=== PATIENT | female | born 1985 | race Caucasian/White ===

== ENCOUNTER 2017-09-12 15:43 | Emergency (ER) | payer MEDICAID, SELFPAY ==
[2017-09-12 15:43] VITALS: BP 133/90; PULSE 101; RESP 18; TEMP 36.1; O2SAT 100; BMI 48.0
--- NOTE | 2017-09-12 16:00 | ED.VISSUMM ---
- ER Visit Summary Date of Service: 09/12/17 Chief Complaint: Neck pain History of Present Illness: The patient is a 32 F states she woke 3 days ago with right-sided neck pain. She thinks she slept on it wrong. She continues to have pain with palpation with turning her head to the side. She has been taking ibuprofen 800 mg into the single dose of Flexeril. Patient states she now has a headache because of the neck pain. She denies pain radiating into her arms. She denies paresthesias or weakness. Physical Examination: Vital signs are unremarkable. Patient's lying in bed no acute distress. Head neck examination was no obvious external sign of trauma. She is reproducible tenderness along the sternocleidomastoid on the right side of her neck. No edema is noted. TMs are clear with some scarring noted on the right. No acute infection is appreciated. Heart is regular rate and rhythm. Lung sounds are clear. Neuro exam is normal. Test Results: [] Emergency Department Course and Treatment: I discussed with patient that anti-inflammatories and muscle relaxants are appropriate. She will be given new prescriptions for ibuprofen and Flexeril. These will be sent to [facility] for her. Treatment Plan: [] Disposition: Discharge Impression: Muscle spasm, right sternomastoid. This note was generated with [employer] dictation software. It may contain incorrect words, spelling, and punctuation that were not noted in review of the chart prior to signing ED Disposition - Plan for ED Patient: Chief Complaint: Other, Pain/Inj Referrals: Guy Patiño MD [Primary Care Provider] -
--- NOTE | 2017-09-12 16:02 | ED.DEP ---
ED Disposition - Plan for ED Patient: Disposition: Home or Assisted Living Chief Complaint: Other, Pain/Inj Prescriptions: Ibuprofen [Motrin] 800 mg PO TID PRN PRN #20 tab PRN Reason: Pain Cyclobenzaprine [Flexeril] 10 mg PO TID PRN #20 tab PRN Reason: Muscle Spasm Referrals: Guy Patiño MD [Primary Care Provider] - 1 Week if not improving
[2017-09-12] MEDS: Ibuprofen 400 MG Tablet 800 MG PO (16:13)
== END 2017-09-12 16:18 | disposition home or self-care (01) ==
LOC: ED 16:07
PROVIDERS: Emergency Provider Emergency Medicine; Family Provider Internal Medicine; PCP Internal Medicine
DX: M62.838 Other muscle spasm (principal); E66.9 Obesity, unspecified; F41.9 Anxiety disorder, unspecified; F31.9 Bipolar disorder, unspecified; Z87.442 Personal history of urinary calculi; Z72.0 Tobacco use; Z79.899 Other long term (current) drug therapy
CPT/HCPCS: 99283

== ENCOUNTER 2017-09-19 16:50 | Emergency (ER) | payer MEDICAID, SELFPAY ==
[2017-09-19 16:52] VITALS: BP 128/81; PULSE 104; RESP 16; TEMP 36.9; O2SAT 98; BMI 48.0
--- NOTE | 2017-09-19 17:29 | CT_ITS ---
STUDY: CT ABDOMEN AND PELVIS WITHOUT CONTRAST REASON FOR EXAM: Female, 32 years old. Right flank pain, heavy period x 2 days RADIATION DOSAGE (If Supplied By Facility): CTDIvol = ( 17.58 ) mGy, DLP = ( 976.86 ) mGycm TECHNIQUE: Transaxial images were obtained from the dome of the diaphragm to the symphysis pubis without oral contrast, and without intravenous contrast. Sagittal and coronal images were reconstructed. Individualized dose optimization techniques were used for this CT. COMPARISON: July 26, 2017. FINDINGS: The visualized lung bases are unremarkable. The visualized portions of the heart are within normal limits. Normal liver. Nonvisualization of the gallbladder. No significant dilatation of the extrahepatic biliary system. Normal spleen. Normal pancreas. Normal bilateral adrenal glands. Normal right kidney. Normal left kidney. Normal visualized stomach. Normal small intestine. Normal colon. The appendix is visualized. Normal abdominal aorta. Normal inferior vena cava. Normal retroperitoneum. Normal urinary bladder. Normal uterus. Tubal ligation clips in the pelvis. Normal abdominal wall. Normal osseous structures. CT/Abdomen/Pelvis without Cont IMPRESSION: No acute pathology is noted of the abdomen and pelvis. Electronically Signed: Jose Alberto Kenney DO at 18:57 EST Tel [phone], Service support ,
[2017-09-19] MEDS: Ketorolac 30 MG/ML Syringe IV (17:42)
[2017-09-19] MEDS: proCHLORPERazine 10 MG/2 ML Vial IV (17:42)
[2017-09-19] MEDS: 0.9% Normal Saline 1,000 ML 999 ML IV (17:42)
[2017-09-19] MEDS: DiphenhydrAMINE 50 MG/ML Syringe IV (17:42)
[2017-09-19 18:14] LABS: Absolute Lymphocyte Count 2.57 X10^3/ul (0.83-4.51); Absolute Neutrophil Count 4.8 X10^3/uL (2.0-7.7); Basophil# 0.04 X10^3/uL; Basophil% 0.5 % (0-1); Eosinophil# 0.35 X10^3/uL; Eosinophils% 4.2 % (0-5); Hematocrit 33.3 % (37-47); Hemoglobin 10.1 g/dl (12.0-15.0); Lymphocyte # 2.57 X10^3/ul (4.0); Lymphocyte % 30.6 % (19-41); Mean Corp Hgb Conc 30.3 g/gl (32-36); Mean Corpuscular Hgb 22.7 pg (27.0-32.0); Mean Corpuscular Volume 74.8 fL (81-99); Mean Platelet Vol. 10.7 fl (6.2-12.0); Monocyte# 0.66 X10^3/uL; Monocyte% 7.8 % (0-10); Neutrophil # 4.78 X10^3/uL (2.7-7.7); Neutrophil % 56.8 % (47-70); Platelet Count 305 K/mm3 (150-450); RBC Distribution Width CV 20.3 % (11.6-14.6); RBC Distribution Width SD 52.8 fl (35.1-43.9); Red Blood Count 4.45 M/mm3 (4.2-5.4); White Blood Count 8.4 K/mm3 (4.4-11.0)
[2017-09-19 18:18] LABS: Differential Indicated SCAN CRITERIA MET; POSITIVE COUNT NO; POSITIVE DIFFERENTIAL NO; POSITIVE MORPHOLOGY YES
[2017-09-19 18:39] LABS: Anion Gap 7 (5-15); BUN 11 mg/dL (7-18); BUN/Creat Ratio 22.5 RATIO (10-20); Calcium,Total 8.8 mg/dL (8.5-10.1); Chloride 109 mmol/L (98-107); Creatinine, Serum 0.49 mg/dL (0.55-1.02); EST Glomerular Filtration Rate 158 mL/min (>60); Est Glom Filt Rate - Afr Amer 191 mL/min (>60); Estimated Creatinine Clearance 181.54 ml/min; Glucose 93 mg/dL (74-106); Potassium 3.5 mmol/L (3.5-5.1); Sodium Level 141 mmol/L (136-145)
[2017-09-19 18:45] LABS: Anisocytosis 1+; Differential Comment SCANNED; Hypochromasia 1+; Microcytosis 1+; Ovalocyte RARE
[2017-09-19 18:52] VITALS: RESP 14
[2017-09-19 19:01] LABS: Pregnancy, Serum, hCG Quali. NEGATIVE Negative (0-9 Nonpreg)
[2017-09-19 19:34] LABS: Bacteria 0 SEEN /hpf (None Seen); White Blood Cells 0 SEEN /hpf (0-5)
[2017-09-19 19:35] LABS: Color, Urine Yellow (Yellow); Glucose, Dipstick Normal (Normal); Leukocyte Esterase-Dipstick 25 /ul (Negative); Nitrite-Dipstick Negative (Negative); Occult Blood-Urine Negative /ul (Negative); Protein-Dipstick 15 mg/dl (Negative); Specific Gravity, Urine 1.025 (1.002-1.030); Urine Clarity Sl. Cloudy (Clear); Urine Urobilinogen 4 mg/dl (Normal)
[2017-09-19 19:38] LABS: Ketone-Dipstick Negative (Negative)
--- NOTE | 2017-09-19 19:39 | ED.DCSUM_ITS ---
- ER Visit Summary Date of Service: 09/19/17 Chief Complaint: Vaginal bleeding History of Present Illness: The patient is a [address] Campbell and Dr[address] Patiño. She reports that she has vaginal bleeding began approximately 3 days ago. States that initially it was similar to her normal.. However, this morning she been passing clots approximately size of a quarter. She reports the bleeding has become heavier and she is now having to change a tampon once an hour. Patient reports a sharp stabbing right lower quadrant and right flank pain that began today. Senna 10 severity. Is worsened by movement. She is not taking anything for pain. States is similar to when she had kidney stones in the past. Finally on review of systems patient complains of a migraine headache to 6 out of 10 severity. She reports she has a history of similar headaches. She denies any numbness or weakness. Physical Examination: Vitals: Stable. Afebrile. General: Well-nourished and well-developed. Head: Normocephalic atraumatic. Neck: Supple, no lymphadenopathy. No JVD. Nontender. Cardiovascular: Regular rate and rhythm. No murmurs. Respiratory: No respiratory distress. Clear to auscultation bilaterally. Abdominal: Soft, mild right lower quadrant tenderness to palpation, nondistended , normal bowel sounds. No guarding, rebound, or peritoneal signs. Pelvic: Refused. Back: Moderate right CVA tenderness. Extremities: Nontender, no edema. Skin: Normal color, no rash. Neurologic: Alert and oriented ?3. Cranial nerves II through XII are intact. Normal strength and sensation. Psych: Normal affect. Test Results: CBC is marked for an H&H of 10.1 and 33.3. Her hemoglobin has ranged between 9.8 and 11.3 since 2017. Chem-7 is more for chloride of 109 and creatinine is 0.49. test is negative. CT flank shows no ureteral stones. Also shows a normal appendix. Urinalysis is negative. Emergency Department Course and Treatment: Patient had an IV placed. She was given Toradol, Benadryl, Compazine IV. She is resting comfortably. Treatment Plan: Patient was discussed with Dr. Hayes. She is instructed to take ibuprofen for pain and follow-up with Dr. Campbell in 2 weeks if not improving. Disposition: To home in improved and stable condition. Impression: 1. Dysfunctional uterine bleeding. 2. Flank pain, uncertain cause. This note was generated with [employer] dictation software. It may contain incorrect words, spelling, and punctuation that were not noted in review of the chart prior to signing ED Disposition - Plan for ED Patient: Disposition: Home or Assisted Living Chief Complaint: Vag Bleeding Instructions: ED Bleed Irregular Vaginal, ED Flank Pain Uncertain Cause Prescriptions: Ibuprofen [Motrin] 800 mg PO TID PRN PRN #20 tablet PRN Reason: Pain Referrals: Quincy Campbell MD [STAFF PHYSICIAN] - 1-2 Weeks Guy Patiño MD [Primary Care Provider] - 3-5 Days if not improving
[2017-09-19 19:40] LABS: Urine Bilirubin Dipstick 1 mg/dL (Negative)
[2017-09-19 19:51] LABS: Mucous, Urine 2+ /hpf (<or=2+); Squamous Epithelial Cells - UA 0-5 SEEN /hpf (5-10)
[2017-09-19 19:53] LABS: Red Blood Cells-Urine 0 SEEN /hpf (0-5)
[2017-09-19 20:22] VITALS: BP 120/66; PULSE 85; RESP 16; O2SAT 95
== END 2017-09-19 20:27 | disposition home or self-care (01) ==
LOC: ED 17:35
PROVIDERS: Emergency Provider Emergency Medicine; Family Provider Internal Medicine; PCP Internal Medicine
DX: N93.8 Other specified abnormal uterine and vaginal bleeding (principal); R10.9 Unspecified abdominal pain; Z87.442 Personal history of urinary calculi; Z72.0 Tobacco use
CPT/HCPCS: 74176; 80048; 81001; 84703; 85025; 96361; 96374; 96375; 99283; J7030; A4216

== ENCOUNTER 2017-09-26 12:19 | Emergency (ER) | payer MEDICAID, SELFPAY ==
[2017-09-26 12:20] VITALS: BP 124/47; PULSE 114; RESP 22; TEMP 36.6; O2SAT 97; BMI 48.3
--- NOTE | 2017-09-26 12:52 | ED.DCSUM_ITS ---
- ER Visit Summary Date of Service: 09/26/17 Chief Complaint: [Cough] History of Present Illness: The patient is a 32 F [presents the emergency department with 3 days of cough sore throat runny nose weakness shortness of breath. She states the cough is nonproductive. She has associated headache. Her son had a similar illness but he is doing better. She does smoke. She states her chest hurts when she coughs. 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 ] Phy blood pressure sical Examination: WN WD NAD PERRL EOMI MMM Serous otitis bilaterally NECK supple and nontender, no masses RRR no murmur rub or gallop, no peripheral edema, symmetric radial pulses Good air movement but end expiratory wheezing in all lung watkins no respiratory distress ABDOMEN is soft and nontender, normal bowel sounds, no distension, no rebound or guarding SKIN is warm and dry no rashes Alert and Oriented x3, CN II-XII in tact, no motor or sensory deficits, gait normal No lymphadenopathy [] Test Results: [] Emergency Department Course and Treatment: [Chest x-ray shows a right lower lobe infiltrate. Patient was given breathing treatments and did improve slightly. Influenza was negative. Patient's pulse ox was 97% on room air. Patient states that she did not want to go home with this because she was concerned about her children. I did describe infectious precautions with her. Currently she has no signs of sepsis. She is not in respiratory distress. I think she can safely be treated at home. I did precaution her carefully about reasons for which to return including fever and worsening shortness of breath. We will start her on Levaquin Medrol albuterol MDI and Hycodan cough syrup.] Treatment Plan: [] Disposition: [Discharge] Impression: [Community acquired pneumonia] This note was generated with [employer] dictation software. It may contain incorrect words, spelling, and punctuation that were not noted in review of the chart prior to signing ED Disposition - Plan for ED Patient: Chief Complaint: Shortness of Breath Referrals: Guy Patiño MD [Primary Care Provider] -
[2017-09-26] MEDS: Ipratropium/Albuterol Sulfate 3 ML AMPUL.NEB INHALATION (13:02)
[2017-09-26] MEDS: Albuterol 2.5 MG/3 ML VIAL.NEB. INHALATION (13:02)
[2017-09-26] MEDS: Triamcinolone Acetonide 40 MG/ML Vial IM (13:02)
[2017-09-26 13:05] VITALS: PULSE 112; RESP 18
--- NOTE | 2017-09-26 13:20 | RAD_ITS ---
STUDY: X-RAY CHEST REASON FOR EXAM: Female, 32 years old. Cough. TECHNIQUE: PA and lateral views of the chest. COMPARISON: Comparison is made with prior study dated May 08, 2017. FINDINGS: There now is evidence of focal infiltrate in the posterior medial segment of the right lower lobe. There is no demonstrated pleural abnormality. Normal size heart. Normal mediastinum and jag. Normal visualized pulmonary arteries. Normal visualized aortic arch and descending thoracic aorta. Normal visualized thoracic spine. Normal visualized ribs, clavicles, and shoulders. There is no demonstrated abnormality of the visualized soft tissue structures of the upper abdomen. RAD/Chest PA and Lateral IMPRESSION: Focal infiltrate in the posterior medial segment of the right lower lobe. Electronically Signed: Ej Sam MD at 14:02 EST Tel [phone], Service support ,
--- NOTE | 2017-09-26 14:33 | ED.DEP ---
ED Disposition - Plan for ED Patient: Chief Complaint: Shortness of Breath Instructions: ED Pneumonia Adult Prescriptions: Albuterol Inhaler [Ventolin Hfa] 1 - 2 puff INHALATION Q6H PRN PRN #1 inhaler PRN Reason: Wheezing Hydrocodone Bit/Homatropine [Hycodan Syrup] 5 ml GT Q6H PRN PRN 4 Days #100 l PRN Reason: Cough Levofloxacin [Levaquin] 750 mg PO DAILY #5 tablet MethylPREDNISolone DosePak [Medrol DosePak] 4 mg PO UD #1 box Referrals: Guy Patiño MD [Primary Care Provider] - 3-5 Days
[2017-09-26] MEDS: levoFLOXacin 750 MG Tablet PO (14:43)
[2017-09-26 14:46] VITALS: PULSE 104; TEMP 34.4
== END 2017-09-26 14:47 | disposition home or self-care (01) ==
PROVIDERS: Emergency Provider Emergency Medicine; Family Provider Internal Medicine; PCP Internal Medicine
DX: J18.9 Pneumonia, unspecified organism (principal); F17.200 Nicotine dependence, unspecified, uncomplicated; E66.9 Obesity, unspecified
CPT/HCPCS: 71046; 87804; 90471; 94640; 96372; 99283

== ENCOUNTER 2017-09-28 12:45 | Emergency (ER) | payer MEDICAID, SELFPAY ==
[2017-09-28 12:47] VITALS: BP 125/75; PULSE 119; RESP 22; TEMP 36.5; O2SAT 94; BMI 47.0
[2017-09-28] MEDS: Ipratropium/Albuterol Sulfate 3 ML AMPUL.NEB INHALATION (13:10)
[2017-09-28] MEDS: Albuterol 2.5 MG/3 ML VIAL.NEB. INHALATION ×3 (13:10→13:12)
[2017-09-28 13:11] VITALS: PULSE 84; RESP 20
[2017-09-28 13:37] VITALS: PULSE 119; RESP 22; O2SAT 92
[2017-09-28 13:45] VITALS: O2SAT 93
--- NOTE | 2017-09-28 14:32 | ED.DCSUM_ITS ---
- ER Visit Summary Date of Service: 09/28/17 Chief Complaint: I am no better History of Present Illness: The patient is a 32 F seen on September 26 and diagnosed with pneumonia. Dictation, lab results, x-ray were reviewed. Was treated with levofloxacin 750 mg and albuterol metered-dose inhaler. She continues to smoke. She denies fever or chills. She states I am afraid to fall asleep because I may not wake up. She denies history of asthma. She denies headache, photophobia sips of her neck. She does complain of nasal congestion. She denies any GI or symptoms. She denies any leg pain, swelling discoloration. Physical Examination: Vital signs are remarkable for a heart rate of 119 and respiratory rate of 24. Pulse ox on room air is 94%. Temperature is 97.7. Patient has a depressed affect. Head is atraumatic normocephalic. Pupils are equal round reactive. Extraocular muscles are intact. TMs are pearly white with landmarks noted. Nares patent with minimal clear drainage. Posterior pharynx without erythema or exudate. Uvula is midline. There is no dysphonia or dysphasia. Trachea is midline. There is no stridor with auscultation of the neck. Heart is regular without murmur, gallop or rub. Lungs reveal wheezing throughout with increased x-ray phase. There is no use of accessory muscles or retractions. Abdomen is soft and nontender. There is no asymmetry, swelling, discoloration, leg vein distention, palpable cords or tenderness along the distribution of the deep venous system. Test Results: Peak flow was initially 0. With poor effort according to respiratory position she had a peak flow of 120. After treatment peak flow was 200. Emergency Department Course and Treatment: Good with DuoNeb and albuterol. She was reevaluated at 1410. She is no longer tachypnic and she is wheeze free. Treatment Plan: Has been instructed to stop smoking. Use the inhaler every 2 hours while awake for the next 2 days. Patient told me after I informed her that she does not meet criteria for admission that she should have gone to [facility]. She stated I had a friend who was seen here and you guys did not think. She went to [place] and she was admitted. Disposition: Discharge to home in stable and improved condition Impression: 1. Community acquired pneumonia, right middle lobe 2. Bronchospasm secondary #1 This note was generated with [employer] dictation software. It may contain incorrect words, spelling, and punctuation that were not noted in review of the chart prior to signing ED Disposition - Plan for ED Patient: Disposition: Home or Assisted Living Chief Complaint: Shortness of Breath Instructions: ED Pneumonia Adult, ED Wheezing Referrals: Guy Patiño MD [Primary Care Provider] - 3-5 Days if not improving Additional Instructions: 2 puffs of inhaler every 2 hours while awake for the next 2-3 days then every 4 hours as needed for wheezing
[2017-09-28 15:07] VITALS: RESP 17
[2017-09-28 15:10] VITALS: PULSE 112; RESP 17; O2SAT 93
== END 2017-09-28 15:11 | disposition home or self-care (01) ==
PROVIDERS: Emergency Provider Emergency Medicine; Family Provider Internal Medicine; PCP Internal Medicine
DX: J18.9 Pneumonia, unspecified organism (principal); J98.01 Acute bronchospasm; F17.200 Nicotine dependence, unspecified, uncomplicated; E66.9 Obesity, unspecified; Z79.51 Long term (current) use of inhaled steroids; Z79.899 Other long term (current) drug therapy
CPT/HCPCS: 94640; 99283

== ENCOUNTER → 2017-10-06 15:37 | Outpatient (CLI) | payer MEDICAID, SELFPAY ==
--- NOTE | 2017-10-06 15:40 | RAD_ITS ---
STUDY: X-RAY CHEST REASON FOR EXAM: Female, 32 years old. Cough and dyspnea. TECHNIQUE: PA and lateral views of the chest. COMPARISON: None. FINDINGS: Focal infiltrate in the posterior medial segment of the right lower lobe. There is no demonstrated pleural abnormality. Normal size heart. Normal mediastinum and jag. Normal visualized pulmonary arteries. Normal visualized aortic arch and descending thoracic aorta. Normal visualized thoracic spine. Normal visualized ribs, clavicles, and shoulders. There is no demonstrated abnormality of the visualized soft tissue structures of the upper abdomen. RAD/Chest PA and Lateral IMPRESSION: Focal infiltrate in the posterior medial segment of the right lower lobe. Electronically Signed: Ej Sam MD at 16:00 EST Tel [phone], Service support ,
== END ==
PROVIDERS: Family Provider Internal Medicine; PCP Internal Medicine; Visit Provider Nurse Practitioner Family
DX: R06.00 Dyspnea, unspecified (principal)
CPT/HCPCS: 71046

== ENCOUNTER 2017-10-13 14:53 | Emergency (ER) | payer MEDICAID, SELFPAY ==
[2017-10-13 14:54] VITALS: BP 131/80; PULSE 105; RESP 18; TEMP 36.6; O2SAT 98; BMI 46.9
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
[2017-10-13] MEDS: Naproxen 250 MG Tablet 500 MG PO (15:17)
== END 2017-10-13 15:25 | disposition home or self-care (01) ==
PROVIDERS: Emergency Provider Emergency Medicine; Family Provider Internal Medicine; PCP Internal Medicine
DX: M54.2 Cervicalgia (principal); M54.5 Low back pain; M54.6 Pain in thoracic spine; G89.29 Other chronic pain; Z72.0 Tobacco use; Z79.51 Long term (current) use of inhaled steroids; Z79.899 Other long term (current) drug therapy; V09.9XXA Pedestrian injured in unspecified transport accident, initial encounter; Y93.89 Activity, other specified; Y92.007 Garden or yard of unspecified non-institutional (private) residence as the place of occurrence of the external cause; Y99.8 Other external cause status
CPT/HCPCS: 99283

== ENCOUNTER 2017-12-25 21:45 | Emergency (ER) | payer MEDICAID, SELFPAY ==
[2017-12-25 21:46] VITALS: BP 137/75; PULSE 109; RESP 16; TEMP 36.9; O2SAT 96; BMI 49.8
--- NOTE | 2017-12-25 22:41 | CT_ITS ---
CT Head or Brain W/O Contrast INDICATION: HEADACHE-LT SIDED HEAD PAIN THAT COMES AND GOES AND LEAVES A METAL TASTE IN HER MOUTH,PT WAS SHIELDEDHX:ASTHMA,COPD,BIPOLAR,MIGRAINES,HYDROCEPHALUS A CHILD COMPARISON: February 07, 2017 TECHNIQUE: Noncontrast axial CT examination of the brain. Radiation dose optimization applied. FINDINGS: The ventricular system is normal in size and symmetric. The cortical sulci, sylvian fissures, and basal cisterns are well seen. The kent-white matter junction is distinct. There is no evidence of acute intracranial hemorrhage, mass effect, midline shift, or abnormal extra-axial collection. The calvarium is intact and the visualized paranasal sinuses and mastoid air cells are clear. CT/Brain/Head without Contrast IMPRESSION: Stable examination without evidence of acute intracranial abnormality by noncontrast CT. at 0012 Reported and signed by: Subha Valentin MD Electronically Signed: Subha Valentin MD at 0:10 EDT Tel , Service support ,
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
[2017-12-25] MEDS: Ketorolac 30 MG/ML Syringe 15 MG IV (23:06)
[2017-12-25] MEDS: 0.9% Normal Saline 1,000 ML 999 ML IV (23:06)
[2017-12-25] MEDS: DiphenhydrAMINE 50 MG/ML Syringe 25 MG IV (23:07)
[2017-12-25] MEDS: Metoclopramide 10 MG/2 ML Vial IV (23:07)
[2017-12-26 00:30] VITALS: BP 98/60; PULSE 94; RESP 17; O2SAT 98
--- NOTE | 2017-12-26 00:37 | ED.DEP ---
ED Disposition - Plan for ED Patient: Disposition: Home or Assisted Living Chief Complaint: Headache Instructions: ED Cephalgia Unspecified Prescriptions: Naproxen [Naprosyn] 500 mg PO BID PRN #20 tab Referrals: Guy Patiño MD [Primary Care Provider] - 1-2 Days if not improving
== END 2017-12-26 00:55 | disposition home or self-care (01) ==
PROVIDERS: Emergency Provider Emergency Medicine; Family Provider Internal Medicine; PCP Internal Medicine
DX: R51 Headache (principal); F41.9 Anxiety disorder, unspecified; F32.9 Major depressive disorder, single episode, unspecified; E66.9 Obesity, unspecified; Z72.0 Tobacco use; Z79.51 Long term (current) use of inhaled steroids; Z79.899 Other long term (current) drug therapy
CPT/HCPCS: 70450; 96361; 96374; 96375; 99283; J7030

== ENCOUNTER 2018-01-30 21:06 | Emergency (ER) | payer MEDICAID, SELFPAY ==
[2018-01-30 21:07] VITALS: BP 128/73; PULSE 103; RESP 16; TEMP 36.7; O2SAT 98; BMI 49.9
[2018-01-30] MEDS: Ondansetron 4 MG/2 ML Vial IV (21:45)
[2018-01-30] MEDS: 0.9% Normal Saline 1,000 ML 1000 ML IV (21:46)
[2018-01-30] MEDS: Dicyclomine 10 MG Capsule 20 MG PO (21:46)
[2018-01-30 21:58] LABS: Bacteria 0 SEEN /hpf (None Seen); Mucous, Urine 0 SEEN /hpf (<or=2+); Red Blood Cells-Urine 0 SEEN /hpf (0-5); White Blood Cells 0 SEEN /hpf (0-5)
[2018-01-30 22:01] LABS: BUN 6 mg/dL (7-18); Creatinine, Serum 0.54 mg/dL (0.55-1.02); EST Glomerular Filtration Rate 139 mL/min (>60); Estimated Creatinine Clearance 164.73 ml/min; Glucose 96 mg/dL (74-106)
[2018-01-30 22:02] LABS: Anion Gap 4 (5-15); Calcium,Total 8.8 mg/dL (8.5-10.1); Chloride 106 mmol/L (98-107); Est Glom Filt Rate - Afr Amer 168 mL/min (>60); Sodium Level 139 mmol/L (136-145)
[2018-01-30 22:06] LABS: Color, Urine YELLOW (Yellow); Glucose, Dipstick Normal (Normal); Ketone-Dipstick Negative (Negative); Leukocyte Esterase-Dipstick Negative /ul (Negative); Nitrite-Dipstick Negative (Negative); Occult Blood-Urine Negative /ul (Negative); Protein-Dipstick Negative (Negative); Urine Bilirubin Dipstick Negative (Negative); Urine Clarity Sl. Cloudy (Clear); Urine Urobilinogen Normal (Normal)
[2018-01-30 22:09] LABS: Squamous Epithelial Cells - UA 0-5 SEEN /hpf (5-10)
--- NOTE | 2018-01-30 23:17 | ED.VISSUMM ---
- ER Visit Summary Date of Service: 01/30/18 Chief Complaint: Severe abdominal pain that started 2 days ago History of Present Illness: The patient is a 32 F who presents with severe bilateral lower abdominal pain started 2 days ago. She states it is aching. This is associated with nausea and vomiting. Upon further questioning was determined that she has chronic nausea vomiting and her nausea vomiting is been intermittent. She reports one loose stool today. She denies any contacts with ill friends. She has not been on antibiotics last month. She denies ingestion anything that may have tasted unusual to her. She is status post bilateral tubal ligation and cholecystectomy. Review of prior records reveals history of chronic abdominal pain of unknown cause, diarrhea of unknown cause and intermittent nausea vomiting of unknown cause. Past surgical history bilateral tubal ligation cholecystectomy. There is a history of depression. She states she has abnormal menses and was told by her access representative Dr. Hayes that she will continue to have abnormal menses. She has no symptoms of i.e. breast fullness, tenderness, frequency or urgency. She has not had any weight gain. Physical Examination: Vital signs are remarkable for a heart rate 103. BMI is 50. Head is atraumatic normocephalic. Pupils are equal round reactive. Extraocular muscles are intact. TMs are pearly white with landmarks noted. Nares patent with no drainage. Posterior pharynx without erythema or exudate. Uvula is midline. There is no dysphonia or dysphasia. Trachea is midline. There is no stridor with auscultation of the neck. Heart is regular without murmur, gallop or rub. S1 and S2 are normal. Lungs are clear to auscultation with good movement of air bilaterally. Abdomen is remarkable for tenderness when I place my stethoscope on her abdomen for auscultation. She complains of severe pain prior to any pressure. There is no CVA tenderness noted. There is no dermatologic lesions noted. She has a depressed affect. Neuro exam is nonfocal. Test Results: BMP is unremarkable. UA is unremarkable. Emergency Department Course and Treatment: It is my professional medical opinion the patient's abdominal pain has a non-organic cause. She has been instructed to follow-up with her doctor and discuss possible causes. Treatment Plan: Discharged home with appropriate home-going instructions Disposition: Discharge to home and follow-up with her physician Impression: 1. Bilateral lower quadrant abdominal pain of unknown etiology 2. Chronic intermittent nausea and vomiting 3. Abnormal bowel movement This note was generated with [employer] dictation software. It may contain incorrect words, spelling, and punctuation that were not noted in review of the chart prior to signing ED Disposition - Plan for ED Patient: Disposition: Home or Assisted Living Chief Complaint: Abd Pain Instructions: ED Abdominal Pain Unkn Cause Referrals: Guy Patiño MD [Primary Care Provider] - 3-5 Days if not improving ()
--- NOTE | 2018-01-30 23:17 | ED.RN ---
FAMILY APPROACHES DESK STATING THAT PATIENT CONTINUES TO HAVE PAIN, DR. MACIAS MADE AWARE.
--- NOTE | 2018-01-30 23:31 | ED.RN ---
DR. MACIAS MADE AWARE OF CONTINUED PAIN AND BENTYL NOT EFFECTIVENESS. PAIN LEVEL IS STILL A LEVEL 9. HE STATES HE IS NOT GIVING HER ANYTHING ELSE.
[2018-01-30 23:35] VITALS: BP 101/63; PULSE 90; O2SAT 98
== END 2018-01-30 23:41 | disposition home or self-care (01) ==
PROVIDERS: Emergency Provider Emergency Medicine; Family Provider Internal Medicine; PCP Internal Medicine
DX: R10.30 Lower abdominal pain, unspecified (principal); R11.2 Nausea with vomiting, unspecified; E66.9 Obesity, unspecified; Z68.43 Body mass index [BMI] 50.0-59.9, adult; F32.9 Major depressive disorder, single episode, unspecified; Z79.899 Other long term (current) drug therapy
CPT/HCPCS: 80048; 81001; 96361; 96374; 99283; A4216; J2405

== ENCOUNTER 2018-02-01 21:58 | Emergency (ER) | payer MEDICAID, SELFPAY ==
[2018-02-01 21:59] VITALS: BP 132/92; PULSE 103; RESP 16; TEMP 36.6; O2SAT 99; BMI 49.6
--- NOTE | 2018-02-01 22:38 | ED.VISSUMM ---
- ER Visit Summary Date of Service: 02/01/18 Chief Complaint: Abdominal pain History of Present Illness: The patient is a 32 F presenting with bilateral lower quadrant abdominal pain. She states this started 4 days ago. She was seen in the ED 2 days ago. She states she had blood work done and was discharged. She continues to have severe pain in the bilateral lower abdomen. She has nausea with no vomiting. She had diarrhea 2 days ago but no diarrhea today. She has history of previous cholecystectomy and tubal ligation. She is a smoker. She denies fever. Physical Examination: Vitals are stable. Patient is afebrile. Alert no acute distress. HEENT exam is unremarkable. Neck is supple. Lungs are clear and equal bilaterally. Heart is regular rate and rhythm. Abdomen is soft obese, bilateral lower quadrant tenderness with no rebound or guarding. Erythema surrounding the umbilicus with no fluctuance. Skin is warm and dry. No focal neurologic deficit. Remainder of exam is unremarkable. Emergency Department Course and Treatment: Patient given morphine, Zofran. CBC shows white count 12.6, hemoglobin 10.6. Chemistries unremarkable except potassium 3.4. Urinalysis unremarkable. HCG negative. CT abdomen pelvis with IV and oral contrast shows no acute process. She is given clindamycin for abdominal wall cellulitis. She is given a prescription for Bentyl and Zofran. Advised return to ED for worsening complaints. Advised to follow-up with primary care physician. Disposition: Discharge home Impression: Abdominal pain, abdominal wall cellulitis This note was generated with [employer] dictation software. It may contain incorrect words, spelling, and punctuation that were not noted in review of the chart prior to signing ED Disposition - Plan for ED Patient: Chief Complaint: Abd Pain Referrals: Guy Patiño MD [Primary Care Provider] -
[2018-02-01 22:42] LABS: Bacteria 0 SEEN /hpf (None Seen); Mucous, Urine 0 SEEN /hpf (<or=2+); Red Blood Cells-Urine 0 SEEN /hpf (0-5); White Blood Cells 0 SEEN /hpf (0-5)
[2018-02-01 22:44] LABS: Color, Urine Yellow (Yellow); Glucose, Dipstick Normal (Normal); Ketone-Dipstick Negative (Negative); Leukocyte Esterase-Dipstick Negative /ul (Negative); Nitrite-Dipstick Negative (Negative); Occult Blood-Urine Negative /ul (Negative); Protein-Dipstick Negative (Negative); Urine Bilirubin Dipstick Negative (Negative); Urine Clarity Clear (Clear); Urine Urobilinogen Normal (Normal)
[2018-02-01 22:49] LABS: Squamous Epithelial Cells - UA 0-5 SEEN /hpf (5-10)
[2018-02-01] MEDS: 0.9% Normal Saline 1,000 ML 1000 ML IV (22:53)
[2018-02-01] MEDS: Ondansetron 4 MG/2 ML Vial IV (22:53)
[2018-02-01] MEDS: Morphine 4 MG/ML Syringe IV (22:54)
[2018-02-01 22:56] LABS: Absolute Lymphocyte Count 2.73 X10^3/ul (0.83-4.51); Absolute Neutrophil Count 8.5 X10^3/uL (2.0-7.7); Basophil# 0.03 X10^3/uL; Basophil% 0.2 % (0-1); Eosinophil# 0.47 X10^3/uL; Eosinophils% 3.7 % (0-5); Hematocrit 33.4 % (37-47); Hemoglobin 10.6 g/dl (12.0-15.0); Lymphocyte # 2.73 X10^3/ul (4.0); Lymphocyte % 21.6 % (19-41); Mean Corp Hgb Conc 31.7 g/gl (32-36); Mean Corpuscular Hgb 22.7 pg (27.0-32.0); Mean Corpuscular Volume 71.5 fL (81-99); Mean Platelet Vol. 10.4 fl (6.2-12.0); Monocyte# 0.89 X10^3/uL; Neutrophil # 8.48 X10^3/uL (2.7-7.7); Neutrophil % 67.3 % (47-70); Platelet Count 347 K/mm3 (150-450); RBC Distribution Width CV 20.6 % (11.6-14.6); RBC Distribution Width SD 52.2 fl (35.1-43.9); Red Blood Count 4.67 M/mm3 (4.2-5.4); White Blood Count 12.6 K/mm3 (4.4-11.0)
[2018-02-01 22:57] LABS: Differential Indicated SCAN CRITERIA MET; POSITIVE COUNT NO; POSITIVE DIFFERENTIAL NO; POSITIVE MORPHOLOGY YES
[2018-02-01 23:06] LABS: Anion Gap 4 (5-15); BUN 4 mg/dL (7-18); BUN/Creat Ratio 7.7 RATIO (10-20); Chloride 105 mmol/L (98-107); Creatinine, Serum 0.52 mg/dL (0.55-1.02); EST Glomerular Filtration Rate 147 mL/min (>60); Est Glom Filt Rate - Afr Amer 178 mL/min (>60); Estimated Creatinine Clearance 171.07 ml/min; Glucose 89 mg/dL (74-106); Potassium 3.4 mmol/L (3.5-5.1); Sodium Level 137 mmol/L (136-145)
[2018-02-01 23:16] LABS: Anisocytosis 1+; Differential Comment SCAN
[2018-02-01 23:17] LABS: Hypochromasia 1+; Microcytosis 1+; Polychromasia 1+
[2018-02-01 23:19] LABS: Pregnancy, Serum, hCG Quali. NEGATIVE Negative (0-9 Nonpreg)
[2018-02-02 00:06] VITALS: RESP 16
[2018-02-02 02:07] VITALS: RESP 18; O2SAT 96
--- NOTE | 2018-02-02 02:19 | ED.DEP ---
ED Disposition - Plan for ED Patient: Chief Complaint: Abd Pain Instructions: ED Abdominal Pain Unkn Cause Prescriptions: Ondansetron [Zofran Odt] 4 mg PO Q8H PRN PRN #10 tablet PRN Reason: Nausea Dicyclomine HCl [Bentyl] 20 mg PO TIDAC #20 capsule Clindamycin [Cleocin] 300 mg PO 4X/DAY #80 capsule Referrals: Guy Patiño MD [Primary Care Provider] -
[2018-02-02] MEDS: Morphine 4 MG/ML Syringe IV (02:28)
[2018-02-02] MEDS: Clindamycin HCl 150 MG Capsule 300 MG PO (02:28)
[2018-02-02 02:44] VITALS: BP 128/69; PULSE 76; RESP 18; O2SAT 95
--- NOTE | 2018-02-02 22:36 | CT_ITS ---
STUDY: CT ABDOMEN AND PELVIS WITH CONTRAST REASON FOR EXAM: Female, 32 years old. PERSISTENT ABD PAIN X 4 DAYS WITH N/D, REDNESS AROUND UMBILICAL REGION, HX TUBAL LIGATION, COPD, [place], [place] RADIATION DOSAGE (If Supplied By Facility): CTDIvol = ( 21.96 ) mGy, DLP = ( 1846.80 ) mGycm TECHNIQUE: Transaxial images were obtained from the dome of the diaphragm to the symphysis pubis without oral contrast. 100ML ml of Isovue 300 contrast was administered. Sagittal and coronal images were reconstructed. Individualized dose optimization techniques were used for this CT. COMPARISON: None. FINDINGS: The visualized lung bases are unremarkable. The visualized portions of the heart are within normal limits. Normal liver. Normal gallbladder and extrahepatic biliary system. Normal spleen. Normal pancreas. Normal bilateral adrenal glands. Normal right kidney. Normal left kidney. Normal visualized stomach. Normal small intestine. Normal colon. The appendix is visualized and appears normal. Normal abdominal aorta. Normal inferior vena cava. Normal retroperitoneum. Normal urinary bladder. Normal abdominal wall. Normal osseous structures. CT/Abdomen/Pelvis WITH Contrast IMPRESSION: Normal enhanced CT of the abdomen and pelvis. Electronically Signed: Kami Stapleton MD at 2:08 EDT Tel , Service support ,
== END 2018-02-02 02:45 | disposition home or self-care (01) ==
PROVIDERS: Emergency Provider Emergency Medicine; Family Provider Internal Medicine; PCP Internal Medicine
DX: L03.311 Cellulitis of abdominal wall (principal); R10.30 Lower abdominal pain, unspecified; F17.200 Nicotine dependence, unspecified, uncomplicated; G89.29 Other chronic pain; F32.9 Major depressive disorder, single episode, unspecified; Z79.51 Long term (current) use of inhaled steroids; Z79.899 Other long term (current) drug therapy
CPT/HCPCS: 74177; 80048; 81001; 84703; 85025; 96361; 96374; 96375; 96376; 99285; J7030; Q9967; A4216; J2405

== ENCOUNTER 2018-03-06 16:57 | Outpatient (RCR) | payer MEDICAID, SELFPAY ==
--- NOTE | 2018-03-14 10:44 | HP.FCE ---
HP OT Functional Capacity Eval - Task Lift Comments: unemployed - Reference Duration Sedentary Sedentary Light Light Light Medium Medium Medium Heavy Very Heavy Heavy Occasional (0-33% of day) Frequent (34-66% of day) Constant (67-100% of day) 10 # Negligible Negligible 15 # 8 # Negligible 20 # 10# Negli. 35 # 18 # 7 # 50 # 25 # 10 # 75 # 100 # >100 # 38 # 50 # >50 # 15 # 20 # >20 # - Patient Information Height: 5 ft 10 in Weight:: 155.582 kg Hand Dominance: Right Handed - Medical History Medical History Including Restrictions: Pt states medical hx: anxiety, depression, PTSD, Sciatica nerve damage R side, sx L ankle, L knee pain, gall bladder removal, kidney stones, R leg pain, chronic pain syndrome, DDD Lumbar spine. Tens unit for lower back pain. - Diagnoses Diagnoses: Pt states medical hx: anxiety, depression, PTSD, siatica nerve damage R side, sx L ankle, L knee pain, gall bladder removal, kidney stones, R leg pain, chronic pain syndrome, DDD Lumbar spine. - Symptoms Symptoms: Pt reports sharp, stabbing pain in lower back, pain down R leg and when it starts to tingle then will go to sleep on pt. Occassional bilateral arm numbness. Pt states L leg will go numb if sits in different positions. Pt states has Tens unit for lower back pain. - Pain Pain: Pt states at rest lower back 6/10, movement 10/10 lower back pain, R leg pain, sharp pain 8/10. 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 - ADLS ADLS: Pt lives in 2 story house 1.5 steps to enter house no handrail. AMB independently, no device needed. Pt has flight of 15 steps to 2nd floor where bedroom and bathroom are 10 of the steps have 1 handrail. Pt states handrail is not very sturdy. Lives w/ spouse, her 2 boys and grandmother. Pt reports that she requires assist with socks/shoes, pants and bending down. She is independent with UB dressing. States her spouse washes feet for bathing tasks because she can't bend down. Spouse completes laundry. Pt states she is able to complete cooking if she stands for a little amount of time and then sits down in chair and switches back and forth between the two. Bathroom setup is tub/shower no AE, std toilet seat. Sleeps in regular bed with use of 6 pillows to help prop self up. Drives. - Physical Examination Physical Examination: Pt completed functional activities questionnaire stating the following: No I don't exercise regularly. No I can't do yard work, No I can't sit through a movie, play or concert. No I can't walk in yard. No I can't walk around the block. Yes/No she is able to shop for groceries if she rides in a scooter. No she is not able to carry groceries into the house and put them away. No can't do laundry. Yes/No she can walk up/down steps, she reports it takes 10 minutes to climb 15 steps. No she is not able to cook and do housework such as sweeping, vacuuming and cleaning. Yes she is able to bath, feed, dress and otherwise care for herself. Pt reports can drive or ride in a car for 1/2 hr before needs to get out and stretch. Can't walk at a mall, fair or event. Usually sits for 8-12 hrs a day. Usually stands/walks for 1/2hr a day unless made. Usually lie/recline for 3-4 hrs a day. States most comfortable position is laying on left side. ROM: BUE ROM WFL. BLE ROM WFL Strength: Generalized MMT. L UE 4-/5, R UE 3+/5. L LE 3+/5, R LE 3/5 Right Termite Treater Helper Strength Average: 58.33 Left Termite Treater Helper Strength Average: 55.66 Right Lateral Pinch Average: 12.00 Left Lateral Pinch Average: 11.33 Right Tripod Pinch Average: 9.00 Left Tripod Pinch Average: 9.00 Sensation: Pt has numbness/tingling R leg and when it starts to tingle then will go to sleep on pt. Occassional bilateral arm numbness. Pt states L leg will go numb if sits in different positions Fine Motor: No concerns, pt states independent with medication containers, buttons/zippers and all fine motor tasks. Balance: Pt reports fell beginning of December carrying stuff down steps inside. Mainly has been on steps when falls. Occassional leaning to L or R while walking. No falls during evaluation. - Non Material Handling Activities Bending: Pt states unable to complete or trial secondary to back pain Squatting: Pt states unable to complete or trial secondary to back pain Kneeling: Pt states unable to complete or trial secondary to back pain Reaching out/up: Pt able to complete without loss of balance reaching out to sides and up outside base of support. Walking: Pt able to walk 237ft from lobby to OT area with one standing rest break needed for back pain. Pt able to complete 3 minutes of the 15 minute walk test before needing to sit down secondary to pain in lower back, pt stated unable to walk anymore. Standing: limited standing secondary to back pain, frequent seated rest breaks needed between activities Sitting: Pt able to sit for 40 minutes Climbing Stairs: Pt declined to trial steps stating she wouldn't be able to complete other sections of testing if she trialed the steps and she would rather try the other physical tasks. - Dynamic Occasional Lifting Capacity Floor Lift: Pt states unable to complete or attempt due to back pain Knee Lift: 1x 5lb max Waist Lift: 1x 5lb max Shoulder Lift: 1x 5lb max Overhead Lift: 1x 5lb max Carryin/10 pain lower back to carry 5lbs max Comments: Pt very painful with all lifting tasks.
== END 2018-03-06 19:00 | disposition home or self-care (01) ==
LOC: OT 16:57
PROVIDERS: Family Provider Internal Medicine; PCP Internal Medicine
DX: M79.604 Pain in right leg (principal); M51.36 Other intervertebral disc degeneration, lumbar region; G89.4 Chronic pain syndrome
CPT/HCPCS: 97165; 97166

== ENCOUNTER 2018-03-09 15:31 | Emergency (ER) | payer MEDICAID, SELFPAY ==
[2018-03-09 15:32] VITALS: BP 139/94; PULSE 103; RESP 22; TEMP 37.2; O2SAT 99; BMI 49.0
[2018-03-09] MEDS: Ketorolac 30 MG/ML Syringe IV (17:01)
[2018-03-09] MEDS: 0.9% Normal Saline 1,000 ML 999 ML IV (17:01)
[2018-03-09] MEDS: proCHLORPERazine 10 MG/2 ML Vial IV (17:02)
[2018-03-09] MEDS: DiphenhydrAMINE 50 MG/ML Syringe IV (17:02)
--- NOTE | 2018-03-09 17:32 | ED.VISSUMM ---
- ER Visit Summary Date of Service: 03/09/18 Chief Complaint: Headache History of Present Illness: The patient is a 33 F who states that for the past 4 days she has had an occipital headache that is now generalized. She states that she is out of her gabapentin and and her Ativan. She states the headache is now flaring her anxiety. She states that she has tried everything for her headache and by that she means she has tried Tylenol. The patient states that in the past she has had a history of headaches but has not had any significant migraine like this recently. She denies any preceding aura. She notes nausea and vomiting. She denies any fevers. She denies any stiff neck. Physical Examination: Afebrile vital signs stable Gen: Well-nourished well-developed morbidly obese laying in the bed in a darkened room Head: Normocephalic atraumatic Eyes: Perrl EOMI reports mild photophobia ENT: TMs clear no rhinorrhea moist mucous membranes Neck: Supple no lymphadenopathy no JVD nontender CVS: Regular rate rhythm no murmurs normal S1-S2 Respiratory: No distress clear to auscultation bilaterally chest nontender Abdomen: Soft nontender nondistended normal bowel sounds no masses Back: Nontender Extremity: Nontender no edema Skin: Normal color no rash Neuro: alert orientated ?3 CN II-XII intact normal strength sensation reflexes gait cerebellar Psych: Normal affect normal mood Emergency Department Course and Treatment: Patient received Toradol Compazine Benadryl and IV fluids. She states her headache is better. To be discharged home with some Zofran some ibuprofen and some prednisone. Return if worsening or concerns. Impression: 1. Headache This note was generated with [employer]desk dictation software. It may contain incorrect words, spelling, and punctuation that were not noted in review of the chart prior to signing ED Disposition - Plan for ED Patient: Disposition: Home or Assisted Living Chief Complaint: Headache Instructions: ED Cephalgia Unspecified Prescriptions: Ondansetron [Zofran Odt] 4 mg PO Q8H PRN PRN #10 tab PRN Reason: Nausea Ibuprofen [Motrin] 800 mg PO TID PRN PRN #20 tab PRN Reason: Pain Prednisone [Deltasone] 40 mg PO DAILY #6 tab Referrals: Guy Patiño MD [Primary Care Provider] - 3-5 Days if not improving
[2018-03-09 17:56] VITALS: PULSE 86; RESP 16; O2SAT 94
[2018-03-09 19:43] VITALS: BP 126/84; PULSE 84; RESP 16; RESP 18; O2SAT 96; O2SAT 98
== END 2018-03-09 19:48 | disposition home or self-care (01) ==
PROVIDERS: Emergency Provider Emergency Medicine; Family Provider Internal Medicine; PCP Internal Medicine
DX: R51 Headache (principal); E66.01 Morbid (severe) obesity due to excess calories; J44.9 Chronic obstructive pulmonary disease, unspecified; F41.9 Anxiety disorder, unspecified; F31.9 Bipolar disorder, unspecified; Z72.0 Tobacco use; Z79.51 Long term (current) use of inhaled steroids; Z79.899 Other long term (current) drug therapy
CPT/HCPCS: 96361; 96374; 96375; 99283; J7030

== ENCOUNTER 2018-03-10 14:52 | Emergency (ER) | payer MEDICAID, SELFPAY ==
[2018-03-10 14:52] VITALS: BP 126/78; PULSE 101; RESP 16; TEMP 36.3; O2SAT 98; BMI 49.2
--- NOTE | 2018-03-10 15:45 | RAD_ITS ---
STUDY: X-RAY - LEFT WRIST REASON FOR EXAM: Female, 33 years old. Fall. Generalized pain. TECHNIQUE: 3 view(s) of the wrist were obtained. COMPARISON: None. FINDINGS: Normal visualized distal radius and ulna. Normal radiocarpal articulation. Normal distal radioulnar articulation. Normal carpal bones. Normal carpal articulations. Normal carpometacarpal articulation of the thumb. Normal second through fifth carpometacarpal articulations. Normal visualized metacarpal bones. The soft tissue structures are unremarkable. RAD/Wrist min 3 Views IMPRESSION: Normal x-ray examination of the wrist. Electronically Signed: Jefferson Schwab MD at 16:49 EDT , Service support ,
--- NOTE | 2018-03-10 15:45 | CT_ITS ---
STUDY: CT BRAIN WITHOUT CONTRAST REASON FOR EXAM: Female, 33 years old. Trauma RADIATION DOSAGE (If Supplied By Facility): CTDIvol = ( 44.99 ) mGy, DLP = ( 812.98 ) mGycm TECHNIQUE: Transaxial CT imaging of the brain was performed without administration of intravenous contrast material. Individualized dose optimization techniques were used for this CT. COMPARISON: December 25, 2017 FINDINGS: Normal soft tissue structures. Normal calvarium. Normal size ventricles and extra-axial spaces for the patient's age. Normal white matter tracts of the cerebral hemispheres. Normal basal ganglia and thalami. Normal brainstem. Normal cerebellum. There is no intracranial hemorrhage. There are no findings of an acute ischemic infarction. Small mucous retention cyst in the right ethmoid sinus CT/Brain/Head without Contrast IMPRESSION: Normal unenhanced CT scan of the brain. Electronically Signed: Kory Wiggins MD at 16:59 EDT , Service support ,
--- NOTE | 2018-03-10 15:56 | ED.VIS.GEN ---
History of Present Illness Chief Complaint: Fall Informant: Patient Onset: Hours - 1.5 Context: Sudden Onset - rolled ankle while stepping on piece of wood Timing: Continuous Quality: ache Location: left ankle. left wrist. head. Current Severity: headache moderate. left ankle pain mild. - wrist Maximum Severity: Severe Worsened by: moving Relieved by: remaining still Associated Symptoms: blurry vision left visual field w/ both eyes, which is better now Narrative: No loss of consciousness. Nauseated, no vomiting. No neck or back pain other than her chronic low back sciatica. Able to walk without any difficulty, she states I am not very worried about my ankle. Right-hand dominant. Hx migraines. - Past Medical History (1) Migraines Status: Chronic (2) Anxiety Status: Chronic (3) Chronic low back pain Status: Chronic (4) Depression Status: Chronic (5) Kidney stones Status: Chronic Past Medical History - Allergies and Home Meds Allergies/Adverse Reactions: Allergies ceftriaxone sodium [From Rocephin] Allergy (Verified 03/09/18 15:34) Hives tramadol Allergy (Verified 03/09/18 15:34) Hives bupropion HCl [From Wellbutrin] Adverse Reaction (Verified 03/09/18 15:34) MAKES ANXIETY WORSE Primary Care Physician: Guy Patiño MD [Primary Care Provider] - Surgical History: appendectomy, tonsillectomy Lives: Spouse/ Significant Other Smoking Status: Current every day smoker Review of Systems All systems negative except as indicated Eyes: Reports: Visual changes - bilaterally. Denies: Diplopia Gastrointestinal: Reports: Nausea. Denies: Vomiting Musculoskeletal: Reports: Back pain, Extremity Pain. Denies: Neck pain Neurological: Reports: Headache, Numbness - all left fingers only. Denies: Weakness Physical Exam Vital Signs/Narrative: Vital Signs Temp Pulse Resp BP Pulse Ox 03/10/18 14:52 97.4 F L 101 H 16 126/78 H 98 Inital Vital Signs reviewed: Yes General: Well nourished, Well developed, Obese, Unkempt Head: Normocephalic, Trauma, Tenderness - left parietal scalp. contusion w/o hematoma or palpable skull fx. no depression/crepitance. Eyes: Perrl, EOMI, - - visual watkins intact ENT: Moist mucous membranes, No rhinorrhea, TM's clear, - - no Jay sign or raccoon eyes.. Negative for: Sinus tenderness Neck: Supple - from, Nontender Extremities: No edema, Tenderness - diffuse left wrist incl carpus. left lateral malleolus w/ swelling. refuses to move left wrist or left fingers due to pain. FROM left ankle and all other joints., - - no deformities Skin: Normal color, No rash. Negative for: Trauma Neurological: Alert, Oriented x3, Cranial nerves II-XII grossly intact, Normal Strength, Parasthesia - all left fingers; brisk CR. Diagnostic/Tx/Re-eval Clinical Impression(s) from Imaging Studies Brain CT 03/10/18 15:45 IMPRESSION: Normal unenhanced CT scan of the brain. Electronically Signed: Kory Wiggins MD at 16:59 EDT , Service support , Wrist X-Ray 03/10/18 15:45 IMPRESSION: Normal x-ray examination of the wrist. Electronically Signed: Jefferson Schwab MD at 16:49 EDT , Service support , Ankle X-Ray 03/10/18 15:59 IMPRESSION: Soft tissue swelling. No acute osseous abnormality. Electronically Signed: Jefferson Schwab MD at 16:50 EDT , Service support , - Medical Decision Making X-rays and CT head are normal with no apparent fractures. Her visual field symptoms resolved on reevaluation. She is quite tender around the area of the scaphoid, so a Velcro thumb spica splint was applied to her left wrist and she was advised to follow-up if still having significant discomfort in 1 week for repeat x-rays and evaluation. An Rodney wrap was placed on her left ankle, she was given pain medication here which helped. Encouraged to take anti-inflammatories [id number] at home as needed for pain. She is comfortable with that plan. ED Disposition - Plan for ED Patient: Disposition: Home or Assisted Living Chief Complaint: Fall Diagnosis: Left ankle sprain, Left wrist sprain, Closed head injury without loss of consciousness Instructions: ED Sprain Wrist, Treating Ankle Sprains Referrals: Guy Patiño MD [Primary Care Provider] - 1-2 Weeks Additional Instructions: ice/ibuprofen as needed for pain
--- NOTE | 2018-03-10 15:59 | RAD_ITS ---
STUDY: X-RAY - LEFT ANKLE REASON FOR EXAM: Female, 33 years old. Twisting injury after fall. Lateral pain and swelling. TECHNIQUE: 3 view(s) of the ankle. COMPARISON: None. FINDINGS: Normal visualized distal tibia and fibula. Normal medial and lateral malleoli. Normal tibiotalar articulation and ankle mortise. Normal visualized talus and calcaneus. The visualized subtalar, talonavicular, calcaneocuboid and tarsal articulations are normal. There is generalized soft tissue swelling. RAD/Ankle min 3 Views IMPRESSION: Soft tissue swelling. No acute osseous abnormality. Electronically Signed: Jefferson Schwab MD at 16:50 EDT , Service support ,
--- NOTE | 2018-03-10 16:00 | ED.DCSUM_ITS ---
History of Present Illness Chief Complaint: Fall Informant: Patient Onset: Hours - 1.5 Context: Sudden Onset - rolled ankle while stepping on piece of wood Timing: Continuous Quality: ache Location: left ankle. left wrist. head. Current Severity: headache moderate. left ankle pain mild. - wrist Maximum Severity: Severe Worsened by: moving Relieved by: remaining still Associated Symptoms: blurry vision left visual field w/ both eyes, which is better now Narrative: No loss of consciousness. Nauseated, no vomiting. No neck or back pain other than her chronic low back sciatica. Able to walk without any difficulty, she states I am not very worried about my ankle. Right-hand dominant. Hx migraines. - Past Medical History (1) Migraines Status: Chronic (2) Anxiety Status: Chronic (3) Chronic low back pain Status: Chronic (4) Depression Status: Chronic (5) Kidney stones Status: Chronic Past Medical History - Allergies and Home Meds Allergies/Adverse Reactions: Allergies ceftriaxone sodium [From Rocephin] Allergy (Verified 03/09/18 15:34) Hives tramadol Allergy (Verified 03/09/18 15:34) Hives bupropion HCl [From Wellbutrin] Adverse Reaction (Verified 03/09/18 15:34) MAKES ANXIETY WORSE Primary Care Physician: Guy Patiño MD [Primary Care Provider] - Surgical History: appendectomy, tonsillectomy Lives: Spouse/ Significant Other Smoking Status: Current every day smoker Review of Systems All systems negative except as indicated Eyes: Reports: Visual changes - bilaterally. Denies: Diplopia Gastrointestinal: Reports: Nausea. Denies: Vomiting Musculoskeletal: Reports: Back pain, Extremity Pain. Denies: Neck pain Neurological: Reports: Headache, Numbness - all left fingers only. Denies: Weakness Physical Exam Vital Signs/Narrative: Vital Signs Temp Pulse Resp BP Pulse Ox 03/10/18 14:52 97.4 F L 101 H 16 126/78 H 98 Inital Vital Signs reviewed: Yes General: Well nourished, Well developed, Obese, Unkempt Head: Normocephalic, Trauma, Tenderness - left parietal scalp. contusion w/o hematoma or palpable skull fx. no depression/crepitance. Eyes: Perrl, EOMI, - - visual watkins intact ENT: Moist mucous membranes, No rhinorrhea, TM's clear, - - no Jay sign or raccoon eyes.. Negative for: Sinus tenderness Neck: Supple - from, Nontender Extremities: No edema, Tenderness - diffuse left wrist incl carpus. left lateral malleolus w/ swelling. refuses to move left wrist or left fingers due to pain. FROM left ankle and all other joints., - - no deformities Skin: Normal color, No rash. Negative for: Trauma Neurological: Alert, Oriented x3, Cranial nerves II-XII grossly intact, Normal Strength, Parasthesia - all left fingers; brisk CR. Diagnostic/Tx/Re-eval Clinical Impression(s) from Imaging Studies Brain CT 03/10/18 15:45 IMPRESSION: Normal unenhanced CT scan of the brain. Electronically Signed: Kory Wiggins MD at 16:59 EDT , Service support , Wrist X-Ray 03/10/18 15:45 IMPRESSION: Normal x-ray examination of the wrist. Electronically Signed: Jefferson Schwab MD at 16:49 EDT , Service support , Ankle X-Ray 03/10/18 15:59 IMPRESSION: Soft tissue swelling. No acute osseous abnormality. Electronically Signed: Jefferson Schwab MD at 16:50 EDT , Service support , - Medical Decision Making X-rays and CT head are normal with no apparent fractures. Her visual field symptoms resolved on reevaluation. She is quite tender around the area of the scaphoid, so a Velcro thumb spica splint was applied to her left wrist and she was advised to follow-up if still having significant discomfort in 1 week for repeat x-rays and evaluation. An Rodney wrap was placed on her left ankle, she was given pain medication here which helped. Encouraged to take anti- inflammatories [id number] at home as needed for pain. She is comfortable with that plan. ED Disposition - Plan for ED Patient: Disposition: Home or Assisted Living Chief Complaint: Fall Diagnosis: Left ankle sprain, Left wrist sprain, Closed head injury without loss of consciousness Instructions: ED Sprain Wrist, Treating Ankle Sprains Referrals: Guy Patiño MD [Primary Care Provider] - 1-2 Weeks Additional Instructions: ice/ibuprofen as needed for pain
[2018-03-10] MEDS: Naproxen 500 MG Tablet PO (16:13)
[2018-03-10] MEDS: HYDROcodone Bitartrate/Apap 5/325 Tablet PO (16:13)
[2018-03-10] MEDS: Ondansetron ODT 4 MG Tablet 8 MG PO (16:13)
[2018-03-10 17:39] VITALS: RESP 16
--- NOTE | 2018-03-10 17:40 | ED.RN ---
REVIEWED D/C INSTRUCTIONS, FOLLOW UP CARE, AND S/S THAT WOULD WARRANT A RETURN TO THE ED WITH PT. PT VERBALIZED AN UNDERSTANDING AND DENIES FURTHER QUESTIONS FOR THIS RN. PT SKIN P/W/D, RESP EVEN AND UNLABORED, PT A&O X 3, NO DISTRESS NOTED. PT AMBULATED OUT OF ED, GAIT STEADY.
== END 2018-03-10 17:42 | disposition home or self-care (01) ==
PROVIDERS: Emergency Provider Emergency Medicine; Family Provider Internal Medicine; PCP Internal Medicine
DX: S93.402A Sprain of unspecified ligament of left ankle, initial encounter (principal); S63.502A Unspecified sprain of left wrist, initial encounter; S00.03XA Contusion of scalp, initial encounter; Z87.442 Personal history of urinary calculi; E66.9 Obesity, unspecified; X50.1XXA Overexertion from prolonged static or awkward postures, initial encounter; Y93.01 Activity, walking, marching and hiking; Y92.89 Other specified places as the place of occurrence of the external cause; Y99.8 Other external cause status
CPT/HCPCS: 70450; 73110; 73610; 99284

== ENCOUNTER 2018-03-12 20:33 | Emergency (ER) | payer MEDICAID, SELFPAY ==
[2018-03-12 20:34] VITALS: BP 164/98; PULSE 104; RESP 18; TEMP 36.8; O2SAT 100; BMI 49.2
--- NOTE | 2018-03-12 20:35 | RAD_ITS ---
STUDY: X-RAY - LEFT WRIST REASON FOR EXAM: Female, 33 years old. Trauma TECHNIQUE: 3 view(s) of the wrist were obtained. COMPARISON: Previous recent study of 03/10/2018 FINDINGS: Normal visualized distal radius and ulna. Normal radiocarpal articulation. Normal distal radioulnar articulation. Normal carpal bones. Normal carpal articulations. Normal carpometacarpal articulation of the thumb. Normal second through fifth carpometacarpal articulations. Normal visualized metacarpal bones. The soft tissue structures are unremarkable. RAD/Wrist min 3 Views IMPRESSION: Normal x-ray examination of the wrist. Electronically Signed: Tod Zamarripa MD at 20:55 EDT , Service support ,
[2018-03-12] MEDS: oxyCODONE 5 MG Tablet PO (22:13)
--- NOTE | 2018-03-12 22:14 | ED.DEP ---
ED Disposition - Plan for ED Patient: Chief Complaint: Upper Extremity Injury Instructions: ED Sprain Wrist Prescriptions: Hydrocodone Bitart/Apap 5-325 [[place] 5MG-325MG] 1 tablet PO Q6H PRN PRN 3 Days #10 tablet PRN Reason: Pain Referrals: Guy Patiño MD [Primary Care Provider] -
--- NOTE | 2018-03-12 22:15 | DCINST.ED_ITS ---
ED Disposition - Plan for ED Patient: Chief Complaint: Upper Extremity Injury Instructions: ED Sprain Wrist Prescriptions: Hydrocodone Bitart/Apap 5-325 [[place] 5MG-325MG] 1 tablet PO Q6H PRN PRN 3 Days # 10 tablet PRN Reason: Pain Referrals: Guy Patiño MD [Primary Care Provider] -
--- NOTE | 2018-03-12 22:19 | ED.VISSUMM ---
- ER Visit Summary Date of Service: 03/12/18 Chief Complaint: Left wrist pain History of Present Illness: The patient is a 33 F presenting with left wrist pain. She states she fell on Monday after tripping. She was seen in the ED at that time. She was given a Velcro wrist splint. She states today she was not wearing her splint and she got up and tripped over a toy. She again landed on her left wrist. She did not hit her head or lose consciousness. She denies other injury. Physical Examination: Vitals are stable. Patient is afebrile. Alert no acute distress. HEENT exam is unremarkable. Neck is nontender Lungs are clear and equal bilaterally. Heart is regular rate and rhythm. Abdomen is soft nontender nondistended. Extremities left wrist diffuse tenderness, painful range of motion, NVID Skin is warm and dry. Remainder of exam is unremarkable. Emergency Department Course and Treatment: X-ray of the left wrist shows no acute process. Advised to continue wearing her Velcro wrist splint. She is given a short course of [place]. She is advised to ice and elevate. Advised return ED if worsening complaints. Advised to follow-up with primary care physician. Disposition: Discharge home Impression: Left wrist sprain This note was generated with [employer] dictation software. It may contain incorrect words, spelling, and punctuation that were not noted in review of the chart prior to signing ED Disposition - Plan for ED Patient: Chief Complaint: Upper Extremity Injury Instructions: ED Sprain Wrist Prescriptions: Hydrocodone Bitart/Apap 5-325 [[place] 5MG-325MG] 1 tablet PO Q6H PRN PRN 3 Days #10 tablet PRN Reason: Pain Referrals: Guy Patiño MD [Primary Care Provider] -
[2018-03-12 22:36] VITALS: RESP 18; O2SAT 97
== END 2018-03-12 22:37 | disposition home or self-care (01) ==
LOC: ED 21:37
PROVIDERS: Emergency Provider Emergency Medicine; Family Provider Internal Medicine; PCP Internal Medicine
DX: S63.502D Unspecified sprain of left wrist, subsequent encounter (principal); W01.0XXD Fall on same level from slipping, tripping and stumbling without subsequent striking against object, subsequent encounter; F41.9 Anxiety disorder, unspecified; F32.9 Major depressive disorder, single episode, unspecified; Z72.0 Tobacco use; Z79.51 Long term (current) use of inhaled steroids; Z79.891 Long term (current) use of opiate analgesic; Z79.899 Other long term (current) drug therapy
CPT/HCPCS: 73110; 99283

== ENCOUNTER → 2018-03-27 16:37 | Outpatient (CLI) | payer MEDICAID, SELFPAY ==
[2018-03-27 17:37] LABS: Anion Gap 11 (5-15); BUN 5 mg/dL (7-18); BUN/Creat Ratio 7.7 RATIO (10-20); Calcium,Total 8.6 mg/dL (8.5-10.1); Chloride 105 mmol/L (98-107); Creatinine, Serum 0.65 mg/dL (0.55-1.02); EST Glomerular Filtration Rate 113 mL/min (>60); Est Glom Filt Rate - Afr Amer 137 mL/min (>60); Glucose 111 mg/dL (74-106); Potassium 3.5 mmol/L (3.5-5.1); Sodium Level 141 mmol/L (136-145)
== END ==
PROVIDERS: Family Provider Internal Medicine; PCP Internal Medicine; Visit Provider Nurse Practitioner Family
DX: M25.562 Pain in left knee (principal); F19.90 Other psychoactive substance use, unspecified, uncomplicated
CPT/HCPCS: 36415; 73562; 80048

== ENCOUNTER → 2018-04-10 09:58 | Outpatient (CLI) | payer MEDICAID, SELFPAY | PROVIDERS: Family Provider Internal Medicine; PCP Internal Medicine; Visit Provider Nurse Practitioner Family | DX: R05 Cough (principal) | CPT/HCPCS: 71046 ==

== ENCOUNTER 2018-04-10 12:46 | Inpatient (IN) | payer MEDICAID, SELFPAY ==
[2018-04-10] VITALS (9 sets, daily range): BP systolic 108–126; BP diastolic 70–83; PULSE 84–112; RESP 16–20; TEMP 36–37.1; O2SAT 87–96; BMI 48.0; BMI 47.9
--- NOTE | 2018-04-10 13:26 | ED.VISSUMM ---
- ER Visit Summary Date of Service: 04/10/18 Chief Complaint: Cough and wheezing History of Present Illness: The patient is a 33 F kidney stones. Patient states for the last 10 days she has had cough, congestion wheezing. She is also had nausea and vomiting. Saw her nurse practitioner and was started on Zithromax Z-JODY which she is finished and cough syrup. Today saw her nurse practitioner again and was started on prednisone which she has not taken as of yet. Basically she states she is sick of being sick. Patient does smoke 1-1/2 packs of cigarettes per day. She denies any hemoptysis. She has had respiratory infections like this before. Physical Examination: HEENT exam unremarkable mild erythema left TM. Posterior pharynx unremarkable neck nontender no lymphadenopathy. Lungs expiratory wheezing throughout. Dry cough. No rales. No rhonchi. Heart regular rhythm rate about 100 no murmur. Abdomen morbidly obese soft nontender nondistended normal bowel sounds no peritoneal signs. Moving all 4 extremities. Neurovascularly intact. Calves nontender without edema or cords. Neurologically she is awake alert with no focal motor deficits. Back exam nontender. Test Results: Chest x-ray two-view in the ER showed no acute abnormality. There was also a chest x-ray done as an outpatient which it was a questionable hilar infiltrate which I reviewed and I would not call a pneumonia from that x-ray. Emergency Department Course and Treatment: IV fluids. IV Zofran. IV Solu-Medrol. Breathing treatments including both albuterol and DuoNeb Multiple repeat exams the patient has intermittent hypoxia. I think this is secondary to bronchospasm, viral respiratory infection and her body habitus. Treatment Plan: I will speak to the hospitalist about admission Disposition: Discharge Impression: Viral bronchitis with bronchospasm w/ hypoxia Tobacco abuse. Nausea and vomiting This note was generated with [employer] dictation software. It may contain incorrect words, spelling, and punctuation that were not noted in review of the chart prior to signing ED Disposition - Plan for ED Patient: Chief Complaint: Cough Referrals: Guy Patiño MD [Primary Care Provider] -
--- NOTE | 2018-04-10 13:30 | ED.DCSUM_ITS ---
- ER Visit Summary Date of Service: 04/10/18 Chief Complaint: Cough and wheezing History of Present Illness: The patient is a 33 F kidney stones. Patient states for the last 10 days she has had cough, congestion wheezing. She is also had nausea and vomiting. Saw her nurse practitioner and was started on Zithromax Z-JODY which she is finished and cough syrup. Today saw her nurse practitioner again and was started on prednisone which she has not taken as of yet. Basically she states she is sick of being sick. Patient does smoke 1-1/2 packs of cigarettes per day. She denies any hemoptysis. She has had respiratory infections like this before. Physical Examination: HEENT exam unremarkable mild erythema left TM. Posterior pharynx unremarkable neck nontender no lymphadenopathy. Lungs expiratory wheezing throughout. Dry cough. No rales. No rhonchi. Heart regular rhythm rate about 100 no murmur. Abdomen morbidly obese soft nontender nondistended normal bowel sounds no peritoneal signs. Moving all 4 extremities. Neurovascularly intact. Calves nontender without edema or cords. Neurologically she is awake alert with no focal motor deficits. Back exam nontender. Test Results: Chest x-ray two-view in the ER showed no acute abnormality. There was also a chest x-ray done as an outpatient which it was a questionable hilar infiltrate which I reviewed and I would not call a pneumonia from that x- ray. Emergency Department Course and Treatment: IV fluids. IV Zofran. IV Solu- Medrol. Breathing treatments including both albuterol and DuoNeb Multiple repeat exams the patient has intermittent hypoxia. I think this is secondary to bronchospasm, viral respiratory infection and her body habitus. Treatment Plan: I will speak to the hospitalist about admission Disposition: Discharge Impression: Viral bronchitis with bronchospasm w/ hypoxia Tobacco abuse. Nausea and vomiting This note was generated with [employer] dictation software. It may contain incorrect words, spelling, and punctuation that were not noted in review of the chart prior to signing ED Disposition - Plan for ED Patient: Chief Complaint: Cough Referrals: Guy Patiño MD [Primary Care Provider] -
[2018-04-10] MEDS: Ipratropium/Albuterol Sulfate 3 ML AMPUL.NEB INHALATION ×3 (13:37→22:52)
[2018-04-10] MEDS: Albuterol 2.5 MG/3 ML VIAL.NEB. INHALATION (13:37)
[2018-04-10] MEDS: 0.9% Normal Saline 1,000 ML 1000 ML IV (13:44)
[2018-04-10] MEDS: Ondansetron 4 MG/2 ML Vial IV (13:46)
[2018-04-10] MEDS: MethylPREDNISolone 125 MG/2 ML Vial IV (13:47)
--- NOTE | 2018-04-10 16:44 | NURSING ---
[facility]
--- NOTE | 2018-04-10 16:48 | NURSING ---
HOSPITALIST IN ROOM
--- NOTE | 2018-04-10 17:23 | PCM.HP.STD ---
Problem List (1) Shortness of breath Status: Acute History of Present Illness Date of Admission: 04/10/18 Chief Complaint: Shortness of breath. The patient is a 33 year old F with past medical history of asthma and nicotine dependence. She was admitted via the ED on 04/10/2018 with a complaint of 4 day history of shortness of breath with associated wheezing and fever and chills. According to patient his symptoms started 10 days ago with a cough which was initially nonproductive and became productive of clear sputum. She went to her PCP and was given a prescription for Z-Benito. However this does not help with her symptoms and shortness of breath and cough persisted and worsened. She also had associated fever and chills which is not resolving. She had decreased appetite, nausea, vomiting and generalized malaise. Symptoms were not improving so she decided to come into the ED today. In the ED, was 96.8 Fahrenheit with blood pressure being 125/70 and pulse rate of 102 as well as respiratory rate of 18. Saturation was 87% on room air. She was also noted to desaturate down to about 87 after she was giving some medication to help calm her down and sleep. Patient says she has been told she should be tested for sleep apnea and snores heavily at home. Chest x-ray done showed possible minimal increased density in the right middle lobe which could be some minimal atelectasis or scarring but no effusion. She only has started taking prednisone pack that was prescribed to her by her nurse practitioner. She has continued smoking throughout this experience. She has been admitted to be managed for viral bronchitis. [] Past Medical History Past Medical History (Chronic Problems): Chronic Problems (Last Reviewed 04/10/18 @ 09:05 by Ayla Bates) Migraines (Chronic) Depression (Chronic) Obesity (Chronic) Chronic low back pain (Chronic) Kidney stones (Chronic) Anxiety (Chronic) Medical History: Medical History (Last Reviewed 04/10/18 @ 09:05 by Ayla Bates) Obesity (Chronic) E66.9 Chronic low back pain (Chronic) M54.5, G89.29 Kidney stones (Chronic) N20.0 Anxiety (Chronic) F41.9 Anemia D64.9 Panic attacks F41.0 Bipolar depression manic phase F31.9 COPD (chronic obstructive pulmonary disease) J44.9 Hydocephalus Allergies ceftriaxone sodium [From Rocephin] Allergy (Verified 04/04/18 11:08) Hives tramadol Allergy (Verified 04/04/18 11:08) Hives bupropion HCl [From Wellbutrin] Adverse Reaction (Verified 04/04/18 11:08) MAKES ANXIETY WORSE Home Medications: Ambulatory Orders Medication Instructions Recorded albuterol sulfate HFA 90 1 - 2 puff INHALATION Q6H PRN PRN 03/27/18 mcg/actuation aerosol inhaler #1 inhaler Gabapentin [Neurontin] 100 mg PO QHS 04/10/18 codeine 10 mg-guaifenesin 100 mg/5 See Label Instructions PO Q6H PRN 04/10/18 mL oral liquid #120 ml ondansetron 4 mg disintegrating 4 mg PO TID PRN 5 Days #30 tab 04/10/18 tablet prednisone 10 mg tablet See Label Instructions PO QDAY #30 04/10/18 tab Surgical History: Surgical History (Last Reviewed 04/10/18 @ 09:05 by Ayla Bates) D&C History of 3 sections Z87.59 History of bilateral tubal ligation Z98.51 History of cholecystectomy Z98.890, Z90.49 History of tonsillectomy Z90.89 left ankle ligament repair Surgical History: appendectomy, tonsillectomy Psychiatric History: Anxiety, Depression 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: 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, - Lives: With Family Smoking Status: Current every day smoker Alcohol: None Drugs: None - *Family History Maternal Family History: Family History (Last Reviewed 04/10/18 @ 09:05 by Ayla Bates) Grandmother Asthma Thyroid disorder Mother Asthma Thyroid disorder COPD (chronic obstructive pulmonary disease) Aunt Asthma Heart disease Hypertension Thyroid disorder Emphysema, unspecified Grandfather Asthma Diabetes Hypertension Hyperlipidemia COPD (chronic obstructive pulmonary disease) History Items: COPD, Heart Disease Paternal Family History: Family History (Last Reviewed 04/10/18 @ 09:05 by Ayla Bates) Grandmother Asthma Thyroid disorder Mother Asthma Thyroid disorder COPD (chronic obstructive pulmonary disease) Aunt Asthma Heart disease Hypertension Thyroid disorder Emphysema, unspecified Grandfather Asthma Diabetes Hypertension Hyperlipidemia COPD (chronic obstructive pulmonary disease) History Items: Diabetes Review of Systems Constitutional: Reports: Anorexia, Chills, Fever, Malaise, Weakness, Fatigue Eyes: Denies: Blurred vision HEENT: Denies: Head Aches, Sinus Congestion, Sinus Drainage Cardiovascular: Denies: Chest Pain, Palpitations, Syncope Respiratory: Reports: Cough, Shortness of Breath, Shortness of breath at rest, Shortness of breath upon exertion, Sputum production, Wheezing Gastrointestinal: Reports: Diarrhea, Nausea, Vomiting. Denies: Abdominal Pain Genitourinary: Denies: Dysuria Musculoskeletal: Denies: Joint Pain, Joint Tenderness Skin: Denies: Rash, Wounds Neurological: Denies: Numbness, Tingling, Focal weakness Psychiatric: Denies: Anxiety, Depression, Homicidal Ideations, Suicidal Ideations Hematologic/ Lymphatic: Denies: Easy Bruising, Easy Bleeding VTE Information - Inpt Only VTE Present on Admission: No VTE Mechan Device Prophylaxis: None VTE Pharm Prophylaxis ordered?: Yes Patient Problems: Active and Suspected Problems (Last Reviewed 04/10/18 @ 09:05 by Ayla Bates) Shortness of breath (Acute) - Physical Exam General: Alert, Oriented x3, Cooperative, - - moderate distress HEENT: Atraumatic, PERRLA, EOMI, Normocephalic Oral: Dry Mucosa Neck: Supple, No JVD, Negative Carotid Bruits Lungs: Short of Breath - decreased breath sounds bibasally with wheezing., - - dc Cardiovascular: Regular Rhythm, Normal S1, Normal S2, No murmurs, Tachycardic Abdomen: Bowel Sounds Present, Soft, Non Tender, Non-Distended, No Hepato-splenomegaly Extremities: No clubbing, No cyanosis, No edema, Capillary Refill Less than 3 Seconds Skin: No rashes, No breakdown Musculoskeletal: No Tenderness to Palpation of Joints or Extremities Lymphatic: No Cervical, Supraclavicular, or Inguinal Adenopathy Neurological: Cranial nerves II-XII grossly intact, Motor Exam 5/5 strength throughout Psych/Mental Status: Normal Affect, Appropriate, Alert and oriented to time, place, person, mood and affect Vital Signs Temp Pulse Resp BP Pulse Ox 96.8 F L 102 H 18 125/70 H 87 04/10/18 12:47 04/10/18 15:09 04/10/18 15:09 04/10/18 15:09 04/10/18 15:09 Weight: 334 lb 6.4 oz Body Mass Index (BMI) 47.9 Diagnostic Data Chest X-Ray 04/10/18 16:01 IMPRESSION: Possible minimal increased density in the right middle lobe which could be some minimal atelectasis or scarring. Electronically Signed: Alejandro Parra MD at 16:27 EDT , Service support , Assessment/Plan All Active Problems (Last Reviewed 04/10/18 @ 09:05 by Ayla Bates) Shortness of breath (Acute) Abdominal pain (Acute) Nausea & vomiting (Acute) Acute cholecystitis (Acute) 33-year-old female with a history of asthma and nicotine dependence presenting with a 10 day history of shortness of breath and a cough productive of clear sputum. 1. Viral URTI symptoms havent resolved for past 10 days. Has associated fever, chills, anorexia, nausea and vomiting. labs not checked in ED. admit to MEd SUrg check CBC, BMP, respiratory panel with influenza screen CXR showed questionable pneumonia vs atelectasis; will defer on antibiotics for now as patient's symptoms point more towards viral etiology; per my review of xray, it is not very convincing for pneumonia resuscitate with IVF NS @ 150cc/hr oxygen to maintain saturation >92% breathing treatments with albuterol IV solumedrol 40mg q8 guafenesin cough syrup prn 2. Asthma: currently has wheezing, likely due to viral URTI. Will give breathing treatments and solumedrol 3. Acute hypoxic respiratory failure due to Probable sleep apnea and obesity hypoventilation syndrome Was noted to desaturate to around 87% on room air when she dozed off. Patient's Well score is 1.5, making PE very unlikely. Her symptoms point more towards sleep apnea, exacerbated by the viral URTI. Patient smokes heavily, Is morbidly obese with BMI of around 48. Since she has been told by a nurse to come to visit her grandmother that she needs to buy pulse oximeter to check and saturation. will refer for sleep study on outpatient basis. Oxygen to maintain saturation above 92%. 4. Nicotine dependence: nicotine patch 21mg daily 5. DVT prophylaxis: heparin Code status: Counseled about different types of CODE STATUS. Counseled about differences between full code, DNR CCA and DNR CCA. Patient elects to be full code. Total [id number] time 20 minutes. This note was generated with [employer] software. It may contain incorrect words, spelling, and punctuation that were not noted in checking the note before signing. Code Visit OBSV E&M: 20438 Initial observation care L3
[2018-04-10] MEDS: 0.9% Normal Saline 1,000 ML 150 ML IV (18:19)
[2018-04-10 19:10] LABS: Absolute Lymphocyte Count 0.65 X10^3/ul (0.83-4.51); Absolute Neutrophil Count 9.6 X10^3/uL (2.0-7.7); Basophil# 0.01 X10^3/uL; Basophil% 0.1 % (0-1); Eosinophil# 0.01 X10^3/uL; Eosinophils% 0.1 % (0-5); Hematocrit 35.4 % (37-47); Hemoglobin 10.4 g/dl (12.0-15.0); Lymphocyte # 0.65 X10^3/ul (4.0); Lymphocyte % 6.3 % (19-41); Mean Corp Hgb Conc 29.4 g/gl (32-36); Mean Corpuscular Hgb 21.7 pg (27.0-32.0); Mean Corpuscular Volume 73.8 fL (81-99); Mean Platelet Vol. 10.2 fl (6.2-12.0); Monocyte# 0.05 X10^3/uL; Monocyte% 0.5 % (0-10); Neutrophil # 9.57 X10^3/uL (2.7-7.7); Neutrophil % 92.9 % (47-70); Platelet Count 313 K/mm3 (150-450); RBC Distribution Width CV 20.3 % (11.6-14.6); RBC Distribution Width SD 54.9 fl (35.1-43.9); White Blood Count 10.3 K/mm3 (4.4-11.0)
[2018-04-10 19:11] LABS: Differential Indicated SCAN CRITERIA MET; POSITIVE COUNT NO; POSITIVE DIFFERENTIAL NO; POSITIVE MORPHOLOGY YES
[2018-04-10 19:21] LABS: Anion Gap 9 (5-15); BUN 7 mg/dL (7-18); Calcium,Total 8.8 mg/dL (8.5-10.1); Chloride 108 mmol/L (98-107); Creatinine, Serum 0.54 mg/dL (0.55-1.02); EST Glomerular Filtration Rate 141 mL/min (>60); Est Glom Filt Rate - Afr Amer 170 mL/min (>60); Estimated Creatinine Clearance 163.23 ml/min; Glucose 112 mg/dL (74-106); Potassium 4.1 mmol/L (3.5-5.1); Sodium Level 140 mmol/L (136-145)
[2018-04-10] MEDS: guaiFENesin 10 ML UDC (200MG/10ML) PO (20:11)
[2018-04-10 20:44] LABS: Anisocytosis 1+; Differential Comment SCANNED; Microcytosis RARE; Ovalocyte RARE
[2018-04-10] MEDS: Heparin Injection (Vial) 5,000 UNIT/ML VIAL 5000 UNIT SC (21:45)
[2018-04-10] MEDS: 0.9% NaCl Peripheral Flush Adult/Peds IV ×2 (21:45→23:54)
[2018-04-11] VITALS (16 sets, daily range): BP systolic 104–121; BP diastolic 68–75; PULSE 78–118; RESP 15–20; TEMP 36.6–36.9; O2SAT 91–95
[2018-04-11] MEDS: guaiFENesin 10 ML UDC (200MG/10ML) PO ×3 (00:51→20:09)
[2018-04-11] MEDS: 0.9% Normal Saline 1,000 ML 150 ML IV ×4 (02:28→23:08)
[2018-04-11] MEDS: Ipratropium/Albuterol Sulfate 3 ML AMPUL.NEB INHALATION ×6 (03:27→23:00)
[2018-04-11] MEDS: Heparin Injection (Vial) 5,000 UNIT/ML VIAL 5000 UNIT SC ×3 (05:43→21:21)
[2018-04-11 06:39] LABS: Anion Gap 9 (5-15); BUN 8 mg/dL (7-18); BUN/Creat Ratio 16.2 RATIO (10-20); Calcium,Total 8.8 mg/dL (8.5-10.1); Chloride 109 mmol/L (98-107); Creatinine, Serum 0.49 mg/dL (0.55-1.02); EST Glomerular Filtration Rate 155 mL/min (>60); Est Glom Filt Rate - Afr Amer 188 mL/min (>60); Estimated Creatinine Clearance 179.89 ml/min; Glucose 154 mg/dL (74-106); Potassium 4.1 mmol/L (3.5-5.1); Sodium Level 140 mmol/L (136-145)
[2018-04-11 07:04] LABS: Absolute Lymphocyte Count 0.89 X10^3/ul (0.83-4.51); Absolute Neutrophil Count 11.9 X10^3/uL (2.0-7.7); Hematocrit 33.2 % (37-47); Hemoglobin 9.8 g/dl (12.0-15.0); Lymphocyte # 0.89 X10^3/ul (4.0); Lymphocyte % 6.8 % (19-41); Mean Corp Hgb Conc 29.5 g/gl (32-36); Mean Corpuscular Hgb 21.9 pg (27.0-32.0); Mean Corpuscular Volume 74.1 fL (81-99); Mean Platelet Vol. 10.5 fl (6.2-12.0); Monocyte# 0.24 X10^3/uL; Monocyte% 1.8 % (0-10); Neutrophil # 11.87 X10^3/uL (2.7-7.7); Neutrophil % 91.3 % (47-70); POSITIVE COUNT NO; POSITIVE DIFFERENTIAL NO; Platelet Count 303 K/mm3 (150-450); RBC Distribution Width CV 20.6 % (11.6-14.6); RBC Distribution Width SD 55.9 fl (35.1-43.9); Red Blood Count 4.48 M/mm3 (4.2-5.4)
[2018-04-11 07:05] LABS: Differential Indicated SCAN CRITERIA MET; POSITIVE MORPHOLOGY YES
[2018-04-11 07:11] LABS: Differential Comment SCANNED
--- NOTE | 2018-04-11 09:19 | PCM.PN.HOSP ---
Patient Problems: Active and Suspected Problems (Last Reviewed 04/10/18 @ 09:05 by Ayla Bates) Shortness of breath (Acute) Subjective: Patient seen and examined. She still complains of shortness of breath and cough. She did she also had fever and chills overnight. He also complains of chest pain which is worse when she lies down and is relieved by sitting up or or lying on her side. She denies any nausea, vomiting or abdominal pain. 12 point Review of systems was otherwise negative. Vitals/I&O's: Vital Signs Temp Pulse Resp BP Pulse Ox 97.9 F 83 20 H 121/68 H 91 04/11/18 03:40 04/11/18 07:15 04/11/18 07:15 04/11/18 03:40 04/11/18 07:43 Oxygen Flow Rate (L/min) 3 Oxygen Delivery Method Nasal Cannula Weight: 334 lb 6.4 oz Body Mass Index (BMI) 47.9 Intake and Output for Last 24 Hours 04/09/18 04/10/18 04/11/18 23:59 23:59 23:59 Intake Total 875 / 875 1093 / 1093 Balance 875 / 875 1093 / 1093 General: Alert, Oriented x3, Cooperative, No apparent distress HEENT: Atraumatic, PERRLA, EOMI, Normocephalic Oral: Moist Mucosa Neck: Supple, No JVD, Negative Carotid Bruits Lungs: - - decreased breath sounds bibasally with mild wheezing. Cardiovascular: Regular rate, Regular Rhythm, Normal S1, Normal S2, No murmurs Abdomen: Bowel Sounds Present, Soft, Non Tender, Non-Distended, No Hepato-splenomegaly Extremities: No clubbing, No cyanosis, No edema, Capillary Refill Less than 3 Seconds Skin: No rashes, No breakdown Musculoskeletal: No Tenderness to Palpation of Joints or Extremities Lymphatic: No Cervical, Supraclavicular, or Inguinal Adenopathy Neurological: Cranial nerves II-XII grossly intact, Motor Exam 5/5 strength throughout Psych/Mental Status: Normal Affect, Appropriate, Alert and oriented to time, place, person, mood and affect Microbiology Past 72 Hours 04/10/18 17:37 Mucosa - Nasopharyngeal Respiratory Panel (PCR) - Final Rhinovirus Laboratory Results 04/10/18 18:09: WBC 10.3, RBC 4.80, Hgb 10.4 L, Hct 35.4 L, MCV 73.8 L, MCH 21.7 L, MCHC 29.4 L, RDW 20.3 H, RDW Differential 54.9 H, Plt Count 313, MPV 10.2, Immature Gran % (Auto) 0.100, Neut % (Auto) 92.9 H, Lymph % (Auto) 6.3 L, [place] % (Auto) 0.5, Eos % (Auto) 0.1, Baso % (Auto) 0.1, Absolute Neuts (auto) 9.6 H, Absolute Lymphs (auto) 0.65 L, Total Counted Not Reportable, Differential Comment SCANNED, Anisocytosis 1+, Microcytosis RARE, Ovalocytes RARE 04/10/18 18:09: Sodium 140, Potassium 4.1, Chloride 108 H, Carbon Dioxide 23.0, Anion Gap 9, BUN 7, Creatinine 0.54 L, Estim Creat Clear Calc 163.23, Est GFR (MDRD) Af Amer 170, Est GFR (MDRD) Non-Af 141, BUN/Creatinine Ratio 13.0, Glucose 112 H, Calcium 8.8 04/11/18 05:50: WBC 13.0 H, RBC 4.48, Hgb 9.8 L, Hct 33.2 L, MCV 74.1 L, MCH 21.9 L, MCHC 29.5 L, RDW 20.6 H, RDW Differential 55.9 H, Plt Count 303, MPV 10.5, Immature Gran % (Auto) 0.100, Neut % (Auto) 91.3 H, Lymph % (Auto) 6.8 L, [place] % (Auto) 1.8, Eos % (Auto) 0.0, Baso % (Auto) 0.0, Absolute Neuts (auto) 11.9 H, Absolute Lymphs (auto) 0.89, Total Counted Not Reportable, Differential Comment SCANNED 04/11/18 05:50: Sodium 140, Potassium 4.1, Chloride 109 H, Carbon Dioxide 22.0, Anion Gap 9, BUN 8, Creatinine 0.49 L, Estim Creat Clear Calc 179.89, Est GFR (MDRD) Af Amer 188, Est GFR (MDRD) Non-Af 155, BUN/Creatinine Ratio 16.2, Glucose 154 H, Calcium 8.8 Current Medications Albuterol/Ipratropium (Duoneb) 3 ml INHALATION Q4H.RT [facility] Last Admin: 04/11/18 07:14 Dose: 3 ml Guaifenesin (Robitussin) 10 ml PO Q4H PRN PRN PRN Reason: COUGH Last Admin: 04/11/18 00:51 Dose: 10 ml Heparin Sodium (Porcine) (Heparin Na) 5,000 unit SC Q8 [facility] Last Admin: 04/11/18 05:43 Dose: 5,000 unit Sodium Chloride () 1,000 mls @ 150 mls/hr IV .Q6H40M [facility] Last Admin: 04/11/18 02:28 Dose: 150 mls/hr Magnesium Hydroxide (Milk Of Magnesia) 30 ml PO DAILY PRN PRN PRN Reason: Constipation Methylprednisolone (Solu-Medrol) 40 mg IV Q8 [facility] Last Admin: 04/11/18 05:43 Dose: 40 mg Nicotine (Nicoderm Cq (Pbkc)) 21 mg TRANSDERM. DAILY [facility] Last Admin: 04/10/18 18:18 Dose: 21 mg Sodium Chloride () 5 - 30 ml IV UD PRN PRN Reason: SALINE FLUSH Last Admin: 04/10/18 23:54 Dose: 10 ml Medical Necessity - Tobacco Use Smoking Status: Current every day smoker Tobacco Use: Cigarettes Assessment/Plan All Active Problems (Last Reviewed 04/10/18 @ 09:05 by Ayla Bates) Shortness of breath (Acute) Abdominal pain (Acute) Nausea & vomiting (Acute) Acute cholecystitis (Acute) 33-year-old female with a history of asthma and nicotine dependence admitted with a 10 day history of shortness of breath and a cough productive of clear sputum. 1. Viral URTI Still complains of shortness of breath and cough. Has decreased breath sounds with mild wheezing bibasally. Respiratory panel was positive for rhinovirus. Negative for influenza. Continue IV fluids. Continue oxygen to maintain saturation more than 92% Continue breathing treatments with albuterol and continue IV Solu-Medrol 40 mg every 8. Continue guaifenesin. 2. Chest pain Complaints of chest pain that is worse with recumbency and relieved by sitting up. EKG done this morning did not show any diffuse ST elevation which is pathognomonic for acute viral pericarditis. EKG showed sinus arrhythmia will continue monitoring. If chest pain persists or worsens, will repeat EKG and cycle troponins 3. Asthma: wheezing has improved. still complains of cough and shortness of breath continue breathing treatments and solumedrol currently has wheezing, likely due to viral URTI. Will give breathing treatments and solumedrol 4. Acute hypoxic respiratory failure due to viral URTI, Probable sleep apnea and obesity hypoventilation syndrome remains on 3L of oxygen. Will try to wean her off oxygen refer for sleep study on outpatient basis titrate oxygen to maintain saturation >92% 5. Nicotine dependence: nicotine patch 21mg daily 6. DVT prophylaxis: heparin Code status: full code This note was generated with [employer]ation software. It may contain incorrect words, spelling, and punctuation that were not noted in checking the note before signing. Code Visit OBSV E&M: 10114 Subsequent observation care L3
[2018-04-11] MEDS: 0.9% NaCl Peripheral Flush Adult/Peds IV (14:00)
[2018-04-11] MEDS: Acetaminophen 325 MG Tablet 650 MG PO (16:36)
[2018-04-12] VITALS (8 sets, daily range): BP systolic 135–136; BP diastolic 77–97; PULSE 91–106; RESP 16–20; TEMP 36.8; O2SAT 95–97
[2018-04-12] MEDS: guaiFENesin 10 ML UDC (200MG/10ML) PO (02:19)
[2018-04-12] MEDS: Ipratropium/Albuterol Sulfate 3 ML AMPUL.NEB INHALATION ×2 (03:35→07:26)
[2018-04-12] MEDS: Acetaminophen 325 MG Tablet 650 MG PO (03:59)
[2018-04-12] MEDS: 0.9% Normal Saline 1,000 ML 150 ML IV (05:55)
[2018-04-12 06:15] LABS: Anion Gap 8 (5-15); BUN 9 mg/dL (7-18); BUN/Creat Ratio 18.1 RATIO (10-20); Calcium,Total 8.6 mg/dL (8.5-10.1); Chloride 111 mmol/L (98-107); EST Glomerular Filtration Rate 154 mL/min (>60); Est Glom Filt Rate - Afr Amer 186 mL/min (>60); Estimated Creatinine Clearance 176.29 ml/min; Glucose 134 mg/dL (74-106); Potassium 4.3 mmol/L (3.5-5.1); Sodium Level 143 mmol/L (136-145)
[2018-04-12 06:25] LABS: Absolute Lymphocyte Count 1.28 X10^3/ul (0.83-4.51); Absolute Neutrophil Count 17.8 X10^3/uL (2.0-7.7); Basophil# 0.01 X10^3/uL; Basophil% 0.1 % (0-1); Hematocrit 32.2 % (37-47); Hemoglobin 9.8 g/dl (12.0-15.0); Lymphocyte # 1.28 X10^3/ul (4.0); Lymphocyte % 6.4 % (19-41); Mean Corp Hgb Conc 30.4 g/gl (32-36); Mean Corpuscular Hgb 22.4 pg (27.0-32.0); Mean Corpuscular Volume 73.5 fL (81-99); Mean Platelet Vol. 10.4 fl (6.2-12.0); Monocyte# 0.72 X10^3/uL; Monocyte% 3.6 % (0-10); Neutrophil # 17.81 X10^3/uL (2.7-7.7); Neutrophil % 89.5 % (47-70); Platelet Count 302 K/mm3 (150-450); RBC Distribution Width CV 21.3 % (11.6-14.6); RBC Distribution Width SD 55.9 fl (35.1-43.9); Red Blood Count 4.38 M/mm3 (4.2-5.4); White Blood Count 19.9 K/mm3 (4.4-11.0)
[2018-04-12 06:26] LABS: Differential Indicated SCAN CRITERIA MET; POSITIVE COUNT NO; POSITIVE DIFFERENTIAL NO; POSITIVE MORPHOLOGY YES
[2018-04-12] MEDS: Heparin Injection (Vial) 5,000 UNIT/ML VIAL 5000 UNIT SC (06:34)
[2018-04-12 07:07] LABS: Anisocytosis 1+; Differential Comment SCAN; Hypochromasia 1+; Microcytosis 1+; Polychromasia 1+
--- NOTE | 2018-04-12 09:09 | PCA ---
devan/rn ambulating pt in [facility]
--- NOTE | 2018-04-12 09:10 | NURSING ---
PT AMBULATED IN [facility]. PULSE OX WAS 96% ON RETURN TO ROOM.
--- NOTE | 2018-04-12 09:44 | PCM.DC ---
- Discharge Diagnoses Current Active Problems: Current Active and Chronic Problems (Last Reviewed 04/10/18 @ 09:05 by Ayla Bates) Shortness of breath (Acute) You will use the following diet at home:: Cardiac Your food should be the consistency of: Regular Your liquids should be the consistency of: Regular/Thin Discharge Activity: Return to Normal Activity Weight Bearing Status: Weight bearing as tolerated Call your doctor if you observe: Fever of 101 or Higher, Shortness of breath Additional Instructions: please follow up with pulmonology to be scheduled for sleep study. Counselled strongly to stop smoking and exercise and adhere to DASH diet to lose weight. Allergies/Adverse Reactions: Allergies ceftriaxone sodium [From Rocephin] Allergy (Verified 04/04/18 11:08) Hives tramadol Allergy (Verified 04/04/18 11:08) Hives bupropion HCl [From Wellbutrin] Adverse Reaction (Verified 04/04/18 11:08) MAKES ANXIETY WORSE Medications to take at Discharge albuterol sulfate HFA 90 mcg/actuation aerosol inhaler 1 - 2 puff INHALATION Q6H PRN PRN #1 inhaler 03/27/18 Gabapentin [Neurontin] 100 mg PO QHS 04/10/18 codeine 10 mg-guaifenesin 100 mg/5 mL oral liquid See Label Instructions PO Q6H PRN #120 ml 04/10/18 ondansetron 4 mg disintegrating tablet 4 mg PO TID PRN 5 Days #30 tab 04/10/18 Prednisone 40 mg PO DAILY #10 tab 04/12/18 The following prescriptions were given: Prednisone 40 mg PO DAILY #10 tab Primary Care Physician: Guy Patiño MD [Primary Care Provider] - Please follow up with your Primary Care Physician in: 1-2 weeks Test Results: Test results from this visit will be discussed in further detail at your follow-up appointment, if applicable. Please Follow Up With: To Hernandez MD When: 1-2 weeks to be worked up for ZANA/OSH with sleep study Proposed Discharge Date: 04/12/18
--- NOTE | 2018-04-12 09:46 | PCM.DC.SUM ---
Discharge Date and Diagnosis - Problem List Patient Problems: Active and Suspected Problems (Last Reviewed 04/10/18 @ 09:05 by Ayla Bates) Shortness of breath (Acute) Date of Admission: 04/10/18 Date of Discharge: 04/12/18 - Primary Discharge Diagnosis Active and Suspected Problems (Last Reviewed 04/10/18 @ 09:05 by Ayla Bates) Shortness of breath (Acute) viral URTI - Secondary Discharge Diagnosis Chronic Problems (Last Reviewed 04/10/18 @ 09:05 by Ayla Bates) Migraines (Chronic) Depression (Chronic) Obesity (Chronic) Chronic low back pain (Chronic) Kidney stones (Chronic) Anxiety (Chronic) Hospital Course and Treatment Imaging Results: Diagnostic Data Chest X-Ray 04/10/18 16:01 IMPRESSION: Possible minimal increased density in the right middle lobe which could be some minimal atelectasis or scarring. Electronically Signed: Alejandro Parra MD at 16:27 EDT , Service support , Laboratory Tests 04/10/18 04/10/18 04/11/18 18:09 18:09 05:50 WBC 10.3 13.0 H RBC 4.80 4.48 Hgb 10.4 L 9.8 L Hct 35.4 L 33.2 L MCV 73.8 L 74.1 L MCH 21.7 L 21.9 L MCHC 29.4 L 29.5 L RDW 20.3 H 20.6 H RDW Differential 54.9 H 55.9 H Plt Count 313 303 MPV 10.2 10.5 Immature Gran % (Auto) 0.100 0.100 Neut % (Auto) 92.9 H 91.3 H Lymph % (Auto) 6.3 L 6.8 L [place] % (Auto) 0.5 1.8 Eos % (Auto) 0.1 0.0 Baso % (Auto) 0.1 0.0 Absolute Neuts (auto) 9.6 H 11.9 H Absolute Lymphs (auto) 0.65 L 0.89 Total Counted Not Reportable Not Reportable Differential Comment SCANNED SCANNED Polychromasia Hypochromasia Anisocytosis 1+ Microcytosis RARE Ovalocytes RARE Sodium 140 Potassium 4.1 Chloride 108 H Carbon Dioxide 23.0 Anion Gap 9 BUN 7 Creatinine 0.54 L Estim Creat Clear Calc 163.23 Est GFR (MDRD) Af Amer 170 Est GFR (MDRD) Non-Af 141 BUN/Creatinine Ratio 13.0 Glucose 112 H Calcium 8.8 04/11/18 04/12/18 04/12/18 05:50 05:35 05:35 WBC 19.9 H RBC 4.38 Hgb 9.8 L Hct 32.2 L MCV 73.5 L MCH 22.4 L MCHC 30.4 L RDW 21.3 H RDW Differential 55.9 H Plt Count 302 MPV 10.4 Immature Gran % (Auto) 0.400 Neut % (Auto) 89.5 H Lymph % (Auto) 6.4 L [place] % (Auto) 3.6 Eos % (Auto) 0.0 Baso % (Auto) 0.1 Absolute Neuts (auto) 17.8 H Absolute Lymphs (auto) 1.28 Total Counted Not Reportable Differential Comment SCAN Polychromasia 1+ Hypochromasia 1+ Anisocytosis 1+ Microcytosis 1+ Ovalocytes Sodium 140 143 Potassium 4.1 4.3 Chloride 109 H 111 H Carbon Dioxide 22.0 24.0 Anion Gap 9 8 BUN 8 9 Creatinine 0.49 L 0.50 L Estim Creat Clear Calc 179.89 176.29 Est GFR (MDRD) Af Amer 188 186 Est GFR (MDRD) Non-Af 155 154 BUN/Creatinine Ratio 16.2 18.1 Glucose 154 H 134 H Calcium 8.8 8.6 Microbiology 04/10/18 17:37 Mucosa - Nasopharyngeal Respiratory Panel (PCR) - Final Rhinovirus Operations: cholecystecomy Procedures: None Summary of Care Provided: The patient is a 33 year old F with past medical history of asthma and nicotine dependence. She was admitted via the ED on 04/10/2018 with a four-day history of shortness of breath with associated wheezing and fever and chills. He has started 10 days prior to admission with echo which was initially nonproductive and subsequently became productive of clear sputum. She went to her PCP and was given a prescription for Z-Benito. This did not help with her symptoms and shortness of breath and cough persisted and worsened with assisted fever and chills which are not improving. She also had decreased appetite, nausea vomiting and generalized malaise. She came into the ED which was noted to be tachycardic with pulse of 102 and respiratory rate of 18 and she was saturating at 87% on room air. She desaturated down to 87 after she dozed off after being given medication to help calm her down and sleep. She had been told that she needed to be tested for sleep apnea she snores heavily at home. Chest x-ray done showed possible minimal increased density in the right lobe which could be due to minimal atelectasis or scarring. She was admitted and managed for viral bronchitis. She was started on breathing treatments and IV Solu-Medrol. She had no elevated white cell count and respiratory panel done was positive for rhinovirus. Influenza screen was negative. Patient remained on oxygen but this was eventually titrated down to 1 L as she remained stable and was saturating above 92%. Patient improved significantly and wheezing resolved. Cough persisted but was nonproductive and improved relative to time she came in. Patient was discharged home on 04/12/2018 with a prescription for prednisone 40 mg daily for 5 days. She was also referred to pulmonology for a sleep study to be assessed for ZANA/OSH. She was counseled to stop smoking and to be compliant with her inhalers. She is to follow-up with her primary care doctor in 1 week with pulmonology in 1-2 weeks. Patient seen and examined prior to discharge. She had no complaints and felt well. Shortness of breath had improved significantly. She denied any fever chills, any chest pain, shortness of breath, any abdominal pain, any diarrhea vomiting. She was on 1 L at time of review. Patient was taken off oxygen and ambulated and saturated at 96% with ambulation on room air. o/e: Vitals: Vital Signs Height 5 ft 10 in Weight: 334 lb 7.06 oz Weight in Pounds 334.4 lbs Pulse Ox 97 Temperature 98.3 F Pulse Rate 98 Respiratory Rate 18 Blood Pressure 135/97 Blood Pressure Position Sitting [] General: Alert, Oriented x3, Cooperative, No apparent distress HEENT: Atraumatic, PERRLA, EOMI, Normocephalic Oral: Moist Mucosa Neck: Supple, No JVD, Negative Carotid Bruits Lungs: - - clear to auscultation bilaterally, no wheezing or rhonchi. Cardiovascular: Regular rate, Regular Rhythm, Normal S1, Normal S2, No murmurs Abdomen: Bowel Sounds Present, Soft, Non Tender, Non-Distended, No Hepato-splenomegaly Extremities: No clubbing, No cyanosis, No edema, Capillary Refill Less than 3 Seconds Skin: No rashes, No breakdown Musculoskeletal: No Tenderness to Palpation of Joints or Extremities Lymphatic: No Cervical, Supraclavicular, or Inguinal Adenopathy Neurological: Cranial nerves II-XII grossly intact, Motor Exam 5/5 strength throughout Psych/Mental Status: Normal Affect, Appropriate, Alert and oriented to time, place, person, mood and affect Plan as stated above. Discharge Diet: 2000 mg Sodium Diet Discharge Activity: Return to Normal Activity Weight Bearing Status: Weight bearing as tolerated Call your doctor if you observe: Fever of 101 or Higher, Shortness of breath Home Medications: Medications to take at Discharge albuterol sulfate HFA 90 mcg/actuation aerosol inhaler 1 - 2 puff INHALATION Q6H PRN PRN #1 inhaler 03/27/18 Gabapentin [Neurontin] 100 mg PO QHS 04/10/18 codeine 10 mg-guaifenesin 100 mg/5 mL oral liquid See Label Instructions PO Q6H PRN #120 ml 04/10/18 ondansetron 4 mg disintegrating tablet 4 mg PO TID PRN 5 Days #30 tab 04/10/18 Prednisone 40 mg PO DAILY #10 tab 04/12/18 Following Prescrptions Were Given to Patient: Prednisone 40 mg PO DAILY #10 tab Primary Care Physician: Guy Patiño MD [Primary Care Provider] - Please follow up with your Primary Care Physician in: 1-2 weeks Please Follow Up With: To Hernandez MD When: 1-2 weeks to be worked up for ZANA/OSH with sleep study Disposition: Home Minutes spent on discharge:: 35 Patient Condition:: Stable Medical Necessity - Tobacco Use Smoking Status: Current every day smoker Tobacco Use: Cigarettes Meaningful Use Info Meaningful Use Diagnoses (Choose all that apply): None applicable Code Visit Inpatient E&M: 83284 Disch Hosp
--- NOTE | 2018-04-13 14:20 | CASEMGMT ---
WISAM HOROWITZ Discharge F/U Phone Call LACE: 14 Strata: 4 Discharge date: 04/12/18 Call date: 04/13/18 Call time: [id number] Attempted to reach pt at this time without success, message left for pt to call Zaida JOEL CM when available. [facility] WISAM CM Admission dx: Viral Bronchitis
== END 2018-04-12 10:44 | disposition home or self-care (01) | DRG 96 ==
LOC: ED 14:26 → MS3 16:47
PROVIDERS: Admitting Provider Student in an Organized Health Care Education/Training Program; Emergency Provider Emergency Medicine; Family Provider Internal Medicine; PCP Internal Medicine; Visit Provider Student in an Organized Health Care Education/Training Program
DX: J20.6 Acute bronchitis due to rhinovirus (principal); J96.01 Acute respiratory failure with hypoxia; J45.909 Unspecified asthma, uncomplicated; F17.210 Nicotine dependence, cigarettes, uncomplicated; E66.01 Morbid (severe) obesity due to excess calories; Z68.42 Body mass index [BMI] 45.0-49.9, adult; G89.29 Other chronic pain; M54.5 Low back pain; F41.9 Anxiety disorder, unspecified
CPT/HCPCS: 36415; 71046; 80048; 85025; 87633; 93005; 94640; 97802; 99282; 99406; J7030; A4216; J2405

== ENCOUNTER → 2018-04-19 16:03 | Outpatient (CLI) | payer MEDICAID, SELFPAY ==
[2018-04-19 17:43] LABS: ALB/GLOB Ratio 0.7 RATIO (0.9-2.4); AST(SGOT) 15 U/L (15-37); Alanine Aminotransfer ALT/SGPT 29 U/L (13-56); Albumin, Serum 2.9 g/dL (3.2-5.0); Alkaline Phosphatase 100 U/L (45-117); Anion Gap 10 (5-15); BUN 4 mg/dL (7-18); BUN/Creat Ratio 7.7 RATIO (10-20); CPK Total, Creatine Kinase 74 U/L (26-192); Calcium,Total 8.4 mg/dL (8.5-10.1); Chloride 105 mmol/L (98-107); Creatinine, Serum 0.52 mg/dL (0.55-1.02); EST Glomerular Filtration Rate 147 mL/min (>60); Est Glom Filt Rate - Afr Amer 178 mL/min (>60); Globulin 3.9 g/dL (2.2-4.2); Glucose 84 mg/dL (74-106); Potassium 4.3 mmol/L (3.5-5.1); Protein, Total 6.8 g/dL (6.4-8.2); Sodium Level 140 mmol/L (136-145); Thyroid Stim Hormone (TSH) 9.96 uIU/mL (0.358-3.74)
[2018-04-19 18:02] LABS: BNP,B-Type NATRIURETIC PEPTIDE 4.1 pg/mL (0-100)
[2018-04-19 18:12] LABS: D-Dimer Quantitative (DVT/PE) < 0.27 FEU/ug/m (0.27-0.49)
[2018-04-19 18:42] LABS: Absolute Lymphocyte Count 3.63 X10^3/ul (0.83-4.51); Absolute Neutrophil Count 11.2 X10^3/uL (2.0-7.7); Basophil# 0.02 X10^3/uL; Basophil% 0.1 % (0-1); Eosinophil# 0.41 X10^3/uL; Eosinophils% 2.5 % (0-5); Hematocrit 31.6 % (37-47); Hemoglobin 9.7 g/dl (12.0-15.0); Lymphocyte # 3.63 X10^3/ul (4.0); Lymphocyte % 22.1 % (19-41); Mean Corp Hgb Conc 30.7 g/gl (32-36); Mean Corpuscular Hgb 22.5 pg (27.0-32.0); Mean Corpuscular Volume 73.3 fL (81-99); Mean Platelet Vol. 10.8 fl (6.2-12.0); Monocyte# 1.05 X10^3/uL; Monocyte% 6.4 % (0-10); Neutrophil # 11.21 X10^3/uL (2.7-7.7); Neutrophil % 68.2 % (47-70); Platelet Count 386 K/mm3 (150-450); RBC Distribution Width CV 21.3 % (11.6-14.6); RBC Distribution Width SD 54.6 fl (35.1-43.9); Red Blood Count 4.31 M/mm3 (4.2-5.4); White Blood Count 16.4 K/mm3 (4.4-11.0)
[2018-04-19 18:43] LABS: Differential Indicated SCAN CRITERIA MET; POSITIVE COUNT NO; POSITIVE DIFFERENTIAL NO; POSITIVE MORPHOLOGY YES
[2018-04-19 20:57] LABS: Anisocytosis 1+; Microcytosis 1+; Platelet Estimate ADEQUATE (ADEQ)
[2018-04-19 20:58] LABS: Hypochromasia 1+; Ovalocyte RARE; Target Cells RARE
[2018-04-21 09:09] LABS: Myoglobin, Serum 51 ng/mL (25-58)
== END ==
PROVIDERS: Family Provider Family Medicine Geriatric Medicine; PCP Family Medicine Geriatric Medicine; Visit Provider Family Medicine Geriatric Medicine
DX: R06.02 Shortness of breath (principal); R05 Cough
CPT/HCPCS: 36415; 80053; 82550; 83874; 83880; 84443; 84484; 85025; 85379; 87798

== ENCOUNTER → 2018-04-25 15:59 | Outpatient (CLI) | payer MEDICAID, SELFPAY ==
[2018-04-25 17:13] LABS: Hematocrit 32.9 % (37-47)
== END ==
PROVIDERS: Family Provider Family Medicine Geriatric Medicine; PCP Family Medicine Geriatric Medicine; Visit Provider Family Medicine Geriatric Medicine
DX: D64.9 Anemia, unspecified (principal)
CPT/HCPCS: 36415; 85014; 85018

== ENCOUNTER → 2018-04-25 20:20 | Outpatient (CLI) | payer MEDICAID, SELFPAY | PROVIDERS: Family Provider Family Medicine Geriatric Medicine; PCP Family Medicine Geriatric Medicine; Visit Provider Internal Medicine Critical Care Medicine | DX: G47.10 Hypersomnia, unspecified (principal) | CPT/HCPCS: 95810 ==

== ENCOUNTER 2018-05-13 19:59 | Emergency (ER) | payer MEDICAID, SELFPAY ==
[2018-05-13 20:00] VITALS: BP 115/67; PULSE 91; RESP 18; TEMP 36.6; O2SAT 99; BMI 49.2
--- NOTE | 2018-05-13 20:34 | CT_ITS ---
STUDY: CT SOFT TISSUE NECK WITH CONTRAST REASON FOR EXAM: Female, 33 years old. Right-sided jaw and neck swelling x5 days RADIATION DOSAGE (If Supplied By Facility): CTDIvol = ( 24.09 ) mGy, DLP = ( 733.81 ) mGycm TECHNIQUE: The patient was scanned in a multi-detector CT scanner. High resolution transaxial imaging was performed following intravenous administration of 75ML ml of Isovue 370 contrast material. Sagittal and coronal images were reconstructed. Individualized dose optimization techniques were used for this CT. COMPARISON: None. FINDINGS: Normal bilateral parotid glands. Normal bilateral story analyst spaces. Normal bilateral parapharyngeal spaces. Normal bilateral carotid spaces. Normal bilateral sublingual and submandibular glands and spaces. Normal visualized nasopharynx. Normal retropharyngeal space. Normal perivertebral space. Normal visualized bilateral faucial tonsils. The visualized tongue, tongue base and oropharynx are normal. There are multiple subcentimeter jugular chain lymph nodes measuring between 5 and 9 mm. There is no demonstrated solid or cystic mass lesion. There is no abnormal contrast enhancement. No airway narrowing or deviation Normal epiglottis, bilateral vallecula and hypopharynx. The pre-epiglottic and paraglottic adipose spaces are normal. Normal visualized bilateral piriform sinuses, aryepiglottic folds, vocal cords, and arytenoid-cricoid articulations. Normal subglottic trachea. Thyroid gland is enlarged with multiple low-density nodules suggesting goiter. Normal visualized pulmonary apices. Normal visualized paranasal sinuses. Normal visualized cervical spine. CT/Soft Tissue Neck WITH Contrast IMPRESSION: Enlargement of the thyroid gland with low-density nodule suggesting goiter. No suspicious enhancing lesion, airway narrowing or deviation. Scattered subcentimeter jugular chain lymph nodes Normal salivary glands. Electronically Signed: Corby Aparicio MD at 21:21 EDT , Service support ,
[2018-05-13] MEDS: Ipratropium/Albuterol Sulfate 3 ML AMPUL.NEB INHALATION (20:48)
[2018-05-13 20:51] VITALS: PULSE 94; RESP 18
[2018-05-13] MEDS: DiphenhydrAMINE 50 MG/ML Syringe 25 MG IV (20:51)
[2018-05-13] MEDS: 0.9% Normal Saline 1,000 ML 1000 ML IV (20:51)
[2018-05-13] MEDS: Metoclopramide 10 MG/2 ML Vial IV (20:51)
[2018-05-13] MEDS: Ketorolac 30 MG/ML Syringe IV (20:55)
[2018-05-13 22:01] VITALS: BP 101/78; PULSE 95; RESP 18; O2SAT 100
--- NOTE | 2018-05-13 22:46 | ED.DCSUM_ITS ---
- ER Visit Summary Date of Service: 05/13/18 Chief Complaint: Neck pain History of Present Illness: The patient is a 33 F with a 5-day history of right upper neck pain, right jaw pain, right ear pain. She has had congestion and cough. She is now complaining of migraine. Physical Examination: Vital signs are unremarkable. Head neck examination reveals no external sign of trauma. No facial edema or erythema. TMs are clear bilaterally. Patient is edentulous. No significant gum edema is noted. No significant submental fullness. I do not appreciate any significant lymphadenopathy in her neck. Heart is regular rate and rhythm. On lung sounds with expiratory wheezes. Abdomen is soft nontender. Neuro exam is normal. Test Results: CT neck with contrast reveals enlargement of the thyroid gland with low-density nodule suggesting a goiter. No suspicious enhancing lesion is noted. Jugular lymph node chain is slightly enlarged. Emergency Department Course and Treatment: Patient treated Toradol, Reglan, Benadryl, and IV fluids. She did get a DuoNeb treatment. On repeat evaluation patient is sleeping comfortably. She easily awakens and states her headache is significantly improved. I believe she likely has lymphadenopathy secondary to viral URI. She will continue Tylenol or ibuprofen at home. I did discuss the CT findings of her thyroid and she will follow with her primary care physician for an ultrasound. Treatment Plan: [] Disposition: Discharge Impression: 1. Migraine, improved 2. Viral URI This note was generated with [employer] dictation software. It may contain incorrect words, spelling, and punctuation that were not noted in review of the chart prior to signing ED Disposition - Plan for ED Patient: Chief Complaint: Other, Pain/Inj Referrals: Jose Nieves Chi, MD [Primary Care Provider] -
--- NOTE | 2018-05-13 22:46 | ED.DEP ---
ED Disposition - Plan for ED Patient: Disposition: Home or Assisted Living Chief Complaint: Other, Pain/Inj Instructions: ED Headache Migraine, ED URI Viral Referrals: Jose Nieves Chi, MD [Primary Care Provider] - 1 Week
[2018-05-13 22:58] VITALS: BP 96/56; PULSE 98; RESP 18; O2SAT 96
--- NOTE | 2018-05-13 23:01 | ED.RN ---
DR. PANCHAL MADE AWARE OF DISCHARGE BP OF 95/56 AND IS OK WITH DISCHARGE. PATIENT ISNT HAVING ANY SYMPTOMS.
== END 2018-05-13 23:02 | disposition home or self-care (01) ==
PROVIDERS: Emergency Provider Emergency Medicine; Family Provider Family Medicine Geriatric Medicine; PCP Family Medicine Geriatric Medicine
DX: G43.909 Migraine, unspecified, not intractable, without status migrainosus (principal); J06.9 Acute upper respiratory infection, unspecified; J44.9 Chronic obstructive pulmonary disease, unspecified; E66.9 Obesity, unspecified; Z68.42 Body mass index [BMI] 45.0-49.9, adult; Z72.0 Tobacco use
CPT/HCPCS: 70491; 94640; 96361; 96374; 96375; 99283; J7030; A4216

== ENCOUNTER → 2018-06-04 20:19 | Outpatient (CLI) | payer MEDICAID, SELFPAY | PROVIDERS: Family Provider Family Medicine Geriatric Medicine; PCP Family Medicine Geriatric Medicine; Referring Provider Nurse Practitioner Acute Care; Visit Provider Nurse Practitioner Acute Care | DX: G47.33 Obstructive sleep apnea (adult) (pediatric) (principal); R68.83 Chills (without fever) | CPT/HCPCS: 87633; 95811 ==

== ENCOUNTER 2018-06-19 18:19 | Emergency (ER) | payer MEDICAID, SELFPAY ==
[2018-06-19 18:21] VITALS: BP 122/78; PULSE 102; RESP 19; TEMP 36.1; O2SAT 99; BMI 47.6
[2018-06-19] MEDS: HYDROcodone Bitartrate/Apap 5/325 Tablet PO (20:00)
--- NOTE | 2018-06-19 20:00 | RAD_ITS ---
STUDY: X-RAY - LUMBAR SPINE REASON FOR EXAM: Female, 33 years old. Trauma, low back pain TECHNIQUE: 3 view(s) of the lumbar spine were obtained. COMPARISON: None FINDINGS: Normal lumbar lordosis. There is no substantial scoliosis. There is a normal alignment of the vertebrae. Normal vertebral bodies and endplates. Normal disc space heights. The soft tissue structures are unremarkable. RAD/Lumbar Spine 2 or 3 Views IMPRESSION: Normal x-ray examination of the lumbar spine. Electronically Signed: Tod Zamarripa MD at 20:42 EST , Service support ,
--- NOTE | 2018-06-19 21:15 | ED.VISSUMM ---
- ER Visit Summary Date of Service: 06/19/18 Chief Complaint: Right knee pain, low back pain and left lower extremity numbness status post fall History of Present Illness: The patient is a 33 F who presents after fall. She states she landed on her knee. She struck her head against the vehicle. She denies headache, nausea, vomiting or loss of conscious. She denies neck pain. She complains of numbness the entire left lower extremity. She complains of severe back pain. She denies bowel bladder dysfunction. She does complain of knee pain. She states she landed on her knee then struck her head against the vehicle. She denies any cardiac or respiratory symptoms. Please read written note for complete detail Physical Examination: Vital signs noted and blood pressure is slightly elevated 122/78. Head is atraumatic normocephalic. Pupils are equal round reactive. Extraocular muscles are intact. TMs are pearly white with landmarks noted. Nares patent with no drainage. Posterior pharynx without erythema or exudate. Uvula is midline. There is no dysphonia or dysphasia. Trachea is midline. There is no stridor with auscultation of the neck. There is no clinical findings of basal skull fracture. C-spine was cleared per Nexus criteria. Heart is regular without murmur, gallop or rub. S1 and S2 are normal. Lungs are clear to auscultation with good movement of air bilaterally. Pelvis is nontender. Patient has pain palpation on the left side of the back and midline. Patella and ankle reflex are 1-2+ symmetric. Patient complains of numbness in a stocking glove distribution from the groin to her toes. She also complains of weakness. Negative Babinski sign bilaterally and no clonus. DP and PT pulses are palpable. Straight leg test is negative. Examination of the right knee reveals full range of motion with extension to 180 degrees and flexion to 90 degrees. Patella is not ballotable. There is no effusion. There is no laxity with varus or valgus stress testing. There is no pain palpation the popliteal fossa. There is no pain palpation along the joint line. Test Results: Three-view x-ray of the lumbar spine was obtained because of central pain and no other values noted. Emergency Department Course and Treatment: She was treated with one [place] pill/tablet. Treatment Plan: Anti-inflammatories rest ice and follow-up with PCP Disposition: Discharged home in stable condition Impression: 1. Injury secondary to mechanical fall initial encounter 2. Contusion head initial encounter 3. Contusion right knee initial encounter 4. Low back strain secondary to fall initial encounter 5. Paresthesia left lower extremity unknown etiology This note was generated with [employer] dictation software. It may contain incorrect words, spelling, and punctuation that were not noted in review of the chart prior to signing ED Disposition - Plan for ED Patient: Disposition: Home or Assisted Living Chief Complaint: Back Instructions: ED Neck Back Pain General, ED Contusion Scalp, ED Contusion Lower Ext Prescriptions: Naproxen [Naprosyn] 500 mg PO BID #10 tablet Referrals: Jose Nieves Chi, MD [Primary Care Provider] - 1 Week if not improving Additional Instructions: Apply ice to areas of discomfort the next 2-3 days 20-30 minutes at a time 6-8 times a day. You may feel worse over the next 24 hours. Your prescriptions were electronically transmitted to [facility].
== END 2018-06-19 21:31 | disposition home or self-care (01) ==
PROVIDERS: Emergency Provider Emergency Medicine; Family Provider Family Medicine Geriatric Medicine; PCP Family Medicine Geriatric Medicine
DX: S00.93XA Contusion of unspecified part of head, initial encounter (principal); S80.01XA Contusion of right knee, initial encounter; S39.012A Strain of muscle, fascia and tendon of lower back, initial encounter; R20.2 Paresthesia of skin; E66.9 Obesity, unspecified; Z79.51 Long term (current) use of inhaled steroids; Z79.899 Other long term (current) drug therapy; W18.30XA Fall on same level, unspecified, initial encounter; Y93.89 Activity, other specified; Y92.89 Other specified places as the place of occurrence of the external cause; Y99.8 Other external cause status
CPT/HCPCS: 72100; 99283

== ENCOUNTER → 2018-07-09 16:11 | Outpatient (CLI) | payer MEDICAID, SELFPAY ==
[2018-07-09 16:11] VITALS: BMI 48.0
--- OUTSIDE RECORDS SUMMARY | 2018-08-21 14:46 | XMS RPT_ITS ---
:1985 Author Organization OHIP Support Name Relationship Address Phone DOUGIE BUSTAMANTE Unavailable [address] + [place] [address] LIGHT, CAMILLE Unavailable [address] + [place] [address] UE Unavailable Unavailable Unavailable ROBBYDOUGIE Unavailable [address] + [place] [address] LIGHT, CAMILLE Unavailable [address] + [place] [address] UE Unavailable Unavailable Unavailable DOUGIE BUSTAMANTE Unavailable [address] + [place] [address] LIGHT, CAMILLE Unavailable [address] + [place] [address] UE Unavailable Unavailable Unavailable ROBBY DOUGIE Unavailable [address] + [place] [address] LIGHT, CAMILLE Unavailable [address] + [place] [address] UE Unavailable Unavailable Unavailable ROBBY DOUGIE Unavailable [address] + [place] [address] LIGHT, CAMILLE Unavailable [address] + [place] [address] UE Unavailable Unavailable Unavailable DOUGIE BUSTAMANTE Unavailable [address] + [place] [address] LIGHT, CAMILLE Unavailable [address] + [place] [address] UE Unavailable Unavailable Unavailable DOUGIE BUSTAMANTE Unavailable [address] + [place] [address] LIGHT, CAMILLE Unavailable [address] + [place] [address] UE Unavailable Unavailable Unavailable ROBBY DOUGIE Unavailable [address] + [place] [address] LIGHT, CAMILLE Unavailable [address] + [place] [address] UE Unavailable Unavailable Unavailable ROBBYDOUGIE Unavailable [address] + [place] [address] LIGHT, CAMILLE Unavailable [address] + [place] [address] UE Unavailable Unavailable Unavailable ROBBY DOUGIE Unavailable [address] + [place] [address] LIGHT, CAMILLE Unavailable [address] + [place] [address] UE Unavailable Unavailable Unavailable DOUGIE BUSTAMANTE Unavailable [address] + [place] [address] LIGHT, CAMILLE Unavailable [address] + [place] [address] UE Unavailable Unavailable Unavailable ROBBY DOUGIE Unavailable [address] + [place] [address] LIGHT, CAMILLE Unavailable [address] + [place] [address] UE Unavailable Unavailable Unavailable ROBBY DOUGIE Unavailable [address] + [place] [address] LIGHT, CAMILLE Unavailable [address] + [place] [address] UE Unavailable Unavailable Unavailable DOUGIE BUSTAMANTE Unavailable [address] + [place] [address] LIGHT, CAMILLE Unavailable [address] + [place] [address] UE Unavailable Unavailable Unavailable ROBBY DOUGIE Unavailable [address] + [place] [address] LIGHT, CAMILLE Unavailable [address] + [place] [address] UE Unavailable Unavailable Unavailable DOUGIE BUSTAMANTE Unavailable [address] + [place] [address] LIGHT, CAMILLE Unavailable [address] + [place] [address] UE Unavailable Unavailable Unavailable DOUGIE BUSTAMANTE Unavailable [address] + [place] [address] LIGHT, CAMILLE Unavailable [address] + [place] [address] UE Unavailable Unavailable Unavailable DOUGIE BUSTAMANTE Unavailable [address] + [place] [address] LIGHT, CAMILLE Unavailable [address] + [place] [address] UE Unavailable Unavailable Unavailable DOUGIE BUSTAMANTE Unavailable [address] + [place] [address] UE Unavailable Unavailable Unavailable DOUGIE BUSTAMANTE Unavailable [address] + [place] [address] UE Unavailable Unavailable Unavailable DOUGIE BUSTAMANTE Unavailable [address] + [place] [address] UE Unavailable Unavailable Unavailable DOUGIE BUSTAMANTE Unavailable [address] + [place] [address] UE Unavailable Unavailable Unavailable DOUGIE BUSTAMANTE Unavailable [address] + [place] [address] UE Unavailable Unavailable Unavailable DOUGIE BUSTAMANTE Unavailable [address] + [place] [address] UE Unavailable Unavailable Unavailable DOUGIE BUSTAMANTE Unavailable [address] + [place] [address] UE Unavailable Unavailable Unavailable DOUGIE BUSTAMANTE Unavailable [address] + [place] [address] UE Unavailable Unavailable Unavailable DOUGIE BUSTAMANTE Unavailable [address] + [place] [address] UE Unavailable Unavailable Unavailable DOUGIE BUSTAMANTE Unavailable [address] + [place] [address] DOUGIE BUSTAMANTE Unavailable [address] + [place] [address] DOUGIE BUSTAMANTE Unavailable [address] + [place] [address] UE Unavailable Unavailable Unavailable DOUGIE BUSTAMANTE Unavailable [address] + [place] [address] UE Unavailable Unavailable Unavailable DOUGIE BUSTAMANTE Unavailable [address] + [place] [address] UE Unavailable Unavailable Unavailable DOUGIE BUSTAMANTE Unavailable [address] + [place] [address] UE Unavailable Unavailable Unavailable DOUGIE BUSTAMANTE Unavailable [address] + [place] [address] UE Unavailable Unavailable Unavailable DOUGIE BUSTAMANTE Unavailable [address] + [place] [address] UE Unavailable Unavailable Unavailable DOUGIE BUSTAMANTE Unavailable [address] + [place] [address] DOUGIE BUSTAMANTE Unavailable [address] + [place] [address] DOUGIE BUSTAMANTE Unavailable [address] + [place] [address] UE Unavailable Unavailable Unavailable DOUGIE BUSTAMANTE Unavailable [address] + [place] [address] DOUGIE BUSTAMANTE Unavailable [address] + [place] [address] DOUGIE BUSTAMANTE Unavailable [address] + [place] [address] UE Unavailable Unavailable Unavailable DOUGIE BUSTAMANTE Unavailable [address] + [place] [address] DOUGIE BUSTAMANTE Unavailable [address] + [place] [address] DOUGIE BUSTAMANTE Unavailable [address] + [place] [address] UE Unavailable Unavailable Unavailable DOUGIE BUSTAMANTE Unavailable [address] + [place] [address] UE Unavailable Unavailable Unavailable DOUGIE BUSTAMANTE Unavailable [address] + [place] [address] UE Unavailable Unavailable Unavailable DOUGIE BUSTAMANTE Unavailable [address] + [place] [address] UE Unavailable Unavailable Unavailable DOUGIE BUSTAMANTE Unavailable [address] + [place] [address] UE Unavailable Unavailable Unavailable DOUGIE BUSTAMANTE Unavailable [address] + [place] [address] UE Unavailable Unavailable Unavailable DOUGIE BUSTAMANTE Unavailable [address] + [place] [address] UE Unavailable Unavailable Unavailable DOUGIE BUSTAMANTE Unavailable [address] + [place] [address] UE Unavailable Unavailable Unavailable DOUGIE BUSTAMANTE Unavailable [address] + [place] [address] BUSTAMANTE, DOUGIE Unavailable [address] + [place] [address] DOUGIE BUSTAMANTE Unavailable [address] + [place] [address] UE Unavailable Unavailable Unavailable DOUGIE BUSTAMANTE Unavailable [address] + [place] [address] UE Unavailable Unavailable Unavailable Care Team Providers Name Role Phone Malou CHOUDHARY, Kirstin Kowalski Attending Unavailable PHYSICIAN, NONE Primary Care Unavailable DR. RAFAL ROBLES DO Attending Unavailable PHYSICIAN, NONE Primary Care Unavailable KRANTHI BURNETT MD Attending Unavailable CHERRI PATIÑO MD Primary Care Unavailable SUSAN LOPEZ MD Attending Unavailable CHERRI PATIÑO MD Primary Care Unavailable Kirstin Westfall MD Attending Unavailable CHERRI PATIÑO MD Primary Care Unavailable Dawson Jolley Attending Unavailable Dawson Jolley Attending Unavailable Dawson Jolley Attending Unavailable No Family Physician given Primary Care Unavailable Vanessa Tolbert PA-C Attending Unavailable Oleghe, Efewongbe Referring Unavailable Oleghe, Efewongbe Primary Care Unavailable Brenda Pascual Attending Unavailable Oleghe, Efewongbe Primary Care Unavailable Brenda Pascual Referring Unavailable Oleghe, Efewongbe Primary Care Unavailable Jaclyn Rizo Attending Unavailable Oleghe, Efewongbe Primary Care Unavailable Yina Owen Attending Unavailable Oleghe, Efewongbe Primary Care Unavailable Romeo Morton Attending Unavailable Oleghe, Efewongbe Primary Care Unavailable Kalie Montgomery Attending Unavailable Oleghe, Efewongbe Primary Care Unavailable Nirmal Chandra Attending Unavailable Blaine Gage [employer] Attending Unavailable Oleghe, Efewongbe Referring Unavailable Oleghe, Efewongbe Primary Care Unavailable Blaine Gage NP-C Attending Unavailable Oleghe, Efewongbe Primary Care Unavailable Blaine Gage [employer] Attending Unavailable GageBlaine [employer] Referring Unavailable Oleghe, Efewongbe Primary Care Unavailable Oleghe, Efewongbe Primary Care Unavailable Romeo Morton Attending Unavailable Oleghe, Efewongbe Attending Unavailable Oleghe, Efewongbe Referring Unavailable Oleghe, Efewongbe Primary Care Unavailable Veronika Lea Attending Unavailable Blaine Gage [employer] Attending Unavailable Oleghe, Efewongbe Referring Unavailable Oleghe, Efewongbe Primary Care Unavailable GageBlaine [employer] Attending Unavailable Oleghe, Efewongbe Referring Unavailable Oleghe, Efewongbe Primary Care Unavailable Oleghe, Efewongbe Primary Care Unavailable Nirmal Chandra Attending Unavailable Oleghe, Efewongbe Primary Care Unavailable Jaclyn Rizo Attending Unavailable Oleghe, Efewongbe Primary Care Unavailable TANISHA MC Consulting Unavailable TANISHA MC Referring Unavailable TANISHA MC Attending Unavailable Oleghe, Efewongbe Primary Care Unavailable Giovanni Feldman Attending Unavailable Oleghe, Efewongbe Primary Care Unavailable RONEN VINSON Attending Unavailable Oleghe, Efewongbe Primary Care Unavailable Jaclyn Rizo Attending Unavailable Ayla Bates Attending Unavailable GageBlaine [employer] Attending Unavailable Oleghe, Efewongbe Referring Unavailable Oleghe, Efewongbe Primary Care Unavailable Blaine Gage [employer] Attending Unavailable Blaine Gage [employer] Referring Unavailable Oleghe, Efewongbe Primary Care Unavailable Blaine Gage [employer] Attending Unavailable Oleghe, Efewongbe Referring Unavailable Oleghe, Efewongbe Primary Care Unavailable Blaine Gage [employer] Attending Unavailable Oleghe, Efewongbe Referring Unavailable Oleghe, Efewongbe Primary Care Unavailable Blaine Gage [employer] Attending Unavailable Blaine Gage [employer] Referring Unavailable Oleghe, Efewongbe Primary Care Unavailable Oleghe, Efewongbe Primary Care Unavailable Koram, Svitlana Mer Admitting Unavailable Koram, Svitlana Mer Attending Unavailable Koram, Svitlana Mer Admitting Unavailable Koram, Svitlana Mer Attending Unavailable Oleghe, Efewongbe Primary Care Unavailable Koram, Vsitlana Mer Consulting Unavailable Koram, Svitlana Mer Admitting Unavailable Koram, Svitlana Mer Attending Unavailable Oleghe, Efewongbe Primary Care Unavailable Koram, Svitlana Mer Consulting Unavailable Koram, Svitlana Mer Admitting Unavailable Koram, Svitlana Mer Attending Unavailable Oleghe, Efewongbe Primary Care Unavailable Koram, Svitlana Mer Consulting Unavailable Michael Adler D.O. Attending Unavailable Oleghe, Efewongbe Referring Unavailable Oleghe, Efewongbe Primary Care Unavailable Ezequiel, Jose Chi Attending Unavailable Ezequiel, Jose Chi Referring Unavailable Ezequiel, Jose Chi Primary Care Unavailable Ezequiel, Jose Chi Attending Unavailable Ezequiel, Jose Chi Primary Care Unavailable Michael Adler D.O. Attending Unavailable Ezequiel, Jose Chi Primary Care Unavailable Ezequiel, Jose Chi Attending Unavailable Ezequiel, Jose Chi Primary Care Unavailable Michael Adler D.O. Attending Unavailable Michael Adler D.O. Referring Unavailable Ezequiel, Jose Chi Primary Care Unavailable Michael Adler D.O. Attending Unavailable Michael Adler D.O. Referring Unavailable Ezequiel, Jose Chi Primary Care Unavailable Talat Canales Attending Unavailable Koram, Svitlana Mer Referring Unavailable Ezequiel, Jose Chi Primary Care Unavailable Yina Owen Attending Unavailable Mary Kate, Yolie Attending Unavailable Ezequiel, Jose Chi Primary Care Unavailable Hartmann Yolie Referring Unavailable Ezequiel, Jose Chi Consulting Unavailable Ezequiel, Jose Chi Primary Care Unavailable Nirmal Chandra Attending Unavailable Ezequiel, Jose Chi Attending Unavailable Ezequiel, Jose Chi Referring Unavailable Ezequiel, Jose Chi Primary Care Unavailable Ezequiel, Jose Chi Attending Unavailable Ezequiel, Jose Chi Primary Care Unavailable Oleghe, Efewongbe Primary Care Unavailable Romeo Morton Attending Unavailable PROBLEMS PROBLEMS DATE TYPE CONDITION / CODE ATTENDING STATUS SOURCE 07/09/2018 Unknown R68.83 - Chills Ezequiel, Jose Chi Active [facility] (without fever) / Community R68.83(ICD-10) Hospital Repository 06/04/2018 Unknown G47.33 - Hartmann, Active [place] Obstructive sleep [facility] Community apnea (adult) Hospital (pediatric) / Repository G47.33(ICD-10) 04/25/2018 Unknown D64.9 - Anemia, Ezequiel, Jose Chi Active [facility] unspecified / Community D64.9(ICD-10) Hospital Repository 04/17/2018 Unknown J45.909 - Michael Adler, Active [place] Unspecified asthma, D.O. Community uncomplicated / Hospital J45.909(ICD-10) Repository 04/17/2018 Unknown F17.210 - Nicotine Michael Adler, Active [place] dependence, D.O. Community cigarettes, Hospital uncomplicated / Repository F17.210(ICD-10) 04/17/2018 Unknown G47.19 - Other Michael Adler, Active [facility] hypersomnia / D.O. Community G47.19(ICD-10) Hospital Repository 05/11/2018 Unknown R06.02 - Shortness MoodispaTalat cotton Active [place] of breath / Community R06.02(ICD-10) Hospital Repository 04/10/2018 Unknown R05 - Cough / Gage, Blaine Active [place] R05(ICD-10) [employer] Counts Include [facility] Hospital Repository 03/13/2018 Unknown S63.502A - Southern, Active [place] Unspecified sprain [facility] Community of left wrist, Hospital initial encounter / Repository S63.502A(ICD-10) 06/28/2018 Unknown M79.604 - Pain in TANISHA MC Active [facility] right leg / Community M79.604(ICD-10) Hospital Repository 01/31/2018 Unknown R06.01 - Orthopnea Blaine Gage Active [facility] / R06.01(ICD-10) [employer] Counts Include [facility] Hospital Repository 01/31/2018 Unknown R60.0 - Localized GageBlaine Active [place] edema / [employer] Community R60.0(ICD-10) Hospital Repository 01/31/2018 Unknown M25.40 - Effusion, Gage, Blaine Active [place] unspecified joint / [employer] Community M25.40(ICD-10) Hospital Repository 10/06/2017 Unknown R06.00 - Dyspnea, Gage, Blaine Active [place] unspecified / [employer] Community R06.00(ICD-10) Hospital Repository 10/05/2017 Admitting Unknown / Dawson Jolley [facility] Repository 09/26/2017 Unknown J18.9 - Pneumonia, Valentina, Kalie Active [facility] unspecified Community organism / Hospital J18.9(ICD-10) Repository 08/23/2017 Unknown M54.9 - Dorsalgia, Basali, Ayman Active [facility] unspecified / Community M54.9(ICD-10) Hospital Repository 08/23/2017 Unknown M79.606 - Pain in Brenda Pascual Active [facility] leg, unspecified / Community M79.606(ICD-10) Hospital Repository PROCEDURES PROCEDURES No Procedure Records FoundRESULTS RESULTS CBC W/DIFF, AUTOMATED Collected: 07/19/2018 Status: F Source: [place] 1:54 PM [facility] REPOSITORY TYPE CODE TESTS RESULT OUT OF RANGE REFERENCE UNITS LAB L100.1000 4.4-11.0 K/mm3 High WBC 14.0 LAB L100.1200 4.2-5.4 M/mm3 Normal RBC 4.44 LAB L100.1300 12.0-15.0 g/dl Low HGB 9.5 LAB L100.1400 37-47 % Low HCT 31.7 LAB L100.1500 81-99 fL Low MCV 71.4 LAB L100.1600 27.0-32.0 pg Low MCH 21.4 LAB L100.1700 32-36 g/gl Low MCHC 30.0 LAB L100.1810 11.6-14.6 % High RDW CV 21.1 LAB L100.1820 35.1-43.9 fl High RDW SD 52.6 LAB L100.1900 150-450 K/mm3 Normal PLT 360 LAB L100.2000 6.2-12.0 fl Normal MPV 11.0 LAB L100.2100 47-70 % High NEUT% 73.1 LAB L100.2200 19-41 % Normal LY% 19.1 LAB L100.2300 0-10 % Normal MONO% 5.1 LAB L100.2400 0-5 % Normal EO% 2.0 LAB L100.2500 0-1 % Normal BASO% 0.2 LAB L100.2550 0.0-0.9 % Normal IM GRAN % 0.500 Result Comment: IG% - Immature Granulocytes (promyelocytes, myelocytes and metamyelocytes) > 1% indicates that a LEFT SHIFT is Present. LAB L100.2620 2.0-7.7 X10 3/uL Absolute Neut High 10.2 LAB L100.2720 0.83-4.51 X10 3/ul Absolute Lymph Normal 2.67 LAB L100.4800 TOXIC GRAN Normal RARE LAB L100.5500 ADEQ PLT EST Normal ADEQUATE LAB L100.7300 ANISO Normal 1+ LAB L100.7500 POLYCHROMASIA Normal RARE LAB L100.7600 HYPOCHROMASIA Normal 2+ LAB L100.7700 MICROCYTES Normal 1+ LAB L100.8600 TARGET CELLS Normal RARE Performed By: #### L100.0100 #### [facility] [address] [place], [address] COMPREHENSIVE METABOLIC Collected: 07/19/2018 Status: F Source: [place] 1:54 PM [facility] REPOSITORY TYPE CODE TESTS RESULT OUT OF RANGE REFERENCE UNITS LAB L501.0100 74-106 mg/dL Normal GLU 96 Result Comment: Please note revised GLUCOSE reference range effective 2017. LAB L501.1000 7-18 mg/dL Normal BUN 7 LAB L501.1100 0.55-1.02 mg/dL Normal CREAT,SERUM 0.55 Result Comment: The validity of the calculated GFR AND GFRAA in patients over 70 years has not been determined. Clinical correlation is essential. LAB L501.1110 >60 mL/min Normal EST GFR 138 Result Comment: Non- GFR Calc LAB L501.1115 >60 mL/min Normal EST GFR - AA 166 Result Comment: GFR Calc LAB L501.1300 10-20 RATIO Normal BUN/CRE 12.8 LAB L501.1500 6.4-8.2 g/dL T Normal PROT 7.1 LAB L501.1800 3.2-5.0 g/dL Low ALB 3.0 LAB L501.1950 2.2-4.2 g/dL Normal GLOB 4.1 LAB L501.2000 0.9-2.4 RATIO Low A/G 0.7 LAB L501.2200 8.5-10.1 mg/dL CA Normal 8.7 LAB L501.4100 15-37 U/L Low AST 9 LAB L501.4305 45-117 U/L Normal ALK P 95 LAB L501.4405 13-56 U/L Normal ALT 21 LAB L501.4600 0.20-1.00 mg/dL T Normal BILI 0.20 LAB L501.5300 136-145 mmol/L NA Normal 141 LAB L501.5600 3.5-5.1 mmol/L K Normal 4.2 LAB L501.5900 98-107 mmol/L CL Normal 106 LAB L501.6100 21.0-32.0 mmol/L Normal CO2 28.0 LAB L501.6200 5-15 Normal GAP 7 Performed By: #### L500.4050, L501.9520 #### [facility] [address] [place], [address] THYROID STIM HORMONE Collected: 07/19/2018 Status: F Source: [place] ([facility]) 1:54 PM [facility] REPOSITORY TYPE CODE TESTS RESULT OUT OF RANGE REFERENCE UNITS LAB L501.9520 0.358-3.74 uIU/mL High TSH 8.01 Performed By: #### L500.4050, L501.9520 #### [facility] [place], [address] Observed: 07/09/2018 Status: F Source: [place] RESPIRATORY PANEL 4:17 PM [facility] MOLECULAR REPOSITORY RP PANEL ADENOVIRUS Not Detected HUMAN METAPHNEUMO Not Detected INFLUENZA A Not Detected INFLUENZA A (SUBTYPE H1) Not Detected INFLUENZA A (SUBTYPE H3) Not Detected INFLUENZA B Not Detected PARAINFLUENZA 1 Not Detected PARAINFLUENZA 2 Not Detected PARAINFLUENZA 3 Not Detected PARAINFLUENZA 4 Not Detected RHINOVIRUS Not Detected RSV A Not Detected RSV B Not Detected NAAT METHOD Testing was performed using nucleic acid amplification Performed By: #### M100.638 #### [facility] [address] [place] [address], [address] EMERGENCY DEPARTMENT Observed: 06/19/2018 Status: F Source: [place] SUMMARY 9:20 PM [facility] REPOSITORY [facility] Medical Records Department [address] [place] [id number] Emergency Department Summary 06/19/18 2115 MR#: [id number] Acct: [id number] Name: NEGRITO BUSTAMANTE Rep #: [id number] : 1985 33 From: Nirmal Chandra MD PCP: Ezequiel CHOUDHARY,Jose Geiger Status: REG ER - ER Visit Summary Date of Service: 06/19/18 Chief Complaint: Right knee pain, low back pain and left lower extremity numbness status post fall History of Present Illness: The patient is a 33 F who presents after fall. She states she landed on her knee. She struck her head against the vehicle. She denies headache, nausea, vomiting or loss of conscious. She denies neck pain. She complains of numbness the entire left lower extremity. She complains of severe back pain. She denies bowel bladder dysfunction. She does complain of knee pain. She states she landed on her knee then struck her head against the vehicle. She denies any cardiac or respiratory symptoms. Please read written note for complete detail Physical Examination: Vital signs noted and blood pressure is slightly elevated 122/78. Head is atraumatic normocephalic. Pupils are equal round reactive. Extraocular muscles are intact. TMs are pearly white with landmarks noted. Nares patent with no drainage. Posterior pharynx without erythema or exudate. Uvula is midline. There is no dysphonia or dysphasia. Trachea is midline. There is no stridor with auscultation of the neck. There is no clinical findings of basal skull fracture. C-spine was cleared per Nexus criteria. Heart is regular without murmur, gallop or rub. S1 and S2 are normal. Lungs are clear to auscultation with good movement of air bilaterally. Pelvis is nontender. Patient has pain palpation on the left side of the back and midline. Patella and ankle reflex are 1-2+ symmetric. Patient complains of numbness in a stocking glove distribution from the groin to her toes. She also complains of weakness. Negative Babinski sign bilaterally and no clonus. DP and PT pulses are palpable. Straight leg test is negative. Examination of the right knee reveals full range of motion with extension to 180 degrees and flexion to 90 degrees. Patella is not ballotable. There is no effusion. There is no laxity with varus or valgus stress testing. There is no pain palpation the popliteal fossa. There is no pain palpation along the joint line. Test Results: Three-view x-ray of the lumbar spine was obtained because of central pain and no other values noted. Emergency Department Course and Treatment: She was treated with one [place] pill/tablet. Treatment Plan: Anti-inflammatories rest ice and follow-up with PCP Disposition: Discharged home in stable condition Impression: 1. Injury secondary to mechanical fall initial encounter 2. Contusion head initial encounter 3. Contusion right knee initial encounter 4. Low back strain secondary to fall initial encounter 5. Paresthesia left lower extremity unknown etiology This note was generated with [employer] dictation software. It may contain incorrect words, spelling, and punctuation that were not noted in review of the chart prior to signing ED Disposition - Plan for ED Patient: Disposition: Home or Assisted Living Chief Complaint: Back Instructions: ED Neck Back Pain General, ED Contusion Scalp, ED Contusion Lower Ext Prescriptions: Naproxen [Naprosyn] 500 mg PO BID #10 tablet Referrals: Jose Nieves Chi, MD [Primary Care Provider] - 1 Week if not improving Additional Instructions: Apply ice to areas of discomfort the next 2-3 days 20-30 minutes at a time 6-8 times a day. You may feel worse over the next 24 hours. Your prescriptions were electronically transmitted to [facility]. What to do if you have Problems For any increased pain, shortness of breath, bleeding, nausea or vomiting, chest pain, or any unexpected problems, contact your Primary Care Provider. Call [facility] ([phone]) or report to the closest Emergency Room. Call 911 if necessary. 06/19/182119 <Electronically signed by Nirmal Chandra MD> Date Nirmal Chandra MD Cosigner Signature (If Indicated): Date CC: Jose Nieves MD LUMBAR SPINE 2 OR 3 Observed: 06/19/2018 Status: F Source: [place] VIEWS 7:58 PM [facility] REPOSITORY [facility] Imaging Services [address] [place] [address] Lumbar Spine 2 or 3 Views MR#: [id number] Acct: [id number] Name: NEGRITO BUSTAMANTE Romana Rep #: [id number] : 1985 F 33 From: Tod Zamarripa MD PCP: Jose Nieves MD, Chi Status: REG ER Study: Lumbar Spine 2 or 3 Views Date of Exam: 06/19/18 Exam# [id number] Ordering Dr: Nirmal Chandra MD STUDY: X-RAY - LUMBAR SPINE REASON FOR EXAM: Female, 33 years old. Trauma, low back pain TECHNIQUE: 3 view(s) of the lumbar spine were obtained. COMPARISON: None FINDINGS: Normal lumbar lordosis. There is no substantial scoliosis. There is a normal alignment of the vertebrae. Normal vertebral bodies and endplates. Normal disc space heights. The soft tissue structures are unremarkable. RAD/Lumbar Spine 2 or 3 Views IMPRESSION: Normal x-ray examination of the lumbar spine. Electronically Signed: Tod Zamarripa MD at 20:42 EST , Service support , CC: Jose Nieves MD; Nirmal Chandra MD Form Worker: Signed Observed: 06/04/2018 Status: F Source: [place] RESPIRATORY PANEL 3:45 PM [facility] MOLECULAR REPOSITORY RP PANEL Normal Reference Range = Not Detected RESULTS CALLED TO WILLIAN/ 06/05/18 0908 Karla Cornejo. Copy of report sent to Infection Control Printer MS#[id number] 06/05/18 0909 CHASIDYNNMAXI. ADENOVIRUS Not Detected HUMAN METAPHNEUMO Not Detected INFLUENZA A Not Detected INFLUENZA A (SUBTYPE H1) Not Detected INFLUENZA A (SUBTYPE H3) Not Detected INFLUENZA B Not Detected PARAINFLUENZA 1 Not Detected PARAINFLUENZA 2 Not Detected PARAINFLUENZA 3 Not Detected PARAINFLUENZA 4 Not Detected RHINOVIRUS Positive for RHINOVIRUS by NAAT technology RSV A Not Detected RSV B Not Detected NAAT METHOD Testing was performed using nucleic acid amplification ORGANISM 1: RHINOVIRUS Performed By: #### M100.638 #### [facility] [place], [address] EMERGENCY DEPARTMENT Observed: 05/14/2018 Status: F Source: [place] SUMMARY 12:21 AM [facility] Medical Records Department [address] [place] [address] Emergency Department Summary 05/13/18 2244 MR#: [id number] Acct: [id number] Name: NEGRITO BUSTAMANTE Rep #: [id number] : 1985 33 From: Yina Owen MD PCP: Jose Nieves MD, Chi Status: DEP ER - ER Visit Summary Date of Service: 05/13/18 Chief Complaint: Neck pain History of Present Illness: The patient is a 33 F with a 5- day history of right upper neck pain, right jaw pain, right ear pain. She has had congestion and cough. She is now complaining of migraine. Physical Examination: Vital signs are unremarkable. Head neck examination reveals no external sign of trauma. No facial edema or erythema. TMs are clear bilaterally. Patient is edentulous. No significant gum edema is noted. No significant submental fullness. I do not appreciate any significant lymphadenopathy in her neck. Heart is regular rate and rhythm. On lung sounds with expiratory wheezes. Abdomen is soft nontender. Neuro exam is normal. Test Results: CT neck with contrast reveals enlargement of the thyroid gland with low-density nodule suggesting a goiter. No suspicious enhancing lesion is noted. Jugular lymph node chain is slightly enlarged. Emergency Department Course and Treatment: Patient treated Toradol, Reglan, Benadryl, and IV fluids. She did get a DuoNeb treatment. On repeat evaluation patient is sleeping comfortably. She easily awakens and states her headache is significantly improved. I believe she likely has lymphadenopathy secondary to viral URI. She will continue Tylenol or ibuprofen at home. I did discuss the CT findings of her thyroid and she will follow with her primary care physician for an ultrasound. Treatment Plan: [] Disposition: Discharge Impression: 1. Migraine, improved 2. Viral URI This note was generated with Our[employer] dictation software. It may contain incorrect words, spelling, and punctuation that were not noted in review of the chart prior to signing ED Disposition - Plan for ED Patient: Chief Complaint: Other, Pain/Inj Referrals: Jose Nieves Chi, MD [Primary Care Provider] - What to do if you have Problems For any increased pain, shortness of breath, bleeding, nausea or vomiting, chest pain, or any unexpected problems, contact your Primary Care Provider. Call [facility] ([phone]) or report to the closest Emergency Room. Call 911 if necessary. 05/14/18 0021 <Electronically signed by Yina Owen MD> Date Yina Owen MD Cosigner Signature (If Indicated): Date CC: Jose Nieves MD DISCHARGE INSTRUCTION Observed: 05/13/2018 Status: F Source: [place] 10:47 PM [facility] Medical Records Department [address] [place] [address] Discharge Instruction 05/13/182245 MR#: [id number] Acct: [id number] Name: NEGRITO BUSTAMANTE Rep #: [id number] : 1985 33 From: Yina Owen MD PCP: Jose Nieves MD, Chi Status: REG ER ED Disposition - Plan for ED Patient: Disposition: Home or Assisted Living Chief Complaint: Other, Pain/Inj Instructions: ED Headache Migraine, ED URI Viral Referrals: Jose Nieves Chi, MD [Primary Care Provider] - 1 Week What to do if you have Problems For any increased pain, shortness of breath, bleeding, nausea or vomiting, chest pain, or any unexpected problems, contact your Primary Care Provider. Call [facility] ([phone]) or report to the closest Emergency Room. Call 911 if necessary. 05/13/182246 <Electronically signed by Yina Owen MD> Date Yina Owen MD Cosigner Signature (If Indicated): Date CC: Jose Nieves MD SOFT TISSUE NECK WITH Observed: 05/13/2018 Status: F Source: [place] CONTRAST 8:34 PM [facility] Imaging Services [address] [place] [address] Soft Tissue Neck WITH Contrast MR#: [id number] Acct: [id number] Name: NEGRTIO BUSTAMANTE Rep #: [id number] : 1985 F 33 From: Chencho Aparicio MD PCP: Jose Nieves MD, Chi Status: REG ER Study: Soft Tissue Neck WITH Contrast Date of Exam: 05/13/18 Exam# [id number] Ordering Dr: Yina Owen MD STUDY: CT SOFT TISSUE NECK WITH CONTRAST REASON FOR EXAM: Female, 33 years old. Right-sided jaw and neck swelling x5 days RADIATION DOSAGE (If Supplied By Facility): CTDIvol = ( 24.09 ) mGy, DLP = ( 733.81 ) mGycm TECHNIQUE: The patient was scanned in a multi-detector CT scanner. High resolution transaxial imaging was performed following intravenous administration of 75ML ml of Isovue 370 contrast material. Sagittal and coronal images were reconstructed. Individualized dose optimization techniques were used for this CT. COMPARISON: None. FINDINGS: Normal bilateral parotid glands. Normal bilateral microstrategy bi developer spaces. Normal bilateral parapharyngeal spaces. Normal bilateral carotid spaces. Normal bilateral sublingual and submandibular glands and spaces. Normal visualized nasopharynx. Normal retropharyngeal space. Normal perivertebral space. Normal visualized bilateral faucial tonsils. The visualized tongue, tongue base and oropharynx are normal. There are multiple subcentimeter jugular chain lymph nodes measuring between 5 and 9 mm. There is no demonstrated solid or cystic mass lesion. There is no abnormal contrast enhancement. No airway narrowing or deviation Normal epiglottis, bilateral vallecula and hypopharynx. The pre-epiglottic and paraglottic adipose spaces are normal. Normal visualized bilateral piriform sinuses, aryepiglottic folds, vocal cords, and arytenoid-cricoid articulations. Normal subglottic trachea. Thyroid gland is enlarged with multiple low-density nodules suggesting goiter. Normal visualized pulmonary apices. Normal visualized paranasal sinuses. Normal visualized cervical spine. CT/Soft Tissue Neck WITH Contrast IMPRESSION: Enlargement of the thyroid gland with low-density nodule suggesting goiter. No suspicious enhancing lesion, airway narrowing or deviation. Scattered subcentimeter jugular chain lymph nodes Normal salivary glands. Electronically Signed: Corby Aparicio MD at 21:21 EDT , Service support , CC: Yina Owen MD; Jose Nieves MD Form Worker: Signed HH, HEMOGLOBIN AND Collected: 04/25/2018 Status: F Source: [place] HEMATOCRIT 4:01 PM [facility] REPOSITORY TYPE CODE TESTS RESULT OUT OF RANGE REFERENCE UNITS LAB L100.1300 12.0-15.0 g/dl Low HGB 10.0 LAB L100.1400 37-47 % Low HCT 32.9 Performed By: #### L100.0600 #### [facility] [place], [address] COMPREHENSIVE METABOLIC Collected: 04/19/2018 Status: F Source: [place] PROFIL 4:05 PM [facility] REPOSITORY Order Comment: 'TROP' Serial specimen #1, #2, #3, or #4: 1 TYPE CODE TESTS RESULT OUT OF RANGE REFERENCE UNITS LAB L501.0100 74-106 mg/dL Normal GLU 84 Result Comment: Please note revised GLUCOSE reference range effective 2017. LAB L501.1000 7-18 mg/dL Low BUN 4 LAB L501.1100 0.55-1.02 mg/dL Low CREAT,SERUM 0.52 Result Comment: The validity of the calculated GFR AND GFRAA in patients over 70 years has not been determined. Clinical correlation is essential. LAB L501.1110 >60 mL/min Normal EST GFR 147 Result Comment: Non- GFR Calc LAB L501.1115 >60 mL/min Normal EST GFR - AA 178 Result Comment: GFR Calc LAB L501.1300 10-20 RATIO Low BUN/CRE 7.7 LAB L501.1500 6.4-8.2 g/dL Normal T PROT 6.8 LAB L501.1800 3.2-5.0 g/dL Low ALB 2.9 LAB L501.1950 2.2-4.2 g/dL Normal GLOB 3.9 LAB L501.2000 0.9-2.4 RATIO Low A/G 0.7 LAB L501.2200 8.5-10.1 mg/dL Low CA 8.4 LAB L501.4100 15-37 U/L Normal AST 15 LAB L501.4305 45-117 U/L Normal ALK P 100 LAB L501.4405 13-56 U/L Normal ALT 29 LAB L501.4600 0.20-1.00 mg/dL Normal T BILI 0.40 LAB L501.5300 136-145 mmol/L Normal NA 140 LAB L501.5600 3.5-5.1 mmol/L Normal K 4.3 LAB L501.5900 98-107 mmol/L Normal CL 105 LAB L501.6100 21.0-32.0 mmol/L Normal CO2 25.0 LAB L501.6200 5-15 Normal GAP 10 Performed By: #### L500.4050, L501.3620, L501.4010, L501.9520 #### [facility] [address] [place], [place], [address] CPK TOTAL, CREATINE Collected: 04/19/2018 Status: F Source: [place] KINASE 4:05 PM [facility] RE[facility]IT[facility] Order Comment: 'TROP' Serial specimen #1, #2, #3, or #4: 1 TYPE CODE TESTS RESULT OUT OF RANGE REFERENCE UNITS LAB L501.3620 26-192 U/L Normal CPK TOTAL 74 Performed By: #### L500.4050, L501.3620, L501.4010, L501.9520 #### [facility] [address] [place], [address] TROPONIN-I Collected: 04/19/2018 Status: F Source: NO[place] 4:05 PM [facility] Order Comment: 'TROP' Serial specimen #1, #2, #3, or #4: 1 TYPE CODE TESTS RESULT OUT OF RANGE REFERENCE UNITS LAB L501.4010 <0.045 ng/mL Normal < 0.015 TROPONIN-I Result Comment: TROPONIN-I EXPECTED VALUES <0.045 Negative 0.045 - 0.590 Consistent with Cardiac Damage > OR = 0.600 Critical Value Not every elevated troponin is indicative of UT. These values should be used with clinical judgement in examining the patient's clinical picture for diagnosis. To establish a diagnosis of UT versus myocardial injury, there must be a demonstrated rise and/or fall in the troponin values, in addition to ischemic symptoms, EKG changes, new regional wall motion abnormality, and/or angiographical evidence. PLEASE NOTE: REFERENCE RANGES EDITED 17 Performed By: #### L500.4050, L501.3620, L501.4010, L501.9520 #### [facility] [address] [place], [address] THYROID STIM HORMONE Collected: 04/19/2018 Status: F Source: [place] (TSH) 4:05 PM [facility] Order Comment: 'TROP' Serial specimen #1, #2, #3, or #4: 1 TYPE CODE TESTS RESULT OUT OF RANGE REFERENCE UNITS LAB L501.9520 0.358-3.74 uIU/mL High TSH 9.96 Performed By: #### L500.4050, L501.3620, L501.4010, L501.9520 #### [facility] [address] [place], [address] BNP,B-TYPE NATRIURETIC Collected: 04/19/2018 Status: F Source: [place] PEPTIDE 4:05 PM [facility] TYPE CODE TESTS RESULT OUT OF RANGE REFERENCE UNITS LAB L503.6620 0-100 pg/mL Normal B-TYPE 4.1 SANTOS PEP Performed By: #### L503.6620 #### [facility] [address] [place], [address] D-DIMER QUANTITATIVE Collected: 04/19/2018 Status: F Source: [place] (DVT/PE) 4:05 PM [facility] TYPE CODE TESTS RESULT OUT OF RANGE REFERENCE UNITS LAB L300.8000 0.27-0.49 FEU/ug/m Low D-DIMER < 0.27 QUANT Result Comment: NORMAL D-Dimer level (<0.50) indicates no DVT or PE. Performed By: #### L300.8000 #### [facility] [address] [place], [address] CBC W/DIFF, AUTOMATED Collected: 04/19/2018 Status: F Source: [place] 4:05 PM [facility] TYPE CODE TESTS RESULT OUT OF RANGE REFERENCE UNITS LAB L100.1000 4.4-11.0 K/mm3 High WBC 16.4 LAB L100.1200 4.2-5.4 M/mm3 Normal RBC 4.31 LAB L100.1300 12.0-15.0 g/dl Low HGB 9.7 LAB L100.1400 37-47 % Low HCT 31.6 LAB L100.1500 81-99 fL Low MCV 73.3 LAB L100.1600 27.0-32.0 pg Low MCH 22.5 LAB L100.1700 32-36 g/gl Low MCHC 30.7 LAB L100.1810 11.6-14.6 % High RDW CV 21.3 LAB L100.1820 35.1-43.9 fl High RDW SD 54.6 LAB L100.1900 150-450 K/mm3 Normal PLT 386 LAB L100.2000 6.2-12.0 fl Normal MPV 10.8 LAB L100.2100 47-70 % Normal NEUT% 68.2 LAB L100.2200 19-41 % Normal LY% 22.1 LAB L100.2300 0-10 % Normal MONO% 6.4 LAB L100.2400 0-5 % Normal EO% 2.5 LAB L100.2500 0-1 % Normal BASO% 0.1 LAB L100.2550 0.0-0.9 % Normal IM GRAN % 0.700 Result Comment: IG% - Immature Granulocytes (promyelocytes, myelocytes and metamyelocytes) > 1% indicates that a LEFT SHIFT is Present. LAB L100.2620 2.0-7.7 X10 3/uL Absolute Neut High 11.2 LAB L100.2720 0.83-4.51 X10 3/ul Absolute Lymph Normal 3.63 LAB L100.5500 ADEQ PLT EST Normal ADEQUATE LAB L100.7300 ANISO Normal 1+ LAB L100.7600 HYPOCHROMASIA Normal 1+ LAB L100.7700 MICROCYTES Normal 1+ LAB L100.8200 OVALOCYTE Normal RARE LAB L100.8600 TARGET CELLS Normal RARE Performed By: #### L100.0100 #### [facility] [address] [facility] [place], [place], [id number] MYOGLOBIN, SERUM Collected: 04/19/2018 Status: F Source: [place] 4:05 PM [facility] TYPE CODE TESTS RESULT OUT OF RANGE REFERENCE UNITS LAB L3600.5100 25-58 ng/mL Normal 51 Myoglobin, Ser Result Comment: Performed at: [address] [id number] Dental Technologist: Benoit Rios PhD, Phone: [phone] Performed By: #### L3600.5100 #### [facility] (refer to report for specific site) refer to report for address and phone number Observed: 04/19/2018 Status: F Source: [place] BORDATELLA PANEL 12:00 AM [facility]LE[facility]ULAR REPOSITORY BORDATELL PANEL B PERTUSSIS Not Detected B PARAPERTUSSIS BRONCHISE Not Detected B HOLMESII Not Detected NAAT METHOD Testing was performed using nucleic acid amplification Performed By: #### M100.629 #### [facility] [address] [place] [address]. [place], [place], [id number] PULMONARY VISIT REPORT Observed: 04/17/2018 Status: F Source: [place] 10:25 AM [facility] [address] [place] [address] OFFICE VISIT Date of Service: 04/17/18 MR#: [id number] Acct: [id number] Name: NEGRITO BUSTAMANTE Rep #: [id number] : 1985 Provider: Michael Adler D.O. Age/Sex: 33/F Location: [facility] Status: Signed Assessment AND Plan 1. Asthma J45.909 Plan The patient has a self-reported history of asthma, diagnosed in childhood. She was recently admitted to the hospital and treated for an asthma exacerbation secondary to rhinovirus upper respiratory infection. She is slowly improving clinically. At the current time, she is utilizing her rescue inhaler multiple times daily. Therefore, I recommended that she be initiated on a combination LABA/ICS. Patient was provided with samples of Symbicort and instructions on its use. She has also been advised to continue the use of her rescue inhaler every 6 hours as needed. In the interim, we will plan to proceed with obtaining baseline pulmonary function testing along with a 6 minute walk test to assess for any exertional hypoxemia. Orders Orders: 2. Nicotine dependence, cigarettes, uncomplicated F17.210 Plan The patient has an extensive smoking history. I personally spent 5 minutes discussing the deleterious effects of ongoing tobacco use with the patient, including modalities which could be utilized to achieve a smoke-free lifestyle. She is pre- contemplative at this time. This issue will need to be followed up upon at her follow-up office visit. Orders Orders: 3. Daytime hypersomnolence G47.19 Plan The patient's symptoms of daytime hypersomnolence, nonrestorative sleep and audible snoring are certainly concerning for underlying obstructive sleep apnea. We will plan to proceed with obtaining a diagnostic polysomnogram in evaluation for underlying sleep disordered breathing. If positive, the patient will be referred to undergo a titration study with a subsequent initiation of nocturnal PAP therapy. Orders Orders: 4. Obesity E66.9 Plan Weight loss through dietary modification and a graded exercise regimen is strongly encouraged. Plan Detail Follow Up 6 Weeks (CSM) HPI HPI Comments Details: The patient is a 33-year-old female who presents to the clinic today in follow-up from a recent hospitalization. The patient has a reported history of asthma and nicotine dependence. She was admitted to the hospital on April 10 with complaints of shortness of breath. She was noted to be hypoxic on arrival to the emergency department. The patient's respiratory viral panel was positive for rhinovirus. She was treated symptomatically for viral tracheobronchitis. The patient was discharged home on April 12 with a prednisone taper and instructions to follow-up with us for potential sleep study over concerns for obstructive sleep apnea. The patient does report that she has been improving clinically since being discharged from the hospital. She still has a residual cough. 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 At the present time, she is utilizing her Ventolin rescue inhaler every 6 hours. She does report the presence of chest tightness and wheezing, along with a persistent nonproductive cough. She has a smoking history that includes 2 packs per day 13 years. However, in the recent weeks, she has cut back to smoking 1 pack of cigarettes daily. She is currently unemployed due to sciatic back pain issues. Her weight has been stable. She has never undergone formal pulmonary function testing previously. The patient reports that she sleeps on average 6 hours per night. She has been told by friends and family that she does snore when sleeping. She reports the presence of daytime hypersomnolence and nonrestorative sleep. She does quite frequently take naps. She denies fevers, chills or night sweats. She denies chest pain, dizziness or lightheadedness. Intake Vital Signs04/17/18 Height 5 ft 10 in 04/17/18 Weight: 355 lb Intake Visit Reasons: hospital f/u Chief Complaint: Viral Bronchitis Accompanied by: Self Allergies ceftriaxone sodium [From Rocephin] Allergy (Verified 04/17/18 06:43) Hives tramadol Allergy (Verified 04/17/18 06:43) Hives bupropion HCl [From Wellbutrin] Adverse Reaction (Verified 04/17/18 06:43) MAKES ANXIETY WORSE Medications albuterol sulfate HFA 90 mcg/actuation aerosol inhaler 1 - 2 puff INHALATION Q6H PRN PRN #1 inhaler 03/27/18 [Rx Confirmed 04/17/18] Gabapentin [Neurontin] 100 mg PO QHS 04/10/18 [History Confirmed 04/17/18] codeine 10 mg-guaifenesin 100 mg/5 mL oral liquid See Label Instructions PO Q6H PRN #120 ml 04/10/18 [Rx Confirmed 04/17/18] Prednisone 40 mg PO DAILY #10 tab 04/12/18 [Rx Confirmed 04/17/18] PFSH Medical History Obesity (Chronic) Chronic low back pain (Chronic) Kidney stones (Chronic) Anxiety (Chronic) Anemia (Acute) Panic attacks (Acute) Bipolar depression manic phase (Chronic) COPD (chronic obstructive pulmonary disease) (Chronic) Hydocephalus (Chronic) Surgical History D AND C (Acute) History of 3 sections (Acute) History of bilateral tubal ligation (Acute) History of cholecystectomy (Acute) History of tonsillectomy (Acute) left ankle ligament repair (Acute) Family History Grandmother Asthma Thyroid disorder Mother Asthma Thyroid disorder COPD (chronic obstructive pulmonary disease) Aunt Asthma Heart disease Hypertension Thyroid disorder Emphysema, unspecified Grandfather Asthma Diabetes Hypertension Hyperlipidemia COPD (chronic obstructive pulmonary disease) Social History Smoking Status: Current every day smoker second hand exposure: Yes alcohol intake: never substance use type: does not use caffeine: No what type of physical activity do you participate in: walking frequency: daily Review of Systems Const CONSTITUTIONAL: Positive chills, daytime sleepiness and fatigue; negative anorexia, body ache, fever(s), night sweats, oral thrush, stops breathing during sleep, weight loss, sleeping in chair, weight loss, weight gain, frequent colds, seasonal allergies, other, headache(s) or orthopnea EETM Ear Nose Throat Mouth: Positive hearing normal, hoarseness and sore throat; negative hard of hearing, dry mouth in morning, change in vision, itchy eyes, eye pain, swallowing Difficulty, ear pain, nose bleed, headache(s), mouth pain, nasal congestion, nasal discharge, post nasal drip, sinus pain, sinus pressure or other Cardio Cardiovascular: Negative chest pain, chest pain at rest, chest pain with activity, irregular heart rhythm, edema, shortness of breath when lying down, palpitations, murmur or other Resp Respiratory: Positive as per HPI, shortness of breath shortness of breath: Positive with activity, wheezing, cough cough: Positive productive color: Positive white and chest tightness; negative pain with cough, chest congestion, pain on inspiration, inhalers, increase use of rescue inhalers, snoring, apnea or other Gastro Gastrointestional: Negative bloody stools, change in appetite, difficulty swallowing, reflux, hematemesis, melena stool, loose stool, constipation or other Genitourinary: Negative blood in urine, nocturia, pain with urination or other Musc Musculoskeletal: Negative body pain, back pain, neck pain or other Skin/Breast Skin/Breast: Negative dry skin, itching, rash, unusual bruising, breast lump or other Neuro Neurological: Negative restless legs, confusion, weakness or other Psych Psychocological: Positive abnormal sleep pattern; negative anxiety, thoughts of hurting self/others, hopelessness or other Lymph Lymphatic: Negative easy bleeding, easy bruising, swollen lymph nodes or other Exam Const Constitutional: Positive conversant, cooperative, in no acute respiratory distress, well developed, well nourished, smells of smoke and obese Head Head: Positive normocephalic and atraumatic; negative cyanosis of lips/distal nose Eyes Eye: Positive clear conjunctiva; negative nystagmus or scleral abnormality Ears Ear: Positive hearing normal and external ears normal; negative hard of hearing Nose Nose: Positive external nose normal; negative epistaxis Mouth Mouth: Positive oral mucosae normal and no lesions; negative post nasal drip Mallampati Score: III: Mallampati Score Neck Neck: Positive normal visual inspection, trachea midline and thick neck; negative lymphadenopathy Chest Wall Chest: Positive symmetric chest movement Normal AP diameter. Resp lung sounds: Positive diminished diminished: Positive global; negative wheezes, rhonchi or rales Frequent paroxysms of coughing Cardio Cardiac: Positive regular rate, regular rhythm, S1 normal and S2 normal; negative murmur, rub or gallop GI GI: Positive normal bowel sounds and obese Soft without distention Genitourinary: Positive deferred Musc Musculoskeletal: Positive steady gait Skin Pulmonary Skin Exam: Positive intact; negative rash or lesion Pulses Pulse: Yes Pedal pulses present: Extremities Extremities: No clubbing, No cyanosis, No edema Neuro Neurologic: Yes conversant, Yes no focal neuro deficits, Yes cooperative Lymph Lymphatic: No lymphadenopathy Psych Appearance: Positive grossly normal Mental Status: Positive mental status grossly normal Mood: Positive congruent mood Affect: Positive normal affect Pulmonary Procedure Smoking Cessation Education: Yes education provided, 3-10 minutes and needs reinforcement Coding Level of Care Code Off vis,new,level 5 Diagnoses Asthma J45.909 Nicotine dependence, cigarettes, uncomplicated F17.210 Daytime hypersomnolence G47.19 Obesity E66.9 Obesity type: unspecified obesity type Body mass index: BMI 45.0-49.9 04/17/18 1025 <Electronically signed by Michael Adler DO> Date Michael Adler DO Cosigner Signature: Date (if applicable) CC: Cherri Patiño MD 12 LEAD ELECTROCARDIOGRAM Observed: 04/13/2018 Status: F Source: [place] 1:37 PM [facility] Cardiovascular Services [address] [place] [address] 12 Lead EKG 04/11/18 0809 MR#: [id number] Acct: [id number] Name: NEGRITO BUSTAMANTE Rep #: [id number] : 1985 33 From: Talat Canales MD Attending Dr: Svitlana Chicas MD Status: DIS IN Ordering Dr: Svitlana Chicas MD Date: 04/11/18 Location: [facility] [facility] C Admitted: 04/10/18 Test Reason : CP Blood Pressure : / mmHG Vent. Rate : 080 BPM Atrial Rate : 080 BPM P-R Int : 134 ms QRS Dur : 090 ms QT Int : 376 ms P-R-T Axes : 024 018 022 degrees QTc Int : 433 ms Normal sinus rhythm with sinus arrhythmia Normal ECG Confirmed by JOCELIN CHOUDHARY, TALAT ([id number]), department editor SUBHA VILA ([id number]) on 04/13/2018 1:37:07 PM Referred By: Blaine Gage Confirmed By:TALAT CANALES MD 04/13/18 1337 Date Talat Canales MD CC: Cherri Patiño MD; Svitlana Chicas MD Signed DISCHARGE SUMMARY Observed: 04/12/2018 Status: F Source: [place] 9:59 AM [facility] [place] [facility] Medical Records Department [address] [place] [address] Discharge Summary 04/12/18 0946 MR#: [id number] Acct: [id number] Name: NEGRITO BUSTAMANTE Rep #: [id number] : 1985 33 From: Svitlana Chicas MD PCP: Cherri Patiño MD Status: ADM IN Y [id number] Dis[facility] Date and Diagnosis - Problem List Patient Problems: Active and Suspected Problems (Last Reviewed 04/10/18 @ 09:05 by Ayla Bates) Shortness of breath (Acute) Date of Admission: 04/10/18 Date of Discharge: 04/12/18 - Primary Discharge Diagnosis Active and Suspected Problems (Last Reviewed 04/10/18 @ 09:05 by Ayla Bates) Shortness of breath (Acute) viral URTI - Secondary Discharge Diagnosis Chronic Problems (Last Reviewed 04/10/18 @ 09:05 by Ayla Bates) Migraines (Chronic) Depression (Chronic) Obesity (Chronic) Chronic low back pain (Chronic) Kidney stones (Chronic) Anxiety (Chronic) Hospital Course and Treatment Imaging Results: Diagnostic Data Chest X-Ray 04/10/18 16:01 IMPRESSION: Possible minimal increased density in the right middle lobe which could be some minimal atelectasis or scarring. Electronically Signed: Alejandro Parra MD at 16:27 EDT , Service support , Laboratory Tests WBC 10.3 13.0 H WBC 19.9 H RBC 4.38 Hgb 9.8 L Hct 32.2 L MCV 73.5 L MCH 22.4 L MCHC 30.4 L RDW 21.3 H RDW Differential 55.9 H Microbiology 04/10/18 17:37 Mucosa - Nasopharyngeal Respiratory Panel (PCR) - Final Rhinovirus Operations: cholecystecomy Procedures: None Summary of Care Provided: The patient is a 33 year old F with past medical history of asthma and nicotine dependence. She was admitted via the ED on 04/10/2018 with a four-day history of shortness of breath with associated wheezing and fever and chills. He has started 10 days prior to admission with echo which was initially nonproductive and subsequently became productive of clear sputum. She went to her PCP and was given a prescription for Z-Joyd. This did not help with her symptoms and shortness of breath and cough persisted and worsened with assisted fever and chills which are not improving. She also had decreased appetite, nausea vomiting and generalized malaise. She came into the ED which was noted to be tachycardic with pulse of 102 and respiratory rate of 18 and she was saturating at 87% on room air. She desaturated down to 87 after she dozed off after being given medication to help calm her down and sleep. She had been told that she needed to be tested for sleep apnea she snores heavily at home. Chest x-ray done showed possible minimal increased density in the right lobe which could be due to minimal atelectasis or scarring. She was admitted and managed for viral bronchitis. She was started on breathing treatments and IV Solu-Medrol. She had no elevated white cell count and respiratory panel done was positive for rhinovirus. Influenza screen was negative. Patient remained on oxygen but this was eventually titrated down to 1 L as she remained stable and was saturating above 92%. Patient improved significantly and wheezing resolved. Cough persisted but was nonproductive and improved relative to time she came in. Patient was discharged home on 04/12/2018 with a prescription for prednisone 40 mg daily for 5 days. She was also referred to pulmonology for a sleep study to be assessed for ZANA/OSH. She was counseled to stop smoking and to be compliant with her inhalers. She is to follow-up with her primary care doctor in 1 week with pulmonology in 1-2 weeks. Patient seen and examined prior to discharge. She had no complaints and felt well. Shortness of breath had improved significantly. She denied any fever chills, any chest pain, shortness of breath, any abdominal pain, any diarrhea vomiting. She was on 1 L at time of review. Patient was taken off oxygen and ambulated and saturated at 96% with ambulation on room air. o/e: Vitals: Vital Signs Height 5 ft 10 in Weight: 334 lb 7.06 oz Weight in Pounds 334.4 lbs Pulse Ox 97 [] General: Alert, Oriented x3, Cooperative, No apparent distress HEENT: Atraumatic, PERRLA, EOMI, Normocephalic Oral: Moist Mucosa Neck: Supple, No JVD, Negative Carotid Bruits Lungs: - - clear to auscultation bilaterally, no wheezing or rhonchi. Cardiovascular: Regular rate, Regular Rhythm, Normal S1, Normal S2, No murmurs Abdomen: Bowel Sounds Present, Soft, Non Tender, Non-Distended, No Hepato-splenomegaly Extremities: No clubbing, No cyanosis, No edema, Capillary Refill Less than 3 Seconds Skin: No rashes, No breakdown Musculoskeletal: No Tenderness to Palpation of Joints or Extremities Lymphatic: No Cervical, Supraclavicular, or Inguinal Adenopathy Neurological: Cranial nerves II-XII grossly intact, Motor Exam 5/5 strength throughout Psych/Mental Status: Normal Affect, Appropriate, Alert and oriented to time, place, person, mood and affect Plan as stated above. Discharge Diet: 2000 mg Sodium Diet Discharge Activity: Return to Normal Activity Weight Bearing Status: Weight bearing as tolerated Call your doctor if you observe: Fever of 101 or Higher, Shortness of breath Home Medications: Medications to take at Discharge albuterol sulfate HFA 90 mcg/actuation aerosol inhaler 1 - 2 puff INHALATION Q6H PRN PRN #1 inhaler 03/27/18 Gabapentin [Neurontin] 100 mg PO QHS 04/10/18 codeine 10 mg-guaifenesin 100 mg/5 mL oral liquid See Label Instructions PO Q6H PRN #120 ml 04/10/18 ondansetron 4 mg disintegrating tablet 4 mg PO TID PRN 5 Days #30 tab 04/10/18 Prednisone 40 mg PO DAILY #10 tab 04/12/18 Following Prescrptions Were Given to Patient: Prednisone 40 mg PO DAILY #10 tab Primary Care Physician: Cherri Patiño MD [Primary Care Provider] - Please follow up with your Primary Care Physician in: 1-2 weeks Please Follow Up With: To Hernandez MD When: 1-2 weeks to be worked up for ZANA/OSH with sleep study Disposition: Home Minutes spent on discharge:: 35 Patient Condition:: Stable Medical Necessity - Tobacco Use Smoking Status: Current every day smoker Tobacco Use: Cigarettes Meaningful Use Info Meaningful Use Diagnoses (Choose all that apply): None applicable Code Visit Inpatient E AND M: 22058 Disch Hosp 04/12/18 0959 <Electronically signed by Svitlana Chicas MD> Date Svitlana Chicas MD Cosigner Signature (if applicable): Date CC: hCerri Patiño MD; Svitlana Chicas MD Signed DISCHARGE INSTRUCTION Observed: 04/12/2018 Status: F Source: [place] 9:46 AM [facility] [place] [facility] Medical Records Department [address] [place] [address] Instructions for Home/Discharge Instructions 04/12/18 0944 MR#: [id number] Acct: [id number] Name: NEGRITO BUSTAMANTE Romana Rep #: [id number] : 1985 33 From: Svitlana Chicas MD PCP: Cherri Patiño MD Status: ADM IN - Discharge Diagnoses Current Active Problems: Current Active and Chronic Problems (Last Reviewed 04/10/18 @ 09:05 by Ayla Bates) Shortness of breath (Acute) You will use the following diet at home:: Cardiac Your food should be the consistency of: Regular Your liquids should be the consistency of: Regular/Thin Discharge Activity: Return to Normal Activity Weight Bearing Status: Weight bearing as tolerated Call your doctor if you observe: Fever of 101 or Higher, Shortness of breath Additional Instructions: please follow up with pulmonology to be scheduled for sleep study. Counselled strongly to stop smoking and exercise and adhere to DASH diet to lose weight. Allergies/Adverse Reactions: Allergies ceftriaxone sodium [From Rocephin] Allergy (Verified 04/04/18 11:08) Hives tramadol Allergy (Verified 04/04/18 11:08) Hives bupropion HCl [From Wellbutrin] Adverse Reaction (Verified 04/04/18 11:08) MAKES ANXIETY WORSE Medications to take at Discharge albuterol sulfate HFA 90 mcg/actuation aerosol inhaler 1 - 2 puff INHALATION Q6H PRN PRN #1 inhaler 03/27/18 Gabapentin [Neurontin] 100 mg PO QHS 04/10/18 codeine 10 mg-guaifenesin 100 mg/5 mL oral liquid See Label Instructions PO Q6H PRN #120 ml 04/10/18 ondansetron 4 mg disintegrating tablet 4 mg PO TID PRN 5 Days #30 tab 04/10/18 Prednisone 40 mg PO DAILY #10 tab 04/12/18 The following prescriptions were given: Prednisone 40 mg PO DAILY #10 tab Primary Care Physician: Cherri Patiño MD [Primary Care Provider] - Please follow up with your Primary Care Physician in: 1-2 weeks Test Results: Test results from this visit will be discussed in further detail at your follow-up appointment, if applicable. Please Follow Up With: To Hernandez MD When: 1-2 weeks to be worked up for ZANA/OSH with sleep study Proposed Discharge Date: 04/12/18 04/12/18 0946 <Electronically signed by Svitlana Chicas MD> Date Svitlana Chicas MD CC: Cherri Patiño MD BASIC METABOLIC Collected: 04/12/2018 Status: F Source: [place] PROFILE (BMP) 5:35 AM [facility] [place] [facility] TYPE CODE TESTS RESULT OUT OF RANGE REFERENCE UNITS LAB L501.0100 74-106 mg/dL High GLU 134 Result Comment: Fasting Glucose result greater than or equal to 126 mg/dL suggests DIABETES MELLITUS per A.D.A. criteria. Please note revised GLUCOSE reference range effective 2017. LAB L501.1000 7-18 mg/dL Normal BUN 9 LAB L501.1100 0.55-1.02 mg/dL Low CREAT,SERUM 0.50 Result Comment: The validity of the calculated GFR AND GFRAA in patients over 70 years has not been determined. Clinical correlation is essential. LAB L501.1110 >60 mL/min Normal EST GFR 154 Result Comment: Non- GFR Calc LAB L501.1115 >60 mL/min Normal EST GFR - AA 186 Result Comment: GFR Calc LAB L501.1255 ml/min Normal Estimated CRCL 176.29 LAB L501.1300 10-20 RATIO BUN/CRE Normal 18.1 LAB L501.2200 8.5-10 mg/dL .1 CA Normal 8.6 LAB L501.5300 136-14 mmol/L 5 NA Normal 143 LAB L501.5600 3.5-5. mmol/L 1 K Normal 4.3 LAB L501.5900 98-107 mmol/L High CL 111 LAB L501.6100 21.0-3 mmol/L 2.0 CO2 Normal 24.0 LAB L501.6200 5-15 GAP Normal 8 Performed By: #### L500.2500 #### [facility] [address] [place], [address] CBC W/DIFF, AUTOMATED Collected: 04/12/2018 Status: F Source: [place] 5:35 AM [facility] [place] [facility] TYPE CODE TESTS RESULT OUT OF RANGE REFERENCE UNITS LAB L100.1000 4.4-11.0 K/mm3 High WBC 19.9 LAB L100.1200 4.2-5.4 M/mm3 Normal RBC 4.38 LAB L100.1300 12.0-15.0 g/dl Low HGB 9.8 LAB L100.1400 37-47 % Low HCT 32.2 LAB L100.1500 81-99 fL Low MCV 73.5 LAB L100.1600 27.0-32.0 pg Low MCH 22.4 LAB L100.1700 32-36 g/gl Low MCHC 30.4 LAB L100.1810 11.6-14.6 % High RDW CV 21.3 LAB L100.1820 35.1-43.9 fl High RDW SD 55.9 LAB L100.1900 150-450 K/mm3 Normal PLT 302 LAB L100.2000 6.2-12.0 fl Normal MPV 10.4 LAB L100.2100 47-70 % High NEUT% 89.5 LAB L100.2200 19-41 % Low LY% 6.4 LAB L100.2300 0-10 % Normal MONO% 3.6 LAB L100.2400 0-5 % Normal EO% 0.0 LAB L100.2500 0-1 % Normal BASO% 0.1 LAB L100.2550 0.0-0.9 % Normal IM GRAN % 0.400 Result Comment: IG% - Immature Granulocytes (promyelocytes, myelocytes and metamyelocytes) > 1% indicates that a LEFT SHIFT is Present. LAB L100.2620 2.0-7.7 X10 3/uL Absolute Neut High 17.8 LAB L100.2720 0.83-4.51 X10 3/ul Absolute Lymph Normal 1.28 LAB L100.4500 SMEAR COMMENT Normal SCAN LAB L100.7300 ANISO Normal 1+ LAB L100.7500 POLYCHROMASIA Normal 1+ LAB L100.7600 HYPOCHROMASIA Normal 1+ LAB L100.7700 MICROCYTES Normal 1+ Performed By: #### L100.0100 #### [facility] [address] [place], [address] BASIC METABOLIC Collected: 04/11/2018 Status: F Source: [place] PROFILE ([facility]) 5:50 AM [facility] [place] [facility] TYPE CODE TESTS RESULT OUT OF RANGE REFERENCE UNITS LAB L501.0100 74-106 mg/dL High GLU 154 Result Comment: Fasting Glucose result greater than or equal to 126 mg/dL suggests DIABETES MELLITUS per A.D.A. criteria. Please note revised GLUCOSE reference range effective 2017. LAB L501.1000 7-18 mg/dL Normal BUN 8 LAB L501.1100 0.55-1.02 mg/dL Low CREAT,SERUM 0.49 Result Comment: The validity of the calculated GFR AND GFRAA in patients over 70 years has not been determined. Clinical correlation is essential. LAB L501.1110 >60 mL/min Normal EST GFR 155 Result Comment: Non- GFR Calc LAB L501.1115 >60 mL/min Normal EST GFR - AA 188 Result Comment: GFR Calc LAB L501.1255 ml/min Normal Estimated CRCL 179.89 LAB L501.1300 10-20 RATIO BUN/CRE Normal 16.2 LAB L501.2200 8.5-10 mg/dL .1 CA Normal 8.8 LAB L501.5300 136-14 mmol/L 5 NA Normal 140 LAB L501.5600 3.5-5. mmol/L 1 K Normal 4.1 LAB L501.5900 98-107 mmol/L High CL 109 LAB L501.6100 21.0-3 mmol/L 2.0 CO2 Normal 22.0 LAB L501.6200 5-15 GAP Normal 9 Performed By: #### L500.2500 #### [facility] [address] [place], [address] CBC W/DIFF, AUTOMATED Collected: 04/11/2018 Status: F Source: [place] 5:50 AM [facility] [place] [facility] TYPE CODE TESTS RESULT OUT OF RANGE REFERENCE UNITS LAB L100.1000 4.4-11.0 K/mm3 High WBC 13.0 LAB L100.1200 4.2-5.4 M/mm3 Normal RBC 4.48 LAB L100.1300 12.0-15.0 g/dl Low HGB 9.8 LAB L100.1400 37-47 % Low HCT 33.2 LAB L100.1500 81-99 fL Low MCV 74.1 LAB L100.1600 27.0-32.0 pg Low MCH 21.9 LAB L100.1700 32-36 g/gl Low MCHC 29.5 LAB L100.1810 11.6-14.6 % High RDW CV 20.6 LAB L100.1820 35.1-43.9 fl High RDW SD 55.9 LAB L100.1900 150-450 K/mm3 Normal PLT 303 LAB L100.2000 6.2-12.0 fl Normal MPV 10.5 LAB L100.2100 47-70 % High NEUT% 91.3 LAB L100.2200 19-41 % Low LY% 6.8 LAB L100.2300 0-10 % Normal MONO% 1.8 LAB L100.2400 0-5 % Normal EO% 0.0 LAB L100.2500 0-1 % Normal BASO% 0.0 LAB L100.2550 0.0-0.9 % Normal IM GRAN % 0.100 Result Comment: IG% - Immature Granulocytes (promyelocytes, myelocytes and metamyelocytes) > 1% indicates that a LEFT SHIFT is Present. LAB L100.2620 2.0-7.7 X10 3/uL High Absolute Neut 11.9 LAB L100.2720 0.83-4.51 X10 3/ul Normal Absolute Lymph 0.89 LAB L100.4500 Normal SMEAR COMMENT SCANNED Performed By: #### L100.0100 #### [facility] [address] [place], [place], [address] CBC W/DIFF, AUTOMATED Collected: 04/10/2018 Status: F Source: [place] 6:09 PM [facility] [place] [facility] TYPE CODE TESTS RESULT OUT OF RANGE REFERENCE UNITS LAB L100.1000 4.4-11.0 K/mm3 Normal WBC 10.3 LAB L100.1200 4.2-5.4 M/mm3 Normal RBC 4.80 LAB L100.1300 12.0-15.0 g/dl Low HGB 10.4 LAB L100.1400 37-47 % Low HCT 35.4 LAB L100.1500 81-99 fL Low MCV 73.8 LAB L100.1600 27.0-32.0 pg Low MCH 21.7 LAB L100.1700 32-36 g/gl Low MCHC 29.4 LAB L100.1810 11.6-14.6 % High RDW CV 20.3 LAB L100.1820 35.1-43.9 fl High RDW SD 54.9 LAB L100.1900 150-450 K/mm3 Normal PLT 313 LAB L100.2000 6.2-12.0 fl Normal MPV 10.2 LAB L100.2100 47-70 % High NEUT% 92.9 LAB L100.2200 19-41 % Low LY% 6.3 LAB L100.2300 0-10 % Normal MONO% 0.5 LAB L100.2400 0-5 % Normal EO% 0.1 LAB L100.2500 0-1 % Normal BASO% 0.1 LAB L100.2550 0.0-0.9 % Normal IM GRAN % 0.100 Result Comment: IG% - Immature Granulocytes (promyelocytes, myelocytes and metamyelocytes) > 1% indicates that a LEFT SHIFT is Present. LAB L100.2620 2.0-7.7 X10 3/uL Absolute High Neut 9.6 LAB L100.2720 0.83-4.51 X10 3/ul Low Absolute Lymph 0.65 LAB L100.4500 SMEAR Normal COMMENT SCANNED LAB L100.7300 ANISO Normal 1+ LAB L100.7700 Normal MICROCYTES RARE LAB L100.8200 Normal OVALOCYTE RARE Performed By: #### L100.0100 #### [facility] [address] [place], [address] BASIC METABOLIC Collected: 04/10/2018 Status: F Source: [place] PROFILE (BMP) 6:09 PM [facility] [place] TYPE CODE TESTS RESULT OUT OF RANGE REFERENCE UNITS LAB L501.0100 74-106 mg/dL High GLU 112 Result Comment: Fasting Glucose result from 100 to 125 mg/dL suggests IMPAIRED HOMEOSTASIS per A.D.A. criteria. Please note revised GLUCOSE reference range effective 2017. LAB L501.1000 7-18 mg/dL Normal BUN 7 LAB L501.1100 0.55-1.02 mg/dL Low CREAT,SERUM 0.54 Result Comment: The validity of the calculated GFR AND GFRAA in patients over 70 years has not been determined. Clinical correlation is essential. LAB L501.1110 >60 mL/min Normal EST GFR 141 Result Comment: Non- GFR Calc LAB L501.1115 >60 mL/min Normal EST GFR - AA 170 Result Comment: GFR Calc LAB L501.1255 ml/min Normal Estimated CRCL 163.23 LAB L501.1300 10-20 RATIO BUN/CRE Normal 13.0 LAB L501.2200 8.5-10 mg/dL .1 CA Normal 8.8 LAB L501.5300 136-14 mmol/L 5 NA Normal 140 LAB L501.5600 3.5-5. mmol/L 1 K Normal 4.1 LAB L501.5900 98-107 mmol/L High CL 108 LAB L501.6100 21.0-3 mmol/L 2.0 CO2 Normal 23.0 LAB L501.6200 5-15 GAP Normal 9 Performed By: #### L500.2500 #### [facility] [address] [place], [address] HISTORY AND PHYSICAL Observed: 04/10/2018 Status: F Source: [place] EXAM 5:42 PM [facility] [place] Medical Records Department [address] [place] [address] History and Physical 04/10/18 1723 MR#: [id number] Acct: [id number] Name: NEGRITO BUSTAMANTE Rep #: [id number] : 1985 33 From: Svitlana Chicas MD PCP: Cherri Patiño MD Status: ADM LEE Y Location: [place] [address] Problem List (1) Shortness of breath Status: Acute History of Present Illness Date of Admission: 04/10/18 Chief Complaint: Shortness of breath. The patient is a 33 year old F with past medical history of asthma and nicotine dependence. She was admitted via the ED on 04/10/2018 with a complaint of 4 day history of shortness of breath with associated wheezing and fever and chills. According to patient his symptoms started 10 days ago with a cough which was initially nonproductive and became productive of clear sputum. She went to her PCP and was given a prescription for Z-Jody. However this does not help with her symptoms and shortness of breath and cough persisted and worsened. She also had associated fever and chills which is not resolving. She had decreased appetite, nausea, vomiting and generalized malaise. Symptoms were not improving so she decided to come into the ED today. In the ED, was 96.8 Fahrenheit with blood pressure being 125/70 and pulse rate of 102 as well as respiratory rate of 18. Saturation was 87% on room air. She was also noted to desaturate down to about 87 after she was giving some medication to help calm her down and sleep. Patient says she has been told she should be tested for sleep apnea and snores heavily at home. Chest x-ray done showed possible minimal increased density in the right middle lobe which could be some minimal atelectasis or scarring but no effusion. She only has started taking prednisone pack that was prescribed to her by her nurse practitioner. She has continued smoking throughout this experience. She has been admitted to be managed for viral bronchitis. [] Past Medical History Past Medical History (Chronic Problems): Chronic Problems (Last Reviewed 04/10/18 @ 09:05 by Ayla Bates) Migraines (Chronic) Depression (Chronic) Obesity (Chronic) Chronic low back pain (Chronic) Kidney stones (Chronic) Anxiety (Chronic) Medical History: Medical History (Last Reviewed 04/10/18 @ 09:05 by Ayla Bates) Obesity (Chronic) E66.9 Chronic low back pain (Chronic) M54.5, G89.29 Kidney stones (Chronic) N20.0 Anxiety (Chronic) F41.9 Anemia D64.9 Panic attacks F41.0 Bipolar depression manic phase F31.9 COPD (chronic obstructive pulmonary disease) J44.9 Hydocephalus Allergies ceftriaxone sodium [From Rocephin] Allergy (Verified 04/04/18 11:08) Hives tramadol Allergy (Verified 04/04/18 11:08) Hives bupropion HCl [From Wellbutrin] Adverse Reaction (Verified 04/04/18 11:08) MAKES ANXIETY WORSE Home Medications: Ambulatory Orders Medication Instructions Recorded albuterol sulfate HFA 90 1 - 2 puff INHALATION Q6H PRN PRN 03/27/18 Surgical History: Surgical History (Last Reviewed 04/10/18 @ 09:05 by Ayla Bates) D AND C History of 3 sections Z87.59 History of bilateral tubal ligation Z98.51 History of cholecystectomy Z98.890, Z90.49 History of tonsillectomy Z90.89 left ankle ligament repair Surgical History: appendectomy, tonsillectomy Psychiatric History: Anxiety, Depression SETUP TECHNICIAN History: No pertinent SETUP TECHNICIAN history, - Lives: With Family Smoking Status: Current every day smoker Alcohol: None Drugs: None - *Family History Maternal Family History: Family History (Last Reviewed 04/10/18 @ 09:05 by Ayla Bates) Grandmother Asthma Thyroid disorder Mother Asthma Thyroid disorder COPD (chronic obstructive pulmonary disease) Aunt Asthma Heart disease Hypertension Thyroid disorder Emphysema, unspecified Grandfather Asthma Diabetes Hypertension Hyperlipidemia COPD (chronic obstructive pulmonary disease) History Items: COPD, Heart Disease Paternal Family History: Family History (Last Reviewed 04/10/18 @ 09:05 by Ayla Bates) Grandmother Asthma Thyroid disorder Mother Asthma Thyroid disorder COPD (chronic obstructive pulmonary disease) Aunt Asthma Heart disease Hypertension Thyroid disorder Emphysema, unspecified Grandfather Asthma Diabetes Hypertension Hyperlipidemia COPD (chronic obstructive pulmonary disease) History Items: Diabetes Review of Systems Constitutional: Reports: Anorexia, Chills, Fever, Malaise, Weakness, Fatigue Eyes: Denies: Blurred vision HEENT: Denies: Head Aches, Sinus Congestion, Sinus Drainage Cardiovascular: Denies: Chest Pain, Palpitations, Syncope Respiratory: Reports: Cough, Shortness of Breath, Shortness of breath at rest, Shortness of breath upon exertion, Sputum production, Wheezing Gastrointestinal: Reports: Diarrhea, Nausea, Vomiting. Denies: Abdominal Pain Genitourinary: Denies: Dysuria Musculoskeletal: Denies: Joint Pain, Joint Tenderness Skin: Denies: Rash, Wounds Neurological: Denies: Numbness, Tingling, Focal weakness Psychiatric: Denies: Anxiety, Depression, Homicidal Ideations, Suicidal Ideations Hematologic/ Lymphatic: Denies: Easy Bruising, Easy Bleeding VTE Information - Inpt Only VTE Present on Admission: No VTE Mechan Device Prophylaxis: None VTE Pharm Prophylaxis ordered?: Yes Patient Problems: Active and Suspected Problems (Last Reviewed 04/10/18 @ 09:05 by Ayla Bates) Shortness of breath (Acute) - Physical Exam General: Alert, Oriented x3, Cooperative, - - moderate distress HEENT: Atraumatic, PERRLA, EOMI, Normocephalic Oral: Dry Mucosa Neck: Supple, No JVD, Negative Carotid Bruits Lungs: Short of Breath - decreased breath sounds bibasally with wheezing., - - dc Cardiovascular: Regular Rhythm, Normal S1, Normal S2, No murmurs, Tachycardic Abdomen: Bowel Sounds Present, Soft, Non Tender, Non-Distended, No Hepato-splenomegaly Extremities: No clubbing, No cyanosis, No edema, Capillary Refill Less than 3 Seconds Skin: No rashes, No breakdown Musculoskeletal: No Tenderness to Palpation of Joints or Extremities Lymphatic: No Cervical, Supraclavicular, or Inguinal Adenopathy Neurological: Cranial nerves II-XII grossly intact, Motor Exam 5/5 strength throughout Psych/Mental Status: Normal Affect, Appropriate, Alert and oriented to time, place, person, mood and affect Vital Signs Temp Pulse Resp BP Pulse Ox 96.8 F L 102 H 18 125/70 H 87 04/10/18 12:47 04/10/18 15:09 04/10/18 15:09 04/10/18 15:09 04/10/18 15:09 Weight: 334 lb 6.4 oz Body Mass Index (BMI) 47.9 Diagnostic Data Chest X-Ray 04/10/18 16:01 IMPRESSION: Possible minimal increased density in the right middle lobe which could be some minimal atelectasis or scarring. Electronically Signed: Alejandro Parra MD at 16:27 EDT , Service support , Assessment/Plan All Active Problems (Last Reviewed 04/10/18 @ 09:05 by Ayla Bates) Shortness of breath (Acute) Abdominal pain (Acute) Nausea AND vomiting (Acute) Acute cholecystitis (Acute) 33-year-old female with a history of asthma and nicotine dependence presenting with a 10 day history of shortness of breath and a cough productive of clear sputum. 1. Viral URTI * symptoms havent resolved for past 10 days. Has associated fever, chills, anorexia, nausea and vomiting. * labs not checked in ED. * admit to [facility] * check CBC, BMP, respiratory panel with influenza screen * CXR showed questionable pneumonia vs atelectasis; will defer on antibiotics for now as patient's symptoms point more towards viral etiology; per my review of xray, it is not very convincing for pneumonia * resuscitate with IVF NS @ 150cc/hr * oxygen to maintain saturation >92% * breathing treatments with albuterol * IV solumedrol 40mg q8 * guafenesin cough syrup prn * 2. Asthma: * currently has wheezing, likely due to viral URTI. Will give breathing treatments and solumedrol 3. Acute hypoxic respiratory failure due to Probable sleep apnea and obesity hypoventilation syndrome * Was noted to desaturate to around 87% on room air when she dozed off. Patient's Well score is 1.5, making PE very unlikely. Her symptoms point more towards sleep apnea, exacerbated by the viral URTI. * Patient smokes heavily, Is morbidly obese with BMI of around 48. Since she has been told by a nurse to come to visit her grandmother that she needs to buy pulse oximeter to check and saturation. * will refer for sleep study on outpatient basis. * Oxygen to maintain saturation above 92%. * 4. Nicotine dependence: nicotine patch 21mg daily 5. DVT prophylaxis: heparin Code status: Counseled about different types of CODE STATUS. Counseled about differences between full code, DNR CCA and DNR CCA. Patient elects to be full code. Total hpfg-vs-obxe time 20 minutes. This note was generated with Dragon dictation software. It may contain incorrect words, spelling, and punctuation that were not noted in checking the note before signing. Code Visit OBSV E AND M: [id number] Initial observation care L3 04/10/18 1742 <Electronically signed by Svitlana Chicas MD> Date Svitlana Chicas MD Cosigner Signature: Date (if applicable) CC: Cherri Patiño MD; Svitlana Chicas MD Signed Observed: 04/10/2018 Status: F Source: [place] RESPIRATORY PANEL 5:37 PM [facility] RE[facility] Order Date: 04/10/18 RP PANEL Normal Reference Range = Not Detected Copy of report sent to Infection Control Printer [id number] 04/11/18 0451 RANDEE. RESULTS CALLED TO WISAM BOX MS3 04/11/18 0451 Yolanda Bal. REPORT READ BACK BY SAME. ADENOVIRUS Not Detected HUMAN METAPHNEUMO Not Detected INFLUENZA A Not Detected INFLUENZA A (SUBTYPE H1) Not Detected INFLUENZA A (SUBTYPE H3) Not Detected INFLUENZA B Not Detected PARAINFLUENZA 1 Not Detected PARAINFLUENZA 2 Not Detected PARAINFLUENZA 3 Not Detected PARAINFLUENZA 4 Not Detected RHINOVIRUS Positive for RHINOVIRUS by NAAT technology RSV A Not Detected RSV B Not Detected NAAT METHOD Testing was performed using nucleic acid amplification ORGANISM 1: RHINOVIRUS Performed By: #### M100.638 #### [facility] [address] [place], [address] EMERGENCY DEPARTMENT Observed: 04/10/2018 Status: F Source: [place] SUMMARY 5:02 PM [facility] Medical Records Department [address] [place] [address] Emergency Department Summary 04/10/18 1326 MR#: [id number] Acct: [id number] Name: NEGRITO BUSTAMANTE Rep #: [id number] : 1985 33 From: Kory Wayne MD PCP: Cherri Patiño MD Status: ADM LEE - ER Visit Summary Date of Service: 04/10/18 Chief Complaint: Cough and wheezing History of Present Illness: The patient is a 33 F kidney stones. Patient states for the last 10 days she has had cough, congestion wheezing. She is also had nausea and vomiting. Saw her nurse practitioner and was started on Zithromax Z-JODY which she is finished and cough syrup. Today saw her nurse practitioner again and was started on prednisone which she has not taken as of yet. Basically she states she is sick of being sick. Patient does smoke 1-1/2 packs of cigarettes per day. She denies any hemoptysis. She has had respiratory infections like this before. Physical Examination: HEENT exam unremarkable mild erythema left TM. Posterior pharynx unremarkable neck nontender no lymphadenopathy. Lungs expiratory wheezing throughout. Dry cough. No rales. No rhonchi. Heart regular rhythm rate about 100 no murmur. Abdomen morbidly obese soft nontender nondistended normal bowel sounds no peritoneal signs. Moving all 4 extremities. Neurovascularly intact. Calves nontender without edema or cords. Neurologically she is awake alert with no focal motor deficits. Back exam nontender. Test Results: Chest x-ray two-view in the ER showed no acute abnormality. There was also a chest x-ray done as an outpatient which it was a questionable hilar infiltrate which I reviewed and I would not call a pneumonia from that x-ray. Emergency Department Course and Treatment: IV fluids. IV Zofran. IV Solu-Medrol. Breathing treatments including both albuterol and DuoNeb Multiple repeat exams the patient has intermittent hypoxia. I think this is secondary to bronchospasm, viral respiratory infection and her body habitus. Treatment Plan: I will speak to the hospitalist about admission Disposition: Discharge Impression: Viral bronchitis with bronchospasm w/ hypoxia Tobacco abuse. Nausea and vomiting This note was generated with Our[employer] dictation software. It may contain incorrect words, spelling, and punctuation that were not noted in review of the chart prior to signing ED Disposition - Plan for ED Patient: Chief Complaint: Cough Referrals: Cherri Patiño MD [Primary Care Provider] - What to do if you have Problems For any increased pain, shortness of breath, bleeding, nausea or vomiting, chest pain, or any unexpected problems, contact your Primary Care Provider. Call [facility] ([phone]) or report to the closest Emergency Room. Call 911 if necessary. 04/10/18 1702 <Electronically signed by Kory Wayne MD> Date Kory Wayne MD Cosigner Signature (If Indicated): Date CC: Cherri Patiño MD INTERNAL MEDICINE Observed: 04/10/2018 Status: F Source: [place] OFFICE VISIT 4:34 PM [facility] [address] [place] [address] [place] [address] OFFICE VISIT Date of Service: 04/10/18 MR#: [id number] Acct: [id number] Name: NEGRITO BUSTAMANTE Romana Rep #: [id number] : 1985 Provider: Blaine Gage NP Age/Sex: 33/F Location: [facility] Status: Signed Intake Vital Signs04/10/18 Height 5 ft 10 in Intake Visit Reasons: worsening cough, N AND V Chief Complaint: cough Is patient in pain?: Yes (chest) Allergies ceftriaxone sodium [From Rocephin] Allergy (Verified 04/04/18 11:08) Hives tramadol Allergy (Verified 04/04/18 11:08) Hives bupropion HCl [From Wellbutrin] Adverse Reaction (Verified 04/04/18 11:08) MAKES ANXIETY WORSE Medications gabapentin 100 mg capsule 100 mg PO QHS #30 cap 01/02/18 [Rx Confirmed 04/04/18] Ibuprofen [Motrin] 800 mg PO TID PRN PRN #20 tab 03/09/18 [Rx Confirmed 04/04/18] albuterol sulfate HFA 90 mcg/actuation aerosol inhaler 1 - 2 puff INHALATION Q6H PRN PRN #1 inhaler 03/27/18 [Rx Confirmed 04/04/18] dextromethorphan-guaifenesin ER 60 mg-1,200 mg tab,extend release,12hr 1 tab PO DAILY PRN #10 tab 04/04/18 [Rx Confirmed 04/04/18] codeine 10 mg-guaifenesin 100 mg/5 mL oral liquid See Label Instructions PO Q6H PRN #120 ml 04/10/18 [Rx Confirmed 04/10/18] levofloxacin 750 mg tablet 750 mg PO DAILY #7 tab 04/10/18 [Rx Confirmed 04/10/18] ondansetron 4 mg disintegrating tablet 4 mg PO TID PRN 5 Days #30 tab 04/10/18 [Rx Confirmed 04/10/18] prednisone 10 mg tablet See Label Instructions PO QDAY #30 tab 04/10/18 [Rx Confirmed 04/10/18] PFSH Medical History Obesity (Chronic) Chronic low back pain (Chronic) Kidney stones (Chronic) Anxiety (Chronic) Anemia (Acute) Panic attacks (Acute) Bipolar depression manic phase (Chronic) COPD (chronic obstructive pulmonary disease) (Chronic) Hydocephalus (Chronic) Surgical History D AND C (Acute) History of 3 sections (Acute) History of bilateral tubal ligation (Acute) History of cholecystectomy (Acute) History of tonsillectomy (Acute) left ankle ligament repair (Acute) Family History Grandmother Asthma Thyroid disorder Mother Asthma Thyroid disorder COPD (chronic obstructive pulmonary disease) Aunt Asthma Heart disease Hypertension Thyroid disorder Emphysema, unspecified Grandfather Asthma Diabetes Hypertension Hyperlipidemia COPD (chronic obstructive pulmonary disease) Social History Smoking Status: Current every day smoker alcohol intake: never substance use type: does not use what type of physical activity do you participate in: walking frequency: daily HPI HPI Chief Complaint: cough Details: NEGRITO BUSTAMANTE, is a 33 F who presents to the office today for worsening cough. Past medical history includes migraines, depression, obesity, anxiety, and chronic low back pain. Patient stated that her cough has worsened since last visit on April 04, 2018 on that visit patient was prescribed a Z-Jody, cough syrup with codeine as needed and Mucinex DM. Patient stated her cough is worse and that she is coughing constantly. She stated that sometimes the cough is productive and greenish yellow, the majority time it is dry. Patient stated that she has severe nausea that she can not eat or drink without vomiting and that she could not keep her Z-Jody or cough syrup with codeine down. She stated her shortness of breath has increased and that she is using her Ventolin inhaler at least 6-8 times a day with little effect. She states she lost 6 pounds from vomiting. She stated that she had periods of feeling warm and chills but did not take her temperature. She stated that she has taken Phenergan and Zofran at home but after she takes it she immediately vomits. She does complain of rib and chest tightness with coughing. She has repeatedly stated that she wants to be admitted to the hospital for IV antibiotics as she has developed symptoms like this in the past and developed subsequently pneumonia and had to be hospitalized. She otherwise denies any aggravating or alleviating factors. ROS Const Constitutional: Positive for body ache, chills and fever(s); no weight change, fatigue, sleep problems, change in appetite, snoring, weakness, frequent falls, headache(s) or excessive sweating Eyes Eyes: No change in vision, eye pain, light sensitivity or blurry vision ENT ENT: No headache(s), abnormal hearing, ear pain, tinnitus, nasal congestion, sore throat or neck pain Resp Respiratory: Positive for cough Cough: Yes productive and non-productive, shortness of breath and pain with cough; no snoring or wheezing Cardio Cardiology: Positive for dyspnea on exertion (from coughing ); no excessive sweating, chest pain at rest, chest pain with exertion, palpitations, orthopnea or lightheadedness Gastro GI: Positive for diarrhea, vomiting and nausea/dyspepsia; no abdominal pain, change in bowel habits, constipation or cramping Genitourinary-Female: No burning urination, painful urination, urinary incontinence, urinary frequency, abnormal vaginal bleeding, pelvic pain or other Musc Musculoskeletal: No neck pain, abnormal walking, joint pain, back pain, limited range of motion, numbness or tingling Skin Skin: No redness, dry skin, itching, lesions, wounds or rash Neuro Neurology: No weakness, frequent falls, headache(s), abnormal hearing, abnormal walking, numbness, tingling, abnormal speech, dizziness or memory loss Psych Psychiatric: No change in appetite, No memory loss, No anxiety, No depression, No Thoughts of harming yourself/Others Endo Endocrine: No fatigue, excessive sweating, cold intolerance, increased thirst/drinking, heat intolerance, flushing or increased hunger Aller/Imm Allergy/Immunologic: No wheezing, itchy eyes, hives or seasonal allergy symptoms Clif/Lymp Hematologic/Lymphatic: No easy bleeding, easy bruising or enlarged lymph nodes Exam Const General: no acute distress, anxious, disheveled, cooperative Nutritional Appearance: overweight Orientation: oriented x3, awake, alert Limitations: mental status not altered HENMT Head: normal to inspection, normocephalic, atraumatic Ears: hearing grossly normal bilaterally, TM's normal bilaterally Nose: nasal discharge clear, external nose normal Face and sinus: sinus tenderness frontal Mouth: tongue normal, oral mucosae normal, moist mucous membranes Throat: uvula midline, posterior oropharynx abnormal erythema, postnasal drainage Eyes General: appearance normal, both eyes and all related structures Neck Neck: normal visual inspection, no lymphadenopathy Chest Chest palpation AND inspection: localized rib tenderness with anteroposterior compression, tenderness (upon palpation ) rib (bilateral ribs ) Resp Effort AND Inspection: audible wheezes Auscultation: Bilateral: Diminished Base, Inspiratory Wheezes, Expiratory Wheezes Percussion: percussion normal Cardio Palpation: normal PMI Rate: regular rate Rhythm: regular rhythm Heart Sounds: S1 normal, S2 normal GI Inspection: normal to inspection Auscultation: normal bowel sounds, normoactive bowel sounds Palpation: soft Skin General: no rashes or lesions noted, elasticity normal, turgor normal Lesions: no lesions Rashes: no rashes Neuro General: alert, awake, oriented x3, CN's II-XI intact bilaterally Speech: speech normal Gait: normal gait Motor: muscle tone normal throughout Extrem General: normal to inspection, edema Laterality: bilateral Severity: non-pitting Psych Appearance: disheveled Mental Status: mental status grossly normal Mood: anxious mood Affect: anxious affect, tearful Speech and Movement: speech and movement normal Attitude: cooperative Thought Process: normal Thought Content: normal Judgment: judgment good Assessment AND Plan Problems 1. Acute bronchitis J20.9 2. Cough R05 3. Non-intractable vomiting with nausea, unspecified vomiting type R11.2 4. Tobacco abuse Z72.0 Plan Patient's cough worsened and patient was unable to take her prescribed codeine-guaifensein or previously prescribed Z-Jody appropriately due to nausea and vomiting. Patient prescribed Zofran ODT as needed and a prescription for codeine-guaifenesin provided for her cough. Chest x-ray PA and lateral ordered which revealed suggestive of atelectasis and/or early infiltrate in the right middle lobe and anterior segment of the lingular segment of the left upper lobe. Discussed this with patient due to previous history of pneumonia requiring hospitalization, will treat with levaquin 750 mg daily x 7 days prescribed. Given her worsening cough and bronchitis, will treat with prednisone taper as well. Encouraged smoking cessation again. Discussed red flag symptoms and when to seek urgent medical attention, discussed going to emergency department if condition worsens. Patient to follow- up as previously scheduled or if symptoms worsen. Orders Orders: Medications New: Refilled: Discontinued: azithromycin Discontinued Reason: Order CTake two tablets by mouth on day one then one ompleted tablet by mouth on days 2-5 Plan Detail Follow Up Follow-up as previously scheduled or symptoms worsen Coding Level of Care Code Off vis,est,level 3 Diagnoses Acute bronchitis J20.9 Cough R05 Non-intractable vomiting with nausea, unspecified vomiting type R11.2 Vomiting Intractability: non-intractable Vomiting type: unspecified Tobacco abuse Z72.0 04/10/18 1634 <Electronically signed by Blaine PERLA> Date Blaine PERLA Cosigner Signature: Date (if applicable) CC: CHEST PA AND LATERAL Observed: 04/10/2018 Status: F Source: [place] 3:57 PM [facility] Imaging Services [address] [place] [address] [place] [address] Chest PA and Lateral MR#: [id number] Acct: [id number] Name: NEGRITO BUSTAMANTE Rep #: [id number] : 1985 F 33 From: Alejandro Parra MD PCP: Cherri Patiño MD Status: REG ER Study: Chest PA and Lateral Date of Exam: 04/10/18 Exam# [id number] Ordering Dr: Kory Wayne MD STUDY: X-RAY CHEST REASON FOR EXAM: Female, 33 years old. Cough. Hypoxia. TECHNIQUE: Frontal and lateral views of the chest. COMPARISON: Same day at 10:11 AM FINDINGS: Normal lung volumes. Possible minimal increased density in the right middle lobe which could be some minimal atelectasis or scarring. No effusions. Normal size heart. Normal mediastinum and jag. Normal visualized pulmonary arteries. Normal visualized aortic arch and descending thoracic aorta. Normal visualized thoracic spine. Normal visualized ribs, clavicles, and shoulders. There is no demonstrated abnormality of the visualized soft tissue structures of the upper abdomen. RAD/Chest PA and Lateral IMPRESSION: Possible minimal increased density in the right middle lobe which could be some minimal atelectasis or scarring. Electronically Signed: Alejandro Parra MD at 16:27 EDT , Service support , CC: Cherri Patiño MD; Kory Wayne MD Form Worker: Signed CHEST PA AND LATERAL Observed: 04/10/2018 Status: F Source: [place] 10:01 AM [facility] Imaging Services [facility] [place] [address] Chest PA and Lateral MR#: [id number] Acct: [id number] Name: NEGRITO BUSTAMANTE Rep #: [id number] : 1985 F 33 From: Ej Sam MD PCP: Cherri Patiño MD Status: REG CLI Study: Chest PA and Lateral Date of Exam: 04/10/18 Exam# [id number] Ordering Dr: Blaine Gage [employer] STUDY: X-RAY CHEST REASON FOR EXAM: Female, 33 years old. 10 day history of cough and increasing shortness of breath. TECHNIQUE: PA and lateral views of the chest. COMPARISON: Comparison is made with prior study dated October 06, 2017. FINDINGS: There now is evidence of increased markings with areas of confluence in the right middle lobe as well as the lingular segment of the left upper lobe. Early infiltrate should be ruled out. Follow-up is recommended. There is no demonstrated pleural abnormality. Normal size heart. Normal mediastinum and jag. Normal visualized pulmonary arteries. Normal visualized aortic arch and descending thoracic aorta. Normal visualized thoracic spine. Normal visualized ribs, clavicles, and shoulders. There is no demonstrated abnormality of the visualized soft tissue structures of the upper abdomen. RAD/Chest PA and Lateral IMPRESSION: Findings suggestive of atelectasis and/or early infiltrate in the right middle lobe and anterior segment of the lingular segment of the left upper lobe follow-up is recommended. Electronically Signed: Ej Sam MD at 10:33 EDT Tel [phone], Service support , CC: Cherri Patiño MD; Blaine Gage NP Form Worker: Signed INTERNAL MEDICINE Observed: 04/04/2018 Status: F Source: [place] OFFICE VISIT 2:01 PM [facility] [address] [place] [address] [place] [address] OFFICE VISIT Date of Service: 04/04/18 MR#: [id number] Acct: [id number] Name: NEGRITO BUSTAMANTE Rep #: [id number] : 1985 Provider: Blaine Gage NP Age/Sex: 33/F Location: [facility] Status: Signed Intake Vital Signs04/04/18 Height 5 ft 10 in 04/04/18 Weight: 341 lb 04/04/18 Body Mass Index (BMI) 48.9 04/04/18 Blood Pressure 116/82 Intake Visit Reasons: COLD Chief Complaint: cough Is patient in pain?: Yes (Headache) Pain scale (1-10): 8 Allergies ceftriaxone sodium [From Rocephin] Allergy (Verified 04/04/18 11:08) Hives tramadol Allergy (Verified 04/04/18 11:08) Hives bupropion HCl [From Wellbutrin] Adverse Reaction (Verified 04/04/18 11:08) MAKES ANXIETY WORSE Medications gabapentin 100 mg capsule 100 mg PO QHS #30 cap 01/02/18 [Rx Confirmed 04/04/18] Ibuprofen [Motrin] 800 mg PO TID PRN PRN #20 tab 03/09/18 [Rx Confirmed 04/04/18] albuterol sulfate HFA 90 mcg/actuation aerosol inhaler 1 - 2 puff INHALATION Q6H PRN PRN #1 inhaler 03/27/18 [Rx Confirmed 04/04/18] azithromycin 250 mg tablet See Label Instructions PO .COMPLEX #6 tab 04/04/18 [Rx Confirmed 04/04/18] codeine 10 mg-guaifenesin 100 mg/5 mL oral liquid See Label Instructions PO Q6H PRN #120 ml 04/04/18 [Rx Confirmed 04/04/18] dextromethorphan-guaifenesin ER 60 mg-1,200 mg tab,extend release,12hr 1 tab PO DAILY PRN #10 tab 04/04/18 [Rx Confirmed 04/04/18] PFSH Medical History Obesity (Chronic) Chronic low back pain (Chronic) Kidney stones (Chronic) Anxiety (Chronic) Anemia (Acute) Panic attacks (Acute) Bipolar depression manic phase (Chronic) COPD (chronic obstructive pulmonary disease) (Chronic) Hydocephalus (Chronic) Surgical History D AND C (Acute) History of 3 sections (Acute) History of bilateral tubal ligation (Acute) History of cholecystectomy (Acute) History of tonsillectomy (Acute) left ankle ligament repair (Acute) Family History Grandmother Asthma Thyroid disorder Mother Asthma Thyroid disorder COPD (chronic obstructive pulmonary disease) Aunt Asthma Heart disease Hypertension Thyroid disorder Emphysema, unspecified Grandfather Asthma Diabetes Hypertension Hyperlipidemia COPD (chronic obstructive pulmonary disease) Social History Smoking Status: Current every day smoker alcohol intake: never substance use type: does not use what type of physical activity do you participate in: walking frequency: daily HPI HPI Chief Complaint: cough Details: NEGRITO BUSTAMANTE, is a 33 F who presents to the office today for an acute visit of worsening cough 4 days. She is a past medical history as listed above. The patient states that approximately 4 days ago she developed a productive cough of yellow sputum and a headache and runny nose as well. She states she was exposed to multiple sick contacts who are recently treated for bronchitis. She is very persistent that she needs antibiotic treatment as she has had multiple times in the past where her symptoms started like this and she ended up being hospitalized and receiving IV antibiotics and steroids. Patient did previously complete a Medrol pack for knee pain after a fall. She denies any increase in shortness of breath or wheezing. She does continue to smoke but states that due to the coughing she is not able to smoke as much and only smokes 6 cigarettes per day. She is also requesting cough syrup with codeine because she states that she trialed Tessalon that she had left over and this did not help and that the cough syrup with codeine is only thing that helps her sleep at night with her cough. OARRS was verified and demonstrates no red flags that would indicate abuse or diversion. She denies any other alleviating or aggravating symptoms. She otherwise denies any fever, chills, nausea, vomiting, shortness of breath, chest pain or pressure, syncope or presyncopal episodes. ROS Const Constitutional: Positive for headache(s); no chills, fatigue, fever(s), frequent falls, malaise, weakness, sleep problems or change in appetite Eyes Eyes: No blurry vision, change in vision, double vision, discharge or visual disturbances ENT ENT: Positive for headache(s), facial pain, sinus pressure, sore throat, hoarseness and nasal congestion; no abnormal hearing, ear pain, ear pressure, tinnitus or dizziness/vertigo Resp Respiratory: Positive for cough Cough: Yes productive and non-productive and chest congestion; no shortness of breath or wheezing Cardio Cardiology: Positive for shortness of breath; no chest pain at rest, chest pain with exertion, dyspnea on exertion, generalized swelling, irregular heart rhythm, lightheadedness, orthopnea, fast heart rate or palpitations Gastro GI: Positive for vomiting (feels like vomitting from coughing so much); no abdominal pain, change in bowel habits, constipation, diarrhea or nausea/dyspepsia Genitourinary-Female: No difficulty urinating, burning urination, painful urination, urinary incontinence, urinary frequency, urinary urgency, urinary hesitancy, urinary retention, Frequent nighttime urination/ nocturia, sexual problems, genital lesions, abnormal vaginal bleeding, pelvic pain, vaginal dryness, vaginal odor or Vaginal Itching Musc Musculoskeletal: No joint pain, back pain, joint swelling, limited range of motion, muscle weakness, numbness or tingling Skin Skin: No change in skin color, itching, rash or wounds Breast Breast: No breast lump or breast pain Neuro Neurology: Positive for headache(s); no frequent falls, weakness, abnormal hearing, numbness, tingling, unsteady gait/balance, dizziness, loss of vision, memory loss or visual disturbances Psych Psychiatric: No memory loss, No anxiety, No change in appetite, No depression, No Thoughts of harming yourself/Others Endo Endocrine: No fatigue, heat intolerance, increased thirst/drinking, increased hunger or increased urination Aller/Imm Allergy/Immunologic: No wheezing, itchy eyes or seasonal allergy symptoms Clif/Lymp Hematologic/Lymphatic: No easy bleeding, easy bruising or enlarged lymph nodes Exam [facility] Head: normal to inspection Ears: hearing grossly normal bilaterally Nose: external nose normal, mucous membranes and turbinates abnormal (edematous and erthematous), nasal discharge clear Face and sinus: normal facial exam, sinuses nontender Mouth: oral mucosae normal Throat: posterior oropharynx normal, postnasal drainage Neck Neck: normal visual inspection, lymphadenopathy Resp Effort AND Inspection: normal respiratory effort, able to speak in complete sentences, cough Quality of cough: actively coughing Auscultation: Bilateral: Clear to Auscultation, Diminished Lung Sounds Cardio Palpation: normal PMI Rate: regular rate Heart Sounds: S1 normal, S2 normal, normal S1 and S2, no click, no gallops, no murmurs, no rubs Musc Musculoskeletal: No muscle weakness Skin General: no rashes or lesions noted, elasticity normal, turgor normal Lesions: no lesions Rashes: no rashes Neuro General: alert, awake, oriented x3, CN's II-XI intact bilaterally Speech: speech normal Gait: normal gait Motor: muscle tone normal throughout Extrem General: normal to inspection, normal gait, no edema, no pedal edema Psych Appearance: grossly normal Mental Status: mental status grossly normal Affect: normal affect Attitude: cooperative Thought Process: normal Assessment AND Plan Problems 1. Acute bronchitis, unspecified organism J20.9 2. Cough R05 3. Tobacco abuse Z72.0 Plan Patient symptoms are consistent with that of acute bronchitis, though most likely viral, patient's multiple comorbidities complicate her overall plan of care and given her significant smoking history and fact that she has been hospitalized multiple times in the past requiring IV steroids and antibiotics, will treat her empirically with azithromycin. Cough syrup with codeine order to be taken at night and Mucinex DM ordered to be taken during the day with a full glass of water. Discussed the benefits of smoking cessation, patient refuses to cut back anymore at this time. Discussed increasing rest, hand hygiene, and fluid intake. Patient verbalized understanding. Patient to follow-up as previously scheduled or sooner if needed. Dragon disclaimer Medications New: Discontinued: Plan Detail Follow Up As previously scheduled or sooner Coding Level of Care Code Off vis,est,level 3 Diagnoses Acute bronchitis, unspecified organism J20.9 Bronchitis organism: unspecified organism Cough R05 Tobacco abuse Z72.0 04/04/18 1401 <Electronically signed by Blaine PERLA> Date Blaine PERLA Cosigner Signature: Date (if applicable) CC: KNEE 3 VIEWS Observed: 03/27/2018 Status: F Source: [place] 4:48 PM [facility] Imaging Services [address] [place] [address] Knee 3 Views MR#: [id number] Acct: [id number] Name: NEGRITO BUSTAMANTE Rep #: [id number] : 1985 F 33 From: Gordon Min PCP: Cherri Patiño MD Status: REG CLI Study: Knee 3 Views Date of Exam: 03/27/18 Exam# [id number] Ordering Dr: Blaine Gage [employer] [facility]-C STUDY: X-RAY - LEFT KNEE REASON FOR EXAM: Female, 33 years old. Fall TECHNIQUE: 3 view(s) of the knee. COMPARISON: None. FINDINGS: Normal visualized distal femur. Normal visualized proximal tibia and fibula. Normal proximal tibiofibular articulation. Normal medial femorotibial compartment. Normal lateral femorotibial compartment. Normal patellofemoral articulation. The soft tissue structures are unremarkable. RAD/Knee 3 Views IMPRESSION: Normal x-ray examination of the knee. Electronically Signed: Gordon Min MD at 5:09 EDT , Service support , CC: Cherri Patiño MD; Blaine Gage NP Form Worker: Signed INTERNAL MEDICINE Observed: 03/27/2018 Status: F Source: NOY OFFICE VISIT 4:44 PM [facility] REPOSITORY [facility] [address] [place] [address] [place] [address] OFFICE VISIT Date of Service: 03/27/18 MR#: [id number] Acct: [id number] Name: NEGRITO BUSTAMANTE Romana Rep #: [id number] : 1985 Provider: Blaine Gage NP Age/Sex: 33/F Location: [facility] Status: Signed Intake Vital Signs03/27/18 Height 5 ft 10 in 03/27/18 Weight: 347 lb 03/27/18 Body Mass Index (BMI) 49.8 03/27/18 Blood Pressure 105/73 Intake Visit Reasons: Knee injury Chief Complaint: Left Knee injury Is patient in pain?: Yes (Lt Knee) Pain scale (1-10): 8 Allergies ceftriaxone sodium [From Rocephin] Allergy (Verified 03/27/18 14:13) Hives tramadol Allergy (Verified 03/27/18 14:13) Hives bupropion HCl [From Wellbutrin] Adverse Reaction (Verified 03/27/18 14:13) MAKES ANXIETY WORSE Medications gabapentin 100 mg capsule 100 mg PO QHS #30 cap 01/02/18 [Rx Confirmed 03/27/18] Ibuprofen [Motrin] 800 mg PO TID PRN PRN #20 tab 03/09/18 [Rx Confirmed 03/27/18] Ondansetron [Zofran Odt] 4 mg PO Q8H PRN PRN #10 tab 03/09/18 [Rx Confirmed 03/27/18] Hydrocodone Bitart/Apap 5-325 [[place] 5MG-325MG] 1 tab PO Q6H PRN PRN 3 Days #10 tab 03/12/18 [Rx Confirmed 03/27/18] albuterol sulfate HFA 90 mcg/actuation aerosol inhaler 1 - 2 puff INHALATION Q6H PRN PRN #1 inhaler 03/27/18 [Rx Confirmed 03/27/18] methylprednisolone 4 mg tablets in a dose pack See Label Instructions PO PER PKG DIR #21 tab 03/27/18 [Rx Confirmed 03/27/18] PFSH Medical History Obesity (Chronic) Chronic low back pain (Chronic) Kidney stones (Chronic) Anxiety (Chronic) Anemia (Acute) Panic attacks (Acute) Bipolar depression manic phase (Chronic) COPD (chronic obstructive pulmonary disease) (Chronic) Hydocephalus (Chronic) Surgical History D AND C (Acute) History of 3 sections (Acute) History of bilateral tubal ligation (Acute) History of cholecystectomy (Acute) History of tonsillectomy (Acute) left ankle ligament repair (Acute) Family History Grandmother Asthma Thyroid disorder Mother Asthma Thyroid disorder COPD (chronic obstructive pulmonary disease) Aunt Asthma Heart disease Hypertension Thyroid disorder Emphysema, unspecified Grandfather Asthma Diabetes Hypertension Hyperlipidemia COPD (chronic obstructive pulmonary disease) Social History Smoking Status: Current every day smoker alcohol intake: never substance use type: does not use what type of physical activity do you participate in: walking frequency: daily HPI HPI Chief Complaint: Left Knee injury Details: NEGRITO BUSTAMANTE, is a 33 F who presents to the office today for an acute visit of left knee pain. She has a past medical history as listed above. The patient states that this previous Monday she was walking outside and slipped and fell on the mild. She states that she heard her left knee pop and that she fell to the side and twisted her left knee. She states since then it has been in excruciating pain 8 out of 10 pain at rest and 10 out of 10 pain walking. She states that the site is edematous and that she feels it pop out of place all the time. She states that she has been taking approximately 5600 mg of ibuprofen and 4000 mg of Tylenol daily without much relief. She denies any numbness or tingling though does state that the gabapentin occasionally helps with her knee pain. She denies any other concerns. She continues to see pain management. She denies any other aggravating or relieving symptoms. ROS Const Constitutional: No chills, fatigue, fever(s), frequent falls, malaise, weakness, sleep problems or change in appetite Eyes Eyes: No blurry vision, change in vision, double vision, discharge or visual disturbances ENT ENT: No abnormal hearing, ear pain, ear pressure, tinnitus or dizziness/vertigo Resp Respiratory: No cough, shortness of breath or wheezing Cardio Cardiology: No chest pain at rest, chest pain with exertion, shortness of breath, dyspnea on exertion, generalized swelling, irregular heart rhythm, lightheadedness, orthopnea, fast heart rate or palpitations Gastro GI: No abdominal pain, change in bowel habits, constipation, diarrhea, nausea/dyspepsia or vomiting Genitourinary-Female: No difficulty urinating, burning urination, painful urination, urinary incontinence, urinary frequency, urinary urgency, urinary hesitancy, urinary retention, Frequent nighttime urination/ nocturia, sexual problems, genital lesions, abnormal vaginal bleeding, pelvic pain, vaginal dryness, vaginal odor or Vaginal Itching Musc Musculoskeletal: Positive for joint pain (Injured Lt Knee), limited range of motion and stiffness; no back pain, joint swelling, muscle weakness, numbness or tingling Skin Skin: No change in skin color, itching, rash or wounds Breast Breast: No breast lump or breast pain Neuro Neurology: No frequent falls, weakness, abnormal hearing, numbness, tingling, unsteady gait/balance, dizziness, loss of vision, memory loss or visual disturbances Psych Psychiatric: No memory loss, No anxiety, No change in appetite, No depression, No Thoughts of harming yourself/Others Endo Endocrine: No fatigue, heat intolerance, increased thirst/drinking, increased hunger or increased urination Aller/Imm Allergy/Immunologic: No wheezing, itchy eyes or seasonal allergy symptoms Clif/Lymp Hematologic/Lymphatic: No easy bleeding, easy bruising or enlarged lymph nodes Exam Const General: cooperative, comfortable, no acute distress Nutritional Appearance: average body habitus, well nourished Orientation: alert, oriented x3 Limitations: mental status not altered Resp Effort AND Inspection: normal respiratory effort, able to speak in complete sentences, normal respiratory pattern, symmetric chest movement, no audible wheezes, no cough Auscultation: Bilateral: Clear to Auscultation Cardio Palpation: normal PMI Rate: regular rate Heart Sounds: S1 normal, S2 normal, normal S1 and S2, no click, no gallops, no murmurs, no rubs Musc Musculoskeletal: No muscle weakness Other: Small amount of ecchymosis present left posterior knee, due to patient body habitus unsure of the degree of edema present. Unable to perform any passive or active range of motion due to pain. Patient did however get up on the exam table without any difficulties and was visualized walking in the lobby without any deficit. Gait and exam room however was guarded and a limp on the left side Psych Appearance: grossly normal Mental Status: mental status grossly normal Affect: normal affect Attitude: cooperative Thought Process: normal Assessment AND Plan 1. Injury of left knee, initial encounter S89.92XA Plan Conservative management at this time. X-ray will be ordered for evaluation. Medrol dose pack Rest the affected extremity Ice the affected area for 20 minutes every 4 hours Compress the area with the supplies provided Elevate the affected extremity above the heart whenever possible Discussed the proper use of NSAIDs and not to exceed 2400 mg of ibuprofen daily due to the risk of GI bleed and nephrotoxicity. Patient verbalized understanding. Discussed not to exceed 4000 mg of Tylenol daily. Conservative management at this time. Discussed red flag symptoms that require urgent medical attention. Patient verbalized understanding. Dragon disclaimer Plan Detail Other Orders Orders: Other Medications New: Refilled: Follow Up 4 weeks or sooner if Coding Level of Care Code Off vis,est,level 3 Diagnoses Injury of left knee, initial encounter S89.92XA Encounter type: initial encounter Laterality: left 03/27/18 1644 <Electronically signed by Blaine PERLA> Date Blaine PERLA Cosigner Signature: Date (if applicable) CC: BASIC METABOLIC Collected: 03/27/2018 Status: F Source: [place] PROFILE (BMP) 4:40 PM [facility] REPOSITORY TYPE CODE TESTS RESULT OUT OF RANGE REFERENCE UNITS LAB L501.0100 74-106 mg/dL High GLU 111 Result Comment: Fasting Glucose result from 100 to 125 mg/dL suggests IMPAIRED HOMEOSTASIS per A.D.A. criteria. Please note revised GLUCOSE reference range effective 2017. LAB L501.1000 7-18 mg/dL Low BUN 5 LAB L501.1100 0.55-1.02 mg/dL Normal CREAT,SERUM 0.65 Result Comment: The validity of the calculated GFR AND GFRAA in patients over 70 years has not been determined. Clinical correlation is essential. LAB L501.1110 >60 mL/min Normal EST GFR 113 Result Comment: Non- GFR Calc LAB L501.1115 >60 mL/min Normal EST GFR - AA 137 Result Comment: GFR Calc LAB L501.1300 10-20 RATIO Low BUN/CRE 7.7 LAB L501.2200 8.5-10.1 mg/dL Normal CA 8.6 LAB L501.5300 136-145 mmol/L Normal NA 141 LAB L501.5600 3.5-5.1 mmol/L Normal K 3.5 LAB L501.5900 98-107 mmol/L Normal CL 105 LAB L501.6100 21.0-32.0 mmol/L Normal CO2 25.0 LAB L501.6200 5-15 Normal GAP 11 Performed By: #### L500.2500 #### [facility] [address] [place], [address] OT FUNCTIONAL CAPACITY Observed: 03/14/2018 Status: F Source: [place] SIRENA 10:46 AM [facility] REPOSITORY [facility] [address] [place], [place] [address] Fax REHABILITATION SERVICES INITIAL EVALUATION MR#: [id number] Acct: [id number] Name: NEGRITO BUSTAMANTE Rep #: [id number] : 1985 33 From: Jacquelin Avendano Viacandi Referring Dr.: OUT OF TOWN DOCTOR Status: REG RCR Insurance: [facility] Eval Date: SELF PAY INSURANCE HP OT Functional Capacity Eval - Task Lift Comments: unemployed - Reference Duration Sedentary Sedentary Light Light Light Medium Medium Medium Heavy V dewayne Heavy Heavy - Patient Information Height: 5 ft 10 in Weight:: 155.582 kg Hand Dominance: Right Handed - Medical History Medical History Including Restrictions: Pt states medical hx: anxiety, depression, PTSD, Sciatica nerve damage R side, sx L ankle, L knee pain, gall bladder removal, kidney stones, R leg pain, chronic pain syndrome, DDD Lumbar spine. Tens unit for lower back pain. - Diagnoses Diagnoses: Pt states medical hx: anxiety, depression, PTSD, siatica nerve damage R side, sx L ankle, L knee pain, gall bladder removal, kidney stones, R leg pain, chronic pain syndrome, DDD Lumbar spine. - Symptoms Symptoms: Pt reports sharp, stabbing pain in lower back, pain down R leg and when it starts to tingle then will go to sleep on pt. Occassional bilateral arm numbness. Pt states L leg will go numb if sits in different positions. Pt states has Tens unit for lower back pain. - Pain Pain: Pt states at rest lower back 6/10, movement 10/10 lower back pain, R leg pain, sharp pain 8/10. 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 Currently unemployed. - ADLS ADLS: Pt lives in 2 story house 1.5 steps to enter house no handrail. AMB independently, no device needed. Pt has flight of 15 steps to 2nd floor where bedroom and bathroom are 10 of the steps have 1 handrail. Pt states handrail is not very sturdy. Lives w/ spouse, her 2 boys and grandmother. Pt reports that she requires assist with socks/shoes, pants and bending down. She is independent with UB dressing. States her spouse washes feet for bathing tasks because she can't bend down. Spouse completes laundry. Pt states she is able to complete cooking if she stands for a little amount of time and then sits down in chair and switches back and forth between the two. Bathroom setup is tub/shower no AE, std toilet seat. Sleeps in regular bed with use of 6 pillows to help prop self up. Drives. - Physical Examination Physical Examination: Pt completed functional activities questionnaire stating the following: No I don't exercise regularly. No I can't do yard work, No I can't sit through a movie, play or concert. No I can't walk in yard. No I can't walk around the block. Yes/No she is able to shop for groceries if she rides in a scooter. No she is not able to carry groceries into the house and put them away. No can't do laundry. Yes/No she can walk up/down steps, she reports it takes 10 minutes to climb 15 steps. No she is not able to cook and do housework such as sweeping, vacuuming and cleaning. Yes she is able to bath, feed, dress and otherwise care for herself. Pt reports can drive or ride in a car for 1/2 hr before needs to get out and stretch. Can't walk at a mall, fair or event. Usually sits for 8-12 hrs a day. Usually stands/walks for 1/2hr a day unless made. Usually lie/recline for 3-4 hrs a day. States most comfortable position is laying on left side. ROM: BUE ROM WFL. BLE ROM WFL Strength: Generalized MMT. L UE 4-/5, R UE 3+/5. L LE 3+/5, R LE 3/5 Right Ore Buyer Strength Average: 58.33 Left Ore Buyer Strength Average: 55.66 Right Lateral Pinch Average: 12.00 Left Lateral Pinch Average: 11.33 Right Tripod Pinch Average: 9.00 Left Tripod Pinch Average: 9.00 Sensation: Pt has numbness/tingling R leg and when it starts to tingle then will go to sleep on pt. Occassional bilateral arm numbness. Pt states L leg will go numb if sits in different positions Fine Motor: No concerns, pt states independent with medication containers, buttons/zippers and all fine motor tasks. Balance: Pt reports fell beginning of December carrying stuff down steps inside. Mainly has been on steps when falls. Occassional leaning to L or R while walking. No falls during evaluation. - Non Material Handling Activities Bending: Pt states unable to complete or trial secondary to back pain Squatting: Pt states unable to complete or trial secondary to back pain Kneeling: Pt states unable to complete or trial secondary to back pain Reaching out/up: Pt able to complete without loss of balance reaching out to sides and up outside base of support. Walking: Pt able to walk 237ft from lobby to OT area with one standing rest break needed for back pain. Pt able to complete 3 minutes of the 15 minute walk test before needing to sit down secondary to pain in lower back, pt stated unable to walk anymore. Standing: limited standing secondary to back pain, frequent seated rest breaks needed between activities Sitting: Pt able to sit for 40 minutes Climbing Stairs: Pt declined to trial steps stating she wouldn't be able to complete other sections of testing if she trialed the steps and she would rather try the other physical tasks. - Dynamic Occasional Lifting Capacity Floor Lift: Pt states unable to complete or attempt due to back pain Knee Lift: 1x 5lb max Waist Lift: 1x 5lb max Shoulder Lift: 1x 5lb max Overhead Lift: 1x 5lb max Carryin/10 pain lower back to carry 5lbs max Comments: Pt very painful with all lifting tasks. <Electronically signed by Jacquelin Avendano Viar > 03/14/18 1046 CC: Cherri Patiño MD; OUT OF TOWN DOCTOR [facility] Signed For Medicare only, by signing this I certify the plan of care. Physicians Signature Date EMERGENCY DEPARTMENT Observed: 03/12/2018 Status: F Source: [place] SUMMARY 10:21 PM [facility] REPOSIT[facility] Medical Records Department [address] [place] [address] Emergency Department Summary 03/12/18 2219 MR#: [id number] Acct: [id number] Name: NEGRITO BUSTAMANTE Rep #: [id number] : 1985 33 From: Jaclyn Rizo MD PCP: Cherri Patiño MD Status: REG ER - ER Visit Summary Date of Service: 03/12/18 Chief Complaint: Left wrist pain History of Present Illness: The patient is a 33 F presenting with left wrist pain. She states she fell on Monday after tripping. She was seen in the ED at that time. She was given a Velcro wrist splint. She states today she was not wearing her splint and she got up and tripped over a toy. She again landed on her left wrist. She did not hit her head or lose consciousness. She denies other injury. Physical Examination: Vitals are stable. Patient is afebrile. Alert no acute distress. HEENT exam is unremarkable. Neck is nontender Lungs are clear and equal bilaterally. Heart is regular rate and rhythm. Abdomen is soft nontender nondistended. Extremities left wrist diffuse tenderness, painful range of motion, NVID Skin is warm and dry. Remainder of exam is unremarkable. Emergency Department Course and Treatment: X-ray of the left wrist shows no acute process. Advised to continue wearing her Velcro wrist splint. She is given a short course of [place]. She is advised to ice and elevate. Advised return ED if worsening complaints. Advised to follow-up with primary care physician. Disposition: Discharge home Impression: Left wrist sprain This note was generated with [employer] dictation software. It may contain incorrect words, spelling, and punctuation that were not noted in review of the chart prior to signing ED Disposition - Plan for ED Patient: Chief Complaint: Upper Extremity Injury Instructions: ED Sprain Wrist Prescriptions: Hydrocodone Bitart/Apap 5-325 [[place] 5MG-325MG] 1 tablet PO Q6H PRN PRN 3 Days #10 tablet PRN Reason: Pain Referrals: Cherri Patiño MD [Primary Care Provider] - What to do if you have Problems For any increased pain, shortness of breath, bleeding, nausea or vomiting, chest pain, or any unexpected problems, contact your Primary Care Provider. Call [facility] ([phone]) or report to the closest Emergency Room. Call 911 if necessary. 03/12/182220 <Electronically signed by Jaclyn Rizo MD> Date Jaclyn Rizo MD Cosigner Signature (If Indicated): Date CC: Cherri Patiño MD DISCHARGE INSTRUCTION Observed: 03/12/2018 Status: F Source: NO[place] 10:15 PM [facility]IT[facility] Medical Records Department [address] [place] [address] Discharge Instruction 03/12/18 2214 MR#: [id number] Acct: [id number] Name: NEGRITO BUSTAMANTE Rep #: [id number] : 1985 33 From: Jaclyn Rizo MD PCP: Cherri Patiño MD Status: REG ER ED Disposition - Plan for ED Patient: Chief Complaint: Upper Extremity Injury Instructions: ED Sprain Wrist Prescriptions: Hydrocodone Bitart/Apap 5-325 [[place] 5MG-325MG] 1 tablet PO Q6H PRN PRN 3 Days #10 tablet PRN Reason: Pain Referrals: Cherri Patiño MD [Primary Care Provider] - What to do if you have Problems For any increased pain, shortness of breath, bleeding, nausea or vomiting, chest pain, or any unexpected problems, contact your Primary Care Provider. Call [facility] ([phone]) or report to the closest Emergency Room. Call 911 if necessary. 03/12/18 2863 <Electronically signed by Jaclyn Rizo MD> Date Jaclyn Rizo MD Cosigner Signature (If Indicated): Date CC: Cehrri Patiño MD WRIST MIN 3 VIEWS Observed: 03/12/2018 Status: F Source: [place] 8:37 PM [facility] Imaging Services [address] [place] [id number] Wrist min 3 Views MR#: [id number] Acct: [id number] Name: NEGRITO BUSTAMANTE Rep #: [id number] : 1985 F 33 From: Tod Zamarripa MD PCP: Cherri Patiño MD Status: PRE ER Study: Wrist min 3 Views Date of Exam: 03/12/18 Exam# [id number] Ordering Dr: Provider, Ed P. STUDY: X-RAY - LEFT WRIST REASON FOR EXAM: Female, 33 years old. Trauma TECHNIQUE: 3 view(s) of the wrist were obtained. COMPARISON: Previous recent study of 03/10/2018 FINDINGS: Normal visualized distal radius and ulna. Normal radiocarpal articulation. Normal distal radioulnar articulation. Normal carpal bones. Normal carpal articulations. Normal carpometacarpal articulation of the thumb. Normal second through fifth carpometacarpal articulations. Normal visualized metacarpal bones. The soft tissue structures are unremarkable. RAD/Wrist min 3 Views IMPRESSION: Normal x-ray examination of the wrist. Electronically Signed: Tod Zamarripa MD at 20:55 EDT , Service support , CC: ED PHYSICIAN PROVIDER; Cherri Patiño MD Form Worker: Signed EMERGENCY DEPARTMENT Observed: 03/12/2018 Status: F Source: [place] SUMMARY 12:25 AM [facility] Medical Records Department [address] [place] [address] Emergency Department Summary 03/09/18 1732 MR#: [id number] Acct: [id number] Name: NEGRITO BUSTAMANTE Rep #: [id number] : 1985 33 From: Giovanni Feldman DO PCP: Cherri Patiño MD Status: DEP ER - ER Visit Summary Date of Service: 03/09/18 Chief Complaint: Headache History of Present Illness: The patient is a 33 F who states that for the past 4 days she has had an occipital headache that is now generalized. She states that she is out of her gabapentin and and her Ativan. She states the headache is now flaring her anxiety. She states that she has tried everything for her headache and by that she means she has tried Tylenol. The patient states that in the past she has had a history of headaches but has not had any significant migraine like this recently. She denies any preceding aura. She notes nausea and vomiting. She denies any fevers. She denies any stiff neck. Physical Examination: Afebrile vital signs stable Gen: Well-nourished well-developed morbidly obese laying in the bed in a darkened room Head: Normocephalic atraumatic Eyes: Perrl EOMI reports mild photophobia ENT: TMs clear no rhinorrhea moist mucous membranes Neck: Supple no lymphadenopathy no JVD nontender CVS: Regular rate rhythm no murmurs normal S1-S2 Respiratory: No distress clear to auscultation bilaterally chest nontender Abdomen: Soft nontender nondistended normal bowel sounds no masses Back: Nontender Extremity: Nontender no edema Skin: Normal color no rash Neuro: alert orientated 3 CN II-XII intact normal strength sensation reflexes gait cerebellar Psych: Normal affect normal mood Emergency Department Course and Treatment: Patient received Toradol Compazine Benadryl and IV fluids. She states her headache is better. To be discharged home with some Zofran some ibuprofen and some prednisone. Return if worsening or concerns. Impression: 1. Headache This note was generated with OurStory dictation software. It may contain incorrect words, spelling, and punctuation that were not noted in review of the chart prior to signing ED Disposition - Plan for ED Patient: Disposition: Home or Assisted Living Chief Complaint: Headache Instructions: ED Cephalgia Unspecified Prescriptions: Ondansetron [Zofran Odt] 4 mg PO Q8H PRN PRN #10 tab PRN Reason: Nausea Ibuprofen [Motrin] 800 mg PO TID PRN PRN #20 tab PRN Reason: Pain Prednisone [Deltasone] 40 mg PO DAILY #6 tab Referrals: Cherri Patiño MD [Primary Care Provider] - 3-5 Days if not improving What to do if you have Problems For any increased pain, shortness of breath, bleeding, nausea or vomiting, chest pain, or any unexpected problems, contact your Primary Care Provider. Call [facility] ([phone]) or report to the closest Emergency Room. Call 911 if necessary. 03/12/18 0025 <Electronically signed by Giovanni Feldman DO> Date Giovanni Feldman DO Cosigner Signature (If Indicated): Date CC: Cherri Patiño MD EMERGENCY DEPARTMENT Observed: 03/10/2018 Status: F Source: [place] SUMMARY 5:34 PM [facility] Medical Records Department [address] [place] [address] Emergency Department Summary 03/10/18 1556 MR#: [id number] Acct: [id number] Name: NEGRITO BUSTAMANTE Rep #: [id number] : 1985 33 From: Ronen Vinson MD PCP: Cherir Patiño MD Status: REG ER History of Present Illness Chief Complaint: Fall Informant: Patient Onset: Hours - 1.5 Context: Sudden Onset - rolled ankle while stepping on piece of wood Timing: Continuous Quality: ache Location: left ankle. left wrist. head. Current Severity: headache moderate. left ankle pain mild. - wrist Maximum Severity: Severe Worsened by: moving Relieved by: remaining still Associated Symptoms: blurry vision left visual field w/ both eyes, which is better now Narrative: No loss of consciousness. Nauseated, no vomiting. No neck or back pain other than her chronic low back sciatica. Able to walk without any difficulty, she states I am not very worried about my ankle. Right-hand dominant. Hx migraines. - Past Medical History (1) Migraines Status: Chronic (2) Anxiety Status: Chronic (3) Chronic low back pain Status: Chronic (4) Depression Status: Chronic (5) Kidney stones Status: Chronic Past Medical History - Allergies and Home Meds Allergies/Adverse Reactions: Allergies ceftriaxone sodium [From Rocephin] Allergy (Verified 03/09/18 15:34) Hives tramadol Allergy (Verified 03/09/18 15:34) Hives bupropion HCl [From Wellbutrin] Adverse Reaction (Verified 03/09/18 15:34) MAKES ANXIETY WORSE Primary Care Physician: Cherri Patiño MD [Primary Care Provider] - Surgical History: appendectomy, tonsillectomy Lives: Spouse/ Significant Other Smoking Status: Current every day smoker Review of Systems All systems negative except as indicated Eyes: Reports: Visual changes - bilaterally. Denies: Diplopia Gastrointestinal: Reports: Nausea. Denies: Vomiting Musculoskeletal: Reports: Back pain, Extremity Pain. Denies: Neck pain Neurological: Reports: Headache, Numbness - all left fingers only. Denies: Weakness Physical Exam Vital Signs/Narrative: Vital Signs 03/10/18 14:52 97.4 F L 101 H 16 126/78 H 98 Inital Vital Signs reviewed: Yes General: Well nourished, Well developed, Obese, Unkempt Head: Normocephalic, Trauma, Tenderness - left parietal scalp. contusion w/o hematoma or palpable skull fx. no depression/crepitance. Eyes: Perrl, EOMI, - - visual watkins intact ENT: Moist mucous membranes, No rhinorrhea, TM's clear, - - no Jay sign or raccoon eyes.. Negative for: Sinus tenderness Neck: Supple - from, Nontender Extremities: No edema, Tenderness - diffuse left wrist incl carpus. left lateral malleolus w/ swelling. refuses to move left wrist or left fingers due to pain. FROM left ankle and all other joints., - - no deformities Skin: Normal color, No rash. Negative for: Trauma Neurological: Alert, Oriented x3, Cranial nerves II-XII grossly intact, Normal Strength, Parasthesia - all left fingers; brisk CR. Diagnostic/Tx/Re-eval Clinical Impression(s) from Imaging Studies Brain CT 03/10/18 15:45 IMPRESSION: Normal unenhanced CT scan of the brain. Electronically Signed: Kory Wiggins MD at 16:59 EDT , Service support , Wrist X-Ray 03/10/18 15:45 IMPRESSION: Normal x-ray examination of the wrist. Electronically Signed: Jefferson Schwab MD at 16:49 EDT , Service support , Ankle X-Ray 03/10/18 15:59 IMPRESSION: Soft tissue swelling. No acute osseous abnormality. Electronically Signed: Jefferson Schwab MD at 16:50 EDT , Service support , - Medical Decision Making X-rays and CT head are normal with no apparent fractures. Her visual field symptoms resolved on reevaluation. She is quite tender around the area of the scaphoid, so a Velcro thumb spica splint was applied to her left wrist and she was advised to follow-up if still having significant discomfort in 1 week for repeat x-rays and evaluation. An Rodney wrap was placed on her left ankle, she was given pain medication here which helped. Encouraged to take anti-inflammatories [id number] at home as needed for pain. She is comfortable with that plan. ED Disposition - Plan for ED Patient: Disposition: Home or Assisted Living Chief Complaint: Fall Diagnosis: Left ankle sprain, Left wrist sprain, Closed head injury without loss of consciousness Instructions: ED Sprain Wrist, Treating Ankle Sprains Referrals: Cherri Patiño MD [Primary Care Provider] - 1-2 Weeks Additional Instructions: ice/ibuprofen as needed for pain What to do if you have Problems For any increased pain, shortness of breath, bleeding, nausea or vomiting, chest pain, or any unexpected problems, contact your Primary Care Provider. Call [facility] ([phone]) or report to the closest Emergency Room. Call 911 if necessary. 03/10/18 1735 <Electronically signed by Ronen Vinson MD> Date Ronen Vinson MD Cosigner Signature (If Indicated): Date CC: Cherri Patiño MD WRIST MIN 3 VIEWS Observed: 03/10/2018 Status: F Source: [place] 3:48 PM [facility] Imaging Services [address] [place] [address] Wrist min 3 Views MR#: [id number] Acct: [id number] Name: NEGRITO BUSTAMANTE Rep #: [id number] : 1985 F 33 From: Jefferson Schwab MD PCP: Cherri Patiño MD Status: REG ER Study: Wrist min 3 Views Date of Exam: 03/10/18 Exam# [id number] Ordering Dr: Ronen Vinson MD STUDY: X-RAY - LEFT WRIST REASON FOR EXAM: Female, 33 years old. Fall. Generalized pain. TECHNIQUE: 3 view(s) of the wrist were obtained. COMPARISON: None. FINDINGS: Normal visualized distal radius and ulna. Normal radiocarpal articulation. Normal distal radioulnar articulation. Normal carpal bones. Normal carpal articulations. Normal carpometacarpal articulation of the thumb. Normal second through fifth carpometacarpal articulations. Normal visualized metacarpal bones. The soft tissue structures are unremarkable. RAD/Wrist min 3 Views IMPRESSION: Normal x-ray examination of the wrist. Electronically Signed: Jefferson Schwab MD at 16:49 EDT , Service support , CC: RONEN VINSON MD; Cherri Patiño MD Form Worker: Signed ANKLE MIN 3 VIEWS Observed: 03/10/2018 Status: F Source: [place] 3:48 PM [facility] Imaging Services [address] [place] [address] Ankle min 3 Views MR#: [id number] Acct: [id number] Name: NEGRITO BUSTAMANTE Rep #: [id number] : 1985 F 33 From: Jefferson Schwab MD PCP: Cherri Patiño MD Status: REG ER Study: Ankle min 3 Views Date of Exam: 03/10/18 Exam# [id number] Ordering Dr: Ronen Vinson MD STUDY: X-RAY - LEFT ANKLE REASON FOR EXAM: Female, 33 years old. Twisting injury after fall. Lateral pain and swelling. TECHNIQUE: 3 view(s) of the ankle. COMPARISON: None. FINDINGS: Normal visualized distal tibia and fibula. Normal medial and lateral malleoli. Normal tibiotalar articulation and ankle mortise. Normal visualized talus and calcaneus. The visualized subtalar, talonavicular, calcaneocuboid and tarsal articulations are normal. There is generalized soft tissue swelling. RAD/Ankle min 3 Views IMPRESSION: Soft tissue swelling. No acute osseous abnormality. Electronically Signed: Jefferson Schwab MD at 16:50 EDT , Service support , CC: RONEN VINSON MD; Cherri Patiño MD Form Worker: Signed BRAIN/HEAD WITHOUT Observed: 03/10/2018 Status: F Source: [place] CONTRAST 3:48 PM [facility] Imaging Services [address] [place] [address] Brain/Head without Contrast MR#: [id number] Acct: [id number] Name: NEGRITO BUSTAMANTE Rep #: [id number] : 1985 F 33 From: Kory Wiggins MD PCP: Cherri Patiño MD Status: REG ER Study: Brain/Head without Contrast Date of Exam: 03/10/18 Exam# [id number] Ordering Dr: Ronen Vinson MD STUDY: CT BRAIN WITHOUT CONTRAST REASON FOR EXAM: Female, 33 years old. Trauma RADIATION DOSAGE (If Supplied By Facility): CTDIvol = ( 44.99 ) mGy, DLP = ( 812.98 ) mGycm TECHNIQUE: Transaxial CT imaging of the brain was performed without administration of intravenous contrast material. Individualized dose optimization techniques were used for this CT. COMPARISON: December 25, 2017 FINDINGS: Normal soft tissue structures. Normal calvarium. Normal size ventricles and extra-axial spaces for the patient's age. Normal white matter tracts of the cerebral hemispheres. Normal basal ganglia and thalami. Normal brainstem. Normal cerebellum. There is no intracranial hemorrhage. There are no findings of an acute ischemic infarction. Small mucous retention cyst in the right ethmoid sinus CT/Brain/Head without Contrast IMPRESSION: Normal unenhanced CT scan of the brain. Electronically Signed: Kory Wiggins MD at 16:59 EDT , Service support , CC: RONEN VINSON MD; Cherri Patiño MD Form Worker: Signed DISCHARGE INSTRUCTION Observed: 02/02/2018 Status: F Source: [place] 2:19 AM [facility] Medical Records Department [address] [place] [address] Discharge Instruction 02/02/18 0219 MR#: [id number] Acct: [id number] Name: NEGRITO BUSTAMANTE Rep #: [id number] : 1985 32 From: Jaclyn Rizo MD PCP: Cherri Patiño MD Status: REG ER ED Disposition - Plan for ED Patient: Chief Complaint: Abd Pain Instructions: ED Abdominal Pain Unkn Cause Prescriptions: Ondansetron [Zofran Odt] 4 mg PO Q8H PRN PRN #10 tablet PRN Reason: Nausea Dicyclomine HCl [Bentyl] 20 mg PO TIDAC #20 capsule Clindamycin [Cleocin] 300 mg PO 4X/DAY #80 capsule Referrals: Cherri Patiño MD [Primary Care Provider] - What to do if you have Problems For any increased pain, shortness of breath, bleeding, nausea or vomiting, chest pain, or any unexpected problems, contact your Primary Care Provider. Call [facility] ([phone]) or report to the closest Emergency Room. Call 911 if necessary. 02/02/18 0219 <Electronically signed by Jaclyn Rizo MD> Date Jaclyn Rizo MD Cosigner Signature (If Indicated): Date CC: Cherri Patiño MD EMERGENCY DEPARTMENT Observed: 02/02/2018 Status: F Source: [place] SUMMARY 2:19 AM [facility] Medical Records Department [address] [place] [address] Emergency Department Summary 02/01/18 2238 MR#: [id number] Acct: [id number] Name: NEGRITO BUSTAMANTE Rep #: [id number] : 1985 32 From: Jaclyn Rizo MD PCP: Cherri Patiño MD Status: REG ER - ER Visit Summary Date of Service: 02/01/18 Chief Complaint: Abdominal pain History of Present Illness: The patient is a 32 F presenting with bilateral lower quadrant abdominal pain. She states this started 4 days ago. She was seen in the ED 2 days ago. She states she had blood work done and was discharged. She continues to have severe pain in the bilateral lower abdomen. She has nausea with no vomiting. She had diarrhea 2 days ago but no diarrhea today. She has history of previous cholecystectomy and tubal ligation. She is a smoker. She denies fever. Physical Examination: Vitals are stable. Patient is afebrile. Alert no acute distress. HEENT exam is unremarkable. Neck is supple. Lungs are clear and equal bilaterally. Heart is regular rate and rhythm. Abdomen is soft obese, bilateral lower quadrant tenderness with no rebound or guarding. Erythema surrounding the umbilicus with no fluctuance. Skin is warm and dry. No focal neurologic deficit. Remainder of exam is unremarkable. Emergency Department Course and Treatment: Patient given morphine, Zofran. CBC shows white count 12.6, hemoglobin 10.6. Chemistries unremarkable except potassium 3.4. Urinalysis unremarkable. HCG negative. CT abdomen pelvis with IV and oral contrast shows no acute process. She is given clindamycin for abdominal wall cellulitis. She is given a prescription for Bentyl and Zofran. Advised return to ED for worsening complaints. Advised to follow-up with primary care physician. Disposition: Discharge home Impression: Abdominal pain, abdominal wall cellulitis This note was generated with OurStory dictation software. It may contain incorrect words, spelling, and punctuation that were not noted in review of the chart prior to signing ED Disposition - Plan for ED Patient: Chief Complaint: Abd Pain Referrals: Cherri Patiño MD [Primary Care Provider] - What to do if you have Problems For any increased pain, shortness of breath, bleeding, nausea or vomiting, chest pain, or any unexpected problems, contact your Primary Care Provider. Call [facility] ([phone]) or report to the closest Emergency Room. Call 911 if necessary. 02/02/18 0219 <Electronically signed by Jaclyn Rizo MD> Date Jaclyn Rizo MD Cosigner Signature (If Indicated): Date CC: Cherri Patiño MD CBC W/DIFF, AUTOMATED Collected: 02/01/2018 Status: F Source: [place] 10:45 PM [facility] TYPE CODE TESTS RESULT OUT OF RANGE REFERENCE UNITS LAB L100.1000 4.4-11.0 K/mm3 High WBC 12.6 LAB L100.1200 4.2-5.4 M/mm3 Normal RBC 4.67 LAB L100.1300 12.0-15.0 g/dl Low HGB 10.6 LAB L100.1400 37-47 % Low HCT 33.4 LAB L100.1500 81-99 fL Low MCV 71.5 LAB L100.1600 27.0-32.0 pg Low MCH 22.7 LAB L100.1700 32-36 g/gl Low MCHC 31.7 LAB L100.1810 11.6-14.6 % High RDW CV 20.6 LAB L100.1820 35.1-43.9 fl High RDW SD 52.2 LAB L100.1900 150-450 K/mm3 Normal PLT 347 LAB L100.2000 6.2-12.0 fl Normal MPV 10.4 LAB L100.2100 47-70 % Normal NEUT% 67.3 LAB L100.2200 19-41 % Normal LY% 21.6 LAB L100.2300 0-10 % Normal MONO% 7.0 LAB L100.2400 0-5 % Normal EO% 3.7 LAB L100.2500 0-1 % Normal BASO% 0.2 LAB L100.2550 0.0-0.9 % Normal IM GRAN % 0.200 Result Comment: IG% - Immature Granulocytes (promyelocytes, myelocytes and metamyelocytes) > 1% indicates that a LEFT SHIFT is Present. LAB L100.2620 2.0-7.7 X10 3/uL Absolute Neut High 8.5 LAB L100.2720 0.83-4.51 X10 3/ul Absolute Lymph Normal 2.73 LAB L100.4500 SMEAR COMMENT Normal SCAN LAB L100.7300 ANISO Normal 1+ LAB L100.7500 POLYCHROMASIA Normal 1+ LAB L100.7600 HYPOCHROMASIA Normal 1+ LAB L100.7700 MICROCYTES Normal 1+ Performed By: #### L100.0100 #### [facility] [address] [place], [address] BASIC METABOLIC Collected: 02/01/2018 Status: F Source: [place] PROFILE (BMP) 10:45 PM [facility] TYPE CODE TESTS RESULT OUT OF RANGE REFERENCE UNITS LAB L501.0100 74-106 mg/dL Normal GLU 89 Result Comment: Please note revised GLUCOSE reference range effective 2017. LAB L501.1000 7-18 mg/dL Low BUN 4 LAB L501.1100 0.55-1.02 mg/dL Low CREAT,SERUM 0.52 Result Comment: The validity of the calculated GFR AND GFRAA in patients over 70 years has not been determined. Clinical correlation is essential. LAB L501.1110 >60 mL/min Normal EST GFR 147 Result Comment: Non- GFR Calc LAB L501.1115 >60 mL/min Normal EST GFR - AA 178 Result Comment: GFR Calc LAB L501.1255 ml/min Normal Estimated CRCL 171.07 LAB L501.1300 10-20 RATIO Low BUN/CRE 7.7 LAB L501.2200 8.5-10 mg/dL .1 CA Normal 9.0 LAB L501.5300 136-14 mmol/L 5 NA Normal 137 LAB L501.5600 3.5-5. mmol/L Low 1 K 3.4 LAB L501.5900 98-107 mmol/L CL Normal 105 LAB L501.6100 21.0-3 mmol/L 2.0 CO2 Normal 28.0 LAB L501.6200 5-15 Low GAP 4 Performed By: #### L500.2500 #### [facility] [address] [place], [address] ,SERUM,HCG QUALI. Collected: Status: F Source: [place] 02/01/2018 10:45 PM [facility] TYPE CODE TESTS RESULT OUT OF REFERENCE UNITS RANGE LAB L700.7000 0-9 Nonpreg Negative Normal HCGSQUAL NEGATIVE LAB L700.6700 =>Qualitative mIU/mL Normal HCG Qual < 1 triggr Performed By: #### L700.6800 #### [facility] [address] [place], [address] ABDOMEN/PELVIS WITH Observed: 02/01/2018 Status: F Source: [place] CONTRAST 10:37 PM [facility] Imaging Services [address] [place] [address] Abdomen/Pelvis WITH Contrast MR#: [id number] Acct: [id number] Name: NEGRITO BUSTAMANTE Rep #: [id number] : 1985 F 32 From: Kami Stapleton MD PCP: Cherri Patiño MD Status: REG ER Study: Abdomen/Pelvis WITH Contrast Date of Exam: 02/02/18 Exam# [id number] Ordering Dr: Jaclyn Rizo MD STUDY: CT ABDOMEN AND PELVIS WITH CONTRAST REASON FOR EXAM: Female, 32 years old. PERSISTENT ABD PAIN X 4 DAYS WITH N/D, REDNESS AROUND UMBILICAL REGION, HX TUBAL LIGATION, COPD, [place], [place] RADIATION DOSAGE (If Supplied By Facility): CTDIvol = ( 21.96 ) mGy, DLP = ( 1846.80 ) mGycm TECHNIQUE: Transaxial images were obtained from the dome of the diaphragm to the symphysis pubis without oral contrast. 100ML ml of Isovue 300 contrast was administered. Sagittal and coronal images were reconstructed. Individualized dose optimization techniques were used for this CT. COMPARISON: None. FINDINGS: The visualized lung bases are unremarkable. The visualized portions of the heart are within normal limits. Normal liver. Normal gallbladder and extrahepatic biliary system. Normal spleen. Normal pancreas. Normal bilateral adrenal glands. Normal right kidney. Normal left kidney. Normal visualized stomach. Normal small intestine. Normal colon. The appendix is visualized and appears normal. Normal abdominal aorta. Normal inferior vena cava. Normal retroperitoneum. Normal urinary bladder. Normal abdominal wall. Normal osseous structures. CT/Abdomen/Pelvis WITH Contrast IMPRESSION: Normal enhanced CT of the abdomen and pelvis. Electronically Signed: Kami Stapleton MD at 2:08 EDT Tel , Service support , CC: Jaclyn Rizo MD; Cherri Patiño MD Form Worker: Signed URINALYSIS, COMPLETE Collected: 02/01/2018 Status: F Source: [place] 10:20 PM [facility] Order Comment: How was Urine Obtained? CLEAN CATCH TYPE CODE TESTS RESULT OUT OF RANGE REFERENCE UNITS LAB L400.3000 Yellow COLOR Normal Yellow LAB L400.3050 Clear Normal CLARITY Clear LAB L400.3200 Normal mg/dl Normal GLUCOSE, UR Normal LAB L400.3300 Negative mg/dL Normal BILIRUBIN URINE Negative LAB L400.3400 Negative mg/dl Normal KETONE UR Negative LAB L400.3465 1.002-1.030 Normal SP.GR. DIPSTX 1.010 LAB L400.3550 5.0 - 8.0 pH UR Normal 8.0 LAB L400.3600 Negative mg/dl PROT Normal DIPSTX Negative LAB L400.3700 Normal mg/dl Normal UROBILI Normal LAB L400.3750 Negative Normal NITRITE UR Negative LAB L400.3780 Negative /ul Normal OCCULT BLOOD-UR Negative LAB L400.3800 Negative /ul LEUK Normal ESTERASE Negative LAB L400.4050 0-5 /hpf WBC 0 Normal SEEN LAB L400.4100 0-5 /hpf 0 Normal RBC-UA SEEN LAB L400.4150 5-10 /hpf SQUAM Normal EPI 0-5 SEEN LAB L400.4300 None Seen /hpf 0 Normal BACTERIA SEEN LAB L400.4350 <or=2+ /hpf 0 Normal MUCUS, URINE SEEN Performed By: #### L400.0001 #### [facility] [address] [place], [address] INTERNAL MEDICINE Observed: 02/01/2018 Status: F Source: [place] OFFICE VISIT 11:21 AM [facility] [address] [place] [address] [place] [address] OFFICE VISIT Date of Service: 01/30/18 MR#: [id number] Acct: [id number] Name: NEGRITO BUSTAMANTE Rep #: [id number] : 1985 Provider: Blaine Gage NP Age/Sex: 32/F Location: [facility] Status: Signed Intake Vital Signs01/30/18 Height 5 ft 10 in 01/30/18 Weight: 351 lb 01/30/18 Body Mass Index (BMI) 50.3 01/30/18 Blood Pressure 113/80 Intake Visit Reasons: back pain req. [place] Chief Complaint: back pain, swelling all over Is patient in pain?: Yes (stomach) Pain scale (1-10): 9 Allergies ceftriaxone sodium [From Rocephin] Allergy (Verified 01/30/18 21:10) Hives tramadol Allergy (Verified 01/30/18 21:10) Hives bupropion HCl [From Wellbutrin] Adverse Reaction (Verified 01/30/18 21:10) MAKES ANXIETY WORSE Medications Albuterol Inhaler [Ventolin Hfa] 1 - 2 puff INHALATION Q6H PRN PRN #1 inhaler 09/26/17 [Rx Confirmed 01/30/18] cyclobenzaprine 10 mg tablet 10 mg PO TID PRN #60 tab 01/02/18 [Rx Confirmed 01/30/18] gabapentin 100 mg capsule 100 mg PO QHS #30 cap 01/02/18 [Rx Confirmed 01/30/18] lorazepam 1 mg tablet 1 mg PO QHS PRN 01/02/18 [History Confirmed 01/30/18] hydrochlorothiazide 12.5 mg capsule 12.5 mg PO QAM #30 cap 01/30/18 [Rx Confirmed 01/30/18] PFSH Medical History Obesity (Chronic) Chronic low back pain (Chronic) Kidney stones (Chronic) Anxiety (Chronic) Anemia (Acute) Panic attacks (Acute) Bipolar depression manic phase (Chronic) COPD (chronic obstructive pulmonary disease) (Chronic) Hydocephalus (Chronic) Surgical History D AND C (Acute) History of 3 sections (Acute) History of bilateral tubal ligation (Acute) History of cholecystectomy (Acute) History of tonsillectomy (Acute) left ankle ligament repair (Acute) Family History Grandmother Asthma Thyroid disorder Mother Asthma Thyroid disorder COPD (chronic obstructive pulmonary disease) Aunt Asthma Heart disease Hypertension Thyroid disorder Emphysema, unspecified Grandfather Asthma Diabetes Hypertension Hyperlipidemia COPD (chronic obstructive pulmonary disease) Social History Smoking Status: Current every day smoker alcohol intake: never substance use type: does not use what type of physical activity do you participate in: walking frequency: daily HPI HPI Chief Complaint: back pain, swelling all over Details: NEGRITO BUSTAMANTE, is a 32 F who presents to the office today for an acute visit of swelling all over and swelling in her abdomen x 1 month. She has a past medical history as listed above. The patient states that over the past couple of weeks she has noted that her hands and lower extremities have become swollen. She states that her lower extremities are so swollen that it causes her pain while she walks. She states that she is retaining fluid and the fluid is going into her abdomen which is causing her intermittent sharp pain as well. She does note that she has gained 10 pounds in the last month and is concerned that her weight gain is due to fluid retention. She notes that she also has shortness of breath at times while laying down flat on her back. She is requesting a letter for work limiting the amount of unnecessary walking that she has to do due to the heaviness in her legs from the edema. She is also requesting to have blood work done to check to see if she has lupus, she states that she gets joint pain on and off and that she has a strong family history of lupus as well. She continues to complain of chronic low back pain which she is seen pain management for. She otherwise denies any fever, chills, nausea, vomiting, chest pain or pressure, syncope or presyncopal episodes. ROS Const Constitutional: No chills, fatigue, fever(s), frequent falls, malaise, weakness, sleep problems or change in appetite Eyes Eyes: No blurry vision, change in vision, double vision, discharge or visual disturbances ENT ENT: No abnormal hearing, ear pain, ear pressure, tinnitus or dizziness/vertigo Resp Respiratory: Positive for shortness of breath; no cough or wheezing Cardio Cardiology: Positive for shortness of breath, dyspnea on exertion and generalized swelling; no chest pain at rest, chest pain with exertion, irregular heart rhythm, lightheadedness, orthopnea, fast heart rate or palpitations Gastro GI: Positive for abdominal pain; no change in bowel habits, constipation, diarrhea, nausea/dyspepsia or vomiting Genitourinary-Female: No difficulty urinating, burning urination, painful urination, urinary incontinence, urinary frequency, urinary urgency, urinary hesitancy, urinary retention, Frequent nighttime urination/ nocturia, sexual problems, genital lesions, abnormal vaginal bleeding, pelvic pain, vaginal dryness, vaginal odor or Vaginal Itching Musc Musculoskeletal: No joint pain, back pain, joint swelling, limited range of motion, muscle weakness, numbness or tingling Skin Skin: No change in skin color, itching, rash or wounds Breast Breast: No breast lump or breast pain Neuro Neurology: No frequent falls, weakness, abnormal hearing, numbness, tingling, unsteady gait/balance, dizziness, loss of vision, memory loss or visual disturbances Psych Psychiatric: No memory loss, No anxiety, No change in appetite, No depression, No Thoughts of harming yourself/Others Endo Endocrine: No fatigue, heat intolerance, increased thirst/drinking, increased hunger or increased urination Aller/Imm Allergy/Immunologic: No wheezing, itchy eyes or seasonal allergy symptoms Clif/Lymp Hematologic/Lymphatic: No easy bleeding, easy bruising or enlarged lymph nodes Exam Const General: cooperative, comfortable, no acute distress Nutritional Appearance: average body habitus, well nourished Orientation: alert, oriented x3 Limitations: mental status not altered Resp Effort AND Inspection: normal respiratory effort Auscultation: Bilateral: Diminished Lung Sounds, Inspiratory Wheezes, Expiratory Wheezes Cardio Palpation: normal PMI Rate: regular rate Heart Sounds: S1 normal, S2 normal, normal S1 and S2, no click, no gallops, no murmurs, no rubs GI Inspection: other (obese) Auscultation: normal bowel sounds Percussion: normal to percussion Palpation: nontender, no guarding, not firm, soft, no masses Other: All abdominal quadrants were nontender on exam during palpation while patient was distracted and provider was asking questions, however when specifically addressing her abdominal pain all quadrants became very tender to palpation. No edema or masses appreciated in abdomen General: No CVA tenderness Musc Musculoskeletal: No muscle weakness Skin General: no rashes or lesions noted, elasticity normal, turgor normal Lesions: no lesions Rashes: no rashes Extrem General: edema Laterality: bilateral (Generalized bilateral lower extremity edema) Psych Appearance: grossly normal Mental Status: mental status grossly normal Affect: normal affect Attitude: cooperative Thought Process: normal Assessment AND Plan 1. Bilateral lower extremity edema R60.0 Plan Patient is persistent that her weight gain is due to fluid retention and that this is causing her to have pain in her lower extremities while walking. Negative Homans sign and no calf tenderness on exam. Did discuss with her in detail about her generalized edema is most likely related to her poor dietary choices and could be related to her sodium intake as well. Patient requesting to be on a medication to help her reduce the swelling her legs. Will trial her on low-dose 12.5 mg hydrochlorothiazide daily. Discussed that this may impact her electrolytes and will recheck a electrolyte panel in 2 weeks. Given the fact that she has lower extremity edema and orthopnea, will check a BNP as well. Discussed with patient that I will not write restrictions for her work, however I will write a letter to take into consideration her medical conditions in limiting any unnecessary walking. Orders Orders: 2. Generalized abdominal pain R10.84 Plan Patient has had ongoing intermittent abdominal pain, on exam when the provider was asking the patient questions, no abdominal tenderness was appreciated on palpation. However, when directly addressing the abdominal pain, tenderness was noted in all quadrants. Did discuss with patient that if the abdominal pain becomes severe she needs to seek emergent medical attention. She has had CTs of the abdomen and pelvis in the past which were normal, will follow in the future and may need to consider psychological causes of her abdominal pain 3. Joint pain M25.50 Plan Per patient request an JUAN was ordered as patient is deeply concerned that she may have lupus. Discussed with her that this is a nonspecific test. Patient is still persistent that should be checked for lupus Plan Detail Other Orders Orders: Other Medications New: Follow Up 2 weeks or sooner if needed Coding Level of Care Code Off vis,est,level 3 Diagnoses Bilateral lower extremity edema R60.0 Generalized abdominal pain R10.84 Abdominal location: generalized Joint pain M25.50 02/01/18 1121 <Electronically signed by Blaine PERLA> Date Blaine PERLA Cosigner Signature: Date (if applicable) CC: EMERGENCY DEPARTMENT Observed: 01/30/2018 Status: F Source: [place] SUMMARY 11:22 PM [facility] Medical Records Department [address] [place] [address] Emergency Department Summary 01/30/18 2317 MR#: [id number] Acct: [id number] Name: NEGRITO BUSTAMANTE Rep #: [id number] : 1985 32 From: Nirmal Chandra MD PCP: Cherri Patiño MD Status: REG ER - ER Visit Summary Date of Service: 01/30/18 Chief Complaint: Severe abdominal pain that started 2 days ago History of Present Illness: The patient is a 32 F who presents with severe bilateral lower abdominal pain started 2 days ago. She states it is aching. This is associated with nausea and vomiting. Upon further questioning was determined that she has chronic nausea vomiting and her nausea vomiting is been intermittent. She reports one loose stool today. She denies any contacts with ill friends. She has not been on antibiotics last month. She denies ingestion anything that may have tasted unusual to her. She is status post bilateral tubal ligation and cholecystectomy. Review of prior records reveals history of chronic abdominal pain of unknown cause, diarrhea of unknown cause and intermittent nausea vomiting of unknown cause. Past surgical history bilateral tubal ligation cholecystectomy. There is a history of depression. 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 Hayes that she will continue to have abnormal menses. She has no symptoms of i.e. breast fullness, tenderness, frequency or urgency. She has not had any weight gain. Physical Examination: Vital signs are remarkable for a heart rate 103. BMI is 50. Head is atraumatic normocephalic. Pupils are equal round reactive. Extraocular muscles are intact. TMs are pearly white with landmarks noted. Nares patent with no drainage. Posterior pharynx without erythema or exudate. Uvula is midline. There is no dysphonia or dysphasia. Trachea is midline. There is no stridor with auscultation of the neck. Heart is regular without murmur, gallop or rub. S1 and S2 are normal. Lungs are clear to auscultation with good movement of air bilaterally. Abdomen is remarkable for tenderness when I place my stethoscope on her abdomen for auscultation. She complains of severe pain prior to any pressure. There is no CVA tenderness noted. There is no dermatologic lesions noted. She has a depressed affect. Neuro exam is nonfocal. Test Results: BMP is unremarkable. UA is unremarkable. Emergency Department Course and Treatment: It is my professional medical opinion the patient's abdominal pain has a non-organic cause. She has been instructed to follow-up with her doctor and discuss possible causes. Treatment Plan: Discharged home with appropriate home-going instructions Disposition: Discharge to home and follow-up with her physician Impression: 1. Bilateral lower quadrant abdominal pain of unknown etiology 2. Chronic intermittent nausea and vomiting 3. Abnormal bowel movement This note was generated with [employer] dictation software. It may contain incorrect words, spelling, and punctuation that were not noted in review of the chart prior to signing ED Disposition - Plan for ED Patient: Disposition: Home or Assisted Living Chief Complaint: Abd Pain Instructions: ED Abdominal Pain Unkn Cause Referrals: Cherri Patiño MD [Primary Care Provider] - 3-5 Days if not improving () What to do if you have Problems For any increased pain, shortness of breath, bleeding, nausea or vomiting, chest pain, or any unexpected problems, contact your Primary Care Provider. Call [facility] ([phone]) or report to the closest Emergency Room. Call 911 if necessary. 01/30/182321 <Electronically signed by Nirmal Chandra MD> Date Nirmal Chandra MD Cosigner Signature (If Indicated): Date CC: Cherri Patiño MD URINALYSIS, COMPLETE Collected: 01/30/2018 Status: F Source: [place] 9:50 PM [facility] Order Comment: Order Date: 01/30/18 Has pt arrived? Y How was Urine Obtained? CLEAN CATCH TYPE CODE TESTS RESULT OUT OF RANGE REFERENCE UNITS LAB L400.3000 Yellow COLOR Normal YELLOW LAB L400.3050 Clear Normal CLARITY Sl. Cloudy LAB L400.3200 Normal mg/dl Normal GLUCOSE, UR Normal LAB L400.3300 Negative mg/dL Normal BILIRUBIN URINE Negative LAB L400.3400 Negative mg/dl Normal KETONE UR Negative LAB L400.3465 1.002-1.030 Normal SP.GR. DIPSTX 1.010 LAB L400.3550 5.0 - 8.0 pH UR Normal 7.0 LAB L400.3600 Negative mg/dl PROT Normal DIPSTX Negative LAB L400.3700 Normal mg/dl Normal UROBILI Normal LAB L400.3750 Negative Normal NITRITE UR Negative LAB L400.3780 Negative /ul Normal OCCULT BLOOD-UR Negative LAB L400.3800 Negative /ul LEUK Normal ESTERASE Negative LAB L400.4050 0-5 /hpf WBC 0 Normal SEEN LAB L400.4100 0-5 /hpf 0 Normal RBC-UA SEEN LAB L400.4150 5-10 /hpf SQUAM Normal EPI 0-5 SEEN LAB L400.4300 None Seen /hpf 0 Normal BACTERIA SEEN LAB L400.4350 <or=2+ /hpf 0 Normal MUCUS, URINE SEEN Performed By: #### L400.0001 #### [facility] [address] [place], [address] BASIC METABOLIC Collected: 01/30/2018 Status: F Source: [place] PROFILE ([facility]) 9:38 PM [facility] TYPE CODE TESTS RESULT OUT OF RANGE REFERENCE UNITS LAB L501.0100 74-106 mg/dL Normal GLU 96 Result Comment: Please note revised GLUCOSE reference range effective 2017. LAB L501.1000 7-18 mg/dL Low BUN 6 LAB L501.1100 0.55-1.02 mg/dL Low CREAT,SERUM 0.54 Result Comment: The validity of the calculated GFR AND GFRAA in patients over 70 years has not been determined. Clinical correlation is essential. LAB L501.1110 >60 mL/min Normal EST GFR 139 Result Comment: Non- GFR Calc LAB L501.1115 >60 mL/min Normal EST GFR - AA 168 Result Comment: GFR Calc LAB L501.1255 ml/min Normal Estimated CRCL 164.73 LAB L501.1300 10-20 RATIO BUN/CRE Normal 11.0 LAB L501.2200 8.5-10 mg/dL .1 CA Normal 8.8 LAB L501.5300 136-14 mmol/L 5 NA Normal 139 LAB L501.5600 3.5-5. mmol/L 1 K Normal 4.0 LAB L501.5900 98-107 mmol/L CL Normal 106 LAB L501.6100 21.0-3 mmol/L 2.0 CO2 Normal 29.0 LAB L501.6200 5-15 Low GAP 4 Performed By: #### L500.2500 #### [facility] [address] [place], [address] INTERNAL MEDICINE Observed: 01/03/2018 Status: F Source: [place] OFFICE VISIT 1:35 PM [facility] [address] [place] [address] OFFICE VISIT Date of Service: 01/02/18 MR#: [id number] Acct: [id number] Name: NEGRITO BUSTAMANTE Rep #: [id number] : 1985 Provider: Blaine Gage NP Age/Sex: 32/F Location: [facility] Status: Signed Intake Vital Signs01/03/18 Body Mass Index (BMI) 48.9 01/03/18 Blood Pressure 110/64 01/02/18 Height 5 ft 10 in Intake Visit Reasons: BACK ISSUES NEED TO TALK TO [place] Chief Complaint: back pain Allergies ceftriaxone sodium [From Rocephin] Allergy (Verified 12/25/17 21:49) Hives tramadol Allergy (Verified 12/25/17 21:49) Hives bupropion HCl [From Wellbutrin] Adverse Reaction (Verified 12/25/17 21:49) MAKES ANXIETY WORSE Medications Albuterol Inhaler [Ventolin Hfa] 1 - 2 puff INHALATION Q6H PRN PRN #1 inhaler 09/26/17 [Rx Confirmed 12/25/17] ipratropium-albuterol 0.5 mg-3 mg(2.5 mg base)/3 mL nebulization soln 3 ml INHALATION Q6H PRN #180 ml 10/06/17 [Rx Confirmed 12/25/17] cyclobenzaprine 10 mg tablet 10 mg PO TID PRN #60 tab 01/02/18 [Rx Confirmed 01/02/18] gabapentin 100 mg capsule 100 mg PO QHS #30 cap 01/02/18 [Rx Confirmed 01/02/18] lorazepam 1 mg tablet 1 mg PO QHS PRN 01/02/18 [History Confirmed 01/02/18] PFSH Medical History Obesity (Chronic) Chronic low back pain (Chronic) Kidney stones (Chronic) Anxiety (Chronic) Anemia (Acute) Panic attacks (Acute) Bipolar depression manic phase (Chronic) COPD (chronic obstructive pulmonary disease) (Chronic) Hydocephalus (Chronic) Surgical History D AND C (Acute) History of 3 sections (Acute) History of bilateral tubal ligation (Acute) History of cholecystectomy (Acute) History of tonsillectomy (Acute) left ankle ligament repair (Acute) Family History Grandmother Asthma Thyroid disorder Mother Asthma Thyroid disorder COPD (chronic obstructive pulmonary disease) Aunt Asthma Heart disease Hypertension Thyroid disorder Emphysema, unspecified Grandfather Asthma Diabetes Hypertension Hyperlipidemia COPD (chronic obstructive pulmonary disease) Social History Smoking Status: Current every day smoker alcohol intake: never substance use type: does not use what type of physical activity do you participate in: walking frequency: daily HPI HPI Chief Complaint: back pain Details: NEGRITO BUSTAMANTE, is a 32 F who presents to the office today for an acute visit of worsening back pain. She has a past medical history as listed above. The patient is currently being seen for her chronic low back pain with radiculopathy to the right lower extremity by pain management. She is using a TENS unit without much relief. She has been seen by multiple pattern painter and an MRI was done in August 2017 which demonstrated L4-5 annular bulge with a small central disc herniation of the protrusion type. Patient notes that she has been seen and evaluated by physical therapy and chiropractic services are well without much relief. She continues to have ongoing pain and is requesting additional pain medication and also a refill of her muscle relaxants. The patient otherwise denies any fever, chills, nausea, vomiting, shortness of breath, chest pain or pressure, palpitations, orthopnea, lower extremity edema, syncope or presyncopal episodes. ROS Const Constitutional: No body ache, chills, fatigue, change in appetite, abnormal sleep pattern or excessive sweating Eyes Eyes: No blurry vision or change in vision ENT ENT: No ear pain, ear pressure or abnormal hearing Resp Respiratory: No cough, change in phlegm color or chest congestion Cardio Cardiology: No chest pain at rest, chest pain with exertion, shortness of breath or excessive sweating Gastro GI: No abdominal pain, bloating or change in bowel habits Genitourinary-Female: No difficulty urinating, burning urination or painful urination Musc Musculoskeletal: Positive for back pain; no abnormal walking Skin Skin: No change in hair, nail changes or itching Neuro Neurology: No abnormal walking, abnormal hearing, abnormal movements, confusion or behavioral changes Psych Psychiatric: No change in appetite, No confusion, No abnormal sleep pattern, No lack of enjoyment, No anxiety, No behavioral changes Endo Endocrine: No fatigue, change in body appearance, cold intolerance or excessive sweating Aller/Imm Allergy/Immunologic: No food intolerance, itchy eyes or seasonal allergy symptoms Exam Const General: cooperative, comfortable, no acute distress Nutritional Appearance: average body habitus, well nourished Orientation: alert, oriented x3 Limitations: mental status not altered [facility] Head: normal to inspection Ears: hearing grossly normal bilaterally Nose: external nose normal Eyes General: appearance normal, both eyes and all related structures Resp Effort AND Inspection: normal respiratory effort, able to speak in complete sentences, no audible wheezes, no cough, normal respiratory pattern, symmetric chest movement, no respiratory distress, no pursed lip breathing, no stridor, not tachypneic, no tracheal deviation, prolonged expiratory phase Cardio Palpation: normal PMI Rate: regular rate Heart Sounds: S1 normal, S2 normal, normal S1 and S2, no click, no gallops, no murmurs, no rubs GI Inspection: normal to inspection Auscultation: normal bowel sounds, no hyperactive bowel sounds, no hypoactive bowel sounds Palpation: soft, no hepatosplenomegaly Musc Musculoskeletal: No decreased ROM Other: Tenderness noted over lumbar and thoracic spinous processes extending to bilateral low back region, full range of motion present. Strength intact bilateral lower extremities, sensation intact bilateral lower extremities as well. Skin General: no rashes or lesions noted, elasticity normal, turgor normal Lesions: no lesions Rashes: no rashes Neuro General: alert, awake, oriented x3, CN's II-XI intact bilaterally Speech: speech normal Gait: normal gait Motor: muscle tone normal throughout Psych Appearance: grossly normal Mental Status: mental status grossly normal Affect: normal affect Attitude: cooperative Thought Process: normal Assessment AND Plan Problems 1. Chronic low back pain M54.5; G89.29 2. Right lumbar radiculopathy M54.16 Plan The patient does complain of continuous chronic low back pain that is interfering with her ability to work. She states that she is unable to work at a job where she is sitting down because this aggravates her pain that shoots into her right leg and that she is unable to work standing up and walking around due to the pain. She is currently being seen by pain management and has been seen by physical therapy in the past as well. The patient will continue seeing pain management at this time. She is out of her muscle relaxant, a refill of her cyclobenzaprine was given to her. Given her radiculopathy and numbness and tingling to the right lower extremity, will trial her on gabapentin. Her most recent MRI demonstratedL4-5 annular bulge with a small central disc herniation of the protrusion type. Given the patient's continued pain and the fact that she has been seen by physical therapy and pain management, will refer to OrthO spine surgeon for consultation. Patient did also request a letter stating that due to her chronic pain she is unable to hold a job down and therefore should be excused from working in an excuse from pain child support. Discussed with the patient that given the fact that she is under pain management, this decision will have to be made from her pattern painter. Did inform patient as well that since she is in contract with pain management, I will be unable to give her controlled substance from this office. Hopefully, the gabapentin will help with her neuropathic pain as well Orders Referrals: Medications New: Discontinued: Plan Detail Follow Up 1 month for routine Coding Level of Care Code Off vis,est,level 3 Diagnoses Chronic low back pain M54.5; G89.29 Sciatica laterality: sciatica laterality unspecified Right lumbar radiculopathy M54.16 01/03/18 1335 <Electronically signed by Blaine PERLA> Date Blaine PERLA Cosigner Signature: Date (if applicable) CC: EMERGENCY DEPARTMENT Observed: 12/26/2017 Status: F Source: [place] SUMMARY 2:20 AM [facility] Medical Records Department [address] [place] [address] Emergency Department Summary 12/25/17 2243 MR#: [id number] Acct: [id number] Name: NEGRITO BUSTAMANTE Rep #: [id number] : 1985 32 From: Veronika Lea MD PCP: Cherri Patiño MD Status: DEP ER - ER Visit Summary Date of Service: 12/25/17 Chief Complaint: Headache History of Present Illness: The patient is a 32 F who presents for severe headache for the last 4 hours. Patient states she was grocery shopping when she suddenly felt like someone hit her on the top of the head with a sledgehammer. She then had a metallic taste in her mouth. The symptoms subsided after a few minutes but have occurred 17 times since then, each time feeling like she is being hit on the head with a sledgehammer followed by a metallic taste. She has diminished left peripheral vision with some of the episodes. She has dull headache in between the episodes. No fever, numbness or weakness in the arms or legs, abdominal pain, neck pain. History of anxiety, depression, chronic back pain, and a prior diagnosis of hydrocephalus that has resolved. Physical Examination: Vital signs: afebrile, hemodynamically stable, no hypoxia on room air General: well nourished, well developed, in no distress, laying in bed with the lights off but tolerates them on Skin: warm, dry, no rash, no pallor HEENT: normocephalic and atraumatic, and redness to palpation of the left scalp, no rash, no trauma noted, no temporal artery tenderness, no vesicles noted; PERRL, EOMI, nystagmus, no visual field deficits noted, moist mucous membranes Cardiovascular: tachycardic rate and rhythm without murmurs, no peripheral edema, 2+ pulses all distal extremities Respiratory: No increased work of breathing, lungs are clear to auscultation bilaterally, no rales, rhonchi or wheezing Abdominal: Abdomen is soft, nontender with normoactive bowel sounds, no guarding or rebound, no masses MSK: Moves all extremities, no deformities, normal strength Neuro: Awake and alert, oriented 4. No facial droop, sensation and motor function intact and symmetric Test Results: Clinical Impression(s) from Imaging Studies Brain CT 12/25/17 22:41 IMPRESSION: Stable examination without evidence of acute intracranial abnormality by noncontrast CT. at 0012 Reported and signed by: Subha Valentin MD Electronically Signed: Subha Valentin MD at 0:10 EDT Tel , Service support , Emergency Department Course and Treatment: Patient presents with intermittent sensation of someone hitting her on the head with a sledgehammer, followed by a metallic taste in her mouth. In these episodes she has a dull headache. The symptoms are not consistent with a subarachnoid hemorrhage. Patient has no active neuro deficits associated with her headache on examination. Patient was given a migraine cocktail and IV fluids, and had improvement of her headache. Given her history of hydrocephalus, CT scan of the head was performed and showed no intracranial hemorrhage, mass lesions or other acute process. Patient was reevaluated and was sleeping. She stated her headache had improved but was still present. She had no further episodes of the sledgehammer sensation. Patient did have left-sided scalp tenderness diffusely, but her headache was not originating from the occipital region that might be indicative of occipital neuralgia. Patient was given a prescription for naproxen for further headache treatment. She is to follow-up with her primary care doctor. Given the metallic taste associated with her headache, this may be migraine headaches. She was discharged home with return precautions. Treatment Plan: [] Disposition: [] Impression: Cephalgia This note was generated with Our[employer] dictation software. It may contain incorrect words, spelling, and punctuation that were not noted in review of the chart prior to signing ED Disposition - Plan for ED Patient: Disposition: Home or Assisted Living Chief Complaint: Headache Instructions: ED Cephalgia Unspecified Prescriptions: Naproxen [Naprosyn] 500 mg PO BID PRN #20 tab Referrals: Cherri Patiño MD [Primary Care Provider] - 1-2 Days if not improving What to do if you have Problems For any increased pain, shortness of breath, bleeding, nausea or vomiting, chest pain, or any unexpected problems, contact your Primary Care Provider. Call [facility] ([phone]) or report to the closest Emergency Room. Call 911 if necessary. 12/26/17219 <Electronically signed by Veronika Lea MD> Date Veronika Lea MD Cosigner Signature (If Indicated): Date CC: Cherri Patiño MD DISCHARGE INSTRUCTION Observed: 12/26/2017 Status: F Source: [place] 2:20 AM [facility] Medical Records Department [address] [place] [address] Discharge Instruction 12/26/17 003 MR#: [id number] Acct: [id number] Name: NEGRITO BUSTAMANTE Romana Rep #: [id number] : 1985 32 From: Veronika Lea MD PCP: Cherri Patiño MD Status: DEP ER ED Disposition - Plan for ED Patient: Disposition: Home or Assisted Living Chief Complaint: Headache Instructions: ED Cephalgia Unspecified Prescriptions: Naproxen [Naprosyn] 500 mg PO BID PRN #20 tab Referrals: Cherri Patiño MD [Primary Care Provider] - 1-2 Days if not improving What to do if you have Problems For any increased pain, shortness of breath, bleeding, nausea or vomiting, chest pain, or any unexpected problems, contact your Primary Care Provider. Call [facility] ([phone]) or report to the closest Emergency Room. Call 911 if necessary. 12/26/17219 <Electronically signed by Veronika Lea MD> Date Veronika Mancillaer Signature (If Indicated): Date CC: Cherri Patiño MD BRAIN/HEAD WITHOUT Observed: 12/25/2017 Status: F Source: [place] [facility] 10:42 PM [facility] Imaging Services [address] [place] [address] Brain/Head without Contrast MR#: [id number] Acct: [id number] Name: NEGRITO BUSTAMANTE Rep #: [id number] : 1985 F 32 From: Subha Valentin MD PCP: Cherri Patiño MD Status: REG ER Study: Brain/Head without Contrast Date of Exam: 12/25/17 Exam# [id number] Ordering Dr: Veronika Lea MD CT Head or Brain W/O Contrast INDICATION: HEADACHE-LT SIDED HEAD PAIN THAT COMES AND GOES AND LEAVES A METAL TASTE IN HER MOUTH,PT WAS SHIELDEDHX:ASTHMA,COPD,BIPOLAR,MIGRAINES,HYDROCEPHALUS A CHILD COMPARISON: February 07, 2017 TECHNIQUE: Noncontrast axial CT examination of the brain. Radiation dose optimization applied. FINDINGS: The ventricular system is normal in size and symmetric. The cortical sulci, sylvian fissures, and basal cisterns are well seen. The kent- white matter junction is distinct. There is no evidence of acute intracranial hemorrhage, mass effect, midline shift, or abnormal extra- axial collection. The calvarium is intact and the visualized paranasal sinuses and mastoid air cells are clear. CT/Brain/Head without Contrast IMPRESSION: Stable examination without evidence of acute intracranial abnormality by noncontrast CT. at 0012 Reported and signed by: Subha Valentin MD Electronically Signed: Subha Valentin MD at 0:10 EDT Tel , Service support , CC: Cherri Patiño MD; Veronika Lea MD Form Worker: Signed CT HEAD OR BRAIN W/O Observed: 10/20/2017 Status: F Source: [facility] 8:50 PM [facility] REPOSITORY ORIGINAL CT HEAD OR BRAIN W/O CONTRAST Clinical Statement: Pain; trauma patient fall, headache TECHNIQUE: Axial CT images from skull base to vertex without IV contrast. This exam was performed according to our departmental dose optimization program, including but not limited to: automated exposure control, adjustment of the mAs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 Please see T- sheet for details. TEST RESULTS: The patient had a CBC that is remarkable for white count of 13.8 with a normal differential, H and H of 10.0 and 32.0. Chem-7 is remarkable for calcium of 8.4. LFTs remarkable for an albumin of 3.1, lipase is normal. CT of the abdomen and pelvis p.o. and IV contrast shows post-surgical changes and a few gas bubbles in the deep subcutaneous tissues of the anterior abdominal wall, but no fluid collection. EMERGENCY DEPARTMENT COURSE: The patient was treated with morphine, Zofran and Phenergan IV. An OARRS report was obtained. She had a prescription for 30 Percocet on July 23. In the remainder of the year she has only had 5 prescriptions for opiates. TREATMENT PLAN: The patient discussed with Dr. Portillo, who looked at the CAT scan herself and suspect that the patient's worsening pain is from her constipation. She will be discharged with prescription for 20 more Percocet, magnesium citrate and instructed to drink half the bottle and if she does not have a bowel movement in 6 hours she should drink the other half of the bottle. If following having a bowel movement she continues to have pain, she needs to call Dr. Josue and followup in the office. If her pain is relieved she needs to follow up with him in 5 days as previously scheduled. DISPOSITION: Home, stable condition. IMPRESSION: 1. Four days status post cholecystectomy. 2. Constipation. Romeo Morton MD C C: Giovanni Patiño MD T: NTS JOB: [id number] 08/10/17 0126 <Electronically signed by Romeo Morton MD> Date Romeo Morton MD Cosigner Signature (If Indicated): Date CC: Giovanni Josue MD; Cherri Patiño MD; Ida Patiño M.D. Date Dictated: 07/27/17241 Date Transcribed: 07/27/17 024 Form Worker: Signed SURGERY VISIT REPORT Observed: 08/03/2017 Status: F Source: [place] 8:18 AM [facility] [address] [place] [address] OFFICE VISIT Date of Service: 08/01/17 MR#: [id number] Acct: [id number] Name: NEGRITO BUSTAMANTE Rep #: [id number] : 1985 Provider: Vanessa Tolbert PA-C Age/Sex: 32/F Location: [facility] Status: Signed Intake Intake Visit Reasons: f/u gallbladder surgery, wound might be open [employer] Required: No Is patient in pain?: Yes Pain scale (1-10): 5 Allergies ceftriaxone sodium [From Rocephin] Allergy (Verified 08/01/17 14:06) Hives tramadol Allergy (Verified 08/01/17 14:06) Hives bupropion HCl [From Wellbutrin] Adverse Reaction (Verified 08/01/17 14:06) MAKES ANXIETY WORSE Medications Doxepin HCl 50 mg PO QHS PRN 07/21/17 [History Confirmed 08/01/17] citalopram 10 mg tablet 20 mg PO QDAY 07/21/17 [History Confirmed 08/01/17] lorazepam 0.5 mg tablet 0.5 mg PO DAILY PRN 07/21/17 [History Confirmed 08/01/17] Senna/Docusate Sodium [Senokot-S] 2 tab PO BID PRN #60 tab 07/23/17 [Rx Confirmed 08/01/17] Magnesium Citrate [Citrate Of Magnesia] 300 ml PO X1 #300 ml 07/26/17 [Rx Confirmed 08/01/17] PFSH Medical History Abdominal pain (Acute) Depression (Chronic) Nausea AND vomiting (Acute) Acute cholecystitis (Acute) Obesity (Chronic) Chronic low back pain (Chronic) Kidney stones (Chronic) Anxiety (Chronic) Anemia (Acute) Panic attacks (Acute) Bipolar depression manic phase (Chronic) COPD (chronic obstructive pulmonary disease) (Chronic) Hydocephalus (Chronic) Asthma exacerbation (Inactive) Chronic back pain (Inactive) Concussion (Inactive) Constipation (Inactive) Gastritis (Inactive) Menorrhagia (Inactive) Postoperative lower abdominal pain (Inactive) URI (upper respiratory infection) (Inactive) URI (upper respiratory infection) (Inactive) Surgical History D AND C (Acute) History of 3 sections (Acute) History of bilateral tubal ligation (Acute) History of cholecystectomy (Acute) History of tonsillectomy (Acute) left ankle ligament repair (Acute) Family History Grandmother Asthma Thyroid disorder Mother Asthma Thyroid disorder COPD (chronic obstructive pulmonary disease) Aunt Asthma Heart disease Hypertension Thyroid disorder Emphysema, unspecified Grandfather Asthma Diabetes Hypertension Hyperlipidemia COPD (chronic obstructive pulmonary disease) Social History Smoking Status: Heavy Smoker (>10/day) alcohol intake: never substance use type: does not use what type of physical activity do you participate in: walking frequency: daily HPI HPI HPI: Patient is a 32 y/o female I am following for right upper quadrant pain. Dr. Josue performed a laparoscopic cholecystectomy on 07/23/2017. Patient tolerated the procedure well. Pathology demonstrated chronic cholecystitis with calculus. Patient notes umbilical incisional discomfort. She notes some nausea. She denies vomiting. Exam Const General: cooperative, healthy appearing, comfortable, no acute distress GI Inspection: normal to inspection, large pannus, incision (c/d/i. No erythema or infection noted) Palpation: soft Auscultation: normal bowel sounds Assessment AND Plan Problems 1. Acute cholecystitis K81.0 Plan Follow-up as needed No pain medication was given 08/03/1718 <Electronically signed by Vanessa Tolbert PA-C> Date Vanessa Tolbert PA-C Cosigner Signature: Date (if applicable) CC: ALLERGIES ALLERGIES DATE TYPE / CODE NAME / CODE REACTION SEVERITY SOURCE 06/19/2018 Drug bupropion MAKES ANXIETY Unknown [place] Allergy/416 HCl/[id number](RXN WORSE [address]) Repository 06/19/2018 Drug ceftriaxone Hives Unknown [place] Allergy/416 sodium/[id number]( [address]) Repository 06/19/2018 Drug tramadol/[id number] Hives Unknown [place] Allergy/416 0(RXNORM) [address]) Repository ENCOUNTERS ENCOUNTERS ADMIT/DISCHARGE ACCOUNT NUMBER ADMITTING ENCOUNTER LOCATION SOURCE CLASS 07/19/2018 [id number] Ambulatory [facility] ding:POLAB3 Repository 07/09/2018 [id number] Ambulatory [facility] ding:PSN Repository 06/19/2018/06/19/20 [id number] Emergency [address] ding:ED Repository 06/04/2018 [id number] [facility] ding:SL Repository 05/21/2018 [id number] [facility] ding:LAB.FUT Repository URE 05/17/2018 [id number] Ambulatory [facility] ding:PSN Repository 05/15/2018 [id number] Ambulatory [facility] ding:PSN Repository 05/13/2018/05/13/20 [id number] Emergency [address] ding:ED Repository 04/25/2018 [id number] Ambulatory [facility] ding:SL Repository 04/25/2018 [id number] Ambulatory [facility] ding:POLAB3 Repository 04/19/2018 [id number] Ambulatory [facility] ding:POLAB3 Repository 04/17/2018/04/17/20 [id number] Ambulatory BMSBuilding: [place] 18 [facility] Repository 04/11/2018 [id number] Ambulatory BMSBuilding: [place] [facility] Repository 04/10/2018/04/12/20 [id number] Svitlana Chicas Inpatient [place] [facility] ding:[id number] Repository : UY243Bok: 1 04/10/2018 [id number] Svitlana Chicas Ambulatory BMSBuilding: [place] Mer BMS.[facility] Repository 04/10/2018 [id number] Svitlana Chicas Ambulatory BMSBuilding: [place] BMS.[facility] Repository 04/10/2018 [id number] Svitlana Chicas Ambulatory BMSBuilding: [place] Mer BMS.[facility] Repository 04/10/2018 [id number] Ambulatory [facility] ding:RAD Repository 04/10/2018/04/10/20 [id number] Ambulatory BMSBuilding: [place] 18 BMS.[facility] Repository 04/04/2018/04/04/20 [id number] Ambulatory BMSBuilding: [place] 18 BMS.[facility] Repository 03/27/2018 [id number] Ambulatory [facility] ding:LAB Repository 03/27/2018/03/27/20 [id number] Ambulatory BMSBuilding: [place] 18 BMS.[facility] Repository 03/26/2018 [id number] Ambulatory BMSBuilding: [place] BMS.[facility] Repository 03/12/2018/03/12/20 [id number] Emergency [address] ding:ED Repository 03/10/2018/03/10/20 [id number] Emergency [place] ding:ED Repository 03/09/2018/03/09/20 [id number] Emergency [place] ding:ED Repository 03/06/2018/03/06/20 [id number] Ambulatory [address] ding:OT Repository 02/02/2018/02/03/20 [id number] Emergency BBuilding:ER [address] Repository 02/01/2018/02/03/20 [id number] Emergency [address] ding:ED Repository 01/30/2018/01/31/20 [id number] Emergency [address] ding:ED Repository 01/30/2018/01/31/20 [id number] Ambulatory BMSBuilding: [place] 18 BMS.[facility] Repository 01/19/2018 [id number] Ambulatory [facility] Repository ng:H.PM 01/02/2018/01/03/20 [id number] Ambulatory BMSBuilding: [place] 18 BMS.[facility] Repository 12/25/2017/12/27/19 [id number] Emergency [address] ding:ED Repository 11/23/2017 [id number] Ambulatory [facility] Repository ng:H.PM 10/26/2017 [id number] Ambulatory [facility] ding:PSN Repository 10/20/2017/10/21/19 [id number] Emergency BBuilding:ER [address] Repository 10/19/2017 [id number] Ambulatory BMSBuilding: [place] BMS.[facility] Repository 10/13/2017/10/14/19 [id number] Emergency BBuilding:ER [place] 18 Count Includes [facility] Repository 10/13/2017/10/14/19 [id number] Emergency [address] ding:ED Repository 10/07/2017/10/08/19 [id number] Emergency BBuilding:ER [place] 18 Count Includes [facility] Repository 10/06/2017 [id number] Ambulatory [facility] ding:MTRAD Repository 10/06/2017/10/06/19 [id number] Ambulatory BMSBuilding: [place] 18 [facility] Repository 10/05/2017 [id number] Ambulatory [facility] Repository ng:H.PM 09/28/2017/09/28/19 [id number] Emergency [address] ding:ED Repository 09/26/2017/09/26/19 [id number] Emergency [address] ding:ED Repository 09/19/2017/09/19/19 [id number] Emergency [address] ding:ED Repository 09/12/2017/09/12/19 [id number] Emergency [address] ding:ED Repository 08/23/2017 [id number] Ambulatory [facility] ding:MRI Repository 08/21/2017/08/21/19 [id number] Emergency [place] ding:ED Repository 08/13/2017/08/13/20 [id number] Emergency BBuilding:ER [place] 17 Count Includes [facility] Repository 08/01/2017/08/01/20 [id number] Ambulatory BMSBuilding: [place] 17 [facility] Repository 07/26/2017/07/26/20 [id number] Emergency [address] ding:ED Repository PAYERS PAYERS ENCOUNTER GUARANTOR PAYER SUBSCRIBER SOURCE 07/19/2018 NEGRITO Avendano Primary NEGRITO L [place] [id number] [place] Insurance:CARESOURCEP HAYNESDOB: [facility] Number: [id number] Hospital [address]Ewq: [phone] [id number] Repository [phone] () Date:2018-07-19 [address]ATTN: [place] [address]TN: 07/19/2018 Secondary NOT GIVENUNK [place] Insurance:SELF PAY [facility] Number: Effective Repository Date:2018-07-19 07/09/2018 NEGRITO L Primary NEGRITO L [place] [id number] [place] Insurance:CARESOURCEP HAYNESDOB: [facility] Number: [id number] Hospital [address]Hsr: [phone]) [id number] Repository [phone] () Date:2018-07-09 [address]ATTN: [place] [address]HF: 07/09/2018 Secondary NOT GIVENUNK [place] Insurance:SELF PAY [facility] Number: Effective Repository Date:2018-07-09 06/19/2018 NEGRITO L Primary NEGRITO L [place] [id number] [place] Insurance:CARESOURCEP HAYNESDOB: [facility] Number: [id number] [facility] 10[address]Qps: [phone]) [id number] Repository [phone] () Date:2018-06-19 [address]ATTN: [place] [address]GL: 06/19/2018 Secondary NOT GIVENUNK [place] Insurance:SELF PAY [facility] Number: Effective Repository Date:2018-06-19 06/04/2018 NEGRITO L Primary NEGRITO L [place] [id number] [place] Insurance:CARESOURCEP HAYNESDOB: [facility] Number: [id number] Hospital [address]Uxt: [phone]) [id number] Repository [phone] (HP) Date:2018-05-10 [address]ATTN: [place] [address]FE: 06/04/2018 Secondary NOT GIVENUNK [place] Insurance:SELF PAY [facility] Number: Effective Repository Date:2018-05-10 05/21/2018 NEGRITO L Primary NEGRITO L [place] [id number] [place] Insurance:CARESOURCEP HAYNESDOB: [facility] Number: [id number] Hospital [address]94[address]Nqy: [phone] [id number] Repository [phone] (HP) Date:2018-04-26P [address]N: [place] [address]QG: 05/21/2018 Secondary NOT GIVENUNK [place] Insurance:SELF PAY [facility] Number: Effective Repository Date:2018-04-26 05/17/2018 NEGRITO L Primary NEGRITO L [place] [id number] [place] Insurance:CARESOURCEP HAYNESDOB: [facility] Number: [id number] Hospital [address]Mye: [phone]) [id number] Repository [phone] (HP) Date:2018-04-17 [address]ATTN: [place] [address]ER: 05/17/2018 Secondary NOT GIVENUNK [place] Insurance:SELF PAY [facility] Number: Effective Repository Date:2018-04-17 05/15/2018 NEGRITO L Primary NEGRITO L [place] [id number] [place] Insurance:CARESOURCEP HAYNESDOB: [facility] Number: [id number] Hospital [address]Qek: [phone]) [id number] Repository [phone] (HP) Date:2018-04-17P [address]ATTN: [place] [address]TP: 05/15/2018 Secondary NOT GIVENUNK [place] Insurance:SELF PAY [facility] Number: Effective Repository Date:2018-04-17 05/13/2018 NEGRITO L Primary NEGRITO L [place] [id number] [place] Insurance:CARESOURCEP HAYNESDOB: [facility] Number: [id number] Hospital [address]Hrf: [phone]) [id number] Repository [phone] () Date:2018-05-13P [address]ATTN: [place] [address]VE: 05/13/2018 Secondary NOT GIVENUNK [place] Insurance:SELF PAY [facility] Number: Effective Repository Date:2018-05-13 04/25/2018 NEGRITO L Primary NEGRITO L [place] [id number] [place] Insurance:CARESOURCEP HAYNESDOB: [facility] Number: [id number] Hospital [address]Pqb: ([phone]) [id number] Repository [phone] () Date:2018-04-18 [address]: [place] [address]AJ: 04/25/2018 Secondary NOT GIVENUNK [place] Insurance:SELF PAY [facility] Number: Effective Repository Date:2018-04-18 04/25/2018 NEGRITO L Primary NEGRITO L [place] [id number] [place] Insurance:CARESOURCEP HAYNESDOB: [facility] Number: [id number] Hospital [address]Nqm: [phone] [id number] Repository [phone] () Date:2018-04-25 [address]ATTN: [place] [address]SO: 04/25/2018 Secondary NOT GIVENUNK [place] Insurance:SELF PAY [facility] Number: Effective Repository Date:2018-04-25 04/19/2018 NEGRITO L Primary NEGRITO L [place] [id number] [place] Insurance:CARESOURCEP HAYNESDOB: [facility] Number: [id number] Hospital [address]Sjc: (252) [id number] Repository [phone] () Date:2018-04-19 [address]ATTN: [place] [address]OM: 04/19/2018 Secondary NOT GIVENUNK [place] Insurance:SELF PAY [facility] Number: Effective Repository Date:2018-04-19 04/17/2018 NEGRITO L Primary NEGRITO L [place] [id number] [place] Insurance:CARESOURCEP HAYNESDOB: [facility] Number: [id number] Hospital [address]Xkd: ([phone]) [id number] Repository [phone] () Date:2018-04-13 [address]N: [place] [address]DO: 04/17/2018 Secondary NOT GIVENUNK [place] Insurance:SELF PAY [facility] Number: Effective Repository Date:2018-04-13 04/11/2018 NEGRITO L Primary NEGRITO L [place] [id number] [place] Insurance:CARESOURCEP HAYNESDOB: [facility] Number: [id number] Hospital [address]Tzc: 850 [id number] Repository [phone] () Date:2016-12-12 [address]ATTN: [place] [address]BN: 04/11/2018 Secondary NOT GIVENUNK [place] Insurance:SELF PAY [facility] Number: Effective Repository Date:2018-04-11 04/10/2018 NEGRITO L Primary NEGRITO L [place] [id number] [place] Insurance:CARESOURCEP HAYNESDOB: [facility] Number: [id number] Hospital [address]Ayd: [phone] [id number] Repository [phone] () Date:2016-12-12 [address]ATTN: [place] [address]OE: 04/10/2018 Secondary NOT GIVENUNK [place] Insurance:SELF PAY [facility] Number: Effective Repository Date:2018-04-10 04/10/2018 NEGRITO L Primary NEGRITO L [place] [id number] [place] Insurance:CARESOURCEP HAYNESDOB: [facility] Number: [id number] Hospital [address]Vsu: ([phone]) [id number] Repository [phone] () Date:2018-04-10P [address]ATTN: [place] [address]JB: 04/10/2018 Secondary NOT GIVENUNK [place] Insurance:SELF PAY [facility] Number: Effective Repository Date:2018-04-10 04/10/2018 NEGRITO L Primary NEGRITO L [place] [id number] [place] Insurance:CARESOURCEP HAYNESDOB: [facility] Number: [id number] Hospital [address]Xvh: 850 [id number] Repository [phone] () Date:2016-12-12P [address]ATTN: [place] [address]QK: 04/10/2018 Secondary NOT GIVENUNK [place] Insurance:SELF PAY [facility] Number: Effective Repository Date:2018-04-10 04/10/2018 NEGRITO L Primary NEGRITO L [place] [id number] [place] Insurance:CARESOURCEP HAYNESDOB: [facility] Number: [id number] [facility] 6[address]Gxl: (122) [id number] Repository [phone] () Date:2016-12-12[address]ATTN: [place] [address]KK: 04/10/2018 Secondary NOT GIVENUNK N[place] Insurance:SELF PAY [facility] Number: Effective Repository Date:2018-04-10 04/10/2018 NEGRITO L Primary NEGRITO L [place] [id number] [place] Insurance:CARESOURCEP HAYNESDOB: [facility] Number: [id number] Hospital 38163Grl: [phone]) [id number] Repository [phone] () Date:2018-04-10[address]ATTN: [place] [address]GA: 04/10/2018 Secondary NOT GIVENUNK N[place] Insurance:SELF PAY [facility] Number: Effective Repository Date:2018-04-10 04/10/2018 NEGRITO L Primary NEGRITO L [place] [id number] [place] Insurance:CARESOURCEP HAYNESDOB: [facility] Number: [id number] Hospital [address]121Tvf: [phone]) [id number] Repository [phone] () Date:2018-04-09[address]ATTN: [place] [address]MX: 04/10/2018 Secondary NOT GIVENUNK [place] Insurance:SELF PAY [facility] Number: Effective Repository Date:2018-04-10 04/04/2018 NEGRITO L Primary NEGRITO L [place] [id number] [place] Insurance:CARESOURCEP HAYNESDOB: [facility] Number: [id number] Hospital 09761Tqg: ([phone]) [id number] Repository [phone] () Date:2018-04-03 [address]ATTN: [place] [address]FD: 04/04/2018 Secondary NOT GIVENUNK [place] Insurance:SELF PAY [facility] Number: Effective Repository Date:2018-04-04 03/27/2018 NEGRITO L Primary NEGRITO L [place] [id number] [place] Insurance:CARESOURCEP HAYNESDOB: [facility] Number: [id number] Hospital [address]Mnr: ([phone]) [id number] Repository [phone] () Date:2018-03-27 [address]ATTN: [place] [address]PM: 03/27/2018 Secondary NOT GIVENUNK [place] Insurance:SELF PAY [facility] Number: Effective Repository Date:2018-03-27 03/27/2018 NEGRITO L Primary NEGRITO L [place] [id number] [place] Insurance:CARESOURCEP HAYNESDOB: [facility] Number: [id number] Hospital [address]Vfm: [phone]) [id number] Repository [phone] () Date:2018-03-26[address]ATTN: [place] [address]ZT: 03/27/2018 Secondary NOT GIVENUNK [place] Insurance:SELF PAY [facility] Number: Effective Repository Date:2018-03-26 03/26/2018 NEGRITO L Primary NEGRITO L [place] [id number] [place] Insurance:CARESOURCEP HAYNESDOB: [facility] Number: [id number] Hospital 86499Igh: [phone]) [id number] Repository [phone] () Date:2018-03-26[address]ATTN: [place] [address]KD: 03/26/2018 Secondary NOT GIVENUNK [place] Insurance:SELF PAY [facility] Number: Effective Repository Date:2018-03-26 03/12/2018 NEGRITO L Primary NEGRITO L [place] [id number] [place] Insurance:CARESOURCEP HAYNESDOB: [facility] Number: [id number] Hospital 87499Kao: [phone]) [id number] Repository [phone] () Date:2018-03-12[address]ATTN: [place] [address]ME: 03/12/2018 Secondary NOT GIVENUNK [place] Insurance:SELF PAY [facility] Number: Effective Repository Date:2018-03-12 03/10/2018 NEGRITO L Primary NEGRITO L [place] [id number] [place] Insurance:CARESOURCEP HAYNESDOB: [facility] Number: [id number] Hospital [address]342Jsk: ([phone]) [id number] Repository [phone] () Date:2018-03-10[address]ATTN: [place] [address]DN: 03/10/2018 Secondary NOT GIVENUNK [place] Insurance:SELF PAY [facility] Number: Effective Repository Date:2018-03-10 03/09/2018 NEGRITO L Primary NEGRITO L [place] [id number] [place] Insurance:CARESOURCEP HAYNESDOB: [facility] Number: [id number] Hospital [address]Txo: [phone]) [id number] Repository [phone] () Date:2018-03-09[address]ATTN: [place] [address]FX: 03/09/2018 Secondary NOT GIVENUNK [place] Insurance:SELF PAY [facility] Number: Effective Repository Date:2018-03-09 03/06/2018 NEGRITO L Primary NEGRITO L [place] [id number] [place] Insurance:CARESOURCEP HAYNESDOB: [facility] Number: [id number] Hospital [address]Gfb: [phone]) [id number] Repository [phone] () Date:2016-12-12[address]ATTN: [place] [address]ZP: 03/06/2018 Secondary NOT GIVENUNK [place] Insurance:SELF PAY [facility] Number: Effective Repository Date:2018-02-09 02/02/2018 NEGRITO L Primary NEGRITO L [facility] HAYNESDOB: Insurance:CARESOURCE HAYNESDOB: [facility] [id number] MEDICAIDPolicy [id number] Repository [place] Number: [place] [id number] [place] [address]Xrr: (212) Date:2018-02-02 11924Qne: () [id number] [id number] Name:MARIA ISABELO Deepa ()Tel: [phone], [place] [address] () [address]XC: 02/01/2018 NEGRITO L Primary NEGRITO L [place] [id number] [place] Insurance:CARESOURCEP HAYNESDOB: [facility] Number: [id number] Hospital [address]Xlh: ([phone]) [id number] Repository [phone] () Date:2018-02-01 [address]ATTN: [place] [address]MM: 02/01/2018 Secondary NOT GIVENUNK [place] Insurance:SELF PAY [facility] Number: Effective Repository Date:2018-02-01 01/30/2018 NEGRITO L Primary NEGRITO L [place] [id number] [place] Insurance:CARESOURCEP HAYNESDOB: [facility] Number: [id number] Hospital [address]86[address]Dmo: 850 [id number] Repository [phone] () Date:2018-01-30 [address]ATTN: [place] [address]OV: 01/30/2018 Secondary NOT GIVENUNK [place] Insurance:SELF PAY [facility] Number: Effective Repository Date:2018-01-30 01/30/2018 NEGRITO L Primary NEGRITO L [place] [id number] [place] Insurance:CARESOURCEP HAYNESDOB: [facility] Number: [id number] Hospital 57791Eff: [phone]) [id number] Repository [phone] () Date:2018-01-26 [address]ATTN: [place] [address]BW: 01/30/2018 Secondary NOT GIVENUNK [place] Insurance:SELF PAY [facility] Number: Effective Repository Date:2018-01-30 01/19/2018 NEGRITO Primary NEGRITOGRISELDA [facility] [id number] [place] Insurance:[facility] Number: Repository 18[address]Jaf: 850 [id number] [phone] () Date:2016-12-12[address] [place] [address]FX: 01/02/2018 NEGRITO L Primary NEGRITO L [place] [id number] [place] Insurance:CARESOURCEP HAYNESDOB: [facility] Number: [id number] Hospital [address]Dvr: 850 [id number] Repository [phone] () Date:2017-12-25[address]ATTN: [place] [address]VJ: 01/02/2018 Secondary NOT GIVENUNK [place] Insurance:SELF PAY [facility] Number: Effective Repository Date:2018-01-02 12/25/2017 NEGRITO L Primary NEGRITO L [place] [id number] [place] Insurance:CARESOURCEP HAYNESDOB: [facility] Number: [id number] Hospital 320[address]Mnd: [id number] Repository [phone] () Date:2017-12-25 [address]ATTN: [place] [address]YK: 12/25/2017 Secondary NOT GIVENUNK [place] Insurance:SELF PAY [facility] Number: Effective Repository Date:2017-12-25 11/23/2017 NEGRITO Primary [facility]O [facility] [id number] [place] Insurance:[facility] Number: Repository [address]Ctv: [phone]) [id number] [phone] () Date:2016-12-12[address], [place] [address]PC: 10/26/2017 NEGRITO L Primary NEGRITO L [place] [id number] [place] Insurance:CARESOURCEP HAYNESDOB: [facility] Number: [id number] Hospital [address]Ioj: [phone]) [id number] Repository [phone] () Date:2017-10-06 [address]ATTN: [place] [address]VF: 10/26/2017 Secondary NOT GIVENUNK [place] Insurance:SELF PAY [facility] Number: Effective Repository Date:2017-10-06 10/20/2017 NEGRITO L Primary NEGRITO [facility] HAYNESDOB: Insurance:CARESOURCE HAYNESDOB: [facility] [id number] MEDICAIDPolicy [id number] Number: [place], [place] [id number] [place] [address]Vwz: (437) Date:2017-10-20 73117Uwn: () [id number] [phone] Name:[address] ()Tel: 000 [address], [place] [address] () [address]NQ: 10/19/2017 NEGRITO L Primary NEGRITO L [place] [id number] [place] Insurance:CARESOURCEP HAYNESDOB: [facility] Number: [id number] Hospital 85[address]Yny: [phone]) [id number] Repository [phone] () Date:2017-10-05 [address]ATTN: [place] [address]FL: 10/19/2017 Secondary NOT GIVENUNK [place] Insurance:SELF PAY [facility] Number: Effective Repository Date:2017-10-05 10/13/2017 NEGRITO L Primary NEGRITO [facility]CARESOURCE HAYNESDOB: [facility] MEDICAIDPolicy [id number] Repository [place] Number: [place] [id number] [place]PRES[place] [place] [address]Pfq: (850) Date:2017-10-13 90726Vjl: () [id number] [phone] Name:[address] ()Tel: [phone]) [phone] [address] (WP) [address]IA: 10/13/2017 NEGRITO L Primary NEGRITO L [place] [id number] [place] Insurance:CARESOURCEP IROQUOISDOB: [facility] Number: [id number] Hospital 285[address]Edk: ([phone]) [id number] Repository [phone] () Date:2017-10-13 [address]ATTN: [place] [address]AQ: 10/13/2017 Secondary NOT GIVENUNK [place] Insurance:SELF PAY [facility] Number: Effective Repository Date:2017-10-13 10/07/2017 NEGRITO L Primary NEGRITO [facility] HAYNESDOB: Insurance:CARESOURCE IROQUOISDOB: [facility] MEDICAIDPolicy [id number] Repository [place] Number: [place] [id number] [place], [place] [address]Daf: (850) Date:2017-10-07 784[address]Wbm: () [id number] [phone] Name:[address] ()Tel: [phone]) [phone] [address] (WP) [address]QX: 10/06/2017 NEGRITO L Primary NEGRITO L [place] [id number] [place] Insurance:CARESOURCEP BYRONNESDOB: [facility] Number: [id number] Hospital [address]Pnp: [phone]) [id number] Repository [phone] (HP) Date:2017-10-06 [address]ATTN: [place] [address]LJ: 10/06/2017 Secondary NOT GIVENUNK [place] Insurance:SELF PAY [facility] Number: Effective Repository Date:2017-10-06 10/06/2017 NEGRITO L Primary NEGRITO L [place] [id number] [place] Insurance:CARESOURCEP [facility] Number: [id number] Hospital [address]Dha: ([phone]) [id number] Repository [phone] () Date:2017-10-06 [address]ATTN: [place] [address]RK: 10/06/2017 Secondary NOT GIVENUNK [place] Insurance:SELF PAY [facility] Number: Effective Repository Date:2017-10-06 10/05/[address] [facility] [id number] [place] Insurance:[facility] Number: Repository [address]Uhc: [phone]) [id number] [phone] () Date:2016-12-12[address] [place] [address]VX: 09/28/2017 NEGRITO L Primary NEGRITO L [place] [id number] [place] Insurance:CARESOURCEP [facility]: [id number] Hospital 133[address]Ttj: ([phone]) [id number] Repository [phone] () Date:2017-09-28[address]ATTN: [place] [address]SC: 09/28/2017 Secondary NOT GIVENUNK [place] Insurance:SELF PAY [facility] Number: Effective Repository Date:2017-09-28 09/26/2017 NEGRITO L Primary NEGRITO L [place] [id number] [place] Insurance:CARESOURCEP HAYNESDOB: [facility] Number: [id number] Hospital [address]Wbh: ([phone]) [id number] Repository [phone] () Date:2017-09-26[address]ATTN: [place] [address]KJ: 09/26/2017 Secondary NOT GIVENUNK [place] Insurance:SELF PAY [facility] Number: Effective Repository Date:2017-09-26 09/19/2017 NEGRITO L Primary NEGRITO L [place] [id number] [place] Insurance:CAR[employer]OURCEP HAYNESDOB: [facility] Number: [id number] Hospital 859[address]Pqe: ([phone]) [id number] Repository [phone] () Date:2017-09-19[address]ATTN: [place] [address]DP: 09/19/2017 Secondary NOT GIVENUNK [place] Insurance:SELF PAY [facility] Number: Effective Repository Date:2017-09-19 09/12/2017 NEGRITO L Primary NEGRITO L [place] [id number] [place] Insurance:CAR[employer]OURCEP HAYNESDOB: [facility] Number: [id number] Hospital [address]Gen: ([phone]) [id number] Repository [phone] () Date:2017-09-12[address]ATTN: [place] [address]GO: 09/12/2017 Secondary NOT GIVENUNK [place] Insurance:SELF PAY [facility] Number: Effective Repository Date:2017-09-12 08/23/2017 NEGRITO L Primary NEGRITO L [place] [id number] [place] Insurance:CAR[employer]OURCEP HAYNESDOB: [facility] Number: [id number] Hospital [address]Lss: ([phone]) [id number] Repository [phone] () Date:2017-08-16 [address]N: [place] [address]EY: 08/23/2017 Secondary NOT GIVENUNK [place] Insurance:SELF PAY [facility] Number: Effective Repository Date:2017-08-16 08/21/2017 NEGRITO L Primary NEGRITO L [place] [id number] [place] Insurance:CAR[employer]OURCEP HAYNESDOB: [facility] Number: [id number] Hospital 17[address]Yfg: ([phone]) [id number] Repository [phone] () Date:2017-08-21 [address]ATTN: [place] [address]LZ: 08/21/2017 Secondary NOT GIVENUNK [place] Insurance:SELF PAY [facility] Number: Effective Repository Date:2017-08-21 08/13/2017 NEGRITO L Primary [facility]O L [facility] Insurance:CARESOURCE HAYNESDOB: [facility] [id number] MEDICAIDPolicy [id number] Number: [place], [place] [id number] [place] [address]Dzp: (760) Date:2017-08-13 17091Bbo: () [id number] [phone] Name:[address] ()Tel: [phone]) [address], [place] [address] () [address]LB: 08/01/2017 NEGRITO L Primary NEGRITO L [place] [id number] [place] Insurance:CAR[employer]OURCEP HAYNESDOB: [facility] Number: [id number] Hospital [address]90[address]Iab: ([phone]) [id number] Repository [phone] () Date:2017-08-01 [address]ATTN: [place] [address]MJ: 08/01/2017 Secondary NOT GIVENUNK [place] Insurance:SELF PAY [facility] Number: Effective Repository Date:2017-08-01 07/26/2017 NEGRITO Avendano Primary NEGRITO ANDRE [place] Insurance:SHRUTISOAROLDO COLVINB: [facility] Number: [id number] Hospital 10[address]Drd: ([phone]) [id number] Repository [phone] () Date:2017-07-26[address]ATTN: [place] [address]UI: 07/26/2017 Secondary NOT GIVENUNK [place] Insurance:SELF PAY [facility] Number: Effective Repository Date:2017-07-26
== END ==
PROVIDERS: Family Provider Family Medicine Geriatric Medicine; PCP Family Medicine Geriatric Medicine; Referring Provider Family Medicine Geriatric Medicine; Visit Provider Family Medicine Geriatric Medicine
DX: R68.83 Chills (without fever) (principal)
CPT/HCPCS: 87633

== ENCOUNTER → 2018-07-19 13:53 | Outpatient (CLI) | payer MEDICAID, SELFPAY ==
[2018-07-09 16:11] VITALS: BMI 48.0
[2018-07-19 16:55] LABS: Absolute Lymphocyte Count 2.67 X10^3/ul (0.83-4.51); Absolute Neutrophil Count 10.2 X10^3/uL (2.0-7.7); Basophil# 0.03 X10^3/uL; Basophil% 0.2 % (0-1); Eosinophil# 0.28 X10^3/uL; Hematocrit 31.7 % (37-47); Hemoglobin 9.5 g/dl (12.0-15.0); Lymphocyte # 2.67 X10^3/ul (4.0); Lymphocyte % 19.1 % (19-41); Mean Corpuscular Hgb 21.4 pg (27.0-32.0); Mean Corpuscular Volume 71.4 fL (81-99); Monocyte# 0.72 X10^3/uL; Monocyte% 5.1 % (0-10); Neutrophil # 10.23 X10^3/uL (2.7-7.7); Neutrophil % 73.1 % (47-70); Platelet Count 360 K/mm3 (150-450); RBC Distribution Width CV 21.1 % (11.6-14.6); RBC Distribution Width SD 52.6 fl (35.1-43.9); Red Blood Count 4.44 M/mm3 (4.2-5.4)
[2018-07-19 16:59] LABS: Differential Indicated SCAN CRITERIA MET; POSITIVE COUNT NO; POSITIVE DIFFERENTIAL NO; POSITIVE MORPHOLOGY YES
[2018-07-19 17:09] LABS: ALB/GLOB Ratio 0.7 RATIO (0.9-2.4); AST(SGOT) 9 U/L (15-37); Alanine Aminotransfer ALT/SGPT 21 U/L (13-56); Alkaline Phosphatase 95 U/L (45-117); Anion Gap 7 (5-15); BUN 7 mg/dL (7-18); BUN/Creat Ratio 12.8 RATIO (10-20); Calcium,Total 8.7 mg/dL (8.5-10.1); Chloride 106 mmol/L (98-107); Creatinine, Serum 0.55 mg/dL (0.55-1.02); EST Glomerular Filtration Rate 138 mL/min (>60); Est Glom Filt Rate - Afr Amer 166 mL/min (>60); Globulin 4.1 g/dL (2.2-4.2); Glucose 96 mg/dL (74-106); Potassium 4.2 mmol/L (3.5-5.1); Protein, Total 7.1 g/dL (6.4-8.2); Sodium Level 141 mmol/L (136-145); Thyroid Stim Hormone (TSH) 8.01 uIU/mL (0.358-3.74)
[2018-07-19 17:16] LABS: Anisocytosis 1+; Hypochromasia 2+; Microcytosis 1+; Platelet Estimate ADEQUATE (ADEQ); Polychromasia RARE; Target Cells RARE; Toxic Granulation RARE
== END ==
PROVIDERS: Family Provider Family Medicine Geriatric Medicine; PCP Family Medicine Geriatric Medicine; Visit Provider Family Medicine Geriatric Medicine
DX: R53.83 Other fatigue (principal)
CPT/HCPCS: 36415; 80053; 84443; 85025

== ENCOUNTER 2018-08-05 13:41 | Emergency (ER) | payer MEDICAID, SELFPAY ==
[2018-07-09 16:11] VITALS: BMI 48.0
[2018-08-05 13:42] VITALS: BP 123/90; PULSE 109; RESP 16; TEMP 36.8; O2SAT 97; BMI 47.3
--- NOTE | 2018-08-05 14:02 | CT_ITS ---
STUDY: CT BRAIN WITHOUT CONTRAST REASON FOR EXAM: Female, 33 years old. Hit head on car door RADIATION DOSAGE (If Supplied By Facility): CTDIvol = ( 44.99 ) mGy, DLP = ( 812.98 ) mGycm TECHNIQUE: Transaxial CT imaging of the brain was performed without administration of intravenous contrast material. Individualized dose optimization techniques were used for this CT. COMPARISON: 12/25/2017 FINDINGS: Normal soft tissue structures. Normal calvarium. Normal size ventricles and extra-axial spaces for the patient's age. Normal white matter tracts of the cerebral hemispheres. Normal basal ganglia and thalami. Normal brainstem. Normal cerebellum. There is no intracranial hemorrhage. There are no findings of an acute ischemic infarction. Normal visualized paranasal sinuses. CT/Brain/Head without Contrast IMPRESSION: No intracranial hemorrhage or mass effect. Stable exam. Electronically Signed: Vu Regan MD at 14:38 EST , Service support ,
--- NOTE | 2018-08-05 14:02 | CT_ITS ---
STUDY: CT CERVICAL SPINE WITHOUT CONTRAST REASON FOR EXAM: Female, 33 years old. Head versus car door RADIATION DOSAGE (If Supplied By Facility): CTDIvol = ( 43.12 ) mGy, DLP = ( 967.81 ) mGycm TECHNIQUE: High resolution transaxial imaging was performed without contrast material. Sagittal and coronal images were reconstructed. Individualized dose optimization techniques were used for this CT. COMPARISON: None FINDINGS: Normal craniovertebral junction. Normal anterior atlantoaxial articulation. Normal odontoid process. Normal cervical lordosis. Normal vertebral bodies and posterior osseous elements. C2-3: Normal endplates. Normal disc height and morphology. Normal central canal and intervertebral neuroforamina. C3-4: Normal endplates. Normal disc height and morphology. Normal central canal and intervertebral neuroforamina. C4-5: Normal endplates. Normal disc height and morphology. Normal central canal and intervertebral neuroforamina. C5-6: Normal endplates. Normal disc height and morphology. Normal central canal and intervertebral neuroforamina. C6-7: Normal endplates. Normal disc height and morphology. Normal central canal and intervertebral neuroforamina. C7-T1: Normal endplates. Normal disc height and morphology. Normal central canal and intervertebral neuroforamina. Normal visualized soft tissue structures. CT/Spine Cervical without Contras IMPRESSION: Normal unenhanced CT examination of the cervical spine. Electronically Signed: Dale Chavarria DO at 15:30 EST Tel , Service support ,
[2018-08-05] MEDS: Acetaminophen 500 MG Tablet 1000 MG PO (14:10)
--- NOTE | 2018-08-05 15:38 | ED.DEP ---
ED Disposition - Plan for ED Patient: Chief Complaint: Head Injury Instructions: ED Concussion Prescriptions: Naproxen [Naprosyn] 500 mg PO BID PRN #20 tablet Referrals: Jose Nieves Chi, MD [Primary Care Provider] -
--- NOTE | 2018-08-05 15:40 | ED.VISSUMM ---
- ER Visit Summary Date of Service: 08/05/18 Chief Complaint: Head injury History of Present Illness: The patient is a 33 F presenting after head injury. She states she was getting into her truck. She hit her head on the door frame and the door swung and hit the other side of her head. She is unsure if she lost consciousness. She complains of dizziness, nausea, headache. She did not try any medication prior to arrival. No other complaints. Physical Examination: Vitals are stable. Patient is afebrile. Alert no acute distress. HEENT exam is unremarkable. Neck mild diffuse tenderness with no step-off Lungs are clear and equal bilaterally. Heart is regular rate and rhythm. Abdomen is soft nontender nondistended. Extremities are unremarkable. Skin is warm and dry. No focal neurologic deficit. Remainder of exam is unremarkable. Emergency Department Course and Treatment: CT head and cervical spine show no acute process. Patient was given Tylenol. She is given prescription for Naprosyn. She is advised to follow-up with her primary care physician. Advised head injury instructions. Advised return to ED for worsening complaints. Disposition: Discharge home Impression: Closed head injury This note was generated with [employer] dictation software. It may contain incorrect words, spelling, and punctuation that were not noted in review of the chart prior to signing ED Disposition - Plan for ED Patient: Chief Complaint: Head Injury Instructions: ED Concussion Prescriptions: Naproxen [Naprosyn] 500 mg PO BID PRN #20 tablet Referrals: Jose Nieves Chi, MD [Primary Care Provider] -
[2018-08-05 15:43] VITALS: RESP 16
[2018-08-05 15:58] VITALS: BP 107/70; PULSE 98; RESP 16; O2SAT 99
--- NOTE | 2018-08-05 15:58 | ED.RN ---
REVIEWED D/C INSTRUCTIONS, FOLLOW UP CARE, PRESCRIPTION, AND S/S THAT WOULD WARRANT A RETURN TO THE ED WITH PT. PT VERBALIZED AN UNDERSTANDING AND DENIES FURTHER QUESTIONS FOR THIS RN. PT SKIN P/W/D, RESP EVEN AND UNLABORED, PT A&O X 3, NO DISTRESS NOTED. PT AMBULATED OUT OF ED, GAIT STEADY.
== END 2018-08-05 15:59 | disposition home or self-care (01) ==
LOC: ED 15:00
PROVIDERS: Emergency Provider Emergency Medicine; Family Provider Family Medicine Geriatric Medicine; PCP Family Medicine Geriatric Medicine
DX: S09.90XA Unspecified injury of head, initial encounter (principal); Z72.0 Tobacco use; Z79.51 Long term (current) use of inhaled steroids; Z79.899 Other long term (current) drug therapy; W20.8XXA Other cause of strike by thrown, projected or falling object, initial encounter; Y93.89 Activity, other specified; Y92.89 Other specified places as the place of occurrence of the external cause; Y99.8 Other external cause status
CPT/HCPCS: 70450; 72125; 99283

== ENCOUNTER 2018-08-31 20:47 | Emergency (ER) | payer MEDICAID, SELFPAY ==
[2018-08-31 20:48] VITALS: BP 144/93; PULSE 115; RESP 16; TEMP 36.1; O2SAT 96; BMI 48.0
--- NOTE | 2018-08-31 21:04 | ED.VISSUMM ---
- ER Visit Summary Date of Service: 08/31/18 Chief Complaint: Heavy vaginal bleeding History of Present Illness: The patient is a 33 F past medical history of anemia and depression and anxiety. Ab1 with having a miscarriage. Patient states she started her menstrual period about 4 days ago. Has had heavy bleeding with clots. States her bleeding is heavier than normal. She is not on any blood thinners. Physical Examination: Well-appearing young female no acute distress. Vital signs are stable. She is afebrile. She does not look septic or toxic. She is anxious. Her blood pressure is 144/93. HEENT exam unremarkable. Lungs clear to auscultation bilaterally. Heart regular rhythm rate about 110 no murmur. Abdomen morbidly obese but soft. Nontender normal bowel sounds no peritoneal signs. Extremities moving all 4. No edema. Neurologically she is awake alert with no focal motor deficits. Test Results: CBC shows hemoglobin of 10.1 normally she runs between 8 and 10. So this is her chronic anemia. Serum test is negative. Emergency Department Course and Treatment: Exam patient is doing well at 2230. Nurse was giving her Motrin in the room. I discussed with the patient her test results. We offered her a pelvic exam and she deferred. Stated she would follow-up with her INDIGO VAT TENDER CLOTH. Treatment Plan: Tylenol and Motrin for pain. Plenty of fluids and rest. Follow-up with your INDIGO VAT TENDER CLOTH. Disposition: Discharge Impression: Heavy vaginal bleeding Chronic anemia This note was generated with [employer] dictation software. It may contain incorrect words, spelling, and punctuation that were not noted in review of the chart prior to signing ED Disposition - Plan for ED Patient: Chief Complaint: Vag Bleeding Referrals: Jose Nieves Chi, MD [Primary Care Provider] -
--- NOTE | 2018-08-31 21:14 | ED.DCSUM_ITS ---
- ER Visit Summary Date of Service: 08/31/18 Chief Complaint: Heavy vaginal bleeding History of Present Illness: The patient is a 33 F past medical history of anemia and depression and anxiety. Ab1 with having a miscarriage. Patient states she started her menstrual period about 4 days ago. Has had heavy bleeding with clots. States her bleeding is heavier than normal. She is not on any blood thinners. Physical Examination: Well-appearing young female no acute distress. Vital signs are stable. She is afebrile. She does not look septic or toxic. She is anxious. Her blood pressure is 144/93. HEENT exam unremarkable. Lungs clear to auscultation bilaterally. Heart regular rhythm rate about 110 no murmur. Abdomen morbidly obese but soft. Nontender normal bowel sounds no peritoneal signs. Extremities moving all 4. No edema. Neurologically she is awake alert with no focal motor deficits. Test Results: CBC shows hemoglobin of 10.1 normally she runs between 8 and 10. So this is her chronic anemia. Serum test is negative. Emergency Department Course and Treatment: Exam patient is doing well at 2230. Nurse was giving her Motrin in the room. I discussed with the patient her test results. We offered her a pelvic exam and she deferred. Stated she would follow-up with her NETWORK SYSTEMS ANALYST. Treatment Plan: Tylenol and Motrin for pain. Plenty of fluids and rest. Follow-up with your NETWORK SYSTEMS ANALYST. Disposition: Discharge Impression: Heavy vaginal bleeding Chronic anemia This note was generated with [employer] dictation software. It may contain incorrect words, spelling, and punctuation that were not noted in review of the chart prior to signing ED Disposition - Plan for ED Patient: Chief Complaint: Vag Bleeding Referrals: Jose Nieves Chi, MD [Primary Care Provider] -
[2018-08-31 21:55] LABS: Hematocrit 33.8 % (37-47); Hemoglobin 10.1 g/dl (12.0-15.0); Mean Corp Hgb Conc 29.9 g/gl (32-36); Mean Corpuscular Hgb 21.4 pg (27.0-32.0); Mean Corpuscular Volume 71.8 fL (81-99); Mean Platelet Vol. 9.6 fl (6.2-12.0); Platelet Count 393 K/mm3 (150-450); RBC Distribution Width CV 20.9 % (11.6-14.6); RBC Distribution Width SD 53.9 fl (35.1-43.9); Red Blood Count 4.71 M/mm3 (4.2-5.4); Scan Indicated on CBC? Y/N YES- FLAGS NOTED; White Blood Count 14.7 K/mm3 (4.4-11.0)
[2018-08-31 22:14] LABS: Pregnancy, Serum, hCG Quali. NEGATIVE Negative (0-9 Nonpreg)
[2018-08-31] MEDS: Ibuprofen 600 MG Tablet PO (22:26)
--- NOTE | 2018-08-31 22:31 | ED.DEP ---
ED Disposition - Plan for ED Patient: Disposition: Home or Assisted Living Chief Complaint: Vag Bleeding Instructions: ED Bleed Irregular Vaginal Referrals: Macie Tatum MD [STAFF PHYSICIAN] - As soon as possible Additional Instructions: Plenty of fluids and rest. Tylenol and Motrin for pain. Follow-up with Dr. Blaine Singh for further evaluation of your heavy vaginal bleeding. Return if feeling a lot worse.
[2018-08-31 22:38] LABS: Differential Comment SCANNED
--- NOTE | 2018-08-31 22:45 | NURSING ---
pt left without her papers and the saline lock was not removed by any staff persons. call placed and message left to see if she removed her sl. pt called back and stated she pulled the sl out and placed it in a sharps box.
--- OUTSIDE RECORDS SUMMARY | 2018-11-05 08:44 | XMS RPT_ITS ---
:1985 Author Organization OHIP Support Name Relationship Address Phone DOUGIE BUSTAMANTE Unavailable [address] + [place] [address] LIGHT, CAMILLE Unavailable [address] + [place] [address] UE Unavailable Unavailable Unavailable BUSTAMANTEDOUGIE HALL Unavailable [address] + [place] [address] LIGHT, CAMILLE Unavailable [address] + [place] [address] UE Unavailable Unavailable Unavailable BUSTAMANTE DOUGIE Unavailable [address] + [place] [address] LIGHT, CAMILLE Unavailable [address] + [place] [address] UE Unavailable Unavailable Unavailable BUSTAMANTEDOUGIE HALL Unavailable [address] + [place] [address] LIGHT, CAMILLE Unavailable [address] + [place] [address] UE Unavailable Unavailable Unavailable ROBBY DOUGIE Unavailable [address] + [place] [address] LIGHT, CAMILLE Unavailable [address] + [place] [address] UE Unavailable Unavailable Unavailable ROBBY DOUGIE Unavailable [address] + [place] [address] LIGHT, CAMILLE Unavailable [address] + [place] [address] UE Unavailable Unavailable Unavailable ROBBY DOUGIE Unavailable [address] + [place] [address] LIGHT, CAMILLE Unavailable [address] + [place] [address] UE Unavailable Unavailable Unavailable BUSTAMANTEDOUGIE Unavailable [address] + [place] [address] LIGHT, CAMILLE Unavailable [address] + [place] [address] UE Unavailable Unavailable Unavailable BUSTAMANTEDOUGIE Unavailable [address] + [place] [address] LIGHT, CAMILLE Unavailable [address] + [place] [address] UE Unavailable Unavailable Unavailable BUSTAMANTEDOUGIE Unavailable [address] + [place] [address] LIGHT, CAMILLE Unavailable [address] + [place] [address] UE Unavailable Unavailable Unavailable ROBBY DOUGIE Unavailable [address] + [place] [address] LIGHT, CAMILLE Unavailable [address] + [place] [address] UE Unavailable Unavailable Unavailable ROBBY DOUGIE Unavailable [address] + [place] [address] LIGHT, CAMILLE Unavailable [address] + [place] [address] UE Unavailable Unavailable Unavailable ROBBY DOUGIE Unavailable [address] + [place] [address] LIGHT, CAMILLE Unavailable [address] + [place] [address] UE Unavailable Unavailable Unavailable ROBBY DOUGIE Unavailable [address] + [place] [address] LIGHT, CAMILLE Unavailable [address] + [place] [address] UE Unavailable Unavailable Unavailable ROBBY DOUGIE Unavailable [address] + [place] [address] LIGHT, CAMILLE Unavailable [address] + [place] [address] UE Unavailable Unavailable Unavailable ROBBY DOUGIE Unavailable [address] + [place] [address] LIGHT, CAMILLE Unavailable [address] + [place] [address] UE Unavailable Unavailable Unavailable BUSTAMANTE, DOUGIE Unavailable [address] + [place] [address] LIGHT, CAMILLE Unavailable [address] + [place] [address] UE Unavailable Unavailable Unavailable DOUGIE BUSTAMANTE Unavailable [address] + [place] [address] LIGHT, CAMILLE Unavailable [address] + [place] [address] UE Unavailable Unavailable Unavailable DOUGIE BUSTAMANTE Unavailable [address] + [place] [address] LIGHT, CAMILLE Unavailable [address] + [place] [address] UE Unavailable Unavailable Unavailable DOUGIE BUSTAMANTE Unavailable [address] + [place] [address] LIGHT, CAMILLE Unavailable [address] + [place] [address] UE Unavailable Unavailable Unavailable DOUGIE BUSTAMANTE Unavailable [address] + [place] [address] UE Unavailable Unavailable Unavailable DOUGIE BUSTAMANTE Unavailable [address] + [place] [address] UE Unavailable Unavailable Unavailable DOUGIE BUSTAMANTE Unavailable [address] + [place] [address] UE Unavailable Unavailable Unavailable DOUGIE BUSTAMANTE Unavailable [address] + [place] [address] UE Unavailable Unavailable Unavailable DOUGIE BUSTAMANTE Unavailable [address] + [place] [address] UE Unavailable Unavailable Unavailable DOUGIE BUSTAMANTE Unavailable [address] + [place] [address] UE Unavailable Unavailable Unavailable DOUGIE BUSTAMANTE Unavailable [address] + [place] [address] UE Unavailable Unavailable Unavailable DOUGIE BUSTAMANTE Unavailable [address] + [place] [address] UE Unavailable Unavailable Unavailable DOUGIE BUSTAMANTE Unavailable [address] + [place] [address] UE Unavailable Unavailable Unavailable DOUGIE BUSTAMANTE Unavailable [address] + [place] [address] DOUGIE BUSTAMANTE Unavailable [address] + [place] [address] DOUGIE BUSTAMANTE Unavailable [address] + [place] [address] UE Unavailable Unavailable Unavailable DOUGIE BUSTAMANTE Unavailable [address] + [place] [address] UE Unavailable Unavailable Unavailable DOUGIE BUSTAMANTE Unavailable [address] + [place] [address] UE Unavailable Unavailable Unavailable DOUGIE BUSTAMANTE Unavailable [address] + [place] [address] UE Unavailable Unavailable Unavailable DOUGIE BUSTAMANTE Unavailable [address] + [place] [address] UE Unavailable Unavailable Unavailable DOUGIE BUSTAMANTE Unavailable [address] + [place] [address] UE Unavailable Unavailable Unavailable DOUGIE BUSTAMANTE Unavailable [address] + [place] [address] DOUGIE BUSTAMANTE Unavailable [address] + [place] [address] DOUGIE BUSTAMANTE Unavailable [address] + [place] [address] UE Unavailable Unavailable Unavailable DOUGIE BUSTAMANTE Unavailable [address] + [place] [address] DOUGIE BUSTAMANTE Unavailable [address] + [place] [address] DOUGIE BUSTAMANTE Unavailable [address] + [place] [address] UE Unavailable Unavailable Unavailable DOUGIE BUSTAMANTE Unavailable [address] + [place] [address] DOUGIE BUSTAMANTE Unavailable [address] + [place] [address] DOUGIE BUSTAMANTE Unavailable [address] + [place] [address] UE Unavailable Unavailable Unavailable DOUGIE BUSTAMANTE Unavailable [address] + [place] [address] UE Unavailable Unavailable Unavailable DOUGIE BUSTAMANTE Unavailable [address] + [place] [address] UE Unavailable Unavailable Unavailable BUSTAMANTE, DOUGIE Unavailable [address] + [place] [address] UE Unavailable Unavailable Unavailable BUSTAMANTE, DOUGIE Unavailable [address] + [place] [address] UE Unavailable Unavailable Unavailable BUSTAMANTE, DOUGIE Unavailable [address] + [place] [address] UE Unavailable Unavailable Unavailable Care Team Providers Name Role Phone Dawson Jolley Attending Unavailable Dawson Jolley Attending Unavailable Dawson Jolley Attending Unavailable No Family Physician given Primary Care Unavailable DR. RAFAL ROBLES DO Attending Unavailable PHYSICIAN, NONE Primary Care Unavailable HORTENCIA CHOUDHARY, KRANTHI Lane Attending Unavailable CHERRI PATIÑO MD BChelsy Primary Care Unavailable SUSAN LOPEZ MD Attending Unavailable CHERRI PATIÑO MD Primary Care Unavailable Kirstin Westfall MD Attending Unavailable CHERRI PATIÑO MD. Primary Care Unavailable Ezequiel, Jose Chi Primary Care Unavailable Jaclyn Rizo Attending Unavailable Ezequiel, Jose Chi Primary Care Unavailable Kory Wyane Attending Unavailable Oleghe, Efewongbe Primary Care Unavailable Yina Owen Attending Unavailable Oleghe, Efewongbe Primary Care Unavailable Romeo Morton Attending Unavailable Oleghe, Efewongbe Primary Care Unavailable Kalie Montgomery Attending Unavailable Oleghe, Efewongbe Primary Care Unavailable Nirmal Chandra Attending Unavailable Blaine Gage [employer] Attending Unavailable Oleghe, Efewongbe Referring Unavailable Oleghe, Efewongbe Primary Care Unavailable Blaine Gage [employer] Attending Unavailable Oleghe, Efewongbe Primary Care Unavailable Blaine Gage [employer] Attending Unavailable Blaine Gage [employer] Referring Unavailable Oleghe, Efewongbe Primary Care Unavailable Oleghe, Efewongbe Primary Care Unavailable Romeo Morton Attending Unavailable Oleghe, Efewongbe Attending Unavailable Oleghe, Efewongbe Referring Unavailable Oleghe, Efewongbe Primary Care Unavailable Veronika Lea Attending Unavailable Blaine Gage [employer] Attending Unavailable Oleghe, Efewongbe Referring Unavailable Oleghe, Efewongbe Primary Care Unavailable Blaine Gage [employer] Attending Unavailable Oleghe, Efewongbe Referring Unavailable Oleghe, [...] Rizo Attending Unavailable Ayla Bates Attending Unavailable Blaine Gage [employer] Attending Unavailable Oleghe, Efewongbe Referring Unavailable Oleghe, Efewongbe Primary Care Unavailable Blaine Gage [employer] Attending Unavailable Blaine Gage [employer] Referring Unavailable Oleghe, Efewongbe Primary Care Unavailable Blaine Gage [employer] Attending Unavailable Oleghe, Efewongbe Referring Unavailable Oleghe, Efewongbe Primary Care Unavailable Blaine Gage [employer] Attending Unavailable Oleghe, Efewongbe Referring Unavailable Oleghe, Efewongbe Primary Care Unavailable Blaine Gage [employer] Attending Unavailable Blaine Gage [employer] Referring Unavailable Oleghe, Efewongbe Primary Care Unavailable [...] Primary Care Unavailable Talat Canales Attending Unavailable Svitlana Chicas Mer Referring Unavailable Ezequiel, Jose Chi Primary Care Unavailable Yina [place] Attending Unavailable Yolie Hartmann Attending Unavailable Ezequiel, Jose Chi Primary Care Unavailable Yolie Hartmann Referring Unavailable Ezequiel, Jose Chi Consulting Unavailable Ezequiel, Jose Chi Primary Care Unavailable Nirmal Chandra Attending Unavailable Ezequiel, Jose Chi Attending Unavailable Ezequiel, Jose Chi Referring Unavailable Ezequiel, Jose Chi Primary Care Unavailable Ezequiel, Jose Chi Attending Unavailable Ezequiel, Jose Chi Primary Care Unavailable PROBLEMS PROBLEMS DATE TYPE CONDITION / CODE ATTENDING STATUS SOURCE 07/09/2018 Unknown R68.83 - Chills Ezequiel, Jose Chi Active [place] (without fever) / Community R68.83(ICD-10) Hospital Repository 06/04/2018 Unknown G47.33 - Hartmann, Active [place] Obstructive sleep [facility] apnea (adult) Hospital (pediatric) / Repository G47.33(ICD-10) 04/25/2018 Unknown D64.9 - Anemia, Ezequiel, Jose Chi Active [place] unspecified / Community D64.9(ICD-10) Hospital Repository 04/17/2018 Unknown J45.909 - Michael Adler Active [facility] Unspecified asthma, D.O. Community uncomplicated / Hospital J45.909(ICD-10) Repository 04/17/2018 Unknown F17.210 - Nicotine Michael Adler Active [place] dependence, D.O. Community cigarettes, Hospital uncomplicated / Repository F17.210(ICD-10) 04/17/2018 Unknown G47.19 - Other Michael Adler Active [facility] hypersomnia / D.O. Community G47.19(ICD-10) Hospital Repository 05/11/2018 Unknown R06.02 - Shortness Talat Canales Active [facility] of breath / Community R06.02(ICD-10) Hospital Repository 04/10/2018 Unknown R05 - Cough / Gage, Blaine Active [place] R05(ICD-10) [employer] [facility] Repository 03/13/2018 Unknown S63.502A - Southern, Active [place] Unspecified sprain Jaclyn Community of left wrist, Hospital initial encounter / Repository S63.502A(ICD-10) 06/28/2018 Unknown M79.604 - Pain in [facility] Active [place] right leg / Community M79.604(ICD-10) Hospital Repository 01/31/2018 Unknown R06.01 - Orthopnea Gage, Blaine Active [place] / R06.01(ICD-10) [employer] [facility] Repository 01/31/2018 Unknown R60.0 - Localized Gage, Blaine Active [place] edema / [employer] Community R60.0(ICD-10) Hospital Repository 01/31/2018 Unknown M25.40 - Effusion, Gage, Blaine Active [facility] unspecified joint / [employer] Community M25.40(ICD-10) Hospital Repository 10/06/2017 Unknown R06.00 - Dyspnea, Gage, Blaine Active [place] unspecified / [employer] Community R06.00(ICD-10) Hospital Repository 10/05/2017 Admitting Unknown / SholaDawson Active [facility] UNK(Unknown) L [facility] Repository 09/26/2017 Unknown J18.9 - Pneumonia, Valentina, Kalie Active [facility] unspecified Community organism / Hospital J18.9(ICD-10) Repository PROCEDURES PROCEDURES No Procedure Records FoundRESULTS RESULTS DISCHARGE INSTRUCTION Observed: 09/01/2018 Status: F Source: [place] 12:00 AM [facility] REPOSITORY [facility] Medical Records Department [address] [place] [address] Discharge Instruction 08/31/182230 MR#: [id number] Acct: [id number] Name: NEGRITO BUSTAMANTE Rep #: [id number] : 1985 33 From: Kory Wayne MD PCP: Ezequiel CHOUDHARY,Jose Geiger Status: DEP ER ED Disposition - Plan for ED Patient: Disposition: Home or Assisted Living Chief Complaint: Vag Bleeding Instructions: ED Bleed Irregular Vaginal Referrals: Macie Tatum MD [STAFF PHYSICIAN] - As soon as possible Additional Instructions: Plenty of fluids and rest. Tylenol and Motrin for pain. Follow-up with Dr. Blaine Singh for further evaluation of your heavy vaginal bleeding. Return if feeling a lot worse. What to do if you have Problems For any increased pain, shortness of breath, bleeding, nausea or vomiting, chest pain, or any unexpected problems, contact your Primary Care Provider. Call [facility] ([phone]) or report to the closest Emergency Room. Call 911 if necessary. 09/01/18 0000 <Electronically signed by Kory Wayne MD> Date Kory Wayne MD Cosigner Signature (If Indicated): Date CC: Jose Nieves MD EMERGENCY DEPARTMENT Observed: 09/01/2018 Status: F Source: [place] SUMMARY 12:00 AM [facility] REPOSITORY [facility] Medical Records Department [address] [place] [address] Emergency Department Summary 08/31/18 2104 MR#: [id number] Acct: [id number] Name: NEGRITO BUSTAMANTE Rep #: [id number] : 1985 33 From: Kory Wayne MD PCP: Joes Nieves MD, Chi Status: DEP ER - ER Visit Summary Date of Service: 08/31/18 Chief Complaint: Heavy vaginal bleeding History of Present Illness: The patient is a 33 F past medical history of anemia and depression and anxiety. Ab1 with having a miscarriage. Patient states she started her menstrual period about 4 days ago. Has had heavy bleeding with clots. States her bleeding is heavier than normal. She is not on any blood thinners. Physical Examination: Well-appearing young female no acute distress. Vital signs are stable. She is afebrile. She does not look septic or toxic. She is anxious. Her blood pressure is 144/93. HEENT exam unremarkable. Lungs clear to auscultation bilaterally. Heart regular rhythm rate about 110 no murmur. Abdomen morbidly obese but soft. Nontender normal bowel sounds no peritoneal signs. Extremities moving all 4. No edema. Neurologically she is awake alert with no focal motor deficits. Test Results: CBC shows hemoglobin of 10.1 normally she runs between 8 and 10. So this is her chronic anemia. Serum test is negative. Emergency Department Course and Treatment: Exam patient is doing well at 2230. Nurse was giving her Motrin in the room. I discussed with the patient her test results. We offered her a pelvic exam and she deferred. Stated she would follow-up with her [employer]IVER. Treatment Plan: Tylenol and Motrin for pain. Plenty of fluids and rest. Follow-up with your [employer]SEMBL[employer] DRIVER. Disposition: Discharge Impression: Heavy vaginal bleeding Chronic anemia This note was generated with FreeATM[employer] software. It may contain incorrect words, spelling, and punctuation that were not noted in review of the chart prior to signing ED Disposition - Plan for ED Patient: Chief Complaint: Vag Bleeding Referrals: Jose Nieves Chi, MD [Primary Care Provider] - What to do if you have Problems For any increased pain, shortness of breath, bleeding, nausea or vomiting, chest pain, or any unexpected problems, contact your Primary Care Provider. Call [facility] ([phone]) or report to the closest Emergency Room. Call 911 if necessary. 09/01/18 0000 <Electronically signed by Kory Wayne MD> Date Kory Wayne MD Cosigner Signature (If Indicated): Date CC: Jose Nieves MD CBC-COMPLETE BLOOD CNT Collected: 08/31/2018 Status: F Source: [place] NO DIFF 9:15 PM [facility] REPOSITORY TYPE CODE TESTS RESULT OUT OF RANGE REFERENCE UNITS LAB L100.1000 4.4-11.0 K/mm3 High WBC 14.7 LAB L100.1200 4.2-5.4 M/mm3 Normal RBC 4.71 LAB L100.1300 12.0-15.0 g/dl Low HGB 10.1 LAB L100.1400 37-47 % Low HCT 33.8 LAB L100.1500 81-99 fL Low MCV 71.8 LAB L100.1600 27.0-32.0 pg Low MCH 21.4 LAB L100.1700 32-36 g/gl Low MCHC 29.9 LAB L100.1810 11.6-14.6 % High RDW CV 20.9 LAB L100.1820 35.1-43.9 fl High RDW SD 53.9 LAB L100.1900 150-450 K/mm3 Normal PLT 393 LAB L100.2000 6.2-12.0 fl Normal MPV 9.6 Performed By: #### L100.0500, L100.4500 #### [facility] [address] [place], [address] DIFFERENTIAL COMMENT Collected: 08/31/2018 Status: F Source: [place] 9:15 PM [facility] REPOSITORY TYPE CODE TESTS RESULT OUT OF RANGE REFERENCE UNITS LAB L100.4500 Normal SMEAR COMMENT SCANNED Result Comment: 1+ ANISOCYTOSIS Performed By: #### L100.0500, L100.4500 #### [facility] [address] [place], [address] ,SERUM,HCG QUALI. Collected: Status: F Source: [place] 08/31/2018 9:15 PM [facility] REPOSITORY TYPE CODE TESTS RESULT OUT OF REFERENCE UNITS RANGE LAB L700.7000 0-9 Nonpreg Negative Normal HCGSQUAL NEGATIVE LAB L700.6700 =>Qualitative mIU/mL Normal HCG Qual < 1 triggr Performed By: #### L700.6800 #### [facility] [address] [place], [address] EMERGENCY DEPARTMENT Observed: 08/05/2018 Status: F Source: [place] SUMMARY 3:43 PM [facility] REPOSITORY [facility] Medical Records Department [address] [place] [address] Emergency Department Summary 08/05/18 1540 MR#: [id number] Acct: [id number] Name: NEGRITO BUSTAMANTE Rep #: [id number] : 1985 33 From: Jaclyn Rizo MD PCP: Jose Nieves MD, Chi Status: REG ER - ER Visit Summary Date of Service: 08/05/18 Chief Complaint: Head injury History of Present Illness: The patient is a 33 F presenting after head injury. She states she was getting into her truck. She hit her head on the door frame and the door swung and hit the other side of her head. She is unsure if she lost consciousness. She complains of dizziness, nausea, headache. She did not try any medication prior to arrival. No other complaints. Physical Examination: Vitals are stable. Patient is afebrile. Alert no acute distress. HEENT exam is unremarkable. Neck mild diffuse tenderness with no step-off Lungs are clear and equal bilaterally. Heart is regular rate and rhythm. Abdomen is soft nontender nondistended. Extremities are unremarkable. Skin is warm and dry. No focal neurologic deficit. Remainder of exam is unremarkable. Emergency Department Course and Treatment: CT head and cervical spine show no acute process. Patient was given Tylenol. She is given prescription for Naprosyn. She is advised to follow-up with her primary care physician. Advised head injury instructions. Advised return to ED for worsening complaints. Disposition: Discharge home Impression: Closed head injury This note was generated with [employer] dictation software. It may contain incorrect words, spelling, and punctuation that were not noted in review of the chart prior to signing ED Disposition - Plan for ED Patient: Chief Complaint: Head Injury Instructions: ED Concussion Prescriptions: Naproxen [Naprosyn] 500 mg PO BID PRN #20 tablet Referrals: Jose Nieves Chi, MD [Primary Care Provider] - What to do if you have Problems For any increased pain, shortness of breath, bleeding, nausea or vomiting, chest pain, or any unexpected problems, contact your Primary Care Provider. Call [facility] ([phone]) or report to the closest Emergency Room. Call 911 if necessary. 08/05/18 1546 <Electronically signed by Jaclyn Rizo MD> Date Jaclyn Rizo MD Cosigner Signature (If Indicated): Date CC: Jose Nieves MD DISCHARGE INSTRUCTION Observed: 08/05/2018 Status: F Source: [place] 3:39 PM [facility] REPOSITORY [facility] Medical Records Department [address] [place] [address] Discharge Instruction 08/05/18 1538 MR#: [id number] Acct: [id number] Name: NEGRITO BUSTAMANTE Romana Rep #: [id number] : 1985 33 From: Jaclyn Rizo MD PCP: Jose Nieves MD, Chi Status: REG ER ED Disposition - Plan for ED Patient: Chief Complaint: Head Injury Instructions: ED Concussion Prescriptions: Naproxen [Naprosyn] 500 mg PO BID PRN #20 tablet Referrals: Jose Nieves Chi, MD [Primary Care Provider] - What to do if you have Problems For any increased pain, shortness of breath, bleeding, nausea or vomiting, chest pain, or any unexpected problems, contact your Primary Care Provider. Call [facility] ([phone]) or report to the closest Emergency Room. Call 911 if necessary. 08/05/181538 <Electronically signed by Jaclyn Rizo MD> Date Jaclyn Rizo MD Cosigner Signature (If Indicated): Date CC: Jose Nieves MD BRAIN/HEAD WITHOUT Observed: 08/05/2018 Status: F Source: [place] CONTRAST 2:03 PM [facility] REPOSITORY [facility] Imaging Services [address] [place] [address] Brain/Head without Contrast MR#: [id number] Acct: [id number] Name: NEGRITO BUSTAMANTE Rep #: [id number] : 1985 F 33 From: Vu Regan MD PCP: Jose Nieves MD, Chi Status: PRE ER Study: Brain/Head without Contrast Date of Exam: 08/05/18 Exam# [id number] Ordering Dr: Jaclyn Rizo MD STUDY: CT BRAIN WITHOUT CONTRAST REASON FOR EXAM: Female, 33 years old. Hit head on car door RADIATION DOSAGE (If Supplied By Facility): CTDIvol = ( 44.99 ) mGy, DLP = ( 812.98 ) mGycm TECHNIQUE: Transaxial CT imaging of the brain was performed without administration of intravenous contrast material. Individualized dose optimization techniques were used for this CT. COMPARISON: 12/25/2017 FINDINGS: Normal soft tissue structures. Normal calvarium. Normal size ventricles and extra-axial spaces for the patient's age. Normal white matter tracts of the cerebral hemispheres. Normal basal ganglia and thalami. Normal brainstem. Normal cerebellum. There is no intracranial hemorrhage. There are no findings of an acute ischemic infarction. Normal visualized paranasal sinuses. CT/Brain/Head without Contrast IMPRESSION: No intracranial hemorrhage or mass effect. Stable exam. Electronically Signed: Vu Regan MD at 14:38 EST , Service support , CC: Jaclyn Rizo MD; Jose Nieves MD Target Aircraft Controller: Signed SPINE CERVICAL Observed: 08/05/2018 Status: F Source: [place] WITHOUT CONTRAS 2:03 PM [facility] REPOSITORY [facility] Imaging Services [facility] [place] [address] Spine Cervical without Contras MR#: [id number] Acct: [id number] Name: NEGRITO BUSTAMANTE Rep #: [id number] : 1985 F 33 From: Dale Chavarria DO PCP: Jose Nieves MD, Chi Status: REG ER Study: Spine Cervical without Contras Date of Exam: 08/05/18 Exam# [id number] Ordering Dr: Jaclyn Rizo MD STUDY: CT CERVICAL SPINE WITHOUT CONTRAST REASON FOR EXAM: Female, 33 years old. Head versus car door RADIATION DOSAGE (If Supplied By Facility): CTDIvol = ( 43.12 ) mGy, DLP = ( 967.81 ) mGycm TECHNIQUE: High resolution transaxial imaging was performed without contrast material. Sagittal and coronal images were reconstructed. Individualized dose optimization techniques were used for this CT. COMPARISON: None FINDINGS: Normal craniovertebral junction. Normal anterior atlantoaxial articulation. Normal odontoid process. Normal cervical lordosis. Normal vertebral bodies and posterior osseous elements. C2-3: Normal endplates. Normal disc height and morphology. Normal central canal and intervertebral neuroforamina. C3-4: Normal endplates. Normal disc height and morphology. Normal central canal and intervertebral neuroforamina. C4-5: Normal endplates. Normal disc height and morphology. Normal central canal and intervertebral neuroforamina. C5-6: Normal endplates. Normal disc height and morphology. Normal central canal and intervertebral neuroforamina. C6-7: Normal endplates. Normal disc height and morphology. Normal central canal and intervertebral neuroforamina. C7-T1: Normal endplates. Normal disc height and morphology. Normal central canal and intervertebral neuroforamina. Normal visualized soft tissue structures. CT/Spine Cervical without Contras IMPRESSION: Normal unenhanced CT examination of the cervical spine. Electronically Signed: Dale Chavarria DO at 15:30 EST Tel , Service support , CC: Jaclyn Rizo MD; Jose Nieves MD Target Aircraft Controller: Signed CBC W/DIFF, AUTOMATED Collected: 07/19/2018 Status: F Source: NOY 1:54 PM [facility] REPOSITORY TYPE CODE TESTS RESULT OUT [...] Normal RARE Performed By: #### L100.0100 #### [facility] [address] [place], [address] COMPREHENSIVE METABOLIC Collected: 07/19/2018 Status: F Source: NOY [facility] 1:54 PM [facility] REPOSITORY TYPE CODE TESTS RESULT OUT [...] 7 Performed By: #### L500.4050, L501.9520 #### [facility] [address] [place], [address] THYROID STIM HORMONE Collected: 07/19/2018 Status: F Source: [place] (TSH) 1:54 PM [facility] REPOSITORY TYPE CODE TESTS RESULT OUT OF RANGE REFERENCE UNITS LAB L501.9520 0.358-3.74 uIU/mL High TSH 8.01 Performed By: #### L500.4050, L501.9520 #### [facility] [address] [place], [address] Observed: 07/09/2018 Status: F Source: [place] RESPIRATORY PANEL 4:17 PM [facility] MOLECULAR REPOSITORY RP PANEL ADENOVIRUS Not Detected [...] acid amplification Performed By: #### M100.638 #### [facility] [address] [place] [address], [address] EMERGENCY DEPARTMENT Observed: 06/19/2018 Status: F Source: NOY SUMMARY 9:20 PM [facility] REPOSITORY [facility] Medical Records Department [address] [place] [address] Emergency Department Summary 06/19/18 2115 MR#: [id number] Acct: [id number] Name: NEGRITO BUSTAMANTE Rep #: [id number] : 1985 33 From: Nirmal Chandra MD PCP: Ezequiel CHOUDHARY,Jose Chi Status: REG ER - ER Visit Summary [...] and Treatment: She was treated with one [place] pill/tablet. Treatment Plan: Anti-inflammatories rest ice and follow-up with PCP Disposition: Discharged home in stable condition Impression: 1. Injury secondary to mechanical fall initial encounter 2. Contusion head initial encounter 3. Contusion right knee initial encounter 4. Low back strain secondary to fall initial encounter 5. Paresthesia left lower extremity unknown etiology This note was generated with FreeATMation software. It may contain incorrect words, spelling, [...] hours. Your prescriptions were electronically transmitted to [facility]. What to do if you have Problems For any increased pain, shortness of breath, bleeding, nausea or vomiting, chest pain, or any unexpected problems, contact your Primary Care Provider. Call [facility] ([phone]) or report to the closest Emergency Room. Call 911 if necessary. 06/19/182119 <Electronically signed by Nirmal Chandra MD> Date Nirmal Chandra MD Cosigner Signature (If Indicated): Date CC: Jose Nieves MD LUMBAR SPINE 2 OR 3 Observed: 06/19/2018 Status: F Source: [place] VIEWS 7:58 PM [facility] REPOSITORY [facility] Imaging Services [address] [place] [address] Lumbar Spine 2 or 3 Views MR#: [id number] Acct: [id number] Name: NEGRITO BUSTAMANTE Rep #: [id number] : 1985 F 33 From: Tod Zamarripa MD PCP: Jose Nieves MD, Chi Status: REG ER Study: Lumbar Spine 2 or 3 Views Date of Exam: 06/19/18 Exam# [id number] Ordering Dr: Nirmal Chandra MD STUDY: X-RAY [...] CC: Jose Nieves MD; Nirmal Chandra MD Target Aircraft Controller: Signed Observed: 06/04/2018 Status: F Source: [place] RESPIRATORY PANEL 3:45 PM [facility] MOLECULAR REPOSITORY RP PANEL Normal Reference Range = Not Detected RESULTS CALLED TO WILLIAN/ 06/05/18 0908 Karla Cornejo. Copy of report sent to Infection Control Printer [id number] 06/05/18 0909 ELISEO. ADENOVIRUS Not Detected HUMAN METAPHNEUMO Not Detected [...] 1: RHINOVIRUS Performed By: #### M100.638 #### [facility] [address] [facility] [place], [address] EMERGENCY DEPARTMENT Observed: 05/14/2018 Status: F Source: [place] SUMMARY 12:21 AM [facility] REPOSITORY [facility] Medical Records Department [address] [facility] [place] [address] Emergency Department Summary 05/13/18 2244 MR#: [id number] Acct: [id number] Name: NEGRITO BUSTAMANTE Rep #: [id number] : 1985 33 From: Yina Owen MD [...] Viral URI This note was generated with [employer] dictation software. It may contain incorrect words, [...] problems, contact your Primary Care Provider. Call [facility] ([phone]) or report to the closest Emergency Room. Call 911 if necessary. 05/14/18 0021 <Electronically signed by Yina Owen MD> Date Yina Owen MD Cosigner Signature (If Indicated): Date CC: Jose Nieves MD DISCHARGE INSTRUCTION Observed: 05/13/2018 Status: F Source: NOY 10:47 PM [facility] REPOSITORY [facility] Medical Records Department [address] [place] [address] Discharge Instruction 05/13/182245 MR#: [id number] Acct: [id number] Name: NEGRITO BUSTAMANTE Rep #: [id number] : 1985 33 From: Yina Owen MD [...] your Primary Care Provider. Call [facility] ([phone]) or report to the closest Emergency Room. Call 911 if necessary. 05/13/182246 <Electronically signed by Yina Owen MD> Date Yina Owen MD Cosigner Signature (If Indicated): Date CC: Jose Nieves MD SOFT TISSUE NECK WITH Observed: 05/13/2018 Status: F Source: [place] CONTRAST 8:34 PM [facility] REPOSITORY [facility] Imaging Services [address] [place] [address] Soft Tissue Neck WITH Contrast MR#: [id number] Acct: [id number] Name: NEGRIOT BUSTAMANTE Rep #: [id number] : 1985 F 33 From: Chencho Aparicio MD PCP: Ezequiel CHOUDHARY,Jose Geiger Status: REG ER Study: Soft Tissue Neck WITH Contrast Date of Exam: 05/13/18 Exam# [id number] Ordering Dr: Yina Owen MD STUDY: CT [...] FINDINGS: Normal bilateral parotid glands. Normal bilateral call center support consultant spaces. Normal bilateral parapharyngeal spaces. Normal bilateral [...] CC: Yina Owen MD; Jose Nieves MD Target Aircraft Controller: Signed HH, HEMOGLOBIN AND Collected: 04/25/2018 Status: F Source: [place] HEMATOCRIT 4:01 PM [facility] REPOSITORY TYPE CODE TESTS RESULT OUT OF RANGE REFERENCE UNITS LAB L100.1300 12.0-15.0 g/dl Low HGB 10.0 LAB L100.1400 37-47 % Low HCT 32.9 Performed By: #### L100.0600 #### [facility] [address] [place], [address] COMPREHENSIVE METABOLIC Collected: 04/19/2018 Status: F Source: [place] PROFIL 4:05 PM [facility] REPOSITORY Order Comment: 'TROP' Serial specimen #1, [...] By: #### L500.4050, L501.3620, L501.4010, L501.9520 #### [facility] [address] [facility] [place], [place], [address] CPK TOTAL, CREATINE Collected: 04/19/2018 Status: F Source: NOY KINASE 4:05 [facility] REPOSITORY Order Comment: 'TROP' Serial specimen #1, #2, #3, or #4: 1 TYPE CODE TESTS RESULT OUT OF RANGE REFERENCE UNITS LAB L501.3620 26-192 U/L Normal CPK TOTAL 74 Performed By: #### L500.4050, L501.3620, L501.4010, L501.9520 #### [facility] [address] [facility]. [place], [place], [address] TROPONIN-I Collected: 04/19/2018 Status: F Source: NOY 4:05 PM [facility] REPOSITORY Order Comment: 'TROP' Serial specimen #1, #2, #3, or #4: 1 TYPE CODE TESTS RESULT OUT OF RANGE REFERENCE UNITS LAB L501.4010 <0.045 ng/mL Normal < 0.015 TROPONIN-I Result Comment: TROPONIN-I EXPECTED VALUES <0.045 Negative 0.045 - 0.590 Consistent with Cardiac Damage > OR = 0.600 Critical Value Not every elevated troponin is indicative of MN. These values should be used with clinical judgement in examining the patient's clinical picture for diagnosis. To establish a diagnosis of MN versus myocardial injury, there must be a demonstrated rise and/or fall in the troponin values, in addition to ischemic symptoms, EKG changes, new regional wall motion abnormality, and/or angiographical evidence. PLEASE NOTE: REFERENCE RANGES EDITED 17 Performed By: #### L500.4050, L501.3620, L501.4010, L501.9520 #### [facility] [address] [place], [address] THYROID STIM HORMONE Collected: 04/19/2018 Status: F Source: NOY (TSH) 4:05 PM [facility] REPOSITORY Order Comment: 'TROP' Serial specimen #1, #2, #3, or #4: 1 TYPE CODE TESTS RESULT OUT OF RANGE REFERENCE UNITS LAB L501.9520 0.358-3.74 uIU/mL High TSH 9.96 Performed By: #### L500.4050, L501.3620, L501.4010, L501.9520 #### [facility] [address] [place], [address] BNP,B-TYPE NATRIURETIC Collected: 04/19/2018 Status: F Source: NOY PEPTIDE 4:05 PM [facility] REPOSITORY TYPE CODE TESTS RESULT OUT OF RANGE REFERENCE UNITS LAB L503.6620 0-100 pg/mL Normal B-TYPE 4.1 SANTOS PEP Performed By: #### L503.6620 #### [facility] [address] [place], [address] D-DIMER QUANTITATIVE Collected: 04/19/2018 Status: F Source: [place] (DVT/PE) 4:05 PM [facility] REPOSITORY TYPE CODE TESTS RESULT OUT OF RANGE REFERENCE UNITS LAB L300.8000 0.27-0.49 FEU/ug/m Low D-DIMER < 0.27 QUANT Result Comment: NORMAL D-Dimer level (<0.50) indicates no DVT or PE. Performed By: #### L300.8000 #### [facility] [address] [place], [place], [address] CBC W/DIFF, AUTOMATED Collected: 04/19/2018 Status: F Source: NOY 4:05 PM [facility] REPOSITORY TYPE CODE TESTS RESULT OUT [...] Normal RARE Performed By: #### L100.0100 #### [facility] [address] [place], [address] MYOGLOBIN, SERUM Collected: 04/19/2018 Status: F Source: [place] 4:05 PM [facility] REPOSITORY TYPE CODE TESTS RESULT OUT OF RANGE REFERENCE UNITS LAB L3600.5100 25-58 ng/mL Normal 51 Myoglobin, Ser Result Comment: Performed at: [facility] [address] [id number] Orange Grower: Benoit Rios PhD, Phone: [phone] Performed By: #### L3600.5100 #### [facility] (refer to report for specific site) refer to report for address and phone number Observed: 04/19/2018 Status: F Source: [place] BORDATELLA PANEL 12:00 AM [facility] MOLECULAR REPOSITORY BORDATELL PANEL B PERTUSSIS Not Detected B PARAPERTUSSIS BRONCHISE Not Detected B HOLMESII Not Detected NAAT METHOD Testing was performed using nucleic acid amplification Performed By: #### M100.629 #### [facility] [address] [place] [address], [address] PULMONARY VISIT REPORT Observed: 04/17/2018 Status: F Source: [place] 10:25 AM [facility] REPOSITORY [facility] [address] [place] [address] OFFICE VISIT Date of Service: 04/17/18 MR#: [id number] Acct: [id number] Name: NEGRITO BUSTAMANTE Romana Rep #: [id number] : 1985 Provider: Michael Adler D.O. Age/Sex: 33/ Location: [facility] Status: Signed Assessment AND Plan 1. 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 At the present time, she is utilizing [...] LEAD ELECTROCARDIOGRAM Observed: 04/13/2018 Status: F Source: [place]Y 1:37 PM [facility] Cardiovascular Services [address] [place] [address] 12 Lead EKG 04/11/18 0809 MR#: [id number] Acct: [id number] Name: NEGRITO BUSTAMANTE Rep #: [id number] : 1985 33 From: Talat Canales MD Attending Dr: Svitlana Chicas MD Status: DIS IN Ordering Dr: Svitlana Chicas MD Date: 04/11/18 Location: [facility] Sex: F C Admitted: 04/10/18 Test Reason [...] Normal ECG Confirmed by JOCELIN CHOUDHARY, TALAT ([id number]), video news editor SUBHA VLIA ([id number]) on 04/13/2018 1:37:07 PM Referred By: Blaine Gage Confirmed By:TALAT CANALES MD 04/13/18 1337 Date Talat Canales MD CC: Cherri Patiño MD; Svitlana Chicas MD Signed DISCHARGE SUMMARY Observed: 04/12/2018 Status: F Source: NOY 9:59 AM [facility] Medical Records Department [address] [place] [address] Discharge Summary 04/12/18 0946 MR#: [id number] Acct: [id number] Name: NEGRITO BUSTAMANTE Rep #: [id number] : 1985 33 From: Svitlana Chicas MD PCP: Cherri Patiño MD Status: ADM IN Y Location: [facility] [id number] Discharge Date and Diagnosis - Problem List [...] and was given a prescription for Z-Jody. This did not help with her symptoms [...] applicable Code Visit Inpatient E AND M: 81121 Disch Hosp 04/12/18 0959 <Electronically signed by Svitlana Chicas MD> Date Svitlana Chicas MD Cosigner Signature (if applicable): Date CC: Cherri Patiño MD; Svitlana Chicas MD Signed DISCHARGE INSTRUCTION Observed: 04/12/2018 Status: F Source: [place] 9:46 AM [facility] REPOSITORY [facility] Medical Records Department [address] [place] [address] Instructions for Home/Discharge Instructions 04/12/18 0944 MR#: [id number] Acct: [id number] Name: NEGRITO BUSTAMANTE Rep #: [id number] : 1985 33 From: Svitlana Chicas MD [...] F Source: NOY PROFILE (BMP) 5:35 AM [facility] REPOSITORY TYPE CODE TESTS RESULT OUT [...] Normal 8 Performed By: #### L500.2500 #### [facility] [place], [address] CBC W/DIFF, AUTOMATED Collected: 04/12/2018 Status: F Source: [place] 5:35 AM [facility] REPOSITORY TYPE CODE TESTS RESULT OUT [...] Normal 1+ Performed By: #### L100.0100 #### [facility] [address] [place], [place], [address] BASIC METABOLIC Collected: 04/11/2018 Status: F Source: [place] PROFILE (BMP) 5:50 AM [facility] REPOSITORY TYPE CODE TESTS RESULT OUT [...] Normal 9 Performed By: #### L500.2500 #### [facility] [address] [facility] [place], [address] CBC W/DIFF, AUTOMATED Collected: 04/11/2018 Status: F Source: [place]Y 5:50 AM [facility] REPOSITORY TYPE CODE TESTS RESULT OUT [...] COMMENT SCANNED Performed By: #### L100.0100 #### [facility] [address] [place], [address] CBC W/DIFF, AUTOMATED Collected: 04/10/2018 Status: F Source: [place]Y 6:09 PM [facility] REPOSITORY TYPE CODE TESTS RESULT OUT [...] OVALOCYTE RARE Performed By: #### L100.0100 #### [facility] [address] [place], [address] BASIC METABOLIC Collected: 04/10/2018 Status: F Source: [place] PROFILE (BMP) 6:09 PM [facility] REPOSITORY TYPE CODE TESTS RESULT OUT [...] Normal 9 Performed By: #### L500.2500 #### [facility] [address] [facility] 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 Total emdb-ff-osop time 20 minutes. This note was generated with [employer] dictation software. It may contain incorrect words, spelling, and punctuation that were not noted in checking the note before signing. Code Visit OBSV E AND M: 50273 Initial observation care L3 04/10/18 1742 <Electronically signed by Svitlana Chicas MD> Date Svitlana Chicas MD Cosigner Signature: Date (if applicable) CC: Cherri Patiño MD; Svitlana Chicas MD Signed Observed: 04/10/2018 Status: F Source: [place] RESPIRATORY PANEL 5:37 PM [facility] MOLECULAR REPOSITORY Order Date: 04/10/18 RP PANEL [...] 1: RHINOVIRUS Performed By: #### M100.638 #### [facility] [address] [facility] [place], [address] EMERGENCY DEPARTMENT Observed: 04/10/2018 Status: F Source: [place] SUMMARY 5:02 PM [facility] REPOSITORY [facility] Medical Records Department [address] [place] [address] Emergency Department Summary 04/10/18 1326 MR#: [id number] Acct: [id number] Name: NEGRITO BUSTAMANTE Rep #: [id number] : 1985 33 From: Kory Wayne MD [...] and vomiting This note was generated with [employer] dictation software. It may contain incorrect words, [...] problems, contact your Primary Care Provider. Call [facility] ([phone]) or report to the closest Emergency Room. Call 911 if necessary. 04/10/18 4552 <Electronically signed by Kory Wayne MD> Date Kory Dunbar Signature (If Indicated): Date CC: Cherri Patiño MD INTERNAL MEDICINE Observed: 04/10/2018 Status: F Source: [place] OFFICE VISIT 4:34 PM [facility] [address] [place] [address] OFFICE VISIT Date of Service: 04/10/18 MR#: [id number] Acct: [id number] Name: NEGRITO BUSTAMANTE Rep #: [id number] : 1985 Provider: Blaine Gage NP Age/Sex: 33/F Location: [facility] Status: Signed Intake Vital Signs04/10/18 Height 5 [...] awake, alert Limitations: mental status not altered [facility] Head: normal to inspection, normocephalic, atraumatic Ears: [...] AND LATERAL Observed: 04/10/2018 Status: F Source: [place] 3:57 PM [facility] REPOSITORY [facility] Imaging Services [address] [place] [address] Chest PA and Lateral MR#: [id number] Acct: [id number] Name: NEGRITO BUSTAMANTE Rep #: [id number] : 1985 F 33 From: Alejandro Parra MD PCP: Cherri Patiño MD Status: REG ER Study: Chest PA and Lateral Date of Exam: 04/10/18 Exam# [id number] Ordering Dr: Kory Wayne MD STUDY: X-RAY [...] CC: Cherri Patiño MD; Kory Wayne MD Target Aircraft Controller: Signed CHEST PA AND LATERAL Observed: 04/10/2018 Status: F Source: [place] 10:01 AM [facility] REPOSITORY [facility] Imaging Services [address] [place] [address] Chest PA and Lateral MR#: [id number] Acct: [id number] Name: NEGRITO BUSTAMANTE Rep #: [id number] : 1985 F 33 From: Ej Sam MD PCP: Cherri Patiño MD Status: REG CLI Study: Chest PA and Lateral Date of Exam: 04/10/18 Exam# [id number] Ordering Dr: Blaine Gage SUPERVISOR TUMBLERS-C STUDY: X-RAY CHEST REASON FOR EXAM: Female, [...] Ej Sam MD at 10:33 EDT Tel [phone], Service support , CC: Cherri Patiño MD; Blaine Gage NP Target Aircraft Controller: Signed INTERNAL MEDICINE Observed: 04/04/2018 Status: F Source: [place] OFFICE VISIT 2:01 PM [facility] [address] [place] [address] [place] [address] OFFICE VISIT Date of Service: 04/04/18 MR#: [id number] Acct: [id number] Name: NEGRITO BUSTAMANTE Romana Rep #: [id number] : 1985 Provider: Blaine Gage NP Age/Sex: 33/F Location: [facility] Status: Signed Intake Vital Signs04/04/18 Height 5 [...] PRN #10 tab 04/04/18 [Rx Confirmed 04/04/18] [facility] Medical History Obesity (Chronic) Chronic low back [...] easy bruising or enlarged lymph nodes Exam [facility] Head: normal to inspection Ears: [...] 03/27/2018 Status: F Source: NOY 4:48 PM [facility] REPOSITORY [facility] Imaging Services [address] [place] [address] Knee 3 Views MR#: [id number] Acct: [id number] Name: NEGRITO BUSTAMANTE Rep #: [id number] : 1985 F 33 From: Gordon Min PCP: Cherri Patiño MD Status: REG CLI Study: Knee 3 Views Date of Exam: 03/27/18 Exam# [id number] Ordering Dr: Blaine Gage SUPERVISOR TUMBLERS-C STUDY: X-RAY - LEFT KNEE REASON FOR [...] CC: Cherri Patiño MD; Blaine Gage NP Target Aircraft Controller: Signed INTERNAL MEDICINE Observed: 03/27/2018 Status: F Source: [place] OFFICE VISIT 4:44 PM [facility] [address] [place] [address] [place] [address] OFFICE VISIT Date of Service: 03/27/18 MR#: [id number] Acct: [id number] Name: NEGRITO BUSTAMANTE Rep #: [id number] : 1985 Provider: Blaine Gage NP Age/Sex: 33/F Location: [facility] Status: Signed Intake Vital Signs03/27/18 Height 5 [...] 03/09/18 [Rx Confirmed 03/27/18] Hydrocodone Bitart/Apap 5-325 [[place] 5MG-325MG] 1 tab PO Q6H PRN PRN [...] require urgent medical attention. Patient verbalized understanding. Amber disclaimer Plan Detail Other Orders Orders: Other Medications New: Refilled: Follow Up 4 weeks or sooner if Coding Level of Care Code Off vis,est,level 3 Diagnoses Injury of left knee, initial encounter S89.92XA Encounter type: initial encounter Laterality: left 03/27/18 1644 <Electronically signed by Blaine Gage SUPERVISOR TUMBLERS-C> Date Blaine Gage SUPERVISOR TUMBLERS-C Cosigner Signature: Date (if applicable) CC: BASIC METABOLIC Collected: 03/27/2018 Status: F Source: NOY PROFILE ([facility]) 4:40 PM [facility] REPOSITORY TYPE CODE TESTS RESULT OUT [...] L501.6100 21.0-32.0 mmol/L Normal CO2 25.0 LAB L501.6201 5-15 Normal GAP 11 Performed By: #### L500.2500 #### [facility] [address] [place], [address] OT FUNCTIONAL CAPACITY Observed: 03/14/2018 Status: F Source: [place] EVAL 10:46 AM [facility] REPOSITORY [facility] Occupational [facility] 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 - ADLS ADLS: Pt [...] L LE 3+/5, R LE 3/5 Right Ornament Setter Strength Average: 58.33 Left Ornament Setter Strength Average: 55.66 Right Lateral Pinch Average: [...] Walking: Pt able to walk 237ft from [facility] to area with one standing rest break needed [...] EMERGENCY DEPARTMENT Observed: 03/12/2018 Status: F Source: [place] SUMMARY 10:21 PM [facility] REPOSITORY [facility] Medical Records Department [address] [place] [address] Emergency Department Summary 03/12/18 2219 MR#: [id number] Acct: [id number] Name: NEGRITO BUSTAMANTE Rep #: [id number] : 1985 33 From: Jaclyn Rizo MD [...] She is given a short course of [place]. She is advised to ice and elevate. Advised return ED if worsening complaints. Advised to follow-up with primary care physician. Disposition: Discharge home Impression: Left wrist sprain This note was generated with [employer] dictation software. It may contain incorrect words, spelling, and punctuation that were not noted in review of the chart prior to signing ED Disposition - Plan for ED Patient: Chief Complaint: Upper Extremity Injury Instructions: ED Sprain Wrist Prescriptions: Hydrocodone Bitart/Apap 5-325 [[place] 5MG-325MG] 1 tablet PO Q6H PRN PRN 3 Days #10 tablet PRN Reason: Pain Referrals: Cherri Patiño MD [Primary Care Provider] - What to do if you have Problems For any increased pain, shortness of breath, bleeding, nausea or vomiting, chest pain, or any unexpected problems, contact your Primary Care Provider. Call [facility] ([phone]) or report to the closest Emergency Room. Call 911 if necessary. 03/12/182220 <Electronically signed by Jaclyn Rizo MD> Date Jaclyn Rizo MD Cosigner Signature (If Indicated): Date CC: Cherri Patiño MD DISCHARGE INSTRUCTION Observed: 03/12/2018 Status: F Source: [place] 10:15 PM [facility] REPOSITORY [facility] Medical Records Department [address] [place] [address] Discharge Instruction 03/12/18 2214 MR#: [id number] Acct: [id number] Name: NEGRITO BUSTAMANTE Romana Rep #: [id number] : 1985 33 From: Jaclyn Rizo MD PCP: Cherri Patiño MD Status: REG ER ED Disposition - Plan for ED Patient: Chief Complaint: Upper Extremity Injury Instructions: ED Sprain Wrist Prescriptions: Hydrocodone Bitart/Apap 5-325 [[place] 5MG-325MG] 1 tablet PO Q6H PRN PRN 3 Days #10 tablet PRN Reason: Pain Referrals: Cherri Patiño MD [Primary Care Provider] - What to do if you have Problems For any increased pain, shortness of breath, bleeding, nausea or vomiting, chest pain, or any unexpected problems, contact your Primary Care Provider. Call [facility] ([phone]) or report to the closest Emergency Room. Call 911 if necessary. 03/12/18 3515 <Electronically signed by Jaclyn Rizo MD> Date Jaclyn Rizo MD Cosigner Signature (If Indicated): Date CC: Cherri Patiño MD WRIST MIN 3 VIEWS Observed: 03/12/2018 Status: F Source: [place] 8:37 PM [facility] REPOSITORY [facility] Imaging Services [address] [place] [address] Wrist min 3 Views MR#: [id number] Acct: [id number] Name: NEGRITO BUSTAMANTE Rep #: [id number] : 1985 F 33 From: Tod Zamarripa MD PCP: Cherri Patiño MD Status: PRE ER Study: Wrist min 3 Views Date of Exam: 03/12/18 Exam# [id number] Ordering Dr: Provider, Ed P. STUDY: X-RAY [...] CC: ED PHYSICIAN PROVIDER; Cherri Patiño MD Target Aircraft Controller: Signed EMERGENCY DEPARTMENT Observed: 03/12/2018 Status: F Source: [place] SUMMARY 12:25 AM [facility] REPOSITORY [facility] Medical Records Department [address] [facility] [place] [address] Emergency Department Summary 03/09/18 1732 MR#: [id number] Acct: [id number] Name: NEGRITO BUSTAMANTE Romana Rep #: [id number] : 1985 33 From: iGovanni Feldman DO PCP: Cherri Patiño MD Status: [...] 1. Headache This note was generated with [employer] dictation software. It may contain incorrect words, [...] your Primary Care Provider. Call [facility] ([phone]) or report to the closest Emergency Room. Call 911 if necessary. 03/12/18 0025 <Electronically signed by Giovanni Feldman DO> Date Giovanni Feldman DO Cosigner Signature (If Indicated): Date CC: Cherri Patiño MD EMERGENCY DEPARTMENT Observed: 03/10/2018 Status: F Source: [place] SUMMARY 5:34 PM [facility] REPOSITORY [facility] Medical Records Department [address] [place] [address] Emergency Department Summary 03/10/18 1556 MR#: [id number] Acct: [id number] Name: NEGRITO BUSTAMANTE Rep #: [id number] : 1985 33 From: Ronen Vinson MD PCP: Cherri Patiño MD Status: REG ER History of [...] here which helped. Encouraged to take anti-inflammatories baqv-iqt-ecllsda at home as needed for pain. She [...] problems, contact your Primary Care Provider. Call [facility] ([phone]) or report to the closest Emergency Room. Call 911 if necessary. 03/10/18 1734 <Electronically signed by Ronen Vinson MD> Date Ronen Vinson MD Cosigner Signature (If Indicated): Date CC: Cherri Patiño MD WRIST MIN 3 VIEWS Observed: 03/10/2018 Status: F Source: [place] 3:48 PM [facility] REPOSITORY [facility] Imaging Services [address] [place] [address] Wrist min 3 Views MR#: [id number] Acct: [id number] Name: NEGRITO BUSTAMANTE Rep #: [id number] : 1985 F 33 From: Jefferson Schwab MD PCP: Cherri Patiño MD Status: REG ER Study: Wrist min 3 Views Date of Exam: 03/10/18 Exam# [id number] Ordering Dr: Ronen Vinson MD STUDY: X-RAY [...] CC: RONEN VINSON MD; Cherri Patiño MD Target Aircraft Controller: Signed ANKLE MIN 3 VIEWS Observed: 03/10/2018 Status: F Source: [place] 3:48 PM [facility] REPOSITORY [facility] Imaging Services [address] [place] [address] Ankle min 3 Views MR#: [id number] Acct: [id number] Name: NEGRITO BUSTAMANTE Rep #: [id number] : 1985 F 33 From: Jefferson Schwab MD PCP: Cherri Patiño MD Status: REG ER Study: Ankle min 3 Views Date of Exam: 03/10/18 Exam# [id number] Ordering Dr: Ronen Vinson MD STUDY: X-RAY [...] CC: RONEN VINSON MD; Cherri Patiño MD Target Aircraft Controller: Signed BRAIN/HEAD WITHOUT Observed: 03/10/2018 Status: F Source: [place] CONTRAST 3:48 PM [facility] REPOSITORY [facility] Imaging Services [address] [place] [address] Brain/Head without Contrast MR#: [id number] Acct: [id number] Name: NEGRITO BUSTAMANTE Rep #: [id number] : 1985 F 33 From: Kory Wiggins MD PCP: Cherri Patiño MD Status: REG ER Study: Brain/Head without Contrast Date of Exam: 03/10/18 Exam# [id number] Ordering Dr: Ronen Vinson MD STUDY: CT [...] CC: RONEN VINSON MD; Cherri Patiño MD Target Aircraft Controller: Signed DISCHARGE INSTRUCTION Observed: 02/02/2018 Status: F Source: [place] 2:19 AM [facility] REPOSITORY [facility] Medical Records Department [address] [place] [address] Discharge Instruction 02/02/18218 MR#: [id number] Acct: [id number] Name: NEGRITO BUSTAMANTE Rep #: [id number] : 1985 32 From: Jaclyn Rizo MD [...] problems, contact your Primary Care Provider. Call [facility] ([phone]) or report to the closest Emergency Room. Call 911 if necessary. 02/02/18218 <Electronically signed by Jaclyn Rizo MD> Date Jaclyn Rizo MD Cosigner Signature (If Indicated): Date CC: Cherri Patiño MD EMERGENCY DEPARTMENT Observed: 02/02/2018 Status: F Source: [place] SUMMARY 2:19 AM [facility] REPOSITORY [facility] Medical Records Department [address] [place] [address] Emergency Department Summary 02/01/18 2238 MR#: [id number] Acct: [id number] Name: NEGRITO BUSTAMANTE Rep #: [id number] : 1985 32 From: Jaclyn Rizo MD [...] wall cellulitis This note was generated with [employer] dictation software. It may contain incorrect words, [...] your Primary Care Provider. Call [facility] ([phone]) or report to the closest Emergency Room. Call 911 if necessary. 02/02/189 <Electronically signed by Jaclyn Rizo MD> Date Jaclyn Rizo MD Cosigner Signature (If Indicated): Date CC: Cherri Patiño MD CBC W/DIFF, AUTOMATED Collected: 02/01/2018 Status: F Source: [place] 10:45 PM [facility] REPOSITORY TYPE CODE TESTS RESULT OUT [...] Normal 1+ Performed By: #### L100.0100 #### [facility] [address] [place], [place], [address] BASIC METABOLIC Collected: 02/01/2018 Status: F Source: [place] PROFILE (BMP) 10:45 PM [facility] REPOSITORY TYPE CODE TESTS RESULT OUT [...] GAP 4 Performed By: #### L500.2500 #### [facility] [address] [facility] [place], [address] ,SERUM,HCG QUALI. Collected: Status: F Source: [place] 02/01/2018 10:45 PM [facility] REPOSITORY TYPE CODE TESTS RESULT OUT OF REFERENCE UNITS RANGE LAB L700.7000 0-9 Nonpreg Negative Normal HCGSQUAL NEGATIVE LAB L700.6700 =>Qualitative mIU/mL Normal HCG Qual < 1 triggr Performed By: #### L700.6800 #### [facility] [address] [facility] [place], [address] ABDOMEN/PELVIS WITH Observed: 02/01/2018 Status: F Source: [place] CONTRAST 10:37 PM [facility] REPOSITORY [facility] Imaging Services [address] [place] [address] Abdomen/Pelvis WITH Contrast MR#: [id number] Acct: [id number] Name: NEGRITO BUSTAMANTE Romana Rep #: [id number] : 1985 F 32 From: Kami Stapleton MD PCP: Cherri Patiño MD Status: REG ER Study: Abdomen/Pelvis WITH Contrast Date of Exam: 02/02/18 Exam# [id number] Ordering Dr: Jaclyn Rizo MD STUDY: CT [...] CC: Jaclyn Rizo MD; Cherri Patiño MD Target Aircraft Controller: Signed URINALYSIS, COMPLETE Collected: 02/01/2018 Status: F Source: [place] 10:20 PM [facility] REPOSITORY Order Comment: How was Urine Obtained? [...] URINE SEEN Performed By: #### L400.0001 #### [facility] [address] [place], [address] INTERNAL MEDICINE Observed: 02/01/2018 Status: F Source: [place] OFFICE VISIT 11:21 AM [facility] REPOSITORY [facility] [address] [place] [address] OFFICE VISIT Date of Service: 01/30/18 MR#: [id number] Acct: [id number] Name: NEGRITO BUSTAMANTE Rep #: [id number] : 1985 Provider: Blaine Gage NP Age/Sex: 32/F Location: [facility] [place] Status: Signed Intake Vital Signs01/30/18 Height 5 ft 10 in 01/30/18 Weight: 351 lb 01/30/18 Body Mass Index (BMI) 50.3 01/30/18 Blood Pressure 113/80 Intake Visit Reasons: back pain januaryq. Blaine Chief Complaint: back pain, swelling all over [...] EMERGENCY DEPARTMENT Observed: 01/30/2018 Status: F Source: [place] SUMMARY 11:22 PM [facility] REPOSITORY [facility] Medical Records Department [address] [place] [address] Emergency Department Summary 01/30/18 2317 MR#: [id number] Acct: [id number] Name: NEGRITO BUSTAMANTE Rep #: [id number] : 1985 32 From: Nirmal Chandra MD [...] abnormal menses and was told by her child development director Dr. Hayes that she will continue to [...] bowel movement This note was generated with [employer] software. It may contain incorrect words, spelling, [...] your Primary Care Provider. Call [facility] ([phone]) or report to the closest Emergency Room. Call 911 if necessary. 01/30/182 <Electronically signed by Nirmal Chandra MD> Date Nirmal Chandra MD Cosigner Signature (If Indicated): Date CC: Cherri Patiño MD URINALYSIS, COMPLETE Collected: 01/30/2018 Status: F Source: [place] 9:50 PM [facility] REPOSITORY Order Comment: Order Date: 01/30/18 Has [...] URINE SEEN Performed By: #### L400.0001 #### [facility] [address] [place], [address] BASIC METABOLIC Collected: 01/30/2018 Status: F Source: [place] PROFILE (BMP) 9:38 PM [facility] REPOSITORY TYPE CODE TESTS RESULT OUT [...] GAP 4 Performed By: #### L500.2500 #### [facility] [address] [place], [address] INTERNAL MEDICINE Observed: 01/03/2018 Status: F Source: [place] OFFICE VISIT 1:35 PM [facility] REPOSITORY [facility] [address] [place] [address] OFFICE VISIT Date of Service: 01/02/18 MR#: [id number] Acct: [id number] Name: NEGRITO BUSTAMANTE Rep #: [id number] : 1985 Provider: Blaine Gage NP Age/Sex: 32/F Location: [facility] [place] Status: Signed Intake Vital Signs01/03/18 Body Mass [...] relief. She has been seen by multiple instructor painting and an MRI was done in August [...] oriented x3 Limitations: mental status not altered [facility] Head: normal to inspection Ears: [...] will have to be made from her instructor painting. Did inform patient as well that since [...] EMERGENCY DEPARTMENT Observed: 12/26/2017 Status: F Source: [place] SUMMARY 2:20 AM [facility] REPOSITORY [facility] Medical Records Department [address] [place] [address] Emergency Department Summary 12/25/17 2243 MR#: [id number] Acct: [id number] Name: NEGRITO BUSTAMANTE Rep #: [id number] : 1985 32 From: Veronika Lea MD [...] Impression: Cephalgia This note was generated with [employer] dictation software. It may contain incorrect words, [...] problems, contact your Primary Care Provider. Call [facility] ([phone]) or report to the closest Emergency Room. Call 911 if necessary. 12/26/17 0220 <Electronically signed by Veronika Lea MD> Date Veronika Lea MD Cosigner Signature (If Indicated): Date CC: Cherri Patiño MD DISCHARGE INSTRUCTION Observed: 12/26/2017 Status: F Source: [place] 2:20 AM [facility] REPOSITORY [facility] Medical Records Department [address] [facility] [place] [address] Discharge Instruction 12/26/17 0037 MR#: [id number] Acct: [id number] Name: NEGRITO BUSTAMANTE Rep #: [id number] : 1985 32 From: Veronika Lea MD [...] your Primary Care Provider. Call [facility] ([phone]) or report to the closest Emergency Room. Call 911 if necessary. 12/26/17 0220 <Electronically signed by Veronika Lea MD> Date Veronika Lea MD Cosigner Signature (If Indicated): Date CC: Cherri Patiño MD BRAIN/HEAD WITHOUT Observed: 12/25/2017 Status: F Source: [place] CONTRAST 10:42 PM [facility] REPOSITORY [facility] Imaging Services [address] [place] [address] Brain/Head without Contrast MR#: [id number] Acct: [id number] Name: NEGRITO BUSTAMANTE Rep #: [id number] : 1985 F 32 From: Subha Valentin MD PCP: Cherri Patiño MD Status: REG ER Study: Brain/Head without Contrast Date of Exam: 12/25/17 Exam# [id number] Ordering Dr: Veronika Lea MD CT Head [...] CC: Cherri Patiño MD; Veronika Lea MD Target Aircraft Controller: Signed CT HEAD OR BRAIN W/O Observed: 10/20/2017 Status: F Source: [place] CONTRAST 8:50 PM [facility] ORIGINAL CT HEAD OR BRAIN W/O [...] Source: [place] OR 3 VIEWS 8:50 PM [facility] REPOSITORY ORIGINAL XR SPINE LUMBOSACRAL 2 OR [...] THORACIC 2 Observed: 10/20/2017 Status: F Source: [place] VIEWS 8:50 PM [facility] REPOSITORY ORIGINAL XR SPINE THORACIC 2 VIEWS [...] EMERGENCY DEPARTMENT Observed: 10/14/2017 Status: F Source: [place] SUMMARY 12:55 AM [facility] REPOSITORY [facility] Medical Records Department [address] [place] [address] Emergency Department Summary 10/13/17 1502 MR#: [id number] Acct: [id number] Name: NEGRITO BUSTAMANTE Rep #: [id number] : 1985 32 From: Romeo Morton MD [...] back pain. This note was generated with [employer] dictation software. It may contain incorrect words, [...] your Primary Care Provider. Call [facility] ([phone]) or report to the closest Emergency Room. Call 911 if necessary. 10/14/17 0055 <Electronically signed by Romeo Morton MD> Date Romeo Morton MD Cosigner Signature (If Indicated): Date CC: Cherri Patiño MD XR CHEST 1 VIEW Observed: 10/08/2017 Status: F Source: [place] 12:14 AM [facility] REPOSITORY ORIGINAL XR CHEST 1 VIEW CLINICAL [...] INTERNAL MEDICINE Observed: 10/07/2017 Status: F Source: [place] OFFICE VISIT 10:47 AM [facility] [address] [facility] [address] [place] [address] OFFICE VISIT Date of Service: 10/06/17 MR#: [id number] Acct: [id number] Name: NEGRITO BUSTAMANTE Rep #: [id number] : 1985 Provider: Blaine Gage NP Age/Sex: 32/F Location: [facility] [place] Status: Signed Intake Vital Signs10/06/17 Height 5 [...] month. The patient was seen and evaluated [facility] emergency department on 09/26/2017 and 09/28/2017 and [...] oriented x3 Limitations: mental status not altered [facility] Head: normal to inspection Ears: [...] AND LATERAL Observed: 10/06/2017 Status: F Source: [place] 3:40 PM [facility] REPOSITORY [facility] Imaging Services [address] [place] [address] [place] [address] Chest PA and Lateral MR#: [id number] Acct: [id number] Name: NEGRITO BUSTAMANTE Romana Rep #: [id number] : 1985 F 32 From: Ej Sam MD PCP: Cherri Patiño MD Status: REG CLI Study: Chest PA and Lateral Date of Exam: 10/06/17 Exam# [id number] Ordering Dr: Blaine Gage STUDY: X-RAY CHEST REASON FOR EXAM: Female, [...] Ej Sam MD at 16:00 EST Tel [phone], Service support , CC: Cherri Patiño MD; Blaine Gage NP Target Aircraft Controller: Signed EMERGENCY DEPARTMENT Observed: 09/28/2017 Status: F Source: [place] SUMMARY 2:32 PM [facility] Medical Records Department [address] [place] [address] Emergency Department Summary 09/28/17 1425 MR#: [id number] Acct: [id number] Name: NEGRITO BUSTAMANTE Rep #: [id number] : 1985 32 From: Nirmal Chandra MD [...] admission that she [facility] have [facility] to [facility]. She stated I had a friend who was seen here and you guys did not think. She went to [facility] and she was admitted. Disposition: Discharge to home in stable and improved condition Impression: 1. Community acquired pneumonia, right middle lobe 2. Bronchospasm secondary #1 This note was generated with [employer] dictation software. It may contain incorrect words, [...] your Primary Care Provider. Call [facility] ([phone]) or report to the closest Emergency Room. Call 911 if necessary. 09/28/17 1432 <Electronically signed by Nirmal Chandra MD> Date Nirmal Chandra MD Cosigner Signature (If Indicated): Date CC: Cherri Patiño MD DISCHARGE INSTRUCTION Observed: 09/26/2017 Status: F Source: [place] 2:35 PM [facility] REPOSITORY [facility] Medical Records Department [address] [place] [address] Discharge Instruction 09/26/17 1433 MR#: [id number] Acct: [id number] Name: NEGRITO BUSTAMANTE Rep #: [id number] : 1985 32 From: Kalie Montgomery PCP: [...] your Primary Care Provider. Call [facility] ([phone]) or report to the closest Emergency Room. Call 911 if necessary. 09/26/17 1435 <Electronically signed by Kalie Montgomery > Date Kalie Montgomery Cosigner Signature (If Indicated): Date CC: Cherri Patiño MD EMERGENCY DEPARTMENT Observed: 09/26/2017 Status: F Source: [place] SUMMARY 2:33 PM [facility] REPOSITORY [facility] Medical Records Department [address] [place] [address] Emergency Department Summary 09/26/17 1250 MR#: [id number] Acct: [id number] Name: NEGRITO BUSTAMANTE Rep #: [id number] : 1985 32 From: Kalie Montgomery PCP: [...] acquired pneumonia] This note was generated with [employer] dictation software. It may contain incorrect words, [...] your Primary Care Provider. Call [facility] ([phone]) or report to the closest Emergency Room. Call 911 if necessary. 09/26/17 1433 <Electronically signed by Kalie Montgomery > Date Kalie Montgomery Cosigner Signature (If Indicated): Date CC: Cherri Patiño MD CHEST PA AND LATERAL Observed: 09/26/2017 Status: F Source: [place] 12:48 PM [facility] REPOSITORY [facility] Imaging Services [address] [place] [address] Chest PA and Lateral MR#: [id number] Acct: [id number] Name: NEGRITO BUSTAMANTE Rep #: [id number] : 1985 F 32 From: Ej Sam MD PCP: Cherri Patiño MD Status: REG ER Study: Chest PA and Lateral Date of Exam: 09/26/17 Exam# [id number] Ordering Dr: Kalie Montgomery STUDY: X-RAY CHEST [...] Ej Sam MD at 14:02 EST Tel [phone], Service support , CC: Kalie Montgomery; Cherri Patiño MD Target Aircraft Controller: Signed Observed: 09/26/2017 Status: F Source: [place] INFLUENZA A+B (RAPID 12:45 PM [facility]) REPOSITORY Order Date: 09/26/17 FLU A/B Rapid Negative test results should be confirmed by culture. Order Rapid Viral Culture for Influenzae A+B ([id number]) if clinically indicated. Influenza Ag, Direct Presumptive NEGATIVE for Influenza A/B Antigen (See Note) Performed By: #### M101.0101 #### [facility] [address], [address] EMERGENCY DEPARTMENT Observed: 09/20/2017 Status: F Source: [place] SUMMARY 12:26 AM [facility] REPOSITORY [facility] Medical Records Department [address] [place] [address] Emergency Department Summary 09/19/17 1936 MR#: [id number] Acct: [id number] Name: NEGRITO BUSTAMANTE Rep #: [id number] : 1985 32 From: Romeo Morton MD [...] uncertain cause. This note was generated with [employer] software. It may contain incorrect words, spelling, [...] your Primary Care Provider. Call [facility] ([phone]) or report to the closest Emergency Room. Call 911 if necessary. 09/20/17 0026 <Electronically signed by Romeo Morton MD> Date Romeo Morton MD Cosigner Signature (If Indicated): Date CC: Cherri Patiño MD URINALYSIS, COMPLETE Collected: 09/19/2017 Status: F Source: [place] 7:30 PM [facility] REPOSITORY Order Comment: Order Date: 09/19/17 How [...] URINE 2+ Performed By: #### L400.0001 #### [facility] [address] [place], [address] CBC W/DIFF, AUTOMATED Collected: 09/19/2017 Status: F Source: [place] 5:40 PM [facility] REPOSITORY TYPE CODE TESTS RESULT OUT [...] Normal RARE Performed By: #### L100.0100 #### [facility] [address] [place], [address] BASIC METABOLIC Collected: 09/19/2017 Status: F Source: [place] PROFILE ([facility]) 5:40 PM [facility] REPOSITORY TYPE CODE TESTS RESULT OUT [...] Normal 7 Performed By: #### L500.2500 #### [facility] [address] [facility] [place], [address] ,SERUM,HCG QUALI. Collected: Status: F Source: [place] 09/19/2017 5:40 PM [facility] REPOSITORY TYPE CODE TESTS RESULT OUT OF REFERENCE UNITS RANGE LAB L700.7000 0-9 Nonpreg Negative Normal HCGSQUAL NEGATIVE LAB L700.6700 =>Qualitative mIU/mL Normal HCG Qual < 1 triggr Performed By: #### L700.6800 #### [facility] [address] [facility] [place], [address] ABDOMEN/PELVIS WITHOUT Observed: 09/19/2017 Status: F Source: [place] CONT 5:30 PM [facility] REPOSITORY [facility] Imaging Services [address] [place] [address] Abdomen/Pelvis without Cont MR#: [id number] Acct: [id number] Name: NEGRITO BUSTAMANTE Rep #: [id number] : 1985 F 32 From: Jose Alberto Kenney DO PCP: Cherri Patiño MD Status: REG ER Study: Abdomen/Pelvis without Cont Date of Exam: 09/19/17 Exam# [id number] Ordering Dr: Romeo Morton MD STUDY: CT [...] Alberto Kenney DO at 18:57 EST Tel [phone], Service support , CC: Cherri Patiño MD; Romeo Morton MD Target Aircraft Controller: Signed EMERGENCY DEPARTMENT Observed: 09/13/2017 Status: F Source: [place] SUMMARY 12:39 AM [facility] Medical Records Department [address] [place] [address] Emergency Department Summary 09/12/17 1600 MR#: [id number] Acct: [id number] Name: NEGRITO BUSTAMANTE Rep #: [id number] : 1985 32 From: Yina Owen MD [...] Flexeril. These will be sent to drug [place] for her. Treatment Plan: [] Disposition: Discharge Impression: Muscle spasm, right sternomastoid. This note was generated with [employer] dictation software. It may contain incorrect words, [...] your Primary Care Provider. Call [facility] ([phone]) or report to the closest Emergency Room. Call 911 if necessary. 09/13/17 0039 <Electronically signed by Yina Owen MD> Date Yina Owen MD Cosigner Signature (If Indicated): Date CC: Cherri Patiño MD DISCHARGE INSTRUCTION Observed: 09/12/2017 Status: F Source: NOY 4:04 PM [facility] REPOSITORY [facility] Medical Records Department [address] [place] [address] Discharge Instruction 09/12/17 1602 MR#: [id number] Acct: [id number] Name: NEGRITO BUSTAMANTE Rep #: [id number] : 1985 32 From: iYna Owen MD PCP: Cherri Patiño MD Status: [...] your Primary Care Provider. Call [facility] ([phone]) or report to the closest Emergency Room. Call 911 if necessary. 09/12/17 1604 <Electronically signed by Yina Owen MD> Date Yina Owen MD Cosigner Signature (If Indicated): Date CC: Cherri Patiño MD ALLERGIES ALLERGIES DATE TYPE / CODE NAME / CODE REACTION SEVERITY SOURCE 08/31/2018 Drug bupropion MAKES ANXIETY Unknown [place] Allergy/416 HCl/[id number](RXN WORSE [place] [address] Repository 08/31/2018 Drug ceftriaxone Hives Unknown [place] Allergy/416 sodium/[id number]( [place] [address]([facility] ED CT) Repository 08/31/2018 Drug tramadol/[id number] Hives Unknown [place] Allergy/416 0(RXNORM) [facility] [id number]([facility] ED CT) Repository ENCOUNTERS ENCOUNTERS ADMIT/DISCHARGE ACCOUNT NUMBER ADMITTING ENCOUNTER LOCATION SOURCE CLASS 08/31/2018/08/31/19 [id number] Emergency [address] ding:ED Repository 08/05/2018/08/05/20 [id number] Emergency [place] ding:ED Repository 07/19/2018 [id number] Ambulatory [facility] ding:POLAB3 Repository 07/09/2018 [id number] Ambulatory [facility] ding:PSN Repository 06/19/2018/06/19/20 [id number] Emergency [address] ding:ED Repository 06/04/2018 [id number] Ambulatory [facility] ding:SL Repository 05/21/2018 [id number] Ambulatory [facility] ding:LAB.FUT Repository URE 05/17/2018 [id number] Ambulatory [facility] ding:PSN Repository 05/15/2018 [id number] Ambulatory [facility] ding:PSN Repository 05/13/2018/05/13/20 [id number] Emergency [address] ding:ED Repository 04/25/2018 [id number] Ambulatory [facility] ding:SL Repository 04/25/2018 [id number] Ambulatory [facility] ding:POLAB3 Repository 04/19/2018 [id number] Ambulatory [facility] ding:POLAB3 Repository 04/17/2018/04/17/20 [id number] Ambulatory BMSBuilding: [place] [address] Repository 04/11/2018 [id number] Ambulatory BMSBuilding: [facility] Repository 04/10/2018/04/12/20 [id number] Svitlana Chicas Inpatient [place] 18 Mer Encounter [facility] ding:KA8Gtvn Repository : WG443Gfp: 1 04/10/2018 [id number] Svitlana Chicas Ambulatory BMSBuilding: [place] Mer BMS.[facility] Repository 04/10/2018 [id number] Svitlana Chicas Ambulatory BMSBuilding: [place] Mer BMS.[facility] Repository 04/10/2018 [id number] Svitlana Chicas Ambulatory BMSBuilding: [place] Mer BMS.[facility] Repository 04/10/2018 [id number] Ambulatory [facility] ding:RAD Repository 04/10/2018/04/10/20 [id number] Ambulatory BMSBuilding: [place] 18 [facility]MS.[facility] Repository 04/04/2018/04/04/20 [id number] Ambulatory BMSBuilding: [place] 18 [facility]MS.[facility] Repository 03/27/2018 [id number] Ambulatory [facility] ding:LAB Repository 03/27/2018/03/27/20 [id number] Ambulatory BMSBuilding: [place] 18 BMS.[facility] Repository 03/26/2018 [id number] Ambulatory BMSBuilding: [place] [facility]MS[facility] Repository 03/12/2018/03/12/20 [id number] Emergency [address] ding:ED Repository 03/10/2018/03/10/20 [id number] Emergency [address] ding:ED Repository 03/09/2018/03/09/20 [id number] Emergency [address] ding:ED Repository 03/06/2018/03/06/20 [id number] Ambulatory [address] ding:OT Repository 02/02/2018/02/03/20 [id number] Emergency BBuilding:ESME Adams [address] [place] [address] Repository 02/01/2018/02/03/20 [id number] Emergency [address] ding:ED Repository 01/30/2018/01/31/20 [id number] Emergency [place] ding:ED Repository 01/30/2018/01/31/20 [id number] Ambulatory BMSBuilding: [place] 18 [facility]MS[facility] [place]ository 01/19/2018 [id number] [place] [facility] [place] ng:H.PM 01/02/2018/01/03/20 [id number] Ambulatory BMSBuilding: [place] 18 [facility] Repository 12/25/2017/12/27/19 [id number] Emergency [place] ding:ED Repository 11/23/2017 [id number] [place] [facility] [place] ng:H.PM 10/26/2017 [id number] Ambulatory [facility] ding:PSN Repository 10/20/2017/10/21/19 [id number] Emergency BBuilding:ER [address] Repository 10/19/2017 [id number] Ambulatory BMSBuilding: [place] [facility] Repository 10/13/2017/10/14/19 [id number] Emergency BBuilding:ER [address] Repository 10/13/2017/10/14/19 [id number] Emergency [place] ding:ED Repository 10/07/2017/10/08/19 [id number] Emergency BBuilding:ER [address] Repository 10/06/2017 [id number] Ambulatory [facility] ding:MTRAD Repository 10/06/2017/10/06/19 [id number] Ambulatory BMSBuilding: [place] 18 [facility] Repository 10/05/2017 [id number] [place] [facility] [place] ng:H.PM 09/28/2017/09/28/19 [id number] Emergency [place] ding:ED Repository 09/26/2017/09/26/19 [id number] Emergency [place] ding:ED Repository 09/19/2017/09/19/19 [id number] Emergency [place] ding:ED Repository 09/12/2017/09/12/19 [id number] Emergency [place] ding:ED Repository PAYERS PAYERS ENCOUNTER GUARANTOR PAYER SUBSCRIBER SOURCE 08/31/2018 NEGRITO L Primary NEGRITO L [place] [id number] [place] Insurance:CARESOURCEP HAYNESDOB: [facility] Number: [id number] Hospital [address]Fvy: ([phone]) [id number] Repository [phone] () Date:2018-08-31[address]ATTN: [place] [address]KZ: 08/31/2018 Secondary NOT GIVENUNK [place] Insurance:SELF PAY [facility] Number: Effective Repository Date:2018-08-31 08/05/2018 NEGRITO L Primary NEGRITO L [place] [id number] [place] Insurance:CARESOURCEP HAYNESDOB: [facility] Number: [id number] Hospital [address]Xca: [phone]) [id number] Repository [phone] () Date:2018-08-05[address]ATTN: [place] [address]GF: 08/05/2018 Secondary NOT GIVENUNK [place] Insurance:SELF PAY [facility] Number: Effective Repository Date:2018-08-05 07/19/2018 NEGRITO L Primary NEGRITO L [place] [id number] [place] Insurance:CARESOURCEP HAYNESDOB: [facility] Number: [id number] Hospital [address]Wbq: ([phone]) [id number] Repository [phone] () Date:2018-07-19[address]ATTN: [place] [address]WA: 07/19/2018 Secondary NOT GIVENUNK [place] Insurance:SELF PAY [facility] Number: Effective Repository Date:2018-07-19 07/09/2018 NEGRITO L Primary NEGRITO L [place] [id number] [place] Insurance:CARESOURCEP HAYNESDOB: [facility] Number: [id number] Hospital [address]Gls: (074) [id number] Repository [phone] () Date:2018-07-09[address]ATTN: [place] [address]BB: 07/09/2018 Secondary NOT GIVENUNK [place] Insurance:SELF PAY [facility] Number: Effective Repository Date:2018-07-09 06/19/2018 NEGRITO L Primary NEGRITO L [place] [id number] [place] Insurance:CARESOURCEP HAYNESDOB: [facility] Number: [id number] Hospital 39662Jwk: ([phone]) [id number] Repository [phone] () Date:2018-06-19[address]ATTN: [place] [address]NK: 06/19/2018 Secondary NOT GIVENUNK [place] Insurance:SELF PAY [facility] Number: Effective Repository Date:2018-06-19 06/04/2018 NEGRIOT L Primary NEGRITO L [place] [id number] [place] Insurance:CARESOURCEP HAYNESDOB: [facility] Number: [id number] Hospital 19439Lxj: (201) [id number] Repository [phone] () Date:2018-05-10[address]ATTN: [place] [address]LY: 06/04/2018 Secondary NOT GIVENUNK [place] Insurance:SELF PAY [facility] Number: Effective Repository Date:2018-05-10 05/21/2018 NEGRITO L Primary NEGRITO L [place] [id number] [place] Insurance:CARESOURCEP HAYNESDOB: [facility] Number: [id number] Hospital 76789Vep: ([phone]) [id number] Repository [phone] () Date:2018-04-26[address]ATTN: [place] [address]EL: 05/21/2018 Secondary NOT GIVENUNK [place] Insurance:SELF PAY [facility] Number: Effective Repository Date:2018-04-26 05/17/2018 NEGRITO L Primary NEGRITO L [place] [id number] [place] Insurance:CARESOURCEP HAYNESDOB: [facility] Number: [id number] Hospital [address]Dyx: (249) [id number] Repository [phone] () Date:2018-04-17[address]ATTN: [place] [address]UH: 05/17/2018 Secondary NOT GIVENUNK [place] Insurance:SELF PAY [facility] Number: Effective Repository Date:2018-04-17 05/15/2018 NEGRITO L Primary NEGRITO L [place] [id number] [place] Insurance:CARESOURCEP HAYNESDOB: [facility] Number: [id number] Hospital 132[address]Mbp: [phone]) [id number] Repository [phone] () Date:2018-04-17[address]ATTN: [place] [address]OL: 05/15/2018 Secondary NOT GIVENUNK [place] Insurance:SELF PAY [facility] Number: Effective Repository Date:2018-04-17 05/13/2018 NEGRITO L Primary NEGRITO L [place] [id number] [place] Insurance:CARESOURCEP HAYNESDOB: [facility] Number: [id number] Hospital 01945Kxc: ([phone]) [id number] Repository [phone] () Date:2018-05-13[address]ATTN: [place] [address]EI: 05/13/2018 Secondary NOT GIVENUNK [place] Insurance:SELF PAY [facility] Number: Effective Repository Date:2018-05-13 04/25/2018 NEGRITO L Primary NEGRITO L [place] [id number] [place] Insurance:CARESOURCEP HAYNESDOB: [facility] Number: [id number] Hospital 690[address]Dcs: [phone]) [id number] Repository [phone] () Date:2018-04-18 [address]ATTN: [place] [address]WE: 04/25/2018 Secondary NOT GIVENUNK [place] Insurance:SELF PAY [facility] Number: Effective Repository Date:2018-04-18 04/25/2018 NEGRITO L Primary NEGRITO L [place] [id number] [place] Insurance:CARESOURCEP HAYNESDOB: [facility] Number: [id number] Hospital 61169Bjr: ([phone]) [id number] Repository [phone] () Date:2018-04-25 [address]ATTN: [place] [address]CY: 04/25/2018 Secondary NOT GIVENUNK [place] Insurance:SELF PAY [facility] Number: Effective Repository Date:2018-04-25 04/19/2018 NEGRITO L Primary NEGRITO L [place] [id number] [place] Insurance:CARESOURCEP HAYNESDOB: [facility] Number: [id number] Hospital 25311Qkj: ([phone]) [id number] Repository [phone] () Date:2018-04-19 [address]ATTN: [place] [address]RF: 04/19/2018 Secondary NOT GIVENUNK [place] Insurance:SELF PAY [facility] Number: Effective Repository Date:2018-04-19 04/17/2018 NEGRITO L Primary NEGRITO L [place] [id number] [place] Insurance:CARESOURCEP HAYNESDOB: [facility] Number: [id number] Hospital 6[address]Pni: ([phone]) [id number] Repository [phone] () Date:2018-04-13 [address]ATTN: [place] [address]JB: 04/17/2018 Secondary NOT GIVENUNK [place] Insurance:SELF PAY [facility] Number: Effective Repository Date:2018-04-13 04/11/2018 NEGRITO L Primary NEGRITO L [place] [id number] [place] Insurance:CARESOURCEP HAYNESDOB: [facility] Number: [id number] Hospital 06348Ieq: ([phone]) [id number] Repository [phone] () Date:2016-12-12 [address]ATTN: CLAIMS [place] [address]WP: 04/11/2018 Secondary NOT GIVENUNK [place] Insurance:SELF PAY [facility] Number: Effective Repository Date:2018-04-11 04/10/2018 NEGRITO L Primary NEGRITO L [place] [id number] [place] Insurance:CARESOURCEP HAYNESDOB: [facility] Number: [id number] Hospital 98448Eou: ([phone]) [id number] Repository [phone] () Date:2016-12-12 [address]N: [place] [address]IP: 04/10/2018 Secondary NOT GIVENUNK [place] Insurance:SELF PAY [facility] Number: Effective Repository Date:2018-04-10 04/10/2018 NEGRITO L Primary NEGRITO L [place] [id number] [place] Insurance:CARESOURCEP HAYNESDOB: [facility] Number: [id number] Hospital 65805Uyz: (145) [id number] Repository [phone] (HP) Date:2018-04-10[address]ATTN: [place] [address]XS: 04/10/2018 Secondary NOT GIVENUNK [place] Insurance:SELF PAY [facility] Number: Effective Repository Date:2018-04-10 04/10/2018 NEGRITO L Primary NEGRITO L [place] [id number] [place] Insurance:CARESOURCEP HAYNESDOB: [facility] Number: [id number] Hospital 46704Trk: ([phone]) [id number] Repository [phone] () Date:2016-12-12 [address]ATTN: [place] [address]HS: 04/10/2018 Secondary NOT GIVENUNK [place] Insurance:SELF PAY [facility] Number: Effective Repository Date:2018-04-10 04/10/2018 NEGRITO L Primary NEGRITO L [place] [id number] [place] Insurance:CARESOURCEP HAYNESDOB: [facility] Number: [id number] Hospital 55[address]Ppd: ([phone]) [id number] Repository [phone] () Date:2016-12-12 [address]N: [place] [address]HU: 04/10/2018 Secondary NOT GIVENUNK [place] Insurance:SELF PAY [facility] Number: Effective Repository Date:2018-04-10 04/10/2018 NEGRITO L Primary NEGRITO L [place] [id number] [place] Insurance:CARESOURCEP HAYNESDOB: [facility] Number: [id number] Hospital 928[address]Cup: ([phone]) [id number] Repository [phone] () Date:2018-04-10[address]ATTN: [place] [address]DG: 04/10/2018 Secondary NOT GIVENUNK [place] Insurance:SELF PAY [facility] Number: Effective Repository Date:2018-04-10 04/10/2018 NEGRITO L Primary NEGRITO L [place] [id number] [place] Insurance:CARESOURCEP HAYNESDOB: [facility] Number: [id number] Hospital 99[address]Pba: (393) [id number] Repository [phone] () Date:2018-04-09[address]ATTN: [place] [address]YJ: 04/10/2018 Secondary NOT GIVENUNK [place] Insurance:SELF PAY [facility] Number: Effective Repository Date:2018-04-10 04/04/2018 NEGRITO L Primary NEGRITO L [place] [id number] [place] Insurance:CARESOURCEP HAYNESDOB: [facility] Number: [id number] Hospital 04191Kvs: (183) [id number] Repository [phone] () Date:2018-04-03[address]ATTN: [place] [address]OI: 04/04/2018 Secondary NOT GIVENUNK [place] Insurance:SELF PAY [facility] Number: Effective Repository Date:2018-04-04 03/27/2018 NEGRITO L Primary NEGRITO L [place] [id number] [place] Insurance:CARESOURCEP HAYNESDOB: [facility] Number: [id number] Hospital 12067Svk: ([phone]) [id number] Repository [phone] () Date:2018-03-27[address]ATTN: [place] [address]AI: 03/27/2018 Secondary NOT GIVENUNK [place] Insurance:SELF PAY [facility] Number: Effective Repository Date:2018-03-27 03/27/2018 NEGRITO L Primary NEGRITO L [place] [id number] [place] Insurance:CARESOURCEP HAYNESDOB: [facility] Number: [id number] Hospital 96629Xxz: ([phone]) [id number] Repository [phone] () Date:2018-03-26[address]ATTN: [place] [address]MP: 03/27/2018 Secondary NOT GIVENUNK [place] Insurance:SELF PAY [facility] Number: Effective Repository Date:2018-03-26 03/26/2018 NEGRITO L Primary NEGRITO L [place] [id number] [place] Insurance:CARESOURCEP HAYNESDOB: [facility] Number: [id number] Hospital 13529Wpv: (235) [id number] Repository [phone] () Date:2018-03-26[address]ATTN: [place] [address]YB: 03/26/2018 Secondary NOT GIVENUNK [place] Insurance:SELF PAY [facility] Number: Effective Repository Date:2018-03-26 03/12/2018 NEGRITO L Primary NEGRITO L [place] [id number] [place] Insurance:CARESOURCEP HAYNESDOB: [facility] Number: [id number] Hospital 46364Rjs: ([phone]) [id number] Repository [phone] () Date:2018-03-12[address]ATTN: [place] [address]UO: 03/12/2018 Secondary NOT GIVENUNK [place] Insurance:SELF PAY [facility] Number: Effective Repository Date:2018-03-12 03/10/2018 NEGRITO L Primary NEGRITO L [place] [id number] [place] Insurance:CARESOURCEP HAYNESDOB: [facility] Number: [id number] Hospital 505[address]Fkm: (676) [id number] Repository [phone] () Date:2018-03-10[address]ATTN: [place] [address]HX: 03/10/2018 Secondary NOT GIVENUNK [place] Insurance:SELF PAY [facility] Number: Effective Repository Date:2018-03-10 03/09/2018 NEGRITO L Primary NEGRITO L [place] [id number] [place] Insurance:CARESOURCEP HAYNESDOB: [facility] Number: [id number] Hospital 31778Dgn: (479) [id number] Repository [phone] () Date:2018-03-09[address]ATTN: [place] [address]RH: 03/09/2018 Secondary NOT GIVENUNK [place] Insurance:SELF PAY [facility] Number: Effective Repository Date:2018-03-09 03/06/2018 NEGRITO L Primary NEGRITO L [place] [id number] [place] Insurance[facility] ROSEVILLEDOB: [facility] Number: [id number] Hospital 55233Eiw: 850 [id number] Repository [phone] () Date:2016-12-12[address]ATTN: [place] [address]IX: 03/06/2018 Secondary NOT GIVENUNK [place] Insurance:SELF PAY [facility] Number: Effective Repository Date:2018-02-09 02/02/2018 [facility] L [facility] MEDICAIDPolicy [id number] Repository [place] Number: [place] [id number] [place], [place] [address]Gws: 850) Date:2018-02-02 907[address]Adb: () [id number] Name:[address] ()Tel: [phone]) [place], [place] [address] () [address]SW: 02/01/2018 NEGRITO L Primary NEGRITO L [place] [id number] [place] Insurance:CARESOURCEP HAYNESDOB: [facility] Number: [id number] Hospital 211[address]Fjx: ([phone]) [id number] Repository [phone] () Date:2018-02-01[address]ATTN: [place] [address]ZH: 02/01/2018 Secondary NOT GIVENUNK [place] Insurance:SELF PAY [facility] Number: Effective Repository Date:2018-02-01 01/30/2018 NEGRITO L Primary NEGRITO L [place] [id number] [place] Insurance:CARESOURCEP HAYNESDOB: [facility] Number: [id number] Hospital 40753Ywe: 850 [id number] Repository [phone] () Date:2018-01-30P [address]N: [place] [address]NU: 01/30/2018 Secondary NOT GIVENUNK [place] Insurance:SELF PAY [facility] Number: Effective Repository Date:2018-01-30 01/30/2018 NEGRITO L Primary NEGRITO L [place] [id number] [place] Insurance:CARESOURCEP HAYNESDOB: [facility] Number: [id number] Hospital 10588Lpf: ([phone]) [id number] Repository [phone] () Date:2018-01-26[address]ATTN: [place] [address]JC: 01/30/2018 Secondary NOT GIVENUNK [place] Insurance:SELF PAY [facility] Number: Effective Repository Date:2018-01-30 01/19/2018 NEGRITO Primary NEGRITO [facility] [id number] [place] Insurance:CARESOURCEP Number: Repository 614[address]Qtr: (605) [id number] 06 () Date:2016-12-12[address], [place] [address]FK: 01/02/2018 NEGRITO L Primary NEGRITO L [place] [id number] [place] Insurance:CARESOURCEP HAYNESDOB: [facility] Number: [id number] Hospital 87155Tbp: ([phone]) [id number] Repository [phone] () Date:2017-12-25 [address]ATTN: [place] [address]KO: 01/02/2018 Secondary NOT GIVENUNK [place] Insurance:SELF PAY [facility] Number: Effective Repository Date:2018-01-02 12/25/2017 NEGRITO L Primary NEGRITO L [place] [id number] [place] Insurance:CARESOURCEP HAYNESDOB: [facility] Number: [id number] Hospital 35973Vnk: 850 [id number] Repository [phone] () Date:2017-12-25 [address]ATTN: [place] [address]KO: 12/25/2017 Secondary NOT GIVENUNK [place] Insurance:SELF PAY [facility] Number: Effective Repository Date:2017-12-25 11/23/2017 NEGRITO Primary NEGRITO [facility] Medical [id number] [place] Insurance:[facility] Number: Repository [address]Odn: 850 [id number] [phone] () Date:2016-12-12[address], [place] [address]PL: 10/26/2017 NEGRITO L Primary NEGRITO L [place] [id number] [place] Insurance:CARESOURCEP HAYNESDOB: [facility] Number: [id number] Hospital 8[address]Ihi: ([phone]) [id number] Repository [phone] () Date:2017-10-06 [address]ATTN: [place] [address]RU: 10/26/2017 Secondary NOT GIVENUNK [place] Insurance:SELF PAY [facility] Number: Effective Repository Date:2017-10-06 10/20/2017 NEGRITO L Primary NEGRITO [facility] HAYNESDOB: Insurance:CARESOURCE HAYNESDOB: [facility] MEDICAIDPolicy [id number] Repository [place] Number: LYDIA STRAUSS [place] [id number] [facility] CARE SERVICESINÉSSWAN [place], [place] [address]Iql: ([phone]) Date:2017-10-20Tel: () [id number] [phone] Name:[address] ()Tel: [phone]) [address], [place] [phone] () [address]RZ: 10/19/2017 NEGRITO L Primary NEGRITO [place]ana [place] [id number] [place] Insurance:CARESOURCEP HAYNESDOB: [facility] Number: [id number] Hospital 777[address]Hoe: (492) [id number] Repository [phone] () Date:2017-10-05 [address]ATTN: [place] [address]DR: 10/19/2017 Secondary NOT GIVENUNK [place] Insurance:SELF PAY [facility] Number: Effective Repository Date:2017-10-05 10/13/2017 NEGRITO L Primary NEGRITO [facility] HAYNESDOB: Insurance:CARESOURCE HAYNESDOB: [facility] MEDICAIDPolicy [id number] Repository [place] Number: LYDIA STR[place] [id number] [place], [place] [address]Hqo: (331) Date:2017-10-1342847Atv: () [id number] [phone] Name:[address] ()Tel: ([phone]) 1959[place], [place] [address] (WP) [address]YY: 10/13/2017 NEGRITO L Primary NEGRITO L [place] [id number] [place] Insurance:CARESOURCEP HAYNESDOB: [facility] Number: [id number] Hospital 92228Yqs: ([phone]) [id number] Repository [phone] () Date:2017-10-13[address]ATTN: [place] [address]WA: 10/13/2017 Secondary NOT GIVENUNK [place] Insurance:SELF PAY [facility] Number: Effective Repository Date:2017-10-13 10/07/2017 NEGRITO L Primary NEGRITO L [facility] HAYNESDOB: Insurance:CARESOURCE HAYNESDOB: [facility] MEDICAIDPolicy [id number] Repository [place] Number: [place], [place] [id number] [place], [place] [address]Rfy: (245) Date:2017-10-07 [id number]: () [id number] Name:XPO Box ()Tel: [phone]) 77[place], [place] [address] ([place]) [address]RO: 10/06/2017 NEGRITO L Primary NEGRITO L [place] [id number] FREEMAN Insurance:CARESOURCEP HAYNESDOB: [facility] Number: [id number] [address]Ydh: [phone]) [id number] Repository [phone] () Date:2017-10-06[address]ATTN: [place] [address]UZ: 10/06/2017 Secondary NOT GIVENUNK [place] Insurance:SELF PAY [facility] Number: Effective Repository Date:2017-10-06 10/06/2017 NEGRITO L Primary NEGRITO L Noy [id number] [place]RE[place] Insurance:CARESOURCEP [facility] Number: [id number] [facility] [id number]: [phone] [id number] Repository [phone] () Date:2017-10-06[address]ATTN: [place] [address]MI: 10/06/2017 Secondary NOT GIVENUNK [place] Insurance:SELF PAY [facility] Number: Effective Repository Date:2017-10-06 10/05/2017 NEGRITO Primary NEGRITO [facility] [id number] [place] Insurance:[facility] Number: Repository [id number]: [id number] 37 () Date:2016-12-12[address] [place] [address]RP: 09/28/2017 NEGRITO L Primary NEGRITO L Noy [id number] [place] Insurance:CARESOURCEP HAYNESDOB: [facility] Number: [id number] Hospital [address]Swy: [phone] [id number] Repository [phone] () Date:2017-09-28 [address]ATTN: [place] [address]EU: 09/28/2017 Secondary NOT GIVENUNK [place] Insurance:SELF PAY [facility] Number: Effective Repository Date:2017-09-28 09/26/2017 NEGRITO L Primary NEGRITO L Noy [id number] [place] Insurance:CARESOURCEP ROSEVILLEDOB: [facility] Number: [id number] Hospital [address]Svo: [phone] [id number] Repository [phone] () Date:2017-09-26 [address]ATTN: [place] [address]XR: 09/26/2017 Secondary NOT GIVENUNK [place] Insurance:SELF PAY [facility] Number: Effective Repository Date:2017-09-26 09/19/2017 NEGRITO L Primary NEGRITO L Noyeduin [id number] [place] Insurance:CARESOURCEP HAYRAFAELDOB: [facility] Number: [id number] Hospital [address]Xcq: [phone] [id number] Repository [phone] () Date:2017-09-19[address]ATTN: [place] [address]NX: 09/19/2017 Secondary NOT GIVENUNK Noy Insurance:SELF PAY [facility] Number: Effective Repository Date:2017-09-19 09/12/2017 NEGRITO L Primary NEGRITO L Noy [id number] [place] Insurance:CARESOURCEP ROBBYDOB: [facility] Number: [id number] Hospital [address]Vvc: [phone] [id number] Repository [phone] () Date:2017-09-12[address]ATTN: [place] [address]RU: 09/12/2017 Secondary NOT GIVENUNK Noy Insurance:SELF PAY [facility] Number: Effective Repository Date:2017-09-12
== END 2018-08-31 22:53 | disposition home or self-care (01) ==
PROVIDERS: Emergency Provider Emergency Medicine; Family Provider Family Medicine Geriatric Medicine; PCP Family Medicine Geriatric Medicine
DX: N93.9 Abnormal uterine and vaginal bleeding, unspecified (principal); D64.9 Anemia, unspecified; F41.9 Anxiety disorder, unspecified; F32.9 Major depressive disorder, single episode, unspecified; Z72.0 Tobacco use; Z79.899 Other long term (current) drug therapy
CPT/HCPCS: 84703; 85027; 99283; A4216

== ENCOUNTER → 2018-09-13 17:27 | Outpatient (CLI) | payer MEDICAID, SELFPAY ==
[2018-08-31 20:48] VITALS: BMI 48.0
--- NOTE | 2018-09-13 17:30 | RAD_ITS ---
STUDY: X-RAY - THORACIC SPINE REASON FOR EXAM: Female, 33 years old. Back pain TECHNIQUE: 4 view(s) of the thoracic spine were obtained. COMPARISON: None. FINDINGS: Normal kyphosis of the thoracic spine. There is no substantial scoliosis. Normal thoracic vertebrae and endplates. Normal disc space heights. The soft tissue structures are unremarkable. RAD/Thoracic Spine 2 Views IMPRESSION: Normal x-ray examination of the thoracic spine. Electronically Signed: Gordon Min MD at 4:06 EST , Service support ,
--- NOTE | 2018-09-13 17:35 | RAD_ITS ---
STUDY: X-RAY - LUMBAR SPINE REASON FOR EXAM: Female, 33 years old. Trauma TECHNIQUE: 3 view(s) of the lumbar spine were obtained. COMPARISON: None FINDINGS: Normal lumbar lordosis. There is no substantial scoliosis. There is a normal alignment of the vertebrae. Normal vertebral bodies and endplates. Normal disc space heights. The soft tissue structures are unremarkable. RAD/Lumbar Spine 2 or 3 Views IMPRESSION: Normal x-ray examination of the lumbar spine. Electronically Signed: Gordon Min MD at 4:17 EST , Service support ,
== END ==
PROVIDERS: Family Provider Family Medicine Geriatric Medicine; PCP Family Medicine Geriatric Medicine; Referring Provider Family Medicine Geriatric Medicine; Visit Provider Family Medicine Geriatric Medicine
DX: M54.5 Low back pain (principal)
CPT/HCPCS: 72070; 72100

== ENCOUNTER 2018-09-14 17:34 | Emergency (ER) | payer MEDICAID, SELFPAY ==
[2018-09-14 17:35] VITALS: BP 140/86; PULSE 121; RESP 16; TEMP 36.7; O2SAT 97; BMI 48.4
--- NOTE | 2018-09-14 17:57 | CT_ITS ---
STUDY: CT BRAIN WITHOUT CONTRAST REASON FOR EXAM: Female, 33 years old. Headache status post fall RADIATION DOSAGE (If Supplied By Facility): CTDIvol = ( 44.99 ) mGy, DLP = ( 829.85 ) mGycm TECHNIQUE: Transaxial CT imaging of the brain was performed without administration of intravenous contrast material. Individualized dose optimization techniques were used for this CT. COMPARISON: August 05, 2018 FINDINGS: Normal soft tissue structures. Normal calvarium. Normal size ventricles and extra-axial spaces for the patient's age. Normal white matter tracts of the cerebral hemispheres. Normal basal ganglia and thalami. Normal brainstem. Normal cerebellum. There is no intracranial hemorrhage. There are no findings of an acute ischemic infarction. Normal visualized paranasal sinuses. CT/Brain/Head without Contrast IMPRESSION: Normal unenhanced CT scan of the brain. Electronically Signed: Francisco Javier Hagan MD at 20:14 EST , Service support ,
--- NOTE | 2018-09-14 17:57 | CT_ITS ---
STUDY: CT LUMBAR SPINE WITHOUT CONTRAST REASON FOR EXAM: Female, 33 years old. Fall on wet floor. Back pain. RADIATION DOSAGE (If Supplied By Facility): CTDIvol = ( 66.62 ) mGy, DLP = ( 2418.13 ) mGycm TECHNIQUE: The patient was scanned in a multi detector CT scanner. High resolution transaxial imaging was performed. Images were obtained from T12 to the sacrum. Sagittal and coronal images were reconstructed. Individualized dose optimization techniques were used for this CT. COMPARISON: Lumbar spine, September 13, 2018. FINDINGS: Normal lumbar lordosis. There is no substantial scoliosis. Normal alignment of the lumbar vertebral bodies. Normal vertebrae of the lumbar spine. There is no evidence of acute fracture or loss of vertebral axial height. L1-2: Normal endplates. Normal disc height and morphology. Normal bilateral facet joints. Normal central canal and bilateral lateral recesses. Normal bilateral intervertebral neural foramina. L2-3: Normal endplates. Normal disc height and morphology. Normal bilateral facet joints. Normal central canal and bilateral lateral recesses. Normal bilateral intervertebral neural foramina. L3-4: Normal endplates. Normal disc height and morphology. Normal bilateral facet joints. Normal central canal and bilateral lateral recesses. Normal bilateral intervertebral neural foramina. L4-5: Normal endplates. Normal disc height and morphology. Normal bilateral facet joints. Normal central canal and bilateral lateral recesses. Normal bilateral intervertebral neural foramina. L5-S1: Normal endplates. Normal disc height and morphology. Normal bilateral facet joints. Normal central canal and bilateral lateral recesses. Normal bilateral intervertebral neural foramina. Normal visualized paraspinous soft tissue structures. CT/Spine Lumbar without Contrast IMPRESSION: Normal unenhanced CT examination of the lumbar spine. Electronically Signed: Trever Gerardo DO at 19:39 EST Tel [phone], Service support ,
--- NOTE | 2018-09-14 17:57 | CT_ITS ---
STUDY: CT THORACIC SPINE WITHOUT CONTRAST REASON FOR EXAM: Female, 33 years old. Back pain after falling. RADIATION DOSAGE (If Supplied By Facility): CTDIvol = ( 65.50 ) mGy, DLP = ( 2344.96 ) mGycm TECHNIQUE: The patient was scanned in a multi detector CT scanner. High resolution imaging was performed. Images were obtained from T1 to T12. Sagittal and coronal images were reconstructed. Individualized dose optimization techniques were used for this CT. COMPARISON: None. FINDINGS: Normal visualized cervical spine. Normal kyphosis of the thoracic spine. There is no substantial scoliosis. Normal thoracic vertebrae and endplates. Mild degenerative disc changes at T3-4, T9-10 and T12-L1. Minimal degenerative disc changes at other levels. Negative for fracture of the thoracic spine. The soft tissue structures are unremarkable. CT/Spine Thoracic without Contras IMPRESSION: Normal alignment of the thoracic spine without fracture or deformity. Mild degenerative disc changes in the pattern as described above. Electronically Signed: Cyndi Holm MD at 19:49 EST , Service support ,
--- NOTE | 2018-09-14 17:57 | CT_ITS ---
STUDY: CT CERVICAL SPINE WITHOUT CONTRAST REASON FOR EXAM: Female, 33 years old. Trauma RADIATION DOSAGE (If Supplied By Facility): CTDIvol = ( 33.35 ) mGy, DLP = ( 722.45 ) mGycm TECHNIQUE: High resolution transaxial imaging was performed without contrast material. Sagittal and coronal images were reconstructed. Individualized dose optimization techniques were used for this CT. COMPARISON: None FINDINGS: Normal craniovertebral junction. Normal anterior atlantoaxial articulation. Normal odontoid process. Decreased cervical lordosis. Normal vertebral bodies and posterior osseous elements. C2-3: Normal endplates. Normal disc height and morphology. Normal central canal and intervertebral neuroforamina. C3-4: Normal endplates. Normal disc height and morphology. Normal central canal and intervertebral neuroforamina. C4-5: Normal endplates. Normal disc height and morphology. Normal central canal and intervertebral neuroforamina. C5-6: Normal endplates. Normal disc height and morphology. Normal central canal and intervertebral neuroforamina. C6-7: Normal endplates. Normal disc height and morphology. Normal central canal and intervertebral neuroforamina. C7-T1: Normal endplates. Normal disc height and morphology. Normal central canal and intervertebral neuroforamina. Normal visualized soft tissue structures. CT/Spine Cervical without Contras IMPRESSION: Decreased cervical lordosis otherwise normal unenhanced CT examination of the cervical spine. Electronically Signed: Kory Wiggins MD at 19:37 EST , Service support ,
--- NOTE | 2018-09-14 18:01 | ED.DCSUM_ITS ---
- ER Visit Summary Date of Service: 09/14/18 Chief Complaint: Fall History of Present Illness: The patient is a 33 F comes by private vehicle with sister mechanical fall at [facility] ([facility] at 3:45 PM. States was in the bathroom slipped on water landed directly on her back and hitting her head. Reports loss consciousness for 2 minutes. Pain in upper lower back neck and head. Nausea without vomiting. No anticoagulation medicines. Reports history of L4-L5 hernia followed by Dr. Nieves she is on gabapentin. Reports having a fall 5 days ago without head injury saw her PCP with x-rays performed as an outpatient. No loss of bowel or bladder control. No further complaints. Physical Examination: General: Alert and oriented ?3, moderate distress HEENT: Normocephalic, atraumatic. Moist mucosa membranes Neck: supple, midline tenderness mid cervical without step-offs. Cardiovascular: Regular rate and rhythm, no murmurs Respiratory: Normal breath sounds, symmetric, no distress Back: Midline lower thoracic tenderness without step-offs. Midline mid lumbar tenderness without step-offs. Straight leg test negative. Abdomen: Soft, nontender, nondistended Extremities: Nontender, no edema, pulses intact ?4. upper extremity strength and movement intact. Neuro: no focal neurological deficits. Cranial nerves II through XII intact. Test Results: CT head, neck, thoracic, lumbar spine with no acute process. Labs stable. Emergency Department Course and Treatment: Patient being in moderate distress with palpation there is no step-offs, she has BMI of 48. With her tenderness on evaluation CT trauma scans were obtained of the spine and head all were negative. She was treated with fentanyl in the ED x2. She was reassured after results. She has tolerated Percocet in the past. I did discussed concussion with her head injury and precautions. Oars report checked shows no recent opiates. Short prescription for symptom control. Follow-up with her PCP. Treatment Plan: [] Disposition: Discharge Impression: 1. Concussion with loss of consciousness 2. Cervical, thoracic and lumbar spine contusion This note was generated with [employer] dictation software. It may contain incorrect words, spelling, and punctuation that were not noted in review of the chart prior to signing ED Disposition - Plan for ED Patient: Disposition: Home or Assisted Living Diagnosis: Concussion with loss of consciousness <= 30 min, Back contusion, Neck contusion Instructions: ED Concussion, ED Neck Back Pain General Prescriptions: Oxycodone HCl/Acetaminophen [Percocet 5/325] 1 tablet PO Q6H PRN PRN 3 Days #12 tablet PRN Reason: Pain Referrals: Jose Nieves Chi, MD [Primary Care Provider] - 3-5 Days Additional Instructions: CT head negative. CT cervical, thoracic, lumbar spine negative.
[2018-09-14 18:22] VITALS: PULSE 106; RESP 16; O2SAT 96
[2018-09-14] MEDS: fentaNYL 100 MCG/2 ML Ampul 50 MCG IV ×2 (18:23→19:23)
[2018-09-14 18:35] LABS: Absolute Lymphocyte Count 1.48 X10^3/ul (0.83-4.51); Absolute Neutrophil Count 21.3 X10^3/uL (2.0-7.7); Basophil# 0.01 X10^3/uL; Hematocrit 34.5 % (37-47); Hemoglobin 10.3 g/dl (12.0-15.0); Lymphocyte # 1.48 X10^3/ul (4.0); Lymphocyte % 6.3 % (19-41); Mean Corp Hgb Conc 29.9 g/gl (32-36); Mean Corpuscular Volume 70.4 fL (81-99); Mean Platelet Vol. 9.8 fl (6.2-12.0); Monocyte# 0.71 X10^3/uL; Neutrophil # 21.29 X10^3/uL (2.7-7.7); Neutrophil % 90.3 % (47-70); Platelet Count 423 K/mm3 (150-450); RBC Distribution Width CV 20.8 % (11.6-14.6); RBC Distribution Width SD 52.5 fl (35.1-43.9); White Blood Count 23.6 K/mm3 (4.4-11.0)
[2018-09-14 18:36] LABS: POSITIVE COUNT NO; POSITIVE DIFFERENTIAL YES
[2018-09-14 18:37] LABS: Differential Indicated SCAN CRITERIA MET; POSITIVE MORPHOLOGY YES
[2018-09-14 18:42] LABS: Prothrombin Time (Protime)PT. 13.2 SECONDS (11.7-14.9)
[2018-09-14 18:43] LABS: Partial Thromboplast Time 30.1 Seconds (24.1-36.2)
[2018-09-14 18:55] LABS: Anion Gap 9 (5-15); BUN 8 mg/dL (7-18); BUN/Creat Ratio 11.5 RATIO (10-20); Calcium,Total 9.2 mg/dL (8.5-10.1); Chloride 108 mmol/L (98-107); EST Glomerular Filtration Rate 104 mL/min (>60); Est Glom Filt Rate - Afr Amer 126 mL/min (>60); Estimated Creatinine Clearance 125.92 ml/min; Glucose 157 mg/dL (74-106); Potassium 3.7 mmol/L (3.5-5.1); Sodium Level 142 mmol/L (136-145)
[2018-09-14 20:23] VITALS: BP 127/77; PULSE 100; RESP 18; O2SAT 96
[2018-09-14 21:20] VITALS: PULSE 94; RESP 22; O2SAT 98
--- NOTE | 2018-09-14 21:20 | ED.RN ---
THIS NURSE REVIEWED D/C INSTRUCTIONS WITH PT. PT VERBALIZED UNDERSTANDING OF INSTRUCTIONS. IV D/C. IV CATHETER INTACT. PT TOLERATED WELL. PT DENIES FURTHER NEEDS OR QUESTIONS AT THIS TIME. PT AMBULATES FROM ROOM ON OWN WITHOUT ASSISTANCE FROM STAFF
== END 2018-09-14 21:25 | disposition home or self-care (01) ==
PROVIDERS: Emergency Provider Emergency Medicine; Family Provider Family Medicine Geriatric Medicine; PCP Family Medicine Geriatric Medicine
DX: S06.0X1A Concussion with loss of consciousness of 30 minutes or less, initial encounter (principal); S20.229A Contusion of unspecified back wall of thorax, initial encounter; S30.0XXA Contusion of lower back and pelvis, initial encounter; S10.93XA Contusion of unspecified part of neck, initial encounter; E66.9 Obesity, unspecified; Z68.42 Body mass index [BMI] 45.0-49.9, adult; Z72.0 Tobacco use; W01.0XXA Fall on same level from slipping, tripping and stumbling without subsequent striking against object, initial encounter; Y93.89 Activity, other specified; Y92.511 Restaurant or cafe as the place of occurrence of the external cause; Y99.8 Other external cause status
CPT/HCPCS: 70450; 72125; 72128; 72131; 80048; 85025; 85610; 85730; 96374; 96376; 99283; A4216

== ENCOUNTER → 2018-09-20 16:15 | Outpatient (CLI) | payer MEDICAID, SELFPAY ==
[2018-09-14 17:35] VITALS: BMI 48.4
== END ==
PROVIDERS: Family Provider Family Medicine Geriatric Medicine; PCP Family Medicine Geriatric Medicine; Referring Provider Family Medicine Geriatric Medicine; Visit Provider Family Medicine Geriatric Medicine
DX: R68.83 Chills (without fever) (principal)
CPT/HCPCS: 87633

== ENCOUNTER → 2018-10-08 11:56 | Outpatient (CLI) | payer MEDICAID, SELFPAY ==
[2018-09-14 17:35] VITALS: BMI 48.4
[2018-10-08 13:04] LABS: Pregnancy, Serum, hCG Quali. NEGATIVE Negative (0-9 Nonpreg)
== END ==
PROVIDERS: Family Provider Family Medicine Geriatric Medicine; PCP Family Medicine Geriatric Medicine; Visit Provider Family Medicine Geriatric Medicine
DX: N93.8 Other specified abnormal uterine and vaginal bleeding (principal)
CPT/HCPCS: 36415; 84703

== ENCOUNTER 2018-10-21 13:36 | Emergency (ER) | payer MEDICAID, SELFPAY ==
[2018-10-21 13:37] VITALS: BP 151/89; PULSE 96; RESP 18; TEMP 36.6; O2SAT 98; BMI 49.6
--- NOTE | 2018-10-21 14:31 | US_ITS ---
STUDY: ULTRASOUND OF THE FEMALE PELVIS - COMPLETE REASON FOR EXAM: Female, 33 years old. Right-sided abdominal pain for 3 days LMP: 10/16/2018 TECHNIQUE: Transabdominal imaging is performed with subsequent endovaginal imaging needed due to incomplete distention of the urinary bladder/poor posterior window. TECHNICAL QUALITY: Adequate. COMPARISON: None. FINDINGS: The uterus is anteverted and is in a midline position. The uterus measures 9.4 x 3.8 x 4.6 cm. Normal uterine cervix. The endometrium measures 6 mm in thickness, and is hyperechoic. There is no demonstrated endometrial mass. There is no demonstrated myometrial mass. I.U.D. - The patient does not have an I.U.D. The right ovary is visualized. The right ovary measures 5.2 x 5.9 x 4.6 cm. Right ovary is only visualized on transabdominal imaging. There is a nearly anechoic cyst measuring up to 4.2 cm. There is no visualized right adnexal mass or complex lesion. There is normal arterial and normal venous vascularity. The left ovary is visualized. The left ovary measures cm. There is no left ovarian cyst or ovarian mass. There is no visualized left adnexal mass or complex lesion. There is normal arterial and normal venous vascularity. There is no fluid in the cul-de-sac. 2.4 x 2.8 x 3.0 urinary bladder is not well-distended. US/Transvaginal Non- IMPRESSION: 1. 4.2 cm right ovarian simple-appearing cyst without evidence of torsion. 2. No pelvic free fluid. Electronically Signed: Vu Regan MD at 16:48 EDT , Service support ,
[2018-10-21 14:45] LABS: Color, Urine Yellow (Yellow); Glucose, Dipstick Normal (Normal); Ketone-Dipstick Negative (Negative); Leukocyte Esterase-Dipstick Negative /ul (Negative); Nitrite-Dipstick Negative (Negative); Occult Blood-Urine 150 /ul (Negative); Protein-Dipstick Negative (Negative); Urine Bilirubin Dipstick Negative (Negative); Urine Clarity Clear (Clear); Urine Urobilinogen Normal (Normal)
[2018-10-21 14:46] LABS: Absolute Lymphocyte Count 2.25 X10^3/ul (0.83-4.51); Absolute Neutrophil Count 12.3 X10^3/uL (2.0-7.7); Basophil# 0.03 X10^3/uL; Basophil% 0.2 % (0-1); Eosinophil# 0.17 X10^3/uL; Eosinophils% 1.1 % (0-5); Hematocrit 35.1 % (37-47); Hemoglobin 10.3 g/dl (12.0-15.0); Lymphocyte # 2.25 X10^3/ul (4.0); Lymphocyte % 14.5 % (19-41); Mean Corp Hgb Conc 29.3 g/gl (32-36); Mean Corpuscular Hgb 21.2 pg (27.0-32.0); Mean Corpuscular Volume 72.4 fL (81-99); Mean Platelet Vol. 9.7 fl (6.2-12.0); Monocyte% 4.5 % (0-10); Neutrophil % 79.4 % (47-70); Platelet Count 438 K/mm3 (150-450); RBC Distribution Width CV 20.9 % (11.6-14.6); RBC Distribution Width SD 54.2 fl (35.1-43.9); Red Blood Count 4.85 M/mm3 (4.2-5.4); White Blood Count 15.5 K/mm3 (4.4-11.0)
[2018-10-21 14:47] LABS: POSITIVE COUNT NO; POSITIVE DIFFERENTIAL NO; POSITIVE MORPHOLOGY YES
[2018-10-21 14:48] LABS: Differential Indicated SCAN CRITERIA MET
[2018-10-21 14:58] LABS: ALB/GLOB Ratio 0.8 RATIO (0.9-2.4); AST(SGOT) 11 U/L (15-37); Alanine Aminotransfer ALT/SGPT 21 U/L (13-56); Albumin, Serum 3.5 g/dL (3.2-5.0); Alkaline Phosphatase 122 U/L (45-117); Anion Gap 5 (5-15); BUN 7 mg/dL (7-18); BUN/Creat Ratio 11.6 RATIO (10-20); Calcium,Total 8.7 mg/dL (8.5-10.1); Chloride 106 mmol/L (98-107); EST Glomerular Filtration Rate 123 mL/min (>60); Est Glom Filt Rate - Afr Amer 149 mL/min (>60); Estimated Creatinine Clearance 146.91 ml/min; Globulin 4.4 g/dL (2.2-4.2); Glucose 79 mg/dL (74-106); Potassium 3.4 mmol/L (3.5-5.1); Protein, Total 7.9 g/dL (6.4-8.2); Sodium Level 138 mmol/L (136-145)
[2018-10-21 15:09] LABS: Platelet Estimate ADEQUATE (ADEQ)
[2018-10-21 15:10] LABS: Anisocytosis 2+; Hypochromasia 1+; Microcytosis 2+
[2018-10-21] MEDS: oxyCODONE 5 MG Tablet PO (15:11)
[2018-10-21 15:56] LABS: hCG Titer Quant., Serum < 1 mIU/mL (<9 non-preg)
--- NOTE | 2018-10-21 15:59 | ED.VISSUMM ---
- ER Visit Summary Date of Service: 10/21/18 Chief Complaint: Pelvic pain History of Present Illness: The patient is a 33 F with pelvic pain past 3 days. This is gradual in onset described as achy moderate. She took a few test at home most of them were negative but she thought 1 or 2 of them may have been positive. She started having some slight vaginal bleeding today. This would be about her normal menstrual cycle. She has no back pain flank pain or urinary symptoms. He has no fever or chills. Physical Examination: Patient does not appear in significant distress. She is morbidly obese. Moist mucous membranes, no obvious facial deformity No C-spine tenderness supple neck. Regular rate and rhythm without any obvious murmurs Clear lungs bilaterally speaking in full sentences without any obvious respiratory distress Abdomen soft with tenderness in the suprapubic region. No guarding or rebound Moves all extremities without any difficulty or pain. Skin does not show any obvious rashes or lesions, no trauma. Alert oriented ?3 with no gross focal deficit Emergency Department Course and Treatment: Patient has slight leukocytosis. Urinalysis is negative. Ultrasound shows a left ovarian cyst, there is also a small right ovarian cyst. Official read is pending. Pending this result she will be discharged. She has no history of vaginal discharge dyspareunia or dysuria her urinalysis is negative there is no evidence of infection leukocytosis is explained and that the patient has pain, it is likely reactionary. She appears well I reevaluated her I will discharge her with analgesia she is to follow-up with her [employer], Dr. Tatum. Disposition: Discharge stable condition Impression: Ovarian cyst This note was generated with [employer] dictation software. It may contain incorrect words, spelling, and punctuation that were not noted in review of the chart prior to signing ED Disposition - Plan for ED Patient: Disposition: Home or Assisted Living Instructions: What Are Ovarian Cysts? Prescriptions: Hydrocodone Bitart/Apap 5-325 [[place] 5MG-325MG] 1 tab PO Q4H PRN PRN 2 Days #10 tab PRN Reason: Pain Referrals: Macie Tatum MD [STAFF PHYSICIAN] - 3-5 Days
[2018-10-21 17:29] VITALS: RESP 18
== END 2018-10-21 17:34 | disposition home or self-care (01) ==
PROVIDERS: Emergency Provider Emergency Medicine; Family Provider Family Medicine Geriatric Medicine; PCP Family Medicine Geriatric Medicine
DX: N83.292 Other ovarian cyst, left side (principal); N83.291 Other ovarian cyst, right side; R10.30 Lower abdominal pain, unspecified; Z72.0 Tobacco use; Z79.899 Other long term (current) drug therapy
CPT/HCPCS: 76830; 80053; 81002; 84702; 85025; 93976; 99284

== ENCOUNTER → 2018-10-23 14:51 | Outpatient (CLI) | payer MEDICAID, SELFPAY ==
[2018-10-21 13:37] VITALS: BMI 49.6
[2018-10-23 17:05] LABS: Absolute Lymphocyte Count 3.08 X10^3/ul (0.83-4.51); Absolute Neutrophil Count 10.5 X10^3/uL (2.0-7.7); Basophil# 0.03 X10^3/uL; Basophil% 0.2 % (0-1); Eosinophil# 0.26 X10^3/uL; Eosinophils% 1.8 % (0-5); Hemoglobin 10.1 g/dl (12.0-15.0); Lymphocyte # 3.08 X10^3/ul (4.0); Mean Corp Hgb Conc 29.7 g/gl (32-36); Mean Corpuscular Hgb 21.4 pg (27.0-32.0); Mean Corpuscular Volume 71.9 fL (81-99); Monocyte# 0.79 X10^3/uL; Monocyte% 5.4 % (0-10); Neutrophil # 10.49 X10^3/uL (2.7-7.7); Neutrophil % 71.3 % (47-70); Platelet Count 456 K/mm3 (150-450); RBC Distribution Width CV 20.9 % (11.6-14.6); Red Blood Count 4.73 M/mm3 (4.2-5.4); White Blood Count 14.7 K/mm3 (4.4-11.0)
[2018-10-23 17:06] LABS: Differential Indicated SCAN CRITERIA MET; POSITIVE COUNT NO; POSITIVE DIFFERENTIAL NO; POSITIVE MORPHOLOGY YES
[2018-10-23 17:25] LABS: Anisocytosis 2+; Differential Comment SCANNED; Hypochromasia 1+; Ovalocyte RARE
[2018-10-23 17:28] LABS: ALB/GLOB Ratio 0.8 RATIO (0.9-2.4); AST(SGOT) 15 U/L (15-37); Alanine Aminotransfer ALT/SGPT 25 U/L (13-56); Albumin, Serum 3.4 g/dL (3.2-5.0); Alkaline Phosphatase 126 U/L (45-117); Anion Gap 11 (5-15); BUN 11 mg/dL (7-18); BUN/Creat Ratio 17.9 RATIO (10-20); Calcium,Total 8.8 mg/dL (8.5-10.1); Chloride 104 mmol/L (98-107); Creatinine, Serum 0.62 mg/dL (0.55-1.02); EST Glomerular Filtration Rate 120 mL/min (>60); Est Glom Filt Rate - Afr Amer 145 mL/min (>60); Globulin 4.2 g/dL (2.2-4.2); Glucose 92 mg/dL (74-106); Potassium 4.3 mmol/L (3.5-5.1); Protein, Total 7.6 g/dL (6.4-8.2); Sodium Level 140 mmol/L (136-145); Thyroid Stim Hormone (TSH) 9.41 uIU/mL (0.358-3.74)
== END ==
PROVIDERS: Family Provider Family Medicine Geriatric Medicine; PCP Family Medicine Geriatric Medicine; Visit Provider Family Medicine Geriatric Medicine
DX: R53.83 Other fatigue (principal)
CPT/HCPCS: 36415; 80053; 84443; 85025

== ENCOUNTER 2018-11-05 17:19 | Emergency (ER) | payer MEDICAID, SELFPAY ==
[2018-10-29 14:08] VITALS: BMI 49.6
--- NOTE | 2018-11-05 17:15 | RAD_ITS ---
STUDY: X-RAY CHEST REASON FOR EXAM: Female, 33 years old. Cough, flu, pneumonia. TECHNIQUE: PA and lateral chest. COMPARISON: 04/10/2018. FINDINGS: The lungs are clear and expanded. There is no demonstrated pleural abnormality. Normal size heart. Normal mediastinum and jag. Normal visualized pulmonary arteries. Normal visualized aortic arch and descending thoracic aorta. Normal visualized thoracic spine. Normal visualized ribs, clavicles, and shoulders. There is no demonstrated abnormality of the visualized soft tissue structures of the upper abdomen. RAD/Chest PA and Lateral IMPRESSION: Normal x-ray examination of the chest. Electronically Signed: Kimberly Mcgrath MD at 18:59 EDT Tel , Service support ,
[2018-11-05 17:20] VITALS: BP 121/84; PULSE 102; RESP 18; TEMP 36.8; O2SAT 98; BMI 49.5
[2018-11-05 18:31] VITALS: BP 126/98; PULSE 96; RESP 18; TEMP 37.2; O2SAT 97
--- NOTE | 2018-11-05 18:57 | ED.VISSUMM ---
- ER Visit Summary Date of Service: 11/05/18 Chief Complaint: Cough and congestion History of Present Illness: The patient is a 33 F reports cough for the past 1 week with green sputum production. She describes having fever the first 2 days of her illness. She complains of body aches. She had Cheratussin cough syrup which helped her initially but she is been out for the past several days. She did get the flu shot. Her friend states she has had influenza for times in spite of having the flu shot. Physical Examination: Vital signs unremarkable. Head and neck examination reveals right TM to be erythematous. Left TM is clear. Posterior pharynx examination is normal. She has mild bilateral anterior cervical lymphadenopathy. Heart is regular rate and rhythm. Lung sounds are clear. Abdomen is soft and nontender. Test Results: Chest x-ray shows no focal infiltrate. Emergency Department Course and Treatment: Patient be treated with a course of Zithromax for her ear infection. This will also cover respiratory etiology. She will be given a prescription for Cheratussin. Treatment Plan: [] Disposition: Discharge Impression: 1. Right otitis media 2. Cough This note was generated with [employer] dictation software. It may contain incorrect words, spelling, and punctuation that were not noted in review of the chart prior to signing ED Disposition - Plan for ED Patient: Referrals: Jose Nieves Chi, MD [Primary Care Provider] -
--- NOTE | 2018-11-05 18:58 | ED.DEP ---
ED Disposition - Plan for ED Patient: Disposition: Home or Assisted Living Instructions: ED Otitis Media Acute Adult Prescriptions: Azithromycin [Zithromax] 250 mg PO DAILY #4 tablet Codeine Phosphate/Guaifenesin [Cheratussin AC Syrup] 10 ml PO 4X/DAY PRN PRN #120 liquid PRN Reason: Cough/Congestion Referrals: Jose Nieves Chi, MD [Primary Care Provider] - 1 Week
[2018-11-05] MEDS: Azithromycin 250 MG Tablet 500 MG PO (19:11)
== END 2018-11-05 19:13 | disposition home or self-care (01) ==
PROVIDERS: Emergency Provider Emergency Medicine; Family Provider Family Medicine Geriatric Medicine; PCP Family Medicine Geriatric Medicine
DX: H66.91 Otitis media, unspecified, right ear (principal); R05 Cough; Z79.899 Other long term (current) drug therapy; J45.909 Unspecified asthma, uncomplicated; G43.909 Migraine, unspecified, not intractable, without status migrainosus; F41.9 Anxiety disorder, unspecified; F31.9 Bipolar disorder, unspecified; Z72.0 Tobacco use
CPT/HCPCS: 71046; 99282

== ENCOUNTER → 2018-11-08 17:10 | Outpatient (CLI) | payer MEDICAID, SELFPAY ==
[2018-11-05 17:20] VITALS: BMI 49.5
== END ==
PROVIDERS: Family Provider Family Medicine Geriatric Medicine; PCP Family Medicine Geriatric Medicine; Referring Provider Family Medicine Geriatric Medicine; Visit Provider Family Medicine Geriatric Medicine
DX: R50.9 Fever, unspecified (principal)
CPT/HCPCS: 87633

== ENCOUNTER → 2018-11-26 | Outpatient (CLI) | payer MEDICAID, SELFPAY ==
[2018-10-29 14:08] VITALS: BMI 49.6
[2018-11-05 17:20] VITALS: BMI 49.5
--- NOTE | 2018-11-26 13:16 | US_ITS ---
STUDY: ULTRASOUND OF THE FEMALE PELVIS - COMPLETE REASON FOR EXAM: Female, 33 years old. Ovarian cyst. LMP: 09/25/2018 TECHNIQUE: Transabdominal and Transvaginal TECHNICAL QUALITY: Limited. Examination limited due to obesity. COMPARISON: 10/21/2018. FINDINGS: The uterus is anteverted and is in a midline position. The uterus measures 9.3 x 4.2 x 4.0 cm. Normal uterine cervix. The endometrium measures 3 mm in thickness, and is hyperechoic. There is no demonstrated endometrial mass. There is no demonstrated myometrial mass. I.U.D. - The patient does not have an I.U.D. The right ovary is visualized. The right ovary measures 4.0 x 3.0 x 3.1 cm. There is no right ovarian cyst or ovarian mass. There is no visualized right adnexal mass or complex lesion. There is normal arterial and normal venous vascularity. The left ovary is visualized. The left ovary measures 2.8 x 1.2 x 1.9 cm. There is no left ovarian cyst or ovarian mass. There is no visualized left adnexal mass or complex lesion. There is normal arterial and normal venous vascularity. There is no fluid in the cul-de-sac. US/Pelvic (Non ) IMPRESSION: Normal female pelvis. No ovarian cyst seen. Electronically Signed: Alejandro Parra MD at 20:01 EDT , Service support ,
--- NOTE | 2018-11-26 13:16 | US_ITS ---
STUDY: ULTRASOUND OF THE FEMALE PELVIS - COMPLETE REASON FOR EXAM: Female, 33 years old. Ovarian cyst. LMP: 09/25/2018 TECHNIQUE: Transabdominal and Transvaginal TECHNICAL QUALITY: Limited. Examination limited due to obesity. COMPARISON: 10/21/2018. FINDINGS: The uterus is anteverted and is in a midline position. The uterus measures 9.3 x 4.2 x 4.0 cm. Normal uterine cervix. The endometrium measures 3 mm in thickness, and is hyperechoic. There is no demonstrated endometrial mass. There is no demonstrated myometrial mass. I.U.D. - The patient does not have an I.U.D. The right ovary is visualized. The right ovary measures 4.0 x 3.0 x 3.1 cm. There is no right ovarian cyst or ovarian mass. There is no visualized right adnexal mass or complex lesion. There is normal arterial and normal venous vascularity. The left ovary is visualized. The left ovary measures 2.8 x 1.2 x 1.9 cm. There is no left ovarian cyst or ovarian mass. There is no visualized left adnexal mass or complex lesion. There is normal arterial and normal venous vascularity. There is no fluid in the cul-de-sac. US/Transvaginal Non- IMPRESSION: Normal female pelvis. No ovarian cyst seen. Electronically Signed: Alejandro Parra MD at 20:01 EDT , Service support ,
== END | disposition home or self-care (01) ==
PROVIDERS: Family Provider Family Medicine Geriatric Medicine; PCP Family Medicine Geriatric Medicine; Referring Provider Nurse Practitioner Women's Health; Visit Provider Nurse Practitioner Women's Health
DX: N83.201 Unspecified ovarian cyst, right side (principal)
CPT/HCPCS: 76830; 76856; 93976

== ENCOUNTER 2018-12-18 18:33 | Emergency (ER) | payer MEDICAID, SELFPAY ==
[2018-12-18 18:34] VITALS: BP 126/80; PULSE 101; RESP 16; TEMP 35.7; BMI 49.9
--- NOTE | 2018-12-18 18:59 | ED.DEP ---
ED Disposition - Plan for ED Patient: Instructions: ED Urticaria Prescriptions: Prednisone [Deltasone] 40 mg PO DAILY #10 tablet Referrals: Jose Nieves Chi, MD [Primary Care Provider] -
--- NOTE | 2018-12-18 19:01 | ED.VISSUMM ---
- ER Visit Summary Date of Service: 12/18/18 Chief Complaint: Allergic reaction History of Present Illness: The patient is a 33 F presenting with allergic reaction. Patient states this started 2 days ago. She states she washed her clothes at a laundromat and she believes that the laundry soap left over in the washing machine has caused an allergy. She has rash to her trunk. She has changed her clothes to clothes that were washed in a different detergent. She has been taking Benadryl and using calamine lotion at home. She complains of itching all over her trunk. She denies any other new irritants. No new medications, foods, pets. She denies difficulty breathing or swallowing. Denies other complaints. Physical Examination: Vitals are stable. Patient is afebrile. Alert no acute distress. HEENT exam is unremarkable. No mucous membrane lesions. Neck is supple. Lungs are clear and equal bilaterally. Heart is regular rate and rhythm. Extremities are unremarkable. Skin is warm and dry. Urticaria upper trunk No focal neurologic deficit. Remainder of exam is unremarkable. Emergency Department Course and Treatment: Patient is given prednisone and prescription for prednisone. She is advised to continue Benadryl for itching. Advised to follow-up with her primary care physician. Advised to return to ED if worsening complaints. Disposition: Discharge home Impression: Urticaria This note was generated with [employer] dictation software. It may contain incorrect words, spelling, and punctuation that were not noted in review of the chart prior to signing ED Disposition - Plan for ED Patient: Instructions: ED Urticaria Prescriptions: Prednisone [Deltasone] 40 mg PO DAILY #10 tablet Referrals: Jose Nieves Chi, MD [Primary Care Provider] -
[2018-12-18] MEDS: predniSONE 20 MG Tablet 60 MG PO (19:05)
== END 2018-12-18 19:12 | disposition home or self-care (01) ==
LOC: ED 19:05
PROVIDERS: Emergency Provider Emergency Medicine; Family Provider Family Medicine Geriatric Medicine; PCP Family Medicine Geriatric Medicine
DX: L50.9 Urticaria, unspecified (principal); F41.9 Anxiety disorder, unspecified; F32.9 Major depressive disorder, single episode, unspecified; Z72.0 Tobacco use
CPT/HCPCS: 99283

== ENCOUNTER 2018-12-24 19:55 | Emergency (ER) | payer MEDICAID, SELFPAY ==
[2018-12-24 19:56] VITALS: BP 137/90; PULSE 98; RESP 15; TEMP 36.7; O2SAT 98; BMI 49.6
--- NOTE | 2018-12-24 21:30 | RAD_ITS ---
STUDY: X-RAY - UNILATERAL RIBS ( LEFT ) WITH CHEST REASON FOR EXAM: Female, 33 years old. Pain TECHNIQUE - RIBS: 3 view(s) of the ribs. TECHNIQUE - CHEST: Frontal view of the chest COMPARISON: X-ray chest November 05, 2018 FINDINGS - RIBS: There are no displaced rib fractures identified. FINDINGS - CHEST: The lungs are clear. There are no pleural effusions. There is no pneumothorax. The heart is normal in size. RAD/Ribs Uni Min 3V w/PA Chest IMPRESSION: RIBS: No displaced rib fracture identified. CHEST: Clear lungs. Electronically Signed: Kory Gallo, at 21:48 EDT Tel , Service support ,
--- NOTE | 2018-12-24 22:05 | ED.DCSUM_ITS ---
- ER Visit Summary Date of Service: 12/24/18 Chief Complaint: Chest wall pain History of Present Illness: The patient is a 33 F presenting with chest wall pain. Patient states she was laying on her right side last night. She states she twisted and coughed and developed pain on her left lateral chest wall. This occurred yesterday. She has pain with coughing. She has pain with movement. She denies fever. Denies shortness of breath. Denies other complaints. Physical Examination: Vitals are stable. Patient is afebrile. Alert no acute distress. HEENT exam is unremarkable. Neck is supple. Lungs are clear and equal bilaterally. Left lateral chest wall tenderness, no crepitus Heart is regular rate and rhythm. Abdomen is soft nontender nondistended. Extremities are unremarkable. Skin is warm and dry. No rash No focal neurologic deficit. Remainder of exam is unremarkable. Emergency Department Course and Treatment: Left rib x-ray shows no acute process. Patient is given an incentive spirometer. She given Toradol IM. She given prescription for Naprosyn. Advised to follow-up with her primary care physician. Advised return to ED if worsening complaints. Disposition: Discharge home Impression: Chest wall pain This note was generated with [employer] dictation software. It may contain incorrect words, spelling, and punctuation that were not noted in review of the chart prior to signing ED Disposition - Plan for ED Patient: Referrals: Jose Nieves Chi, MD [Primary Care Provider] -
--- NOTE | 2018-12-24 22:05 | ED.DEP ---
ED Disposition - Plan for ED Patient: Instructions: ED Strain Chest Wall Prescriptions: Naproxen [Naprosyn] 500 mg PO BID PRN #20 tablet Referrals: Jose Nieves Chi, MD [Primary Care Provider] -
[2018-12-24] MEDS: Ketorolac 60 MG/2 ML Vial IM (22:15)
== END 2018-12-24 22:40 | disposition home or self-care (01) ==
LOC: ED 21:31
PROVIDERS: Emergency Provider Emergency Medicine; Family Provider Family Medicine Geriatric Medicine; PCP Family Medicine Geriatric Medicine
DX: R07.89 Other chest pain (principal); R05 Cough; Z72.0 Tobacco use
CPT/HCPCS: 71101; 96372; 99282

== ENCOUNTER 2019-10-05 10:07 | Emergency (ER) | payer MEDICARE, MEDICAID, SELFPAY ==
[2019-01-15 15:58] VITALS: BMI 49.6
[2019-10-05 10:08] VITALS: BP 96/62; PULSE 114; RESP 18; TEMP 37.1; O2SAT 99; BMI 46.8
--- NOTE | 2019-10-05 10:28 | RAD_ITS ---
STUDY: X-RAY CHEST REASON FOR EXAM: Female, 34 years old. cough, fever but not today TECHNIQUE: PA and lateral views of the chest. COMPARISON: 12/24/2018 FINDINGS: The lungs are clear and expanded. There is no demonstrated pleural abnormality. Normal size heart. Normal mediastinum and jag. Normal visualized pulmonary arteries. Normal visualized aortic arch and descending thoracic aorta. Normal visualized thoracic spine. Normal visualized ribs, clavicles, and shoulders. There is no demonstrated abnormality of the visualized soft tissue structures of the upper abdomen. RAD/Chest PA and Lateral IMPRESSION: No acute cardiopulmonary process. Electronically Signed: uV Regan MD (Brooks) at 12:05 EST , Service support ,
--- NOTE | 2019-10-05 10:30 | ED.DCSUM_ITS ---
- ER Visit Summary Date of Service: 10/05/19 Chief Complaint: Cough History of Present Illness: The patient is a 34 F who presents with cough and congestion that has been getting worse over the past 6 days. Patient states that her fever has been up to 101 at home. Patient admits to some nausea and vomiting. Patient admits to myalgias. Patient also admits to pain in her neck and back. Patient also admits to a headache. Patient denies any sputum production. Patient denies any chest pain. Patient states she did take a home test which was positive. Patient is concerned because she has had a tubal ligation in the past. Patient denies any abdominal pain. Physical Examination: Vital signs are stable. Patient is afebrile. Patient is in no acute distress. Oral mucosa is pink and moist. Oropharynx shows some mild postnasal drainage. There is some mild erythema. There are no exudates. Neck is supple. Trachea is midline. There is no JVD. Heart was regular rate and rhythm. Lungs showed few scattered rhonchi. There is good respiratory effort noted. Abdomen is soft. Bowel sounds are normal. There is no tenderness. Cranial nerves II through XII are intact. There are no focal motor or sensory deficits noted. Test Results: CBC shows mild anemia with a hemoglobin of 9.6 and hematocrit 32.2. Basic metabolic profile was essentially within normal limits. Serum hCG was negative. Emergency Department Course and Treatment: Patient was given IV fluids. Patient was given a DuoNeb here. Patient was feeling better on reevaluation. Patient was advised of her findings. Patient was instructed to drink plenty of fluids. Patient was instructed to take Tylenol or ibuprofen as needed for pain or fever. Patient was instructed to follow-up with her primary care physician in 5 to 7 days. Patient understood and was agreeable with the plan. All questions were answered. Disposition: Discharge home Impression: 1. Viral upper respiratory infection This note was generated with [employer] dictation software. It may contain incorrect words, spelling, and punctuation that were not noted in review of the chart prior to signing ED Disposition - Plan for ED Patient: Disposition: Home or Assisted Living Diagnosis: Viral upper respiratory tract infection with cough Instructions: URI, Viral, No Abx (Adult) Referrals: Guy Patiño MD [Primary Care Provider] - 5-7 Days
[2019-10-05 10:40] VITALS: PULSE 91; RESP 18
[2019-10-05] MEDS: Ipratropium/Albuterol Sulfate 3 ML AMPUL.NEB INHALATION (10:40)
[2019-10-05] MEDS: 0.9% Normal Saline 1,000 ML 1000 ML IV (10:41)
[2019-10-05 10:51] LABS: Absolute Lymphocyte Count 1.65 X10^3/uL (0.83-4.51); Absolute Neutrophil Count 5.3 X10^3/uL (2.0-7.7); Basophil# 0.03 X10^3/uL; Basophil% 0.4 % (0-1); Differential Indicated SCAN CRITERIA MET; Eosinophils% 3.9 % (0-5); Hematocrit 32.2 % (37-47); Hemoglobin 9.6 g/dL (12.0-15.0); Lymphocyte # 1.65 X10^3/ul (4.0); Lymphocyte % 21.2 % (19-41); Mean Corp Hgb Conc 29.8 g/dL (32-36); Mean Corpuscular Hgb 21.2 pg (27.0-32.0); Mean Corpuscular Volume 71.2 fL (81-99); Mean Platelet Vol. 9.9 fl (6.2-12.0); Monocyte# 0.51 X10^3/uL; Monocyte% 6.5 % (0-10); NRBC Flagged by Analyzer 0 % (0-5); Neutrophil # 5.27 X10^3/uL (2.7-7.7); Neutrophil % 67.6 % (47-70); POSITIVE MORPHOLOGY YES; Platelet Count 321 K/mm3 (150-450); RBC Distribution Width CV 21.6 % (11.6-14.6); RBC Distribution Width SD 54.6 fl (35.1-43.9); Red Blood Count 4.52 M/mm3 (4.2-5.4); White Blood Count 7.8 K/mm3 (4.4-11.0)
[2019-10-05 10:58] LABS: Internal QC Validated? YES +Cl - CLEAR BKGD; Pregnancy, Serum, hCG Quali. NEGATIVE Negative
[2019-10-05 11:05] LABS: ALB/GLOB Ratio 0.7 RATIO (0.9-2.4); AST(SGOT) 8 U/L (15-37); Alanine Aminotransfer ALT/SGPT 16 U/L (13-56); Albumin, Serum 3.1 g/dL (3.2-5.0); Alkaline Phosphatase 100 U/L (45-117); Anion Gap 3 (5-15); BUN 6 mg/dL (7-18); BUN/Creat Ratio 11.4 RATIO (10-20); Calcium,Total 8.8 mg/dL (8.5-10.1); Chloride 109 mmol/L (98-107); Creatinine, Serum 0.52 mg/dL (0.55-1.02); EST Glomerular Filtration Rate 143 mL/min (>60); Est Glom Filt Rate - Afr Amer 173 mL/min (>60); Estimated Creatinine Clearance 167.96 ml/min; Globulin 4.2 g/dL (2.2-4.2); Glucose 91 mg/dL (74-106); Potassium 3.7 mmol/L (3.5-5.1); Protein, Total 7.3 g/dL (6.4-8.2); Sodium Level 140 mmol/L (136-145)
[2019-10-05 11:07] LABS: Anisocytosis 2+; Differential Comment SCANNED; Microcytosis 2+
[2019-10-05 12:20] VITALS: BP 126/79; PULSE 88; RESP 16
== END 2019-10-05 12:21 | disposition home or self-care (01) ==
PROVIDERS: Emergency Provider Emergency Medicine; PCP Internal Medicine
DX: J06.9 Acute upper respiratory infection, unspecified (principal)
CPT/HCPCS: 71046; 80053; 84703; 85025; 94640; 96360; 96361; 99283; J7030

== ENCOUNTER 2019-10-25 20:44 | Emergency (ER) | payer MEDICARE, MEDICAID, SELFPAY ==
[2019-10-25 20:45] VITALS: BP 147/84; PULSE 119; RESP 19; TEMP 36.2; O2SAT 99; BMI 46.2
--- NOTE | 2019-10-25 21:03 | RAD_ITS ---
STUDY: X-RAY CHEST REASON FOR EXAM: Female, 34 years old. COUGH TECHNIQUE: 1 view COMPARISON: Prior chest radiograph of October 05, 2019 FINDINGS: The lungs are clear and expanded. There is no demonstrated pleural abnormality. Normal size heart. Normal mediastinum and jag. Normal visualized pulmonary arteries. Normal visualized aortic arch and descending thoracic aorta. Normal visualized thoracic spine. Normal visualized ribs, clavicles, and shoulders. There is no demonstrated abnormality of the visualized soft tissue structures of the upper abdomen. RAD/Chest 1 View (Portable) IMPRESSION: Normal x-ray examination of the chest. Electronically Signed: Cyndi Holm MD at 21:43 EDT , Service support ,
--- NOTE | 2019-10-25 21:03 | ED.VIS.GEN ---
History of Present Illness Chief Complaint: Cough Informant: Patient Onset: Month(s) Context: Gradual Onset Timing: Waxes and wanes Current Severity: Moderate Maximum Severity: Moderate Narrative: Patient presents with cough and vomiting. She was seen roughly a month ago for cough. She states her symptoms got better but never completely resolved. Yesterday her symptoms seem to worsen again. She is had subjective fever at home. She reports coughing to the point of vomiting as well as just having nausea and vomiting as well. - Past Medical History (1) ZANA (obstructive sleep apnea) Status: Chronic (2) Anxiety Status: Chronic (3) Depression Status: Chronic (4) Kidney stones Status: Chronic (5) Migraines Status: Chronic Past Medical History - Allergies and Home Meds Allergies/Adverse Reactions: Allergies ceftriaxone sodium [From Rocephin] Allergy (Verified 10/25/19 20:47) Hives tramadol Allergy (Verified 10/25/19 20:47) Hives bupropion HCl [From Wellbutrin] Adverse Reaction (Verified 10/25/19 20:47) MAKES ANXIETY WORSE Primary Care Physician: Guy Patiño MD [Primary Care Provider] - Prior records reviewed: Yes Surgical History: appendectomy, tonsillectomy Smoking Status: Current every day smoker - Family History Maternal Family History: Family History (Last Reviewed 10/29/18 @ 14:02 by Naheed Aguilar) Grandmother Asthma Thyroid disorder Mother Asthma Thyroid disorder COPD (chronic obstructive pulmonary disease) Aunt Asthma Heart disease Hypertension Thyroid disorder Emphysema, unspecified Grandfather Asthma Diabetes Hypertension Hyperlipidemia COPD (chronic obstructive pulmonary disease) Family History: Reports: COPD, Heart Disease Paternal Family History: Family History (Last Reviewed 10/29/18 @ 14:02 by Naheed Aguilar) Grandmother Asthma Thyroid disorder Mother Asthma Thyroid disorder COPD (chronic obstructive pulmonary disease) Aunt Asthma Heart disease Hypertension Thyroid disorder Emphysema, unspecified Grandfather Asthma Diabetes Hypertension Hyperlipidemia COPD (chronic obstructive pulmonary disease) Family History: Reports: Diabetes Review of Systems General: Reports: Chills, Fever, Subjective Eyes: Denies: Visual changes - bilaterally ENT: Denies: Bilateral ear pain Cardiovascular: Denies: Chest pain Respiratory: Reports: Dyspnea, Cough, Sputum Gastrointestinal: Reports: Nausea, Vomiting. Denies: Abdominal pain, Diarrhea Genitourinary: Denies: Dysuria Musculoskeletal: Reports: Extremity Pain - Right foot in a boot secondary to foot fracture Skin: Denies: Rash Neurological: Denies: Headache Allergy: Denies: Uticaria Physical Exam Vital Signs/Narrative: Vital Signs Temp Pulse Resp BP Pulse Ox 10/25/19 20:45 97.2 F L 119 H 19 H 147/84 H 99 Inital Vital Signs reviewed: Yes General: Well nourished, Well developed Head: Normocephalic ENT: Moist mucous membranes Neck: Supple Cardiovascular: Tachycardia Respiratory: No distress, - - End expiratory wheezes Abdomen: Soft, Nontender Extremities: - - Right foot in a walking boot Skin: Normal color Neurological: Alert, Oriented x3 Psychological: Normal affect Diagnostic/Tx/Re-eval Impressions Chest X-Ray 10/25/19 21:03 IMPRESSION: Normal x-ray examination of the chest. Electronically Signed: Cyndi Holm MD at 21:43 EDT , Service support , 10/25/19 21:03 Chest 1 View (Portable) [RAD] Stat - Medical Decision Making Patient was given Hycodan syrup, Zofran, and a DuoNeb treatment. On repeat evaluation lung sounds are improved. Cough is improved. She will be given prescriptions for albuterol inhaler, Zofran, Hycodan syrup, and doxycycline. ED Disposition - Plan for ED Patient: Disposition: Home or Assisted Living Diagnosis: Bronchitis Instructions: BRONCHITIS with Wheezing (Adult) Prescriptions: Prednisone [Deltasone] 40 mg PO DAILY #10 tablet Doxycycline 100 mg PO BID #20 capsule Hydrocodone Bit/Homatropine [Hycodan Syrup] 5 ml PO Q6H PRN PRN 3 Days #60 mls PRN Reason: Cough Albuterol Inhaler [Ventolin Hfa] 1 - 2 puff INHALATION Q4H PRN PRN #1 inhaler PRN Reason: Wheezing Ondansetron [Zofran Odt] 4 mg PO Q8H PRN PRN #10 tablet PRN Reason: Nausea Referrals: Guy Patiño MD [Primary Care Provider] - 1 Week
[2019-10-25 21:12] VITALS: PULSE 116; RESP 22
[2019-10-25] MEDS: Ipratropium/Albuterol Sulfate 3 ML AMPUL.NEB INHALATION (21:12)
[2019-10-25] MEDS: Ondansetron ODT 4 MG Tablet PO (21:12)
[2019-10-25] MEDS: predniSONE 20 MG Tablet 40 MG PO (22:04)
[2019-10-25] MEDS: Doxycycline 100 MG CAPSULE PO (22:04)
[2019-10-25 22:05] VITALS: BP 122/79; PULSE 113; RESP 17; O2SAT 98
== END 2019-10-25 22:06 | disposition home or self-care (01) ==
PROVIDERS: Emergency Provider Emergency Medicine; PCP Internal Medicine
DX: J40 Bronchitis, not specified as acute or chronic (principal); F17.200 Nicotine dependence, unspecified, uncomplicated
CPT/HCPCS: 71045; 94640; 99283

== ENCOUNTER → 2019-10-30 15:06 | Outpatient (CLI) | payer MEDICARE, MEDICAID, SELFPAY ==
[2019-10-30 14:30] VITALS: BMI 48.2
[2019-10-30 17:18] LABS: T4 Free Direct 0.89 ng/dL (0.76-1.46)
== END ==
PROVIDERS: PCP Internal Medicine; Referring Provider Internal Medicine; Visit Provider Internal Medicine
DX: E03.9 Hypothyroidism, unspecified (principal)
CPT/HCPCS: 36415; 84439; 84443

== ENCOUNTER 2019-12-17 08:08 | Emergency (ER) | payer MEDICARE, MEDICAID, SELFPAY ==
[2019-10-30 14:30] VITALS: BMI 48.2
[2019-12-17 08:09] VITALS: BP 141/83; PULSE 112; RESP 18; TEMP 35.6; O2SAT 100; BMI 46.3
--- NOTE | 2019-12-17 08:16 | ED.DCSUM_ITS ---
- ER Visit Summary Date of Service: 12/17/19 Chief Complaint: Right foot and ankle pain History of Present Illness: The patient is a [address] Patiño. She reports that she had surgery on her right ankle 10 months ago in [place]. This morning she had a forced inversion injury of her ankle and fell. She denies any other injuries. No blow to the head or loss of consciousness. She not on anticoagulants. Patient complains of a stabbing pain in her ankle and foot that is 10 on 10 at worst 9-10 currently. Is worsened by walking. Is been minimally relieved with rest and Tylenol. She denies any paresthesias. Physical Examination: Vitals: Stable. Afebrile. Neck: No vertebral tenderness. Full ROM without difficulty. Cleared by NEXUS criteria. Back: No vertebral tenderness. General: A&O x 3. NAD. Cardiovascular exam: Regular rate and rhythm, no murmur, rub or gallop. Respiratory exam: Chest nontender. No crepitus. Clear to auscultation bilaterally. No wheezes or stridor. Abdominal exam: Soft, nontender, nondistended, normal bowel sounds. No pain in RUQ or LUQ specifically. No peritoneal signs. Extremity: Moderate palpation over the medial malleolus on the right. Mild over the lateral malleolus. She has mild diffuse tenderness with patient over entire foot. There is no point tenderness. 2+ dorsalis pedis pulse. No soft tissue swelling or contusion. Test Results: Clinical Impression(s) from Imaging Studies Ankle X-Ray 12/17/19 08:28 IMPRESSION: No acute abnormality is seen. Soft tissue swelling. Electronically Signed: Ej Sam, at 8:55 EDT , Service support , Foot X-Ray 12/17/19 08:28 IMPRESSION: Soft tissue swelling. No acute fracture seen. Prior ORIF of the distal tibia and fibula. Electronically Signed: Ej Sam, at 8:55 EDT , Service support , Emergency Department Course and Treatment: Patient was treated with a dose of Toradol IM. She is given Huddleston and Zofran p.o. She is resting comfortably. Treatment Plan: Patient already has a walking boot. She will be discharged with crutches. She is given a prescription for 10 Huddleston. Instructed to follow-up with Dr. Garrido in 1 week if not improving. Return to the emergency department for any worsening symptoms. Disposition: To home in improved and stable condition. Impression: 1 1. Right ankle sprain. This note was generated with [employer] dictation software. It may contain incorrect words, spelling, and punctuation that were not noted in review of the chart prior to signing ED Disposition - Plan for ED Patient: Instructions: ED Sprain Ankle Prescriptions: Hydrocodone Bitart/Apap 5-325 [Huddleston 5MG-325MG] 1 tablet PO Q4H PRN PRN 2 Days #10 tablet PRN Reason: Pain Referrals: Lucille Garrido DPM [STAFF PHYSICIAN] - 1 Week if not improving ( )
--- NOTE | 2019-12-17 08:28 | RAD_ITS ---
STUDY: X-RAY - RIGHT FOOT CLINICAL: Female, 34 years old. PAIN D/T TRAUMA. SURGERY X 10 MOS AGO TECHNIQUE: 3 view(s) of the foot. COMPARISON: Comparison is made with prior study of April 28, 2017. FINDINGS: The patient is status post ORIF of the distal tibia and fibula Normal talus, calcaneus, and tarsal bones. Normal visualized subtalar, talonavicular, calcaneocuboid, tarsal and tarsometatarsal articulations. Normal metatarsi. Normal metatarsophalangeal joint of the great toe. Normal tibial and fibular sesamoid bones. Normal interphalangeal joint of the great toe. Normal phalanges of the great toe. Normal second through fifth metatarsophalangeal joints. Normal interphalangeal joints and phalanges of the lesser toes. Soft tissue swelling. RAD/Foot min 3 Views IMPRESSION: Soft tissue swelling. No acute fracture seen. Prior ORIF of the distal tibia and fibula. Electronically Signed: Ej Sam, at 8:55 EDT , Service support ,
--- NOTE | 2019-12-17 08:28 | RAD_ITS ---
STUDY: X-RAY - RIGHT ANKLE REASON FOR EXAM: Female, 34 years old. PAIN D/T TRAUMA. SURGERY X 10 MOS AGO TECHNIQUE: 3 view(s) of the ankle. COMPARISON: Comparison is made with prior examination dated March 10, 2018. FINDINGS: Prior surgery of the distal fibula and medial malleolus. Normal medial and lateral malleoli. Normal tibiotalar articulation and ankle mortise. Normal visualized talus and calcaneus. The visualized subtalar, talonavicular, calcaneocuboid and tarsal articulations are normal. Soft tissue swelling more prominent on the medial aspect. RAD/Ankle min 3 Views IMPRESSION: No acute abnormality is seen. Soft tissue swelling. Electronically Signed: Ej Sam, at 8:55 EDT , Service support ,
[2019-12-17] MEDS: Ondansetron ODT 4 MG Tablet PO (08:36)
[2019-12-17] MEDS: HYDROcodone Bitartrate/Apap 5/325 Tablet PO (08:37)
[2019-12-17] MEDS: Ketorolac 60 MG/2 ML Vial IM (08:39)
== END 2019-12-17 09:31 | disposition home or self-care (01) ==
PROVIDERS: Emergency Provider Emergency Medicine; PCP Internal Medicine
DX: S93.401A Sprain of unspecified ligament of right ankle, initial encounter (principal); F17.200 Nicotine dependence, unspecified, uncomplicated; X58.XXXA Exposure to other specified factors, initial encounter
CPT/HCPCS: 73610; 73630; 96372; 99285

== ENCOUNTER → 2020-03-20 10:41 | Outpatient (CLI) | payer MEDICARE, MEDICAID, SELFPAY ==
[2020-03-20 10:17] VITALS: BMI 46.3
[2020-03-20 12:26] LABS: Absolute Lymphocyte Count 2.32 X10^3/uL (0.83-4.51); Absolute Neutrophil Count 8.1 X10^3/uL (2.0-7.7); Basophil# 0.06 X10^3/uL; Basophil% 0.5 % (0-1); Eosinophil# 0.42 X10^3/uL; Eosinophils% 3.6 % (0-5); Hematocrit 35.3 % (37-47); Hemoglobin 10.4 g/dL (12.0-15.0); Lymphocyte # 2.32 X10^3/ul (4.0); Mean Corp Hgb Conc 29.5 g/dL (32-36); Mean Corpuscular Hgb 21.5 pg (27.0-32.0); Mean Corpuscular Volume 73.1 fL (81-99); Mean Platelet Vol. 10.6 fl (6.2-12.0); Monocyte# 0.65 X10^3/uL; Monocyte% 5.6 % (0-10); NRBC Flagged by Analyzer 0 % (0-5); Neutrophil # 8.11 X10^3/uL (2.7-7.7); Neutrophil % 69.9 % (47-70); POSITIVE MORPHOLOGY YES; Platelet Count 417 K/mm3 (150-450); RBC Distribution Width CV 21.1 % (11.6-14.6); RBC Distribution Width SD 53.1 fl (35.1-43.9); Red Blood Count 4.83 M/mm3 (4.2-5.4); White Blood Count 11.6 K/mm3 (4.4-11.0)
[2020-03-20 12:30] LABS: Differential Indicated SCAN CRITERIA MET
[2020-03-20 12:47] LABS: Internal QC Validated? YES +Cl - CLEAR BKGD; Pregnancy, Serum, hCG Quali. NEGATIVE Negative; Vitamin D,25 Hydroxy 26.2 ng/mL
[2020-03-20 13:03] LABS: ALB/GLOB Ratio 0.8 RATIO (0.9-2.4); AST(SGOT) 15 U/L (15-37); Alanine Aminotransfer ALT/SGPT 23 U/L (13-56); Albumin, Serum 3.5 g/dL (3.2-5.0); Alkaline Phosphatase 105 U/L (45-117); Anion Gap 4 (5-15); BUN 8 mg/dL (7-18); BUN/Creat Ratio 13.6 RATIO (10-20); Chloride 106 mmol/L (98-107); Creatinine, Serum 0.59 mg/dL (0.55-1.02); EST Glomerular Filtration Rate 125 mL/min (>60); Est Glom Filt Rate - Afr Amer 152 mL/min (>60); Ferritin 14 ng/mL (8-252); Globulin 4.6 g/dL (2.2-4.2); Glucose 96 mg/dL (74-106); Iron 24 ug/dL (50-170); Iron Binding Capacity,Total 348 ug/dL (250-450); PERCENT IRON SATURATION 6.9 % (15.0-55.0); Potassium 4.1 mmol/L (3.5-5.1); Protein, Total 8.1 g/dL (6.4-8.2); Sodium Level 139 mmol/L (136-145); T4 Free Direct 0.79 ng/dL (0.76-1.46)
[2020-03-20 13:10] LABS: Anisocytosis 1+; Hypochromasia 1+; Microcytosis 1+
== END ==
PROVIDERS: PCP Internal Medicine; Referring Provider Nurse Practitioner Family; Visit Provider Nurse Practitioner Family
DX: R53.83 Other fatigue (principal); E55.9 Vitamin D deficiency, unspecified; N92.0 Excessive and frequent menstruation with regular cycle; D64.9 Anemia, unspecified; E03.9 Hypothyroidism, unspecified; G47.33 Obstructive sleep apnea (adult) (pediatric); F32.9 Major depressive disorder, single episode, unspecified
CPT/HCPCS: 36415; 80053; 82306; 82728; 83540; 83550; 84439; 84443; 84703; 85025

== ENCOUNTER → 2020-04-23 12:19 | Outpatient (CLI) | payer MEDICARE, MEDICAID, SELFPAY ==
[2020-03-20 10:17] VITALS: BMI 46.3
--- NOTE | 2020-04-23 12:21 | MRI_ITS ---
STUDY: MRI RIGHT ANKLE WITHOUT CONTRAST REASON FOR EXAM: Female, 35 years old. chronic right ankle instability, hx prior ankle surgery 03/2019, pain medial and anterior TECHNIQUE: Standardized fat and water weighted pulse sequences were obtained in all 3 orthogonal planes. COMPARISON: Right ankle x-ray dated DECEMBER 17, 2019 FINDINGS: Distal tibia and fibula hardware results in significant metallic artifact and limited visualization of the underlying structures. Cortical plate screw anchors and osteotomy defects seen across the distal tibia and fibula just above the syndesmosis. Medial malleolus obliquely oriented screws are also present. Reidentification of sclerotic signal on the lateral side of the distal one third tibia down to the plafond, likely related to prior trauma or postsurgical changes or mild osteonecrosis. Mild to moderate narrowing of the and minimal cortical anteriorly and posteriorly. Mild subcutaneous edema is present. A small ankle joint effusion is also seen. The synovium in anterior aspect of the ankle joint is mildly thickened. Normal posterior tibialis tendon. Normal flexor digitorum longus tendon. Normal flexor hallucis longus tendon. Normal peroneus longus and brevis tendons. Normal tibialis anterior tendon. Normal extensor hallucis longus tendon. Normal extensor digitorum longus tendons. Minimal intratendinous increased signal seen in the distal third of the Achilles tendon just proximal to the calcaneal insertion site compatible with minimal focal tendinosis. The remaining aspects of the Achilles tendon are normal. And teno-osseous insertion. Normal plantar fascia. Normal plantar calcaneal tubercles. Normal intrinsic muscles of the rearfoot. Normal distal tibiofibular syndesmotic ligamentous complex. Normal lateral ligamentous complex. Normal subtalar ligaments and sinus tarsi. Normal deltoid ligamentous complexes. Normal plantar calcaneonavicular (spring) ligament. Normal tibiotalar articulation. Normal talar dome. Minor subchondral reactive signal is present in the anterior process of the talus just beneath the articular surface. Normal subtalar articulations. Normal talonavicular articulation. Normal calcaneocuboid articulation. Normal navicular-cuneiform articulations. MRI/Lower Ext Joint Only (Routine) IMPRESSION: 1. Minimal intratendinous increased signal seen in the distal third of the Achilles tendon just proximal to the calcaneal insertion site compatible with minimal focal tendinosis. The remaining aspects of the Achilles tendon are normal. 2. Mild subcutaneous edema is present. A small ankle joint effusion is also seen. The synovium in anterior aspect of the ankle joint is mildly thickened. 3. Reidentification of sclerotic signal on the lateral side of the distal one third tibia down to the plafond, likely related to prior trauma or postsurgical changes or mild osteonecrosis. Electronically Signed: Curry Arnold MD at 19:56 EDT , Service support ,
== END ==
PROVIDERS: PCP Internal Medicine; Referring Provider Podiatrist; Visit Provider Podiatrist
DX: M25.371 Other instability, right ankle (principal)
CPT/HCPCS: 73721

== ENCOUNTER → 2020-05-08 14:25 | Outpatient (CLI) | payer MEDICARE, MEDICAID, SELFPAY ==
[2020-05-08 13:22] VITALS: BMI 46.3
[2020-05-08 14:30] LABS: Bacteria 0 SEEN /hpf (None Seen); Mucous, Urine 0 SEEN /hpf (<or=2+); Red Blood Cells-Urine 0 SEEN /hpf (0-5); White Blood Cells 0 SEEN /hpf (0-5)
[2020-05-08 15:08] LABS: Color, Urine Yellow (Yellow); Glucose, Dipstick Normal (Normal); Ketone-Dipstick Negative (Negative); Leukocyte Esterase-Dipstick Negative /ul (Negative); Nitrite-Dipstick Negative (Negative); Occult Blood-Urine Negative /ul (Negative); Protein-Dipstick Negative (Negative); Specific Gravity, Urine 1.005 (1.002-1.030); Urine Bilirubin Dipstick Negative (Negative); Urine Clarity Clear (Clear); Urine Urobilinogen Normal (Normal)
[2020-05-08 15:21] LABS: Squamous Epithelial Cells - UA 0-5 SEEN /hpf (5-10)
== END ==
PROVIDERS: PCP Internal Medicine; Referring Provider Nurse Practitioner Family; Visit Provider Nurse Practitioner Family
DX: R10.9 Unspecified abdominal pain (principal); R39.9 Unspecified symptoms and signs involving the genitourinary system
CPT/HCPCS: 81001; 87086; 87088

== ENCOUNTER → 2020-05-20 13:51 | Outpatient (CLI) | payer MEDICARE, MEDICAID, SELFPAY ==
[2020-05-08 13:22] VITALS: BMI 46.3
--- NOTE | 2020-05-20 13:53 | US_ITS ---
STUDY: THYROID ULTRASOUND REASON FOR EXAM: Female, 35 years old. GOITER -- THYROMEGALY -- AREA OF PALP LUMP ON RT NECK TECHNIQUE: Ultrasound evaluation of the thyroid was performed with real-time and static kent-scale imaging. COMPARISON: 04/13/2017 FINDINGS: RIGHT LOBE: The right lobe of the thyroid gland measures 9.5 x 3.4 x 4.0 cm. There is a heterogeneous echotexture. There are no demonstrated solid, cystic or complex lesions. LEFT LOBE: The left lobe of the thyroid gland measures 8.8 x 3.8 x 3.9 cm. There is a heterogeneous echotexture. There are no demonstrated solid, cystic or complex lesions. ISTHMUS: The isthmus measures 13 mm. The regional lymph nodes are normal including a 17 x 16 x 7 mm lymph node in region of palpable abnormality (directed by the patient). US/Thyroid IMPRESSION: 1. Thyromegaly with diffuse gland heterogeneity, increased size as prior ultrasound. No discrete nodule. Electronically Signed: Vu Regan MD (Brooks) at 9:04 EDT , Service support ,
== END ==
PROVIDERS: PCP Internal Medicine; Referring Provider Nurse Practitioner Family; Visit Provider Nurse Practitioner Family
DX: E01.0 Iodine-deficiency related diffuse (endemic) goiter (principal)
CPT/HCPCS: 76536

== ENCOUNTER → 2020-06-01 17:44 | Outpatient (CLI) | payer MEDICARE, MEDICAID, SELFPAY ==
[2020-05-08 13:22] VITALS: BMI 46.3
== END ==
PROVIDERS: PCP Internal Medicine; Referring Provider Internal Medicine; Visit Provider Internal Medicine
DX: Z20.828 Contact with and (suspected) exposure to other viral communicable diseases (principal)
CPT/HCPCS: 87635; C9803; U0003

== ENCOUNTER 2020-08-29 16:30 | Emergency (ER) | payer MEDICARE, MEDICAID, SELFPAY ==
[2020-08-29 16:31] VITALS: BP 128/77; PULSE 106; RESP 17; TEMP 36.4; O2SAT 99; BMI 46.2
--- NOTE | 2020-08-29 16:39 | ED.DCSUM_ITS ---
History of Present Illness Chief Complaint: Headache Informant: Patient Onset: Today Current Severity: Moderate Maximum Severity: Moderate Narrative: Patient present secondary to migraine headache. She states she woke at 8:00 this morning with headache, took Tylenol, and went back to bed. Patient states she woke again at 2:00 with the headache was still present. She had some mild nausea but no vomiting. No vision changes. She does report light and sound sensitivities. Patient denies any recent head injury. She denies URI symptoms. - Past Medical History (1) Anxiety Status: Chronic (2) Chronic low back pain Status: Chronic (3) Depression Status: Chronic (4) Migraines Status: Chronic (5) ZANA (obstructive sleep apnea) Status: Chronic Past Medical History - Allergies and Home Meds Allergies/Adverse Reactions: Allergies ceftriaxone sodium [From Rocephin] Allergy (Verified 08/29/20 16:31) Hives tramadol Allergy (Verified 08/29/20 16:31) Hives bupropion HCl [From Wellbutrin] Adverse Reaction (Verified 08/29/20 16:31) MAKES ANXIETY WORSE Primary Care Physician: Guy Patiño MD [Primary Care Provider] - Prior records reviewed: Yes Surgical History: appendectomy, tonsillectomy Smoking Status: Current every day smoker - Family History Maternal Family History: Family History (Last Reviewed 03/20/20 @ 10:16 by Ayla Bates) Grandmother Asthma Thyroid disorder Mother Asthma Thyroid disorder COPD (chronic obstructive pulmonary disease) Aunt Asthma Heart disease Hypertension Thyroid disorder Emphysema, unspecified Grandfather Asthma Diabetes Hypertension Hyperlipidemia COPD (chronic obstructive pulmonary disease) Family History: Reports: COPD, Heart Disease Paternal Family History: Family History (Last Reviewed 03/20/20 @ 10:16 by Ayla Bates) Grandmother Asthma Thyroid disorder Mother Asthma Thyroid disorder COPD (chronic obstructive pulmonary disease) Aunt Asthma Heart disease Hypertension Thyroid disorder Emphysema, unspecified Grandfather Asthma Diabetes Hypertension Hyperlipidemia COPD (chronic obstructive pulmonary disease) Family History: Reports: Diabetes Review of Systems General: Denies: Chills, Fever Eyes: Denies: Visual changes - bilaterally ENT: Denies: Bilateral ear pain Cardiovascular: Denies: Chest pain Respiratory: Denies: Dyspnea, Cough Gastrointestinal: Reports: Nausea. Denies: Abdominal pain, Vomiting Musculoskeletal: Denies: Extremity Pain Skin: Denies: Rash Neurological: Reports: Headache Hematologic: Denies: Easy bruising, Easy bleeding Allergy: Denies: Uticaria Physical Exam Vital Signs/Narrative: Vital Signs Temp Pulse Resp BP Pulse Ox 08/29/20 16:31 97.6 F L 106 H 17 128/77 H 99 Inital Vital Signs reviewed: Yes General: Well nourished, Well developed Head: Normocephalic ENT: Moist mucous membranes Neck: Supple Cardiovascular: Regular rate, Regular rhythm Respiratory: No distress, CTA bilaterally Abdomen: Soft, Nontender Extremities: Nontender Skin: Normal color Neurological: Alert, Oriented x3, Normal Strength, Normal Sensation Psychological: Normal affect Diagnostic/Tx/Re-eval - Medical Decision Making Patient was given Toradol, Reglan, Benadryl, and IV fluids. On repeat evaluation headache is improved. She will be discharged home to sleep in a quiet dark room. I will write her oral tabs of each of these medications that she can try at home for migraines if she is unable to get them to resolve with her normal medication. ED Disposition - Plan for ED Patient: Disposition: Home or Assisted Living Diagnosis: Migraine Instructions: ED, Migraine (Classical) Prescriptions: DiphenhydrAMINE [Benadryl] 50 mg PO TID PRN PRN #20 cap PRN Reason: Migraine Symptoms Transmission Status: Pending to [facility] Metoclopramide [Reglan] 10 mg PO Q8H PRN PRN #10 tab PRN Reason: Migraine Symptoms Transmission Status: Pending to [facility] Ketorolac [Toradol] 10 mg PO Q6H PRN #10 tab PRN Reason: Migraine Symptoms Transmission Status: Pending to [facility] Referrals: Guy Patiño MD [Primary Care Provider] - 3-5 Days if not improving
[2020-08-29] MEDS: DiphenhydrAMINE 50 MG/ML Syringe 25 MG IV (16:56)
[2020-08-29] MEDS: Ketorolac 30 MG/ML Syringe IV (16:56)
[2020-08-29] MEDS: 0.9% Normal Saline 1,000 ML 999 ML IV (16:56)
[2020-08-29] MEDS: Metoclopramide 10 MG/2 ML Vial IV (16:56)
== END 2020-08-29 18:21 | disposition home or self-care (01) ==
PROVIDERS: Emergency Provider Emergency Medicine; PCP Internal Medicine
DX: G43.909 Migraine, unspecified, not intractable, without status migrainosus (principal); F17.200 Nicotine dependence, unspecified, uncomplicated
CPT/HCPCS: 96374; 96375; 99283; J7030; A4216

== ENCOUNTER 2020-10-03 13:48 | Emergency (ER) | payer MEDICARE, MEDICAID, SELFPAY ==
[2020-10-03 13:48] VITALS: BP 146/81; PULSE 101; RESP 18; TEMP 36.8; O2SAT 100; BMI 49.1
[2020-10-03] MEDS: 0.9% Normal Saline 1,000 ML 1000 ML IV (14:22)
[2020-10-03] MEDS: Ondansetron 4 MG/2 ML Vial IV (14:23)
--- NOTE | 2020-10-03 14:24 | ED.DCSUM_ITS ---
- ER Visit Summary Date of Service: 10/03/20 Chief Complaint: Vomiting History of Present Illness: The patient is a [address] Patiño. She reports that she began vomiting approximately 5 hours ago. She is vomited 4 times. No blood in her emesis. No abdominal pain. No diarrhea. Her last bowel was yesterday. No melena or hematochezia. She had frequent urination for the past 2 weeks, but no dysuria. Last menstrual period was last week. Denies any vaginal bleeding or discharge. Patient denies sick contacts. Has not been camping out of the country. No possible bad food exposure. Does not drink well water. No recent antibiotic use. Physical Examination: Vitals: Stable. Afebrile. General: Well-nourished and well-developed. Head: Normocephalic atraumatic. Neck: Supple, no lymphadenopathy. No JVD. Nontender. Cardiovascular: Regular rate and rhythm. No murmurs. Respiratory: No respiratory distress. Clear to auscultation bilaterally. Abdominal: Soft, nontender, nondistended, normal bowel sounds. No guarding, rebound, or peritoneal signs. Back: Nontender. Extremities: Nontender, no edema. Skin: Normal color, no rash. Neurologic: Alert and oriented ?3. Cranial nerves II through XII are intact. Normal strength and sensation. Psych: Normal affect. Test Results: Urinalysis shows no evidence of infection. test is negative. Emergency Department Course and Treatment: Patient had an IV placed. She is given a liter normal saline. She is given Zofran IV. She is resting more comfortably. Treatment Plan: Patient be discharged with Zofran. Instructed follow-up with her primary care physician in 1 to 2 days if not improving. Return to the emergency department for any worsening symptoms. Disposition: To home in improved and stable condition. Impression: 1. Vomiting. This note was generated with [employer] dictation software. It may contain incorrect words, spelling, and punctuation that were not noted in review of the chart prior to signing ED Disposition - Plan for ED Patient: Instructions: ED Vomiting (Adult) Prescriptions: Ondansetron [Zofran Odt] 4 mg PO Q8H PRN PRN #10 tab PRN Reason: Nausea Referrals: Guy Patiño MD [Primary Care Provider] - 1-2 Days if not improving
[2020-10-03 14:29] LABS: Red Blood Cells-Urine 0 SEEN /hpf (0-5)
[2020-10-03 14:34] LABS: Internal QC Validated? YES +Cl - CLEAR BKGD; Pregnancy, Serum, hCG Quali. NEGATIVE Negative
[2020-10-03 14:36] LABS: Color, Urine Yellow (Yellow); Glucose, Dipstick Normal (Normal); Ketone-Dipstick 5 mg/dl (Negative); Leukocyte Esterase-Dipstick 25 /ul (Negative); Nitrite-Dipstick Negative (Negative); Occult Blood-Urine Negative /ul (Negative); Protein-Dipstick 15 mg/dl (Negative); Specific Gravity, Urine 1.025 (1.002-1.030); Urine Bilirubin Dipstick Negative (Negative); Urine Clarity Sl. Cloudy (Clear); Urine Urobilinogen 1 mg/dl (Normal)
[2020-10-03 14:51] LABS: Bacteria 2+ /hpf (None Seen); Mucous, Urine 1+ /hpf (<or=2+); Squamous Epithelial Cells - UA 5-10 SEEN /hpf (5-10); White Blood Cells 0-5 SEEN /hpf (0-5)
== END 2020-10-03 16:51 | disposition home or self-care (01) ==
LOC: ED 14:36
PROVIDERS: Emergency Provider Emergency Medicine; PCP Internal Medicine
DX: R11.10 Vomiting, unspecified (principal); F17.200 Nicotine dependence, unspecified, uncomplicated
CPT/HCPCS: 81001; 84703; 96361; 96374; 99284; J7030; A4216; J2405

== ENCOUNTER 2020-10-25 11:54 | Emergency (ER) | payer MEDICARE, MEDICAID, SELFPAY ==
[2020-10-25 11:55] VITALS: BP 109/71; PULSE 109; RESP 16; TEMP 36.7; O2SAT 97; BMI 47.0
--- NOTE | 2020-10-25 12:12 | RAD_ITS ---
STUDY: X-RAY CHEST REASON FOR EXAM: Female, 35 years old. Cough TECHNIQUE: Single AP portable view of the chest. COMPARISON: 10/25/2019 FINDINGS: The lungs are clear and expanded. There is no demonstrated pleural abnormality. Normal size heart. Normal mediastinum and jag. Normal visualized pulmonary arteries. Normal visualized aortic arch and descending thoracic aorta. Normal visualized thoracic spine. Normal visualized ribs, clavicles, and shoulders. There is no demonstrated abnormality of the visualized soft tissue structures of the upper abdomen. RAD/Chest 1 View (Portable) IMPRESSION: Normal x-ray examination of the chest. Electronically Signed: Prince Waller MD at 13:30 EDT Tel , Service support ,
[2020-10-25] MEDS: Ondansetron ODT 4 MG Tablet PO (12:46)
--- NOTE | 2020-10-25 13:37 | ED.DCSUM_ITS ---
- ER Visit Summary Date of Service: 10/25/20 Chief Complaint: Cough History of Present Illness: The patient is a [address] Patiño. Reports that she has a cough began 5 days ago and worsened yesterday. Productive green sputum without blood. Reports has had mild shortness of breath and has been whe ezing. She had a fever to 100.7 degrees. She also complains of chills. Patient reports that she began vomiting yesterday. She vomited 4 times yesterday. No blood in her emesis. She has not vomited today. Physical Examination: Vitals: Stable. Afebrile. General: Well-nourished and well-developed. Head: Normocephalic atraumatic. Neck: Supple, no lymphadenopathy. No JVD. Nontender. Cardiovascular: Regular rate and rhythm. No murmurs. Respiratory: No respiratory distress. Clear to auscultation bilaterally. Abdominal: Soft, nontender, nondistended, normal bowel sounds. No guarding, rebound, or peritoneal signs. Back: Nontender. Extremities: Nontender, no edema. Skin: Normal color, no rash. Neurologic: Alert and oriented ?3. Cranial nerves II through XII are intact. Normal strength and sensation. Psych: Normal affect. Test Results: Covid is negative. Clinical Impression(s) from Imaging Studies Chest X-Ray 10/25/20 12:12 IMPRESSION: Normal x-ray examination of the chest. Electronically Signed: Prince Waller MD at 13:30 EDT Tel , Service support , Emergency Department Course and Treatment: Patient refused an IV. She is given Zofran p.o. She is been able to tolerate p.o. without difficulty. Treatment Plan: Patient be discharged Tessalon Perles and Zofran. Instructed follow-up with her primary care physician in 1 week if not improving. Return to the emergency department for any worsening symptoms. Disposition: To home in improved and stable condition. Impression: 1. URI. 2. Vomiting. This note was generated with [employer] software. It may contain incorrect words, spelling, and punctuation that were not noted in review of the chart prior to signing ED Disposition - Plan for ED Patient: Instructions: ED Bronchitis, No Antibiotic (Adult) Prescriptions: Benzonatate [Tessalon Perle] 200 mg PO TID PRN PRN #20 capsule PRN Reason: Cough Ondansetron [Zofran Odt] 4 mg PO Q8H PRN PRN #10 tablet PRN Reason: Nausea Referrals: Guy Patiño MD [Primary Care Provider] - 3-5 Days if not improving
== END 2020-10-25 13:55 | disposition home or self-care (01) ==
LOC: ED 13:07
PROVIDERS: Emergency Provider Emergency Medicine; PCP Internal Medicine
DX: J06.9 Acute upper respiratory infection, unspecified (principal); R11.10 Vomiting, unspecified; F17.200 Nicotine dependence, unspecified, uncomplicated; F32.9 Major depressive disorder, single episode, unspecified
CPT/HCPCS: 71045; 87426; 99283

== ENCOUNTER → 2020-12-25 10:52 | Outpatient (CLI) | payer MEDICARE, MEDICAID, SELFPAY ==
[2020-10-26 09:48] VITALS: BMI 47.0
[2020-12-28 20:48] LABS: HSV Culture Without Typing NEGATIVE
[2020-12-29 18:54] LABS: HPV Reflexed? NOT INDICATED
== END ==
PROVIDERS: PCP Internal Medicine; Visit Provider Obstetrics & Gynecology
DX: Z12.4 Encounter for screening for malignant neoplasm of cervix (principal); B00.9 Herpesviral infection, unspecified
CPT/HCPCS: 87255; 88175; G0145

== ENCOUNTER 2021-08-02 05:43 | Day surgery (SDC) | payer MEDICARE, MEDICAID, SELFPAY ==
--- NOTE | 2021-07-28 12:29 | EKG12_ITS ---
Test Reason : PREOP Blood Pressure : / mmHG Vent. Rate : 100 BPM Atrial Rate : 100 BPM P-R Int : 138 ms QRS Dur : 086 ms QT Int : 346 ms P-R-T Axes : 068 051 060 degrees QTc Int : 446 ms Normal sinus rhythm Normal ECG Confirmed by JEANNA CHOUDHARY, ELIAZAR ([id number]), associate editor RUBI GAN ([id number]) on 07/28/2021 2:01:19 PM Referred By: Quincy Campbell Confirmed By:ELIAZAR MEEKS MD
[2021-07-28 14:09] LABS: Hematocrit 34.4 % (37-47); Hemoglobin 10.3 g/dL (12.0-15.0); Mean Corp Hgb Conc 29.9 g/dL (32-36); Mean Corpuscular Hgb 22.2 pg (27.0-32.0); Mean Corpuscular Volume 74.3 fL (81-99); Mean Platelet Vol. 10.5 fl (6.2-12.0); POSITIVE MORPHOLOGY YES; Platelet Count 359 K/mm3 (150-450); RBC Distribution Width CV 21.4 % (11.6-14.6); RBC Distribution Width SD 55.8 fl (35.1-43.9); Red Blood Count 4.63 M/mm3 (4.2-5.4); White Blood Count 11.4 K/mm3 (4.4-11.0)
[2021-07-28 14:15] LABS: Scan Indicated on CBC? Y/N YES- FLAGS NOTED
[2021-07-28 14:17] LABS: Prothrombin Time (Protime)PT. 12.7 SECONDS (11.7-14.9)
[2021-07-28 14:18] LABS: Partial Thromboplast Time 34.4 Seconds (24.1-36.2)
[2021-07-28 14:53] LABS: Anion Gap 4 (5-15); BUN 9 mg/dL (7-18); BUN/Creat Ratio 17.9 RATIO (10-20); Calcium,Total 8.9 mg/dL (8.5-10.1); Chloride 107 mmol/L (98-107); EST Glomerular Filtration Rate 148 mL/min (>60); Est Glom Filt Rate - Afr Amer 180 mL/min (>60); Glucose 86 mg/dL (74-106); Potassium 3.6 mmol/L (3.5-5.1); Sodium Level 139 mmol/L (136-145)
[2021-07-28 16:08] LABS: EST Glomerular Filtration Rate 151 mL/min (>60); Est Glom Filt Rate - Afr Amer 182 mL/min (>60)
[2021-07-29 08:18] LABS: Magnesium 1.9 mg/dL (1.6-2.6)
[2021-08-02] VITALS (8 sets, daily range): BP systolic 105–131; BP diastolic 67–80; PULSE 88–118; RESP 16–18; TEMP 36–36.7; O2SAT 94–100; BMI 48.2
[2021-08-02] MEDS: Gabapentin 600 MG Tablet PO (06:40)
[2021-08-02] MEDS: Acetaminophen 500 MG Tablet 1000 MG PO (06:40)
[2021-08-02] MEDS: Lactated Ringers 1,000 ML 40 ML IV (06:41)
[2021-08-02 06:42] LABS: Internal QC Validated? YES +Cl - CLEAR BKGD; Pregnancy, Urine Negative Negative
--- NOTE | 2021-08-02 07:16 | HP.PCM_ITS ---
History and Physical Date of Admission: 08/02/21 Surgical History and Physical Tracy Uriarte, a 36 year old female 3 0 0 0 3, presents for RAVH/BS on August 02, 2021 at 10:00. -- Heavy Frequent Menses with Anemia; Failed D and C; Unable to do Ablation -- Irregular Bleeding/Abdominal & Low Back Pain. Tracy claims it started gradually and has been present seems to be worsening. It occurs with menses. It is located in the vagina. It is located in the lower abdomen.; It is located in the lower back. Tracy characterizes it to be to the back. Tracy characterizes the quality cramping. Tracy characterizes the quality aching. Tracy characterizes the quality pressure. Severity is moderate and not improv ing. Ultrasound witout polyps or fibroids. No intermenstrual bleeding. D and C not helpful. MEDICATIONS HISTORY: Current medications prescribed by our practice are: 1. albuterol sulfate 90 mcg/actuation HFA Aerosol Inhaler, two puffs every 4 hours as needed Patient is also takin. Ativan 1 mg tablet, prn 2. Lexapro 10 mg tablet, One pill by mouth once a day ALLERGIES: rocephin, Itching, high bp, Rocephin, Hypertension, Ultram, Hives and/or rash, Wellbutrin, Anxiety, Rocephin and Hives and/or rash Infections - unknown chicken pox status - will chk Varicella Zoster IgG, IgM 09/14/11 Illnesses - bipolar, depression, anxiety, asthma with hot weather Accidents - no injuries of consequence Hospitalizations - Childbirth and see surgery Review of Systems: GENERAL - Denies fever, or chills SKIN - Denies skin changes EYES - Denies visual changes EARS - Denies difficulty hearing NOSE - Denies nasal congestion or bleeding MOUTH - Denies sore throat or difficulty swallowing NECK - Denies pain or swelling RESPIRATORY - Denies shortness of breath or wheezing CARDIOVASCULAR - Denies palpitations or chest pain GASTROINTESTINAL - Denies nausea, vomiting, diarrhea, constipation GENITOURINARY - Denies dysuria, frequency of urination, incontinence of urine MUSCULOSKELETAL - Denies joint or muscle pain NEUROLOGICAL - Denies localized numbness or weakness PSYCHIATRIC - Denies depression or anxiety ENDOCRINE - Denies heat or cold intolerance, weight loss or gain HEMATO-IMMUNOLOGIC - Denies excesive bleeding with cuts SOCIAL HISTORY: Alcohol Use - denies drinking Smoking - 1 PPD (ATQ) Diet - no special diet Lifestyle - moderate stress lifestyle and Exercise - minimal Seat Belt Use - always 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 Sister: hypothyroidism and Congenital heart disease. Maternal Grandmother: hypothyroidism. Maternal Grandfather: lupus, DM II and Heart Disease. MENSTRUAL HISTORY: LMP Known?- DefiniteAmount/Duration - 4 days, Regularity - Regular, Frequency - 13 days days, Prior Menses - 01/09/2018, LMP - 07/11/21 PAST PREGNANCIES: Total Pregnancies - 3; Full Term Pregnancies - 3; Premature - 0; Abortions, Induced - 0; Abortions, Spontaneous - 0; Ectopics - 0; Multiple Births - 0; Living Children - 3 SURGICAL HISTORY: 1. Gallbladder removal 2016 2. 12/28/2007 ; Dr. Fernandez - [facility] 3. 07/12/2010 ; Dr. Lockwood - Prior 4. tonsils, 2003 5. ankle 2003 6. 03/15/2012 Repeat C Section and BTO, filshie clips ; Naheed Hayes M.D. - 37 wk, labor 7. 03/22/2019 R ankle surgery 8. 03/15/2012 /BTO ; Naheed Hayes M.D. 9. 01/16/2017 dx hysteroscopy, D and C ; Quincy Campbell M.D. PHYSICAL EXAM BP- 114/76 Sitting, Right arm, regular cuff Weight- 326.0 lbs Height- 70 inch BMI:46.8 CONSTITUTIONAL - NAD, well nourished, and well developed SKIN - No rash, lesions, or ulcers HEENT - Normocephalic, PERRLA, EOMI NECK - No nodes, no nuchal rigidity and thyroid normal size and texture LYMPH NODES - Palpation of lymph nodes in neck and groins within normal limits LUNGS - CTA x2 without wheezes, crackles or rales CARDIAC - Regular rate and rhythm without rubs, murmurs, or gallops ABDOMEN - Without hepatosplenomegaly, distention, masses, rebound, or guarding; normal bowel sounds; no hernias EXTREMITIES - No edema or calf tenderness NEUROLOGICAL - Cranial nerves II-XII grossly intact PSYCHIATRIC - A and O to time, place, person, mood and affect External Genitial Vagina - 0.25 cm ulcer right posterior vulva Urethra/Urethral Meatus - non-tender Bladder - non-tender Vagina - vaginal shane are pink and moist without loss of rugae and no evidence of atropy Cervix - without cervical motion tenderness and has normal size and features without evident lesions and high in vagina Uterus - multiparous size 6 cm & wt 75-125 g and severely anteverted Adnexa - clear without massess or tenderness and exam limited by habitus ASSESSMENT/PLAN: Menorrhage and Anemia; Dysmenorrhea Unresponsive to D and C; unable to do ablation. Discussed options for treatment and patient desires proceeding with hysterectomy. Plan RAVH/BS. Discussed RBAs and all questions answered.
--- NOTE | 2021-08-02 07:30 | HYST_PTH ---
PATIENT: NEGRITO BUSTAMANTE [place] [facility] [id number] AGE/SX: 36/F ROOM: RE08/02/[address]: Dr. Quincy Campbell MD : 1985 BED: DIS: 08/02/2021 SPEC #: [id number] RECD: 08/02/21 11:15 STATUS: CARMELITA RECyn #: [id number] MANPREET: 08/02/21 07:[address]: Quincy Campbell DEPT: SURGICAL PATHOLOGY RECD BY: Sirena Jensen ENTERED: 08/02/21 12:13 SP TYPE: HYSTERECT OTHR DR: Dr. Guy Patiño MD Tissues: Uterus, NOS Procedures: Surgery Specimen Level V HEADER OPERATION: Lap robotic hysterectomy, bilateral salpingectomy PRE-OP DIAGNOSIS: Menorrhagia, anemia, dysmenorrhea TISSUE SUBMITTED: Uterus, bilateral fallopian tubes MICROSCOPIC DIAGNOSIS Uterus, hysterectomy: Cervix ? mild chronic inflammation. Endometrium ? secretory endometrium. Myometrium ? focal superficial adenomyosis. Right fallopian tube - no pathologic change. Left fallopian tube - no pathologic change. AM:arminda 08/03/2021 MICROSCOPIC DESCRIPTION Slides are reviewed. GROSS DESCRIPTION Received in fixative is one container labeled with the patient's name and designated uterus. The specimen consists of a uterus with attached right and left fallopian tubes and attached cervix. Two Filshie-type clips are present and intact. The uterus with cervix measures 11 x 5.3 x 4.6 cm and weighs 98 gm. The ectocervix is unremarkable. The cervical os is round in contour. The endocervical canal measures 4.8 cm in length and is grossly unremarkable. The triangular endometrial cavity measures 3.5 x 3 cm. The velvety, light xie endometrium measures up to 0.2 cm in thickness. The myometrium measures 2.6 cm in average thickness and is free of mass lesions. The fallopian tubes have an average length of 6 cm and an average diameter of 0.6 cm. Both fallopian tubes have normal fimbriated ends. No mass lesions are identified. Career Services Assistant sections are submitted as follows: 1 - anterior cervix, 2??posterior cervix, 3 & 4 - anterior uterine wall, 5 & 6 - posterior uterine wall, 7 - right fallopian tube, 8??left fallopian tube. / AM:arminda 08/02/21 TC:5 CPT: 95942
--- NOTE | 2021-08-02 07:34 | PCM.OPRPT ---
Report of Operation Date of Procedure: 08/02/21 Pre-Operative Diagnosis: Menorrhagia, Anemia Post-Operative Diagnosis: Menorrhagia, Anemia Surgery/Procedure Performed:: Robotic Assisted Vaginal Hysterectomy and Bilateral Salpingectomy Description of Surgical Findings:: 10 cm uterus with normal-appearing fallopian tubes and ovaries. Evidence of prior tubal ligation with Filshie clips. Evidence of prior C-sections with adhesions of the uterus and to the bladder. Surgeon: Quincy Campbell satellite communications engineer: Pablo Ye Type of Anesthesia: General (Endotracheal) Anesthesiologist: Nasim Ferreira Specimen's removed: Uterus and bilateral fallopian tubes Drains: Key to straight drain (removed after surgery) Estimated Blood Loss (mL): Minimal Fluids Replaced: Crystalloid Description of Procedure: Surgeon: Quincy Campbell MD, FACOG Indication: This is a 36 year old patient who has been having problems with extremely heavy menses. Dilation and curettage did not solve the issue. Conservative measures have not been helpful. The patient has been counseled regarding the risks, benefits and alternatives of this procedure including the possibility of bleeding, infection, and injury to surrounding structures such as bowel bladder and all questions were answered. She understands that if BSO is needed that she will need to be on HRT for an indefinite period of time. Procedure: Pt taken to the operating room where, after induction of general anesthesia, the patient was prepped and draped in the usual sterile fashion and placed on a non-slip Huggy-u-vac device. Trendelenburg test was satisfactory. Bladder was drained of urine with a Key catheter which was left in place. Anterior cervix grasped and cervix was dilated to about 3-4 mm. With some difficulty the cervix was dilated to about 25 Kosovan size. Uterus sounded to 10 cms. 0-Vicryl suture was placed at the 3:00 and 9:00 position of the cervix. A small Advincula Temporary Data Entry Clerk Uterine Manipulator was then placed in the uterus and attention was turned to the laparoscopic portion of the procedure. Ropivocaine 0.5% was injected approximately 2-3 cm superior to the umbilicus and an 8 mm robotic camera port was introduced directly with intraperitoneal placement confirmed with CO2 insufflation. 8 mm robotic side ports were introduced under direct visualization approximately 11 cm lateral and 2 cm inferior to the umbilical port. A 5 mm left upper quadrant port was introduced and airseal insufflation with CO2 was started. The above findings were noted. Robot was docked without difficulty and attention turned to the robotic portion of the procedure. Approximately 30 cc of Ropivicaine was used. Bilateral mesosalpinx were ligated with 35 cook bipolar coagulation to the level of the round ligament. The posterior aspect of the cervix was identified and then opened for about 1 cm using 25 watt monopolar cautery identifying the uterine manipulating device which had been placed vaginally. Bladder flap and adhesions was opened and divided to the level of the round ligaments using monopolar cautery. Progressive bites were then ligated on each side of the cervix with 35 cook bipolar cautery to the uterine arteries. The anterior vaginal mucosa was entered and cervix circumscribed with monopolar cautery. Uterus and attached tubes were removed through the vagina. Vaginal cuff was closed first with 0-Vicryl Mrali stitches placed at each angle followed by closure of the mid-cuff with 0-Monocryl V-lock suture in two layers. Pelvis was copiously irrigated with saline and the right ureter was noted to peristalse. Robot was undocked and trocars were removed with as much gas as possible. Incisions were closed with 4-0 Monocryl subcuticular sutures and incisions covered with steri-strips. The patient tolerated the procedure well and was taken to the recovery room in satisfactory condition. Sponge, instruments and needle counts were all correct. There were no apparent complications of the surgery. Ancef 3 gms IV was given prior to the procedure. Estimated Blood Loss: Minimal Specimen to Pathology: Uterus and bilateral fallopian tubes Grafts/Implants Used: None Complications None Admit VTE Documentation VTE Present on Admission: Yes VTE Mechan Device Prophylaxis: SCD's
--- NOTE | 2021-08-02 07:36 | PCM.DC ---
Discharge Instructions Diet Discharge Diet: No restrictions Activity Discharge Activity: May Shower and May Take a Tub Bath May resume sexual activity in: 6 weeks (nothing in the vagina.) Lifting Restrictions: 25 pounds for 6 weeks. Additional Activity Instructions:: Nothing in the vagina for 6 weeks please; no lifting more than 20-25 lbs for 6 weeks. Use Ibuprophen 800 mg orally every 8 hours as needed for pain. Can also add Tylenol 1000 mg every 8 hours if needed for pain. If Ibuprophen and Tylenol are not effective then use the Oxycodone but keep in mind it can cause serious constipation issues. Drink lots of water. Call if bleeding more than a pad per hour. Use the colace as constipation is a big issue after this type of surgery. Steps and walking are OK. Activity is encouraged but do not over do it !! Dressing / Incision Call your doctor if your incision/area has: Continuous Slow Oozing, Sudden Increased Bleeding, Increased Pain/ Swelling, Increased Redness and Foul Smelling Discharge Call your doctor if you observe: Fever of 101 or Higher, Inability to urinate, Inability to have a bowel movement, Using more than 1 pad per hour and - (Some vaginal bleeding may be noted for up to 4-8 weeks.) Cleanse incision/area with: - (Let the soapy water run over your incision, rinse and pat dry.) Additional Dressing/Incision Instructions:: The white strips (Steri Strips) on your incisions will fall off on their own. If they fall off and it bothers you it is okay to put Band-Aids across the incisions. Follow Up Care Please Follow Up With: Quincy Campbell MD When: Call [phone] for an appointment to be seen in 2 weeks. Test Results: Test results from this visit will be discussed in further detail at your follow-up appointment, if applicable. Discharge Plan Admission Primary Reason for Your Visit: Robotic Vaginal Hysterectomy Attending Provider: Quincy Campbell Primary Care Provider: Guy Patiño Discharge Orders/Prescriptions Prescriptions: New oxycodone 5 mg capsule 5 mg PO Q6H PRN (Reason: pain) 7 Days Qty: 10 RF: 0 docusate sodium 100 mg tablet 100 mg PO BID PRN (Reason: constipation) Qty: 60 RF: 1 No Action escitalopram oxalate 20 mg tablet 20 mg PO DAILY Qty: 90 RF: 3 permethrin 5 % cream 1 applic topical DAILY PRN (Reason: skin on hands) RF: 0 albuterol sulfate [ProAir HFA] 90 mcg/actuation HFA aerosol inhaler 1 - 2 puff inhalation Q6H PRN (Reason: shortness of breath or wheezing) Qty: 18 RF: 1 lorazepam 0.5 mg tablet 0.5 mg PO DAILY PRN (Reason: anxiety) Qty: 3 RF: 0 Referrals / Follow Up: Guy Patiño MD [Primary Care Provider] - Disposition Disposition (needs filled in before D/C Order can be placed): Home, Self Care
[2021-08-02 08:15] LABS: Bedside Glucose 94 mg/dL (70-110)
[2021-08-02] MEDS: Ropivacaine 0.5% 30 ML Vial (08:22)
[2021-08-02] MEDS: oxyCODONE 5 MG Tablet PO (11:50)
== END 2021-08-02 14:10 | disposition home or self-care (01) ==
LOC: SDC 05:43 → AC 05:44
PROVIDERS: Anesthesiology; PCP Internal Medicine; Referring Provider Obstetrics & Gynecology; Visit Provider Obstetrics & Gynecology
PROC: 0UT90ZZ Resection of Uterus, Open Approach (ICD-10-PCS; CPT 58552; principal; 2021-08-02 07:10)
DX: N92.1 Excessive and frequent menstruation with irregular cycle (principal); D64.9 Anemia, unspecified; F41.9 Anxiety disorder, unspecified; F31.9 Bipolar disorder, unspecified; Z79.899 Other long term (current) drug therapy; G47.33 Obstructive sleep apnea (adult) (pediatric); E66.9 Obesity, unspecified; M19.90 Unspecified osteoarthritis, unspecified site; J44.9 Chronic obstructive pulmonary disease, unspecified
CPT/HCPCS: 00944; 58552; S2900; 36415; 80048; 81025; 82565; 82962; 83735; 85027; 85610; 85730; 86850; 86900; 86901; 87426; 88307; 93005; C9803; J7120; A4216; J2405

== ENCOUNTER 2021-11-17 18:16 | Emergency (ER) | payer MEDICARE, MEDICAID, SELFPAY ==
[2021-11-17 18:17] VITALS: BP 113/93; PULSE 110; RESP 15; TEMP 36.1; O2SAT 98; BMI 46.3
--- NOTE | 2021-11-17 18:30 | RAD_ITS ---
STUDY: X-RAY - RIGHT FOOT CLINICAL: Female, 36 years old. PAIN TECHNIQUE: 3 view(s) of the foot. COMPARISON: None. FINDINGS: Normal talus, calcaneus, and tarsal bones. Normal visualized subtalar, talonavicular, calcaneocuboid, tarsal and tarsometatarsal articulations. Normal metatarsi. Normal metatarsophalangeal joint of the great toe. Normal tibial and fibular sesamoid bones. Normal interphalangeal joint of the great toe. Normal phalanges of the great toe. Normal second through fifth metatarsophalangeal joints. Normal interphalangeal joints and phalanges of the lesser toes. The soft tissue structures are unremarkable. Fixation hardware is noted at the ankle. RAD/Foot min 3 Views IMPRESSION: Normal intact foot. Electronically Signed: Mariano Graff MD at 19:03 EDT ,
[2021-11-17 19:41] VITALS: BP 136/88; PULSE 101; RESP 14; O2SAT 96
[2021-11-17] MEDS: Ketorolac 15 MG/ML Vial IM (21:03)
--- NOTE | 2021-11-17 23:00 | EDS_ITS ---
HPI History of Present Illness Chief Complaint: Lower Extremity Injury Narrative Narrative: 36-year-old female presenting with right Achilles pain at the attachment to the right posterior ankle. She states she stood up and felt sharp pain here. She initially had some swelling and pain and iced and elevated this. It felt improved and she tried to stand up again it and it hurt. Patient states that she has no trauma. No numbness or tingling. She has a walking boot from previous injury and she is wearing this. She does not need crutches. PFSH PFSH Medical History Anemia Anxiety Arthritis Bipolar depression manic phase Bipolar disorder Chronic cough Chronic low back pain COPD (chronic obstructive pulmonary disease) COVID-19 Edentulous Herniated disc History of brain disorder History of edema Hydocephalus Kidney stones Obesity Panic attacks Shortness of breath on exertion Smoker Wears glasses Home Medications naproxen [Naprosyn] 500 mg PO BID PRN #20 tab 11/17/21 [Rx Last Taken Unknown] Allergy/AdvReac Type Severity Reaction Status Date / Time ceftriaxone sodium Allergy Hives Verified 11/17/21 18:19 [From Rocephin] tramadol Allergy Hives Verified 11/17/21 18:19 bupropion HCl AdvReac MAKES Verified 11/17/21 18:19 [From Wellbutrin] ANXIETY WORSE Family History Grandmother Asthma Thyroid disorder Mother Asthma Thyroid disorder COPD (chronic obstructive pulmonary disease) Aunt Asthma Heart disease Hypertension Thyroid disorder Emphysema, unspecified Grandfather Asthma Diabetes Hypertension Hyperlipidemia COPD (chronic obstructive pulmonary disease) Surgical History D&C History of 3 sections History of ankle surgery History of bilateral tubal ligation History of cholecystectomy History of tonsillectomy left ankle ligament repair Social History household members: family housing: house number of children: 3 current occupational status: unemployed pets and animals: Yes Smoking Status: Current every day smoker tobacco type: cigarettes second hand exposure: Yes alcohol intake: never substance use type: does not use caffeine: No what type of physical activity do you participate in: walking frequency: daily seatbelt use: always do you feel safe at home: Yes ROS ROS ED Constitutional Constitutional ED: Denies chills, fever(s) or subjective Eyes Eyes: Denies blurry vision or change in vision ENT ENT ED: Denies rhinorrhea Cardiovascular Cardiovascular: Denies chest pain or palpitations Respiratory/Chest Respiratory/Chest: Denies cough or dyspnea Gastrointestinal Gastrointestinal: Denies abdominal pain or nausea Genitourinary Genitourinary ED: Denies dysuria or hematuria Musculoskeletal Musculoskeletal: Reports other Details: Right distal calf pain Integumentary Denies rash Neurologic Neurologic: Denies headache(s) or weakness Psychiatric Psychiatric: Denies anxiety or depression EXAM Physical Exam Const Vital Signs: 11/17/21 18:17 11/17/21 19:41 Temperature 96.9 F L Temperature Source Temporal Pulse Rate 110 H 101 H Respiratory Rate 15 14 Blood Pressure 113/93 H 136/88 H Blood Pressure Mean 99 104 Pulse Ox 98 96 Oxygen Delivery Method Room Air Room Air Positive well nourished and obese General Appearance ED: NAD Nutritional Appearance: obese HEENT normocephalic and atraumatic Eyes PERRL Resp normal respiratory effort Cardio regular rate and regular rhythm Extremity Extremity Narrative: Tenderness to palpation over right Achilles. No swelling or edema. Distal calf is slightly tender. Compartments are soft. Plantar flexion and dorsiflexion are maintained although she has pain with this. Right foot neurovascular intact brisk cap refill to all 5 toes. Neuro oriented x3 Sensorium / Orientation: alert MDM MDM MDM Narrative Medical decision making narrative: Patient having right distal calf/Achilles pain. Plantar flexion dorsiflexion maintained although painful. Patient given a shot of Toradol. She had a protocol x-ray of the right foot prior to my evaluation which on my interpretation shows no acute fracture or subluxation. I do not believe she needs further imaging. This is likely either calf or Achilles strain. She has a walking boot and does not require crutches. 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 She is counseled to use ice, elevation, NSAIDs. She can use compression as an adjunct as well. Patient discharged home in stable condition. Impression: 1. Calf strain Lab Data Attestation: I reviewed the patient's lab results. Radiography Diagnostic Testing: Clinical Impression(s) from Imaging Studies Foot X-Ray 11/17/21 18:30 IMPRESSION: Normal intact foot. Electronically Signed: Mariano Graff MD at 19:03 EDT , Discharge Plan Triage Chief Complaint: Lower Extremity Injury ED Provider: Romulo Nichols Dx/Rx/DC Orders Instructions: Understanding Achilles Tendonitis Prescriptions: New naproxen [Naprosyn] 500 mg tablet 500 mg PO BID PRN (Reason: pain) Qty: 20 RF: 0 Primary Care Provider: Guy Patiño Referrals: Guy Patiño MD [Primary Care Provider] - Kory Pacheco DPM [STAFF PHYSICIAN] - As soon as possible Disposition Disposition: Home, Self Care Discharge Date/Time: 11/17/21 21:18
== END 2021-11-17 21:18 | disposition home or self-care (01) ==
PROVIDERS: Emergency Provider Student in an Organized Health Care Education/Training Program; PCP Internal Medicine; Visit Provider Student in an Organized Health Care Education/Training Program
DX: S86.911A Strain of unspecified muscle(s) and tendon(s) at lower leg level, right leg, initial encounter (principal); F17.210 Nicotine dependence, cigarettes, uncomplicated; E66.9 Obesity, unspecified; Z86.16 Personal history of COVID-19; X58.XXXA Exposure to other specified factors, initial encounter
CPT/HCPCS: 73630; 96372; 99282

== ENCOUNTER 2022-04-12 14:49 | Emergency (ER) | payer MEDICARE, MEDICAID, SELFPAY ==
[2022-04-12 14:49] VITALS: BP 131/85; PULSE 101; RESP 20; TEMP 36.6; O2SAT 99; BMI 46.6
--- NOTE | 2022-04-12 14:53 | RAD_ITS ---
STUDY: X-RAY - RIGHT FOOT CLINICAL: Female, 37 years old. TRAUMA -- IN ED WAITING ROOM. Lateral pain following injury. TECHNIQUE: 3 view(s) of the foot. COMPARISON: Comparison is made with prior study dated 11/17/2021. FINDINGS: Normal talus, calcaneus, and tarsal bones. Evidence of prior ORIF of the distal tibia and distal fibula. Normal visualized subtalar, talonavicular, calcaneocuboid, tarsal and tarsometatarsal articulations. Normal metatarsi. Normal metatarsophalangeal joint of the great toe. Normal tibial and fibular sesamoid bones. Normal interphalangeal joint of the great toe. Normal phalanges of the great toe. Normal second through fifth metatarsophalangeal joints. Normal interphalangeal joints and phalanges of the lesser toes. The soft tissue structures are unremarkable. RAD/Foot min 3 Views IMPRESSION: No acute abnormality is seen. Electronically Signed: Ej Sam MD at 15:27 EDT ,
--- NOTE | 2022-04-12 15:18 | EDS_ITS ---
HPI History of Present Illness Chief Complaint: Lower Extremity Injury Informant: patient Onset/Context/Timing Onset: Today Current Severity: Moderate Maximum Severity: Moderate Narrative Narrative: Patient present secondary to right lower extremity injury. She has a history of prior right femur and ankle fractures. She has hardware in place. This morning she was walking at a local store when she states her foot hyperflexed and injured her foot and ankle. She went home and propped her foot up with ice and heat. In spite of this she has continued pain and swelling. She has not yet taken anything for pain. [facility] Medical History Anemia Anxiety Arthritis Bipolar depression manic phase Bipolar disorder Chronic cough Chronic low back pain COPD (chronic obstructive pulmonary disease) COVID-19 Edentulous Herniated disc History of brain disorder History of edema Hydocephalus Kidney stones Obesity Panic attacks Shortness of breath on exertion Smoker Wears glasses Home Medications naproxen 500 mg tablet (Naprosyn) 500 mg PO BID PRN pain #20 tabs 11/17/21 [Rx Last Taken Unknown] benzonatate 200 mg capsule 200 mg PO TID PRN cough #30 caps 12/03/21 [Rx Last Taken Unknown] fluticasone propionate 50 mcg/actuation nasal spray,suspension 1 - 2 spray intranasal BID PRN allergies, congestion #16 grams 12/03/21 [Rx Last Taken Unknown] naproxen 500 mg tablet (Naprosyn) 500 mg PO BID PRN pain #20 tabs 04/12/22 [Rx Last Taken Unknown] Allergy/AdvReac Type Severity Reaction Status Date / Time ceftriaxone sodium Allergy Hives Verified 04/12/22 14:53 [From Rocephin] tramadol Allergy Hives Verified 04/12/22 14:53 bupropion HCl AdvReac MAKES Verified 04/12/22 14:53 [From Wellbutrin] ANXIETY WORSE Family History Grandmother Asthma Thyroid disorder Mother Asthma Thyroid disorder COPD (chronic obstructive pulmonary disease) Aunt Asthma Heart disease Hypertension Thyroid disorder Emphysema, unspecified Grandfather Asthma Diabetes Hypertension Hyperlipidemia COPD (chronic obstructive pulmonary disease) Surgical History D&C History of 3 sections History of ankle surgery History of bilateral tubal ligation History of cholecystectomy History of tonsillectomy left ankle ligament repair Social History household members: family housing: house number of children: 3 current occupational status: unemployed pets and animals: Yes Smoking Status: Current every day smoker tobacco type: cigarettes second hand exposure: Yes alcohol intake: never substance use type: does not use caffeine: No what type of physical activity do you participate in: walking frequency: daily seatbelt use: always do you feel safe at home: Yes ROS ROS ED Constitutional Constitutional ED: Denies chills or fever(s) Eyes Eyes: Denies change in vision or discharge from eye(s) ENT ENT ED: Denies discharge from eye(s), rhinorrhea or sore throat Cardiovascular Cardiovascular: Denies chest pain or palpitations Respiratory/Chest Respiratory/Chest: Denies cough or dyspnea Gastrointestinal Gastrointestinal: Denies abdominal pain, diarrhea, nausea or vomiting Genitourinary Genitourinary ED: Denies difficulty urinating or dysuria Musculoskeletal Musculoskeletal: Reports extremity pain; Denies back pain Integumentary Denies Abrasions or rash Neurologic Neurologic: Denies headache(s) or weakness Psychiatric Psychiatric: Denies anxiety or depression Allergic/Immunologic Allergic/Immunologic ED: Denies lip swelling or urticaria EXAM Physical Exam Const Vital Signs: 04/12/22 14:49 Temperature 97.8 F Temperature Source Temporal Pulse Rate 101 H Respiratory Rate 20 H Blood Pressure 131/85 H Blood Pressure Mean 100 Pulse Ox 99 Oxygen Delivery Method Room Air Positive well nourished and well developed General Appearance ED: well developed HEENT Reports normocephalic and head/scalp atraumatic Eyes PERRL and EOMs intact bilaterally Neck supple Chest Wall inspection of chest normal and palpation of chest normal Resp normal respiratory effort and clear to auscultation bilaterally Cardio regular rate and regular rhythm GI normal to inspection, nondistended, normoactive bowel sounds Palpation: soft Extremity Extremity Narrative: Mild edema noted to the lower portion of the right lower leg and ankle. Well- healed incisions both medial and lateral malleoli noted. Mild tenderness over the foot itself with increased tenderness over the lateral malleolus and distal fibula. No tenderness at the knee joint itself. No tenderness at the right hip. Strong distal pulses are noted with good cap refill and sensation. She is able to plantarflex and extend her ankle. Neuro oriented x3 and no sensory deficits noted Sensorium / Orientation: alert Psych mental status grossly normal Skin no rashes or lesions noted MDM MDM MDM Narrative Medical decision making narrative: Patient is given Naprosyn for pain. Right tib-fib and foot x-rays obtained. Radiography Diagnostic Testing: Clinical Impression(s) from Imaging Studies Foot X-Ray 04/12/22 14:53 IMPRESSION: No acute abnormality is seen. Electronically Signed: Ej Sam MD at 15:27 EDT , Tibia/Fibula X-Ray 04/12/22 15:28 IMPRESSION: No acute abnormality is seen. Electronically Signed: Ej Sam MD at 15:50 EDT , Treatment and Re-Evaluation Narrative: Right hip and foot x-rays per mitral rotation reveal no evidence of acute fracture. Postsurgical changes are noted. Test results discussed with patient. She has a walking boot at home that she can use. I will write her work restrictions and a prescription for naproxen. 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 Discharge Plan Triage Chief Complaint: Lower Extremity Injury ED Provider: Yina Owen Dx/Rx/DC Orders Clinical Impression: Right ankle sprain Instructions: ED Ankle Sprain (Adult) Prescriptions: New naproxen [Naprosyn] 500 mg tablet 500 mg PO BID PRN (Reason: pain) Qty: 20 0RF No Action benzonatate 200 mg capsule 200 mg PO TID PRN (Reason: cough) Qty: 30 1RF fluticasone propionate 50 mcg/actuation spray,suspension 1 - 2 spray intranasal BID PRN (Reason: allergies, congestion) Qty: 16 3RF Rx Instructions: administer into each nostril; 2 sprays in each nostril for the first week naproxen [Naprosyn] 500 mg tablet 500 mg PO BID PRN (Reason: pain) Qty: 20 0RF Stand Alone Forms: ED Work / School Excuse Primary Care Provider: Guy Patiño Referrals: Guy Patiño MD [Primary Care Provider] - Kory Pacheco DPM [Med Staff - Active Staff] - 1 Week Disposition Disposition: Home, Self Care
[2022-04-12] MEDS: Naproxen 500 MG Tablet PO (15:27)
--- NOTE | 2022-04-12 15:28 | RAD_ITS ---
STUDY: X-RAY - RIGHT TIBIA AND FIBULA REASON FOR EXAM: Female, 37 years old. Injury TECHNIQUE: 3 view(s) of the tibia and fibula were obtained. COMPARISON: None. FINDINGS: Normal visualized tibia. Healed fracture of the proximal tibia. Prior fusion of the distal fibula and distal tibia. The soft tissue structures are unremarkable. RAD/Tibia & Fibula 2 Views IMPRESSION: No acute abnormality is seen. Electronically Signed: Ej Sam MD at 15:50 EDT ,
== END 2022-04-12 16:21 | disposition home or self-care (01) ==
PROVIDERS: Emergency Provider Emergency Medicine; PCP Internal Medicine; Visit Provider Emergency Medicine
DX: S93.401A Sprain of unspecified ligament of right ankle, initial encounter (principal); Z86.16 Personal history of COVID-19; X58.XXXA Exposure to other specified factors, initial encounter; Y92.512 Supermarket, store or market as the place of occurrence of the external cause
CPT/HCPCS: 73590; 73630; 99282

== ENCOUNTER → 2022-04-20 | Outpatient (CLI) | payer MEDICARE, MEDICAID, SELFPAY | END | disposition home or self-care (01) | PROVIDERS: PCP Internal Medicine; Referring Provider Nurse Practitioner Family; Visit Provider Nurse Practitioner Family | DX: U07.1 COVID-19 (principal) | CPT/HCPCS: 87635; U0003; U0005 ==

== ENCOUNTER 2022-05-16 09:59 | Outpatient (RCR) | payer MEDICARE, MEDICAID, SELFPAY ==
--- NOTE | 2022-05-16 10:40 | HP.PTEVAL_ITS ---
Patient's Visit Information NEGRITO BUSTAMANTE is a 37 year old F referred to Physical Therapy by Dr. Osmar Calzada MD with a diagnosis of Instability of R PF joint. Date of Evaluation: 05/16/22 Physical Therapist: ROMINA Rahman - Visit Plan Frequency: 2x /Week Duration: 2 Months Plan: 2X/ week for 8 weeks for AT for R knee AROM, stretching, R knee and hip strengthening, gait training, core stability with HEP. 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 She hurt here knee because her ankle folded up and fell on her R knee and the orthopedic said that she popped her knee cap out of place and then it went back on its own. This was about 6 weeks ago and she had a knee brace on. She is supposed to have her knee brace on until she sees her Dr in a week and half. She is having trouble with sitting with long periods of time and then getting up cause her knee feels like it will give out and she has pain in it. Stairs: she has 6 steps to get into house and has 2 hand rails and goes up 2 feet to a stair and it is difficulty for her. Sit to stand or hard to get off her bed is painful and difficult. Sometimes her knee will wake her up in pain at night. - Pain R knee pain Pain Intensity (Out of 10): 6 - Objective Gait: walks with slow wider LEXIE gait with decrease stance time on the R LE. Pt has increase pain with turning over on a mat table and she struggles to sit to stand and has to stand a minute to make sure she has the ability to weight bear through her R leg before taking a step onto that leg. LE MMT: R hip flex 8.4# and L hip flex 7.7#. R knee ext 10.7# and L knee ext 16.3#. R knee flex 7# and L knee flex 10.4#. R hip abd 8.5# and L hip abd 11.7#. Bridge 1/4 normal ROM with increase in pain in the R knee. R knee AROM -6 degrees from full extension and 110 degrees knee flex (increase pain at end range). L knee AROM 0-121 degrees - Balance/Special Test Scores Lower Extremity Functional Score: 21 - Goals Goal 1:: I HEP Goal Time Frame: 6-8 Weeks Goal 2:: Increase R LE strength (at the time of the eval: LE MMT: R hip flex 8.4# and L hip flex 7.7#. R knee ext 10.7# and L knee ext 16.3#. R knee flex 7# and L knee flex 10.4#. R hip abd 8.5# and L hip abd 11.7#) Goal Time Frame: 6-8 Weeks Goal 3:: Be able to increase R knee AROM 0-120 degrees R knee flexion Goal Time Frame: 6-8 Weeks Goal 4:: Be able to go up and down the steps with 1 hand rail and recip if able Goal Time Frame: 6-8 Weeks - Rehabilitation Potential Rehabilitation Potential: Fair - Anticipated Interventions Patient/Client Instruction: Educate patient on: Condition, Plan of Care For the Purpose of:: To decrease pain, To decrease swelling/inflammation, To increase ROM, To improve nutrient delivery to tissue, To improve muscle performance and motor function, To improve ability to perform ADL's, To increase tolerance to activity/condition/position, To improve performance and independence with ADL's, To improve gait and locomotor functions, To improve health of tissue, To decrease soft tissue restriction, To increase flexibilit y/ROM Therapeutic Exercise to Include: Strength training, Flexibilty training, Gait and locomotor training, Neuromotor development, In an aquatic setting, Active ROM, Dynamic Lumbar Stabilization For the Purpose of:: To decrease pain, To decrease swelling/inflammation, To increase ROM, To improve nutrient delivery to tissue, To improve muscle per formance and motor function, To improve ability to perform ADL's, To increase tolerance to activity/condition/position, To improve performance and independence with ADL's, To improve ability of physical actions for home/community/work/leisure, To improve health of tissue, To decrease soft tissue restriction, To increase flexibility/ROM Functional Training to Include: Gait training For the Purpose of:: To improve gait and locomotor functions Thank you for the opportunity to evaluate your patient. For Medicare and Medicare HMO plans, please review the plan of care and approve it. It will need to be FAXED BACK to us at [phone] for Medicare purposes. For Medicare only, by signing this I certify the plan of care. Please let me know if there are questions or concerns regarding this plan of care. Physician Signature: Date:
== END 2022-05-16 19:00 | disposition home or self-care (01) ==
LOC: PT 09:59
PROVIDERS: PCP Internal Medicine; Referring Provider Orthopaedic Surgery Sports Medicine; Visit Provider Orthopaedic Surgery Sports Medicine
DX: M25.361 Other instability, right knee (principal)
CPT/HCPCS: 97161

== ENCOUNTER 2022-07-29 07:03 | Emergency (ER) | payer MEDICARE, MEDICAID, SELFPAY ==
[2022-07-29 07:03] VITALS: BP 138/88; PULSE 103; RESP 16; TEMP 36.4; O2SAT 98; BMI 46.2
[2022-07-29 07:08] VITALS: BP 138/88; PULSE 103; RESP 16; TEMP 36.4; O2SAT 98
[2022-07-29 07:10] VITALS: O2SAT 98
--- NOTE | 2022-07-29 07:11 | RAD_ITS ---
EXAM: XR CHEST, 2 VIEWS CLINICAL INDICATION: cough, right chest pain TECHNIQUE: Frontal and lateral views of the chest. This report was created using [employer] report generation technology. COMPARISON: Previous chest radiographs of 10/25/2020 and 10/05/2019. FINDINGS: LUNGS AND PLEURAL SPACES: Lungs are not hyperinflated. Mild peribronchial cuffing is present indicating bronchial inflammation/bronchitis. Lateral view shows development of minimal patchy density in the lower retrosternal region, suspicious for pneumonia, difficult to localize on the frontal view, but this may lie within the retrocardiac portion of left lower lobe. No pneumothorax or pleural effusion. HEART: Unremarkable. Cardiac silhouette not enlarged. Normal pulmonary vasculature. MEDIASTINUM: Central airways and mediastinal contour are unremarkable. BONES/JOINTS: Minimal anterior wedging of 2 lower thoracic vertebral bodies, chronic. No acute osseous abnormality. SOFT TISSUES: Large body habitus. RAD/Chest PA and Lateral IMPRESSION: Mild peribronchial cuffing indicating bronchial wall inflammation/bronchitis. Findings suspicious for minimal retrosternal pneumonia as noted on the lateral view. Electronically Signed: Blayne Orta MD at 7:39 EST ,
--- NOTE | 2022-07-29 07:12 | ED.VIS.DYS ---
HPI History of Present Illness Chief Complaint: Cough Detail of Chief Complaint: Cough and right chest pain Informant: patient Narrative Narrative: Patient presents to the emergency department with complaint of a cough that she has had for over a week and a half. Patient states that she was seen in urgent care a week and a half ago and had negative COVID and flu testing and was told she may have RSV. Patient was started on amoxicillin and steroids. Patient initially had fever up to 103 but has not had a fever for several days. Cough is still there but dry. Starting this morning around 2 AM she started having right-sided chest pain that goes to her shoulder blade and down her right arm. Patient went to work at 4 AM but then came into the ER to get evaluated. Pain in her chest worse with cough and deep breath. PFSH [facility] Medical History (Updated 07/29/22 @ 08:[address] Jin Cash, ) Anemia Anxiety Arthritis Bipolar depression manic phase Bipolar disorder Chronic cough Chronic low back pain Contact with and (suspected) exposure to other viral communicable diseases COPD (chronic obstructive pulmonary disease) COVID-19 Edentulous Herniated disc History of brain disorder History of edema Hydocephalus Instability of right patellofemoral joint Kidney stones Obesity Panic attacks Shortness of breath on exertion Smoker Wears glasses Home Medications acetaminophen 500 mg tablet (Tylenol Extra Strength) 500 mg PO Q6H PRN Fever 04/28/22 [History Last Taken Unknown] ibuprofen 200 mg capsule 600 mg PO TID PRN Pain 04/28/22 [History Last Taken Unknown] hydroxyzine HCl 10 mg tablet 10 mg PO TID PRN anxiety #90 tabs 06/08/22 [Rx Last Taken Unknown] benzonatate 200 mg capsule 200 mg PO TID PRN cough #20 caps 07/14/22 [Rx Last Taken Unknown] albuterol sulfate 90 mcg/actuation aerosol inhaler (Ventolin HFA) 2 puff inhalation Q6H PRN shortness of breath or wheezing #8.5 grams 07/15/22 [Rx Last Taken Unknown] codeine 10 mg-guaifenesin 100 mg/5 mL oral liquid 5 ml PO Q6H PRN cough #120 mL 07/15/22 [Rx Last Taken Unknown] ondansetron 4 mg disintegrating tablet 4 mg PO Q8H PRN nausea and vomiting #30 tabs 07/15/22 [Rx Last Taken Unknown] benzonatate 200 mg capsule 200 mg PO TID PRN cough #20 caps 07/29/22 [Rx Last Taken Unknown] hydrocodone-acetaminophen 5-325mg 5mg-325mg 1 tab PO Q4H PRN PRN Pain 2 days #10 TABLETS 07/29/22 [Rx Last Taken Unknown] levofloxacin 750 mg tablet 750 mg PO DAILY #6 tabs 07/29/22 [Rx Last Taken Unknown] Allergy/AdvReac Type Severity Reaction Status Date / Time ceftriaxone sodium Allergy Hives Verified 07/29/22 07:05 [From Rocephin] tramadol Allergy Hives Verified 07/29/22 07:05 bupropion HCl AdvReac MAKES Verified 07/29/22 07:05 [From Wellbutrin] ANXIETY WORSE Family History Grandmother Asthma Thyroid disorder Mother Asthma Thyroid disorder COPD (chronic obstructive pulmonary disease) Aunt Asthma Heart disease Hypertension Thyroid disorder Emphysema, unspecified Grandfather Asthma Diabetes Hypertension Hyperlipidemia COPD (chronic obstructive pulmonary disease) Surgical History D&C History of 3 sections History of ankle surgery History of bilateral tubal ligation History of cholecystectomy History of tonsillectomy left ankle ligament repair Social History household members: family housing: house number of children: 3 current occupational status: unemployed pets and animals: Yes Smoking Status: Current every day smoker tobacco type: cigarettes second hand exposure: Yes alcohol intake: never substance use type: does not use caffeine: No what type of physical activity do you participate in: walking frequency: daily seatbelt use: always do you feel safe at home: Yes ROS ROS ED Review of Systems ROS Unobtainable: other Constitutional Constitutional ED: Reports lethargy; Denies chills, fever(s), sweats or weight loss Eyes Eyes: Denies blurry vision, change in vision or diplopia ENT ENT ED: Denies rhinorrhea or sore throat Cardiovascular Cardiovascular: Reports chest pain; Denies orthopnea or racing heartbeat Respiratory/Chest Respiratory/Chest: Reports cough and dyspnea; Denies dyspnea on exertion, orthopnea or sputum Gastrointestinal Gastrointestinal: Denies abdominal pain, diarrhea, nausea or vomiting Genitourinary Genitourinary ED: Denies dysuria, hematuria or urinary frequency Musculoskeletal Musculoskeletal: Denies arthralgias, back pain, myalgias or neck pain Integumentary Denies abscess, Abrasions or rash Neurologic Neurologic: Denies headache(s) or weakness Psychiatric Psychiatric: Denies anxiety, depression or suicidal thoughts Endocrine Endocrinology: Denies polydipsia, polyphagia or polyuria Hematologic/Lymphatic Hematologic/Lymphatic: Denies easy bleeding, easy bruising or lymphadenopathy Allergic/Immunologic Allergic/Immunologic ED: Denies mouth swelling, tongue swelling or urticaria EXAM Physical Exam Const Vital Signs: 07/29/22 07:03 07/29/22 07:08 07/29/22 07:10 Temperature 97.6 F L 97.6 F L Temperature Source Temporal Temporal Pulse Rate 103 H 103 H Respiratory Rate 16 16 Respiratory Effort Short of Breath Respiratory Depth Normal Respiratory Pattern Normal Blood Pressure 138/88 H 138/88 H Blood Pressure Mean 104 104 Pulse Ox 98 98 Oxygen Delivery Method Room Air Room Air Room Air Positive well nourished and well developed General Appearance ED: well developed and NAD HEENT Reports TM's clear and moist mucous membranes normocephalic and atraumatic; Negative for trauma or tenderness Tympanic Membrane ED: Yes TM's clear Eyes PERRL and EOMs intact bilaterally General Eye ED: Negative for pale conjunctiva or scleral icterus Neck no lymphadenopathy, supple and no JVD General: Negative for tenderness Chest Wall inspection of chest normal; Negative for palpation of chest normal Chest Narrative: Tender to palpation over the right anterior chest wall that seems to reproduce her pain. Chest: tenderness Resp normal respiratory effort and clear to auscultation bilaterally Effort and Inspection: Negative for respiratory distress or pain with movement Auscultation: Negative for rhonchi, wheezes or diminished lung sounds Cardio regular rate, regular rhythm, S1 normal heart sound, S2 normal heart sound and no murmurs Peripheral Pulses: pulses 2+ throughout GI normal to inspection, nondistended, normoactive bowel sounds, soft to palpation, non-tender, non-distended and no masses Back/Spine no CVA tenderness and no thoracic nor lumbar tenderness Extremity normal to inspection General Extremety ED: Negative for edema General Extremity: Negative for edema Neuro oriented x3, CN's II-XII intact bilaterally, no sensory deficits noted and gait normal Sensorium / Orientation: awake, alert, oriented to person, oriented to place and oriented to time Motor Exam: strength 5/5 throughout and strength abnormal Psych mental status grossly normal Skin no rashes or lesions noted and no wounds MDM MDM MDM Narrative Medical decision making narrative: Patient with stable vital signs. She is not hypoxic. Chest x-ray obtained showed some peribronchial cuffing and then a possible retrosternal pneumonia. Patient was started on Levaquin. I will treat her with Tessalon Perles and a few Rainier for severe pain. I feel her chest pains are musculoskeletal. Patient advised to follow-up with her primary care physician 5 to 7 days. She is to return if increasing shortness of breath or condition should worsen anyway. Lab Data Attestation: I reviewed the patient's lab results. Radiography Chest X-Ray - ED: 1 View Diagnostic Testing: Clinical Impression(s) from Imaging Studies Chest X-Ray 07/29/22 07:11 IMPRESSION: Mild peribronchial cuffing indicating bronchial wall inflammation/bronchitis. Findings suspicious for minimal retrosternal pneumonia as noted on the lateral view. Electronically Signed: Blayne Orta MD at 7:39 EST , 1 view chest x-ray obtained interpreted by myself as no acute disease process initially. Radiology felt there might be a minimal retrosternal pneumonia noted and some peribronchial cuffing/bronchitis. Discharge Plan Triage Chief Complaint: Cough ED Provider: Jin Cash Dx/Rx/DC Orders Clinical Impression: Pneumonia, Chest wall pain Instructions: ED Chest Wall Pain, Costochondritis, ED Pneumonia (Adult) Prescriptions: New levofloxacin 750 mg tablet 750 mg PO DAILY Qty: 6 0RF benzonatate 200 mg capsule 200 mg PO TID PRN (Reason: cough) Qty: 20 0RF hydrocodone-acetaminophen [hydrocodone-acetaminophen] 5-325 mg tablet 1 tab PO Q4H PRN PRN (Reason: Pain) 2 Days Qty: 10 0RF No Action acetaminophen [Tylenol Extra Strength] 500 mg tablet 500 mg PO Q6H PRN (Reason: Fever) ibuprofen 200 mg capsule 600 mg PO TID PRN (Reason: Pain) benzonatate 200 mg capsule 200 mg PO TID PRN (Reason: cough) Qty: 20 0RF codeine-guaifenesin 10-100 mg/5 mL liquid 5 ml PO Q6H PRN (Reason: cough) Qty: 120 0RF albuterol sulfate [Ventolin HFA] 90 mcg/actuation HFA aerosol inhaler 2 puff inhalation Q6H PRN (Reason: shortness of breath or wheezing) Qty: 8.5 1RF ondansetron 4 mg tablet,disintegrating 4 mg PO Q8H PRN (Reason: nausea and vomiting) Qty: 30 0RF hydroxyzine HCl 10 mg tablet 10 mg PO TID PRN (Reason: anxiety) Qty: 90 0RF Primary Care Provider: Guy Patiño Referrals: Guy Patiño MD [Primary Care Provider] - 5-7 Days Disposition Disposition: Home, Self Care
[2022-07-29] MEDS: levoFLOXacin 750 MG Tablet PO (08:20)
== END 2022-07-29 08:22 | disposition home or self-care (01) ==
PROVIDERS: Emergency Provider Emergency Medicine; PCP Internal Medicine; Visit Provider Emergency Medicine
DX: J18.9 Pneumonia, unspecified organism (principal); R07.89 Other chest pain; F17.210 Nicotine dependence, cigarettes, uncomplicated; Z79.899 Other long term (current) drug therapy; E66.9 Obesity, unspecified
CPT/HCPCS: 71046; 99283

== ENCOUNTER 2022-08-10 19:50 | Emergency (ER) | payer MEDICARE, MEDICAID, SELFPAY ==
[2022-08-10 19:53] VITALS: BP 131/95; PULSE 99; RESP 18; TEMP 36.4; O2SAT 98; BMI 45.9
[2022-08-10 20:20] LABS: Mucous, Urine 0 SEEN /hpf (<or=2+); Red Blood Cells-Urine 0 SEEN /hpf (0-5)
[2022-08-10 20:21] LABS: Color, Urine Yellow (Yellow); Glucose, Dipstick Normal (Normal); Ketone-Dipstick Negative (Negative); Leukocyte Esterase-Dipstick 500 /ul (Negative); Nitrite-Dipstick Negative (Negative); Occult Blood-Urine Negative /ul (Negative); Protein-Dipstick Negative (Negative); Specific Gravity, Urine 1.015 (1.002-1.030); Urine Bilirubin Dipstick Negative (Negative); Urine Clarity Sl. Cloudy (Clear); Urine Urobilinogen Normal (Normal)
[2022-08-10 20:29] LABS: Squamous Epithelial Cells - UA 5-10 SEEN /hpf (5-10)
[2022-08-10 20:30] LABS: Bacteria RARE /hpf (None Seen); White Blood Cells 5-10 SEEN /hpf (0-5)
[2022-08-10 20:40] LABS: Absolute Lymphocyte Count 3.23 X10^3/uL (0.83-4.51); Absolute Neutrophil Count 8.6 X10^3/uL (2.0-7.7); Basophil# 0.06 X10^3/uL; Basophil% 0.4 % (0-1); Eosinophil# 0.57 X10^3/uL; Eosinophils% 4.2 % (0-5); Hematocrit 39.3 % (37-47); Hemoglobin 12.3 g/dL (12.0-15.0); Lymphocyte # 3.23 X10^3/ul (0.83-4.51); Lymphocyte % 24.1 % (19-41); Mean Corp Hgb Conc 31.3 g/dL (32-36); Mean Corpuscular Volume 76.6 fL (81-99); Mean Platelet Vol. 9.6 fl (6.2-12.0); Monocyte# 0.91 X10^3/uL; Monocyte% 6.8 % (0-10); NRBC Flagged by Analyzer 0 % (0-5); Neutrophil # 8.59 X10^3/uL (2.7-7.7); Neutrophil % 64.1 % (47-70); POSITIVE MORPHOLOGY YES; Platelet Count 350 K/mm3 (150-450); RBC Distribution Width CV 20.4 % (11.6-14.6); RBC Distribution Width SD 55.1 fl (35.1-43.9); Red Blood Count 5.13 M/mm3 (4.2-5.4); White Blood Count 13.4 K/mm3 (4.4-11.0)
[2022-08-10 20:43] LABS: Differential Indicated SCAN CRITERIA MET
[2022-08-10 20:57] LABS: Anion Gap 5 (5-15); BUN 9 mg/dL (7-18); BUN/Creat Ratio 16.3 RATIO (10-20); Calcium,Total 9.2 mg/dL (8.5-10.1); Chloride 105 mmol/L (98-107); Creatinine, Serum 0.55 mg/dL (0.55-1.02); EST Glomerular Filtration Rate 133 mL/min (>60); Est Glom Filt Rate - Afr Amer 161 mL/min (>60); Estimated Creatinine Clearance 154.38 ml/min; Glucose 95 mg/dL (74-106); Sodium Level 139 mmol/L (136-145)
[2022-08-10 21:02] LABS: Anisocytosis 2+; Differential Comment SCANNED; Microcytosis 1+; Polychromasia RARE
--- NOTE | 2022-08-10 22:10 | CT_ITS ---
INDICATION: Pain EXAMINATION: CT ABDOMEN AND PELVIS WITH CONTRAST - CT Abdomen And Pelvis W/ Contrast Injection TECHNIQUE: Helically acquired images were obtained of the abdomen and pelvis following IV contrast. A radiation dose optimization technique was used for this scan. IV Contrast dosage and agent: 100 cc [id number] Oral contrast: None. COMPARISON: 02/02/2018 FINDINGS: LOWER CHEST: Lung bases are clear. Small pericardial effusion LIVER: Homogeneous. No focal mass. GALLBLADDER AND BILIARY TREE: No calcified gallstones. No gallbladder distension or wall edema. No intra- or extrahepatic biliary ductal dilation. PANCREAS: No focal cystic or solid mass. SPLEEN: Normal size without focal cystic or solid mass. ADRENAL GLANDS: No nodules. KIDNEYS AND URETERS: Normal renal size and position. No hydronephrosis. PERITONEUM: No ascites or free air. No other fluid collection. BOWEL: No evidence of acute appendicitis. No stomach or bowel distension. No focal inflammatory change. LYMPH NODES: No enlarged mesenteric or retroperitoneal lymph nodes. VESSELS: Aorta is non-dilated. URINARY BLADDER: Unremarkable. REPRODUCTIVE ORGANS: Interval hysterectomy. ABDOMINAL WALL: Small fat-containing supraumbilical hernia. BONES: Normal thoracolumbar vertebral alignment. CT/Abdomen/Pelvis W IV Cont ONLY IMPRESSION: Small pericardial effusion. No acute abnormal finding in the abdomen or pelvis. Electronically Signed: Talat Childers MD at 22:48 EST ,
--- NOTE | 2022-08-10 22:11 | EDS_ITS ---
HPI HPI - GI History of Present Illness Chief Complaint: Abd Pain Narrative Narrative: 37-year-old female past medical history of cholecystectomy and partial hysterectomy presents with abdominal pain that she states began this morning. She complains of sharp, stabbing abdominal pain. It was mainly in the epigastrium when she coughed. She was in [facility] at the time taking her sister home. Since then, it has progressed downward to the periumbilical area. She complains of diffuse pain all over her abdomen. She is nauseated but has not vomited. She denies any fevers or chills. No diarrhea. Last normal bowel movement was this morning. No true exacerbating or alleviating factors but states that while her abdominal pain is moved to the bilateral lower quadrants, it is relentless and has not stopped. PFSH PFS Medical History Anemia Anxiety Arthritis Bipolar depression manic phase Bipolar disorder Chronic cough Chronic low back pain Contact with and (suspected) exposure to other viral communicable diseases COPD (chronic obstructive pulmonary disease) COVID-19 Edentulous Herniated disc History of brain disorder History of edema Hydocephalus Instability of right patellofemoral joint Kidney stones Obesity Panic attacks Shortness of breath on exertion Smoker Wears glasses Home Medications acetaminophen 500 mg tablet (Tylenol Extra Strength) 500 mg PO Q6H PRN Fever 04/28/22 [History Last Taken Unknown] ibuprofen 200 mg capsule 600 mg PO TID PRN Pain 04/28/22 [History Last Taken Unknown] hydroxyzine HCl 10 mg tablet 10 mg PO TID PRN anxiety #90 tabs 06/08/22 [Rx Last Taken Unknown] benzonatate 200 mg capsule 200 mg PO TID PRN cough #20 caps 07/14/22 [Rx Last Taken Unknown] albuterol sulfate 90 mcg/actuation aerosol inhaler (Ventolin HFA) 2 puff inhalation Q6H PRN shortness of breath or wheezing #8.5 grams 07/15/22 [Rx Last Taken Unknown] codeine 10 mg-guaifenesin 100 mg/5 mL oral liquid 5 ml PO Q6H PRN cough #120 mL 07/15/22 [Rx Last Taken Unknown] ondansetron 4 mg disintegrating tablet 4 mg PO Q8H PRN nausea and vomiting #30 tabs 07/15/22 [Rx Last Taken Unknown] benzonatate 200 mg capsule 200 mg PO TID PRN cough #20 caps 07/29/22 [Rx Last Taken Unknown] hydrocodone-acetaminophen 5-325mg 5mg-325mg 1 tab PO Q4H PRN PRN Pain 2 days #10 TABLETS 07/29/22 [Rx Last Taken Unknown] levofloxacin 750 mg tablet 750 mg PO DAILY #6 tabs 07/29/22 [Rx Last Taken Unknown] dicyclomine 20 mg tablet 20 mg PO TID PRN abdominal pain #20 tabs 08/10/22 [Rx L ast Taken Unknown] ondansetron 4 mg disintegrating tablet 4 mg PO Q6H PRN nausea and vomiting #15 tabs 08/10/22 [Rx Last Taken Unknown] Allergy/AdvReac Type Severity Reaction Status Date / Time ceftriaxone sodium Allergy Hives Verified 08/10/22 19:55 [From Rocephin] tramadol Allergy Hives Verified 08/10/22 19:55 bupropion HCl AdvReac MAKES Verified 08/10/22 19:55 [From Wellbutrin] ANXIETY WORSE Family History Grandmother Asthma Thyroid disorder Mother Asthma Thyroid disorder COPD (chronic obstructive pulmonary disease) Aunt Asthma Heart disease Hypertension Thyroid disorder Emphysema, unspecified Grandfather Asthma Diabetes Hypertension Hyperlipidemia COPD (chronic obstructive pulmonary disease) Surgical History D&C History of 3 sections History of ankle surgery History of bilateral tubal ligation History of cholecystectomy History of tonsillectomy left ankle ligament repair Social History household members: family housing: house number of children: 3 current occupational status: unemployed pets and animals: Yes Smoking Status: Current every day smoker tobacco type: cigarettes second hand exposure: Yes alcohol intake: never substance use type: does not use caffeine: No what type of physical activity do you participate in: walking frequency: daily seatbelt use: always do you feel safe at home: Yes ROS ROS ED ROS Narrative Constitutional: No fever, no chills. HEENT: No sore throat. No neck pain. No loss of vision. No rhinorrhea. Cardiovascular: No chest pain. No palpitations. No pedal edema. Respiratory: No cough, no shortness of breath. Abdominal: Diffuse abdominal pain. Described as sharp, stabbing. Positive nausea. No vomiting. No diarrhea Genitourinary: No dysuria. No hematuria. Musculoskeletal: No myalgias. No arthralgias. Neurologic: No headaches. No dizziness. No lightheadedness. Skin: No rash. No change in color. Psychiatric: No depression. No anxiety. EXAM Physical Exam Narrative Exam Narrative: Afebrile. Vital signs noted. HEENT: Normocephalic. Atraumatic. PERRL, EOMI. Neck soft and supple. No point tenderness or step off. Cardiovascular: Regular rate and rhythm. No murmurs, rubs, or gallops appreciated. Respiratory: No tachypnea. Lungs clear to auscultation bilaterally. Gastrointestinal: Abdomen soft, obese, with diffuse tenderness to palpation with normoactive bowel sounds. No rebound or guarding. Neurological: Awake. Alert. Nonfocal, nonlateralizing. Skin: No rash. Normal color. No pallor. Musculoskeletal: No pedal edema. Full range of motion extremities. Const Vital Signs: 08/10/22 19:53 08/10/22 22:49 Temperature 97.6 F L Temperature Source Temporal Pulse Rate 99 Respiratory Rate 18 Blood Pressure 131/95 H Blood Pressure Mean 107 Pulse Ox 98 99 Oxygen Delivery Method Room Air Room Air MDM MDM MDM Narrative Medical decision making narrative: Nursing protocol laboratories were obtained. She has slightly elevated white count at 13.4, normal hemoglobin of 12.3, hematocrit 39.3. Platelet count of 350. BMP is grossly unremarkable. Urinalysis shows 5-10 WBCs but there are 5- 10 squamous epithelial cells, I do think that this is a contaminated specimen. I do not feel antibiotics are indicated. Given her diffuse abdominal pain, CT imaging was obtained with IV contrast. CT imaging shows no acute process. She had been administered morphine and ondansetron for analgesia here. At this point in time, given her negative work- up, I feel she can be discharged safely home with follow-up to her primary care provider. She was written prescriptions for Bentyl and ondansetron. Return instructions to the emergency department were reviewed. Disposition is discharged home in stable condition. Lab Data Attestation: I reviewed the patient's lab results. Labs: Laboratory Results - last 24 hr 08/10/22 08/10/22 08/10/22 20:10 20:20 20:20 WBC 13.4 H RBC 5.13 Hgb 12.3 Hct 39.3 MCV 76.6 L MCH 24.0 L MCHC 31.3 L RDW Std Deviation 55.1 H RDW Coeff of Thony 20.4 H Plt Count 350 MPV 9.6 Immature Gran % (Auto) 0.400 Neut % (Auto) 64.1 Lymph % (Auto) 24.1 Callaway % (Auto) 6.8 Eos % (Auto) 4.2 Baso % (Auto) 0.4 Absolute Neuts (auto) 8.6 H Absolute Lymphs (auto) 3.23 Nucleated RBC % 0 Differential Comment SCANNED Polychromasia RARE Anisocytosis 2+ Microcytosis 1+ Sodium 139 Potassium 4.0 Chloride 105 Carbon Dioxide 29.0 Anion Gap 5 BUN 9 Creatinine 0.55 Estim Creat Clear Calc 154.38 Est GFR (MDRD) Af Amer 161 Est GFR (MDRD) Non-Af 133 BUN/Creatinine Ratio 16.3 Glucose 95 Calcium 9.2 Urine Color Yellow Urine Clarity Sl. Cloudy Urine pH 6.0 Ur Specific Brooks 1.015 Urine Protein Negative Urine Glucose (UA) Normal Urine Ketones Negative Urine Occult Blood Negative Urine Nitrite Negative Urine Bilirubin Negative Urine Urobilinogen Normal Ur Leukocyte Esterase 500 H Urine RBC 0 SEEN Urine WBC 5-10 SEEN Ur Squamous Epith Cells 5-10 SEEN Urine Bacteria RARE Urine Mucus 0 SEEN Radiography Diagnostic Testing: Clinical Impression(s) from Imaging Studies Abdomen/Pelvis CT 08/10/22 22:10 IMPRESSION: Small pericardial effusion. No acute abnormal finding in the abdomen or pelvis. Electronically Signed: Talat Childers MD at 22:48 EST , Discharge Plan Triage Chief Complaint: Abd Pain ED Provider: José Miguel Posada Dx/Rx/DC Orders Clinical Impression: Abdominal pain, Nausea Instructions: ED Abdominal Pain Unkn Cause Fem Prescriptions: New ondansetron 4 mg tablet,disintegrating 4 mg PO Q6H PRN (Reason: nausea and vomiting) Qty: 15 0RF dicyclomine 20 mg tablet 20 mg PO TID PRN (Reason: abdominal pain) Qty: 20 0RF No Action acetaminophen [Tylenol Extra Strength] 500 mg tablet 500 mg PO Q6H PRN (Reason: Fever) ibuprofen 200 mg capsule 600 mg PO TID PRN (Reason: Pain) benzonatate 200 mg capsule 200 mg PO TID PRN (Reason: cough) Qty: 20 0RF codeine-guaifenesin 10-100 mg/5 mL liquid 5 ml PO Q6H PRN (Reason: cough) Qty: 120 0RF albuterol sulfate [Ventolin HFA] 90 mcg/actuation HFA aerosol inhaler 2 puff inhalation Q6H PRN (Reason: shortness of breath or wheezing) Qty: 8.5 1RF ondansetron 4 mg tablet,disintegrating 4 mg PO Q8H PRN (Reason: nausea and vomiting) Qty: 30 0RF levofloxacin 750 mg tablet 750 mg PO DAILY Qty: 6 0RF benzonatate 200 mg capsule 200 mg PO TID PRN (Reason: cough) Qty: 20 0RF hydrocodone-acetaminophen [hydrocodone-acetaminophen] 5-325 mg tablet 1 tab PO Q4H PRN PRN (Reason: Pain) 2 Days Qty: 10 0RF hydroxyzine HCl 10 mg tablet 10 mg PO TID PRN (Reason: anxiety) Qty: 90 0RF Primary Care Provider: Guy Patiño Referrals: Guy Patiño MD [Primary Care Provider] - 3-5 Days if not improving Disposition Disposition: Home, Self Care
[2022-08-10] MEDS: Ondansetron 4 MG/2 ML Vial IV (22:45)
[2022-08-10] MEDS: Morphine 4 MG/ML Syringe IV (22:46)
[2022-08-10 22:49] VITALS: O2SAT 99
== END 2022-08-10 23:25 | disposition home or self-care (01) ==
PROVIDERS: Emergency Provider Emergency Medicine; PCP Internal Medicine; Visit Provider Emergency Medicine
DX: R10.9 Unspecified abdominal pain (principal); R11.0 Nausea; F17.210 Nicotine dependence, cigarettes, uncomplicated
CPT/HCPCS: 74177; 80048; 81001; 85025; 96374; 96375; 99283; J7030; Q9967; A4216; J2405

== ENCOUNTER 2022-11-14 20:19 | Emergency (ER) | payer MEDICARE, MEDICAID, SELFPAY ==
[2022-11-14 20:20] VITALS: BP 137/79; PULSE 120; RESP 14; TEMP 36.6; O2SAT 98; BMI 47.3
--- NOTE | 2022-11-14 21:12 | EX.ED.VIS.HA ---
HPI History of Present Illness Chief Complaint: Headache Narrative Narrative: 37-year-old female presenting with migraine headache. She states this started today. She has some nausea and vomiting associated with it. Light and sound sensitivity as well. Patient denies any trauma. Denies any fever or neck stiffness. She has a history of migraines. [facility] Medical History Anemia Anxiety Arthritis Bipolar depression manic phase Bipolar disorder Chronic cough Chronic low back pain Contact with and (suspected) exposure to other viral communicable diseases COPD (chronic obstructive pulmonary disease) COVID-19 Edentulous Herniated disc History of brain disorder History of edema Hydocephalus Instability of right patellofemoral joint Kidney stones Obesity Panic attacks Shortness of breath on exertion Smoker Wears glasses Home Medications acetaminophen 500 mg tablet (Tylenol Extra Strength) 500 mg PO Q6H PRN Fever 04/28/22 [History Last Taken Unknown] ibuprofen 200 mg capsule 600 mg PO TID PRN Pain 04/28/22 [History Last Taken Unknown] hydroxyzine HCl 10 mg tablet 10 mg PO TID PRN anxiety #90 tabs 06/08/22 [Rx Last Taken Unknown] benzonatate 200 mg capsule 200 mg PO TID PRN cough #20 caps 07/14/22 [Rx Last Taken Unknown] albuterol sulfate 90 mcg/actuation aerosol inhaler (Ventolin HFA) 2 puff inhalation Q6H PRN shortness of breath or wheezing #8.5 grams 07/15/22 [Rx Last Taken Unknown] codeine 10 mg-guaifenesin 100 mg/5 mL oral liquid 5 ml PO Q6H PRN cough #120 mL 07/15/22 [Rx Last Taken Unknown] ondansetron 4 mg disintegrating tablet 4 mg PO Q8H PRN nausea and vomiting #30 tabs 07/15/22 [Rx Last Taken Unknown] benzonatate 200 mg capsule 200 mg PO TID PRN cough #20 caps 07/29/22 [Rx Last Taken Unknown] hydrocodone-acetaminophen 5-325mg 5mg-325mg 1 tab PO Q4H PRN PRN Pain 2 days #10 TABLETS 07/29/22 [Rx Last Taken Unknown] levofloxacin 750 mg tablet 750 mg PO DAILY #6 tabs 07/29/22 [Rx Last Taken Unknown] dicyclomine 20 mg tablet 20 mg PO TID PRN abdominal pain #20 tabs 08/10/22 [Rx Last Taken Unknown] ondansetron 4 mg disintegrating tablet 4 mg PO Q6H PRN nausea and vomiting #15 tabs 08/10/22 [Rx Last Taken Unknown] Allergy/AdvReac Type Severity Reaction Status Date / Time ceftriaxone sodium Allergy Hives Verified 11/14/22 20:23 [From Rocephin] tramadol Allergy Hives Verified 11/14/22 20:23 bupropion HCl AdvReac MAKES Verified 11/14/22 20:23 [From Wellbutrin] ANXIETY WORSE Family History Grandmother Asthma Thyroid disorder Mother Asthma Thyroid disorder COPD (chronic obstructive pulmonary disease) Aunt Asthma Heart disease Hypertension Thyroid disorder Emphysema, unspecified Grandfather Asthma Diabetes Hypertension Hyperlipidemia COPD (chronic obstructive pulmonary disease) Surgical History D&C History of 3 sections History of ankle surgery History of bilateral tubal ligation History of cholecystectomy History of tonsillectomy left ankle ligament repair Social History household members: family housing: house number of children: 3 current occupational status: unemployed pets and animals: Yes Smoking Status: Current every day smoker tobacco type: cigarettes second hand exposure: Yes alcohol intake: never substance use type: does not use caffeine: No what type of physical activity do you participate in: walking frequency: daily seatbelt use: always do you feel safe at home: Yes ROS ROS ED Constitutional Constitutional ED: Denies chills or fever(s) Eyes Eyes: Reports other Details: Light sensitivity ; Denies change in vision or diplopia ENT ENT ED: Reports other Details: Sound sensitivity ; Denies rhinorrhea Cardiovascular Cardiovascular: Denies chest pain Respiratory/Chest Respiratory/Chest: Denies cough or dyspnea Gastrointestinal Gastrointestinal: Denies abdominal pain, nausea or vomiting Genitourinary Genitourinary ED: Denies dysuria or hematuria Musculoskeletal Musculoskeletal: Denies arthralgias Integumentary Denies abscess Neurologic Neurologic: Reports headache(s); Denies paresthesias Psychiatric Psychiatric: Denies anxiety EXAM Physical Exam Const Vital Signs: 11/14/22 20:20 Temperature 98 F Temperature Source Temporal Pulse Rate 120 H Respiratory Rate 14 Blood Pressure 137/79 H Blood Pressure Mean 98 Pulse Ox 98 Oxygen Delivery Method Room Air Positive well nourished General Appearance ED: NAD; Negative for pallor HEENT Reports normocephalic atraumatic Eyes EOMs intact bilaterally Neck no meningeal signs Resp normal respiratory effort Neuro oriented x3 and CN's II-XII intact bilaterally Sensorium / Orientation: awake and alert Psych mental status grossly normal Skin General Skin Exam: Negative for jaundice or pallor MDM MDM MDM Narrative Medical decision making narrative: Patient presenting with headache. She feels she has a migraine. She states she is also vomiting. Patient given Reglan, Benadryl, Toradol. She is given a liter of fluids. I do not believe she needs a head CT as she has a history of migraines. She does have any focal neurologic deficits or lateralizing signs or symptoms. No meningeal signs. On reevaluation at 10:20 PM the patient is sleeping. I woke her she states her headache is better. This point she can be discharged home. Return precautions were discussed. Impression: 1. Headache 2. Nausea/vomiting Discharge Plan Triage Chief Complaint: Headache ED Provider: Romulo Nichols Dx/Rx/DC Orders Instructions: ED Headache Unspecified Prescriptions: No Action acetaminophen [Tylenol Extra Strength] 500 mg tablet 500 mg PO Q6H PRN (Reason: Fever) ibuprofen 200 mg capsule 600 mg PO TID PRN (Reason: Pain) benzonatate 200 mg capsule 200 mg PO TID PRN (Reason: cough) Qty: 20 0RF codeine-guaifenesin 10-100 mg/5 mL liquid 5 ml PO Q6H PRN (Reason: cough) Qty: 120 0RF albuterol sulfate [Ventolin HFA] 90 mcg/actuation HFA aerosol inhaler 2 puff inhalation Q6H PRN (Reason: shortness of breath or wheezing) Qty: 8.5 1RF ondansetron 4 mg tablet,disintegrating 4 mg PO Q8H PRN (Reason: nausea and vomiting) Qty: 30 0RF levofloxacin 750 mg tablet 750 mg PO DAILY Qty: 6 0RF benzonatate 200 mg capsule 200 mg PO TID PRN (Reason: cough) Qty: 20 0RF hydrocodone-acetaminophen [hydrocodone-acetaminophen] 5-325 mg tablet 1 tab PO Q4H PRN PRN (Reason: Pain) 2 Days Qty: 10 0RF ondansetron 4 mg tablet,disintegrating 4 mg PO Q6H PRN (Reason: nausea and vomiting) Qty: 15 0RF dicyclomine 20 mg tablet 20 mg PO TID PRN (Reason: abdominal pain) Qty: 20 0RF hydroxyzine HCl 10 mg tablet 10 mg PO TID PRN (Reason: anxiety) Qty: 90 0RF Primary Care Provider: Guy Patiño Referrals: Guy Patiño MD [Primary Care Provider] - Disposition Disposition: Home, Self Care
[2022-11-14] MEDS: Metoclopramide 10 MG/2 ML Vial IV (21:51)
[2022-11-14] MEDS: DiphenhydrAMINE 50 MG/ML Syringe 25 MG IV (21:51)
[2022-11-14] MEDS: Ketorolac 15 MG/ML Vial IV (21:51)
[2022-11-14] MEDS: 0.9% Normal Saline 1,000 ML 999 ML IV (21:51)
== END 2022-11-14 22:41 | disposition home or self-care (01) ==
PROVIDERS: Emergency Provider Student in an Organized Health Care Education/Training Program; PCP Internal Medicine; Visit Provider Student in an Organized Health Care Education/Training Program
DX: R51.9 Headache, unspecified (principal); R11.2 Nausea with vomiting, unspecified; Z86.16 Personal history of COVID-19
CPT/HCPCS: 96374; 96375; 99283; J7030; A4216

== ENCOUNTER → 2022-12-21 | Outpatient (CLI) | payer MEDICARE, MEDICAID, SELFPAY ==
[2022-12-21 12:18] LABS: Absolute Lymphocyte Count 3.15 X10^3/uL (0.83-4.51); Absolute Neutrophil Count 8.1 X10^3/uL (2.0-7.7); Basophil# 0.06 X10^3/uL; Basophil% 0.5 % (0-1); Eosinophils% 3.2 % (0-5); Hematocrit 41.8 % (37-47); Lymphocyte # 3.15 X10^3/ul (0.83-4.51); Lymphocyte % 24.9 % (19-41); Mean Corp Hgb Conc 31.1 g/dL (32-36); Mean Corpuscular Hgb 25.4 pg (27.0-32.0); Mean Corpuscular Volume 81.8 fL (81-99); Mean Platelet Vol. 10.5 fl (6.2-12.0); Monocyte# 0.93 X10^3/uL; Monocyte% 7.3 % (0-10); NRBC Flagged by Analyzer 0 % (0-5); Neutrophil # 8.07 X10^3/uL (2.7-7.7); Neutrophil % 63.7 % (47-70); Platelet Count 351 K/mm3 (150-450); RBC Distribution Width CV 19.9 % (11.6-14.6); RBC Distribution Width SD 57.8 fl (35.1-43.9); Red Blood Count 5.11 M/mm3 (4.2-5.4); White Blood Count 12.7 K/mm3 (4.4-11.0)
[2022-12-21 12:52] LABS: Vitamin B12 833 pg/mL (211-911); Vitamin D,25 Hydroxy 24.8 ng/mL
[2022-12-21 13:10] LABS: ALB/GLOB Ratio 0.7 RATIO (0.9-2.4); AST(SGOT) 15 U/L (15-37); Alanine Aminotransfer ALT/SGPT 27 U/L (13-56); Albumin, Serum 3.4 g/dL (3.2-5.0); Alkaline Phosphatase 110 U/L (45-117); Anion Gap 6 (5-15); BUN 6 mg/dL (7-18); BUN/Creat Ratio 11.1 RATIO (10-20); Calcium,Total 9.7 mg/dL (8.5-10.1); Chloride 104 mmol/L (98-107); Creatinine, Serum 0.54 mg/dL (0.55-1.02); EST Glomerular Filtration Rate 135 mL/min (>60); Est Glom Filt Rate - Afr Amer 164 mL/min (>60); Globulin 4.6 g/dL (2.2-4.2); Glucose 91 mg/dL (74-106); Potassium 4.4 mmol/L (3.5-5.1); Sodium Level 138 mmol/L (136-145); T4 Free Direct 0.76 ng/dL (0.76-1.46)
== END | disposition home or self-care (01) ==
LOC: BIMLAB 10:01
PROVIDERS: PCP Internal Medicine; Referring Provider Nurse Practitioner Family; Visit Provider Nurse Practitioner Family
DX: N20.0 Calculus of kidney (principal); E01.0 Iodine-deficiency related diffuse (endemic) goiter; F32.9 Major depressive disorder, single episode, unspecified; E55.9 Vitamin D deficiency, unspecified
CPT/HCPCS: 36415; 80053; 82306; 82607; 84439; 84443; 85025

== ENCOUNTER → 2022-12-30 | Outpatient (CLI) | payer MEDICARE, MEDICAID, SELFPAY ==
--- NOTE | 2022-12-30 12:03 | US_ITS ---
STUDY: THYROID ULTRASOUND REASON FOR EXAM: Female, 37 years old. thyromegaly TECHNIQUE: Ultrasound evaluation of the thyroid was performed with real-time and static kent-scale imaging. COMPARISON: 05/20/2020 FINDINGS: RIGHT LOBE: The right lobe of the thyroid gland measures 9.9 x 3.3 x 3.4 cm. There is a heterogeneous echotexture. There are no demonstrated solid, cystic or complex lesions. LEFT LOBE: The left lobe of the thyroid gland measures 10.2 x 2.5 x 2.9 cm. There is a heterogeneous echotexture. There are no demonstrated solid, cystic or complex lesions. ISTHMUS: The isthmus measures 1.6 cm. 1.6 x 1.5 x 1.0 cm focal nodular structure of the isthmus is seen on image 46 and appears to be present on the prior ultrasound (image 2), although not specifically measured. This could represent a focal nodule versus localized gland heterogeneity. The regional lymph nodes are normal. US/Thyroid IMPRESSION: 1. Significant thyromegaly with diffuse gland heterogeneity, not substantially changed. 2. Focal nodule versus localized gland heterogeneity of the isthmus is not substantially changed when compared side by side. Electronically Signed: Vu Regan (Brooks), at 17:45 EDT ,
== END | disposition home or self-care (01) ==
LOC: US 12:02
PROVIDERS: PCP Internal Medicine; Referring Provider Nurse Practitioner Family; Visit Provider Nurse Practitioner Family
DX: E01.0 Iodine-deficiency related diffuse (endemic) goiter (principal); F32.9 Major depressive disorder, single episode, unspecified
CPT/HCPCS: 76536

== ENCOUNTER → 2023-02-08 | Outpatient (CLI) | payer MEDICARE, MEDICAID, SELFPAY ==
--- NOTE | 2023-02-08 | FLU_PTH ---
PATIENT: NEGRITO BUSTAMANTE LOC: [facility] U#:[id number] AGE/SX: 37/F ROOM: RE02/08/[address]: Dr. Yemi Benjamin MD : 1985 BED: DIS: 02/08/2023 SPEC #: [id number] RECD: 02/09/23 08:56 STATUS: CARMELITA LANETTE #: [id number] MANPREET: 02/08/23 00:[address]: Yemi Benjamin DEPT: CYTOLOGY RECD BY: Faraz Villanueva ENTERED: 02/09/23 08:56 SP TYPE: Fluid OTHR DR: Dr. Guy Patiño MD Tissues: A - Thyroid gland, NOS B - Thyroid gland, NOS Procedures: Special Stain Group II Surgery Specimen Level IV Cytospin Fluid HEADER OPERATION: Fine needle aspiration of left thyroid isthmus nodule PRE-OP DIAGNOSIS: Thyroid nodules TISSUE SUBMITTED: A - FNA left thyroid isthmus nodule fluid, B - FNA left thyroid isthmus nodule x4?slides DIAGNOSIS CYTOLOGY A. Left thyroid isthmus nodule fluid, fine needle aspiration (cytospin and cell block): Consistent with benign follicular/colloid nodule (Concord Category II). Adequate for evaluation. See comment. B. Left thyroid isthmus nodule, fine needle aspiration (smears): Consistent with benign follicular/colloid nodule (Concord Category II). Adequate for evaluation. See comment. YELENA:arminda 02/10/2023 COMMENT A & B. Correlation with clinical, radiologic findings and appropriate follow up are necessary. The Concord System for thyroid diagnostic categorization was used in the evaluation of this case. CYTOLOGY STUDY Slides are reviewed. CYTOLOGY GROSS A - Received is 40 ml of red cloudy fluid labeled with the patient's name and and designated per the requisition as left thyroid isthmus nodule. Submitted for cytology preparation including cell block. B - Received are four smears labeled with the patient's name and designated per the requisition as left thyroid isthmus nodule. Submitted for staining. / arminda 02/09/2023 TC:5 CPT: 39553 x2, 26086
== END | disposition home or self-care (01) ==
LOC: LABSPEC 16:05
PROVIDERS: PCP Internal Medicine; Referring Provider Surgery; Visit Provider Surgery
DX: E04.1 Nontoxic single thyroid nodule (principal)
CPT/HCPCS: 88108; 88305; 88313

== ENCOUNTER 2023-04-07 08:45 | Emergency (ER) | payer MEDICARE, MEDICAID, SELFPAY ==
[2023-04-07 08:47] VITALS: BP 109/71; PULSE 124; RESP 22; TEMP 37.2; O2SAT 94
[2023-04-07 08:55] VITALS: PULSE 114; RESP 26; O2SAT 92; BMI 48.3
[2023-04-07 09:06] VITALS: TEMP 37.1
--- NOTE | 2023-04-07 09:16 | EDS_ITS ---
HPI History of Present Illness Chief Complaint: Shortness of Breath Informant: patient Narrative Narrative: Occasionally productive cough, congestion, chills/sweats, and wheezing/shortness of breath since yesterday. Her mom is a close contact who has a cold. She has a history of COPD and it has been flaring it up since yesterday. Has not checked her temperature. Main issue is that she is having trouble stopping coughing and this is giving her trouble breathing in addition to the wheezing. She has a rescue inhaler that she has not been able to locate, and she does not have a nebulizer right now. Chronic swelling in her legs is no worse than usual. No other symptoms. [facility] Medical History Anemia Anxiety Arthritis Bipolar depression manic phase Bipolar disorder Chronic cough Chronic low back pain Contact with and (suspected) exposure to other viral communicable diseases COPD (chronic obstructive pulmonary disease) COVID-19 Edentulous Herniated disc History of brain disorder History of edema Hydocephalus Hypothyroidism Instability of right patellofemoral joint Kidney stones Obesity Panic attacks Shortness of breath on exertion Smoker Thyromegaly Wears glasses Home Medications acetaminophen 500 mg tablet (Tylenol Extra Strength) 500 mg PO Q6H PRN Fever 04/28/22 [History Last Taken Unknown] ibuprofen 200 mg capsule 600 mg PO TID PRN Pain 04/28/22 [History Last Taken Unknown] hydroxyzine HCl 10 mg tablet 10 mg PO TID PRN anxiety #90 tabs 06/08/22 [Rx Last Taken Unknown] escitalopram oxalate 20 mg tablet 20 mg PO DAILY #90 tabs 12/21/22 [Rx Last Taken Unknown] levothyroxine 50 mcg tablet 50 mcg PO DAILY #90 tabs 12/22/22 [Rx Last Taken Unknown] albuterol sulfate 90 mcg/actuation aerosol inhaler (Ventolin HFA) 2 puff inhalation Q6H PRN shortness of breath or wheezing #8.5 grams 02/08/23 [Rx Last Taken Unknown] albuterol sulfate 90 mcg/actuation aerosol inhaler 2 puff inhalation 6XD PRN shortness of breath or wheezing #6.7 grams 04/07/23 [Rx Last Taken Unknown] albuterol sulfate 90 mcg/actuation aerosol inhaler (Ventolin HFA) 1 - 2 puff inhalation Q4H PRN PRN Wheezing ##1 04/07/23 [Rx Last Taken Unknown] azithromycin 250 mg tablet See Rx Instructions PO .COMPLEX #6 tabs 04/07/23 [Rx Last Taken Unknown] doxycycline monohydrate 100 mg capsule 100 mg PO BID #14 CAPSULES 04/07/23 [Rx Last Taken Unknown] methylprednisolone 4 mg tablets in a dose pack (Medrol (Benito)) 4 mg PO PER PKG DIR 6 days #21 tabs 04/07/23 [Rx Last Taken Unknown] prednisone 10 mg tablet 10 mg PO UD #29 tabs 04/07/23 [Rx Last Taken Unknown] Allergy/AdvReac Type Severity Reaction Status Date / Time ceftriaxone sodium Allergy Hives Verified 04/07/23 08:46 [From Rocephin] tramadol Allergy Hives Verified 04/07/23 08:46 bupropion HCl AdvReac MAKES Verified 04/07/23 08:46 [From Wellbutrin] ANXIETY WORSE Family History Grandmother Asthma Thyroid disorder Mother Asthma Thyroid disorder COPD (chronic obstructive pulmonary disease) Aunt Asthma Heart disease Hypertension Thyroid disorder Emphysema, unspecified Grandfather Asthma Diabetes Hypertension Hyperlipidemia COPD (chronic obstructive pulmonary disease) Surgical History D&C History of 3 sections History of ankle surgery History of bilateral tubal ligation History of cholecystectomy History of tonsillectomy left ankle ligament repair Social History household members: family housing: house number of children: 3 current occupational status: unemployed pets and animals: Yes Smoking Status: Current every day smoker tobacco type: cigarettes second hand exposure: Yes alcohol intake: never substance use type: does not use caffeine: No what type of physical activity do you participate in: walking frequency: daily seatbelt use: always do you feel safe at home: Yes ROS ROS ED Constitutional Constitutional ED: Reports chills and sweats; Denies fever(s) Eyes Eyes: Denies change in vision or diplopia ENT ENT ED: Reports rhinorrhea; Denies ear pain or sore throat Cardiovascular Cardiovascular: Reports leg edema; Denies chest pain or palpitations Respiratory/Chest Respiratory/Chest: Reports cough, dyspnea, dyspnea on exertion and wheezing Gastrointestinal Gastrointestinal: Denies abdominal pain, diarrhea, nausea or vomiting Genitourinary Genitourinary ED: Denies dysuria or hematuria Musculoskeletal Musculoskeletal: Denies myalgias or neck pain Integumentary Denies abscess or rash Neurologic Neurologic: Denies headache(s), paresthesias or weakness Psychiatric Psychiatric: Denies anxiety or suicidal thoughts EXAM Physical Exam Const Vital Signs: 04/07/23 08:47 04/07/23 08:55 04/07/23 08:55 Temperature 99 F Temperature Source Temporal Pulse Rate 124 H 114 H Respiratory Rate 22 H 26 H Respiratory Effort Short of Breath Respiratory Depth Shallow Respiratory Pattern Tachypnea Blood Pressure 109/71 Blood Pressure Mean 83 Pulse Ox 94 92 Oxygen Delivery Method Room Air Room Air Room Air 04/07/23 09:06 04/07/23 09:22 04/07/23 09:45 Temperature 98.8 F Temperature Source Oral Pulse Rate 114 H 120 H Respiratory Rate 22 H 16 Respiratory Effort Respiratory Depth Respiratory Pattern Tachypnea Blood Pressure 135/78 H Blood Pressure Mean 97 Pulse Ox 95 Oxygen Delivery Method Room Air Positive well nourished and well developed Constitutional Narrative: Morbid obesity limits exam General Appearance ED: well developed and NAD HEENT Reports moist mucous membranes normocephalic and atraumatic Eyes PERRL and EOMs intact bilaterally Neck full ROM, no lymphadenopathy, supple and no JVD Resp clear to auscultation bilaterally Resp Narrative: Lungs are clear and diminished throughout, symmetrically. Trachea midline. No respiratory distress. Frequent bronchospasm worsened by deep inspiration. Cardio regular rate, regular rhythm and no murmurs GI non-tender and non-distended Auscultation: normoactive bowel sounds Palpation: soft Back/Spine no CVA tenderness General Back: other FROM Extremity normal to inspection General Extremety ED: Negative for edema, pulses abnormal or tenderness General Extremity: Negative for edema or pulses abnormal Neuro oriented x3, CN's II-XII intact bilaterally and no sensory deficits noted Sensorium / Orientation: awake and alert Motor Exam: strength 5/5 throughout Skin no rashes or lesions noted and no wounds MDM MDM MDM Narrative Medical decision making narrative: Chest x-ray 2 view show no acute pneumonia on my interpretation. Radiology in agreement. COVID test sent and is negative. Patient was given a few nebulizer treatments in addition to prednisone. She is feeling better on reevaluation still has cough. We discussed the likelihood that this is viral and the fact that I am not going to be able to cure her cough, antibiotics are indicated bec ause she has a COPD exacerbation to prevent bacterial superinfection, she also understands that if this is viral the antibiotic will not solve the illness, just prevent her from getting worse, prednisone indicated for the wheezing she is amenable to all of this and following up. Radiography Diagnostic Testing: Clinical Impression(s) from Imaging Studies Chest X-Ray 04/07/23 09:48 IMPRESSION: No interval change and no acute or active cardiopulmonary disease. Electronically Signed: Jefferson Schwab MD at 10:03 EDT , Discharge Plan Triage Chief Complaint: Shortness of Breath ED Provider: Ronen Kelley Dx/Rx/DC Orders Clinical Impression: Viral URI with cough, Acute exacerbation of chronic obstructive pulmonary disease (COPD) Instructions: COPD Quit Smoking, ED COPD Flare Prescriptions: New doxycycline monohydrate 100 mg capsule 100 mg PO BID Qty: 14 0RF albuterol sulfate [Ventolin HFA] 90 mcg/actuation HFA aerosol inhaler 1 - 2 puff inhalation Q4H PRN PRN (Reason: Wheezing) Qty: 1 0RF prednisone 10 mg tablet 10 mg PO UD Qty: 29 0RF Rx Instructions: Take 4 tablets daily for 2 days, then 3 daily for 3 days, then 2 daily for 3 days, then 1 a day for 3 days then 1 QOD for 3 doses. No Action acetaminophen [Tylenol Extra Strength] 500 mg tablet 500 mg PO Q6H PRN (Reason: Fever) ibuprofen 200 mg capsule 600 mg PO TID PRN (Reason: Pain) escitalopram oxalate 20 mg tablet 20 mg PO DAILY Qty: 90 3RF azithromycin 250 mg tablet See Rx Instructions PO .COMPLEX Qty: 6 0RF Rx Instructions: take 500 mg today (day 1), then 250 mg for 4 days (days 2-5) PO methylprednisolone [Medrol ([place]ito)] 4 mg tablets,dose pack 4 mg PO PER PKG DIR 6 Days Qty: 21 0RF albuterol sulfate 90 mcg/actuation HFA aerosol inhaler 2 puff inhalation 6XD PRN (Reason: shortness of breath or wheezing) Qty: 6.7 0RF hydroxyzine HCl 10 mg tablet 10 mg PO TID PRN (Reason: anxiety) Qty: 90 0RF levothyroxine 50 mcg tablet 50 mcg PO DAILY Qty: 90 1RF albuterol sulfate [Ventolin HFA] 90 mcg/actuation HFA aerosol inhaler 2 puff inhalation Q6H PRN (Reason: shortness of breath or wheezing) Qty: 8.5 1RF Primary Care Provider: Guy Patiño Referrals: Guy Patiño MD [Primary Care Provider] - 3-5 Days if not improving Disposition Disposition: Home, Self Care
[2023-04-07] MEDS: Albuterol 2.5 MG/3 ML VIAL.NEB. INHALATION ×3 (09:20→09:21)
[2023-04-07] MEDS: Ipratropium/Albuterol Sulfate 3 ML AMPUL.NEB INHALATION (09:21)
[2023-04-07 09:22] VITALS: PULSE 114; RESP 22
[2023-04-07] MEDS: guaiFENesin Dm 10 ML UDC PO (09:41)
[2023-04-07] MEDS: predniSONE 20 MG Tablet 40 MG PO (09:41)
[2023-04-07 09:45] VITALS: BP 135/78; PULSE 120; RESP 16; O2SAT 95
--- NOTE | 2023-04-07 09:48 | RAD_ITS ---
STUDY: X-RAY CHEST REASON FOR EXAM: Female, 38 years old. Cough with shortness of breath. TECHNIQUE: Frontal and lateral views of the chest. COMPARISON: Chest dated July 2022. FINDINGS: The lungs are clear and expanded. There is no demonstrated pleural abnormality. Normal size heart. Normal mediastinum and jag. Normal visualized pulmonary arteries. Normal visualized aortic arch and descending thoracic aorta. Normal visualized thoracic spine. Normal visualized ribs, clavicles, and shoulders. No abnormality of the visualized soft tissue structures of the upper abdomen. RAD/Chest PA and Lateral IMPRESSION: No interval change and no acute or active cardiopulmonary disease. Electronically Signed: Jefferson Schwab MD at 10:03 EDT ,
[2023-04-07 11:15] VITALS: BP 138/79; PULSE 115; RESP 20; O2SAT 96
== END 2023-04-07 11:16 | disposition home or self-care (01) ==
PROVIDERS: Emergency Provider Emergency Medicine; PCP Internal Medicine; Visit Provider Emergency Medicine
DX: J06.9 Acute upper respiratory infection, unspecified (principal); J44.1 Chronic obstructive pulmonary disease with (acute) exacerbation; F17.210 Nicotine dependence, cigarettes, uncomplicated; Z86.16 Personal history of COVID-19
CPT/HCPCS: 71046; 87811; 93005; 94640; 99282; A4216

== ENCOUNTER 2023-04-20 18:28 | Inpatient (IN) | payer MEDICARE, MEDICAID, SELFPAY ==
[2023-04-20] VITALS (9 sets, daily range): BP systolic 102–140; BP diastolic 61–98; PULSE 80–99; RESP 18–22; TEMP 36.6–37.2; O2SAT 87–100; BMI 51.2; BMI 51.1
--- NOTE | 2023-04-20 19:45 | EKG12_ITS ---
Test Reason : DYSRHYTHMIA Blood Pressure : / mmHG Vent. Rate : 081 BPM Atrial Rate : 081 BPM P-R Int : 134 ms QRS Dur : 084 ms QT Int : 358 ms P-R-T Axes : 060 013 036 degrees QTc Int : 415 ms Normal sinus rhythm Normal ECG Confirmed by JEANNA HCOUDHARY, ELIAZAR ([id number]), news editor JONATHAN JOHNSON ([id number]) on 04/21/2023 12:19:39 PM Referred By: Confirmed By:ELIAZAR MEEKS MD
--- NOTE | 2023-04-20 19:47 | ED.VIS.DYS ---
HPI History of Present Illness Chief Complaint: Cough Informant: patient Narrative Narrative: Patient presents with continued COPD problems. She states that about 2 weeks ago she started coughing and wheezing. She was seen here. She was placed on doxycycline and steroids. She was using inhalers. She is trying to cut back on cigarettes and was counseled that this is of absolute 100% critical importance to stop. She states she was not getting better. Showed she went to [facility]. She was told she has extreme bronchitis and severe inflammation of her lungs. She was then put on azithromycin which she has 1 day left. She was also started on a another dose of steroids at 40 mg a day. She has been taking that. She states she is still wheezing. She is still coughing. She is not having chest pain. No sputum production. No fevers. No leg pain or swelling. No personal family history of DVT or PEs. No recent surgeries or travel. No hemoptysis. She states that she is just not getting better. [facility] Medical History (Updated 04/20/23 @ 21:[address] Mitali Moncada MD) Anemia Anxiety Bipolar depression manic phase Bipolar disorder Chronic cough Chronic low back pain COPD (chronic obstructive pulmonary disease) COVID-19 Edentulous Herniated disc History of brain disorder Hydocephalus Hypothyroidism Kidney stones Obesity ZANA (obstructive sleep apnea) Panic attacks Smoker Thyromegaly Wears glasses Home Medications acetaminophen 500 mg tablet (Tylenol Extra Strength) 500 mg PO Q6H PRN Fever 04/28/22 [History Last Taken Unknown] ibuprofen 200 mg capsule 600 mg PO TID PRN Pain 04/28/22 [History Last Taken Unknown] hydroxyzine HCl 10 mg tablet 10 mg PO TID PRN anxiety #90 tabs 06/08/22 [Rx Last Taken Unknown] escitalopram oxalate 20 mg tablet 20 mg PO DAILY #90 tabs 12/21/22 [Rx Last Taken Unknown] levothyroxine 50 mcg tablet 50 mcg PO DAILY #90 tabs 12/22/22 [Rx Last Taken Unknown] albuterol sulfate 90 mcg/actuation aerosol inhaler (Ventolin HFA) 2 puff inhalation Q6H PRN shortness of breath or wheezing #8.5 grams 02/08/23 [Rx Last Taken Unknown] albuterol sulfate 90 mcg/actuation aerosol inhaler 2 puff inhalation 6XD PRN shortness of breath or wheezing #6.7 grams 04/07/23 [Rx Last Taken Unknown] albuterol sulfate 90 mcg/actuation aerosol inhaler (Ventolin HFA) 1 - 2 puff inhalation Q4H PRN PRN Wheezing ##1 04/07/23 [Rx Last Taken Unknown] azithromycin 250 mg tablet See Rx Instructions PO .COMPLEX #6 tabs 04/07/23 [Rx Last Taken Unknown] doxycycline monohydrate 100 mg capsule 100 mg PO BID #14 CAPSULES 04/07/23 [Rx Last Taken Unknown] prednisone 10 mg tablet 10 mg PO UD #29 tabs 04/07/23 [Rx Last Taken Unknown] Allergy/AdvReac Type Severity Reaction Status Date / Time ceftriaxone sodium Allergy Hives Verified 04/20/23 18:29 [From Rocephin] tramadol Allergy Hives Verified 04/20/23 18:29 bupropion HCl AdvReac MAKES Verified 04/20/23 18:29 [From Wellbutrin] ANXIETY WORSE Family History Grandmother Asthma Thyroid disorder Mother Asthma Thyroid disorder COPD (chronic obstructive pulmonary disease) Aunt Asthma Heart disease Hypertension Thyroid disorder Emphysema, unspecified Grandfather Asthma Diabetes Hypertension Hyperlipidemia COPD (chronic obstructive pulmonary disease) Surgical History D&C History of 3 sections History of ankle surgery History of bilateral tubal ligation History of cholecystectomy History of tonsillectomy left ankle ligament repair Social History household members: family housing: house number of children: 3 current occupational status: unemployed pets and animals: Yes Smoking Status: Current every day smoker tobacco type: cigarettes second hand exposure: Yes alcohol intake: never substance use type: does not use caffeine: No what type of physical activity do you participate in: walking frequency: daily seatbelt use: always do you feel safe at home: Yes ROS ROS ED ROS Narrative A complete review of systems was performed and is negative except as documented in the history of present illness. Some specific details below. Constitutional: No recent fevers or chills. She has had some malaise EYE: No discharge, visual complaints, or pain. ENT: No difficulty swallowing. No swelling. No pain. No reflux symptoms. CV: Denies chest pain. Denies racing heart or palpitations. Respiratory: See history of present illness. GI: No abdominal pain. No nausea vomiting diarrhea. No blood in stool. : No frequency dysuria or hematuria. Musculoskeletal: No recent trauma. No pains. No swelling. No history of DVT. Skin: No rash. Nondiaphoretic. Neuro: No weakness or numbness. Endocrine: No polyuria or polydipsia. EXAM Physical Exam Narrative Exam Narrative: CONSTITUTIONAL: Patient is nontoxic in appearance. The patient looks comfortable. Work of breathing looks slightly increased. HEENT: No notable trauma. Mucous membranes moist. No sinus tenderness. No indication of pain with swallowing. Throat looks normal but she does have a slightly scratchy throat EYES: No conjunctival injection. NECK:No JVD. No stridor. CARDIOVASCULAR: Regular rate. Regular rhythm. No notable murmur. No JVD. RESPIRATORY: No respiratory distress. Slight increased work of breathing. She will pause speaking occasionally. But not markedly dyspneic. I can hear mild wheezing initially in the room. She has wheezing expiratory which is light breaths. When I have her take a deep breath is it induces a significant coughing episode and her wheezing gets tight. But she does not desaturate with that. Her saturations run anywhere 94 to 98% on room air showing no significant hypoxia. GASTROINTESTINAL: Obese but does not appear to be distended. Bowel sounds are normal. No tenderness. No guarding. No rebound. No palpable mass. No bruit is heard. GENITOURINARY: No tenderness over the bladder. No CVA tenderness. MUSCULOSKELETAL: Atraumatic. No peripheral edema. No cord. No tenderness along the deep venous system. No asymmetry. No distended veins. NEUROLOGICAL: Patient is alert and appropriate. No focal deficit noted. SKIN: No noted rashes. No diaphoresis. PSYCHIATRIC: Patient is calm. Mood is appropriate. Const Vital Signs: 04/20/23 18:29 04/20/23 20:04 04/20/23 20:04 Temperature 97.9 F 97.8 F Temperature Source Temporal Temporal Pulse Rate 95 87 Respiratory Rate 18 20 H Respiratory Effort Respiratory Depth Respiratory Pattern Blood Pressure 140/87 H 123/61 H Blood Pressure Mean 104 81 Pulse Ox 98 100 Oxygen Delivery Method Room Air Room Air 04/20/23 20:04 04/20/23 19:53 04/20/23 20:52 Temperature 97.9 F Temperature Source Temporal Pulse Rate 89 99 Respiratory Rate 20 H 21 H Respiratory Effort Normal Respiratory Depth Normal Respiratory Pattern Tachypnea Normal Blood Pressure 102/98 H Blood Pressure Mean 99 Pulse Ox 93 Oxygen Delivery Method Room Air MDM MDM MDM Narrative Medical decision making narrative: Patient CBC shows a high white count but this is likely due to 2 cycles of steroids. Minimal anemia. Platelets are normal. Electrolytes show no marked abnormalities. Even with the steroids her glucose is only 85. Plan up interpretation of her PA and lateral chest x-ray show changes consistent with body habitus but no obvious infiltrate. Cardiac silhouette looks normal. Final reading is similar. We walked the patient. She dropped about 91%. She did feel weak she did get dyspneic. But she recovered within about 5 or so minutes of getting back to the room. My concern is not that she is dropping to a dangerously low hypoxic level. But she has received 2 courses of antibiotics 2 courses of steroids and is still having symptoms. Even after her breathing treatments here she is still wheezing. I think this represents failure of outpatient therapy. I think admission pulmonary management, IV steroids may be in her benefit. Hospitalist is contacted. Lab Data Attestation: I reviewed the patient's lab results. Labs: Laboratory Results - last 24 hr 04/20/23 20:00 WBC 22.7 H RBC 4.87 Hgb 11.9 L Hct 39.4 MCV 80.9 L MCH 24.4 L MCHC 30.2 L RDW Std Deviation 56.1 H RDW Coeff of Thony 19.5 H Plt Count 378 MPV 10.2 Immature Gran % (Auto) 0.600 Neut % (Auto) 69.0 Lymph % (Auto) 23.0 Mclean % (Auto) 6.7 Eos % (Auto) 0.5 Baso % (Auto) 0.2 Absolute Neuts (auto) 15.7 H Absolute Lymphs (auto) 5.21 H Nucleated RBC % 0 Differential Comment SCANNED Diff Path Review May foll Reactive Lymphocytes 1+ Sodium 136 Potassium 3.7 Chloride 103 Carbon Dioxide 28.0 Anion Gap 5 BUN 11 Creatinine 0.60 Estim Creat Clear Calc 140.17 Est GFR (MDRD) Af Amer 147 Est GFR (MDRD) Non-Af 121 BUN/Creatinine Ratio 18.5 Glucose 85 Calcium 9.0 Radiography Diagnostic Testing: Clinical Impression(s) from Imaging Studies Chest X-Ray 04/20/23 20:29 IMPRESSION: No radiographic evidence of acute cardiopulmonary disease. Electronically Signed: Chuy Napier DO at 20:55 EDT , Management Discussion w/another healthcare provider: Hospitalist Discharge Plan Dx/Rx/DC Orders Clinical Impression: COPD with acute exacerbation, Acute dyspnea, Failure of outpatient treatment Disposition Disposition: Acute Care Hospital [facility]
[2023-04-20] MEDS: Albuterol 2.5 MG/3 ML VIAL.NEB. INHALATION (19:53)
[2023-04-20] MEDS: Ipratropium/Albuterol Sulfate 3 ML AMPUL.NEB INHALATION (19:53)
[2023-04-20] MEDS: MethylPREDNISolone 125 MG/2 ML Vial IV (20:11)
[2023-04-20 20:15] LABS: Absolute Lymphocyte Count 5.21 X10^3/uL (0.83-4.51); Absolute Neutrophil Count 15.7 X10^3/uL (2.0-7.7); Basophil# 0.04 X10^3/uL; Basophil% 0.2 % (0-1); Eosinophil# 0.12 X10^3/uL; Eosinophils% 0.5 % (0-5); Hematocrit 39.4 % (37-47); Hemoglobin 11.9 g/dL (12.0-15.0); Lymphocyte # 5.21 X10^3/ul (0.83-4.51); Mean Corp Hgb Conc 30.2 g/dL (32-36); Mean Corpuscular Hgb 24.4 pg (27.0-32.0); Mean Corpuscular Volume 80.9 fL (81-99); Mean Platelet Vol. 10.2 fl (6.2-12.0); Monocyte# 1.51 X10^3/uL; Monocyte% 6.7 % (0-10); NRBC Flagged by Analyzer 0 % (0-5); Neutrophil # 15.65 X10^3/uL (2.7-7.7); POSITIVE DIFFERENTIAL YES; POSITIVE MORPHOLOGY YES; Platelet Count 378 K/mm3 (150-450); RBC Distribution Width CV 19.5 % (11.6-14.6); RBC Distribution Width SD 56.1 fl (35.1-43.9); Red Blood Count 4.87 M/mm3 (4.2-5.4); White Blood Count 22.7 K/mm3 (4.4-11.0)
[2023-04-20 20:17] LABS: Differential Indicated SCAN CRITERIA MET
--- NOTE | 2023-04-20 20:19 | CPS ---
x1 Albuterol given to pt. in ER as well
[2023-04-20 20:28] LABS: Anion Gap 5 (5-15); BUN 11 mg/dL (7-18); BUN/Creat Ratio 18.5 RATIO (10-20); Chloride 103 mmol/L (98-107); EST Glomerular Filtration Rate 121 mL/min (>60); Est Glom Filt Rate - Afr Amer 147 mL/min (>60); Estimated Creatinine Clearance 140.17 ml/min; Glucose 85 mg/dL (74-106); Potassium 3.7 mmol/L (3.5-5.1); Sodium Level 136 mmol/L (136-145)
--- NOTE | 2023-04-20 20:29 | RAD_ITS ---
EXAM: XR CHEST, 2 VIEWS CLINICAL INDICATION: SOB TECHNIQUE: Frontal and lateral views of the chest. COMPARISON: 04/07/2023 FINDINGS: LUNGS AND PLEURAL SPACES: No significant abnormality. No consolidation or edema. No pneumothorax. No effusion. HEART: No significant abnormality. Cardiac silhouette not enlarged. MEDIASTINUM: Central airways and mediastinal contour are unremarkable. BONES/JOINTS: No significant abnormality. SOFT TISSUES: No significant abnormality. RAD/Chest PA and Lateral IMPRESSION: No radiographic evidence of acute cardiopulmonary disease. Electronically Signed: Chuy Napier DO at 20:55 EDT ,
[2023-04-20 20:35] LABS: Differential Comment SCANNED; Reactive Lymphocyte 1+
--- NOTE | 2023-04-20 21:54 | HP.PCM.HOS_ITS ---
HPI - General General Date of Admission: 04/20/23 Date of Service: 04/20/23 Chief Complaint: Dyspnea, wheezing, not improving despite 2 steroid rounds and abx x 2. HPI Narrative The patient is a 38 y/o F w/ PMHx: Tobacco use, Chronic microcytic anemia, Morbid obesity, ZANA, Migraines, Anxiety and Depression/Panic attacks/Bipolar disorder, Hypothyroidism who presents to the [facility] ED on 04/20/23 with history of 2 weeks of ongoing cough, wheezing, malaise and fatigue with evaluation in the ED at that time and start on steroid as well as doxycycline with self attempt to decrease her cigarette usage unfortunately not improving with evaluation also at [facility] with diagnosis of bronchitis also placed at that time and azithromycin reportedly having 1 day left in addition to another dose of steroids which she has been taking with still ongoing wheezing and coughing with no fevers or chills nor any marked sputum production but given ongoing debility and not improving prompted ED evaluation. Report prior to becoming ill her mother was also ill with a very mild upper respiratory type infection but hers abated. Work-up in the ED included T97.9, heart rate 95, BP 140/87, respiratory rate 18, initially 98% on room air with most recent vitals heart rate 99, BP 102/98, respiratory rate 21, 93% on room air, CBC with WBC 22.7, hemoglobin 1.9, platelet 378 with left shift and lymphocytosis, BMP unremarkable, chest x-ray with no acute cardiopulmonary findings, rapid SARS COVID and antigen negative. In the ED patient administered Solu-Medrol 125 mg IV x1, DuoNeb therapy as well as albuterol. [facility] Medical History (Updated 04/20/23 @ 21:[address] Mitali Moncada MD) Anemia Anxiety Bipolar depression manic phase Bipolar disorder Chronic cough Chronic low back pain COPD (chronic obstructive pulmonary disease) COVID-19 Edentulous Herniated disc History of brain disorder Hydocephalus Hypothyroidism Kidney stones Obesity ZANA (obstructive sleep apnea) Panic attacks Smoker Thyromegaly Wears glasses Home Medications acetaminophen 500 mg tablet (Tylenol Extra Strength) 500 mg PO Q6H PRN Fever 04/28/22 [History Last Taken Unknown] ibuprofen 200 mg capsule 600 mg PO TID PRN Pain 04/28/22 [History Last Taken Unknown] hydroxyzine HCl 10 mg tablet 10 mg PO TID PRN anxiety #90 tabs 06/08/22 [Rx Last Taken Unknown] escitalopram oxalate 20 mg tablet 20 mg PO DAILY DEPRESSION #90 tabs 12/21/22 [Rx Last Taken Unknown] levothyroxine 50 mcg tablet 50 mcg PO DAILY HYPOTHYROIDISM #90 tabs 12/22/22 [Rx Last Taken Unknown] albuterol sulfate 90 mcg/actuation aerosol inhaler (Ventolin HFA) 2 puff inhalation Q6H PRN shortness of breath or wheezing #8.5 grams 02/08/23 [Rx Last Taken Unknown] albuterol sulfate 90 mcg/actuation aerosol inhaler 2 puff inhalation 6XD PRN shortness of breath or wheezing #6.7 grams 04/07/23 [Rx Last Taken Unknown] albuterol sulfate 90 mcg/actuation aerosol inhaler (Ventolin HFA) 1 - 2 puff inhalation Q4H PRN PRN Wheezing ##1 04/07/23 [Rx Last Taken Unknown] azithromycin 250 mg tablet See Rx Instructions PO .COMPLEX #6 tabs 04/07/23 [Rx Last Taken Unknown] doxycycline monohydrate 100 mg capsule 100 mg PO BID #14 CAPSULES 04/07/23 [Rx Last Taken Unknown] prednisone 10 mg tablet 10 mg PO UD #29 tabs 04/07/23 [Rx Last Taken Unknown] Allergy/AdvReac Type Severity Reaction Status Date / Time ceftriaxone sodium Allergy Hives Verified 04/20/23 18:29 [From Rocephin] tramadol Allergy Hives Verified 04/20/23 18:29 bupropion HCl AdvReac MAKES Verified 04/20/23 18:29 [From Wellbutrin] ANXIETY WORSE Family History Grandmother Asthma Thyroid disorder Mother Asthma Thyroid disorder COPD (chronic obstructive pulmonary disease) Aunt Asthma Heart disease Hypertension Thyroid disorder Emphysema, unspecified Grandfather Asthma Diabetes Hypertension Hyperlipidemia COPD (chronic obstructive pulmonary disease) Surgical History D&C History of 3 sections History of ankle surgery History of bilateral tubal ligation History of cholecystectomy History of tonsillectomy left ankle ligament repair Social History (Updated 04/20/23 @ 22:[address] Mitali Moncada MD) household members: family housing: house number of children: 3 current occupational status: unemployed pets and animals: Yes Smoking Status: Current every day smoker tobacco type: cigarettes Smoking packs per day: 0.5 Smoking cigarettes per day: 10.0 second hand exposure: Yes alcohol intake: never substance use type: does not use caffeine: No what type of physical activity do you participate in: walking frequency: daily seatbelt use: always do you feel safe at home: Yes ROS ROS Narrative Admission Review of Systems: CONSTITUTIONAL: No weight loss, fever, chills, + weakness or fatigue. HEENT: + congestion, rhinorrhea, sore throat. Eyes: No visual loss, blurred vision, double vision or yellow sclerae. Ears, Nose, Throat: No hearing loss. SKIN: No rash or itching, lesions, wounds. CARDIOVASCULAR: + Pleuritic discomfort, worse with coughing bouts, chronic mild lower extremity peripheral edema. No palpitations, orthopnea, syncopal events. RESPIRATORY: + Shortness of breath, cough without marked sputum, wheezing. No hemoptysis. GASTROINTESTINAL: + Anorexia. No nausea, vomiting or diarrhea, abdominal pain, melena, BRBPR. GENITOURINARY: No dysuria, frequency, urgency or retention. NEUROLOGICAL: No headache, dizziness, syncope, paralysis, ataxia, numbness or tingling in the extremities, focal weakness, change in bowel or bladder control, seizure. MUSCULOSKELETAL: + muscle, back pain, joint pain or stiffness. HEMATOLOGIC: + anemia. LYMPHATICS: No enlarged nodes. No history of splenectomy. PSYCHIATRIC: + history of depression or anxiety. ENDOCRINOLOGIC: No reports of sweating, cold or heat intolerance. No polyuria or polydipsia. ALLERGIES: + History of rhinitis and hives. Vital Signs Vital Signs Vital Signs: 04/20/23 18:29 04/20/23 20:04 04/20/23 20:04 Temperature 97.9 F 97.8 F Temperature Source Temporal Temporal Pulse Rate 95 87 Respiratory Rate 18 20 H Respiratory Effort Respiratory Depth Respiratory Pattern Blood Pressure 140/87 H 123/61 H Blood Pressure Mean 104 81 Pulse Ox 98 100 Oxygen Delivery Method Room Air Room Air 04/20/23 20:04 04/20/23 19:53 04/20/23 20:52 Temperature 97.9 F Temperature Source Temporal Pulse Rate 89 99 Respiratory Rate 20 H 21 H Respiratory Effort Normal Respiratory Depth Normal Respiratory Pattern Tachypnea Normal Blood Pressure 102/98 H Blood Pressure Mean 99 Pulse Ox 93 Oxygen Delivery Method Room Air Weight Weight: 356 lb 12.8 oz Body Mass Index (BMI) 51.2 Physical Exam Narrative Physical Examination: General: Awake, alert, oriented x 3 and cooperative, seated upright in the ED bed, fatigued, with any deep inspiratory effort immediate coughing fits. Skin: Normal color, normal turgor, no icterus, no cyanosis. HEENT: AT/NC, EOMI, PERRLA, dry MM, no carotid bruits or JVD noted; however, thickened neck makes evaluation difficult. Lungs: Significantly diminished, greater bases, coughing fits with any deep inspiratory effort, occasional expiratory wheeze but very distant, no rales or rhonchi, mild tachypnea but no respiratory distress. Heart: Mildly tachycardic with regular rhythm; no gallop, rub audible. Abdomen: Soft, morbidly obese, NTTP, distant BS, difficulty discerning distention and HSM given habitus. Extremities: No cyanosis, no clubbing, reported chronic peripheral edema but no pitting edema present. Neurological: Patient awake, alert, oriented as noted, cognitive function intact; pupils equally reactive to light and accommodation, cranial nerves grossly normal, moving all 4 extremities, no focal deficits, strength severely globally decreased secondary to acute presentation. Psychiatric: Affect appears fatigued, no acute evidence of depressive or anxiety feelings but notable underlying psychiatric history. Results Lab / Micro Data 04/20/23 20:00 04/20/23 20:00 Labs: Laboratory Results - last 24 hr 04/20/23 20:00: WBC 22.7 H, RBC 4.87, Hgb 11.9 L, Hct 39.4, MCV 80.9 L, MCH 24.4 L, MCHC 30.2 L, RDW Std Deviation 56.1 H, RDW Coeff of Thony 19.5 H, Plt Count 378, MPV 10.2, Immature Gran % (Auto) 0.600, Neut % (Auto) 69.0, Lymph % (Auto) 23.0, [place] % (Auto) 6.7, Eos % (Auto) 0.5, Baso % (Auto) 0.2, Absolute Neuts (auto) 15.7 H, Absolute Lymphs (auto) 5.21 H, Nucleated RBC % 0, Differential Comment SCANNED, Diff Path Review May foll, Reactive Lymphocytes 1+, Sodium 136, Potassium 3.7, Chloride 103, Carbon Dioxide 28.0, Anion Gap 5, BUN 11, Creatinine 0.60, Estim Creat Clear Calc 140.17, Est GFR (MDRD) Af Amer 147, Est GFR (MDRD) Non-Af 121, BUN/Creatinine Ratio 18.5, Glucose 85, Calcium 9.0 Micro: Microbiology 04/20/23 20:05 Nasal Secretion SARS-CoV-2 & FLU Antigen (Rapid) - Final Radiology Impression Chest X-Ray 04/20/23 20:29 IMPRESSION: No radiographic evidence of acute cardiopulmonary disease. Electronically Signed: Chuy Napier DO at 20:55 EDT , Assessment & Plan Assessment/Plan (1) COPD exacerbation: PLAN: Plan The patient is a 38 y/o F w/ PMHx: Tobacco use, Chronic microcytic anemia, Morbid obesity, ZANA, Migraines, Anxiety and Depression/Panic attacks/Bipolar disorder, Hypothyroidism who presents to the [facility] ED on 04/20/23 with history of 2 weeks of ongoing cough, wheezing, malaise and fatigue with evaluation in the ED at that time and start on steroid as well as doxycycline with self attempt to decrease her cigarette usage unfortunately not improving with evaluation also at [facility] with diagnosis of bronchitis also placed at that time and azithromycin reportedly having 1 day left in addition to another dose of steroids which she has been taking with still ongoing wheezing and coughing with no fevers or chills nor any marked sputum production but given ongoing debility and not improving prompted ED evaluation. #1. Acute on Chronic COPD exacerbation with acute bronchitis, failed outpatient therapy/treatment: Leukocytosis likely related with steroid usage at this point, chest x-ray with no acute findings, will admit to medical surgical floor, continue ATC duonebs, PRN albuterol, IV methylprednisolone, HOB, IS parameters, will obtain sputum Cx, respiratory viral panel, COVID PCR given timeline, procalcitonin, will hold on immediately abx therapy but low threshold to add if appropriate. #2. Chronic microcytic anemia: Admission hemoglobin 11.9, MCV 80.9, baseline hemoglobin noted previously primarily 10 range however last noted 12/21/2022 hemoglobin 13, encourage continued outpatient follow-up and assessment. #3. Anxiety and depression/Bipolar disorder/Panic attacks: We will continue patient home escitalopram as well as hydroxyzine regimen. #4. Hypothyroidism: We will continue patient home levothyroxine regimen. #5. Morbid Obesity: Weight loss and lifestyle changes encouraged. #6. Chronic migraines: Uses ibuprofen as needed, will have available if necessary. #7. Tobacco Abuse: Encouraged cessation, inpatient consultation per RT, NR if desired. #8. ZANA: CPAP q HS. Had been complaint in the past but during a move lost her CPAP, encouraged her to review with CM/SW to set-up again. #9. DVT prophylaxis: Lovenox. Charges/Coding Visit Charges Inpatient E&M: 14603 Init Hosp L3
[2023-04-20 23:10] LABS: Procalcitonin < 0.01 ng/mL (0.00-0.09)
[2023-04-20] MEDS: 0.9% Normal Saline (1000mL) 1,000 ML 100 ML IV (23:14)
[2023-04-20] MEDS: 0.9% Saline Lock 10 ML Syringe IV (23:16)
[2023-04-20] MEDS: Enoxaparin 40 MG/0.4 ML Syringe SC (23:41)
[2023-04-21] VITALS (15 sets, daily range): BP systolic 123–143; BP diastolic 74–93; PULSE 82–94; RESP 16–20; TEMP 36.4–37; O2SAT 90–95; BMI 51.2
[2023-04-21] MEDS: Ipratropium/Albuterol Sulfate 3 ML AMPUL.NEB INHALATION ×6 (00:01→19:24)
[2023-04-21] MEDS: guaiFENesin 10 ML UDC (200MG/10ML) 20 ML PO ×4 (00:18→21:47)
[2023-04-21] MEDS: Levothyroxine 50 MCG Tablet PO (05:30)
[2023-04-21 06:00] LABS: Absolute Lymphocyte Count 1.46 X10^3/uL (0.83-4.51); Absolute Neutrophil Count 15.5 X10^3/uL (2.0-7.7); Basophil# 0.02 X10^3/uL; Basophil% 0.1 % (0-1); Eosinophil# 0.02 X10^3/uL; Eosinophils% 0.1 % (0-5); Hematocrit 40.8 % (37-47); Hemoglobin 12.4 g/dL (12.0-15.0); Lymphocyte # 1.46 X10^3/ul (0.83-4.51); Lymphocyte % 8.4 % (19-41); Mean Corp Hgb Conc 30.4 g/dL (32-36); Mean Corpuscular Hgb 25.2 pg (27.0-32.0); Mean Corpuscular Volume 82.8 fL (81-99); Mean Platelet Vol. 9.9 fl (6.2-12.0); Monocyte# 0.18 X10^3/uL; NRBC Flagged by Analyzer 0 % (0-5); Neutrophil # 15.47 X10^3/uL (2.7-7.7); Neutrophil % 89.5 % (47-70); Platelet Count 364 K/mm3 (150-450); RBC Distribution Width CV 19.3 % (11.6-14.6); RBC Distribution Width SD 57.1 fl (35.1-43.9); Red Blood Count 4.93 M/mm3 (4.2-5.4); White Blood Count 17.3 K/mm3 (4.4-11.0)
[2023-04-21 06:43] LABS: ALB/GLOB Ratio 0.8 RATIO (0.9-2.4); AST(SGOT) 10 U/L (15-37); Alanine Aminotransfer ALT/SGPT 34 U/L (13-56); Albumin, Serum 3.4 g/dL (3.2-5.0); Alkaline Phosphatase 100 U/L (45-117); Anion Gap 8 (5-15); BUN 12 mg/dL (7-18); BUN/Creat Ratio 18.9 RATIO (10-20); Calcium,Total 9.4 mg/dL (8.5-10.1); Chloride 105 mmol/L (98-107); Creatinine, Serum 0.64 mg/dL (0.55-1.02); EST Glomerular Filtration Rate 112 mL/min (>60); Est Glom Filt Rate - Afr Amer 136 mL/min (>60); Estimated Creatinine Clearance 131.41 ml/min; Globulin 4.4 g/dL (2.2-4.2); Glucose 139 mg/dL (74-106); Potassium 4.1 mmol/L (3.5-5.1); Protein, Total 7.8 g/dL (6.4-8.2); Sodium Level 137 mmol/L (136-145)
--- NOTE | 2023-04-21 08:34 | PN.HOSP_ITS ---
Reason for Visit Reason for Visit: Diagnoses Chronic obstructive pulmonary disease with (acute) exacerbation (04/20/23) Subjective Subjective Follow-up for COPD/asthma exacerbation Objective Data Objective Data Vital Signs: Vital Signs Temp Pulse Resp BP Pulse Ox O2 Del Method O2 Flow Rate 97.7 F L 82 18 143/93 H 93 Nasal Cannula 2 04/21/23 05:28 04/21/23 05:44 04/21/23 05:44 04/21/23 05:28 04/21/23 05:35 04/21/23 05:35 04/21/23 05:35 Oxygen Flow Rate (L/min) 2 Oxygen Delivery Method Nasal Cannula Weight: 357 lb 2.382 oz Body Mass Index (BMI) 51.2 Lab / Micro Data 04/21/23 05:05 04/21/23 05:05 Labs: Laboratory Results - last 24 hr 04/20/23 20:00: WBC 22.7 H, RBC 4.87, Hgb 11.9 L, Hct 39.4, MCV 80.9 L, MCH 24.4 L, MCHC 30.2 L, RDW Std Deviation 56.1 H, RDW Coeff of Thony 19.5 H, Plt Count 378, MPV 10.2, Immature Gran % (Auto) 0.600, Neut % (Auto) 69.0, Lymph % (Auto) 23.0, [place] % (Auto) 6.7, Eos % (Auto) 0.5, Baso % (Auto) 0.2, Absolute Neuts (auto) 15.7 H, Absolute Lymphs (auto) 5.21 H, Nucleated RBC % 0, Differential Comment SCANNED, Diff Path Review May foll, Reactive Lymphocytes 1+, Sodium 136, Potassium 3.7, Chloride 103, Carbon Dioxide 28.0, Anion Gap 5, BUN 11, Creatinine 0.60, Estim Creat Clear Calc 140.17, Est GFR (MDRD) Af Amer 147, Est GFR (MDRD) Non-Af 121, BUN/Creatinine Ratio 18.5, Glucose 85, Calcium 9.0 04/20/23 22:27: Procalcitonin < 0.01 04/21/23 05:05: WBC 17.3 H, RBC 4.93, Hgb 12.4, Hct 40.8, MCV 82.8, MCH 25.2 L, MCHC 30.4 L, RDW Std Deviation 57.1 H, RDW Coeff of Thony 19.3 H, Plt Count 364, MPV 9.9, Immature Gran % (Auto) 0.900, Neut % (Auto) 89.5 H, Lymph % (Auto) 8.4 L, [place] % (Auto) 1.0, Eos % (Auto) 0.1, Baso % (Auto) 0.1, Absolute Neuts (auto) 15.5 H, Absolute Lymphs (auto) 1.46, Nucleated RBC % 0, Sodium 137, Potassium 4.1, Chloride 105, Carbon Dioxide 24.0, Anion Gap 8, BUN 12, Creatinine 0.64, Estim Creat Clear Calc 131.41, Est GFR (MDRD) Af Amer 136, Est GFR (MDRD) Non-Af 112, BUN/Creatinine Ratio 18.9, Glucose 139 H, Calcium 9.4, Total Bilirubin 0.40, AST 10 L, ALT 34, Alkaline Phosphatase 100, Total Protein 7.8, Albumin 3.4, Globulin 4.4 H, Albumin/Globulin Ratio 0.8 L Micro: Microbiology 04/20/23 22:10 Mucosa - Nose Coronavirus COVID-19 PCR - Final 04/20/23 22:10 Mucosa - Nose Respiratory Panel (PCR) - Final 04/20/23 20:05 Nasal Secretion SARS-CoV-2 & FLU Antigen (Rapid) - Final Radiography Diagnostic Testing: Radiology Impression Chest X-Ray 04/20/23 20:29 IMPRESSION: No radiographic evidence of acute cardiopulmonary disease. Electronically Signed: Chuy Napier DO at 20:55 EDT , Physical Exam Narrative Seen and examined. Patient is still short of breath and wheezing. She states she has history of asthma/COPD overlap . She is still smokes less than a pack per day. No chest pressure or mild chest tightness and congestion No fever. Physical exam General: Alert, Oriented x3, Cooperative, morbid obesity BMI 51.2 kg/m? HEENT: Flushing of the face. Atraumatic, PERRLA, EOMI, Normocephalic Oral: Oral mucosa dry. No Gingival or Mucosal Lesions/ Ulcerations Neck: Supple, No JVD, Negative Carotid Bruits Lungs: Air entry diminished in bilateral lung bases. Bilateral wheezing. Mild dyspnea at rest. Cardiovascular: Regular rate, Regular Rhythm, Normal S1, Normal S2, No murmurs Abdomen: Bowel Sounds Present, Soft, Non Tender, Non-Distended : No renal angle tenderness. No suprapubic tenderness. Extremities: No edema, Capillary Refill Less than 3 Seconds Skin: No rashes, No breakdown Musculoskeletal: Chronic right ankle injury/fracture 5 years ago. No Tenderness to Palpation of Joints or Extremities Neurological: Cranial nerves II-XII grossly intact, DTR 2+/4. No acute focal neurological deficit. Psych/Mental Status: Normal Affect, Appropriate. Assessment & Plan Assessment/Plan (1) COPD exacerbation: PLAN: Plan The patient is a 38 y/o F is admitted for cough, wheezing and shortness of breath but no fever or chills for about 2 weeks. She had multiple ED visit here in [facility] and failed outpatient treatment and steroid treatment #1. COPD/asthma exacerbation with acute bronchitis, failed outpatient treatment: Patient is being admitted in PCU. Patient is being managed on sche duled bronchodilator, IV Solu-Medrol, incentive spirometry and PEP. Respiratory panel negative. COVID flu antigen and PCR negative. #2. Chronic microcytic anemia: Admission hemoglobin 11.9, MCV 80.9, repeat hemoglobin 12.4. Patient on baseline hemoglobin. #3. Anxiety and depression/Bipolar disorder/Panic attacks: continue patient home escitalopram as well as hydroxyzine regimen. #4. Hypothyroidism: continue patient home levothyroxine regimen. #5. Morbid Obesity: Weight loss and lifestyle changes encouraged. #6. Chronic migraines: Uses ibuprofen as needed, will have available if necessary. #7. Tobacco Abuse: Encouraged cessation, inpatient consultation per RT, NR if desired. #8. ZANA: CPAP q HS. Had been complaint in the past but during a move lost her CPAP, encouraged her to review with CM/SW to set-up again. #9. DVT prophylaxis: Lovenox. Charges/Coding Visit Charges Inpatient E&M: 10160 Subs Hosp L2
[2023-04-21] MEDS: Escitalopram Oxalate 20 MG Tablet PO (09:30)
[2023-04-21] MEDS: Enoxaparin 40 MG/0.4 ML Syringe SC ×2 (09:30→21:48)
--- NOTE | 2023-04-21 10:15 | CASEMGMT ---
RN LOR Face to Face with patient for initial transition planning/care coordination assessment. RN CM introduced self and role at [facility]. Patient lying in bed, alert and oriented. Patient willing to participate in assessment and is able to answer all questions appropriately. Care providers, pharmacy, and demographics verified. Patient wishes to discharge home, denies need for home health at this time. Patient states he has no further needs or concerns at this time. CM to follow for discharge planning needs that may arise. PCP: [facility] Specialists: none Preferred Pharmacy: [facility] Insurance: [employer] Prescription Benefit: yes Living Will/HPOA: none LNOK: Living Arrangements: Patient lives with in a mobile home with 7 steps and railing to enter. Patient states she is independent at home. Transportation: self, mother DME/HHC: [facility] has shower chair, raised toilet, grab bars, nebulizer at home. Patient prefers [employer] for DME. No previous HHC or SNF. Disposition Plan: Patient to discharge home with family support and follow-up plans in place. Will monitor for home oxygen. Nereida MCGEE, RN, CM
--- NOTE | 2023-04-21 11:53 | CHAPLAIN ---
Type of Pastoral Visit _x__ Initial Visit ___ Follow-up Visit ___ On-call Visit ___ General Patient Visit ___ Spiritual Assessment ___ Family Conference ___ Bereavement ___ Rapid Response ___ Code Blue ___ Other (describe below) Pastoral Care Referral From _x__ Patient ___ Family ___ Nurse ___ Physician ___ Smt Technician ___ Community Service Manager ___ Other (describe below) Sacrament/Intervention _x__ Active listening ___ Anointing ___ Buddhism ___ Bereavement ___ Communion ___ [place] exploration ___ ___ Life review _x__ Prayer ___ Reconciliation ___ Sacrament of Sick _x__ Supportive presence ___ Wedding ___ Other (describe below) Pastoral Comments time given to patient who speaks of frustrations and concerns over health issues that have not been resolving; pt is weary and welcomes emotional support and prayers
[2023-04-21 13:29] LABS: Pathologist Review Reviewed
[2023-04-21] MEDS: Methylprednisolone Sod Succ 40 MG/ML VIAL IV ×2 (14:46→21:48)
[2023-04-21] MEDS: 0.9% Saline Lock 10 ML Syringe IV ×2 (14:48→21:50)
[2023-04-22] VITALS (10 sets, daily range): BP systolic 126–142; BP diastolic 74–89; PULSE 74–105; RESP 16–22; TEMP 36.7–36.9; O2SAT 91–97; BMI 51.7
--- NOTE | 2023-04-22 03:45 | CPS ---
Pt has worn home CPAP in years, does not want to wear hospital CPAP.
[2023-04-22] MEDS: Albuterol 2.5 MG/3 ML VIAL.NEB. INHALATION ×2 (04:33→13:09)
[2023-04-22] MEDS: 0.9% Saline Lock 10 ML Syringe IV ×2 (05:41→14:34)
[2023-04-22] MEDS: Levothyroxine 50 MCG Tablet PO (05:41)
[2023-04-22] MEDS: Methylprednisolone Sod Succ 40 MG/ML VIAL IV ×2 (05:41→14:33)
[2023-04-22] MEDS: Ipratropium/Albuterol Sulfate 3 ML AMPUL.NEB INHALATION ×2 (07:09→11:10)
[2023-04-22] MEDS: guaiFENesin 10 ML UDC (200MG/10ML) 20 ML PO (09:56)
[2023-04-22] MEDS: Glucerna Shake 120 ML LIQUID PO (10:00)
--- NOTE | 2023-04-22 10:35 | DCINST_ITS ---
Discharge Instructions Diet Discharge Diet: No restrictions Activity Discharge Activity: Return to Normal Activity Weight Bearing Status: Weight bearing as tolerated Dressing / Incision Call your doctor if you observe: Fever of 101 or Higher, Coldness, Increased Pain, Numbness or Tingling, Change in Color, Inability to urinate, Inability to have a bowel movement, Using more than 1 pad per hour, Shortness of breath, Dizziness, Fainting spells, Swelling in the ankles, Chest pain, Prolonged hiccupping, Increased palpitations (irregular heartbeat) and Calf discomfort Follow Up Care When: IN 2 WEEKS Test Results: Test results from this visit will be discussed in further detail at your follow- up appointment, if applicable. Discharge Plan Admission Admit Date/Time: 04/20/23 21:55 Primary Reason for Your Visit: Acute COPD/asthma exacerbation Attending Provider: Jak Wright Primary Care Provider: Blaine Gage Consulting Providers: Mitali Moncada Discharge Orders/Prescriptions Prescriptions: New sennosides-docusate sodium [Stool Softener-Stimulant Laxat] 8.6-50 mg Tablet 2 tab PO BID PRN PRN (Reason: Constipation) Qty: 0 0RF Chloraseptic Sore Throat 6-10 mg Lozenge 1 veronica mucous membrane Q2H PRN PRN (Reason: SORE THROAT) Qty: 0 0RF dextromethorphan-guaifenesin [Mucinex DM] 60-1,200 mg tablet extended release 12 hr 1 tab PO Q12H 7 Days Qty: 14 0RF Continued acetaminophen [Tylenol Extra Strength] 500 mg tablet 500 mg PO Q6H PRN (Reason: Fever) escitalopram oxalate 20 mg tablet 20 mg PO DAILY Qty: 90 3RF albuterol sulfate 90 mcg/actuation HFA aerosol inhaler 2 puff inhalation 6XD PRN (Reason: shortness of breath or wheezing) Qty: 6.7 0RF albuterol sulfate [Ventolin HFA] 90 mcg/actuation HFA aerosol inhaler 1 - 2 puff inhalation Q4H PRN PRN (Reason: Wheezing) Qty: 1 0RF prednisone 10 mg tablet 10 mg PO UD Qty: 40 0RF Rx Instructions: Take 4 tablets daily for 4 days, then 3 daily for 4 days, then 2 daily for 4 days, then 1 day for 4 days hydroxyzine HCl 10 mg tablet 10 mg PO TID PRN (Reason: anxiety) Qty: 90 0RF levothyroxine 50 mcg tablet 50 mcg PO DAILY Qty: 90 1RF albuterol sulfate [Ventolin HFA] 90 mcg/actuation HFA aerosol inhaler 2 puff inhalation Q6H PRN (Reason: shortness of breath or wheezing) Qty: 8.5 1RF Discontinued azithromycin 250 mg tablet See Rx Instructions PO .COMPLEX Qty: 6 0RF Rx Instructions: take 500 mg today (day 1), then 250 mg for 4 days (days 2-5) PO doxycycline monohydrate 100 mg capsule 100 mg PO BID Qty: 14 0RF Referrals / Follow Up: Blaine Gage, CABLE TELEVISION PROGRAM DIRECTOR-C [Primary Care Provider] - Michael Adler DO [Med Staff - Active Staff] - Within 2 Weeks (For COPD/asthma exacerbation) Disposition Disposition (needs filled in before D/C Order can be placed): Home, Self Care
[2023-04-22] MEDS: Escitalopram Oxalate 20 MG Tablet PO (11:36)
[2023-04-22] MEDS: Enoxaparin 40 MG/0.4 ML Syringe SC (11:37)
--- NOTE | 2023-04-22 12:15 | PCM.DC.SUM ---
Providers Date of Admission: 04/20/23 Date of Discharge: 04/22/23 Primary Care Physician: PAN Arora Reason For Visit: COPD EXACERBATION Diagnosis Discharge Diagnosis (1) COPD exacerbation: Status: Chronic Code(s): J44.1 - Chronic obstructive pulmonary disease with (acute) exacerbation Plan The patient is a 38 y/o F is admitted for cough, wheezing and shortness of breath but no fever or chills for about 2 weeks. She had multiple ED visit here in [facility] and failed outpatient treatment and steroid treatment #1. COPD/asthma exacerbation with acute bronchitis, failed outpatient treatment: Patient is being admitted in PCU. Patient is being managed on scheduled bronchodilator, IV Solu-Medrol, incentive spirometry and PEP. Respiratory panel negative. COVID flu antigen and PCR negative. 04/22: Patient already completed azithromycin and doxycycline at home. Patient has DuoNeb nebulization, albuterol inhaler at home. Patient not on home oxygen and did not require while sitting. Home oxygen qualification. Prescription given for prolonged taper over 16 days. Patient follows our facility worker Dr. Adler advised to follow-up in 2 weeks. Continue incentive spirometry and Pep for 7 days. Patient will need PFT when her breathing is not normal baseline. #2. Chronic microcytic anemia: Admission hemoglobin 11.9, MCV 80.9, repeat hemoglobin 12.4. Patient on baseline hemoglobin. #3. Anxiety and depression/Bipolar disorder/Panic attacks: continue patient home escitalopram as well as hydroxyzine regimen. #4. Hypothyroidism: continue patient home levothyroxine regimen. #5. Morbid Obesity: Weight loss and lifestyle changes encouraged. #6. Chronic migraines: Uses ibuprofen as needed, will have available if necessary. #7. Tobacco Abuse: Encouraged cessation, inpatient consultation per RT, NR if desired. #8. ZANA: CPAP q HS. Had been complaint in the past but during a move lost her CPAP, encouraged her to review with CM/SW to set-up again. #9. DVT prophylaxis: Lovenox. Discharge medication reconciliation done. Discharge follow-up instructions completed. Discharge process discussed with the patient and all questions were answered to patient's satisfaction. Total time spent, exact 35 minutes on discharge meds reconciliation, examination, coordination of care with nurses and ancillary staff, review of imaging and blood test and discussion with the patient on follow-up instructions. Medications at Discharge Home Medications acetaminophen 500 mg tablet (Tylenol Extra Strength) 500 mg PO Q6H PRN Fever 04/28/22 hydroxyzine HCl 10 mg tablet 10 mg PO TID PRN anxiety #90 tabs 06/08/22 escitalopram oxalate 20 mg tablet 20 mg PO DAILY DEPRESSION #90 tabs 12/21/22 levothyroxine 50 mcg tablet 50 mcg PO DAILY HYPOTHYROIDISM #90 tabs 12/22/22 albuterol sulfate 90 mcg/actuation aerosol inhaler (Ventolin HFA) 2 puff inhalation Q6H PRN shortness of breath or wheezing #8.5 grams 02/08/23 albuterol sulfate 90 mcg/actuation aerosol inhaler 2 puff inhalation 6XD PRN shortness of breath or wheezing #6.7 grams 04/07/23 albuterol sulfate 90 mcg/actuation aerosol inhaler (Ventolin HFA) 1 - 2 puff inhalation Q4H PRN PRN Wheezing ##1 04/07/23 benzocaine 6 mg-menthol 10 mg lozenges (Chloraseptic Sore Throat) 1 veronica mucous membrane Q2H PRN PRN SORE THROAT #0 ea 04/22/23 dextromethorphan-guaifenesin ER 60 mg-1,200 mg tab,extend release,12hr (Mucinex DM) 1 tab PO Q12H 7 days #14 tabs 04/22/23 prednisone 10 mg tablet 10 mg PO UD #40 tabs 04/22/23 sennosides 8.6 mg-docusate sodium 50 mg tablet (Stool Softener-Stimulant Laxative) 2 tab PO BID PRN PRN Constipation #0 tabs 04/22/23 Physical Exam Narrative Seen and examined. Shortness of breath and wheezing is much improved. Denies chest tightness. Still has mild cough and wheezing. She states she has history of asthma/COPD overlap . She is still smokes less than a pack per day. No fever. Physical exam General: Alert, Oriented x3, Cooperative, morbid obesity BMI 51.2 kg/m? HEENT: Flushing of the face. Atraumatic, PERRLA, EOMI, Normocephalic Oral: Oral mucosa dry. No Gingival or Mucosal Lesions/ Ulcerations Neck: Supple, No JVD, Negative Carotid Bruits Lungs: Air entry diminished in bilateral lung bases. Mild wheezing. No hypoxia or tachypnea. Cardiovascular: Regular rate, Regular Rhythm, Normal S1, Normal S2, No murmurs Abdomen: Bowel Sounds Present, Soft, Non Tender, Non-Distended : No renal angle tenderness. No suprapubic tenderness. Extremities: No edema, Capillary Refill Less than 3 Seconds Skin: No rashes, No breakdown Musculoskeletal: Chronic right ankle injury/fracture 5 years ago. No Tenderness to Palpation of Joints or Extremities Neurological: Cranial nerves II-XII grossly intact, DTR 2+/4. No acute focal neurological deficit. Psych/Mental Status: Normal Affect, Appropriate. Weight / BMI Weight Weight: 361 lb 1.875 oz Body Mass Index (BMI) 51.7 ABG / Lab / Microbiology Data 04/21/23 05:05 04/21/23 05:05 Laboratory: Laboratory Results - last 24 hr 04/20/23 20:00: Diff Path Review Reviewed Microbiology: Microbiology 04/20/23 22:10 Mucosa - Nose Coronavirus COVID-19 PCR - Final 04/20/23 22:10 Mucosa - Nose Respiratory Panel (PCR) - Final 04/20/23 20:05 Nasal Secretion SARS-CoV-2 & FLU Antigen (Rapid) - Final D/C Instructions Discharge Diet: No restrictions Weight Bearing Status: Weight bearing as tolerated Call your doctor if you observe: Fever of 101 or Higher, Coldness, Increased Pain, Numbness or Tingling, Change in Color, Inability to urinate, Inability to have a bowel movement, Using more than 1 pad per hour, Shortness of breath, Dizziness, Fainting spells, Swelling in the ankles, Chest pain, Prolonged hiccupping, Increased palpitations (irregular heartbeat) and Calf discomfort When: IN 2 WEEKS Meaningful Use Info Meaningful Use Diagnoses (Choose all that apply): None applicable Discharge Plan Admission Admit Date/Time: 04/20/23 21:55 Primary Reason for Your Visit: Acute COPD/asthma exacerbation Attending Provider: Jak Wright Primary Care Provider: Blaine Gage Cory Consulting Providers: Mitali Moncada Discharge Orders/Prescriptions Prescriptions: New sennosides-docusate sodium [Stool Softener-Stimulant Laxat] 8.6-50 mg Tablet 2 tab PO BID PRN PRN (Reason: Constipation) Qty: 0 0RF Chloraseptic Sore Throat 6-10 mg Lozenge 1 veronica mucous membrane Q2H PRN PRN (Reason: SORE THROAT) Qty: 0 0RF dextromethorphan-guaifenesin [Mucinex DM] 60-1,200 mg tablet extended release 12 hr 1 tab PO Q12H 7 Days Qty: 14 0RF Continued acetaminophen [Tylenol Extra Strength] 500 mg tablet 500 mg PO Q6H PRN (Reason: Fever) escitalopram oxalate 20 mg tablet 20 mg PO DAILY Qty: 90 3RF albuterol sulfate 90 mcg/actuation HFA aerosol inhaler 2 puff inhalation 6XD PRN (Reason: shortness of breath or wheezing) Qty: 6.7 0RF albuterol sulfate [Ventolin HFA] 90 mcg/actuation HFA aerosol inhaler 1 - 2 puff inhalation Q4H PRN PRN (Reason: Wheezing) Qty: 1 0RF prednisone 10 mg tablet 10 mg PO UD Qty: 40 0RF Rx Instructions: Take 4 tablets daily for 4 days, then 3 daily for 4 days, then 2 daily for 4 days, then 1 day for 4 days hydroxyzine HCl 10 mg tablet 10 mg PO TID PRN (Reason: anxiety) Qty: 90 0RF levothyroxine 50 mcg tablet 50 mcg PO DAILY Qty: 90 1RF albuterol sulfate [Ventolin HFA] 90 mcg/actuation HFA aerosol inhaler 2 puff inhalation Q6H PRN (Reason: shortness of breath or wheezing) Qty: 8.5 1RF Discontinued azithromycin 250 mg tablet See Rx Instructions PO .COMPLEX Qty: 6 0RF Rx Instructions: take 500 mg today (day 1), then 250 mg for 4 days (days 2-5) PO doxycycline monohydrate 100 mg capsule 100 mg PO BID Qty: 14 0RF Referrals / Follow Up: Michael Adler DO [Med Staff - Active Staff] - Within 2 Weeks (For COPD/asthma exacerbation) Blaine Gage, [employer] OPERATOR-C [Primary Care Provider] - Disposition Disposition (needs filled in before D/C Order can be placed): Home, Self Care Charges/Coding Visit Charges Inpatient E&M: 03297 Disch Hosp >30min
--- NOTE | 2023-04-22 13:45 | CASEMGMT ---
Social Work Patient's RN stating patient has question for RNCM/SW. SW met with patient and introduced self and role as [facility] SW. Patient agreeable to speak with SW. Patient inquiring about pulse ox monitor. SW to inform RNCM. SW then informed patient is contact [facility] SW to schedule appointment for assistance with AD. Patient voiced understanding and reports no other needs. RNCM updated. Tita Arroyo MANAGING EDITOR, ISHA
--- NOTE | 2023-04-22 13:53 | CASEMGMT ---
WISAM CM NOTE: Pt voicing concern about not being able to monitor her pulse ox once @ home as she does not have a pulse ox and pt states she is not able to afford to buy one. Pulse ox provided to pt. RN to educate on use. Elza LLAMASN WISAM CM
== END 2023-04-22 15:14 | disposition home or self-care (01) | DRG 202 ==
LOC: ED 22:05 → PCU 22:12
PROVIDERS: Admitting Provider Family Medicine; Emergency Provider Emergency Medicine; PCP Nurse Practitioner Family; Visit Provider Internal Medicine
DX: J20.9 Acute bronchitis, unspecified (principal); J44.0 Chronic obstructive pulmonary disease with (acute) lower respiratory infection; Z68.43 Body mass index [BMI] 50.0-59.9, adult; J44.1 Chronic obstructive pulmonary disease with (acute) exacerbation; J45.901 Unspecified asthma with (acute) exacerbation; F31.9 Bipolar disorder, unspecified; E66.01 Morbid (severe) obesity due to excess calories; D50.9 Iron deficiency anemia, unspecified; E03.9 Hypothyroidism, unspecified; F17.210 Nicotine dependence, cigarettes, uncomplicated; F41.0 Panic disorder [episodic paroxysmal anxiety]; Z79.899 Other long term (current) drug therapy; Z86.16 Personal history of COVID-19
CPT/HCPCS: 36415; 71046; 80048; 80053; 84145; 85025; 87070; 87205; 87428; 87633; 87635; 93005; 94640; 94668; 97802; 99284; J7030; A4216

== ENCOUNTER 2023-09-04 15:54 | Emergency (ER) | payer MEDICARE, MEDICAID, SELFPAY ==
[2023-09-04 15:55] VITALS: BP 153/99; PULSE 99; RESP 22; TEMP 35.9; O2SAT 100; BMI 37.5
--- NOTE | 2023-09-04 16:04 | CT_ITS ---
EXAM: CT ABDOMEN AND PELVIS WITH INTRAVENOUS CONTRAST CLINICAL INDICATION: Abdominal pain, hernia ventral superior the umbili -- Unable to determine if reducible because of body h TECHNIQUE: Helically acquired images were obtained of the abdomen and pelvis with intravenous contrast. This CT exam was performed using one or more of the following dose reduction techniques: automated exposure control, adjustment of the mA and/or kV according to patient size, and/or use of iterative reconstruction technique. CONTRAST: IV 100mL Isovue-370 RADIATION DOSE: CTDIvol = 34.99 mGy, DLP = 1961.03 mGy-cm COMPARISON: 08/10/2022 FINDINGS: LIMITATIONS: Exam is markedly limited by patient size resulting in decreased resolution and streak artifact. LOWER THORAX: Unremarkable. Lung bases are clear. No cardiomegaly. No significant pericardial effusion. ABDOMEN: LIVER: Fatty infiltration of the liver with hepatomegaly. GALLBLADDER AND BILE DUCTS: Absent gallbladder. No intra- or extrahepatic biliary ductal dilation. PANCREAS: Unremarkable. No focal cystic or solid mass. SPLEEN: Unremarkable. Normal size without focal cystic or solid mass. ADRENALS: Unremarkable. No nodules. KIDNEYS AND URETERS: Unremarkable. Normal renal size and position. No hydronephrosis. STOMACH AND BOWEL: Evaluation of the GI tract is limited by absence of oral contrast. Cannot exclude stomach wall thickening. No dilated loops of bowel or evidence for obstruction. Cannot exclude segmental thickening of the shane of the small or large bowel. Cannot exclude enteritis or colitis. Appendix within normal limits. PELVIS: APPENDIX: No evidence of acute appendicitis. BLADDER: Unremarkable. REPRODUCTIVE: Absent uterus. ABDOMEN and PELVIS: INTRAPERITONEAL SPACE: Unremarkable. No ascites or other fluid collection. No free air. BONES/JOINTS: Unremarkable. No suspicious lytic or blastic abnormality. SOFT TISSUES: Small fat-containing umbilical hernia. VASCULATURE: Unremarkable. Abdominal aorta is non-dilated. LYMPH NODES: Unremarkable. No enlarged lymph nodes. CT/Abdomen/Pelvis W IV Cont ONLY IMPRESSION: 1. Limited as above. 2. Small fat-containing umbilical hernia. 3. No other definite acute or significant abnormality seen. Electronically Signed: Alejandro Parra MD at 16:50 EST ,
--- NOTE | 2023-09-04 16:05 | EDS_ITS ---
HPI History of Present Illness Chief Complaint: Abd Pain Detail of Chief Complaint: Abdominal pain with nausea and vomiting and belching Informant: patient Onset/Context/Timing Onset: Today Context: Sudden Onset Timing: Continuous and Waxes and wanes Quality: Pain Location: Periumbilical and left lower quadrant Current Severity: Mild Maximum Severity: Severe Worsened by: Screening and palpation Relieved by: Nothing Associated Symptoms Associated Symptoms: Nausea and vomiting n Narrative Narrative: Patient is a 38-year-old woman who presents because of abrupt pain while tightening a lug nut on her vehicle. She felt a tearing sensation. She localizes the pain superior to the umbilicus and also left lower quadrant. She is under the care of Dr. Blaine Gage. There is concern for hernia. After the onset of pain she has had nausea, vomiting and belching. She is flat collating. She denies fever, chills or night sweats. She denies cardiac or respiratory symptoms. She denies black or maroon-colored stool. She denies dysuria, frequency, urgency or hematuria. She reports nothing makes the pain better. Movement does make the pain worse. Prior similar symptoms: Yes Recent Illness/Hospitalization: No PFSH PFSH Medical History Anemia Anxiety Bipolar depression manic phase Bipolar disorder Chronic cough Chronic low back pain COPD (chronic obstructive pulmonary disease) COVID-19 Edentulous Herniated disc History of brain disorder Hydocephalus Hypothyroidism Kidney stones Obesity ZANA (obstructive sleep apnea) Panic attacks Smoker Thyromegaly Wears glasses Home Medications acetaminophen 500 mg tablet (Tylenol Extra Strength) 500 mg PO Q6H PRN Fever 04/28/22 [History Last Taken Unknown] hydroxyzine HCl 10 mg tablet 10 mg PO TID PRN anxiety #90 tabs 06/08/22 [Rx Last Taken Unknown] escitalopram oxalate 20 mg tablet 20 mg PO DAILY DEPRESSION #90 tabs 12/21/22 [Rx Last Taken Unknown] levothyroxine 50 mcg tablet 50 mcg PO DAILY HYPOTHYROIDISM #90 tabs 12/22/22 [Rx Last Taken Unknown] albuterol sulfate 90 mcg/actuation aerosol inhaler (Ventolin HFA) 2 puff inhalation Q6H PRN shortness of breath or wheezing #8.5 grams 02/08/23 [Rx Last Taken Unknown] albuterol sulfate 90 mcg/actuation aerosol inhaler 2 puff inhalation 6XD PRN shortness of breath or wheezing #6.7 grams 04/07/23 [Rx Last Taken Unknown] albuterol sulfate 90 mcg/actuation aerosol inhaler (Ventolin HFA) 1 - 2 puff inhalation Q4H PRN PRN Wheezing ##1 04/07/23 [Rx Last Taken Unknown] benzocaine 6 mg-menthol 10 mg lozenges (Chloraseptic Sore Throat) 1 veronica mucous membrane Q2H PRN PRN SORE THROAT #0 ea 04/22/23 [Rx Last Taken Unknown] dextromethorphan-guaifenesin ER 60 mg-1,200 mg tab,extend release,12hr (Mucinex DM) 1 tab PO Q12H 7 days #14 tabs 04/22/23 [Rx Last Taken Unknown] prednisone 10 mg tablet 10 mg PO UD #40 tabs 04/22/23 [Rx Last Taken Unknown] sennosides 8.6 mg-docusate sodium 50 mg tablet (Stool Softener-Stimulant L axative) 2 tab PO BID PRN PRN Constipation #0 tabs 04/22/23 [Rx Last Taken Unknown] Allergy/AdvReac Type Severity Reaction Status Date / Time ceftriaxone sodium Allergy Hives Verified 04/20/23 18:29 [From Rocephin] tramadol Allergy Hives Verified 04/20/23 18:29 bupropion HCl AdvReac MAKES Verified 04/20/23 18:29 [From Wellbutrin] ANXIETY WORSE Family History Grandmother Asthma Thyroid disorder Mother Asthma Thyroid disorder COPD (chronic obstructive pulmonary disease) Aunt Asthma Heart disease Hypertension Thyroid disorder Emphysema, unspecified Grandfather Asthma Diabetes Hypertension Hyperlipidemia COPD (chronic obstructive pulmonary disease) Surgical History D&C History of 3 sections History of ankle surgery History of bilateral tubal ligation History of cholecystectomy History of tonsillectomy left ankle ligament repair Social History household members: family housing: house number of children: 3 current occupational status: unemployed pets and animals: Yes Smoking Status: Current every day smoker tobacco type: cigarettes second hand exposure: Yes alcohol intake: never substance use type: does not use caffeine: No what type of physical activity do you participate in: walking frequency: daily seatbelt use: always do you feel safe at home: Yes ROS ROS ED Constitutional Constitutional ED: Denies chills, fever(s), subjective or sweats Eyes Eyes: Denies blurry vision or change in vision ENT ENT ED: Denies ear pain, rhinorrhea or sore throat Cardiovascular Cardiovascular: Denies chest pain or palpitations Respiratory/Chest Respiratory/Chest: Denies cough, dyspnea or dyspnea on exertion Gastrointestinal Gastrointestinal: Reports nausea and vomiting; Denies abdominal pain or diarrhea Genitourinary Genitourinary ED: Denies dysuria, hematuria or urinary frequency Musculoskeletal Musculoskeletal: Denies arthralgias, back pain or myalgias Integumentary Denies rash Neurologic Neurologic: Denies headache(s) or paresthesias Psychiatric Psychiatric: Reports anxiety Endocrine Endocrinology: Reports cold intolerance and heat intolerance EXAM Physical Exam Const Vital Signs: 09/04/23 15:55 Temperature 96.7 F L Temperature Source Temporal Pulse Rate 99 Respiratory Rate 22 H Blood Pressure 153/99 H Blood Pressure Mean 117 Pulse Ox 100 Oxygen Delivery Method Room Air Positive well nourished, well developed, obese and unkempt General Appearance ED: unkempt and well developed; Negative for cyanotic, diaphoretic, NAD or pallor Nutritional Appearance: obese HEENT Reports moist mucous membranes HEENT Narrative: Head is atraumatic and normocephalic. Ears are normal. Mucosa is moist. Posterior pharynx is normal. Patient is a dentulous. Eyes PERRL and EOMs intact bilaterally General Eye ED: Negative for pale conjunctiva or scleral icterus Neck no lymphadenopathy, supple and no JVD Chest Wall inspection of chest normal and palpation of chest normal Resp normal respiratory effort and clear to auscultation bilaterally Cardio regular rate, regular rhythm, S1 normal heart sound, S2 normal heart sound and no murmurs GI non-distended and hepatosplenomegaly; Negative for normal to inspection, nondistended, normoactive bowel sounds or non-tender GI Narrative: There is a bulge superior to the umbilicus. Unable to determine if this is a reducible hernia due to body habitus. There is a bulge left inguinal area. The re is no bulge right inguinal area. There is no inguinal lymphadenopathy. Radial pulses palpable but diminished again due to body habitus. Auscultation: hypoactive bowel sounds Palpation: soft and tender LLQ and other (Superior to the umbilicus.) Back/Spine no CVA tenderness Extremity normal to inspection Neuro oriented x3 and CN's II-XII intact bilaterally Sensorium / Orientation: alert Psych Appearance: unkempt Skin no rashes or lesions noted and no wounds General Skin Exam: Negative for jaundice or pallor MDM MDM MDM Narrative Medical decision making narrative: CT of the abdomen was obtained to determine if she does have hernia and if it is reduced or not reduced. Process was not obtained since patient is status post bilateral tubal ligation has no signs or symptoms of . CBC was obtained assess white count differential. BMP to assess renal function. Lab Data Attestation: I reviewed the patient's lab results. Lab results narrative: White count is elevated. Patient's had chronic elevated white counts. Basic metabolic panel is normal. Labs: Laboratory Results - last 24 hr 09/04/23 16:21 WBC 12.6 H RBC 5.26 Hgb 13.2 Hct 42.6 MCV 81.0 MCH 25.1 L MCHC 31.0 L RDW Std Deviation 53.6 H RDW Coeff of Thony 18.4 H Plt Count 336 MPV 9.6 Immature Gran % (Auto) 0.500 Neut % (Auto) 60.5 Lymph % (Auto) 29.8 [place] % (Auto) 5.8 Eos % (Auto) 2.8 Baso % (Auto) 0.6 Absolute Neuts (auto) 7.6 Absolute Lymphs (auto) 3.75 Nucleated RBC % 0 Sodium 136 Potassium 3.7 Chloride 103 Carbon Dioxide 27.0 Anion Gap 6 BUN 5 L Creatinine 0.62 Estim Creat Clear Calc 175.53 Est GFR (MDRD) Af Amer 140 Est GFR (MDRD) Non-Af 115 BUN/Creatinine Ratio 8.1 L Glucose 101 Calcium 9.0 Radiography Diagnostic Testing: Clinical Impression(s) from Imaging Studies Abdomen/Pelvis CT 09/04/23 16:04 IMPRESSION: 1. Limited as above. 2. Small fat-containing umbilical hernia. 3. No other definite acute or significant abnormality seen. Electronically Signed: Alejandro Parra MD at 16:50 EST , There is a fat-containing hernia noted. When patient was reevaluated at 1722. She states she still in pain and breathing through it . Since I am unable to determine whether I can reduce this or not and patient still complain of significant pain will contact Dr. Benjamin who is on for general surgery. Management Discussion w/another healthcare provider: Customer Service Manager (Spoke with Dr. Benjamin at 1737. He will see/evaluate patient in the emergency department.) Treatment and Re-Evaluation :: Dr. Benjamin informed that he believes he reduced the supraumbilical hernia. Patient is requesting something for pain. She was given p.o. Vicodin. She will be discharged to home. She is to see Dr. Benjamin in 2 weeks. Discharge Plan Triage Chief Complaint: Abd Pain ED Provider: Nirmal Chandra Dx/Rx/DC Orders Clinical Impression: Ventral hernia, Obesity, Nausea & vomiting, Hypothyroidism, Anxiety Instructions: ED Hernia (Adult) Prescriptions: No Action acetaminophen [Tylenol Extra Strength] 500 mg tablet 500 mg PO Q6H PRN (Reason: Fever) escitalopram oxalate 20 mg tablet 20 mg PO DAILY Qty: 90 3RF albuterol sulfate 90 mcg/actuation HFA aerosol inhaler 2 puff inhalation 6XD PRN (Reason: shortness of breath or wheezing) Qty: 6.7 0RF albuterol sulfate [Ventolin HFA] 90 mcg/actuation HFA aerosol inhaler 1 - 2 puff inhalation Q4H PRN PRN (Reason: Wheezing) Qty: 1 0RF sennosides-docusate sodium [Stool Softener-Stimulant Laxat] 8.6-50 mg Tablet 2 tab PO BID PRN PRN (Reason: Constipation) Qty: 0 0RF Chloraseptic Sore Throat 6-10 mg Lozenge 1 veronica mucous membrane Q2H PRN PRN (Reason: SORE THROAT) Qty: 0 0RF dextromethorphan-guaifenesin [Mucinex DM] 60-1,200 mg tablet extended release 12 hr 1 tab PO Q12H 7 Days Qty: 14 0RF prednisone 10 mg tablet 10 mg PO UD Qty: 40 0RF Rx Instructions: Take 4 tablets daily for 4 days, then 3 daily for 4 days, then 2 daily for 4 days, then 1 day for 4 days hydroxyzine HCl 10 mg tablet 10 mg PO TID PRN (Reason: anxiety) Qty: 90 0RF levothyroxine 50 mcg tablet 50 mcg PO DAILY Qty: 90 1RF albuterol sulfate [Ventolin HFA] 90 mcg/actuation HFA aerosol inhaler 2 puff inhalation Q6H PRN (Reason: shortness of breath or wheezing) Qty: 8.5 1RF Primary Care Provider: Blaine Gage Referrals: Yemi Benjamin MD [Med Staff - Active Staff] - 1-2 Weeks Blaine Gage, [employer]ER-[employer] [Primary Care Provider] - Disposition Disposition: Home, Self Care
[2023-09-04] MEDS: Ketorolac 15 MG/ML Vial IV (16:15)
[2023-09-04] MEDS: Ondansetron 4 MG/2 ML Vial IV (16:15)
[2023-09-04 16:35] LABS: Absolute Lymphocyte Count 3.75 X10^3/uL (0.83-4.51); Absolute Neutrophil Count 7.6 X10^3/uL (2.0-7.7); Basophil# 0.07 X10^3/uL; Basophil% 0.6 % (0-1); Eosinophil# 0.35 X10^3/uL; Eosinophils% 2.8 % (0-5); Hematocrit 42.6 % (37-47); Hemoglobin 13.2 g/dL (12.0-15.0); Lymphocyte # 3.75 X10^3/ul (0.83-4.51); Lymphocyte % 29.8 % (19-41); Mean Corpuscular Hgb 25.1 pg (27.0-32.0); Mean Platelet Vol. 9.6 fl (6.2-12.0); Monocyte# 0.73 X10^3/uL; Monocyte% 5.8 % (0-10); NRBC Flagged by Analyzer 0 % (0-5); Neutrophil # 7.62 X10^3/uL (2.7-7.7); Neutrophil % 60.5 % (47-70); Platelet Count 336 K/mm3 (150-450); RBC Distribution Width CV 18.4 % (11.6-14.6); RBC Distribution Width SD 53.6 fl (35.1-43.9); Red Blood Count 5.26 M/mm3 (4.2-5.4); White Blood Count 12.6 K/mm3 (4.4-11.0)
--- OUTSIDE RECORDS SUMMARY | 2023-09-04 16:41 | XMS RPT_ITS | CCD ---
Author Name Unknown Address [address] [place] [address] Organization [facility] Care Team Providers Care Deputy Chief Magistrate Name Role Phone Blaine Mcdowell Unavailable Unavailable Ayla Bates Unavailable Unavailable WISAM Reed RN, Naheed Velasco Unavailable UnavailGuy Marks MD Unavailable [phone] Hyacinth Acharya Unavailable Unavailable Shola, Dawson L Unavailable Unavailable Shola Dawson L Unavailable Unavailable Shola Dawson L Unavailable Unavailable No Family Physician given Unavailable Unavai lable OLDER, CARLTON (LAPPING MACHINE TENDER) Unavailable Unavailable OLDER, CARLTON (LAPPING MACHINE TENDER) Unavailable Unavailable KENROY GLEZ () Unavailable Unav ailable ANITA LOVE (PT) Unavailable Unavailable OLDER, CARLTON (LAPPING MACHINE TENDER) Unavailable Unavailable Becky MENJIVAR (PA-C) Unavailable Unavail able Blaine Mcdowell Unavailable Unavailable Lee Ann CAN TOP SETTER, Courtney S Unavailable GUY PATIÑO MD Primary Care Physician [phone] HORTENCIA CHOUDHARY, KRANTHI Martin Attending Unavailable GUY PATIÑO MD Primary Care Unavailab le Allergies Allergy Classification Reported Allergen(s) Allergy Type Date of Onset Reaction(s) Facility (13 sources) buPROPion; Translations: [Bupropion] drug allergy Very high anxiety [facility] Work Phone: (13 sources) ceftriaxone; Translations: [Ceftriaxone] drug allergy Hives and breaking out with anxiety attacks [facility] Work Phone: (11 sources) traMADol drug allergy Swelling mouth and tongue [facility] Work Phone: (1 source) buPROPion; Translations: [BUPROPION HCL] Drug Allergy 6 [facility] Repository (1 source) ceftriaxone; Translations: [CEFTRIAXONE] Drug Allergy 6 [facility] Repository (3 sources) traMADol; Translations: [TRAMADOL] Drug Allergy 6 [facility] Rep[facility] Medications Current Medications Medication Drug Class(es) Dates Sig (Normalized) Sig (Original) [id number] 200 actuat albuterol 0.09 mg/actuat metered dose inhaler (1 source) beta2-Adrenergic Agonist Start: 04-17-2023 take 2 puff(s) by inhalation every six hours as needed for wheezing ProAir HFA MDI (90 mcg/inh) inhalation aerosol 2 puff(s), Inhalation, q6h, PRN as needed for wheezing, # 8.5 gram(s), 0 Refill(s) Start Date: 04/17/23 Status: Ordered azithromycin 250 mg oral tablet (1 source) Macrolide Antimicrobial Start: 04-17-2023 End: 04-22-2023 take 1 tablet by mouth once daily Zithromax Z-Benito 250 mg oral tablet 1 dose, Oral, Daily, X 5 day(s), # 6 tab(s), 0 Refill(s), 04/22/23 3:36:00 PM EDT, 146.8 Start Date: 04/17/23 Stop Date: 04/22/23 Status: Ordered codeine phosphate 2 mg/ml / guaiFENesin 20 mg/ml oral solution (1 source) Opioid Agonist Start: 04-17-2023 End: 04-20-2023 take 1 dose by mouth every six hours as needed for cough codeine-guaifene sin 10 mg-100 mg/5 mL oral syrup Dose = 10 mL, Oral, q6h, PRN as needed for cough, X 3 day(s), # 120 mL, 0 Refill(s), Bronchitis, 146.8 Start Date: 04/17/23 Stop Date: 04/20/23 Status: Ordered ondansetron 4 mg oral tablet (1 source) Serotonin-3 Receptor Antagonist Start: 08-16-2021 End: 08-21-2021 Zofran 4 mg oral tablet Dose : 4 mg = 1 tab(s), Oral, q8h, PRN Nausea/Vomiting, X 5 day(s), # 15 tab(s), 0 Refill(s), 08/21/21 22:13:00 EST, Suspected COVID-19 Start Date: 08/16/21 Stop Date: 08/21/21 Status: Ordered predniSONE 20 mg oral tablet (1 source) Start: 04-17-2023 End: 04-22-2023 predniSONE 20 mg oral tablet Dose : 40 mg = 2 tab(s), Oral, Daily, # 10 tab(s), 0 Refill(s) Start Date: 04/17/23 Stop Date: 04/22/23 Status: Ordered Completed/Discontinued Medications Medication Drug Class(es) Dates Sig (Normalized) Sig (Original) acetaminophen 325 mg / oxyCODONE hydrochloride 5 mg oral tablet (20 sources) Opioid Agonist Start: 12-30-2014 End: 02-26-2015 take 1 tablet by mouth every six hours as needed for pain OXYCODONE-ACETAMIN OPHEN 5-325 MG TABS One tablet by mouth every 6 hours as needed for severe pain OXYCODONE-ACETAMIN OPHEN [id number] Blaine Lao DO ALPRAZolam 2 mg oral tablet (20 sources) Benzodiazepine Start: 10-01-2014 End: 04-24-2015 take 1 tablet by mouth twice daily as needed for anxiety ALPRAZOLAM 2 MG TABS One tablet by mouth twice daily as needed for anxiety ALPRAZOLAM [id number] Blaine Lao DO Problems Active Problems Problem Classification Problem Date Documented Da te Episodic/Chronic Anxiety disorders (13 sources) Generalized anxiety disorder; Translations: [Anxiety] Onset: 09-17-2014 09-17-2014 Chronic Chronic obstructive pulmonary disease and bronchiectasis (1 source) Bronchitis; Translations: [Bronchitis, not specified as acute or chronic] Onset: 04-17-2023 Episodic External Injury - Fall (1 source) Fall (on) (from) other stairs and steps, initial encounter; Translations: [Fall (on) (from) other stairs and steps, initial encounter] Onset: 02-09-2017 Menstrual disorders (18 sources) Amenorrhea; Translations: [Menorrhagia] Onset: 12-16-2014 Resolved: 12-23-2014 12-16-2014 Chronic Mood disorders (13 sources) Bipolar disorder; Translations: [Depressive disorder] Onset: 09-17-2014 09-17-2014 Chronic Other nutritional; endocrine; and metabolic disorders (14 sources) Obesity; Translations: [Morbid (severe) obesity due to excess calories] Onset: 09-17-2014 09-17-2014 Chronic Ovarian cyst (2 sources) Cyst of ovary 10-23-2018 Episodic Residual codes; unclassified (3 sources) Tobacco user; Translations: [Tobacco use] Onset: 09-17-2014 09-17-2014 Chronic Screening or history of mental health and substance abuse (11 sources) Tobacco dependence syndrome; Translations: [Tobacco user] Onset: 09-17-2014 04-28-2017 Chronic Substance-related disorders (1 source) Nicotine dependence, unspecified, uncomplicated; Translations: [Nicotine dependence, unspecified, uncomplicated] Onset: 02-09-2017 Chronic Thyroid disorders (20 sources) Shell thyroiditis; Translations: [Goiter] Onset: 04-05-2017 05-02-2017 Chronic Unclassified (2 sources) Unknown / UNK(Unknown) Onset: 02-09-2017 Unclassified (3 sources) Screening - health check; Translations: [Encounter for general adult medical examination without abnormal findings] Onset: 04-05-2017 04-05-2017 Past or Other Problems Problem Classification Problem Date Documented Date Episodic/Chronic Disorders of teeth and jaw (11 sources) Dental caries; Translations: [Dental caries, unspecified] Onset: 09-17-2014 09-17-2014 Episodic Headache, including migraine (11 sources) Chronic headache disorder; Translations: [Headache] Onset: 09-17-2014 09-17-2014 Episodic Immunizations and screening for infectious disease (11 sources) Exposure to sexually transmissible disorder; Translations: [Contact with and (suspected) exposure to infections with a predominantly sexual mode of transmission] Onset: 01-15-2015 Resolved: 01-18-2015 01-15-2015 Episodic Medical examination/evaluatio n (7 sources) Encounter for general adult medical examination without abnormal findings; Translations: [Encounter for general adult medical examination without abnormal findings] Onset: 04-05-2017 04-05-2017 Episodic Other connective tissue disease (2 sources) Pain in right leg; Translations: [Other specified soft tissue disorders] Onset: 02-09-2017 Episodic Other injuries and conditions due to external causes (3 sources) Unspecified injury of right ankle, initial encounter; Translations: [Unspecified injury of right ankle, initial encounter] Onset: 04-28-2017 04-28-2017 Episodic Other non-traumatic joint disorders (20 sources) Knee pain; Translations: [Ankle pain] Onset: 11-03-2014 Resolved: 11-06-2014 11-03-2014 Episodic Other non-traumatic joint disorders (3 sources) Ankle pain; Translations: [Pain in right ankle and joints of right foot] Onset: 11-03-2014 Resolved: 11-06-2014 11-03-2014 Episodic Skin and subcutaneous tissue infections (10 sources) Cellulitis; Translations: [Cellulitis, unspecified] Onset: 04-05-2017 04-05-2017 Episodic Spondylosis; intervertebral disc disorders; other back problems (4 sources) Low back pain; Translations: [Lumbago with sciatica, right side] Onset: 02-09-2017 04-28-2017 Episodic Unclassified (10 sources) Localized swelling, mass and lump, neck; Translations: [Localized swelling, mass and lump, neck] Onset: 04-05-2017 04-06-2017 Episodic Unclassified (1 source) NEW CONSULT Onset: 10-05-2017 Unclassified (1 source) Exposure to 2019 novel coronavirus; Translations: [Contact with and (suspected) exposure to COVID19] Onset: 08-16-2021 Results Test Name Value Interpretation Reference Range Facil ity Vital Signs Date Time Vital Sign Value Performing Clinician Facility 04-17-2023 15:22-0400 Body temperature 98.24 [degF] KRANTHI BURNETT MD [facility] 04-17-2023 15:22-0400 Heart rate 92 /min KRANTHI BURNETT MD [facility] 04-17-2023 15:22-0400 Respiratory rate 20 /min KRANTHI BURNETT MD [facility] 04-17-2023 14:55-0400 Heart rate 70 /min KRANTHI BURNETT MD [facility] 04-17-2023 14:55-0400 Respiratory rate 20 /min KRANTHI BURNETT MD [facility] 04-17-2023 14:23-0400 Body temperature 98.6 [degF] KRANTHI BURNETT MD [facility] 04-17-2023 14:23-0400 Diastolic Blood Pressure Non-Invasive 84 1 KRANTHI BURNETT MD [facility] 04-17-2023 14:23-0400 Heart rate 70 /min KRANTHI BURNETT MD [facility] 04-17-2023 14:23-0400 Respiratory rate 20 /min KRANTHI BURNETT MD [facility] 04-17-2023 14:23-0400 Systolic Blood Pressure Non-Invasive 118 1 KRANTHI BURNETT MD [facility] 08-16-2021 22:09-0500 Body height 177.8 cm KIMBERLEY RODRIGUES MD [facility] 08-16-2021 22:09-0500 Body temperature 99.32 [degF] KIMBERLEY RODRIGUES MD [facility] 08-16-2021 22:09-0500 Body weight 146.8 kg KIMBERLEY RODRIGUES MD [facility] 08-16-2021 22:09-0500 Diastolic blood pressure 70 mm[Hg] KIMBERLEY RODRIGUES MD [facility] 08-16-2021 22:09-0500 Heart rate 107 /min KIMBERLEY RODRIGUES MD [facility] 08-16-2021 22:09-0500 Respiratory rate 22 /min KIMBERLEY RODRIGUES MD [facility] 08-16-2021 22:09-0500 Systolic blood pressure 111 mm[Hg] KIMBERLEY RODRIGUES MD [facility] 04-28-2017 09:57-0400 BMI (Body Mass Index) 47.78 kg/m2 Blaine Gage WASTEWATER TECHNICIAN-C [facility] Work Phone: 04-28-2017 09:57-0400 Body Temperature 98.3 [degF] Blaine Gage WASTEWATER TECHNICIAN-C [facility] Work Phone: 04-28-2017 09:57-0400 BP Diastolic 82 mm[Hg] Blaine Culverder WASTEWATER TECHNICIAN-C [facility] Work Phone: 04-28-2017 09:57-0400 BP Systolic 113 mm[Hg] Blaine Culverder WASTEWATER TECHNICIAN-C [facility] Work Phone: 04-28-2017 09:57-0400 Height 177.8 cm Blaine Culverder WASTEWATER TECHNICIAN-C [facility] Work Phone: 04-28-2017 09:57-0400 Pulse (Heart Rate) 89 /min Blaine Culverder WASTEWATER TECHNICIAN-C [facility] Work Phone: 04-28-2017 09:57-0400 Respiratory Rate 18 /min Blaine Culverder WASTEWATER TECHNICIAN-C [facility] Work Phone: 04-28-2017 09:57-0400 Weight 151.05 kg Blaine Gage WASTEWATER TECHNICIAN-C [facility] Work Phone: 04-18-2017 13:35-0400 BMI (Body Mass Index) 47.57 kg/m2 Courtneysheldon Weavers CAN TOP SETTER [facility] 04-18-2017 13:35-0400 Body Temperature 97.9 [degF] Courtney Weavers CAN TOP SETTER [facility] 04-18-2017 13:35-0400 BP Diastolic 79 mm[Hg] Courtneysheldon Weavers CAN TOP SETTER [facility] 04-18-2017 13:35-0400 BP Systolic 121 mm[Hg] Courtneysheldon Weavers CAN TOP SETTER [facility] 04-18-2017 13:35-0400 Height 177.8 cm Courtneysheldon Weavers CAN TOP SETTER [facility] 04-18-2017 13:35-0400 Pulse (Heart Rate) 107 /min Courtneysheldon Weavers CAN TOP SETTER [facility] 04-18-2017 13:35-0400 Respiratory Rate 17 /min Courtney Lee Ann CAN TOP SETTER [facility] 04-18-2017 13:35-0400 Weight 150.41 kg Courtney Weavers CAN TOP SETTER [facility] 04-05-2017 13:05-0400 BMI (Body Mass Index) 50.17 kg/m2 Guy Patiño MD [facility] Work Phone: 04-05-2017 13:05-0400 Body Temperature 98.7 [degF] Guy Patiño MD [facility] Work Phone: 04-05-2017 13:05-0400 BP Diastolic 73 mm[Hg] Guy Patiño MD [facility] Work Phone: 04-05-2017 13:05-0400 BP Systolic 104 mm[Hg] Guy Patiño MD [facility] Work Phone: 04-05-2017 13:05-0400 Height 172.72 cm Guy Patiño MD [facility] Work Phone: 04-05-2017 13:05-0400 Pulse (Heart Rate) 89 /min Guy Patiño MD [facility] Work Phone: 04-05-2017 13:050400 Weight 149.69 kg Guy Patiño MD [facility] Work Phone: 02-08-2015 15:010400 Body surface area Derived from formula 130.54 mL/min Blaine Gage WASTEWATER TECHNICIAN-C [facility] Work Phone: 02-06-2015 15:11-0400 BMI (Body Mass Index) 39.25 kg/m2 Hyacinth Marck [facility] Work Phone: 02-06-2015 15:11-0400 Body Temperature 98.4 [degF] Hyacinth Marck [facility] Work Phone: 02-06-2015 15:11-0400 BP Diastolic 68 mm[Hg] Hyacinth Martchastityy [facility] Work Phone: 02-06-2015 15:11-0400 BP Systolic 112 mm[Hg] Hyacinth Martchastityy [facility] Work Phone: 02-06-2015 15:11-0400 BSA (Body Surface Area) 2.33 m2 Hyacinth Martchastityy [facility] Work Phone: 02-06-2015 15:11-0400 Pulse (Heart Rate) 80 /min Hyacinth Martchastityy [facility] Work Phone: 02-06-2015 15:11-0400 Respiratory Rate 16 /min Hyacinth Marck [facility] Work Phone: 02-06-2015 15:11-0400 Weight 120.57 kg Hyacinth Marck [facility] Work Phone: 09-17-2014 14:21-0500 Height 175.26 cm Hyacinth Martgarrison [facility] Work Phone: Encounters Encounter Date Encounter Type Care Provider Facility Start: 04-17-2023 End: 04-17-2023 Emergency department patient visit KRANTHI BURNETT MD Facility:B Start: 04-17-2023 End: 04-17-2023 Emergency department patient visit KRANTHI BURNETT MD [facility] Start: 08-16-2021 End: 08-16-2021 Emergency department patient visit KIMBERLEY RODRIGUES MD [facility] Start: 01-19-2018 Ambulatory Dawson L Shola Facilit y:[facility] Start: 11-23-2017 Ambulatory Dawson L Shola Facilit y:[facility] Start: 10-05-2017 Ambulatory Dawson L Shola Facilit y:[facility] Start: 03-01-2017 End: 03-03-2017 Ambulatory Becky MORALES (PA-C) [facility] Start: 02-10-2017 End: 02-13-2017 Ambulatory ANITA (PT) [facility] Start: 02-09-2017 End: 02-10-2017 Ambulatory CARLTON (LAPPING MACHINE TENDER) [facility] Procedures Date Procedure Procedure Detail Performing Clinician Start: 04-28-2017 End: 04-28-2017 Thyroid stimulating hormone (TSH) Blaine Rod Gage WASTEWATER TECHNICIAN-C Start: 04-28-2017 End: 04-28-2017 Thyroxine (T4) free Blaine A Gage WASTEWATER TECHNICIAN-C Start: 04-28-2017 End: 04-28-2017 Triiodothyronine (T3) free Blaine A Gage WASTEWATER TECHNICIAN-C Start: 04-28-2017 End: 04-28-2017 X-ray exam of ankle Blaine A Gage WASTEWATER TECHNICIAN-C Start: 04-20-2017 End: 05-02-2017 Thyroperoxidase antibody Blaine A Gage FN P-C Start: 04-18-2017 End: 04-19-2017 *CBC with Differential Courtney Nance CAN TOP SETTER Work Phone: Start: 04-18-2017 End: 04-19-2017 Thyroid stimulating hormone (TSH) Courtney Nance CAN TOP SETTER Work Phone: Start: 04-05-2017 End: 04-20-2017 Follow Up Appt 6 weeks Guy fowler MD Work Phone: Start: 04-05-2017 End: 04-07-2017 Thyroid stimulating hormone (TSH) Guy Patiño MD Work Phone: Start: 04-05-2017 End: 04-07-2017 Thyroxine (T4) free Guy Newton Work Phone: Start: 02-08-2015 End: 02-08-2015 Urinalysis Blaine Gage WASTEWATER TECHNICIAN-C Start: 02-06-2015 End: 02-06-2015 Drain/inject, joint/bursa Blaine Sheth n DO Work Phone: Start: 01-15-2015 End: 01-16-2015 *CHLGC - Chlamydia/GC DNA Probe [id number] Blaine Lao DO Work Phone: Start: 01-15-2015 End: 01-17-2015 *HIV antibody Blaine Lao DO Work Phone: Start: 01-15-2015 End: 01-23-2015 Reagin antibody presence Blaine Lao DO Work Phone: Start: 12-16-2014 End: 12-16-2014 B-HCG Blaine Lao DO Work Phone: section KIMBERLEY ZUÑIGA MD Cholecystectomy KIMBERLEY TANG MD Entire ankle region (body structure) KIMBERLEY RODRIGUES MD Tonsillectomy KIMBERLEY OLGUIN MD Plan of Treatment Date Care Activity Detail Author Start: 05-29-2017 End: 04-28-2017 Thyroid stimulating hormone (TSH) *TSH [facility] Work Phone: Start: 05-29-2017 End: 04-28-2017 Thyroxine (T4) free *T4 free [facility] Work Phone: Start: 05-22-2017 End: 04-28-2017 Thyroid stimulating hormone (TSH) *TSH [facility] Work Phone: Start: 05-22-2017 End: 04-28-2017 Thyroxine (T4) free *T4 free [facility] Work Phone: Start: 05-22-2017 End: 04-28-2017 Triiodothyronine (T3) free *T3-Free [facility] Work Phone: Start: 05-17-2017 End: 05-17-2017 Appointment Appointment [facility] Work Phone: Start: 04-28-2017 End: 04-28-2017 Appointment Appointment [facility] Work Phone: Start: 04-28-2017 End: 04-28-2017 Pain Management Referral Pain Management Referral Brenda Pascual, [address] [place] [address], [place] [address], [place], [address] [facility] Work Phone: Start: 04-28-2017 End: 04-28-2017 X-ray exam of ankle X-Ray, Ankle [facility] Work Phone: Start: 04-20-2017 End: 04-28-2017 Thyroperoxidase antibody [facility] Work Phone: Start: 04-18-2017 End: 04-18-2017 Appointment Appointment [facility] Start: 04-18-2017 End: 04-19-2017 *CBC with Differential *CBC with Differential [facility] Start: 04-18-2017 End: 04-19-2017 Thyroid stimulating hormone (TSH) *TSH [facility] Start: 04-18-2017 End: 04-18-2017 Transvaginal us, non-ob US Transvaginal [facility] Start: 04-18-2017 End: 04-18-2017 Us exam, pelvic, complete US Pelvis [facility] Start: 04-05-2017 End: 04-05-2017 Appointment Appointment [facility] Work Phone: Start: 04-05-2017 End: 04-20-2017 Follow Up Appt 6 weeks Follow Up Appt 6 weeks [facility] Work Phone: Start: 04-05-2017 End: 04-07-2017 Thyroid stimulating hormone (TSH) *TSH [facility] Work Phone: Start: 04-05-2017 End: 04-07-2017 Thyroxine (T4) free *T4 free [facility] Work Phone: Start: 04-05-2017 End: 04-06-2017 Us exam of head and neck US Thyroid (Soft tissue neck) [facility] Work Phone: Start: 02-26-2015 End: 02-26-2015 Mri jnt of lwr extre w/o dye MRI Joint Lower Extremity [facility] Work Phone: Start: 02-06-2015 End: 02-06-2015 Kenalog per 10 mg Kenalog per 10 mg [facility] Work Phone: Start: 01-15-2015 End: 01-16-2015 *CHLGC - Chlamydia/GC DNA Probe [id number] *CHLGC - Chlamydia/GC DNA Probe [id number] [facility] Work Phone: Start: 01-15-2015 End: 01-17-2015 *HIV antibody *HIV antibody [facility] Work Phone: Start: 01-15-2015 End: 01-23-2015 Reagin antibody presence *RPR [facility] Work Phone: Start: 12-16-2014 End: 12-16-2014 B-HCG *HCGT - HCG Titer Quant., Serum [facility] Work Phone: Start: 11-03-2014 End: 11-03-2014 X-ray exam of ankle X-Ray, Ankle [facility] Work Phone: Start: 11-03-2014 End: 11-03-2014 X-ray exam, knee, 4 or more X-Ray, Knee [facility] Work Phone: Payers Date Payer Category Payer Unknown [id number] 2016 Unknown [id number] 1987 Unknown [id number] Social History Date Type Detail Facility Smokes tobacco d aily (finding) [facility] Sex Assigned At Female [facility] Start: 04-17-2023 Tobacco smoking status Heavy t obacco smoker (finding) [facility] Functional Status Date Assessment Result Facility 04-17-2023 Functional Status Assistive Device None A [facility] 04-17-2023 Functional Status Standard Safet y ID band on, Call device within reach, Bed in low position, Wheels locked [facility] Mental Status Date Assessment Result Facility 04-17-2023 Mental Status Orientation Oriented x 4 [facility] 04-17-2023 Mental Status [facility] Discharge instructions 04-17-2023 Note Date & Type Note Facility 04-17-2023 Hospital Discharg e instructions Patient Education 04/17/2023 15:37:25 Bronchitis With Wheezing (Adult) Viral or Bacterial Bronchitis with Wheezing (Adult) Bronchitis is an infection of the air passages. It often occurs during a cold and is usually caused by a virus. Symptoms include cough with mucus (phlegm) and low-grade fever. This illness is contagious during the first few days and is spread through the air by coughing and sneezing, or by direct contact (touching the sick person and then touching your own eyes, nose, or mouth). If there is a lot of inflammation, air flow is restricted. The air passages may also go into spasm, especially if you have asthma. This causes wheezing and difficulty breathing even in people who do not have asthma. Bronchitis usually lasts 7 to 14 days. The wheezing should improve with treatment during the first week. An inhaler is often prescribed to relax the air passages and stop wheezing. Antibiotics will be prescribed if your doctor thinks there is also a secondary bacterial infection. Home care If symptoms are severe, rest at home for the first 2 to 3 days. When you go back to your usual activities, don't let yourself get too tired. Dont s'moke. Also avoid being exposed to secondhand smoke. You may use wuic-hpx-tmjzjyo medicine to control fever or pain, unless another medicine was prescribed. Note: If you have chronic liver or kidney disease or have ever had a stomach ulcer or gastrointestinal bleeding, talk with your healthcare provider before using these medicines. Also talk to your provider if you are taking medicine to prevent blood clots.) Aspirin should never be given to anyone younger than 18 years of age who is ill with a viral infection or fever. It may cause severe liver or brain damage. Your appetite may be poor, so a light diet is fine. Stay well hydrated by drinking 6 to 8 glasses of fluids per day (such as water, soft drinks, sports drinks, juices, tea, or soup). Extra fluids will help loosen secretions in the nose and lungs. Mydx-uvv-tzxvlzk cough, cold, and sore-throat medicines will not shorten the length of the illness, but they may be helpful to reduce symptoms. (Note: Don't use decongestants if you have high blood pressure.) If you were given an inhaler, use it exactly as directed. If you need to use it more often than prescribed, your condition may be worsening. If this happens, contact your healthcare provider. If prescribed, finish all antibiotic medicine, even if you are feeling better after only a few days. Follow-up care Follow up with your healthcare provider, or as advised. If you had an X-ray or ECG (electrocardiogram), a specialist will review it. You will be notified of any new findings that may affect your care. If you are age 65 or older, or if you have a chronic lung disease or condition that affects your immune system, or you smoke, ask your healthcare provider about getting a pneumococcal vaccine and a yearly flu shot (influenza vaccine). When to seek medical advice Call your healthcare provider right away if any of these occur: Fever of 100.4 F (38 C) or higher, or as directed by your healthcare provider Coughing up increasing amounts of colored sputum Weakness, drowsiness, headache, facial pain, ear pain, or a stiff neck Call 911 Call 911 if any of these occur. Coughing up blood Worsening weakness, drowsiness, headache, or stiff neck Increased wheezing not helped with medication, shortness of breath, or pain with breathing [id number] [employer] [place] [address], [place] [address]. All rights reserved. This information is not intended as a substitute for professional medical care. Always follow your healthcare professional's instructions. Follow Up Care 04/17/2023 14:16:54 With:GUY PATIÑO MD Address: [place] [id number] [phone] When:2-4 days [facility] Clinical Note 04-17-2023 Note Date & Type Note Facility 04-17-2023 Note Discharge Instructions Thank you for allowing [facility] to assist you with your healthcare needs. The following is important discharge information regarding your hospital visit. Diagnosis from Today's Visit Bronchitis Cough What to Do Next Instructions from Your Care Team No qualifying data available. Post Acute Orders No qualifying data available. You Need to Schedule the Following Appointments Follow Up with GUY PATIÑO MD When Within 2-4 days [facility] [address] [phone] Allergies Rocephin Ultram Wellbutrin Medications Please ask your primary doctor or pharmacist before taking any other medication not listed, including over the counter drugs, herbal medications, vitamins and or supplements as they may interact with your home medications. What How Much When Why Instructions Last Dose New albuterol (ProAir HFA MDI (90 mcg/ inh) inhalation aerosol) 2 puff(s) by inhalation Every 6 hours as needed for as needed for wheezing Printed Prescription New azithromycin (Zithromax Z-Benito 250 mg oral tablet) 1 dose by mouth Every day Duration: 5 Days Printed Prescription New codeine-guaifenesin (codeine-guaifenesin 10 mg-100 mg/ 5 mL oral syrup) 10 Milliliter by mouth Every 6 hours as needed for as needed for cough Bronchitis Duration: 3 Days Printed Prescription New predniSONE (predniSONE 20 mg oral tablet) 2 tab(s) by mouth Every day Duration: 5 Days Printed Prescription Please take this list to your next doctor s visit. Bring all medications you take, including over the counter medications, herbals and other supplements with you to your doctor s visit. Patients and families are reminded to discard old lists and to update any records with all medication providers or retail pharmacies. Medication Leaflets prednisone (MICHELLE kailey Bruner What is the most important information I should know about prednisone? You should not use prednisone if you have a fungal infection anywhere in your body. You should not stop using prednisone suddenly. Follow your doctor's instructions about tapering your dose. What is prednisone? Prednisone is a steroid that reduces inflammation in the body, and also suppresses your immune system. Prednisone is used to treat many different conditions such as hormonal disorders, skin diseases, arthritis, lupus, psoriasis, allergic conditions, ulcerative colitis, Crohn's disease, eye diseases, lung diseases, asthma, tuberculosis, blood cell disorders, kidney disorders, leukemia, lymphoma, multiple sclerosis, organ transplant rejection, swelling from a brain tumor or injury. Prednisone may also be used for purposes not listed in this medication guide. What should I discuss with my healthcare provider before taking prednisone? You should not use prednisone if you are allergic to it, or if you have a fungal infection anywhere in your body. Steroid medication can weaken your immune system, making it easier for you to get an infection or worsening an infection you already have. Tell your doctor about any illness or infection you've had within the past several weeks. Tell your doctor if you have ever had: heart problems, high blood pressure, or a heart attack; glaucoma or cataracts; herpes infection of the eyes; past or present tuberculosis; a parasite infection that causes diarrhea (such as threadworms); any illness that causes diarrhea; underactive thyroid; diabetes; a stomach ulcer, diverticulitis; a colostomy or ileostomy; osteoporosis or low bone mineral density (steroid medication can increase your risk of bone loss); low levels of calcium or potassium in your blood; cirrhosis or other liver disease; mental illness or psychosis; or a muscle disorder such as myasthenia gravis. Long-term use of steroids may lead to bone loss (osteoporosis), especially if you smoke or drink alcohol, if you do not exercise, or if you do not get enough vitamin D or calcium in your diet. It is not known whether this medicine will harm an unborn baby. Tell your doctor if you are or plan to become . You should not breastfeed while using prednisone. How should I take prednisone? Follow all directions on your prescription label and read all medication guides or instruction sheets. Your doctor may occasionally change your dose. Use the medicine exactly as directed. Prednisone is taken daily or every other day, depending on the condition being treated. You may need to take the medicine at a certain time of day. Follow your doctor's instructions about when and how often to take this medicine. Take with food if prednisone upsets your stomach. Measure liquid medicine carefully. Use the dosing syringe provided, or use a medicine dose-measuring device (not a kitchen spoon). Swallow the delayed-release tablet whole and do not crush, chew, or break it. Prednisone can weaken (suppress) your immune system, and you may get an infection more easily. Call your doctor if you have signs of infection (fever, weakness, cold or flu symptoms, skin sores, diarrhea, frequent or recurring illness). If you have major surgery or a severe injury or infection, your prednisone dose needs may change. Make sure any doctor caring for you knows you are using this medicine. If you use this medicine long-term, you may need medical tests and vision exams. In case of emergency, wear or carry medical identification to let others know you use a steroid. You should not stop using prednisone suddenly. Follow your doctor's instructions about tapering your dose. Store at room temperature away from moisture, heat, and light. What happens if I miss a dose? Take the medicine as soon as you can, but skip the missed dose if it is almost time for your next dose. Do not take two doses at one time. What happens if I overdose? Seek emergency medical attention or call the Poison Help line at . High doses or long-term use of prednisone can lead to thinning skin, easy bruising, changes in body fat (especially in your face, neck, back, and waist), increased acne or facial hair, menstrual problems, impotence, or loss of interest in sex. What should I avoid while taking prednisone? Do not receive a 'live' vaccine while using prednisone. The vaccine may not work as well and may not fully protect you from disease. Live vaccines include measles, mumps, rubella (MMR), polio, rotavirus, typhoid, yellow fever, varicella (chickenpox), zoster (shingles), and nasal flu (influenza) vaccine. Avoid being near people who are sick or have infections. Call your doctor for preventive treatment if you are exposed to chickenpox or measles. These conditions can be serious or even fatal in people who are using steroid medicine. Avoid drinking alcohol. What are the possible side effects of prednisone? Get emergency medical help if you have signs of an allergic reaction: hives; difficult breathing; swelling of your face, lips, tongue, or throat. Call your doctor at once if you have: muscle pain or weakness; blurred vision, tunnel vision, eye pain, or seeing halos around lights; severe depression, changes in personality, unusual thoughts or behavior; bloody or tarry stools, coughing up blood or vomit that looks like coffee grounds; swelling, rapid weight gain, feeling short of breath; irregular heartbeats; severe headache, pounding in your neck or ears; decreased adrenal gland hormones--muscle weakness, tiredness, diarrhea, nausea, menstrual changes, skin discoloration, craving salty foods, and feeling light-headed; or low potassium level--leg cramps, constipation, irregular heartbeats, fluttering in your chest, increased thirst or urination, numbness or tingling, muscle weakness or limp feeling. Prednisone can affect growth in children. Tell your doctor if your child is not growing at a normal rate while using this medicine. Common side effects may include: weight gain (especially in your face or your upper back and torso); increased appetite; mood changes, trouble sleeping; changes in your menstrual periods; problems with memory or thought; muscle or joint pain; weakness; headache, dizziness, spinning sensation; nausea, bloating, loss of appetite; slow wound healing; or acne, increased sweating, thinning skin, bruising, pinpoint spots under your skin. This is not a complete list of side effects and others may occur. Call your doctor for medical advice about side effects. You may report side effects to FDA at 1-441-OWT-0220. What other drugs will affect prednisone? Sometimes it is not safe to use certain medications at the same time. Some drugs can affect your blood levels of other drugs you take, which may increase side effects or make the medications less effective. Tell your doctor about all your current medicines. Many drugs can affect prednisone, especially: bupropion; cyclosporine; digoxin; ketoconazole; an antibiotic; control pills or hormone replacement therapy; a diuretic or 'water pill'; insulin or oral diabetes medicine; a blood thinner--warfarin, Coumadin, Jantoven; or NSAIDs (nonsteroidal anti-inflammatory drugs)--aspirin, ibuprofen (Advil, Motrin), naproxen (Aleve), celecoxib, diclofenac, indomethacin, meloxicam, and others. This list is not complete and many other drugs may affect prednisone. This includes prescription and tcdu-prl-abcyqwk medicines, vitamins, and herbal products. Not all possible drug interactions are listed here. Where can I get more information? Your pharmacist can provide more information about prednisone. Remember, keep this and all other medicines out of the reach of children, never share your medicines with others, and use this medication only for the indication prescribed. Every effort has been made to ensure that the information provided by [employer]. [employer]') is accurate, up-to-date, and complete, but no guarantee is made to that effect. Drug information contained herein may be time sensitive. [employer] information has been compiled for use by healthcare practitioners and consumers in the [place] and therefore [employer] does not warrant that uses outside of the [place] are appropriate, unless specifically indicated otherwise. [employer] drug information does not endorse drugs, diagnose patients or recommend therapy. [employer] drug information is an informational resource designed to assist licensed healthcare practitioners in caring for their patients and/or to serve consumers viewing this service as a supplement to, and not a substitute for, the expertise, skill, knowledge and judgment of healthcare practitioners. The absence of a warning for a given drug or drug combination in no way should be construed to indicate that the drug or drug combination is safe, effective or appropriate for any given patient. [employer] does not assume any responsibility for any aspect of healthcare administered with the aid of information [employer] provides. The information contained herein is not intended to cover all possible uses, directions, precautions, warnings, drug interactions, allergic reactions, or adverse effects. If you have questions about the drugs you are taking, check with your doctor, nurse or pharmacist. Copyright 6009-1099 [employer]. Version: 10.. Revision Date: 11/08/2018. codeine and guaifenesin (LAZARA bocanegra and owen durant) Cheracol with Chantel, Nba CHINCHILLA What is the most important information I should know about codeine and guaifenesin? Codeine can slow or stop your breathing, and may be habit-forming. MISUSE OF THIS MEDICINE CAN CAUSE ADDICTION, OVERDOSE, OR , especially in a child or other person using the medicine without a prescription. Do not give this medicine to anyone under 18. What is codeine and guaifenesin? Codeine is a narcotic cough suppressant. It affects the signals in the brain that trigger cough reflex. Guaifenesin is an expectorant. It helps loosen congestion in your chest and throat, making it easier to cough out through your mouth. Codeine and guaifenesin is a combination medicine used to treat cough and chest congestion caused by allergies, the common cold, or the flu. This medicine will not treat a cough that is caused by smoking, asthma, or emphysema. Codeine and guaifenesin may also be used for purposes not listed in this medication guide. What should I discuss with my healthcare provider before taking codeine and guaifenesin? You should not take this medicine if you are allergic to codeine or guaifenesin. In some people, codeine breaks down rapidly in the liver and reaches higher than normal levels in the body. This can cause dangerously slow breathing and may cause , especially in a child. Do not give this medicine to anyone under 18. To make sure codeine and guaifenesin is safe for you, tell your doctor if you have ever had: a cough with mucus; asthma, COPD, or other breathing disorder; blockage in your digestive tract (stomach or intestines); a head injury or brain tumor; low blood pressure; or drug or alcohol addiction. If you use codeine while you are , your baby could become dependent on the drug. This can cause life-threatening withdrawal symptoms in the baby after it is born. Babies born dependent on habit-forming medicine may need medical treatment for several weeks. Tell your doctor if you are or plan to become . Do not breast-feed. Codeine can pass into breast milk and may cause drowsiness, breathing problems, or in a nursing baby. Do not breast-feed. How should I take codeine and guaifenesin? Follow all directions on your prescription label. Codeine can slow or stop your breathing. Never use codeine and guaifenesin in larger amounts, or for longer than prescribed. Cough or cold medicine is usually taken only for a short time until your symptoms clear up. Codeine may be habit-forming, even at regular doses. Never share this medicine with another person, especially someone with a history of drug abuse or addiction. MISUSE OF NARCOTIC MEDICINE CAN CAUSE ADDICTION, OVERDOSE, OR , especially in a child or other person using the medicine without a prescription. Selling or giving away codeine is against the law. Measure liquid medicine with the dosing syringe provided, or with a special dose-measuring spoon or medicine cup. If you do not have a dose-measuring device, ask your pharmacist for one. Call your doctor if your symptoms do not improve after 7 days of treatment, or if you have a fever with a headache or skin rash. Store at room temperature away from moisture and heat. Do not freeze. Keep track of the amount of medicine used from each new bottle. Codeine is a drug of abuse and you should be aware if anyone is using your medicine improperly or without a prescription. What happens if I miss a dose? Since codeine and guaifenesin is used when needed, you may not be on a dosing schedule. If you are on a schedule, use the missed dose as soon as you remember. Skip the missed dose if it is almost time for your next scheduled dose. Do not use extra medicine to make up the missed dose. What happens if I overdose? Seek emergency medical attention or call the Poison Help line at . A codeine overdose can be fatal, especially in a child or other person using the medicine without a prescription. Overdose symptoms may include slow breathing and heart rate, severe drowsiness, muscle weakness, cold and clammy skin, pinpoint pupils, and fainting. What should I avoid while taking codeine and guaifenesin? This medicine may impair your thinking or reactions. Avoid driving or operating machinery until you know how this medicine will affect you. Dizziness or severe drowsiness can cause falls or other accidents. Do not drink alcohol. Dangerous side effects or could occur. Ask a doctor or pharmacist before using any other cough or cold medicine. Many combination medicines contain guaifensin. Taking certain products together can cause you to get too much of this medicine. What are the possible side effects of codeine and guaifenesin? Get emergency medical help if you have signs of an allergic reaction: hives; difficult breathing; swelling of your face, lips, tongue, or throat. Like other narcotic medications, codeine can slow your breathing. may occur if breathing becomes too weak. A person caring for you should seek emergency medical attention if you have slow breathing with long pauses, blue colored lips, or if you are hard to wake up. Stop using this medicine and call your doctor at once if you have: noisy breathing, sighing, shallow breathing; a slow heart rate or weak pulse; severe dizziness or drowsiness; confusion, hallucinations, unusual thoughts or behavior; little or no urinating; severe constipation; or slow heart rate, weak or shallow breathing. Serious side effects may be more likely in older adults and those who are overweight, malnourished, or debilitated. Common side effects may include: constipation; or mild drowsiness. This is not a complete list of side effects and others may occur. Call your doctor for medical advice about side effects. You may report side effects to FDA at 1-808-ARF-3782. What other drugs will affect codeine and guaifenesin? Taking codeine and guaifenesin with other drugs that make you sleepy or slow your breathing can cause dangerous side effects or . Ask your doctor before taking a sleeping pill, narcotic pain medicine, prescription cough medicine, a muscle relaxer, or medicine for anxiety, depression, or seizures. Other drugs may interact with codeine and guaifenesin, including prescription and cuwv-otr-mtlfvds medicines, vitamins, and herbal products. Tell your doctor about all your current medicines and any medicine you start or stop using. Where can I get more information? Your pharmacist can provide more information about codeine and guaifenesin. Remember, keep this and all other medicines out of the reach of children, never share your medicines with others, and use this medication only for the indication prescribed. Every effort has been made to ensure that the information provided by [employer]. [employer]') is accurate, up-to-date, and complete, but no guarantee is made to that effect. Drug information contained herein may be time sensitive. [employer] information has been compiled for use by healthcare practitioners and consumers in the [place] and therefore [employer] does not warrant that uses outside of the [place] are appropriate, unless specifically indicated otherwise. [employer] drug information does not endorse drugs, diagnose patients or recommend therapy. [employer] drug information is an informational resource designed to assist licensed healthcare practitioners in caring for their patients and/or to serve consumers viewing this service as a supplement to, and not a substitute for, the expertise, skill, knowledge and judgment of healthcare practitioners. The absence of a warning for a given drug or drug combination in no way should be construed to indicate that the drug or drug combination is safe, effective or appropriate for any given patient. [facility] does not assume any responsibility for any aspect of healthcare administered with the aid of information [facility] provides. The information contained herein is not intended to cover all possible uses, directions, precautions, warnings, drug interactions, allergic reactions, or adverse effects. If you have questions about the drugs you are taking, check with your doctor, nurse or pharmacist. Copyright 6476-4896 [facility]. Version: 10.. Revision Date: 03/06/2023. Education Materials Viral or Bacterial Bronchitis with Wheezing (Adult) Bronchitis is an infection of the air passages. It often occurs during a cold and is usually caused by a virus. Symptoms include cough with mucus (phlegm) and low-grade fever. This illness is contagious during the first few days and is spread through the air by coughing and sneezing, or by direct contact (touching the sick person and then touching your own eyes, nose, or mouth). If there is a lot of inflammation, air flow is restricted. The air passages may also go into spasm, especially if you have asthma. This causes wheezing and difficulty breathing even in people who do not have asthma. Bronchitis usually lasts 7 to 14 days. The wheezing should improve with treatment during the first week. An inhaler is often prescribed to relax the air passages and stop wheezing. Antibiotics will be prescribed if your doctor thinks there is also a secondary bacterial infection. Home care If symptoms are severe, rest at home for the first 2 to 3 days. When you go back to your usual activities, don't let yourself get too tired. Dont s'moke. Also avoid being exposed to secondhand smoke. You may use euet-spf-foteutz medicine to control fever or pain, unless another medicine was prescribed. Note: If you have chronic liver or kidney disease or have ever had a stomach ulcer or gastrointestinal bleeding, talk with your healthcare provider before using these medicines. Also talk to your provider if you are taking medicine to prevent blood clots.) Aspirin should never be given to anyone younger than 18 years of age who is ill with a viral infection or fever. It may cause severe liver or brain damage. Your appetite may be poor, so a light diet is fine. Stay well hydrated by drinking 6 to 8 glasses of fluids per day (such as water, soft drinks, sports drinks, juices, tea, or soup). Extra fluids will help loosen secretions in the nose and lungs. Phvm-rdr-rxsnkxx cough, cold, and sore-throat medicines will not shorten the length of the illness, but they may be helpful to reduce symptoms. (Note: Don't use decongestants if you have high blood pressure.) If you were given an inhaler, use it exactly as directed. If you need to use it more often than prescribed, your condition may be worsening. If this happens, contact your healthcare provider. If prescribed, finish all antibiotic medicine, even if you are feeling better after only a few days. Follow-up care Follow up with your healthcare provider, or as advised. If you had an X-ray or ECG (electrocardiogram), a specialist will review it. You will be notified of any new findings that may affect your care. If you are age 65 or older, or if you have a chronic lung disease or condition that affects your immune system, or you smoke, ask your healthcare provider about getting a pneumococcal vaccine and a yearly flu shot (influenza vaccine). When to seek medical advice Call your healthcare provider right away if any of these occur: Fever of 100.4 F (38 C) or higher, or as directed by your healthcare provider Coughing up increasing amounts of colored sputum Weakness, drowsiness, headache, facial pain, ear pain, or a stiff neck Call 911 Call 911 if any of these occur. Coughing up blood Worsening weakness, drowsiness, headache, or stiff neck Increased wheezing not helped with medication, shortness of breath, or pain with breathing [id number] [employer]. [address] [place] [address], [place] [address]. All rights reserved. This information is not intended as a substitute for professional medical care. Always follow your healthcare professional's instructions. Additional Information VACCINATE! IT SAVES LIVES! Members of the community who have not yet received the COVID-19 vaccine and would like to receive it can visit one of [facility] vaccine clinics. There are many vaccine clinic locations within the State. For locations and available times, please visit [email or web address] It is important to note that some COVID mobile vaccine clinics are held outdoors and may be canceled in rainy or stormy conditions. To learn more about pediatric vaccinations (ages 5-11), we invite you to visit the [facility] webpage. [email or web address]-[email or web address] -[email or web address].html To learn more about the COVID-19 vaccine, we invite you to visit the CDC website for a list of frequently asked questions. https://www.cdc.gov/coronavirus/2019-n cov/vaccines/faq.html [facility] Patient Portal Access Instructions: Stay connected with your healthcare team and access your personal medical information anytime with the [facility] Patient Portal. If you would like a full copy of your medical records please contact the [facility] Medical Records Department Monday through Monday between 8a.m. and 4:30p.m. Please follow the directions below to access the portal: 1.Access the email account you provided upon registration to the hospital.2.Look for an invitation email from [facility].3.Open the email and access the invitation link: Accept Invitation to [facility].Fill in the required watkins to create your account. Sign into [email or web address] with your username and password that you created in the above steps to stay up to date. You can then view a summary of results, a summary of your visits, and the ability to download your summaries to your computer or send the information securely to a physician. Remember that your healthcare information is confidential, so carefully consider who you will allow to register on the [facility] Patient Portal for access to your information. You can also access the [facility] Patient Portal on the [employer] devan. Simply click on Health Records under Health Data and then click on the [employer] logo. HOW TO SAFELY DISPOSE OF PRESCRIPTION MEDICATIONS Please use one of the following methods to safely dispose of your unused medications. 1.Use a drug disposal kit: the drug disposal pouch allows you to safely discard your old and unused drugs. Ask your nurse to give you one when you are discharged.2.Visit a local take-back location: Many local pharmacies and police departments have programs that collect old and unwanted prescription drugs. Call your local pharmacy or go to http://[employer].Profilepasser/3K3Si4k to find one close to you.3.Make use of household items: Use cat litter or old coffee grounds to dispose medications if other options are not available. Mix your drugs with these household products, seal them in an airtight container and throw it into the garbage. Call [facility]: [phone] to be sure your drugs can be disposed of in this way. Some medicines may require a different approach.4.Never flush your medications down the toilet. IF YOU HAVE BEEN PRESCRIBED AN OPIOIDS FOR PAIN If you have been prescribed an opioid (such as hydrocodone, oxycodone or morphine), it is critical to understand the possible side effects and risks of opioid pain medications. Even when taken as directed, opioids can have several side effects including: Tolerance, meaning you might need to take more of a medication for the same pain relief. Nausea, vomiting and/or constipation. Sleepiness, dizziness, dry mouth, confusion, depression or itching. Physical dependence, meaning you have withdrawal symptoms when a medication is stopped ? this can develop within a few days. KNOW YOUR RESPONSIBILITIES It is important to know exactly how much and how often to take the opioid pain medications you are prescribed. Never take opioids in higher amounts or more often than prescribed. Do not combine opioids with alcohol or other drugs that cause drowsiness, such as benzodiazepines, also known as benzos, including diazepam and alprazolam, muscle relaxants or sleep aids. Never sell or share prescription opioids. This is illegal. Store opioids in a secure place and out of reach of others (including children, family, friends and visitors). The last page(s) of this document has been signed and retained as a CHART COPY Signatures Patient Education Materials Bronchitis With Wheezing (Adult) Medication Leaflets prednisone, codeine and guaifenesin My discharge plan and instructions have been reviewed and explained to me and IROBBY CHARLENE L understand my current condition and have read and understand these discharge instructions. I have received a written copy of the plan/instructions. If I have questions, I am aware that I should contact my doctor. Patient/Support Service Tech Signature: _ Date/Time: Relationship to Patient: Witness Name/Signature: Date/Time: [facility] Clinical Note 04-17-2023 Note Date & Type Note Facility 04-17-2023 Note ORIGINAL EXAMINATION: TWO XRAY VIEWS OF THE CHEST04/17/2023 3:18 pm COMPARISON: 10/08/2017 HISTORY: ORDERING SYSTEM PROVIDED HISTORY: Reason for Exam: SOB FINDINGS: The heart size is normal. Accentuated vascular and interstitial markings seen. Lung volumes are low. Left diaphragm is elevated. No pneumothorax or large pleural effusion. No aggressive osseous lesions identified. IMPRESSION: Accentuated vascular and interstitial markings could relate to congestion or technique Interpreted by: Valdez Benedict MD Preliminary Report By: Valdez Benedict MD Electronically signed By Valdez Benedict MD Dictated Date: 04/17/2023 3:20:34 PM Prelim Date: 04/17/2023 3:21:48 PM Sign Date: 04/17/2023 3:21:48 PM Ordering Provider: KRANTHI [facility] Discharge instructions 08-17-2021 Note Date & Type Note Facility 08-17-2021 Hospital Discharg e instructions Patient Education 08/16/2021 22:13:27 COVID-19 Prevent the Spread of COVID-19 If You Are Sick (12/31/2019)(CUSTOM) Prevent the Spread of COVID-19 If You Are Sick Accessible version: https://www.cdc.gov/coronaviru s/2019-ncov/gv-uxc-zfe-sick/st nka-muwh-mbpv.html If you are sick with COVID-19 or think you might have COVID-19, follow the steps below to help protect other people in your home and community. Stay home except to get medical care. Stay home. Most people with COVID-19 have mild illness and are able to recover at home without medical care. Do not leave your home, except to get medical care. Do not visit public areas. Take care of yourself. Get rest and stay hydrated. Get medical care when needed. Call your doctor before you go to their office for care. But, if you have trouble breathing or other concerning symptoms, call 911 for immediate help. Avoid public transportation, ride-sharing, or taxis. Separate yourself from other people and pets in your home. As much as possible, stay in a specific room and away from other people and pets in your home. Also, you should use a separate bathroom, if available. If you need to be around other people or animals in or outside of the home, wear a cloth face covering. See COVID-19 and Animals if you have questions about pets: https://www.cdc.gov/coronaviru s/2019ncov/faq.html#LYTHA13qvz mals Monitor your symptoms. Common symptoms of COVID-19 include fever and cough. Trouble breathing is a more serious symptom that means you should get medical attention. Follow care instructions from your healthcare provider and local health department. Your local health authorities will give instructions on checking your symptoms and reporting information. If you develop emergency warning signs for COVID-19 get medical attention immediately. Emergency warning signs include*: Trouble breathing Persistent pain or pressure in the chest New confusion or not able to be woken Bluish lips or face *This list is not all inclusive. Please consult your medical provider for any other symptoms that are severe or concerning to you. Call 911 if you have a medical emergency. If you have a medical emergency and need to call 911, notify the hydro sprayer operator that you have or think you might have, COVID-19. If possible, put on a facemask before medical help arrives Call ahead before visiting your doctor. Call ahead. Many medical visits for routine care are being postponed or done by phone or telemedicine. If you have a medical appointment that cannot be postponed, call your doctor s office. This will help the office protect themselves and other patients. If you are sick, wear a cloth covering over your nose and mouth. You should wear a cloth face covering over your nose and mouth if you must be around other people or animals, including pets (even at home). You don t need to wear the cloth face covering if you are alone. If you can t put on a cloth face covering (because of trouble breathing for example), cover your coughs and sneezes in some other way. Try to stay at least 6 feet away from other people. This will help protect the people around you. Note: During the COVID-19 pandemic, medical grade facemasks are reserved for healthcare workers and some first responders. You may need to make a cloth face covering using a scarf or bandana. Cover your coughs and sneezes. Cover your mouth and nose with a tissue when you cough or sneeze. Throw used tissues in a lined trash can. Immediately wash your hands with soap and water for at least 20 seconds. If soap and water are not available, clean your hands with an alcohol-based hand woodwind instruments inspector that contains at least 60% alcohol. Clean your hands often. Wash your hands often with soap and water for at least 20 seconds. This is especially important after blowing your nose, coughing, or sneezing; going to the bathroom; and before eating or preparing food. Use hand woodwind instruments inspector if soap and water are not available. Use an alcohol-based hand woodwind instruments inspector with at least 60% alcohol, covering all surfaces of your hands and rubbing them together until they feel dry. Soap and water are the best option, especially if your hands are visibly dirty. \ Avoid touching your eyes, nose, and mouth with unwashed hands. Avoid sharing personal household items. Do not share dishes, drinking glasses, cups, eating utensils, towels, or bedding with other people in your home. Wash these items thoroughly after using them with soap and water or put them in the assembly manager. Clean all high-touch surfaces everyday. Clean and disinfect high-touch surfaces in your sick room and bathroom. Let someone else clean and disinfect surfaces in common areas, but not your bedroom and bathroom. If a caregiver or other person needs to clean and disinfect a sick person s bedroom or bathroom, they should do so on an as-needed basis. The caregiver/other person should wear a mask and wait as long as possible after the sick person has used the bathroom High-touch surfaces include phones, remote controls, counters, tabletops, doorknobs, bathroom fixtures, toilets, keyboards, tablets, and bedside tables. Clean and disinfect areas that may have blood, stool, or body fluids on them. Use household oil laboratory analyst and disinfectants. Clean the area or item with soap and water or another detergent if it is dirty. Then use a household disinfectant. Be sure to follow the instructions on the label to ensure safe and effective use of the product. Many products recommend keeping the surface wet for several minutes to ensure germs are killed. Many also recommend precautions such as wearing gloves and making sure you have good ventilation during use of the product. Most EPA-registered household disinfectants should be effective. How to discontinue home isolation. People with COVID-19 who have stayed home (home isolated) can stop home isolation under the following conditions: If you will not have a test to determine if you are still contagious, you can leave home after these three things have happened: You have had no fever for at least 72 hours (that is three full days of no fever without the use of medicine that reduces fevers) AND other symptoms have improved (for example, when your cough or shortness of breath has improved) AND at least 10 days have passed since your symptoms first appeared. If you will be tested to determine if you are still contagious, you can leave home after these three things have happened: You no longer have a fever (without the use of medicine that reduces fevers) AND other symptoms have improved (for example, when your cough or shortness of breath has improved) AND you received two negative tests in a row, 24 hours apart. Your doctor will follow CDC guidelines. In all cases, follow the guidance of your healthcare provider and local health department. The decision to stop home isolation should be made in consultation with your healthcare provider and state and local health departments. Local decisions depend on local circumstances. cdc.gov/coronavirus Follow Up Care 08/16/2021 21:12:40 With:GUY PATIÑO MD Address: [address] [place] [address] [place] [address] [phone] When:2-4 days [facility] Evaluation + Plan note Note Date & Type Note Facility Evaluation + Plan note No data available for this section [facility] Summary Purpose Family History No Family History Records FoundNo Family History Records Found No data available for this section No Family History Records Found Advance Directives No Advanced Directives Records FoundNo Advanced Directives Records FoundNo Advanced Directives Records Found Additional Source Comments INFORMATION SOURCE (unrecogn ized section and content) DATE CREATED AUTHOR AUTHOR'S ORGANIZ ATION 02/07/2018 [facility] DATE CREATED AUTHOR AUTHOR'S ORGANIZ ATION 05/19/2023 [facility] ([place]) Patient Care team informatio n (unrecognized section and content) Care Team Personnel Name: GUY PATIÑO MD Member Role: Primary Care Physician Address: Address: [address] [place] [id number]- [place] Name: KRANTHI BURNETT MD Position: ED Physician Member Role: ED Physician Address: Address: [address] [place] [id number]- Name: Leeanne Wayne RN Position: AO RN Member Role: RN Care Team Related Persons Name: DOUGIE BUSTAMANTE Address: Home [address] [place] [address] [place] Name: RAKESH DOWELL Address: Home [address] [place] [address] [address] [place] [address] FOR RECORDS PERTAINING TO PATIENTS WHO ARE OR HAVE BEEN ENROLLED IN A CHEMICAL DEPENDENCY/SUBSTANCEABUSE PROGRAM, SOME INFORMATION MAY BE OMITTED. This clinical summary was aggregated from multiple sources. Caution should be exercised in using it in the provision of clinical care. This summary normalizes information from multiple sources, and as a consequence, information in this document may materially change the coding, format and clinical context of patient data. In addition, data may be omitted in some cases. CLINICAL DECISIONS SHOULD BE BASED ON THE PRIMARY CLINICAL RECORDS. [facility]. provides no warranty or guarantee of the accuracy or completeness of information in this document.
[2023-09-04 16:47] LABS: Anion Gap 6 (5-15); BUN 5 mg/dL (7-18); BUN/Creat Ratio 8.1 RATIO (10-20); Chloride 103 mmol/L (98-107); Creatinine, Serum 0.62 mg/dL (0.55-1.02); EST Glomerular Filtration Rate 115 mL/min (>60); Est Glom Filt Rate - Afr Amer 140 mL/min (>60); Estimated Creatinine Clearance 175.53 ml/min; Glucose 101 mg/dL (74-106); Potassium 3.7 mmol/L (3.5-5.1); Sodium Level 136 mmol/L (136-145)
--- NOTE | 2023-09-04 18:24 | EX.PCM.CON.S ---
Assessment & Plan Assessment/Plan (1) Incisional hernia without obstruction or gangrene: (2) Ventral hernia: PLAN: Plan Patient is a 38-year-old female with notable history for morbid obesity and tobacco use, who has recently been under workup for possible ventral hernia due to ongoing pain complaints and presents today for acute exacerbation of this pain after strenuous activity while changing a tire. CT imaging of the abdomen pelvis showed acutely?incarcerated omentum within the hernia defect, however, there is no mention by radiology?nor seen in my independent review of the imaging?findings of strangulation of this fatty content. On exam, patient's hernia contents were soft and there is no overlying skin changes. They appeared to reside directly deep to patient's prior supraumbilical incision from her remote cholecystectomy. I directed her through several maneuvers to try to relax her abdominal wall and did feel reduction of the hernia contents on exam. Patient confirmed this reduction as well. She shared, however, that she remained sore from all the reduction attempts. I discussed with her that her situation was not to be considered an emergent situation, but I do believe she will require intervention sooner than later to minimize her risk for re? presentation. I was careful to discuss with her that both her higher BMI and her concurrent tobacco habit put her at increased risk for hernia recurrence. I shared with her that, optimally, we would look to place mesh at the time of operation to reduce her risk for recurrence. She has some reservations about the use of mesh due to an unfavorable outcome with her stepfather, but upon hearing my rationale expressed understanding for its use. I discussed minimally invasive options as a means of hopefully reducing her wound risk. Ultimately, I concluded that she would most likely benefit the most from a laparoscopic hernia repair with mesh performed sometime in the next month. I have encouraged her to continue to work towards tobacco cessation and in the meantime assume a lifting restriction of no more weight than 10 pounds. I have also provided her with red flag warning signs that would represent potential bowel incarceration/strangulation. She expressed understanding of this information and also confirmed that she would keep follow-up with me in another 2 weeks as an outpatient. HPI Consult Data Date of Consult: 09/04/23 HPI Narrative Reason for Consultation: Umbilical hernia HPI Narrative: NEGRITO URIARTE, is a 38 F who presents to [facility] with complaints of severe periumbilical pain after tightening the lug knots on her mother's vehicle earlier this morning when she required a tire change. She shares that she developed such severe abdominal pain that she began experiencing some associated nausea and vomiting as well. She flatly states that she tried her best not to present, but ultimately the symptoms became too unbearable that she needed to seek evaluation. Her ED workup has included laboratories that show a mild leukocytosis and CT imaging of the abdomen pelvis which shows a fat?containing ventral hernia. Emergency medicine reported that patient simply had ongoing pain and it was difficult to determine the status of her hernia given her body habitus. Mrs. Uriarte states that she was first aware of a possible hernia over the past few days. She shares that for the last 1 week she has had pain and sought evaluation with Bliane Gage NP. She suggests that there was a delay in processing the request for CT imaging, but following CT imaging the plan had been to establish surgical consultation for possible hernia repair. Patient is known to me from a prior encounter for her thyroid nodularity and underwent biopsy in January of last year. Patient's surgical history includes prior cholecystectomy performed here at [facility] in the last 5 years. Patient does continue to smoke tobacco, but states that she has been trying to cut back and presently only smokes 1/2 pack/day. [facility] Medical History Anemia Anxiety Bipolar depression manic phase Bipolar disorder Chronic cough Chronic low back pain COPD (chronic obstructive pulmonary disease) COVID-19 Edentulous Herniated disc History of brain disorder Hydocephalus Hypothyroidism Kidney stones Obesity ZANA (obstructive sleep apnea) Panic attacks Smoker Thyromegaly Wears glasses Home Medications acetaminophen 500 mg tablet (Tylenol Extra Strength) 500 mg PO Q6H PRN Fever 04/28/22 [History Last Taken Unknown] hydroxyzine HCl 10 mg tablet 10 mg PO TID PRN anxiety #90 tabs 06/08/22 [Rx Last Taken Unknown] escitalopram oxalate 20 mg tablet 20 mg PO DAILY DEPRESSION #90 tabs 12/21/22 [Rx Last Taken Unknown] levothyroxine 50 mcg tablet 50 mcg PO DAILY HYPOTHYROIDISM #90 tabs 12/22/22 [Rx Last Taken Unknown] albuterol sulfate 90 mcg/actuation aerosol inhaler (Ventolin HFA) 2 puff inhalation Q6H PRN shortness of breath or wheezing #8.5 grams 02/08/23 [Rx Last Taken Unknown] albuterol sulfate 90 mcg/actuation aerosol inhaler 2 puff inhalation 6XD PRN shortness of breath or wheezing #6.7 grams 04/07/23 [Rx Last Taken Unknown] albuterol sulfate 90 mcg/actuation aerosol inhaler (Ventolin HFA) 1 - 2 puff inhalation Q4H PRN PRN Wheezing ##1 04/07/23 [Rx Last Taken Unknown] benzocaine 6 mg-menthol 10 mg lozenges (Chloraseptic Sore Throat) 1 veronica mucous membrane Q2H PRN PRN SORE THROAT #0 ea 04/22/23 [Rx Last Taken Unknown] dextromethorphan-guaifenesin ER 60 mg-1,200 mg tab,extend release,12hr (Mucinex DM) 1 tab PO Q12H 7 days #14 tabs 04/22/23 [Rx Last Taken Unknown] prednisone 10 mg tablet 10 mg PO UD #40 tabs 04/22/23 [Rx Last Taken Unknown] sennosides 8.6 mg-docusate sodium 50 mg tablet (Stool Softener-Stimulant Laxative) 2 tab PO BID PRN PRN Constipation #0 tabs 04/22/23 [Rx Last Taken Unknown] Allergy/AdvReac Type Severity Reaction Status Date / Time ceftriaxone sodium Allergy Hives Verified 04/20/23 18:29 [From Rocephin] tramadol Allergy Hives Verified 04/20/23 18:29 bupropion HCl AdvReac MAKES Verified 04/20/23 18:29 [From Wellbutrin] ANXIETY WORSE Family History Grandmother Asthma Thyroid disorder Mother Asthma Thyroid disorder COPD (chronic obstructive pulmonary disease) Aunt Asthma Heart disease Hypertension Thyroid disorder Emphysema, unspecified Grandfather Asthma Diabetes Hypertension Hyperlipidemia COPD (chronic obstructive pulmonary disease) Surgical History D&C History of 3 sections History of ankle surgery History of bilateral tubal ligation History of cholecystectomy History of tonsillectomy left ankle ligament repair Social History household members: family housing: house number of children: 3 current occupational status: unemployed pets and animals: Yes Smoking Status: Current every day smoker tobacco type: cigarettes second hand exposure: Yes alcohol intake: never substance use type: does not use caffeine: No what type of physical activity do you participate in: walking frequency: daily seatbelt use: always do you feel safe at home: Yes ROS Gastrointestinal Gastrointestinal: Reports abdominal pain, nausea and vomiting; Denies change in bowel habits Physical Exam Const alert Constitutional Narrative: Patient distressed from abdominal discomfort General Appearance: cooperative Nutritional Appearance: obese GI GI Narrative: Morbidly obese, nondistended, soft, nontender to palpation x 4 quadrants. Tenderness found superior to the umbilicus just deep to an incisional scar in the supraumbilical position. Some soft, fatty hernia contents are palpable and with repeated rolling motion reduces back through approximately 2 cm hernia defect. Lab / Micro Data 09/04/23 16:21 09/04/23 16:21 Labs: Laboratory Results - last 24 hr 09/04/23 16:21: WBC 12.6 H, RBC 5.26, Hgb 13.2, Hct 42.6, MCV 81.0, MCH 25.1 L, MCHC 31.0 L, RDW Std Deviation 53.6 H, RDW Coeff of Thony 18.4 H, Plt Count 336, MPV 9.6, Immature Gran % (Auto) 0.500, Neut % (Auto) 60.5, Lymph % (Auto) 29.8, Rincon % (Auto) 5.8, Eos % (Auto) 2.8, Baso % (Auto) 0.6, Absolute Neuts (auto) 7.6, Absolute Lymphs (auto) 3.75, Nucleated RBC % 0, Sodium 136, Potassium 3.7, Chloride 103, Carbon Dioxide 27.0, Anion Gap 6, BUN 5 L, Creatinine 0.62, Estim Creat Clear Calc 175.53, Est GFR (MDRD) Af Amer 140, Est GFR (MDRD) Non-Af 115, BUN/Creatinine Ratio 8.1 L, Glucose 101, Calcium 9.0 Imagaing Radiology Impression Abdomen/Pelvis CT 09/04/23 16:04 IMPRESSION: 1. Limited as above. 2. Small fat-containing umbilical hernia. 3. No other definite acute or significant abnormality seen. Electronically Signed: Alejandro Parra MD at 16:50 EST , Charges/Coding Visit Charges Office Visits / Consults: [id number] ED Visit; Moderate Severity
[2023-09-04] MEDS: HYDROcodone Bitartrate/Apap 5/325 Tablet PO (18:42)
== END 2023-09-04 18:45 | disposition home or self-care (01) ==
PROVIDERS: Emergency Provider Emergency Medicine; PCP Nurse Practitioner Family; Visit Provider Emergency Medicine
DX: K43.9 Ventral hernia without obstruction or gangrene (principal); J44.9 Chronic obstructive pulmonary disease, unspecified; R11.2 Nausea with vomiting, unspecified; E03.9 Hypothyroidism, unspecified; F41.9 Anxiety disorder, unspecified; E66.9 Obesity, unspecified; G47.33 Obstructive sleep apnea (adult) (pediatric); F17.210 Nicotine dependence, cigarettes, uncomplicated; Z86.16 Personal history of COVID-19
CPT/HCPCS: 74177; 80048; 85025; 96374; 96375; 99283; Q9967; A4216; J2405

== ENCOUNTER 2023-09-25 17:58 | Emergency (ER) | payer MEDICARE, MEDICAID, SELFPAY ==
[2023-09-25 17:58] VITALS: BP 136/93; PULSE 107; RESP 22; TEMP 36.3; O2SAT 100
--- NOTE | 2023-09-25 18:08 | CT_ITS ---
STUDY: CT ABDOMEN AND PELVIS WITHOUT CONTRAST REASON FOR EXAM: Female, 38 years old. Pain RADIATION DOSAGE (If Supplied By Facility): CTDIvol = ( 14.46 ) mGy, DLP = ( 1373.64 ) mGycm TECHNIQUE: Transaxial images were obtained from the dome of the diaphragm to the symphysis pubis without oral contrast, and without intravenous contrast. Sagittal and coronal images were reconstructed. Individualized dose optimization techniques were used for this CT. COMPARISON: None. FINDINGS: Mild posterior dependent atelectasis, otherwise clear lung bases. The visualized portions of the heart are within normal limits. Normal liver. There is nonvisualization of the gallbladder consistent with known history of prior cholecystectomy. Normal spleen. Normal pancreas. Normal bilateral adrenal glands. Normal right kidney. Normal left kidney. Normal visualized stomach. There are multiple loops of small bowel with air-fluid level and distended up to 3.3 cm within the left abdomen which may indicate enteritis, cannot exclude ileus versus early or partial obstruction. There is fluid within the colon with decompression of the descending colon with borderline thickening of the wall which may indicate sequela of enteritis, descending colitis versus malabsorption. The appendix is visualized and appears normal. Normal abdominal aorta. Normal inferior vena cava. Normal retroperitoneum. Normal urinary bladder. There is absence of the uterus consistent with a prior hysterectomy. Fat-containing ventral hernia. Degenerative disease of the lower thoracic spine. CT/Abdomen/Pelvis without Cont IMPRESSION: Fluid within the colon which may be associated with sequela of enteritis, descending colitis. Less likely, differential diagnosis includes small bowel ileus versus early obstruction. No acute appendicitis. Status post cholecystectomy and hysterectomy. Otherwise normal abdominal viscera. Electronically Signed: Juliane Rice MD at 19:40 EST ,
--- NOTE | 2023-09-25 18:09 | EDS_ITS ---
HPI HPI - GI History of Present Illness Chief Complaint: Abd Pain Detail of Chief Complaint: Abdominal pain Informant: patient Narrative Narrative: Patient presents to the emergency room with complaint of abdominal pain that started this morning. She has vomited 3 times. She denies diarrhea. She denies urinary symptoms. Patient states the pain wraps from the back on the right side towards the lower groin area. She does have a history of a abdominal wall hernia that is, requires surgical intervention and repair. Patient states that she had to have it reduced a few weeks ago. Patient does have remote hi story of kidney stones. She has had a tubal ligation. She had a cholecystectomy. Patient denies any fevers. [facility] Medical History (Updated 09/25/23 @ 20:[address] Jin Cash, ) Anemia Anxiety Bipolar depression manic phase Bipolar disorder Chronic cough Chronic low back pain COPD (chronic obstructive pulmonary disease) COVID-19 Edentulous Herniated disc History of brain disorder Hydocephalus Hypothyroidism Kidney stones Obesity ZANA (obstructive sleep apnea) Panic attacks Smoker Thyromegaly Wears glasses Home Medications acetaminophen 500 mg tablet (Tylenol Extra Strength) 500 mg PO Q6H PRN Fever 04/28/22 [History Last Taken Unknown] hydroxyzine HCl 10 mg tablet 10 mg PO TID PRN anxiety #90 tabs 06/08/22 [Rx Last Taken Unknown] escitalopram oxalate 20 mg tablet 20 mg PO DAILY DEPRESSION #90 tabs 12/21/22 [Rx Last Taken Unknown] levothyroxine 50 mcg tablet 50 mcg PO DAILY HYPOTHYROIDISM #90 tabs 12/22/22 [Rx Last Taken Unknown] albuterol sulfate 90 mcg/actuation aerosol inhaler (Ventolin HFA) 2 puff inhalation Q6H PRN shortness of breath or wheezing #8.5 grams 02/08/23 [Rx Last Taken Unknown] albuterol sulfate 90 mcg/actuation aerosol inhaler 2 puff inhalation 6XD PRN shortness of breath or wheezing #6.7 grams 04/07/23 [Rx Last Taken Unknown] albuterol sulfate 90 mcg/actuation aerosol inhaler (Ventolin HFA) 1 - 2 puff inhalation Q4H PRN PRN Wheezing ##1 04/07/23 [Rx Last Taken Unknown] benzocaine 6 mg-menthol 10 mg lozenges (Chloraseptic Sore Throat) 1 veronica mucous membrane Q2H PRN PRN SORE THROAT #0 ea 04/22/23 [Rx Last Taken Unknown] dextromethorphan-guaifenesin ER 60 mg-1,200 mg tab,extend release,12hr (Mucinex DM) 1 tab PO Q12H 7 days #14 tabs 04/22/23 [Rx Last Taken Unknown] prednisone 10 mg tablet 10 mg PO UD #40 tabs 04/22/23 [Rx Last Taken Unknown] sennosides 8.6 mg-docusate sodium 50 mg tablet (Stool Softener-Stimulant Lax ative) 2 tab PO BID PRN PRN Constipation #0 tabs 04/22/23 [Rx Last Taken Unknown] dicyclomine 10 mg capsule 20 mg (2 x 10 mg) PO TIDAC #20 CAPSULES 09/25/23 [Rx Last Taken Unknown] ondansetron 4 mg disintegrating tablet 4 mg PO Q8H PRN PRN Nausea #10 tabs 09/25/23 [Rx Last Taken Unknown] Allergy/AdvReac Type Severity Reaction Status Date / Time ceftriaxone sodium Allergy Hives Verified 04/20/23 18:29 [From Rocephin] tramadol Allergy Hives Verified 04/20/23 18:29 bupropion HCl AdvReac MAKES Verified 04/20/23 18:29 [From Wellbutrin] ANXIETY WORSE Family History Grandmother Asthma Thyroid disorder Mother Asthma Thyroid disorder COPD (chronic obstructive pulmonary disease) Aunt Asthma Heart disease Hypertension Thyroid disorder Emphysema, unspecified Grandfather Asthma Diabetes Hypertension Hyperlipidemia COPD (chronic obstructive pulmonary disease) Surgical History (Updated 09/25/23 @ 18:30 by Yodit Ramires) D&C H/O: hysterectomy History of 3 sections History of ankle surgery History of bilateral tubal ligation History of cholecystectomy History of tonsillectomy left ankle ligament repair Social History household members: family housing: house number of children: 3 current occupational status: unemployed pets and animals: Yes Smoking Status: Current every day smoker tobacco type: cigarettes second hand exposure: Yes alcohol intake: never substance use type: does not use caffeine: No what type of physical activity do you participate in: walking frequency: daily seatbelt use: always do you feel safe at home: Yes ROS ROS ED Review of Systems ROS Unobtainable: other Constitutional Constitutional ED: Reports lethargy; Denies chills, fever(s), sweats or weight loss Eyes Eyes: Denies blurry vision, change in vision or diplopia ENT ENT ED: Denies rhinorrhea or sore throat Cardiovascular Cardiovascular: Denies chest pain, orthopnea or racing heartbeat Respiratory/Chest Respiratory/Chest: Denies cough, dyspnea, dyspnea on exertion, orthopnea or sputum Gastrointestinal Gastrointestinal: Reports abdominal pain, nausea and vomiting; Denies diarrhea Genitourinary Genitourinary ED: Denies dysuria, hematuria or urinary frequency Musculoskeletal Musculoskeletal: Denies arthralgias, back pain, myalgias or neck pain Integumentary Denies abscess, Abrasions or rash Neurologic Neurologic: Denies headache(s) or weakness Psychiatric Psychiatric: Denies anxiety, depression or suicidal thoughts Endocrine Endocrinology: Denies polydipsia, polyphagia or polyuria Hematologic/Lymphatic Hematologic/Lymphatic: Denies easy bleeding, easy bruising or lymphadenopathy Allergic/Immunologic Allergic/Immunologic ED: Denies mouth swelling, tongue swelling or urticaria EXAM Physical Exam Const Vital Signs: 09/25/23 17:58 Temperature 97.3 F L Temperature Source Temporal Pulse Rate 107 H Respiratory Rate 22 H Blood Pressure 136/93 H Blood Pressure Mean 107 Pulse Ox 100 Oxygen Delivery Method Room Air Positive well nourished and well developed General Appearance ED: well developed and NAD HEENT Reports TM's clear and moist mucous membranes normocephalic and atraumatic; Negative for trauma or tenderness Tympanic Membrane ED: Yes TM's clear Eyes PERRL and EOMs intact bilaterally General Eye ED: Negative for pale conjunctiva or scleral icterus Neck no lymphadenopathy, supple and no JVD General: Negative for tenderness Chest Wall inspection of chest normal and palpation of chest normal Chest: Negative for tenderness Resp normal respiratory effort and clear to auscultation bilaterally Effort and Inspection: Negative for respiratory distress or pain with movement Auscultation: Negative for rhonchi, wheezes or diminished lung sounds Cardio regular rate, regular rhythm, S1 normal heart sound, S2 normal heart sound and no murmurs Peripheral Pulses: pulses 2+ throughout GI normal to inspection, nondistended, normoactive bowel sounds, soft to palpation, non-distended and no masses GI Narrative: Patient morbidly obese therefore exam difficult. She has diffuse tenderness over right lower quadrant radiating towards the right flank. There is no rebound, rigidity, peritoneal signs. No masses palpated. Back/Spine no CVA tenderness and no thoracic nor lumbar tenderness Extremity normal to inspection General Extremety ED: Negative for edema General Extremity: Negative for edema Neuro oriented x3, CN's II-XII intact bilaterally, no sensory deficits noted and gait normal Sensorium / Orientation: awake, alert, oriented to person, oriented to place and oriented to time Motor Exam: strength 5/5 throughout and strength abnormal Psych mental status grossly normal Skin no rashes or lesions noted and no wounds MDM MDM MDM Narrative Medical decision making narrative: Patient presents to the emergency department with vomiting that started this morning and then the abdominal pain began. She denies diarrhea. She has a history of kidney stones and also history of a abdominal hernia for which she is scheduled to follow-up with a general surgeon. In the differential would be kidney stone versus UTI versus appendicitis versus other acute intra-abdominal process such as bowel obstruction or bowel perforation. Patient was medicated with morphine and Zofran and Toradol. She had good pain relief with that. IV line established. She was given normal saline. CBC with differential obtained showed a white count of 11.7 which she chronically seems to have an elevated white blood cell count. Hemoglobin was 13.5 and platelet count was 337. Chemistries unremarkable. Serum hCG was negative. Urinalysis was normal. CT scan of the abdomen pelvis obtained without contrast showed fluid within the colon which may be associated with sequela of enteritis or descending colitis. Less likely would be ileus versus early small bowel obstruction. On repeat examination at 2024 patient feeling improved. She has had no further vomiting. She was able to tolerate ice chips. Patient on exam appears to have a benign abdomen. I suspect she may be developing a viral gastroenteritis potentially given the findings on CT and the fact that she started with vomiting initially and then abdominal pain. Patient would like to go home for symptomatic care and does not want to be admitted at this time although I did offer if she felt uncomfortable going home or was having too much pain. She states that her pain subsided significantly and feels significantly improved. Will start patient on Zofran and write for Pam. Advised to follow-up with her primary care physician within next 3 to 5 days. Patient to return if worsening pain, fever, vomiting, or condition should worsen anyway. Lab Data Attestation: I reviewed the patient's lab results. Labs: Laboratory Results - last 24 hr 09/25/23 09/25/23 18:25 19:50 WBC 11.7 H RBC 5.45 H Hgb 13.5 Hct 43.9 MCV 80.6 L MCH 24.8 L MCHC 30.8 L RDW Std Deviation 53.2 H RDW Coeff of Thony 18.9 H Plt Count 337 MPV 9.8 Immature Gran % (Auto) 0.300 Neut % (Auto) 78.9 H Lymph % (Auto) 14.1 L [place] % (Auto) 4.5 Eos % (Auto) 1.9 Baso % (Auto) 0.3 Absolute Neuts (auto) 9.2 H Absolute Lymphs (auto) 1.65 Nucleated RBC % 0 Sodium 138 Potassium 3.4 L Chloride 105 Carbon Dioxide 27.0 Anion Gap 6 BUN 10 Creatinine 0.56 Est GFR (MDRD) Af Amer 155 Est GFR (MDRD) Non-Af 128 BUN/Creatinine Ratio 17.7 Glucose 109 H Calcium 8.9 Serum , Qual NEGATIVE Urine Color Yellow Urine Clarity Clear Urine pH 6.0 Ur Specific [place] 1.020 Urine Protein 30 H Urine Glucose (UA) Normal Urine Ketones 5 H Urine Occult Blood Negative Urine Nitrite Negative Urine Bilirubin 1 H Urine Urobilinogen 1 H Ur Leukocyte Esterase 100 H Urine RBC 0-5 SEEN Urine WBC 0-5 SEEN Ur Squamous Epith Cells 0-5 SEEN Urine Bacteria RARE Urine Mucus 1+ Radiography Diagnostic Testing: Clinical Impression(s) from Imaging Studies Abdomen/Pelvis CT 09/25/23 18:08 IMPRESSION: Fluid within the colon which may be associated with sequela of enteritis, descending colitis. Less likely, differential diagnosis includes small bowel ileus versus early obstruction. No acute appendicitis. Status post cholecystectomy and hysterectomy. Otherwise normal abdominal viscera. Electronically Signed: Juliane Rice MD at 19:40 EST , Discharge Plan Triage Chief Complaint: Abd Pain ED Provider: Ungur,Remus Dx/Rx/DC Orders Clinical Impression: Abdominal pain, Vomiting Instructions: ED Abdominal Pain Unkn Cause Fem, ED Gastroenteritis, Viral (Adult), ED Vomiting (Adult) Prescriptions: New ondansetron [ondansetron] 4 mg tablet,disintegrating 4 mg PO Q8H PRN PRN (Reason: Nausea) Qty: 10 0RF dicyclomine 10 mg capsule 20 mg PO TIDAC Qty: 20 0RF No Action acetaminophen [Tylenol Extra Strength] 500 mg tablet 500 mg PO Q6H PRN (Reason: Fever) escitalopram oxalate 20 mg tablet 20 mg PO DAILY Qty: 90 3RF albuterol sulfate 90 mcg/actuation HFA aerosol inhaler 2 puff inhalation 6XD PRN (Reason: shortness of breath or wheezing) Qty: 6.7 0RF albuterol sulfate [Ventolin HFA] 90 mcg/actuation HFA aerosol inhaler 1 - 2 puff inhalation Q4H PRN PRN (Reason: Wheezing) Qty: 1 0RF sennosides-docusate sodium [Stool Softener-Stimulant Laxat] 8.6-50 mg Tablet 2 tab PO BID PRN PRN (Reason: Constipation) Qty: 0 0RF Chloraseptic Sore Throat 6-10 mg Lozenge 1 veronica mucous membrane Q2H PRN PRN (Reason: SORE THROAT) Qty: 0 0RF dextromethorphan-guaifenesin [Mucinex DM] 60-1,200 mg tablet extended release 12 hr 1 tab PO Q12H 7 Days Qty: 14 0RF prednisone 10 mg tablet 10 mg PO UD Qty: 40 0RF Rx Instructions: Take 4 tablets daily for 4 days, then 3 daily for 4 days, then 2 daily for 4 days, then 1 day for 4 days hydroxyzine HCl 10 mg tablet 10 mg PO TID PRN (Reason: anxiety) Qty: 90 0RF levothyroxine 50 mcg tablet 50 mcg PO DAILY Qty: 90 1RF albuterol sulfate [Ventolin HFA] 90 mcg/actuation HFA aerosol inhaler 2 puff inhalation Q6H PRN (Reason: shortness of breath or wheezing) Qty: 8.5 1RF Primary Care Provider: Blaine Gage Referrals: Blaine Gage, [employer] [Primary Care Provider] - Disposition Disposition: Home, Self Care
[2023-09-25] MEDS: 0.9% Normal Saline (1000mL) 1,000 ML 125 ML IV (18:19)
[2023-09-25] MEDS: Ondansetron 4 MG/2 ML Vial IV (18:21)
[2023-09-25] MEDS: Ketorolac 15 MG/ML Vial IV (18:21)
[2023-09-25] MEDS: Morphine 4 MG/ML Syringe IV (18:21)
[2023-09-25 18:42] LABS: Absolute Lymphocyte Count 1.65 X10^3/uL (0.83-4.51); Absolute Neutrophil Count 9.2 X10^3/uL (2.0-7.7); Basophil# 0.03 X10^3/uL; Basophil% 0.3 % (0-1); Eosinophil# 0.22 X10^3/uL; Eosinophils% 1.9 % (0-5); Hematocrit 43.9 % (37-47); Hemoglobin 13.5 g/dL (12.0-15.0); Lymphocyte # 1.65 X10^3/ul (0.83-4.51); Lymphocyte % 14.1 % (19-41); Mean Corp Hgb Conc 30.8 g/dL (32-36); Mean Corpuscular Hgb 24.8 pg (27.0-32.0); Mean Corpuscular Volume 80.6 fL (81-99); Mean Platelet Vol. 9.8 fl (6.2-12.0); Monocyte# 0.53 X10^3/uL; Monocyte% 4.5 % (0-10); NRBC Flagged by Analyzer 0 % (0-5); Neutrophil # 9.24 X10^3/uL (2.7-7.7); Neutrophil % 78.9 % (47-70); Platelet Count 337 K/mm3 (150-450); RBC Distribution Width CV 18.9 % (11.6-14.6); RBC Distribution Width SD 53.2 fl (35.1-43.9); Red Blood Count 5.45 M/mm3 (4.2-5.4); White Blood Count 11.7 K/mm3 (4.4-11.0)
[2023-09-25 18:52] LABS: Internal QC Validated? YES +Cl - CLEAR BKGD; Pregnancy, Serum, hCG Quali. NEGATIVE Negative
[2023-09-25 18:54] LABS: Anion Gap 6 (5-15); BUN 10 mg/dL (7-18); BUN/Creat Ratio 17.7 RATIO (10-20); Calcium,Total 8.9 mg/dL (8.5-10.1); Chloride 105 mmol/L (98-107); Creatinine, Serum 0.56 mg/dL (0.55-1.02); EST Glomerular Filtration Rate 128 mL/min (>60); Est Glom Filt Rate - Afr Amer 155 mL/min (>60); Glucose 109 mg/dL (74-106); Potassium 3.4 mmol/L (3.5-5.1); Sodium Level 138 mmol/L (136-145)
--- NOTE | 2023-09-25 19:36 | ED.RN ---
this RN asked pt for a urine sample. pt stated like I told them I can't pee without having some ice chips or some water this RN asked Dr. Cash if pt could have some ice chips at this time. Dr. Cash agreeable to this. pt provided with ice chips.
[2023-09-25 19:58] LABS: Color, Urine Yellow (Yellow); Glucose, Dipstick Normal (Normal); Ketone-Dipstick 5 mg/dl (Negative); Leukocyte Esterase-Dipstick 100 /ul (Negative); Nitrite-Dipstick Negative (Negative); Occult Blood-Urine Negative /ul (Negative); Protein-Dipstick 30 mg/dl (Negative); Urine Clarity Clear (Clear); Urine Urobilinogen 1 mg/dl (Normal)
[2023-09-25 20:03] LABS: Urine Bilirubin Dipstick 1 mg/dL (Negative)
[2023-09-25 20:14] LABS: Red Blood Cells-Urine 0-5 SEEN /hpf (0-5); White Blood Cells 0-5 SEEN /hpf (0-5)
[2023-09-25 20:15] LABS: Bacteria RARE /hpf (None Seen); Mucous, Urine 1+ /hpf (<or=2+); Squamous Epithelial Cells - UA 0-5 SEEN /hpf (5-10)
[2023-09-25 20:35] VITALS: PULSE 81; RESP 20; O2SAT 97
== END 2023-09-25 20:35 | disposition home or self-care (01) ==
PROVIDERS: Emergency Provider Emergency Medicine; PCP Nurse Practitioner Family; Visit Provider Emergency Medicine
DX: R10.9 Unspecified abdominal pain (principal); R11.10 Vomiting, unspecified; G47.33 Obstructive sleep apnea (adult) (pediatric); F17.210 Nicotine dependence, cigarettes, uncomplicated; Z86.16 Personal history of COVID-19
CPT/HCPCS: 74176; 80048; 81001; 84703; 85025; 96374; 96375; 99282; J7030; J2405

== ENCOUNTER → 2023-09-28 | Outpatient (CLI) | payer MEDICARE, MEDICAID, SELFPAY ==
--- OUTSIDE RECORDS SUMMARY | 2023-09-28 11:32 | XMS RPT_ITS | CCD ---
Author Name Unknown Address [address] [place] [address] Organization [facility] Care Team Providers Care Sound Technician Name Role Phone Blaine Mcdowell Unavailable Unavailable Ayla Bates Unavailable Unavailable WISAM Reed RN, Naheed Velasco Unavailable UnavailGuy Marks MD Unavailable [phone] Hyacinth Acharya Unavailable Unavailable Shola, Dawson L Unavailable Unavailable Shola Dawson L Unavailable Unavailable Shola Dawson L Unavailable Unavailable No Family Physician given Unavailable Unavai lable OLDER, CARLTON (BUILDING ESTIMATOR) Unavailable Unavailable OLDER, CARLTON (BUILDING ESTIMATOR) Unavailable Unavailable KENROY GLEZ () Unavailable Unav ailable ANITA LOVE (PT) Unavailable Unavailable OLDER, CARLTON (BUILDING ESTIMATOR) Unavailable Unavailable Becky MENJIVAR (PA-C) Unavailable Unavail able Blaine Mcdowell Unavailable Unavailable [place] MATHEMATICS LECTURER, Courtney S Unavailable GUY PATIÑO MD Primary Care Physician [phone] HORTENCIA CHOUDHARY, KRANTHI Martin Attending Unavailable GUY PATIÑO MD Primary Care Unavailab le Allergies Allergy Classification Reported Allergen(s) Allergy Type Date of Onset Reaction(s) Facility (13 sources) buPROPion; Translations: [Bupropion] drug allergy Very high anxiety [facility] Work Phone: (13 sources) ceftriaxone; Translations: [Ceftriaxone] drug allergy Hives and breaking out with anxiety attacks [facility] Work Phone: (11 sources) traMADol drug allergy Swelling mouth and tongue [facility] Work Phone: (1 source) buPROPion; Translations: [BUPROPION HCL] Drug Allergy 6 [facility] Repository (1 source) ceftriaxone; Translations: [CEFTRIAXONE] Drug Allergy 6 [facility] Repository (3 sources) traMADol; Translations: [TRAMADOL] Drug Allergy 6 [facility] Repository Medications Current Medications Medication Drug Class(es) Dates Sig (Normalized) Sig (Original) [id number] 200 actuat albuterol 0.09 mg/actuat metered dose [...] as needed for severe pain OXYCODONE-ACETAMIN OPHEN [id number] Blaine Lao DO ALPRAZolam 2 mg oral tablet (20 sources) Benzodiazepine Start: 10-01-2014 End: 04-24-2015 take 1 tablet by mouth twice daily as needed for anxiety ALPRAZOLAM 2 MG TABS One tablet by mouth twice daily as needed for anxiety ALPRAZOLAM [id number] Blaine Lao DO Problems Active Problems Problem [...] Body temperature 98.24 [degF] KRANTHI BURNETT MD [facility] 04-17-2023 15:22-0400 Heart rate 92 /min KRANTHI BURNETT MD [facility] 04-17-2023 15:22-0400 Respiratory rate 20 /min KRANTHI BURNETT MD [facility] 04-17-2023 14:55-0400 Heart rate 70 /min KRANTHI BURNETT MD [facility] 04-17-2023 14:55-0400 Respiratory rate 20 /min KRANTHI BURNETT MD [facility] 04-17-2023 14:23-0400 Body temperature 98.6 [degF] KRANTHI BURNETT MD [facility] 04-17-2023 14:23-0400 Diastolic Blood Pressure Non-Invasive 84 1 KRANTHI BURNETT MD [facility] 04-17-2023 14:23-0400 Heart rate 70 /min KRANTHI BURNETT MD [facility] 04-17-2023 14:23-0400 Respiratory rate 20 /min KRANTHI BURNETT MD [facility] 04-17-2023 14:23-0400 Systolic Blood Pressure Non-Invasive 118 1 KRANTHI BURNETT MD [facility] 08-16-2021 22:09-0500 Body height 177.8 cm KIMBERLEY RODRIGUES MD [facility] 08-16-2021 22:09-0500 Body temperature 99.32 [degF] KIMBERLEY RODRIGUES MD [facility] 08-16-2021 22:09-0500 Body weight 146.8 kg KIMBERLEY RODRIGUES MD [facility] 08-16-2021 22:09-0500 Diastolic blood pressure 70 mm[Hg] KIMBERLEY RODRIGUES MD [facility] 08-16-2021 22:09-0500 Heart rate 107 /min KIMBERLEY RODRIGUES MD [facility] 08-16-2021 22:09-0500 Respiratory rate 22 /min KIMBERLEY RODRIGUES MD [facility] 08-16-2021 22:09-0500 Systolic blood pressure 111 mm[Hg] KIMBERLEY RODRIGUES MD [facility] 04-28-2017 09:57-0400 BMI (Body Mass Index) 47.78 kg/m2 Blaine Gage CASH CHECKER-C [facility] Work Phone: 04-28-2017 09:57-0400 Body Temperature 98.3 [degF] Blaine Gage CASH CHECKER-C [facility] Work Phone: 04-28-2017 09:57-0400 BP Diastolic 82 mm[Hg] Blaine Culverder CASH CHECKER-C [facility] Work Phone: 04-28-2017 09:57-0400 BP Systolic 113 mm[Hg] Blaine Culverder CASH CHECKER-C [facility] Work Phone: 04-28-2017 09:57-0400 Height 177.8 cm Blaine Culverder CASH CHECKER-C [facility] Work Phone: 04-28-2017 09:57-0400 Pulse (Heart Rate) 89 /min Blaine Culverder CASH CHECKER-C [facility] Work Phone: 04-28-2017 09:57-0400 Respiratory Rate 18 /min Blaine Culverder CASH CHECKER-C [facility] Work Phone: 04-28-2017 09:57-0400 Weight 151.05 kg Blaine Gage CASH CHECKER-C [facility] Work Phone: 04-18-2017 13:35-0400 BMI (Body Mass Index) 47.57 kg/m2 Courtneysheldon Weavers MATHEMATICS LECTURER [facility] 04-18-2017 13:35-0400 Body Temperature 97.9 [degF] Courtney Weavers MATHEMATICS LECTURER [facility] 04-18-2017 13:35-0400 BP Diastolic 79 mm[Hg] Courtneysheldon Weavers MATHEMATICS LECTURER [facility] 04-18-2017 13:35-0400 BP Systolic 121 mm[Hg] Courtneysheldon Weavers MATHEMATICS LECTURER [facility] 04-18-2017 13:35-0400 Height 177.8 cm Courtneysheldon Weavers MATHEMATICS LECTURER [facility] 04-18-2017 13:35-0400 Pulse (Heart Rate) 107 /min Courtneysheldon Weavers MATHEMATICS LECTURER [facility] 04-18-2017 13:35-0400 Respiratory Rate 17 /min Courtney Lee Ann MATHEMATICS LECTURER [facility] 04-18-2017 13:35-0400 Weight 150.41 kg Courtney Weavers MATHEMATICS LECTURER [facility] 04-05-2017 13:05-0400 BMI (Body Mass Index) 50.17 kg/m2 Guy Patiño MD [facility] Work Phone: 04-05-2017 13:05-0400 Body Temperature 98.7 [degF] Guy Patiño MD [facility] Work Phone: 04-05-2017 13:05-0400 BP Diastolic 73 mm[Hg] Guy Patiño MD [facility] Work Phone: 04-05-2017 13:05-0400 BP Systolic 104 mm[Hg] Guy Patiño MD [facility] Work Phone: 04-05-2017 13:05-0400 Height 172.72 cm Guy Patiño MD [facility] Work Phone: 04-05-2017 13:05-0400 Pulse (Heart Rate) 89 /min Guy Patiño MD [facility] Work Phone: 04-05-2017 13:050400 Weight 149.69 kg Guy Patiño MD [facility] Work Phone: 02-08-2015 15:010400 Body surface area Derived from formula 130.54 mL/min Blaine Gage CASH CHECKER-C [facility] Work Phone: 02-06-2015 15:11-0400 BMI (Body Mass Index) 39.25 kg/m2 Hyacinth Marck [facility] Work Phone: 02-06-2015 15:11-0400 Body Temperature 98.4 [degF] Hyacinth Marck [facility] Work Phone: 02-06-2015 15:11-0400 BP Diastolic 68 mm[Hg] Hyacinth Martchastityy [facility] Work Phone: 02-06-2015 15:11-0400 BP Systolic 112 mm[Hg] Hyacinth Martchastityy [facility] Work Phone: 02-06-2015 15:11-0400 BSA (Body Surface Area) 2.33 m2 Hyacinth Martchastityy [facility] Work Phone: 02-06-2015 15:11-0400 Pulse (Heart Rate) 80 /min Hyacinth Martchastityy [facility] Work Phone: 02-06-2015 15:11-0400 Respiratory Rate 16 /min Hyacinth Marck [facility] Work Phone: 02-06-2015 15:11-0400 Weight 120.57 kg Hyacinth Marck [facility] Work Phone: 09-17-2014 14:21-0500 Height 175.26 cm Hyacinth Martgarrison [facility] Work Phone: Encounters Encounter Date Encounter Type Care Provider Facility Start: 04-17-2023 End: 04-17-2023 Emergency department patient visit KRANTHI BURNETT MD Facility:B Start: 04-17-2023 End: 04-17-2023 Emergency department patient visit KRANTHI BURNETT MD [facility] Start: 08-16-2021 End: 08-16-2021 Emergency department patient visit KIMBERLEY RDORIGUES MD [facility] Start: 01-19-2018 Ambulatory Dawson L Shola Facilit y:[facility] Start: 11-23-2017 Ambulatory Dawson L Shola Facilit y:[facility] Start: 10-05-2017 Ambulatory Dawson L Shola Facilit y:[facility] Start: 03-01-2017 End: 03-03-2017 Ambulatory Becky MORALES (PA-C) [facility] Start: 02-10-2017 End: 02-13-2017 Ambulatory ANITA (PT) [facility] Start: 02-09-2017 End: 02-10-2017 Ambulatory CARLTON (BUILDING ESTIMATOR) [facility] Procedures Date Procedure Procedure Detail Performing Clinician Start: 04-28-2017 End: 04-28-2017 Thyroid stimulating hormone (TSH) Blaine Rod Gage CASH CHECKER-C Start: 04-28-2017 End: 04-28-2017 Thyroxine (T4) free Blaine A Gage CASH CHECKER-C Start: 04-28-2017 End: 04-28-2017 Triiodothyronine (T3) free Blaine A Gage CASH CHECKER-C Start: 04-28-2017 End: 04-28-2017 X-ray exam of ankle Blaine A Gage CASH CHECKER-C Start: 04-20-2017 End: 05-02-2017 Thyroperoxidase antibody Blaine A Gage FN P-C Start: 04-18-2017 End: 04-19-2017 *CBC with Differential Courtney Nance MATHEMATICS LECTURER Work Phone: Start: 04-18-2017 End: 04-19-2017 Thyroid stimulating hormone (TSH) Courtney Nance MATHEMATICS LECTURER Work Phone: Start: 04-05-2017 End: 04-20-2017 Follow Up Appt 6 weeks Guy fowler MD Work Phone: Start: 04-05-2017 End: 04-07-2017 Thyroid stimulating hormone (TSH) Guy Patiño MD Work Phone: Start: 04-05-2017 End: 04-07-2017 Thyroxine (T4) free Guy Newton Work Phone: Start: 02-08-2015 End: 02-08-2015 Urinalysis Blaine Gage CASH CHECKER-C Start: 02-06-2015 End: 02-06-2015 Drain/inject, joint/bursa Blaine Sheth n DO Work Phone: Start: 01-15-2015 End: 01-16-2015 *CHLGC - Chlamydia/GC DNA Probe [id number] Blaine Lao DO Work Phone: Start: 01-15-2015 [...] End: 04-28-2017 Thyroid stimulating hormone (TSH) *TSH [facility] Work Phone: Start: 05-29-2017 End: 04-28-2017 Thyroxine (T4) free *T4 free [facility] Work Phone: Start: 05-22-2017 End: 04-28-2017 Thyroid stimulating hormone (TSH) *TSH [facility] Work Phone: Start: 05-22-2017 End: 04-28-2017 Thyroxine (T4) free *T4 free [facility] Work Phone: Start: 05-22-2017 End: 04-28-2017 Triiodothyronine (T3) free *T3-Free [facility] Work Phone: Start: 05-17-2017 End: 05-17-2017 Appointment Appointment [facility] Work Phone: Start: 04-28-2017 End: 04-28-2017 Appointment Appointment [facility] Work Phone: Start: 04-28-2017 End: 04-28-2017 Pain Management Referral Pain Management Referral Brenda Pascual, [address] [place] [address], [place] [address], [place], [address] [facility] Work Phone: Start: 04-28-2017 End: 04-28-2017 X-ray exam of ankle X-Ray, Ankle [facility] Work Phone: Start: 04-20-2017 End: 04-28-2017 Thyroperoxidase antibody [facility] Work Phone: Start: 04-18-2017 End: 04-18-2017 Appointment Appointment [facility] Start: 04-18-2017 End: 04-19-2017 *CBC with Differential *CBC with Differential [facility] Start: 04-18-2017 End: 04-19-2017 Thyroid stimulating hormone (TSH) *TSH [facility] Start: 04-18-2017 End: 04-18-2017 Transvaginal us, non-ob US Transvaginal [facility] Start: 04-18-2017 End: 04-18-2017 Us exam, pelvic, complete US Pelvis [facility] Start: 04-05-2017 End: 04-05-2017 Appointment Appointment [facility] Work Phone: Start: 04-05-2017 End: 04-20-2017 Follow Up Appt 6 weeks Follow Up Appt 6 weeks [facility] Work Phone: Start: 04-05-2017 End: 04-07-2017 Thyroid stimulating hormone (TSH) *TSH [facility] Work Phone: Start: 04-05-2017 End: 04-07-2017 Thyroxine (T4) free *T4 free [facility] Work Phone: Start: 04-05-2017 End: 04-06-2017 Us exam of head and neck US Thyroid (Soft tissue neck) [facility] Work Phone: Start: 02-26-2015 End: 02-26-2015 Mri jnt of lwr extre w/o dye MRI Joint Lower Extremity [facility] Work Phone: Start: 02-06-2015 End: 02-06-2015 Kenalog per 10 mg Kenalog per 10 mg [facility] Work Phone: Start: 01-15-2015 End: 01-16-2015 *CHLGC - Chlamydia/GC DNA Probe [id number] *CHLGC - Chlamydia/GC DNA Probe 80108 [facility] Work Phone: Start: 01-15-2015 End: 01-17-2015 *HIV antibody *HIV antibody [facility] Work Phone: Start: 01-15-2015 End: 01-23-2015 Reagin antibody presence *RPR [facility] Work Phone: Start: 12-16-2014 End: 12-16-2014 B-HCG *HCGT - HCG Titer Quant., Serum [facility] Work Phone: Start: 11-03-2014 End: 11-03-2014 X-ray exam of ankle X-Ray, Ankle [facility] Work Phone: Start: 11-03-2014 End: 11-03-2014 X-ray exam, knee, 4 or more X-Ray, Knee [facility] Work Phone: Payers Date Payer Category Payer Unknown [id number] 2016 Unknown [id number] 1987 Unknown [id number] Social History Date Type Detail Facility Smokes tobacco d aily (finding) [facility] Sex Assigned At Female [facility] Start: 04-17-2023 Tobacco smoking status Heavy t obacco smoker (finding) [facility] Functional Status Date Assessment Result Facility 04-17-2023 Functional Status Assistive Device None A [facility] 04-17-2023 Functional Status Standard Safet y ID band on, Call device within reach, Bed in low position, Wheels locked [facility] Mental Status Date Assessment Result Facility 04-17-2023 Mental Status Orientation Oriented x 4 [facility] 04-17-2023 Mental Status [facility] Discharge instructions 04-17-2023 Note Date & [...] exposed to secondhand smoke. You may use rpua-rdj-vstnjdf medicine to control fever or pain, unless [...] loosen secretions in the nose and lungs. Dsqh-yfz-fptpjyb cough, cold, and sore-throat medicines will not [...] shortness of breath, or pain with breathing [id number] [employer] [place] [address], [place] [address]. All rights reserved. This information is not intended as a substitute for professional medical care. Always follow your healthcare professional's instructions. Follow Up Care 04/17/2023 14:16:54 With:GUY PATIÑO MD Address: [place] [address] [phone] When:2-4 days [facility] Clinical Note 04-17-2023 Note Date & Type Note Facility 04-17-2023 Note Discharge Instructions Thank you for allowing [facility] to assist you with your healthcare needs. The following is important discharge information regarding your hospital visit. Diagnosis from Today's Visit Bronchitis Cough What to Do Next Instructions from Your Care Team No qualifying data available. Post Acute Orders No qualifying data available. You Need to Schedule the Following Appointments Follow Up with GUY PATIÑO MD When Within 2-4 days [facility] [place] [phone] Allergies Rocephin Ultram Wellbutrin Medications Please ask [...] may report side effects to FDA at 6-227-DOC-7287. What other drugs will affect prednisone? Sometimes [...] may affect prednisone. This includes prescription and rxex-whf-ealhvzc medicines, vitamins, and herbal products. Not all [...] to ensure that the information provided by [employer]. ('[employer]') is accurate, up-to-date, and complete, but no guarantee is made to that effect. Drug information contained herein may be time sensitive. [employer] information has been compiled for use by healthcare practitioners and consumers in the [place] and therefore [employer] does not warrant that uses outside of the [place] are appropriate, unless specifically indicated otherwise. [employer] drug information does not endorse drugs, diagnose patients or recommend therapy. [employer] drug information is an informational resource designed [...] effective or appropriate for any given patient. [employer] does not assume any responsibility for any aspect of healthcare administered with the aid of information [employer] provides. The information contained herein is not intended to cover all possible uses, directions, precautions, warnings, drug interactions, allergic reactions, or adverse effects. If you have questions about the drugs you are taking, check with your doctor, nurse or pharmacist. Copyright 8944-1900 [employer]. Version: 10.. Revision Date: 11/08/2018. codeine and [...] may report side effects to FDA at 3-690-LTB-9296. What other drugs will affect codeine and [...] with codeine and guaifenesin, including prescription and qljd-nzh-naemxtr medicines, vitamins, and herbal products. Tell your [...] to ensure that the information provided by [employer] ('[employer]') is accurate, up-to-date, and complete, but no guarantee is made to that effect. Drug information contained herein may be time sensitive. [employer] information has been compiled for use by healthcare practitioners and consumers in the [place] and therefore [employer] does not warrant that uses outside of the [place] are appropriate, unless specifically indicated otherwise. [employer]'s drug information does not endorse drugs, diagnose patients or recommend therapy. [employer] drug information is an informational resource designed [...] effective or appropriate for any given patient. [facility] does not assume any responsibility for any aspect of healthcare administered with the aid of information [facility] provides. The information contained herein is not intended to cover all possible uses, directions, precautions, warnings, drug interactions, allergic reactions, or adverse effects. If you have questions about the drugs you are taking, check with your doctor, nurse or pharmacist. Copyright 1008-0062 [facility]. Version: 10.. Revision Date: 03/06/2023. Education Materials [...] exposed to secondhand smoke. You may use hboy-mpe-bgvkwmy medicine to control fever or pain, unless [...] loosen secretions in the nose and lungs. Gvif-ape-mdhsolb cough, cold, and sore-throat medicines will not [...] shortness of breath, or pain with breathing 7814-0662 [employer]. [address] [place] [address], [place] [address]. All rights reserved. This information is not intended as a substitute for professional medical care. Always follow your healthcare professional's instructions. Additional Information VACCINATE! IT SAVES LIVES! Members of the community who have not yet received the COVID-19 vaccine and would like to receive it can visit one of [facility] vaccine clinics. There are many vaccine clinic locations within the State. For locations and available times, please visit www.gettheshot.coronavirus.[place].gov/. It is important to note that some COVID mobile vaccine clinics are held outdoors and may be canceled in rainy or stormy conditions. To learn more about pediatric vaccinations (ages 5-11), we invite you to visit the [employer] webpage. https://www.[employer].org/pages/2 069-Pazbh-Dpaofzhjwki-Frequently-Asked -Questions.html To learn more about the COVID-19 vaccine, we invite you to visit the CDC website for a list of frequently asked questions. https://www.cdc.gov/coronavirus/2019-n cov/vaccines/faq.html [facility] Patient Portal Access Instructions: Stay connected with your healthcare team and access your personal medical information anytime with the [employer] Patient Portal. If you would like a full copy of your medical records please contact the [facility] Medical Records Department Monday through Monday between 8a.m. and 4:30p.m. Please follow the directions below to access the portal: 1.Access the email account you provided upon registration to the hospital.2.Look for an invitation email from [facility].3.Open the email and access the invitation link: Accept Invitation to [facility]4.Fill in the required watkins to create your account. Sign into www.[employer] with your username and password that you [...] you will allow to register on the [employer] Patient Portal for access to your information. You can also access the [employer] [facility] Patient Portal on the [employer] devan. Simply click on Health Records under Health Data and then click on the [employer] logo. HOW TO SAFELY DISPOSE OF PRESCRIPTION [...] Call your local pharmacy or go to http://[employer].Gun.io/5I4Ak8s to find one close to you.3.Make use of household items: Use cat litter or old coffee grounds to dispose medications if other options are not available. Mix your drugs with these household products, seal them in an airtight container and throw it into the garbage. Call [facility]: [phone] to be sure your drugs can be [...] aware that I should contact my doctor. Patient/Yard Crane Operator Signature: _ Date/Time: Relationship to Patient: Witness Name/Signature: Date/Time: [facility] Clinical Note 04-17-2023 Note Date & [...] Date: 04/17/2023 3:21:48 PM Ordering Provider: KRANTHI [facility] Discharge instructions 08-17-2021 Note Date & Type Note Facility 08-17-2021 Hospital Discharg e instructions Patient Education 08/16/2021 22:13:27 COVID-19 Prevent the Spread of COVID-19 If You Are Sick (12/31/2019)(CUSTOM) Prevent the Spread of COVID-19 If You Are Sick Accessible version: https://www.cdc.gov/coronaviru s/2019-ncov/tk-woo-ezf-sick/st joo-zuse-mdmo.html If you are sick with COVID-19 or [...] if you have questions about pets: https://www.cdc.gov/coronaviru s/2019ncov/faq.html#JTBEY33kaq mals Monitor your symptoms. Common symptoms of [...] and need to call 911, notify the technical operator that you have or think you [...] clean your hands with an alcohol-based hand coo that contains at least 60% alcohol. Clean your hands often. Wash your hands often with soap and water for at least 20 seconds. This is especially important after blowing your nose, coughing, or sneezing; going to the bathroom; and before eating or preparing food. Use hand coo if soap and water are not available. Use an alcohol-based hand coo with at least 60% alcohol, covering all [...] and water or put them in the shop cooper. Clean all high-touch surfaces everyday. Clean and [...] or body fluids on them. Use household duct installer and disinfectants. Clean the area or item [...] Care 08/16/2021 21:12:40 With:GUY PATIÑO MD Address: [address] [place] [address] [place] [address]- [phone] When:2-4 days [facility] Evaluation + Plan note Note Date & Type Note Facility Evaluation + Plan note No data available for this section [facility] Summary Purpose Family History No Family History Records FoundNo Family History Records Found No data available for this section No Family History Records Found Advance Directives No Advanced Directives Records FoundNo Advanced Directives Records FoundNo Advanced Directives Records Found Additional Source Comments INFORMATION SOURCE (unrecogn ized section and content) DATE CREATED AUTHOR AUTHOR'S ORGANIZ ATION 02/07/2018 [facility] DATE CREATED AUTHOR AUTHOR'S ORGANIZ ATION 05/19/2023 [facility] ([place]) Patient Care team informatio n (unrecognized section and content) Care Team Personnel Name: GUY PATIÑO MD Member Role: Primary Care Physician Address: Address: [address] [place] [id number]- [place] Name: KRANTHI BURNETT MD Position: ED Physician Member Role: ED Physician Address: Address: [address] [place] [id number]- Name: Leeanne Wayne RN Position: AO RN Member Role: RN Care Team Related Persons Name: DOUGIE BUSTAMANTE Address: Home [address] [place] [address] [place] Name: RAKESH DOWELL Address: Home [address] [place] [address] [address] [place] [address] FOR RECORDS PERTAINING TO PATIENTS WHO ARE [...] BE BASED ON THE PRIMARY CLINICAL RECORDS. [facility]. provides no warranty or guarantee of the accuracy or completeness of information in this document.
== END | disposition home or self-care (01) ==
LOC: LABSPEC 10:07
PROVIDERS: PCP Nurse Practitioner Family; Referring Provider Surgery; Visit Provider Surgery
DX: K43.2 Incisional hernia without obstruction or gangrene (principal)
CPT/HCPCS: 87081

== ENCOUNTER 2023-11-02 09:57 | Day surgery (SDC) | payer MEDICARE, MEDICAID, SELFPAY ==
[2023-10-27 08:13] LABS: Hematocrit 41.5 % (37-47); Hemoglobin 12.7 g/dL (12.0-15.0); Mean Corp Hgb Conc 30.6 g/dL (32-36); Mean Corpuscular Hgb 25.1 pg (27.0-32.0); Mean Platelet Vol. 9.6 fl (6.2-12.0); Platelet Count 286 K/mm3 (150-450); RBC Distribution Width CV 18.8 % (11.6-14.6); RBC Distribution Width SD 55.1 fl (35.1-43.9); Red Blood Count 5.06 M/mm3 (4.2-5.4); White Blood Count 11.7 K/mm3 (4.4-11.0)
[2023-10-27 08:45] LABS: Free T3 2.8 pg/mL (2.18-3.98); T4 Total, Thyroxin 5.9 ug/dL (4.8-13.9)
[2023-10-27 08:55] LABS: Thyroid Stim Hormone (TSH) 9.38 uIU/mL (0.358-3.74)
[2023-10-28 04:08] LABS: Thyroid Peroxidase AB > 600 IU/mL (0-34)
[2023-11-02] VITALS (11 sets, daily range): BP systolic 108–136; BP diastolic 48–101; PULSE 92–102; RESP 16–18; TEMP 36.2–36.8; O2SAT 90–99; BMI 52.2
[2023-11-02] MEDS: Lactated Ringers 1,000 ML 15 ML IV (10:23)
[2023-11-02] MEDS: Clindamycin 900 MG/50 ML BAG 75 MG IV (11:28)
--- NOTE | 2023-11-02 11:31 | HP.PCM_ITS ---
History and Physical Date of Admission: 11/02/23 Date of Service: 09/28/23 MR#: [id number] Acct: [id number] Name: NEGRITO BUSTAMANTE Rep #: [id number] : 1985 Provider: Dr. Yemi Benjamin MD Age/Sex: 38/F Location: [facility] Status: Signed Intake Vital Signs 09/04/2414:55 09/13/2408:40 09/25/2416:58 09/28/2407:38 Height 5 ft 10 in 5 ft 10 in 5 ft 10 in BP 122/87 H Blood Pressure Location Lt radial Position Sitting Respiration 17 Pulse 97 Pulse Source Monitor Pulse Oximetry (%) 98 Oxygen Delivery Method room air Intake Visit Reasons: ER FU, HERNIA Chief Complaint: ER fu, hernia Is patient in pain?: Yes Allergies ceftriaxone sodium [From Rocephin] Allergy (Verified 09/28/23 08:39) Hivestramadol Allergy (Verified 09/28/23 08:39) Hivesbupropion HCl [From Wellbutrin] Adverse Reaction (Verified 09/28/23 08:39) MAKES ANXIETY WORSE Medications acetaminophen 500 mg tablet (Tylenol Extra Strength) 500 mg PO Q6H PRN Fever 04/28/22 [History Confirmed 09/28/23] hydroxyzine HCl 10 mg tablet 10 mg PO TID PRN anxiety #90 tabs 06/08/22 [Rx Confirmed 09/28/23] escitalopram oxalate 20 mg tablet 20 mg PO DAILY DEPRESSION #90 tabs 12/21/22 [Rx Confirmed 09/28/23] levothyroxine 50 mcg tablet 50 mcg PO DAILY HYPOTHYROIDISM #90 tabs 12/22/22 [Rx Confirmed 09/28/23] albuterol sulfate 90 mcg/actuation aerosol inhaler (Ventolin HFA) 2 puff inhalation Q6H PRN shortness of breath or wheezing #8.5 grams 02/08/23 [Rx Confirmed 09/28/23] albuterol sulfate 90 mcg/actuation aerosol inhaler 2 puff inhalation 6XD PRN shortness of breath or wheezing #6.7 grams 04/07/23 [Rx Confirmed 09/28/23] albuterol sulfate 90 mcg/actuation aerosol inhaler (Ventolin HFA) 1 - 2 puff inhalation Q4H PRN PRN Wheezing ##1 04/07/23 [Rx Confirmed 09/28/23] benzocaine 6 mg-menthol 10 mg lozenges (Chloraseptic Sore Throat) 1 veronica mucous membrane Q2H PRN PRN SORE THROAT #0 ea 04/22/23 [Rx Confirmed 09/28/23] dextromethorphan-guaifenesin ER 60 mg-1,200 mg tab,extend release,12hr (Mucinex DM) 1 tab PO Q12H 7 days #14 tabs 04/22/23 [Rx Confirmed 09/28/23] prednisone 10 mg tablet 10 mg PO UD #40 tabs 04/22/23 [Rx Confirmed 09/28/23] sennosides 8.6 mg-docusate sodium 50 mg tablet (Stool Softener-Stimulant Laxative) 2 tab PO BID PRN PRN Constipation #0 tabs 04/22/23 [Rx Confirmed 09/28/23] dicyclomine 10 mg capsule 20 mg (2 x 10 mg) PO TIDAC #20 CAPSULES 09/25/23 [Rx Confirmed 09/28/23] ondansetron 4 mg disintegrating tablet 4 mg PO Q8H PRN PRN Nausea #10 tabs 09/25/23 [Rx Confirmed 09/28/23] PFSH Medical History Anemia Anxiety Bipolar depression manic phase Bipolar disorder Chronic cough Chronic low back pain COPD (chronic obstructive pulmonary disease) COVID-19 Edentulous Herniated disc History of brain disorder Hydocephalus Hypothyroidism Kidney stones Obesity ZANA (obstructive sleep apnea) Panic attacks Smoker Thyromegaly Wears glasses Surgical History D&C H/O: hysterectomy History of 3 sections History of ankle surgery History of bilateral tubal ligation History of cholecystectomy History of tonsillectomy left ankle ligament repair Family History Grandmother Asthma Thyroid disorderMother Asthma Thyroid disorder COPD (chronic obstructive pulmonary disease)Aunt Asthma Heart disease Hypertension Thyroid disorder Emphysema, unspecifiedGrandfather Asthma Diabetes Hypertension Hyperlipidemia COPD (chronic obstructive pulmonary disease) Social History household members: family housing: house number of children: 3 current occupational status: unemployed pets and animals: Yes Smoking Status: Current every day smoker tobacco type: cigarettes second hand exposure: Yes alcohol intake: never substance use type: does not use caffeine: No what type of physical activity do you participate in: walking frequency: daily seatbelt use: always do you feel safe at home: Yes HPI HPI HPI: Patient is a 38-year-old who presents for who presents for ER follow-up after I saw her in the emergency department the end of last month for pain related to a incisional hernia. She presents today having missed her appointment on 09/22/2023 due to a confusion with the times and stating that she was in the ER earlier this week (09/25/2023) with gastroenteritis symptoms. She shares that she was initially not able to hold anything down with her gastroenteritis symptoms but now experiences only mild nausea with the antiemetic that she was prescribed. She also shares that her abdominal pain seems to be more to the side and where she knows her hernia to be. She shares that she only experiences a bulge when standing but it is not like it kills me when she initially presented to the emergency department. She also confirms that her smoking is getting better. ROS General General: Yes weight change; No appetite, fatigue, colon cancer, breast cancer or weakness HEENT HEENT: Yes swollen glands; No difficulty swallowing, eye injury, eye surgery or hoarseness Endo Endocrine: Yes thyroid disease; No diabetes mellitus, thyroid cancer, Hair loss, heat intolerance or cold intolerance Skin Skin: No rash or changing moles Breast Breast: No left breast lump, right breast lump, nipple discharge, breast pain, abnormal mammogram, abnormal US or breast enlargement Musc Musculoskeletal: Yes back problems; No arthritis, rheumatoid arthritis, gout or joint pain Cardio Cardiovascular: No murmur, pacemaker, heart disease, atrial fibrillation, high blood pressure, heart attack, heart stent, palpitations, shortness of breat with exertion or chest pain Psych Psychiatric: Yes depression and anxiety; No hearing voices Resp Respiratory: No shortness of breath, Yes sleep apnea, No cough, Yes COPD, Yes asthma, No emphysema and No wheezing Gastro Gastrointestinal: Yes abdominal pain, Yes nausea or vomiting, No diarrhea, No constipation, No blood in stool, No acid reflux, No hemorrhoids, No ulcers, No gallbladder problem and No black,tarry stools Clif Hematologic: No blood thinners, No blood disorders, No bleeding, No anemia and No blood clots Neuro Neurologic: No system reviewed and no additional complaints, except as documented, No as per HPI, No abnormal gait, No abnormal hearing, No abnormal movements, No abnormal speech, No behavioral changes, No burning sensations, No confusion, No convulsions, No disequilibrium, No dizziness, No localized weakness, No frequent falls, No headache(s), No lack of coordination, No loss of vision, No memory loss, No numbness, No other visual disturbances, No radicular pain, No restless legs, No sensory deficit, No syncope, No tingling, No tremor(s ), No weakness and No other Exam Const General: cooperative and anxious Orientation: alert, awake and oriented x3 Resp Effort & Inspection: normal respiratory effort GI Other: Morbidly obese with well-healed surgical incision scars. Patient has some right lateral abdominal wall tenderness to palpation but the hernia area remains soft and minimally tender to palpation. It also remains difficult to delineate the fascial defect edges given her obesity. Assessment and Plan Assessment and Plan (1) Incisional hernia without obstruction or gangrene: Status: Acute Comment: Patient with a incisional hernia that was previously evaluated in ER visit due to findings of incarcerated omental fat. At that ER visit I evaluated patient and was able to reduce these contents but discussed with her plans for operative repair. I shared with her that she is at risk for recurrence given both her body habitus as well as her tobacco habit. She shares that she has worked to try to cut back on the cigarettes but does continue to smoke. She continues to be symptomatic with pain at this hernia site and wishes to have it addressed soon. It is apparent that her most recent symptoms are almost certainly separate from this issue and per her CT imaging from 09/25/2023 seem most suggestive of a gastroenteritis. I would like to see her resolve this latter issue before we would tackle a hernia repair. I have discussed with her surgical options including a hybrid approach with open and laparoscopy versus a robotic approach. I shared with her that a robotic approach would hold a marginal advantage over the laparoscopy/hybrid approach given that we would not need to make an incision over her hernia defect. She seems convinced by this rationale and is willing to wait for robot availability. In the interim we will obtain a nares swab to try to minimize her risk for cross-contamination to her implanted mesh from any nares colonization. Plan: ? Robot assisted incisional hernia repair with mesh placement ? Follow-up swab of nares for MRSA screening (2) Hypothyroidism: Status: Acute Comment: Patient with TSH of 10.4 at last check. Patient states that she is intolerant of levothyroxine and this upsets her stomach. Thus she refuses to take this medication. I note prior TSH is as high as 15+. I shared with her that this unchecked TSH elevation is going to serve to increase the size of her gland?and along with that the thyroid nodularity therein. I offered her consideration of referral to endocrinology for alternative to levothyroxine prescription. Patient readily accepts this offer. I have examined the patient and the H&P has been reviewed. There are no clinical changes since date of exam. Patient confirms that she is continue to have pain from her hernia site. She otherwise denies any new diagnoses or feelings of sickness. Procedure and post procedure expectations were reviewed. We will assess her postoperatively to determine her fitness for discharge to home but there is a possibility she may require overnight observation. Will now proceed to the operating room for scheduled repair of incisional/ventral hernia with robot assist using mesh.
[2023-11-02] MEDS: 0.9% Saline Lock 10 ML Syringe IV (12:04)
[2023-11-02] MEDS: Bupivacaine Mpf 0.5% 30 ML VIAL ×2 (12:04)
[2023-11-02] MEDS: BUPIVACAINE LIPOSOME/PF 20 ML VIAL OPERA.SITE (12:04)
--- NOTE | 2023-11-02 14:37 | OP.PCM_ITS ---
Report of Operation Date of Procedure: 11/02/23 Pre-Operative Diagnosis: Incisional ventral hernia Post-Operative Diagnosis: Same Surgery/Procedure Performed:: 1. Robot-assisted transabdominal preperitoneal incisional hernia pair with underlay mesh 2. Transversus abdominis plane block Surgeon: Yemi Benjamin Type of Anesthesia: General/Supplemental Anesthesiologist: Fausto Kendrick Specimen's removed: None Estimated Blood Loss (mL): 10 Description of Procedure: After appropriate identification in the preoperative holding area, the patient was brought to the operating room suite where she was positioned supine the operating table. Preoperative antibiotics were administered. Patient was then induced with a general anesthetic. She was positioned with a bump under the left side and the table was broken at the level of the ASIS. Patient's abdomen was prepped and draped in the usual sterile fashion. A formal timeout followed to confirm patient and procedure. Procedure was begun with a Veress entry at Medrano's point. Once the set point pressure was reached, this Veress needle was exchanged for an optical trocar and an optical entry was made in this location. Laparoscopic investigation revealed no inadvertent injury to the viscera below. A transversus abdominis plane block was created with 100 mL of saline mixed with Exparel and bupivacaine under laparoscopic guidance. Two additional 8 mm robotic trocars were placed along the abdominal wall laterally with approximately 10 cm spacing. The robot was then brought in and docked in standard fashion. Robotically patient's hernia defect was inspected. A significant amount of omentum had herniated through patient's fascial defect. Additionally I observed that there was very minimal preperitoneal fat?particularly in the region of the lateral aspect of the posterior rectus. Upon making this observation I elected to proceed with an intraperitoneal onlay approach but still sought to preserve as much peritoneum for coverage of the mesh as possible. With the selected approach I requested a Ventralight ST hernia mesh. The peritoneum was incised and with downward traction and a combination of sharp dissection as well as selective electrocautery, the peritoneal envelope was opened and the omental hernia contents were from the hernia sac and fully reduced to the peritoneum. After reduction, this peritoneal flap was continued laterally until the junction with the oblique complex where the layer was extremely attenuated. Superiorly, our flap undermined the initial part of the falciform ligament while inferiorly it extended to the umbilicus?thereby creating a tissue hammock. The hernia defect was closed with a 6 inch #1 stratafix suture by running the fascial defect closed and then running the suture back upon itself. Next a 8 x [address] mesh was introduced into the peritoneum and a 3-0 V-Loc suture was used to chandelier the mesh. This V-Loc suture was then run towards the operating side of the opening and circumferentially about the mesh perimeter. Several additional 3-0 V-Loc sutures were employed to both run the circumference of the mesh as well as the mesh in the anterior where it wanted to bowel away from the abdominal wall. This resulted in a nice flat lie of the mesh against the ant erior abdominal wall. Satisfied with this lie I then used a 3-0 V-Loc suture laterally on both ends of this peritoneal flap to close down the tissue around the mesh. I was able to achieve complete closure on the proximal side, but on the distal side there was an approximately 5% exposure of the mesh despite trying to employ even the hernia sac for coverage secondary to attenuated peritoneum. Upon further inspection it appeared that any additional attempts at covering this area would result in tearing of the flap elsewhere. Thus this pursuit was abandoned and the needles were removed from the peritoneum under laparoscopic visualization and pneumoperitoneum was released. The robot was then undocked and the trocars were removed. Additional local anesthetic was instilled and the port sites were closed with interrupted 4-0 Monocryl in subcuticular fashion. Steri-Strips and OpSite dressings were applied. Patient was transferred to PACU for ongoing care. Grafts/Implants Used: Ventralight ST, reference [id number], lot [id number] Complications none Admit VTE Documentation VTE Mechan Device Prophylaxis: SCD's Procedures Digestive 40xxx-49xxx: 21889 RPR AA HRN 1ST < 3 CM RDC
--- NOTE | 2023-11-02 14:43 | DCINST_ITS ---
Discharge Instructions Diet Discharge Diet: No restrictions Activity Discharge Activity: May Not Drive (While taking narcotic pain medication) and May Shower May shower in (days): 2 Ice area for (Minutes): 20 Lifting Restrictions: No lifting greater than 10 pounds for the next 5 weeks Dressing / Incision Call your doctor if your incision/area has: Continuous Slow Oozing, Increased Pain/ Swelling, Increased Redness, Foul Smelling Discharge and Swelling at the incision site Call your doctor if you observe: Fever of 101 or Higher, Inability to urinate and Inability to have a bowel movement Change Dressing in: 2 days (Please leave Steri-Strips intact until they fall off spontaneously or are taken off at your follow-up visit) Remove Dressing in: 2 days Cleanse incision/area with: Soap & Water and Keep Dressing Clean & Dry Follow Up Care Please Follow Up With: Yemi Benjamin MD When: 10 to 14 days postop Test Results: Test results from this visit will be discussed in further detail at your follow- up appointment, if applicable. Discharge Plan Admission Primary Reason for Your Visit: Robot-assisted ventral hernia repair with mesh Attending Provider: Yemi Benjamin Primary Care Provider: Blaine Gage Discharge Orders/Prescriptions Prescriptions: New oxycodone 5 mg tablet 5 mg PO Q6H PRN (Reason: pain) 3 Days Qty: 14 0RF Continued escitalopram oxalate 20 mg tablet 20 mg PO DAILY Qty: 90 3RF albuterol sulfate [Ventolin HFA] 90 mcg/actuation HFA aerosol inhaler 1 - 2 puff inhalation Q4H PRN PRN (Reason: Wheezing) Qty: 1 0RF varenicline 1 mg tablet 1 mg PO BID omeprazole 40 mg capsule,delayed release(DR/EC) 40 mg PO DAILY ondansetron 4 mg tablet,disintegrating 4 mg PO BID Referrals / Follow Up: Blaine Gage, [employer] [Primary Care Provider] - Disposition Disposition (needs filled in before D/C Order can be placed): Home, Self Care
[2023-11-02] MEDS: oxyCODONE 5 MG Tablet PO (16:16)
== END 2023-11-02 17:10 | disposition home or self-care (01) ==
LOC: SDC 09:59 → AC 09:59
PROVIDERS: Anesthesiology; PCP Nurse Practitioner Family; Referring Provider Surgery; Visit Provider Surgery
PROC: (CPT 49591; principal; 2023-11-02 11:05)
DX: K43.2 Incisional hernia without obstruction or gangrene (principal); J44.9 Chronic obstructive pulmonary disease, unspecified; F31.9 Bipolar disorder, unspecified; E66.01 Morbid (severe) obesity due to excess calories; G47.33 Obstructive sleep apnea (adult) (pediatric); F17.210 Nicotine dependence, cigarettes, uncomplicated; E03.9 Hypothyroidism, unspecified; F41.9 Anxiety disorder, unspecified; Z86.16 Personal history of COVID-19; Z79.51 Long term (current) use of inhaled steroids; Z79.899 Other long term (current) drug therapy
CPT/HCPCS: 49591; S2900; 00752; 36415; 84436; 84443; 84481; 85027; 86376; 93005; J7120; A4216; C1781; J2405

== ENCOUNTER → 2023-12-20 | Outpatient (CLI) | payer MEDICARE, MEDICAID, SELFPAY ==
--- NOTE | 2023-12-20 13:12 | VDLE_ITS ---
Reason For Study: BILATERAL EDEMA RIGHT LEFT GSV is normal. GSV is normal. CFV is compressible, spontaneous, phasic, CFV is compressible, spontaneous, phasic, competent and demonstrates normal competent, and demonstrates normal augmentation. augmentation. FV is compressible, spontaneous, phasic, FV is compressible, spontaneous, phasic, competent and demonstrates normal competent and demonstrates normal augmentation. augmentation. POP V is compressible, spontaneous, phasic, POP V is compressible, spontaneous, phasic, competent and demonstrates normal competent and demonstrates normal augmentation. augmentation. T/P Trunk is compressible. T/P Trunk is compressible. PTV is compressible. PTV is compressible. RT PerV is compressible. LT PerV is compressible. Procedure This is a venous duplex using B-mode, color flow and spectral Doppler. Exam performed in department. The study was technically difficult. Bilateral calf veins were difficult to visualize; appear compressible bilaterally. A preliminary report was called and/or faxed to Blaine Gage @ [phone] @ [facility]. VL/Venous Duplex US - Erickson Extrem Interpretation Summary Deep veins of the lower extremities are bilaterally patent and compressible seg mentally. There is no evidence of deep vein thrombosis on either side. Valvular competence appears in tact within the proximal deep venous systems bilaterally. The great saphenous veins appear bila terally patent and compressible segmentally. Deep calf veins were difficult to visualize bilateral ly. Ordering Physician: Blaine Gage Referring Physician: Blaine Gage Performed By: Mohini Freire, PACO, RVT
== END | disposition home or self-care (01) ==
LOC: CVS 12:54
PROVIDERS: PCP Nurse Practitioner Family; Referring Provider Nurse Practitioner Family; Visit Provider Nurse Practitioner Family
DX: R60.0 Localized edema (principal)
CPT/HCPCS: 93970

== ENCOUNTER 2024-01-23 10:14 | Emergency (ER) | payer MEDICARE, MEDICAID, SELFPAY ==
[2024-01-23 10:15] VITALS: BP 123/99; PULSE 104; RESP 20; TEMP 36.2; O2SAT 98
[2024-01-23 10:18] VITALS: BMI 45.9
--- NOTE | 2024-01-23 10:30 | RAD_ITS ---
STUDY: X-RAY - RIGHT ANKLE REASON FOR EXAM: Female, 38 years old. Ankle pain following a fall. TECHNIQUE: 3 view(s) of the ankle. COMPARISON: Comparison is made with prior study of December 17, 2019. FINDINGS: The patient is status post ORIF of the medial malleolus and distal fibula. No acute fractures seen. Normal medial and lateral malleoli. Normal tibiotalar articulation and ankle mortise. Normal visualized talus and calcaneus. The visualized subtalar, talonavicular, calcaneocuboid and tarsal articulations are normal. Diffuse soft tissue swelling. RAD/Ankle min 3 Views IMPRESSION: Prior ORIF of the medial malleolus and distal fibula. No acute fractures seen. Diffuse soft tissue swelling. Electronically Signed: Ej Sam MD at 10:58 EDT ,
--- NOTE | 2024-01-23 10:30 | RAD_ITS ---
STUDY: X-RAY - LUMBAR SPINE REASON FOR EXAM: Female, 38 years old. Injury/fall TECHNIQUE: 2 view(s) of the lumbar spine were obtained. COMPARISON: None FINDINGS: Normal lumbar lordosis. There is no substantial scoliosis. There is a normal alignment of the vertebrae. Normal vertebral bodies and endplates. Normal disc space heights. The soft tissue structures are unremarkable. RAD/Lumbar Spine 2 or 3 Views IMPRESSION: Normal x-ray examination of the lumbar spine. Electronically Signed: Ej Sam MD at 10:54 EDT ,
--- NOTE | 2024-01-23 10:30 | RAD_ITS ---
STUDY: X-RAY - PELVIS REASON FOR EXAM: Female, 38 years old. R pelvic brim injury TECHNIQUE: One view of the pelvis was obtained. COMPARISON: None. FINDINGS: There is a non-specific bowel gas pattern. Normal visualized soft tissue structures. Normal bilateral iliac wings, sacroiliac joints and visualized sacrum. Normal visualized bilateral superior and inferior pubic rami. There is narrowing with sclerosis of the pubic symphysis. Normal ischial tuberosities. Normal visualized right femoral head. Normal right acetabulum. Normal right hip joint. Normal visualized left femoral head. Normal left acetabulum. Normal left hip joint. RAD/Pelvis 1 or 2 Views IMPRESSION: Degenerative changes with sclerosis of the symphysis pubis. Electronically Signed: Ej Sam MD at 10:54 EDT ,
--- NOTE | 2024-01-23 10:31 | EDS_ITS ---
HPI HPI - Fall History of Present Illness Chief Complaint: Fall Informant: patient Occured/Mechanism Occurred: Today (JPTA) Mechanism/Context: Yes same level fall Pain/Injury Pain Location: head, back and lower extremity Narrative Narrative: 38-year-old female states she was walking across gas station parking lot when her right knee buckled causing her to fall, and in doing so she describes forcibly dorsiflexing her right foot injuring her right ankle, which she has broken and had surgery on in the past. She fell to her right low back and bumped her head on the pavement, but did not lose consciousness, vomit, or develop a headache or neurologic symptoms/vision changes. She does not take any antiplatelet or anticoagulants. Able to bear weight but with significant discomfort on the right lower extremity. [facility] Medical History Nodular goiter Arthritis Migraine headache History of pain when walking History of edema Shortness of breath on exertion Gastric reflux CPAP (continuous positive airway pressure) dependence Hypothyroidism Thyromegaly COVID-19 Wears glasses Edentulous History of brain disorder Herniated disc Smoker Chronic cough ZANA (obstructive sleep apnea) Obesity Chronic low back pain Kidney stones COPD (chronic obstructive pulmonary disease) Anemia Hydocephalus Panic attacks Bipolar depression manic phase Anxiety Home Medications ?Medication ?Instructions ?Recorded ?Last Taken ?Type escitalopram oxalate 20 mg tablet 20 mg PO DAILY DEPRESSION #90 tabs 12/21/22 11/02/23 Rx albuterol sulfate 90 mcg/actuation 1 - 2 puff inhalation Q4H PRN PRN 04/07/23 Unknown Rx aerosol inhaler (Ventolin HFA) Wheezing ##1 omeprazole 40 mg capsule,delayed 40 mg PO DAILY 10/25/23 11/02/23 History release ondansetron 4 mg disintegrating 4 mg PO BID WITH USE OF CHANTIX 10/25/23 11/01/23 History tablet varenicline 1 mg tablet 1 mg PO BID 10/25/23 11/01/23 History acetaminophen 500 mg tablet 1,000 mg PO Q6H PRN 11/15/23 Unknown History (Tylenol Extra Strength) levothyroxine 112 mcg tablet 112 mcg PO DAILY #30 tabs 11/15/23 Unknown Rx Allergy/AdvReac Type Severity Reaction Status Date / Time ceftriaxone sodium (From Allergy Hives Verified 01/23/24 10:15 Rocephin) tramadol Allergy Hives Verified 01/23/24 10:15 bupropion HCl (From AdvReac MAKES Verified 01/23/24 10:15 Wellbutrin) ANXIETY WORSE Family History Grandmother Asthma Thyroid disorder Mother Asthma Thyroid disorder COPD (chronic obstructive pulmonary disease) Aunt Asthma Heart disease Hypertension Thyroid disorder Emphysema, unspecified Grandfather Asthma Diabetes Hypertension Hyperlipidemia COPD (chronic obstructive pulmonary disease) Surgical History (Updated 11/15/23 @ 12:[address] Yemi Benjamin MD) H/O ventral hernia repair History of incisional hernia repair H/O: hysterectomy History of ankle surgery History of cholecystectomy History of bilateral tubal ligation D&C left ankle ligament repair History of tonsillectomy History of 3 sections Social History household members: family housing: house number of children: 3 current occupational status: unemployed pets and animals: Yes Smoking Status: Current every day smoker tobacco type: cigarettes second hand exposure: Yes alcohol intake: never substance use type: does not use caffeine: No what type of physical activity do you participate in: walking frequency: daily seatbelt use: always do you feel safe at home: Yes ROS ROS ED Constitutional Constitutional ED: Denies chills or fever(s) Eyes Eyes: Denies blurry vision, change in vision or diplopia ENT ENT ED: Denies rhinorrhea Cardiovascular Cardiovascular: Denies chest pain Respiratory/Chest Respiratory/Chest: Denies dyspnea Gastrointestinal Gastrointestinal: Denies abdominal pain, nausea or vomiting Musculoskeletal Musculoskeletal: Reports back pain and extremity pain; Denies neck pain Integumentary Denies Abrasions, rash or wounds Neurologic Neurologic: Denies headache(s), paresthesias or weakness EXAM Physical Exam Const Vital Signs: 01/23/24 10:15 Temperature 97.1 F L Temperature Source Temporal Pulse Rate 104 H Respiratory Rate 20 H Blood Pressure 123/99 H Blood Pressure Mean 107 Pulse Ox 98 Oxygen Delivery Method Room Air Positive well nourished, well developed and obese General Appearance ED: well developed and NAD Nutritional Appearance: obese HEENT Reports normocephalic HEENT Narrative: No signs of head trauma. No CSF otorhinorrhea. No Jay sign. No periorbital ecchymosis. atraumatic; Negative for hematoma or tenderness Eyes PERRL and EOMs intact bilaterally Neck full ROM and supple General: Negative for tenderness Resp normal respiratory effort Back/Spine normal ROM and normal to inspection Back/Spine Narrative: Tender right pelvic brim area without crepitance or obvious outward signs of trauma, as well as into the buttock without bony tenderness in the ischium, and the midline mid low lumbar without step-off. No coccygeal tenderness or thoracic/cervical tenderness. Extremity Extremity Narrative: Able to move the right ankle but limited due to pain. Tender throughout the lateral malleolus, but not the medial malleolus. Foot nontender including the base of the fifth metatarsal. Knee is nontender, full range of motion all ligaments stable. No hip or groin pain with logroll or flexing the thigh on the right. No tenderness at the greater trochanter or elsewhere in the thigh. Full range without pain of the left lower and bilateral upper extremities. Neuro oriented x3, no focal motor deficits and no sensory deficits noted Sensorium / Orientation: alert Psych mental status grossly normal and thought process normal Mood & Affect: anxious Skin no wounds Rashes: no rashes MDM MDM MDM Narrative Medical decision making narrative: To evaluate the patient for injuries, x-rays were obtained of the lumbar spine, the pelvis, the right ankle. She meets Trigg head CT trauma rule for observation does not require advanced imaging of the head for this minor head injury. 2 view x-ray series of the pelvis is negative for acute fracture or dislocation on my interpretation. Three-view x-ray series of the lumbar spine is negative for acute fracture on my interpretation. Three-view x-ray series of the right ankle is negative for fracture or dislocation or hardware disruption on my interpretation. Radiology in agreement on all of these. Patient is comfortable on reevaluation using her cell phone lying on her left side. Will give her an Rodney wrap for her right ankle and a dose of Naprosyn she states she should be able to walk without other hardware. Supportive care advised. Radiography Diagnostic Testing: Clinical Impression(s) from Imaging Studies Ankle X-Ray 01/23/24 10:30 IMPRESSION: Prior ORIF of the medial malleolus and distal fibula. No acute fractures seen. Diffuse soft tissue swelling. Electronically Signed: Ej Sam MD at 10:58 EDT , Lumbar Spine X-Ray 01/23/24 10:30 IMPRESSION: Normal x-ray examination of the lumbar spine. Electronically Signed: Ej Sam MD at 10:54 EDT , Pelvis X-Ray 01/23/24 10:30 IMPRESSION: Degenerative changes with sclerosis of the symphysis pubis. Electronically Signed: Ej Sam MD at 10:54 EDT , Discharge Plan Triage Chief Complaint: Fall ED Provider: Ronen Kelley Dx/Rx/DC Orders Clinical Impression: Right ankle sprain, Contusion of lower back, Closed head injury without concussion, Accidental fall Instructions: ED Ankle Sprain (Adult) Prescriptions: No Action escitalopram oxalate 20 mg tablet 20 mg PO DAILY Qty: 90 3RF acetaminophen [Tylenol Extra Strength] 500 mg tablet 1,000 mg PO Q6H PRN levothyroxine 112 mcg tablet 112 mcg PO DAILY Qty: 30 6RF albuterol sulfate [Ventolin HFA] 90 mcg/actuation HFA aerosol inhaler 1 - 2 puff inhalation Q4H PRN PRN (Reason: Wheezing) Qty: 1 0RF varenicline 1 mg tablet 1 mg PO BID omeprazole 40 mg capsule,delayed release(DR/EC) 40 mg PO DAILY ondansetron 4 mg tablet,disintegrating 4 mg PO BID Primary Care Provider: Blaine Gage Referrals: Blaine Gage, GROUND WORKER-C [Primary Care Provider] - 1 Week if not improving Print Language: New Zealander Disposition Disposition: Home, Self Care
[2024-01-23] MEDS: Naproxen 500 MG Tablet PO (11:23)
[2024-01-23 11:30] VITALS: BP 144/66; PULSE 98; RESP 18; TEMP 36.4; O2SAT 98
== END 2024-01-23 11:32 | disposition home or self-care (01) ==
PROVIDERS: Emergency Provider Emergency Medicine; PCP Nurse Practitioner Family; Visit Provider Emergency Medicine
DX: S93.401A Sprain of unspecified ligament of right ankle, initial encounter (principal); J44.9 Chronic obstructive pulmonary disease, unspecified; S09.90XA Unspecified injury of head, initial encounter; S20.229A Contusion of unspecified back wall of thorax, initial encounter; G47.33 Obstructive sleep apnea (adult) (pediatric); F17.210 Nicotine dependence, cigarettes, uncomplicated; E66.9 Obesity, unspecified; W18.30XA Fall on same level, unspecified, initial encounter; Z86.16 Personal history of COVID-19
CPT/HCPCS: 72100; 72170; 73610; 99282

== ENCOUNTER 2024-02-06 17:45 | Emergency (ER) | payer MEDICARE, MEDICAID, SELFPAY ==
[2024-02-06 17:45] VITALS: BP 158/86; PULSE 88; RESP 17; TEMP 36.3; O2SAT 99
--- NOTE | 2024-02-06 20:10 | EDS_ITS ---
HPI HPI - Fall History of Present Illness Chief Complaint: Fall Informant: patient Narrative Narrative: 38-year-old female presenting to the emergency room with head injury. Patient states that on Monday her right leg she fell down. She states that she did not feel that she was injured after the fall. Yesterday her leg gave out again and she fell down striking the left forehead. She did not have a loss of consciousness. Her glasses were uninjured. She notes headache light sensitivity. She notes pain in the lower posterior right buttock down into the posterior thigh. She denies any bruising. She is not on any blood thinners. She has not had any vomiting. She has been tolerating fluids. She states she has not had anything solid to eat today. She states that she went to her primary care doctor who advised her to come to emergency today. [facility] Medical History Nodular goiter Arthritis Migraine headache History of pain when walking History of edema Shortness of breath on exertion Gastric reflux CPAP (continuous positive airway pressure) dependence Hypothyroidism Thyromegaly COVID-19 Wears glasses Edentulous History of brain disorder Herniated disc Smoker Chronic cough ZANA (obstructive sleep apnea) Obesity Chronic low back pain Kidney stones COPD (chronic obstructive pulmonary disease) Anemia Hydocephalus Panic attacks Bipolar depression manic phase Anxiety Home Medications ?Medication ?Instructions ?Recorded ?Last Taken ?Type escitalopram oxalate 20 mg tablet 20 mg PO DAILY DEPRESSION #90 tabs 12/21/22 11/02/23 Rx albuterol sulfate 90 mcg/actuation 1 - 2 puff inhalation Q4H PRN PRN 04/07/23 Unknown Rx aerosol inhaler (Ventolin HFA) Wheezing ##1 omeprazole 40 mg capsule,delayed 40 mg PO DAILY 10/25/23 11/02/23 History release ondansetron 4 mg disintegrating 4 mg PO BID WITH USE OF CHANTIX 10/25/23 11/01/23 History tablet varenicline 1 mg tablet 1 mg PO BID 10/25/23 11/01/23 History acetaminophen 500 mg tablet 1,000 mg PO Q6H PRN fever or pain 11/15/23 Unknown History (Tylenol Extra Strength) levothyroxine 112 mcg tablet 112 mcg PO DAILY #30 tabs 11/15/23 Unknown Rx Allergy/AdvReac Type Severity Reaction Status Date / Time ceftriaxone sodium (From Allergy Hives Verified 02/06/24 17:48 Rocephin) tramadol Allergy Hives Verified 02/06/24 17:48 bupropion HCl (From AdvReac MAKES Verified 02/06/24 17:48 Wellbutrin) ANXIETY WORSE Family History Grandmother Asthma Thyroid disorder Mother Asthma Thyroid disorder COPD (chronic obstructive pulmonary disease) Aunt Asthma Heart disease Hypertension Thyroid disorder Emphysema, unspecified Grandfather Asthma Diabetes Hypertension Hyperlipidemia COPD (chronic obstructive pulmonary disease) Surgical History H/O ventral hernia repair History of incisional hernia repair H/O: hysterectomy History of ankle surgery History of cholecystectomy History of bilateral tubal ligation D&C left ankle ligament repair History of tonsillectomy History of 3 sections Social History household members: family housing: house number of children: 3 current occupational status: unemployed pets and animals: Yes Smoking Status: Current every day smoker tobacco type: cigarettes second hand exposure: Yes alcohol intake: never substance use type: does not use caffeine: No what type of physical activity do you participate in: walking frequency: daily seatbelt use: always do you feel safe at home: Yes ROS ROS ED Constitutional Constitutional ED: Denies chills, fever(s) or weight loss Eyes Eyes: Reports other Details: Light sensitivity ; Denies change in vision or diplopia ENT ENT ED: Denies ear pain, rhinorrhea or sore throat Cardiovascular Cardiovascular: Denies chest pain, orthopnea, palpitations or racing heartbeat Respiratory/Chest Respiratory/Chest: Denies cough, dyspnea or orthopnea Gastrointestinal Gastrointestinal: Denies abdominal pain, diarrhea, nausea or vomiting Genitourinary Genitourinary ED: Denies dysuria, hematuria or urinary frequency Musculoskeletal Musculoskeletal: Reports other Details: See history of present illness. Specifically the patient is denying any back pain ; Denies arthralgias, back pain, myalgias or neck pain Integumentary Denies abscess or rash Neurologic Neurologic: Reports headache(s); Denies paresthesias or weakness Psychiatric Psychiatric: Denies anxiety, depression, suicidal ideation or suicidal thoughts Endocrine Endocrinology: Denies polydipsia, polyphagia or polyuria Allergic/Immunologic Allergic/Immunologic ED: Denies mouth swelling, tongue swelling or urticaria EXAM Physical Exam Const Vital Signs: 02/06/24 17:45 02/06/24 20:11 02/06/24 20:13 Temperature 97.4 F L Temperature Source Temporal Pulse Rate 88 79 Respiratory Rate 17 18 Respiratory Effort Normal Non-Labored Respiratory Depth Normal Respiratory Pattern Normal Blood Pressure 158/86 H 127/77 H Blood Pressure Mean 110 93 Pulse Ox 99 99 Oxygen Delivery Method Room Air Room Air Room Air 02/06/24 22:00 Temperature Temperature Source Pulse Rate 65 Respiratory Rate 16 Respiratory Effort Respiratory Depth Respiratory Pattern Blood Pressure 137/84 H Blood Pressure Mean 101 Pulse Ox 97 Oxygen Delivery Method Positive well nourished, well developed and obese General Appearance ED: well developed and NAD Nutritional Appearance: obese HEENT Reports normocephalic, head/scalp atraumatic and moist mucous membranes HEENT Narrative: Patient notes very light touch sensitivity to the forehead Eyes PERRL and EOMs intact bilaterally Neck no lymphadenopathy, supple and no JVD Resp normal respiratory effort and clear to auscultation bilaterally Cardio regular rate, regular rhythm and no murmurs GI normal to inspection, nondistended, normoactive bowel sounds and non-tender Palpation: soft Back/Spine no CVA tenderness and normal ROM Extremity Extremity Narrative: Patient notes pain with light touch of posterior right buttock and thigh/hip. She is able to flex the hip on her own spontaneously. Negative logroll. General Extremety ED: Negative for edema General Extremity: Negative for edema Neuro oriented x3 and CN's II-XII intact bilaterally [place] Coma Scale: document GCS findings Spontaneous Obeys Commands Oriented 15 Sensorium / Orientation: alert Motor Exam: strength 5/5 throughout Psych mental status grossly normal Mood & Affect: Negative for depressed or tearful Skin no rashes or lesions noted and no wounds MDM MDM MDM Narrative Medical decision making narrative: Differential diagnosis includes pelvic fracture hip fracture intracranial hemorrhage skull fracture concussion My independent interpretation of the plain films of the right hip and pelvis is no obvious fracture. CT of the brain read by radiology has been significantly delayed. Patient received a dose of Toradol for pain. Formal read of the CT brain is negative for intracranial or fracture. Patient will be treated conservatively at home. Follow-up with primary care if not improved in a week History & Record Review Discussion w/independent historian: Patient Lab Data Attestation: I reviewed the patient's lab results. Radiography Diagnostic Testing: Clinical Impression(s) from Imaging Studies Brain CT 02/06/24 20:10 IMPRESSION: Normal unenhanced CT scan of the brain. Electronically Signed: Ronen Wiggins MD at 23:20 EDT , Hip/Pelvis X-Ray 02/06/24 20:30 IMPRESSION: Normal x-ray examination of the pelvis and hip. Electronically Signed: Ronen Wiggins MD at 23:05 EDT , Discharge Plan Triage Chief Complaint: Fall ED Provider: Giovanni Feldman Dx/Rx/DC Orders Clinical Impression: Contusion of pelvis, Concussion, Headache Instructions: Bruises (Contusions), ED Concussion Prescriptions: No Action escitalopram oxalate 20 mg tablet 20 mg PO DAILY Qty: 90 3RF acetaminophen [Tylenol Extra Strength] 500 mg tablet 1,000 mg PO Q6H PRN (Reason: fever or pain) levothyroxine 112 mcg tablet 112 mcg PO DAILY Qty: 30 6RF albuterol sulfate [Ventolin HFA] 90 mcg/actuation HFA aerosol inhaler 1 - 2 puff inhalation Q4H PRN PRN (Reason: Wheezing) Qty: 1 0RF varenicline 1 mg tablet 1 mg PO BID omeprazole 40 mg capsule,delayed release(DR/EC) 40 mg PO DAILY ondansetron 4 mg tablet,disintegrating 4 mg PO BID Primary Care Provider: Blaine Gage Referrals: Blaine Gage, RELAY MOTORMAN-C [Primary Care Provider] - 1 Week if not improving Print Language: Persian Disposition Disposition: Home, Self Care
--- NOTE | 2024-02-06 20:10 | CT_ITS ---
STUDY: CT BRAIN WITHOUT CONTRAST REASON FOR EXAM: Female, 38 years old. Injury RADIATION DOSAGE (If Supplied By Facility): CTDIvol = ( 44.99 ) mGy, DLP = ( 897.35 ) mGycm TECHNIQUE: Transaxial CT imaging of the brain was performed without administration of intravenous contrast material. Individualized dose optimization techniques were used for this CT. COMPARISON: September 14, 2018. FINDINGS: Normal soft tissue structures. Normal calvarium. Normal size ventricles and extra-axial spaces for the patient''s age. Normal white matter tracts of the cerebral hemispheres. Normal basal ganglia and thalami. Normal brainstem. Normal cerebellum. There is no intracranial hemorrhage. There are no findings of an acute ischemic infarction. Normal visualized paranasal sinuses. CT/Brain/Head without Contrast IMPRESSION: Normal unenhanced CT scan of the brain. Electronically Signed: Ronen Wiggins MD at 23:20 EDT ,
[2024-02-06 20:13] VITALS: BP 127/77; PULSE 79; RESP 18; O2SAT 99
--- NOTE | 2024-02-06 20:30 | RAD_ITS ---
STUDY: X-RAY - PELVIS AND RIGHT HIP REASON FOR EXAM: Female, 38 years old. Injury TECHNIQUE: 3 views of the pelvis and hip. COMPARISON: None. FINDINGS: There is a normal bowel gas pattern. Normal visualized soft tissue structures. Normal bilateral iliac wings, sacroiliac joints and visualized sacrum. Normal bilateral superior and inferior pubic rami. Normal pubic symphysis. Normal bilateral ischial tuberosities. Normal visualized femoral head. Normal acetabulum. Normal hip joint. There is no acute fracture. RAD/HIP, UNI W/ Pelvis 2-3 Views IMPRESSION: Normal x-ray examination of the pelvis and hip. Electronically Signed: Ronen Wiggins MD at 23:05 EDT ,
[2024-02-06 22:00] VITALS: BP 137/84; PULSE 65; RESP 16; O2SAT 97
[2024-02-06] MEDS: Ketorolac 60 MG/2 ML Vial IM (22:52)
[2024-02-06 23:40] VITALS: BP 124/80; PULSE 89; RESP 18; TEMP 36.4; O2SAT 98
== END 2024-02-06 23:41 | disposition home or self-care (01) ==
PROVIDERS: Emergency Provider Emergency Medicine; PCP Nurse Practitioner Family; Visit Provider Emergency Medicine
DX: S06.0X0A Concussion without loss of consciousness, initial encounter (principal); J44.9 Chronic obstructive pulmonary disease, unspecified; S30.0XXA Contusion of lower back and pelvis, initial encounter; G47.33 Obstructive sleep apnea (adult) (pediatric); F17.210 Nicotine dependence, cigarettes, uncomplicated; E66.9 Obesity, unspecified; Z79.51 Long term (current) use of inhaled steroids; Z79.899 Other long term (current) drug therapy; W19.XXXA Unspecified fall, initial encounter; Z86.16 Personal history of COVID-19
CPT/HCPCS: 70450; 73502; 96372; 99282

== ENCOUNTER → 2024-03-06 | Outpatient (CLI) | payer MEDICARE, MEDICAID, SELFPAY ==
[2024-03-06 12:54] LABS: Absolute Lymphocyte Count 2.42 X10^3/uL (0.83-4.51); Absolute Neutrophil Count 6.9 X10^3/uL (2.0-7.7); Basophil# 0.05 X10^3/uL; Basophil% 0.5 % (0-1); Eosinophil# 0.39 X10^3/uL; Eosinophils% 3.7 % (0-5); Hematocrit 41.9 % (37-47); Hemoglobin 12.9 g/dL (12.0-15.0); Lymphocyte # 2.42 X10^3/ul (0.83-4.51); Lymphocyte % 22.9 % (19-41); Mean Corp Hgb Conc 30.8 g/dL (32-36); Mean Corpuscular Hgb 25.9 pg (27.0-32.0); Mean Corpuscular Volume 84.1 fL (81-99); Mean Platelet Vol. 10.3 fl (6.2-12.0); Monocyte# 0.75 X10^3/uL; Monocyte% 7.1 % (0-10); NRBC Flagged by Analyzer 0 % (0-5); Neutrophil # 6.92 X10^3/uL (2.7-7.7); Neutrophil % 65.4 % (47-70); Platelet Count 285 K/mm3 (150-450); RBC Distribution Width CV 18.1 % (11.6-14.6); RBC Distribution Width SD 54.8 fl (35.1-43.9); Red Blood Count 4.98 M/mm3 (4.2-5.4); White Blood Count 10.6 K/mm3 (4.4-11.0)
[2024-03-06 13:03] LABS: BNP,B-Type NATRIURETIC PEPTIDE 7.7 pg/mL (0-100)
[2024-03-06 13:22] LABS: Vitamin B12 692 pg/mL (211-911)
[2024-03-06 13:26] LABS: ALB/GLOB Ratio 0.7 RATIO (0.9-2.4); AST(SGOT) 25 U/L (15-37); Alanine Aminotransfer ALT/SGPT 37 U/L (13-56); Albumin, Serum 3.2 g/dL (3.2-5.0); Alkaline Phosphatase 116 U/L (45-117); Anion Gap 5 (5-15); BUN 6 mg/dL (7-18); BUN/Creat Ratio 11.2 RATIO (10-20); Calcium,Total 9.2 mg/dL (8.5-10.1); Chloride 104 mmol/L (98-107); Cholesterol 187 mg/dL (200); Creatinine, Serum 0.53 mg/dL (0.55-1.02); EST Glomerular Filtration Rate 137 mL/min (>60); Est Glom Filt Rate - Afr Amer 166 mL/min (>60); Globulin 4.6 g/dL (2.2-4.2); Glucose 84 mg/dL (74-106); High Density Lipoprotein 34 mg/dL; Potassium 4.3 mmol/L (3.5-5.1); Protein, Total 7.8 g/dL (6.4-8.2); Sodium Level 137 mmol/L (136-145); T4 Free Direct 0.58 ng/dL (0.76-1.46); Triglycerides 157 mg/dL; Very Low Density Lipoprotein 31 mg/dL (5-40)
[2024-03-06 13:44] LABS: Hemoglobin A1c 5.2 % (3.8-5.6)
== END | disposition home or self-care (01) ==
LOC: VSLAB 09:18
PROVIDERS: Internal Medicine Endocrinology, Diabetes & Metabolism; PCP Nurse Practitioner Family; Visit Provider Nurse Practitioner Family
DX: R06.01 Orthopnea (principal); Z13.1 Encounter for screening for diabetes mellitus; Z13.220 Encounter for screening for lipoid disorders; I10 Essential (primary) hypertension; R73.03 Prediabetes; E55.9 Vitamin D deficiency, unspecified
CPT/HCPCS: 36415; 80053; 80061; 82306; 82607; 83036; 83880; 84439; 84443; 85025

== ENCOUNTER 2024-03-08 17:23 | Emergency (ER) | payer MEDICARE, MEDICAID, SELFPAY ==
[2024-03-08 17:24] VITALS: BP 120/87; PULSE 96; RESP 16; TEMP 36.6; O2SAT 96
--- NOTE | 2024-03-08 18:05 | RAD_ITS ---
STUDY: X-RAY - PELVIS REASON FOR EXAM: Female, 39 years old. pain TECHNIQUE: One view of the pelvis was obtained. COMPARISON: Pelvic x-ray dated February 06, 2024. FINDINGS: There is a non-specific bowel gas pattern. Normal visualized soft tissue structures. Normal bilateral iliac wings, sacroiliac joints and visualized sacrum. Normal visualized bilateral superior and inferior pubic rami. Normal pubic symphysis. Normal ischial tuberosities. Normal visualized right femoral head. Normal right acetabulum. Normal right hip joint. No visualized fracture or displaced bony fragment. Normal visualized left femoral head. Normal left acetabulum. Normal left hip joint. RAD/Pelvis 1 or 2 Views IMPRESSION: Normal x-ray examination of the pelvis. Electronically Signed: Curry Arnold MD at 19:49 EDT ,
--- NOTE | 2024-03-08 18:10 | EDS_ITS ---
HPI HPI - Fall History of Present Illness Chief Complaint: Fall Informant: patient and family Narrative Narrative: 39-year-old female presenting to the emergency room following a fall. Patient states that she really needed to urinate so she jumped out of the car and slipped on the gravel causing her to fall down on her right side and stated that she did the splits. This is the third fall the patient injuring herself in the past month and a half. She states that she has pain in her knee and in the right hip pelvis area. She notes some abrasions. No loss of consciousness. She has chronic right knee problems. [facility] Medical History Nodular goiter Arthritis Migraine headache History of pain when walking History of edema Shortness of breath on exertion Gastric reflux CPAP (continuous positive airway pressure) dependence Hypothyroidism Thyromegaly COVID-19 Wears glasses Edentulous History of brain disorder Herniated disc Smoker Chronic cough ZANA (obstructive sleep apnea) Obesity Chronic low back pain Kidney stones COPD (chronic obstructive pulmonary disease) Anemia Hydocephalus Panic attacks Bipolar depression manic phase Anxiety Home Medications ?Medication ?Instructions ?Recorded ?Last Taken ?Type escitalopram oxalate 20 mg tablet 20 mg PO DAILY DEPRESSION #90 tabs 12/21/22 03/08/24 Rx albuterol sulfate 90 mcg/actuation 1 - 2 puff inhalation Q4H PRN PRN 04/07/23 Unknown Rx aerosol inhaler (Ventolin HFA) Wheezing ##1 omeprazole 40 mg capsule,delayed 40 mg PO DAILY 10/25/23 03/08/24 History release ondansetron 4 mg disintegrating 4 mg PO BID WITH USE OF CHANTIX 10/25/23 03/08/24 History tablet varenicline 1 mg tablet 1 mg PO BID 10/25/23 03/08/24 History acetaminophen 500 mg tablet 1,000 mg PO Q6H PRN fever or pain 11/15/23 Unknown History (Tylenol Extra Strength) levothyroxine 137 mcg tablet 137 mcg PO DAILY #30 tabs 03/07/24 03/07/24 Rx Allergy/AdvReac Type Severity Reaction Status Date / Time ceftriaxone sodium (From Allergy Hives Verified 03/08/24 19:05 Rocephin) tramadol Allergy Hives Verified 03/08/24 19:05 bupropion HCl (From AdvReac MAKES Verified 03/08/24 19:05 Wellbutrin) ANXIETY WORSE Family History Grandmother Asthma Thyroid disorder Mother Asthma Thyroid disorder COPD (chronic obstructive pulmonary disease) Aunt Asthma Heart disease Hypertension Thyroid disorder Emphysema, unspecified Grandfather Asthma Diabetes Hypertension Hyperlipidemia COPD (chronic obstructive pulmonary disease) Surgical History H/O ventral hernia repair History of incisional hernia repair H/O: hysterectomy History of ankle surgery History of cholecystectomy History of bilateral tubal ligation D&C left ankle ligament repair History of tonsillectomy History of 3 sections Social History household members: family housing: house number of children: 3 current occupational status: unemployed pets and animals: Yes Smoking Status: Current every day smoker tobacco type: cigarettes second hand exposure: Yes alcohol intake: never substance use type: does not use caffeine: No what type of physical activity do you participate in: walking frequency: daily seatbelt use: always do you feel safe at home: Yes ROS ROS ED Constitutional Constitutional ED: Denies chills, fever(s) or weight loss Eyes Eyes: Denies change in vision or diplopia ENT ENT ED: Denies ear pain, rhinorrhea or sore throat Cardiovascular Cardiovascular: Denies chest pain, orthopnea, palpitations or racing heartbeat Respiratory/Chest Respiratory/Chest: Denies cough, dyspnea or orthopnea Gastrointestinal Gastrointestinal: Denies abdominal pain, diarrhea, nausea or vomiting Genitourinary Genitourinary ED: Denies dysuria, hematuria or urinary frequency Musculoskeletal Musculoskeletal: Reports other Details: see HPI ; Denies arthralgias or myalgias Integumentary Reports Abrasions; Denies abscess or rash Neurologic Neurologic: Denies headache(s) or weakness Psychiatric Psychiatric: Denies anxiety, depression, suicidal ideation or suicidal thoughts Endocrine Endocrinology: Denies polydipsia, polyphagia or polyuria Allergic/Immunologic Allergic/Immunologic ED: Denies mouth swelling, tongue swelling or urticaria EXAM Physical Exam Narrative Exam Narrative: Patient's body habitus precludes a confident examination of her joints as there are no normal contours and tissue depth limits bony palpation Const Vital Signs: 03/08/24 17:24 03/08/24 17:48 Temperature 97.9 F Temperature Source Temporal Pulse Rate 96 Respiratory Rate 16 Respiratory Effort Normal Blood Pressure 120/87 H Blood Pressure Mean 98 Pulse Ox 96 Oxygen Delivery Method Room Air Room Air Positive well nourished, well developed and obese General Appearance ED: well developed and NAD Nutritional Appearance: obese HEENT Reports normocephalic, head/scalp atraumatic and moist mucous membranes Eyes PERRL and EOMs intact bilaterally Neck full ROM, no lymphadenopathy, supple and no JVD Resp normal respiratory effort and clear to auscultation bilaterally Cardio regular rate, regular rhythm and no murmurs GI normal to inspection, nondistended, normoactive bowel sounds and non-tender Palpation: soft Back/Spine no CVA tenderness and normal ROM Extremity Extremity Narrative: Patient states that she has tenderness to palpation diffusely of the right knee. She has tenderness over the right iliac crest and right inguinal region. General Extremety ED: Negative for edema General Extremity: Negative for edema Neuro oriented x3 and CN's II-XII intact bilaterally Sensorium / Orientation: alert Motor Exam: strength 5/5 throughout Psych mental status grossly normal Mood & Affect: Negative for depressed or tearful Skin no rashes or lesions noted and no wounds MDM MDM MDM Narrative Medical decision making narrative: Differential diagnosis includes but not limited to bony fracture sprain strain ligamentous injury meniscal injury labral injury soft tissue contusion My independent interpretation the plain films of the pelvis is no obvious fracture. My independent interpretation of the plain films of the left knee is no obvious fracture. Patient received a dose of Toradol. Would recommend ice I think she most likely has an inguinal strain and possibly knee sprain. Rodney wrap as needed. Follow-up with PCP in 10 to 14 days if not improved History & Record Review Discussion w/independent historian: Patient Radiography Diagnostic Testing: Clinical Impression(s) from Imaging Studies Pelvis X-Ray 03/08/24 18:05 IMPRESSION: Normal x-ray examination of the pelvis. Electronically Signed: Curry Arnodl MD at 19:49 EDT Reading Location ID and State: [facility] / [place] , Service support , Knee X-Ray 03/08/24 18:15 IMPRESSION: 1. No acute fracture. 2. Healed proximal one third fibular fracture. Electronically Signed: Curry Arnold MD at 19:40 EDT , Discharge Plan Triage Chief Complaint: Fall ED Provider: Giovanni Feldman Dx/Rx/DC Orders Clinical Impression: Fall, Inguinal strain, Sprain of knee, Acute pain of right hip Instructions: ED Groin Strain, ED Knee Sprain Prescriptions: No Action escitalopram oxalate 20 mg tablet 20 mg PO DAILY Qty: 90 3RF acetaminophen [Tylenol Extra Strength] 500 mg tablet 1,000 mg PO Q6H PRN (Reason: fever or pain) albuterol sulfate [Ventolin HFA] 90 mcg/actuation HFA aerosol inhaler 1 - 2 puff inhalation Q4H PRN PRN (Reason: Wheezing) Qty: 1 0RF varenicline 1 mg tablet 1 mg PO BID omeprazole 40 mg capsule,delayed release(DR/EC) 40 mg PO DAILY ondansetron 4 mg tablet,disintegrating 4 mg PO BID levothyroxine 137 mcg tablet 137 mcg PO DAILY Qty: 30 6RF Primary Care Provider: Blaine Gage Referrals: Blaine Gage, COMMERCIAL ACCOUNT OFFICER-C [Primary Care Provider] - 10-14 Days if not better Print Language: Slovenian Disposition Disposition: Home, Self Care Discharge Date/Time: 03/08/24 20:11
[2024-03-08] MEDS: Ketorolac 60 MG/2 ML Vial IM (18:15)
--- NOTE | 2024-03-08 18:15 | RAD_ITS ---
STUDY: X-RAY - RIGHT KNEE REASON FOR EXAM: Female, 39 years old. injury TECHNIQUE: 3 view(s) of the knee. COMPARISON: Right knee x-ray dated April 28, 2022 FINDINGS: Normal visualized distal femur. Normal visualized proximal tibia. Healed proximal one third fibular shaft fracture. Normal proximal tibiofibular articulation. There is no demonstrated fracture. Normal medial femorotibial compartment. Normal lateral femorotibial compartment. Normal patellofemoral articulation. The soft tissue structures are unremarkable. RAD/Knee 3 Views IMPRESSION: 1. No acute fracture. 2. Healed proximal one third fibular fracture. Electronically Signed: Curry Arnold MD at 19:40 EDT ,
== END 2024-03-08 20:11 | disposition home or self-care (01) ==
PROVIDERS: Emergency Provider Emergency Medicine; PCP Nurse Practitioner Family; Visit Provider Emergency Medicine
DX: S76.811A Strain of other specified muscles, fascia and tendons at thigh level, right thigh, initial encounter (principal); J44.9 Chronic obstructive pulmonary disease, unspecified; S83.91XA Sprain of unspecified site of right knee, initial encounter; G47.33 Obstructive sleep apnea (adult) (pediatric); F17.210 Nicotine dependence, cigarettes, uncomplicated; E66.9 Obesity, unspecified; Z79.899 Other long term (current) drug therapy; W19.XXXA Unspecified fall, initial encounter; Z86.16 Personal history of COVID-19
CPT/HCPCS: 72170; 73562; 96372; 99282

== ENCOUNTER 2024-03-17 20:43 | Emergency (ER) | payer MEDICARE, MEDICAID, SELFPAY ==
[2024-03-17 20:44] VITALS: BP 127/92; PULSE 91; RESP 16; TEMP 36.2; O2SAT 96; BMI 52.6
--- NOTE | 2024-03-17 20:51 | EDS_ITS ---
HPI History of Present Illness Chief Complaint: Sore Throat [facility] Medical History Nodular goiter Arthritis Migraine headache History of pain when walking History of edema Shortness of breath on exertion Gastric reflux CPAP (continuous positive airway pressure) dependence Hypothyroidism Thyromegaly COVID-19 Wears glasses Edentulous History of brain disorder Herniated disc Smoker Chronic cough ZANA (obstructive sleep apnea) Obesity Chronic low back pain Kidney stones COPD (chronic obstructive pulmonary disease) Anemia Hydocephalus Panic attacks Bipolar depression manic phase Anxiety Home Medications ?Medication ?Instructions ?Recorded ?Last Taken ?Type escitalopram oxalate 20 mg tablet 20 mg PO DAILY DEPRESSION #90 tabs 12/21/22 03/08/24 Rx albuterol sulfate 90 mcg/actuation 1 - 2 puff inhalation Q4H PRN PRN 04/07/23 Unknown Rx aerosol inhaler (Ventolin HFA) Wheezing ##1 omeprazole 40 mg capsule,delayed 40 mg PO DAILY 10/25/23 03/08/24 History release ondansetron 4 mg disintegrating 4 mg PO BID WITH USE OF CHANTIX 10/25/23 03/08/24 History tablet varenicline 1 mg tablet 1 mg PO BID 10/25/23 03/08/24 History acetaminophen 500 mg tablet 1,000 mg PO Q6H PRN fever or pain 11/15/23 Unknown History (Tylenol Extra Strength) levothyroxine 137 mcg tablet 137 mcg PO DAILY #30 tabs 03/07/24 03/07/24 Rx amoxicillin 600 mg-potassium 5 ml PO BID 7 days #70 mL 03/17/24 Unknown Rx clavulanate 42.9 mg/5 mL oral suspension (Augmentin ES-) nystatin 100,000 unit/mL oral 2 ml PO 4X/DAY #100 mL 03/17/24 Unknown Rx suspension Allergy/AdvReac Type Severity Reaction Status Date / Time ceftriaxone sodium (From Allergy Hives Verified 03/17/24 20:44 Rocephin) tramadol Allergy Hives Verified 03/17/24 20:44 bupropion HCl (From AdvReac MAKES Verified 03/17/24 20:44 Wellbutrin) ANXIETY WORSE Family History Grandmother Asthma Thyroid disorder Mother Asthma Thyroid disorder COPD (chronic obstructive pulmonary disease) Aunt Asthma Heart disease Hypertension Thyroid disorder Emphysema, unspecified Grandfather Asthma Diabetes Hypertension Hyperlipidemia COPD (chronic obstructive pulmonary disease) Surgical History H/O ventral hernia repair History of incisional hernia repair H/O: hysterectomy History of ankle surgery History of cholecystectomy History of bilateral tubal ligation D&C left ankle ligament repair History of tonsillectomy History of 3 sections Social History household members: family housing: house number of children: 3 current occupational status: unemployed pets and animals: Yes Smoking Status: Current every day smoker tobacco type: cigarettes second hand exposure: Yes alcohol intake: never substance use type: does not use caffeine: No what type of physical activity do you participate in: walking frequency: daily seatbelt use: always do you feel safe at home: Yes EXAM Physical Exam Const Vital Signs: 03/17/24 20:44 Temperature 97.2 F L Temperature Source Temporal Pulse Rate 91 Respiratory Rate 16 Blood Pressure 127/92 H Blood Pressure Mean 103 Pulse Ox 96 Oxygen Delivery Method Room Air [facility] MDM MDM Narrative Medical decision making narrative: HISTORY OF PRESENT ILLNESS: Patient presents with sore throat. 2 days of symptoms. No history of diabetes. No vomiting. No neck stiffness or any bit open her mouth. REVIEW OF SYSTEMS: Pertinent positives: Sore throat Pertinent negatives: Drooling, neck stiffness, shortness of breath, chest pain, vomiting PHYSICAL EXAM: Nursing triage notes reviewed, Vital signs reviewed Constitutional: please see mdm HENT: MMM, no submandibular edema or induration, uvula midline, bilateral TMs pearly kent with no hyperemia or middle ear effusion, no mastoid tenderness, no trismus, posterior oropharynx with white exudates noted, erythema noted to bilateral tonsils. Uvula midline. Posterior oropharynx patent. No pooling secretions or drooling. Eyes: Pupils equal round and reactive to light, Extraocular muscles intact Neck: No stridor, no JVD, full neck ROM, anterior lymphadenopathy noted Lungs: Clear to auscultation, No wheezing or rales. No increased work of breathing, no conversational dyspnea, no accessory muscle use, no nasal flaring. No respiratory distress noted. The patient speaking full sentences. Heart: Regular rate and rhythm, No murmurs, No rubs and No gallops, 2+ distal pulses (radial, femoral, posterior tibial) in all extremities Skin: No rash or lesions noted MEDICAL DECISION MAKING: Chief Complaint: Sore throat External records reviewed: Last ED visit on [phone] for right hip pain Factors affecting care: Social determinants of health: History obtained from others: None Consults: None ALL IMAGES (IF OBTAINED) HAVE BEEN PERSONALLY REVIEWED AND INTERPRETED BY APOORVA MASON Narrative: The patient was hemodynamically stable, afebrile, nontoxic-appearing. She is speaking in full sentences. There is no signs of airway compromise at this time. I considered the following differential diagnosis: Bacterial versus viral pharyngitis, RPA, NUMERICAL CONTROL PROGRAMMER, Lemierre's syndrome, Bijan's angina. There is no clinical evidence of RPA, NUMERICAL CONTROL PROGRAMMER, Lemierre's syndrome along with and at this time. Given there is erythema and exudates noted exam was most consistent with oral thrush however cannot completely rule out bacterial infection so I treated her broadly patient will be given prophylactic antibiotics. Given oral nystatin solution for antifungal effect. The patient was given strict return precautions and follow-up instructions. The patient and/or family, caregivers express understanding. The patient and/or family, caregivers agrees with the plan. Total critical care time today provided was at least 0 minutes. This excludes separately billable procedures. Critical care time if documented is secondary to the patient having high probability of clinically significant/life threatening deterioration in the patient's condition which required my urgent intervention. Shared decision making: I will have a discussion with the patient and or visitors regarding risk/benefits of further testing or admission. They will be made aware of of the risk/benefits inherent in this decision they will be given the opportunity to voice understanding. Impression: 1. Sore throat 2. Bacterial pharyngitis 3. Oral thrush Disposition: Discharge home This note was generated with [employer] dictation software. It may contain incorrect words, spelling, and punctuation that were not noted in review of the chart prior to signing. Discharge Plan Triage Chief Complaint: Sore Throat ED Provider: Kd Marc Dx/Rx/DC Orders Clinical Impression: Oral thrush Instructions: Марина Infection: Thrush Prescriptions: New nystatin 100,000 unit/mL suspension 2 ml PO 4X/DAY Qty: 100 0RF Rx Instructions: Put 1 mL in each side of mouth 4 times a day. amoxicillin-pot clavulanate [Augmentin ES-600] 600-42.9 mg/5 mL suspension for reconstitution 5 ml PO BID 7 Days Qty: 70 0RF No Action escitalopram oxalate 20 mg tablet 20 mg PO DAILY Qty: 90 3RF acetaminophen [Tylenol Extra Strength] 500 mg tablet 1,000 mg PO Q6H PRN (Reason: fever or pain) albuterol sulfate [Ventolin HFA] 90 mcg/actuation HFA aerosol inhaler 1 - 2 puff inhalation Q4H PRN PRN (Reason: Wheezing) Qty: 1 0RF varenicline 1 mg tablet 1 mg PO BID omeprazole 40 mg capsule,delayed release(DR/EC) 40 mg PO DAILY ondansetron 4 mg tablet,disintegrating 4 mg PO BID levothyroxine 137 mcg tablet 137 mcg PO DAILY Qty: 30 6RF Primary Care Provider: Blaine Gage Referrals: Blaine Gage, SCREENPLAY WRITER-C [Primary Care Provider] - Activity Restrictions/Additional Instructions: Thank you for trusting us with your care today! You have been diagnosed with oral thrush was a fungal infection of the throat. Please use antifungal oral solution as prescribed. Please take oral antibiotics as well as I cannot be completely sure you do not have a bacterial infection as well. Please take Tylenol (2 pills, 650 mg), ibuprofen (2 pills, 400 mg) oral solution every 6 hours as needed for pain and fever control. Please return to the emergency department if your symptoms change or worsen. Specifically develop vomiting, cannot tolerate antibiotics, antifungals, develop drooling, inability to open your mouth, neck stiffness or chest tightness or pain. Please follow with your primary care physician for further outpatient evaluation and management. Print Language: Montenegrin Disposition Disposition: Home, Self Care
[2024-03-17] MEDS: Ibuprofen 100 MG/5 ML UDC 400 MG PO (21:15)
[2024-03-17] MEDS: Acetaminophen 650 MG/20 ML UDC 500 MG PO (21:15)
[2024-03-17] MEDS: Amox/Clav 400mg/5ml Susp 800 MG PO (21:18)
[2024-03-17] MEDS: NYSTATIN 500,000 UNIT/5 ML UDC 500000 UNIT PO (21:21)
[2024-03-17 21:24] VITALS: BP 138/72; PULSE 72; RESP 18; TEMP 36.8; O2SAT 97
== END 2024-03-17 21:30 | disposition home or self-care (01) ==
LOC: ED 21:08
PROVIDERS: Emergency Provider Emergency Medicine; PCP Nurse Practitioner Family; Visit Provider Emergency Medicine
DX: B37.0 Candidal stomatitis (principal); J44.9 Chronic obstructive pulmonary disease, unspecified; J02.9 Acute pharyngitis, unspecified; E03.9 Hypothyroidism, unspecified; F17.210 Nicotine dependence, cigarettes, uncomplicated; Z79.890 Hormone replacement therapy; Z79.899 Other long term (current) drug therapy
CPT/HCPCS: 99283

== ENCOUNTER 2024-05-06 07:00 | Emergency (ER) | payer MEDICARE, MEDICAID, SELFPAY ==
[2024-05-06 07:01] VITALS: BP 127/76; PULSE 100; RESP 18; TEMP 37.1; O2SAT 95; BMI 52.9
--- NOTE | 2024-05-06 07:28 | RAD_ITS ---
STUDY: X-RAY - LEFT ANKLE REASON FOR EXAM: Female, 39 years old. Injury/Pain TECHNIQUE: 2 views of the ankle. COMPARISON: None. FINDINGS: There is a fracture the medial malleolus of the distal tibia with 8 mm lateral displacement. There is an oblique fracture of the distal fibular shaft, with 5 mm lateral displacement. There is 8 mm lateral subluxation of the talar dome with respect to the distal tibia. Intact visualized talus and calcaneus. The visualized subtalar, talonavicular, calcaneocuboid and tarsal articulations are normal. There is soft tissue swelling around the ankle. RAD/Ankle 2 Views IMPRESSION: Fracture the medial malleolus of the distal tibia with 8 mm lateral displacement. Oblique fracture of the distal fibular shaft, with 5 mm lateral displacement. 8 mm lateral subluxation of the talar dome with respect to the distal tibia. Electronically Signed: Dev Bingham MD at 8:21 EDT ,
--- NOTE | 2024-05-06 07:28 | RAD_ITS ---
STUDY: X-RAY - LEFT FOOT CLINICAL: Female, 39 years old. Injury/Pain TECHNIQUE: 2 views of the left foot. COMPARISON: None. FINDINGS: There is a fracture the medial malleolus of the distal tibia with 8 mm lateral displacement. There is an oblique fracture of the distal fibular shaft, with 5 mm lateral displacement. There is 8 mm lateral subluxation of the talar dome with respect to the distal tibia. Intact talus, calcaneus, and tarsal bones. Normal visualized subtalar, talonavicular, calcaneocuboid, tarsal and tarsometatarsal articulations. Normal metatarsi. Normal metatarsophalangeal joint of the great toe. Normal tibial and fibular sesamoid bones. Normal interphalangeal joint of the great toe. Normal phalanges of the great toe. Normal second through fifth metatarsophalangeal joints. Normal interphalangeal joints and phalanges of the lesser toes. There is soft tissue swelling along the medial aspect of the hindfoot. RAD/Foot 2 Views IMPRESSION: Fracture the medial malleolus of the distal tibia with 8 mm lateral displacement. Oblique fracture of the distal fibular shaft, with 5 mm lateral displacement. 8 mm lateral subluxation of the talar dome with respect to the distal tibia. Electronically Signed: Dev Bingham MD at 8:22 EDT ,
--- NOTE | 2024-05-06 07:28 | RAD_ITS ---
STUDY: X-RAY - LEFT TIBIA AND FIBULA REASON FOR EXAM: Female, 39 years old. Injury/Pain. TECHNIQUE: 3 views of the left tibia and fibula were obtained. COMPARISON: None. FINDINGS: There is a fracture the medial malleolus of the distal tibia with 8 mm lateral displacement. There is an oblique fracture of the distal fibular shaft, with 5 mm lateral displacement. There is soft tissue swelling around the ankle. RAD/Tibia & Fibula 2 Views IMPRESSION: Fracture the medial malleolus of the distal tibia with 8 mm lateral displacement. Oblique fracture of the distal fibular shaft, with 5 mm lateral displacement. Electronically Signed: Dev Bingham MD at 8:19 EDT ,
--- NOTE | 2024-05-06 07:49 | ED.VIS.LOWEX ---
HPI History of Present Illness Chief Complaint: Fall Informant: patient Narrative Narrative: Patient is a 39-year-old female with history of prior right ankle/foot fracture presenting with left ankle/foot pain and injury. Patient states this morning she was going down her stairs and at the last step she slipped. She states her foot folded underneath her self and she felt a pop. When she went to straighten foot out she felt another loud pop. She is having significant pain at her foot and ankle. She thinks she broke it feels like her prior injury. Denies any associated numbness. I did receive 100 mcg of fentanyl and 4 of Zofran by EMS prearrival. She states initially helped with the pain but is now wearing off. Denies hitting her head. Is not on any blood thinners. No other complaints or concerns at this time. [facility] Medical History (Updated 05/06/24 @ 14:[address] Iram Foster, DO) Ankle fracture Left hip pain Right hip pain Nodular goiter Arthritis Migraine headache History of pain when walking History of edema Shortness of breath on exertion Gastric reflux CPAP (continuous positive airway pressure) dependence Hypothyroidism Thyromegaly COVID-19 Wears glasses Edentulous History of brain disorder Herniated disc Smoker Chronic cough ZANA (obstructive sleep apnea) Obesity Chronic low back pain Kidney stones COPD (chronic obstructive pulmonary disease) Anemia Hydocephalus Panic attacks Bipolar depression manic phase Anxiety Home Medications ?Medication ?Instructions ?Recorded ?Last Taken ?Type escitalopram oxalate 20 mg tablet 20 mg PO DAILY DEPRESSION #90 tabs 12/21/22 03/08/24 Rx albuterol sulfate 90 mcg/actuation 1 - 2 puff inhalation Q4H PRN PRN 04/07/23 Unknown Rx aerosol inhaler (Ventolin HFA) Wheezing ##1 omeprazole 40 mg capsule,delayed 40 mg PO DAILY 10/25/23 03/08/24 History release ondansetron 4 mg disintegrating 4 mg PO BID WITH USE OF CHANTIX 10/25/23 03/08/24 History tablet varenicline 1 mg tablet 1 mg PO BID 10/25/23 03/08/24 History acetaminophen 500 mg tablet 1,000 mg PO Q6H PRN fever or pain 11/15/23 Unknown History (Tylenol Extra Strength) levothyroxine 137 mcg tablet 137 mcg PO DAILY #30 tabs 03/07/24 03/07/24 Rx amoxicillin 600 mg-potassium 5 ml PO BID 7 days #70 mL 03/17/24 Unknown Rx clavulanate 42.9 mg/5 mL oral suspension (Augmentin ES-) nystatin 100,000 unit/mL oral 2 ml PO 4X/DAY #100 mL 03/17/24 Unknown Rx suspension ibuprofen 600 mg tablet 600 mg PO Q6H PRN PRN pain #20 05/06/24 Unknown Rx TABLETS miscellaneous medical supply #1 ea 05/06/24 Unknown Rx oxycodone 5 mg tablet 5 mg PO Q6H PRN pain 3 days #15 05/06/24 Unknown Rx tabs Allergy/AdvReac Type Severity Reaction Status Date / Time ceftriaxone sodium (From Allergy Hives Verified 05/06/24 07:04 Rocephin) tramadol Allergy Hives Verified 05/06/24 07:04 bupropion HCl (From AdvReac MAKES Verified 05/06/24 07:04 Wellbutrin) ANXIETY WORSE Family History Grandmother Asthma Thyroid disorder Mother Asthma Thyroid disorder COPD (chronic obstructive pulmonary disease) Aunt Asthma Heart disease Hypertension Thyroid disorder Emphysema, unspecified Grandfather Asthma Diabetes Hypertension Hyperlipidemia COPD (chronic obstructive pulmonary disease) Surgical History H/O ventral hernia repair History of incisional hernia repair H/O: hysterectomy History of ankle surgery History of cholecystectomy History of bilateral tubal ligation D&C left ankle ligament repair History of tonsillectomy History of 3 sections Social History household members: family housing: house number of children: 3 current occupational status: unemployed pets and animals: Yes Smoking Status: Current every day smoker tobacco type: cigarettes second hand exposure: Yes alcohol intake: never substance use type: does not use caffeine: No what type of physical activity do you participate in: walking frequency: daily seatbelt use: always do you feel safe at home: Yes ROS ROS ED Constitutional Constitutional ED: Denies chills or fever(s) Musculoskeletal Musculoskeletal: Reports other Details: left ankle and foot pain Integumentary Denies Abrasions or rash Neurologic Neurologic: Denies paresthesias or weakness Hematologic/Lymphatic Hematologic/Lymphatic: Denies easy bleeding or easy bruising EXAM Physical Exam Const Vital Signs: 05/06/24 07:01 05/06/24 07:05 05/06/24 09:01 Temperature 98.7 F Temperature Source Oral Pulse Rate 100 81 Respiratory Rate 18 18 Respiratory Effort Normal Respiratory Depth Normal Respiratory Pattern Normal Blood Pressure 127/76 H 152/87 H Blood Pressure Mean 93 108 Pulse Ox 95 98 Oxygen Delivery Method Room Air Room Air Room Air 05/06/24 11:00 05/06/24 13:16 05/06/24 15:00 Temperature Temperature Source Pulse Rate 80 84 90 Respiratory Rate 18 16 Respiratory Effort Respiratory Depth Respiratory Pattern Blood Pressure 152/96 H 140/81 H 136/90 H Blood Pressure Mean 114 100 105 Pulse Ox 98 94 94 Oxygen Delivery Method Room Air Room Air Positive well nourished, well developed and obese General Appearance ED: well developed Nutritional Appearance: obese HEENT Reports moist mucous membranes HEENT Narrative: Edentulous Chest Wall inspection of chest normal Resp normal respiratory effort Cardio regular rate and regular rhythm Cardio Narrative: 2+ left DP pulse Extremity Extremity Narrative: Swelling and significant tenderness of the left ankle. Tenderness seems to be localized around the medial malleolus. No significant deformity on exam. No tenderness of the distal foot. Mild tenderness to palpation over the proximal tibia. Compartments are soft. No other bony tenderness or abnormalities appreciated. Neuro oriented x3 Neuro Narrative: Sensation intact of the left foot. Patient able to wiggle her toes. Sensorium / Orientation: alert Motor Exam: Negative for general weakness Psych mental status grossly normal Skin no wounds MDM MDM MDM Narrative Medical decision making narrative: Patient evaluated for left lower extremity pain and injury. Differential includes ankle dislocation, ankle sprain, ankle fracture, foot fracture and proximal tibial injury. Patient will be given additional 6 mg IV morphine will obtain imaging. Patient otherwise hemodynamically stable and neuro vascularly intact. X-ray viewed by myself as well as radiology is consistent with a trimalar fracture. Patient states that she has a weak ankle on the right and does not think that she will be able to be nonweightbearing on the left because of this. Patient is given multiple doses of pain medication and continues to have pain. Given 1 mg of Dilaudid. Posterior slab/stirrup splint is placed. Patient is neuro vastly intact afterwards. Case is discussed with podiatry, Dr. Cisneros, who states that patient will be nonweightbearing for about a week until they can perform surgery but have to let the swelling go down first. Patient does not think she will be able to control her pain or function at home. I will add on labs anticipate admission for pain control and possible placement. Patient questions if she could get by with a wheelchair at home. Patient is have a leukocytosis 15.7 which I suspect is reactive. Remainder labs largely normal. Case discussed with hospitalist who did not feel that admission was appropriate if patient was not amenable to evaluation for SNF placement. He requested that I try to coordinate with case management about getting the patient a wheelchair for home from the ER. I do feel like wheelchair probably would be appropriate for patient. Patient is given further dose of Dilaudid in the emergency room and oxycodone. Case management evaluated the patient. They will work with medical supplies to try to coordinate getting a wheelchair for the patient so she can be discharged from the emergency room. If this cannot be coordinated or they do not have much available for her today patient will require observation hospital overnight until this can be arranged. The patient has a mobility limitation that cannot be sufficiently resolved by using a cane or walker. Use of a w/c will improve the participation in ADLs on a regular basis, in the home. Lab Data Attestation: I reviewed the patient's lab results. Labs: Laboratory Results - last 24 hr 05/06/24 09:08 WBC 15.7 H RBC 5.01 Hgb 13.3 Hct 43.6 MCV 87.0 MCH 26.5 L MCHC 30.5 L RDW Std Deviation 59.3 H RDW Coeff of Thony 18.8 H Plt Count 401 MPV 10.7 Immature Gran % (Auto) 0.600 Neut % (Auto) 68.1 Lymph % (Auto) 22.1 [place] % (Auto) 6.0 Eos % (Auto) 2.9 Baso % (Auto) 0.3 Absolute Neuts (auto) 10.7 H Absolute Lymphs (auto) 3.47 Nucleated RBC % 0 Sodium 138 Potassium 3.6 Chloride 102 Carbon Dioxide 28.0 Anion Gap 8 BUN 9 Creatinine 0.63 Estim Creat Clear Calc 214.78 Est GFR (MDRD) Af Amer 136 Est GFR (MDRD) Non-Af 112 BUN/Creatinine Ratio 14.2 Glucose 83 Calcium 9.5 Serum , Qual NEGATIVE Radiography Diagnostic Testing: Clinical Impression(s) from Imaging Studies Ankle X-Ray 05/06/24 07:28 IMPRESSION: Fracture the medial malleolus of the distal tibia with 8 mm lateral displacement. Oblique fracture of the distal fibular shaft, with 5 mm lateral displacement. 8 mm lateral subluxation of the talar dome with respect to the distal tibia. Electronically Signed: Dev Bingham MD at 8:21 EDT Reading Location ID and State: [id number] / [employer] , Service support , Foot X-Ray 05/06/24 07:28 IMPRESSION: Fracture the medial malleolus of the distal tibia with 8 mm lateral displacement. Oblique fracture of the distal fibular shaft, with 5 mm lateral displacement. 8 mm lateral subluxation of the talar dome with respect to the distal tibia. Electronically Signed: Dev Bingham MD at 8:22 EDT Reading Location ID and State: [id number] / [employer] , Service support , Tibia/Fibula X-Ray 05/06/24 07:28 IMPRESSION: Fracture the medial malleolus of the distal tibia with 8 mm lateral displacement. Oblique fracture of the distal fibular shaft, with 5 mm lateral displacement. Electronically Signed: Dev Bingham MD at 8:19 EDT , Procedures Lower Extremity Splints Lower Extremity Splint: Orthoglass, Stirrup and - (with posterior splab ) Splint Fabrication: Fabricated Location: Left Discharge Plan Triage Chief Complaint: Fall ED Provider: Iram Foster Dx/Rx/DC Orders Clinical Impression: Closed trimalleolar fracture of left ankle, Difficulty in walking Instructions: ED Ankle Fracture Prescriptions: New (DME) miscellaneous medical supply Misc See Rx Instructions .Route Qty: 1 0RF Rx Instructions: As directed oxycodone 5 mg tablet 5 mg PO Q6H PRN (Reason: pain) 3 Days Qty: 15 0RF ibuprofen 600 mg tablet 600 mg PO Q6H PRN PRN (Reason: pain) Qty: 20 0RF No Action escitalopram oxalate 20 mg tablet 20 mg PO DAILY Qty: 90 3RF acetaminophen [Tylenol Extra Strength] 500 mg tablet 1,000 mg PO Q6H PRN (Reason: fever or pain) albuterol sulfate [Ventolin HFA] 90 mcg/actuation HFA aerosol inhaler 1 - 2 puff inhalation Q4H PRN PRN (Reason: Wheezing) Qty: 1 0RF varenicline 1 mg tablet 1 mg PO BID omeprazole 40 mg capsule,delayed release(DR/EC) 40 mg PO DAILY ondansetron 4 mg tablet,disintegrating 4 mg PO BID nystatin 100,000 unit/mL suspension 2 ml PO 4X/DAY Qty: 100 0RF Rx Instructions: Put 1 mL in each side of mouth 4 times a day. amoxicillin-pot clavulanate [Augmentin ES-600] 600-42.9 mg/5 mL suspension for reconstitution 5 ml PO BID 7 Days Qty: 70 0RF levothyroxine 137 mcg tablet 137 mcg PO DAILY Qty: 30 6RF Primary Care Provider: Blaine Gage Referrals: Yemi Cisneros DPM [Med Staff - Active Staff] - 3-5 Days Blaine Gage, WRITER-C [Primary Care Provider] - Activity Restrictions/Additional Instructions: Call podiatry tomorrow to schedule outpatient follow-up. You will need surgery on your ankle to fix it. If you have worsening pain that you cannot get under control with medications that you are prescribed please return the emergency room. If you have numbness or lose feeling in the toes please return to the emergency room as well. Do not put any weight on the ankle. You may also alternate ibuprofen and Tylenol for pain. I would recommend taking daily senna, MiraLAX or Metamucil to help with constipation and can be brought on by pain medication. Print Language: Tajik Disposition Disposition: Home, Self Care
[2024-05-06] MEDS: morphine 8 MG/ML Syringe 6 MG IV (07:58)
[2024-05-06 09:01] VITALS: BP 152/87; PULSE 81; RESP 18; O2SAT 98
[2024-05-06] MEDS: HYDROmorphone 1 MG/ML Syringe IV ×2 (09:05→11:09)
--- NOTE | 2024-05-06 09:15 | PCM.PN.ORT ---
Objective Data Objective Data Vital Signs: Vital Signs Temp Pulse Resp BP Pulse Ox O2 Del Method 98.7 F 81 18 152/87 H 98 Room Air 05/06/24 07:01 05/06/24 09:01 05/06/24 09:01 05/06/24 09:01 05/06/24 09:01 05/06/24 09:01 Oxygen Delivery Method Room Air Weight: 379 lb 3.121 oz Body Mass Index (BMI) 52.9 Intake & Output: Intake and Output for Last 24 Hours 05/04/24 05/05/24 05/06/24 23:59 23:59 23:59 Intake Total 0 / 0 Balance 0 / 0 Lab / Micro Data 05/06/24 09:08 05/06/24 09:08 Radiography Diagnostic Testing: Radiology Impression Ankle X-Ray 05/06/24 07:28 IMPRESSION: Fracture the medial malleolus of the distal tibia with 8 mm lateral displacement. Oblique fracture of the distal fibular shaft, with 5 mm lateral displacement. 8 mm lateral subluxation of the talar dome with respect to the distal tibia. Electronically Signed: Dev Bingham MD at 8:21 EDT , Foot X-Ray 05/06/24 07:28 IMPRESSION: Fracture the medial malleolus of the distal tibia with 8 mm lateral displacement. Oblique fracture of the distal fibular shaft, with 5 mm lateral displacement. 8 mm lateral subluxation of the talar dome with respect to the distal tibia. Electronically Signed: Dev Bingham MD at 8:22 EDT , Tibia/Fibula X-Ray 05/06/24 07:28 IMPRESSION: Fracture the medial malleolus of the distal tibia with 8 mm lateral displacement. Oblique fracture of the distal fibular shaft, with 5 mm lateral displacement. Electronically Signed: Dev Bingham MD at 8:19 EDT , Assessment & Plan Assessment/Plan (1) Ankle fracture: PLAN: discussed with ED provider- -never saw the patient in the office - ok to refer to podiatry - no further concerns
[2024-05-06 09:18] LABS: Absolute Lymphocyte Count 3.47 X10^3/uL (0.83-4.51); Absolute Neutrophil Count 10.7 X10^3/uL (2.0-7.7); Basophil# 0.05 X10^3/uL; Basophil% 0.3 % (0-1); Eosinophil# 0.46 X10^3/uL; Eosinophils% 2.9 % (0-5); Hematocrit 43.6 % (37-47); Hemoglobin 13.3 g/dL (12.0-15.0); Lymphocyte # 3.47 X10^3/ul (0.83-4.51); Lymphocyte % 22.1 % (19-41); Mean Corp Hgb Conc 30.5 g/dL (32-36); Mean Corpuscular Hgb 26.5 pg (27.0-32.0); Mean Platelet Vol. 10.7 fl (6.2-12.0); Monocyte# 0.95 X10^3/uL; NRBC Flagged by Analyzer 0 % (0-5); Neutrophil # 10.69 X10^3/uL (2.7-7.7); Neutrophil % 68.1 % (47-70); Platelet Count 401 K/mm3 (150-450); RBC Distribution Width CV 18.8 % (11.6-14.6); RBC Distribution Width SD 59.3 fl (35.1-43.9); Red Blood Count 5.01 M/mm3 (4.2-5.4); White Blood Count 15.7 K/mm3 (4.4-11.0)
[2024-05-06 09:24] LABS: Internal QC Validated? YES +Cl - CLEAR BKGD; Pregnancy, Serum, hCG Quali. NEGATIVE Negative
[2024-05-06 09:28] LABS: Anion Gap 8 (5-15); BUN 9 mg/dL (7-18); BUN/Creat Ratio 14.2 RATIO (10-20); Calcium,Total 9.5 mg/dL (8.5-10.1); Chloride 102 mmol/L (98-107); Creatinine, Serum 0.63 mg/dL (0.55-1.02); EST Glomerular Filtration Rate 112 mL/min (>60); Est Glom Filt Rate - Afr Amer 136 mL/min (>60); Estimated Creatinine Clearance 214.78 ml/min; Glucose 83 mg/dL (74-106); Potassium 3.6 mmol/L (3.5-5.1); Sodium Level 138 mmol/L (136-145)
[2024-05-06 11:00] VITALS: BP 152/96; PULSE 80; RESP 18; O2SAT 98
--- NOTE | 2024-05-06 11:07 | NURSING ---
DR CORTES FOR DR VALADEZ
[2024-05-06] MEDS: Ketorolac 15 MG/ML Vial IV (11:08)
[2024-05-06 13:16] VITALS: BP 140/81; PULSE 84; RESP 16; O2SAT 94
[2024-05-06] MEDS: oxyCODONE 5 MG Tablet PO (13:29)
[2024-05-06 15:00] VITALS: BP 136/90; PULSE 90; O2SAT 94
== END 2024-05-06 16:13 | disposition home or self-care (01) ==
PROVIDERS: Emergency Provider Emergency Medicine; PCP Nurse Practitioner Family; Visit Provider Emergency Medicine
DX: S82.852A Displaced trimalleolar fracture of left lower leg, initial encounter for closed fracture (principal); F31.9 Bipolar disorder, unspecified; J44.9 Chronic obstructive pulmonary disease, unspecified; W10.9XXA Fall (on) (from) unspecified stairs and steps, initial encounter; R26.2 Difficulty in walking, not elsewhere classified; K21.9 Gastro-esophageal reflux disease without esophagitis; G47.33 Obstructive sleep apnea (adult) (pediatric); E66.9 Obesity, unspecified; F41.0 Panic disorder [episodic paroxysmal anxiety]; E03.9 Hypothyroidism, unspecified; M19.90 Unspecified osteoarthritis, unspecified site; M54.50 Low back pain, unspecified; G89.29 Other chronic pain; F17.210 Nicotine dependence, cigarettes, uncomplicated; Z88.1 Allergy status to other antibiotic agents; Z88.5 Allergy status to narcotic agent; Z79.899 Other long term (current) drug therapy; Z79.890 Hormone replacement therapy
CPT/HCPCS: 29515; 73590; 73600; 73620; 80048; 84703; 85025; 96374; 96375; 96376; 99282; A4216

== ENCOUNTER → 2024-05-15 | Outpatient (CLI) | payer MEDICARE, MEDICAID, SELFPAY ==
[2024-05-15 16:23] LABS: Absolute Lymphocyte Count 2.38 X10^3/uL (0.83-4.51); Absolute Neutrophil Count 7.8 X10^3/uL (2.0-7.7); Basophil# 0.05 X10^3/uL; Basophil% 0.4 % (0-1); Eosinophil# 0.41 X10^3/uL; Eosinophils% 3.6 % (0-5); Hematocrit 38.2 % (37-47); Hemoglobin 11.9 g/dL (12.0-15.0); Lymphocyte # 2.38 X10^3/ul (0.83-4.51); Lymphocyte % 20.8 % (19-41); Mean Corp Hgb Conc 31.2 g/dL (32-36); Mean Corpuscular Volume 83.4 fL (81-99); Mean Platelet Vol. 9.7 fl (6.2-12.0); NRBC Flagged by Analyzer 0 % (0-5); Neutrophil # 7.75 X10^3/uL (2.7-7.7); Neutrophil % 67.6 % (47-70); Platelet Count 412 K/mm3 (150-450); RBC Distribution Width SD 54.3 fl (35.1-43.9); Red Blood Count 4.58 M/mm3 (4.2-5.4); White Blood Count 11.5 K/mm3 (4.4-11.0)
[2024-05-15 16:57] LABS: ALB/GLOB Ratio 0.7 RATIO (0.9-2.4); AST(SGOT) 13 U/L (15-37); Alanine Aminotransfer ALT/SGPT 19 U/L (13-56); Albumin, Serum 3.2 g/dL (3.2-5.0); Alkaline Phosphatase 103 U/L (45-117); Anion Gap 6 (5-15); BUN 10 mg/dL (7-18); BUN/Creat Ratio 18.9 RATIO (10-20); Calcium,Total 9.3 mg/dL (8.5-10.1); Chloride 104 mmol/L (98-107); Creatinine, Serum 0.53 mg/dL (0.55-1.02); EST Glomerular Filtration Rate 138 mL/min (>60); Est Glom Filt Rate - Afr Amer 167 mL/min (>60); Globulin 4.6 g/dL (2.2-4.2); Glucose 88 mg/dL (74-106); International Normalized Ratio 1.1; Protein, Total 7.8 g/dL (6.4-8.2); Prothrombin Time (Protime)PT. 13.7 SECONDS (11.7-14.9); Sodium Level 135 mmol/L (136-145); T4 Free Direct 1.06 ng/dL (0.76-1.46)
== END | disposition home or self-care (01) ==
LOC: VSLAB 15:59
PROVIDERS: PCP Nurse Practitioner Family; Visit Provider Nurse Practitioner Family
DX: S82.51XA Displaced fracture of medial malleolus of right tibia, initial encounter for closed fracture (principal); E06.3 Autoimmune thyroiditis; E03.8 Other specified hypothyroidism
CPT/HCPCS: 36415; 80053; 84439; 84443; 85025; 85610

== ENCOUNTER 2024-05-16 13:23 | Emergency (ER) | payer MEDICARE, MEDICAID, SELFPAY ==
[2024-05-16 13:23] VITALS: BP 130/94; PULSE 92; RESP 18; TEMP 36.7; O2SAT 95
--- NOTE | 2024-05-16 14:10 | EDS_ITS ---
HPI <PAN Vega - Last Filed: 05/16/24 15:23> History of Present Illness Chief Complaint: Lower Extremity Injury Narrative Narrative: Patient is a 39-year-old female with history of hypothyroidism, significant obesity, presenting to the emergency department with pain to the left leg. Patient states that that she was seen here on May 06, 2024, she was diagnosed with a fracture of the medial malleolus with a lateral displacement as well as an oblique fracture of the distal fibular shaft. She is currently following with Dr. Cisneros, when she was laying in the bed yesterday, she felt a pain in her left calf, the nurse on-call told her to go to the emergency department for possible DVT. Patient's she has been less active since the injury. Patient currently gets around by wheelchair. Patient does have difficulty with any ambulation or ADLs secondary to her obesity. PFSH <PAN Vega - Last Filed: 05/16/24 15:23> [facility] Medical History (Updated 05/16/24 @ 15:23 by PAN Vega) Ankle fracture Left hip pain Right hip pain Nodular goiter Arthritis Migraine headache History of pain when walking History of edema Shortness of breath on exertion Gastric reflux CPAP (continuous positive airway pressure) dependence Hypothyroidism Thyromegaly COVID-19 Wears glasses Edentulous History of brain disorder Herniated disc Smoker Chronic cough ZANA (obstructive sleep apnea) Obesity Chronic low back pain Kidney stones COPD (chronic obstructive pulmonary disease) Anemia Hydocephalus Panic attacks Bipolar depression manic phase Anxiety Home Medications ?Medication ?Instructions ?Recorded ?Last Taken ?Type escitalopram oxalate 20 mg tablet 20 mg PO DAILY DEPRESSION #90 tabs 12/21/22 03/08/24 Rx albuterol sulfate 90 mcg/actuation 1 - 2 puff inhalation Q4H PRN PRN 04/07/23 Unknown Rx aerosol inhaler (Ventolin HFA) Wheezing ##1 omeprazole 40 mg capsule,delayed 40 mg PO DAILY 10/25/23 03/08/24 History release ondansetron 4 mg disintegrating 4 mg PO BID WITH USE OF CHANTIX 10/25/23 03/08/24 History tablet varenicline 1 mg tablet 1 mg PO BID 10/25/23 03/08/24 History acetaminophen 500 mg tablet 1,000 mg PO Q6H PRN fever or pain 11/15/23 Unknown History (Tylenol Extra Strength) levothyroxine 137 mcg tablet 137 mcg PO DAILY #30 tabs 03/07/24 03/07/24 Rx amoxicillin 600 mg-potassium 5 ml PO BID 7 days #70 mL 03/17/24 Unknown Rx clavulanate 42.9 mg/5 mL oral suspension (Augmentin ES-) nystatin 100,000 unit/mL oral 2 ml PO 4X/DAY #100 mL 03/17/24 Unknown Rx suspension ibuprofen 600 mg tablet 600 mg PO Q6H PRN PRN pain #20 05/06/24 Unknown Rx TABLETS miscellaneous medical supply #1 ea 05/06/24 Unknown Rx oxycodone 5 mg tablet 5 mg PO Q6H PRN pain 3 days #15 05/06/24 Unknown Rx tabs Allergy/AdvReac Type Severity Reaction Status Date / Time ceftriaxone sodium (From Allergy Hives Verified 05/16/24 13:25 Rocephin) tramadol Allergy Hives Verified 05/16/24 13:25 bupropion HCl (From AdvReac MAKES Verified 05/16/24 13:25 Wellbutrin) ANXIETY WORSE Family History Grandmother Asthma Thyroid disorder Mother Asthma Thyroid disorder COPD (chronic obstructive pulmonary disease) Aunt Asthma Heart disease Hypertension Thyroid disorder Emphysema, unspecified Grandfather Asthma Diabetes Hypertension Hyperlipidemia COPD (chronic obstructive pulmonary disease) Surgical History H/O ventral hernia repair History of incisional hernia repair H/O: hysterectomy History of ankle surgery History of cholecystectomy History of bilateral tubal ligation D&C left ankle ligament repair History of tonsillectomy History of 3 sections Social History household members: family housing: house number of children: 3 current occupational status: unemployed pets and animals: Yes Smoking Status: Current every day smoker tobacco type: cigarettes second hand exposure: Yes alcohol intake: never substance use type: does not use caffeine: No what type of physical activity do you participate in: walking frequency: daily seatbelt use: always do you feel safe at home: Yes JUNO Baker ELECTRONIC DESIGN ENGINEER-C - Last Filed: 05/16/24 15:23> ROS ED ROS Narrative Constitutional: Negative for fever, chills, weight loss, weakness Eyes: Negative for vision loss, vision change, double vision ENT: Negative for any sore throat, ear pain, congestion Cardiovascular: Negative for any chest pain, tightness, palpitations Respiratory: Negative for any cough, sputum production, hemoptysis, dyspnea, dyspnea on exertion, orthopnea Gastrointestinal: Negative for any abdominal pain, nausea, vomiting, diarrhea, constipation, blood in stool, blood in vomit : Negative for any urinary frequency, dysuria, retention, blood in urine Muscle skeletal: Negative for any neck pain, back pain. Positive for intermittent pain to the left leg Neurological: Negative for any headache, syncope, dizziness Skin: Negative for any rashes, itching, abrasions, lacerations Psychiatric: Negative for any depression, anxiety, stress, suicidal ideation, homicidal ideation Hematologic: Negative for any excessive bruising, easy bleeding EXAM <PAN Vega - Last Filed: 05/16/24 15:23> Physical Exam Narrative Exam Narrative: Vital signs reviewed. HEET: Head normocephalic atraumatic, TMs clear bilaterally. Posterior pharynx is clear, moist mucous membranes. Nares clear bilaterally. Neck: Supple with no lymphadenopathy or tenderness. No signs of meningismus. Cardiac: Regular rate and rhythm no murmurs gallops or rubs, equal peripheral pulses bilaterally. Respiratory: Lungs clear to auscultation bilaterally. No chest tenderness. Abdomen: Soft, nontender, nondistended. No abdominal bruit or pulsatile masses. No hepatosplenomegaly Extremities: Patient's left lower extremity is in a posterior splint with fiberglass. There is no color change. Patient has good cap refill to the toes. Neuro: Cranial nerves II through XII intact, no focal neurological deficits. Skin: Clean dry and intact with no rash, purpura, petechiae, vesicles or pustules. Backs/flank: No CVA tenderness, no midline spinal tenderness, no deformity. Psych: Normal mood and affect. No SI, HI or acute psychosis. Const Vital Signs: 05/16/24 13:23 05/16/24 15:23 Temperature 98.1 F Temperature Source Oral Pulse Rate 92 Respiratory Rate 18 Blood Pressure 130/94 H Blood Pressure Mean 106 Pulse Ox 95 Oxygen Delivery Method Room Air Room Air <José Miguel Posada MD - Last Filed: 05/16/24 15:36> Physical Exam Const Vital Signs: 05/16/24 13:23 05/16/24 15:23 Temperature 98.1 F Temperature Source Oral Pulse Rate 92 Respiratory Rate 18 Blood Pressure 130/94 H Blood Pressure Mean 106 Pulse Ox 95 Oxygen Delivery Method Room Air Room Air [facility] <PAN Vega - Last Filed: 05/16/24 15:23> [facility] Lab Data Labs: Laboratory Results - last 24 hr 05/16/24 14:14 D-Dimer Quant (PE/DVT) 1.34 H* Treatment and Re-Evaluation :: Differential diagnosis includes however is not limited to: Left leg DVT, sequelae of fracture, edema, vascular emergency, compartment syndrome Patient appears generally well, vital signs are stable, patient is nontoxic- appearing. Presenting to the emerged part with complaints of left lower extremity pain. Patient does have a history of a fibular fracture 2 weeks ago. Patient did have a D-dimer that was positive, secondary this, patient did have a venous duplex of left lower extremity. This was negative. At this time, is no evidence of a DVT. At this time, patient will continue following up with Dr. Cisneros who is going to perform her surgery. Patient instructed to return for any worsening symptoms, patient stable for discharge. <José Miguel Posada MD - Last Filed: 05/16/24 15:36> [facility] Narrative Medical decision making narrative: Dr. Posada: I have personally performed a face to face assessment of the patient and have reviewed the GISSELL Note. I performed a substantive portion of the visit including all aspects of the following. My bui findings include: History is left calf pain, history of foot fracture, currently in splint. Pain is located in an area where proximal portion of the splint taking into left calf. Initial injury 2 weeks ago. No chest pain or shortness of breath. Sent in by podiatry, Dr. Cisneros for rule out DVT. Exam is afebrile. Vital signs noted. Regular rate and rhythm. Lungs clear to auscultation bilaterally. Mild tenderness to palpation left calf, no noted swelling or erythema. Medical Decision Making: D-dimer originally checked by the nurse practitioner. I reviewed the laboratory work and she does have elevated D-dimer, but this could be from her fracture. Ultrasound obtained and there is no evidence of DVT. Follow-up podiatry. Discharge. Other additions or changes: [None] History & Record Review Discussion w/independent historian: Patient Lab Data Labs: Laboratory Results - last 24 hr 05/16/24 14:14 D-Dimer Quant (PE/DVT) 1.34 H* Discharge Plan Triage Chief Complaint: Lower Extremity Injury ED Midlevel Provider: Talat Baker ED Provider: José Miguel Posada Dx/Rx/DC Orders Clinical Impression: Left leg pain, History of fracture of left ankle Instructions: ED RICE Prescriptions: No Action escitalopram oxalate 20 mg tablet 20 mg PO DAILY Qty: 90 3RF acetaminophen [Tylenol Extra Strength] 500 mg tablet 1,000 mg PO Q6H PRN (Reason: fever or pain) albuterol sulfate [Ventolin HFA] 90 mcg/actuation HFA aerosol inhaler 1 - 2 puff inhalation Q4H PRN PRN (Reason: Wheezing) Qty: 1 0RF varenicline 1 mg tablet 1 mg PO BID omeprazole 40 mg capsule,delayed release(DR/EC) 40 mg PO DAILY ondansetron 4 mg tablet,disintegrating 4 mg PO BID (DME) miscellaneous medical supply Misc See Rx Instructions .Route Qty: 1 0RF Rx Instructions: As directed oxycodone 5 mg tablet 5 mg PO Q6H PRN (Reason: pain) 3 Days Qty: 15 0RF ibuprofen 600 mg tablet 600 mg PO Q6H PRN PRN (Reason: pain) Qty: 20 0RF nystatin 100,000 unit/mL suspension 2 ml PO 4X/DAY Qty: 100 0RF Rx Instructions: Put 1 mL in each side of mouth 4 times a day. amoxicillin-pot clavulanate [Augmentin ES-600] 600-42.9 mg/5 mL suspension for reconstitution 5 ml PO BID 7 Days Qty: 70 0RF levothyroxine 137 mcg tablet 137 mcg PO DAILY Qty: 30 6RF Primary Care Provider: Eli Merino Referrals: Yemi Cisneros, KIMM [Med Staff - Active Staff] - Eli Merino, ELECTRONIC DESIGN ENGINEER-C [Primary Care Provider] - Activity Restrictions/Additional Instructions: Please keep your left leg elevated, you may continue to ice. Your DVT study was negative today. Follow-up outpatient Print Language: Turkish Disposition Disposition: Home, Self Care
[2024-05-16 14:33] LABS: D-Dimer Quantitative (DVT/PE) 1.34 FEU/ug/m (0.27-0.49)
--- NOTE | 2024-05-16 14:33 | VDLE_ITS ---
Reason For Study: elevated D-Dimer (1.37) Procedure LEFT This is a venous duplex using B-mode, color GSV is normal. flow and spectral Doppler. CFV is compressible, spontaneous, phasic, Exam performed portable in ED. competent, and demonstrates normal The study was technically difficult. augmentation. Due to body habitus 380#, left ankle fracture FV is compressible, spontaneous, phasic, in bandages/brace. competent and demonstrates normal A preliminary report was called and/or faxed augmentation. to Talat Baker MOLDED GOODS OPERATOR-C @ 15:15. POP V is compressible, spontaneous, phasic, competent and demonstrates normal augmentation. T/P Trunk is compressible. PTV is compressible. Unable to visualize PERV. VL/Venous Duplex US, Unilateral Interpretation Summary Deep veins of the left lower extremity are patent and compressible segmentally. There is no evidence of left lower extremity deep vein thrombosis. The left great saphenous vein devan ears patent and compressible segmentally. Limited study Ordering Physician: Talat Baker Referring Physician: Eli Merino Performed By: Mohini Freire, PACO, RVT
--- NOTE | 2024-05-16 15:34 | ED.RN ---
This RN walked into the room and the patient was on the phone and stated They didnt remove my brace for the ultrasound and seemed irritated about it. This RN stated your dvt is negative would you like me to get the doctor in here to discuss anything else? The patient declined. This RN stated It seems like you are not happy with us based on that conversation.. She said i was talking to my son and trying to quickly get off the phone, I am fine. This RN said thank you for your time, have a great day!
--- NOTE | 2024-05-16 15:47 | ED.RN ---
when this rn was attempting to help patient into bed and after patient assists self into bed, this rn goes into room and pt states i can feel my foot moving around in my splint and i still have 2 weeks until my surgery.
== END 2024-05-16 15:42 | disposition home or self-care (01) ==
PROVIDERS: Nurse Practitioner; Emergency Provider Emergency Medicine; PCP Nurse Practitioner Family; Referring Provider Emergency Medicine; Visit Provider Emergency Medicine
DX: M79.605 Pain in left leg (principal); F31.9 Bipolar disorder, unspecified; J44.9 Chronic obstructive pulmonary disease, unspecified; S82.52XA Displaced fracture of medial malleolus of left tibia, initial encounter for closed fracture; S82.432A Displaced oblique fracture of shaft of left fibula, initial encounter for closed fracture; X58.XXXA Exposure to other specified factors, initial encounter; F41.0 Panic disorder [episodic paroxysmal anxiety]; F17.210 Nicotine dependence, cigarettes, uncomplicated; E03.9 Hypothyroidism, unspecified; E66.9 Obesity, unspecified; G47.33 Obstructive sleep apnea (adult) (pediatric); K21.9 Gastro-esophageal reflux disease without esophagitis; M54.50 Low back pain, unspecified; M19.90 Unspecified osteoarthritis, unspecified site; G89.29 Other chronic pain; Z88.1 Allergy status to other antibiotic agents; Z74.09 Other reduced mobility; Z79.890 Hormone replacement therapy; Z79.899 Other long term (current) drug therapy
CPT/HCPCS: 85379; 93971; 99282

== ENCOUNTER 2024-06-06 19:45 | Observation (INO) | payer MEDICARE, MEDICAID, SELFPAY ==
[2024-06-06] VITALS (13 sets, daily range): BP systolic 114–141; BP diastolic 64–112; PULSE 83–129; RESP 16–20; TEMP 36.1–36.8; O2SAT 86–97; BMI 52.4; BMI 54.9
[2024-06-06] MEDS: Lactated Ringers 1,000 ML 15 ML IV (11:29)
--- NOTE | 2024-06-06 11:46 | PCM.PRE.AN2 ---
ASA Classification* ASA Classification ASA Classification: 3 Assessment & Plan Anesthesia* Anesthesia Assessment Anesthesia Assessment: Discussed sedation and/or anesthesia options, risks, benefits, and alternatives with patient/parents/legal guardian/POA. Questions invited. The patient/parents/legal guardian/POA seems to understand and agrees to proceed with anesthesia plan. Reviewed the physical assessment, medical history, allergy history and patient home medications list prior to surgery/procedure/anesthetic and documented any changes. Performed airway and anesthesia risk assessments. Anesthesia Type Anesthesia Type: General (see written pre anesthesia record for full assessment) and Block (see written pre anesthesia record for full assessment) Anesthesia Focused Assessment* Temperature: 96.9 F Pulse Rate: 83 Blood Pressure: 116/99 Respiratory Rate: 16 Pulse Ox: 97 Airway Assessment Mouth opens: >3 cm Mallampati Score: III Focused Labs Anesthesia Preop lab: CBC WBC 11.5 K/mm3 (4.4-11.0) H 05/15/24 16:00 RBC 4.58 M/mm3 (4.2-5.4) 05/15/24 16:00 Hgb 11.9 g/dL (12.0-15.0) L 05/15/24 16:00 Hct 38.2 % (37-47) 05/15/24 16:00 Plt Count 412 K/mm3 (150-450) 05/15/24 16:00 CHEMISTRY Potassium 4.0 mmol/L (3.5-5.1) 05/15/24 16:00 Sodium 135 mmol/L (136-145) L 05/15/24 16:00 Magnesium 1.9 mg/dL (1.6-2.6) 07/28/21 12:49 BUN 10 mg/dL (7-18) 05/15/24 16:00 Creatinine 0.53 mg/dL (0.55-1.02) L 05/15/24 16:00 Glucose 88 mg/dL (74-106) 05/15/24 16:00 POC Glucose 94 mg/dL (70-110) 08/02/21 06:29 TSH 8.960 uIU/mL (0.358-3.740) H 05/15/24 16:00 COAG PT 13.7 SECONDS (11.7-14.9) 05/15/24 16:00 HCG, Quant < 1 mIU/mL (<9 non-preg) 10/21/18 15:22 Urine Test Negative Negative 08/02/21 06:18 Pre-Assessment Diagnosis/Proposed Procedure Planned Operative Procedure(s): (L) ORIF, Bimalleolar Ankle Fracture with Repair of Syndesmotic and Application of Splint Anesthesia History Anesthesia History - legal office administrator: Anesthesia History - legal office administrator Hx Hospitalization No 05/30/24 13:09 Any Problems With Anesthesia No 05/30/24 13:09 Cholinesterase deficiency No 05/30/24 13:09 You/Your Family Experience No 05/30/24 13:09 fever (hyperthermia) with Relationship Recent Exposure to Contagious No 06/06/24 11:05 Disease Does patient have nerve No 05/30/24 13:09 stimulator Patient instructed to have device shut off --Does patient have Pacemaker No 06/06/24 11:05 or ICD? When Was Last Pacemaker Check QUESTION #4 FULL TEXT: You/Your Family Experience fever (hyperthermia) with Anesthesia Last Oral Intake Last Oral intake: Last Oral Intake NPO since 22:00 06/06/24 11:05 Meds taken in AM with sips of Yes 06/06/24 11:05 water? Meds patient instructed to escitalopram, omeprazole and 06/06/24 11:05 take am of surgery zofran PONV PONV - legal office administrator: PONV - legal office administrator Female Yes 05/30/24 13:09 HX of Motion Sickness No 05/30/24 13:09 HX of N/V After Surgery No 05/30/24 13:09 Non-Smoker No 05/30/24 13:09 Duration of Surgery greater Yes 05/30/24 13:09 than 60 minutes Number of Risk Factors 2 05/30/24 13:09 PONV Score Moderate Risk 05/30/24 13:09 Height & Weight Height & Weight: Anesthesia: Height & Weight Height 5 ft 11 in 06/06/24 11:05 Weight: 170.551 kg 06/06/24 11:05 Body Mass Index (BMI) 52.4 06/06/24 11:05 Respiratory Assessment Respiratory Assessment - legal office administrator: Respiratory Tract Infection Hx - legal office administrator Hx Respiratory Tract Infection No 05/30/24 13:09 STOP Sleep Apnea STOP Sleep Apnea - legal office administrator: STOP Sleep Apnea - legal office administrator Hx Hypertension No 05/30/24 13:09 Hx Sleep Apnea Yes 05/30/24 13:09 CPAP Yes: NONCOMPLIANT 05/30/24 13:09 BIPAP No 05/30/24 13:09 Do you snore loudly (louder than talking or can be heard Do you often feel tired/ fatigued/ sleepy during daytime? Has anyone observed you stop breathing during sleep? STOP Results Positive 05/30/24 13:09 QUESTION #5 FULL TEXT : Do you snore loudly (louder than talking or can be heard through closed doors)? 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 Specify any problems Hx of Preganancy in last 3 N/A 05/30/24 13:09 Months Nurse Filling Out Transfusion NBUCHER 05/30/24 13:09 & Questions: Date: 05/30/24 05/30/24 13:09 Time: 13:11 05/30/24 13:09 Patient unable to answer at this time (ie. confused, unrespo /Reproduction History /Reproductive History - legal office administrator: /Reproductive Hx- legal office administrator Hx Now Gestational Age (in weeks): EDC: Hx Hx Para Hx Section SAB No 05/30/24 13:09 Active Medications Active Medications: Current Medications Generic Name Dose Route Start Last Admin Trade Name Freq PRN Reason Stop Dose Admin Lactated Ringer's 1,000 mls @ 15 mls/hr 06/06/24 11:00 06/06/24 11:29 IV 06/12/24 00:19 15 mls/hr .Q48H VALENTÍN Administration Protocol Clindamycin Phosphate 900 mg in 50 mls @ 75 mls/hr 06/06/24 11:18 Cleocin IV 06/06/24 11:57 X1 ONE PFSH Medical History Ankle fracture Left hip pain Right hip pain Nodular goiter Arthritis Migraine headache History of pain when walking History of edema Shortness of breath on exertion Gastric reflux CPAP (continuous positive airway pressure) dependence Hypothyroidism Thyromegaly COVID-19 Wears glasses Edentulous History of brain disorder Herniated disc Smoker Chronic cough ZANA (obstructive sleep apnea) Obesity Chronic low back pain Kidney stones COPD (chronic obstructive pulmonary disease) Anemia Hydocephalus Panic attacks Bipolar depression manic phase Anxiety Home Medications ?Medication ?Instructions ?Recorded ?Last Taken ?Type escitalopram oxalate 20 mg tablet 20 mg PO DAILY DEPRESSION #90 tabs 12/21/22 06/06/24 07:30 Rx albuterol sulfate 90 mcg/actuation 1 - 2 puff inhalation Q4H PRN PRN 04/07/23 Unknown Rx aerosol inhaler (Ventolin HFA) Wheezing ##1 omeprazole 40 mg capsule,delayed 40 mg PO DAILY 10/25/23 06/06/24 07:30 History release ondansetron 4 mg disintegrating 4 mg PO BID WITH USE OF CHANTIX 10/25/23 06/06/24 07:30 History tablet varenicline 1 mg tablet 1 mg PO BID 10/25/23 03/08/24 History acetaminophen 500 mg tablet 1,000 mg PO Q6H PRN fever or pain 11/15/23 Unknown History (Tylenol Extra Strength) nystatin 100,000 unit/mL oral 2 ml PO 4X/DAY #100 mL 03/17/24 Unknown Rx suspension miscellaneous medical supply #1 ea 05/06/24 Unknown Rx oxycodone 5 mg tablet 5 mg PO Q6H PRN pain 3 days #15 05/06/24 Unknown Rx tabs oxycodone 5 mg tablet 5 mg PO Q6H PRN pain 2 days #8 tabs 05/28/24 Unknown Rx ibuprofen 800 mg tablet 800 mg PO TID PRN PRN pain 05/30/24 Unknown History levothyroxine 137 mcg tablet 137 mcg PO QHS 05/30/24 Unknown History Allergy/AdvReac Type Severity Reaction Status Date / Time ceftriaxone sodium (From Allergy Hives Verified 05/30/24 13:04 Rocephin) tramadol Allergy Hives Verified 05/30/24 13:04 bupropion HCl (From AdvReac MAKES Verified 05/30/24 13:04 Wellbutrin) ANXIETY WORSE Family History Grandmother Asthma Thyroid disorder Mother Asthma Thyroid disorder COPD (chronic obstructive pulmonary disease) Aunt Asthma Heart disease Hypertension Thyroid disorder Emphysema, unspecified Grandfather Asthma Diabetes Hypertension Hyperlipidemia COPD (chronic obstructive pulmonary disease) Surgical History H/O ventral hernia repair History of incisional hernia repair H/O: hysterectomy History of ankle surgery History of cholecystectomy History of bilateral tubal ligation D&C left ankle ligament repair History of tonsillectomy History of 3 sections Social History household members: family housing: house number of children: 3 current occupational status: unemployed pets and animals: Yes Smoking Status: Current every day smoker tobacco type: cigarettes second hand exposure: Yes alcohol intake: never substance use type: does not use caffeine: No what type of physical activity do you participate in: walking frequency: daily seatbelt use: always do you feel safe at home: Yes Review of Systems (Anesthesia) ROS Narrative System reviewed and no additional complaints, except as documented.
--- NOTE | 2024-06-06 12:35 | DCINST_ITS ---
Discharge Instructions Diet Discharge Diet: No restrictions Activity Discharge Activity: May Not Drive, May Shower (Please utilize cast bag covering when showering while seated on shower chair to keep dressings clean, dry, and intact to the left lower extremity) and Use Walker (May use walker, knee scooter, wheelchair to remain nonweightbearing to the left lower extremity) Weight Bearing Status: No weight bearing (Nonweightbearing left lower extremity. Use walker, knee scooter, or wheelchair to remain in compliance with the nonweightbearing status.) Keep extremity elevated above heart level: Left Leg (Elevate left lower extremity at all times of rest for postoperative edema control) Dressing / Incision Call your doctor if you observe: Fever of 101 or Higher, Shortness of breath, Chest pain and Calf discomfort Change Dressing in: do not change dressing Remove Dressing in: leave in place till F/U (Leave dressing clean, dry, and intact to the left lower extremity. Physician will change dressing at first postoperative appointment) Cleanse incision/area with: Do not get Incision Wet and Keep Dressing Clean & Dry (Do not get site wet and keep dressings clean, dry, and intact to the left lower extremity) Follow Up Care Please Follow Up With: Yemi Cisneros DPM When: Patient has first postoperative appointment scheduled with me in office early next week. Test Results: Test results from this visit will be discussed in further detail at your follow- up appointment, if applicable. Discharge Plan Admission Admit Date/Time: 06/07/24 11:39 Attending Provider: Yemi Cisneros Primary Care Provider: Blaine Gage [facility] Discharge Orders/Prescriptions Prescriptions: New oxycodone 5 mg tablet 5 mg PO Q6H PRN (Reason: pain) 2 Days Qty: 8 0RF aspirin 325 mg tablet 325 mg PO DAILY Qty: 20 0RF doxycycline hyclate 100 mg capsule 100 mg PO DAILY Qty: 10 0RF oxycodone-acetaminophen 5-325 mg tablet 1 tab PO Q8H PRN (Reason: pain) 7 Days Qty: 35 0RF No Action escitalopram oxalate 20 mg tablet 20 mg PO DAILY Qty: 90 3RF acetaminophen [Tylenol Extra Strength] 500 mg tablet 1,000 mg PO Q6H PRN (Reason: fever or pain) albuterol sulfate [Ventolin HFA] 90 mcg/actuation HFA aerosol inhaler 1 - 2 puff inhalation Q4H PRN PRN (Reason: Wheezing) Qty: 1 0RF varenicline 1 mg tablet 1 mg PO BID omeprazole 40 mg capsule,delayed release(DR/EC) 40 mg PO DAILY ondansetron 4 mg tablet,disintegrating 4 mg PO BID (DME) miscellaneous medical supply Misc See Rx Instructions .Route Qty: 1 0RF Rx Instructions: As directed oxycodone 5 mg tablet 5 mg PO Q6H PRN (Reason: pain) 3 Days Qty: 15 0RF ibuprofen 800 mg tablet 800 mg PO TID PRN PRN (Reason: pain) levothyroxine 137 mcg tablet 137 mcg PO QHS nystatin 100,000 unit/mL suspension 2 ml PO 4X/DAY Qty: 100 0RF Rx Instructions: Put 1 mL in each side of mouth 4 times a day. Referrals / Follow Up: Eli Merino Cory, [employer] [[facility]] - Disposition Disposition (needs filled in before D/C Order can be placed): Home, Self Care
--- NOTE | 2024-06-06 13:43 | RAD_ITS ---
INDICATION: ORIF LEFT ANKLE EXAMINATION/TECHNIQUE: X-RAY - LEFT XR Ankle Min 3 Views 15 VIEWS COMPARISON: Prior study dated: 05/06/2024 FINDINGS: Fluoroscopic images of the ankle were obtained for open reduction internal fixation of fractured distal fibula with sideplate and screws and fracture of the medial malleolus with sideplate and screws. Images were obtained for documentation. Number of fluoroscopic images: 15 Fluoroscopy time: 188 seconds. Radiation dose: 6.67 mGy. RAD/Ankle min 3 Views IMPRESSION: Intraoperative exam as described above. Electronically Signed: Henry Conn MD at 8:28 EDT ,
[2024-06-06] MEDS: Clindamycin 900 MG/50 ML BAG 75 MG IV (13:44)
--- NOTE | 2024-06-06 19:23 | PCM.POST.ANE ---
Anesthesia: Postop Eval I Current Vital Signs Temperature: 97.5 F Pulse Rate: 116 Blood Pressure: 141/112 Respiratory Rate: 18 Pulse Ox: 91 Oxygen Delivery Method: Nasal Cannula Oxygen Flow Rate (L/min): 2 Assessment Airway patent: Yes Spontaneous unlabored respirations: Yes Mental status: Awake nausea: No Vomiting: No Anesthesia Complication: No Fluid Hydration Crystalloid volume administer (ml): 1,400 Total IV fluid infused: 1,400 Progress Note Anesthesia document: Postop Eval 1 completed: Yes
--- NOTE | 2024-06-06 19:40 | RAD_ITS ---
EXAM: XR LEFT ANKLE COMPLETE, 3 OR MORE VIEWS CLINICAL INDICATION: Postoperative ORIF TECHNIQUE: Frontal, lateral and oblique views of the left ankle. COMPARISON: Intraoperative fluoroscopic spot views 4:30 PM today. Left ankle views May 06, 2024 with acute complex fractures. FINDINGS: BONES/JOINTS: There is a long lateral stabilization plate bridging transverse fracture of the distal left fibula, superior to the expected region of the intraosseous membrane. Stabilization plate bridging the medial malleolus fracture with reduction of previously laterally displaced medial malleolus fracture fragment. There is mild widening the lateral joint compartment the lateral joint compartment on the mortise view. No sclerotic or destructive changes observed. SOFT TISSUES: Soft tissue swelling. No radiopaque foreign body. RAD/Ankle min 3 Views IMPRESSION: Postoperative changes. Electronically Signed: Jessica Medellin MD at 21:25 EDT ,
--- NOTE | 2024-06-06 19:48 | PCM.HP.STD ---
HPI - General General Date of Admission: 06/06/24 Date of Service: 06/06/24 Chief Complaint: Post-op ORIF Left Ankle HPI Narrative NEGRITO BUSTAMANTE, is a 39 F who presents to [facility] for outpatient ORIF of the left ankle on 06/06/2024. Following successful ORIF fixation of the left ankle I discussed with family postoperative care. During discussion family informs me that she arrived by provider transported in the service is done running for the night and thus she would not have a ride home until tomorrow morning. Patient's family also fears inability to control postoperative pain and does not want to take patient home. Thus patient will be admitted for overnight care following ORIF and pain management. [facility] Medical History Ankle fracture Left hip pain Right hip pain Nodular goiter Arthritis Migraine headache History of pain when walking History of edema Shortness of breath on exertion Gastric reflux CPAP (continuous positive airway pressure) dependence Hypothyroidism Thyromegaly COVID-19 Wears glasses Edentulous History of brain disorder Herniated disc Smoker Chronic cough ZANA (obstructive sleep apnea) Obesity Chronic low back pain Kidney stones COPD (chronic obstructive pulmonary disease) Anemia Hydocephalus Panic attacks Bipolar depression manic phase Anxiety Home Medications ?Medication ?Instructions ?Recorded ?Last Taken ?Type escitalopram oxalate 20 mg tablet 20 mg PO DAILY DEPRESSION #90 tabs 12/21/22 06/06/24 07:30 Rx albuterol sulfate 90 mcg/actuation 1 - 2 puff inhalation Q4H PRN PRN 04/07/23 Unknown Rx aerosol inhaler (Ventolin HFA) Wheezing ##1 omeprazole 40 mg capsule,delayed 40 mg PO DAILY 10/25/23 06/06/24 07:30 History release ondansetron 4 mg disintegrating 4 mg PO BID WITH USE OF CHANTIX 10/25/23 06/06/24 07:30 History tablet varenicline 1 mg tablet 1 mg PO BID 10/25/23 03/08/24 History acetaminophen 500 mg tablet 1,000 mg PO Q6H PRN fever or pain 11/15/23 Unknown History (Tylenol Extra Strength) nystatin 100,000 unit/mL oral 2 ml PO 4X/DAY #100 mL 03/17/24 Unknown Rx suspension miscellaneous medical supply #1 ea 05/06/24 Unknown Rx oxycodone 5 mg tablet 5 mg PO Q6H PRN pain 3 days #15 05/06/24 Unknown Rx tabs oxycodone 5 mg tablet 5 mg PO Q6H PRN pain 2 days #8 tabs 05/28/24 Unknown Rx ibuprofen 800 mg tablet 800 mg PO TID PRN PRN pain 05/30/24 Unknown History levothyroxine 137 mcg tablet 137 mcg PO QHS 05/30/24 Unknown History aspirin 325 mg tablet 325 mg PO DAILY #20 tabs 06/06/24 Unknown Rx doxycycline hyclate 100 mg capsule 100 mg PO DAILY #10 caps 06/06/24 Unknown Rx oxycodone-acetaminophen 5 mg-325 1 tab PO Q8H PRN pain 7 days #35 06/06/24 Unknown Rx mg tablet tabs Allergy/AdvReac Type Severity Reaction Status Date / Time ceftriaxone sodium (From Allergy Hives Verified 05/30/24 13:04 Rocephin) tramadol Allergy Hives Verified 05/30/24 13:04 bupropion HCl (From AdvReac MAKES Verified 05/30/24 13:04 Wellbutrin) ANXIETY WORSE Family History Grandmother Asthma Thyroid disorder Mother Asthma Thyroid disorder COPD (chronic obstructive pulmonary disease) Aunt Asthma Heart disease Hypertension Thyroid disorder Emphysema, unspecified Grandfather Asthma Diabetes Hypertension Hyperlipidemia COPD (chronic obstructive pulmonary disease) Surgical History H/O ventral hernia repair History of incisional hernia repair H/O: hysterectomy History of ankle surgery History of cholecystectomy History of bilateral tubal ligation D&C left ankle ligament repair History of tonsillectomy History of 3 sections Social History household members: family housing: house number of children: 3 current occupational status: unemployed pets and animals: Yes Smoking Status: Current every day smoker tobacco type: cigarettes second hand exposure: Yes alcohol intake: never substance use type: does not use caffeine: No what type of physical activity do you participate in: walking frequency: daily seatbelt use: always do you feel safe at home: Yes ROS Constitutional Constitutional: Denies body ache(s), chills or fever(s) Eyes Eyes: Denies diplopia or loss of vision ENT HEENT: Denies dysphagia, rhinorrhea or sore throat Cardiovascular Cardiovascular: Denies chest pain, claudication or palpitations Respiratory/Chest Respiratory/Chest: Denies dyspnea, shortness of breath at rest or wheezing Gastrointestinal Gastrointestinal: Denies abdominal pain, constipation, diarrhea, nausea or vomiting Genitourinary Genitourinary: Denies dysuria, hematuria or urinary urgency Musculoskeletal Musculoskeletal: Denies joint pain, joint stiffness or joint swelling Integumentary Integumentary: Denies jaundice, lesions, pruritus or rash Neurologic Neurologic: Denies dizziness, numbness or seizures Psychiatric Psychiatric: Reports anxiety and depression Endocrine Endocrinology: Denies polydipsia, polyphagia or polyuria Hematologic/Lymphatic Hematologic/Lymphatic: Denies easy bleeding or easy bruising Allergic/Immunologic Allergic/Immunologic: Denies wheezing Vital Signs Vital Signs Vital Signs: 06/06/24 11:05 06/06/24 11:05 06/06/24 11:46 Temperature 96.9 F L 96.9 F L Temperature Source Temporal Pulse Rate 83 83 Respiratory Rate 16 16 Respiratory Pattern Normal Blood Pressure 116/99 H 116/99 H Blood Pressure Mean 104 Blood Pressure Source Monitor Blood Pressure Position Semi-Fowlers Blood Pressure Location Left Arm Baseline BP Pulse Ox 97 97 Oxygen Delivery Method Room Air Oxygen Flow Rate (L/min) 06/06/24 19:22 06/06/24 19:25 06/06/24 19:25 Temperature 97.5 F L 97.5 F L Temperature Source Temporal Pulse Rate 113 H 116 H 116 H Respiratory Rate 20 H 18 18 Respiratory Pattern Normal Blood Pressure 141/112 H 136/69 H 141/112 H Blood Pressure Mean 121 91 Blood Pressure Source Monitor Monitor Blood Pressure Position Semi-Fowlers Semi-Fowlers Blood Pressure Location Left Arm Baseline BP 116/99 116/99 Pulse Ox 86 91 91 Oxygen Delivery Method Room Air Nasal Cannula Nasal Cannula Oxygen Flow Rate (L/min) 2 2 06/06/24 19:30 06/06/24 19:35 06/06/24 19:45 Temperature Temperature Source Pulse Rate 114 H 118 H 115 H Respiratory Rate 18 18 18 Respiratory Pattern Blood Pressure 122/93 H 120/64 114/73 Blood Pressure Mean 102 82 86 Blood Pressure Source Monitor Monitor Monitor Blood Pressure Position Semi-Fowlers Semi-Fowlers Semi-Fowlers Blood Pressure Location Left Arm Left Arm Left Arm Baseline BP 116/99 116/99 116/99 Pulse Ox 92 93 95 Oxygen Delivery Method Nasal Cannula Nasal Cannula Nasal Cannula Oxygen Flow Rate (L/min) 4 4 4 Weight Weight: 170.551 kg Body Mass Index (BMI) 52.4 Physical Exam Const alert, oriented x3 and no apparent distress General Appearance: cooperative HEENT normocephalic Eyes General Eye: normal appearance of both eyes Neck General: normal visual inspection Lymph Lymphatic: no lymphadenopathy noted and no lymphedema noted Resp normal respiratory effort Cardio regular rate and regular rhythm Extremity normal capillary refill, no joint enlargement, no calf tenderness and no pedal edema Extremity Narrative: Left lower extremity: Vascular: DP and PT pulses palpable. CFT is brisk to all digits. Normal temperature gradient. Hair growth is present to digits. Neurologic: Gross sensation intact. Epicritic sensation intact. No focal deficits noted. Musculoskeletal: Muscle strength and range of motion deferred secondary to ORIF of the left ankle. Dermatologic: Incision medial ankle with sutures intact. Incision lateral ankle with sutures intact. No signs of infection. Surgical dressings intact with sugar-tong splint to the left lower extremity. Skin no rashes or lesions noted, skin turgor normal and no jaundice Neuro moves all extremities Assessment & Plan Assessment/Plan (1) Displaced trimalleolar fracture of left lower leg, initial encounter for closed fracture: (2) Syndesmotic disruption of left ankle: (3) Pain in left lower leg: (4) Other acute postprocedural pain: PLAN: Plan Patient seen and evaluated Patient underwent ORIF of left bimalleolar ankle fracture with syndesmotic fixation. DOS 06/06/2024. Incision medial ankle with sutures intact. Incision lateral ankle with sutures intact. No signs of infection. Surgical dressings intact with sugar-tong splint to the left lower extremity. Postoperative splint the lower extremity to remain intact. She is to remain nonweightbearing to the left lower extremity with the assistance of walker or wheelchair She is to elevate left lower extremity at all times of rest for postoperative edema control May apply ice behind left knee to aid in postoperative pain control Pain management: 4 mg morphine every 4 hours for postoperative pain. May also have 5 mg Oxy IR for pain. May also alternate Tylenol 600 mg every 6 hours. Will stay overnight for postoperative pain control and will arrange transport for ride home tomorrow. Jr. Aman Bergeron.P.M. [facility] [phone]
[2024-06-06] MEDS: Ketorolac 30 MG/ML Syringe IV (19:57)
--- NOTE | 2024-06-06 20:29 | OP.PCM_ITS ---
Problems Associated Problem List Diagnoses (1) Displaced trimalleolar fracture of left lower leg, initial encounter for closed fracture: (2) Syndesmotic disruption of left ankle: (3) Pain in left lower leg: Operative Report (Standard) Operative Information Surgery/Procedure Performed: 1. ORIF Left Bimalleolar Ankle Fracture 2. Repair of Syndesmosis Left Ankle 3. Application of AO splint Left Lower Extremity Surgeon: Yemi Cisneros Date of Procedure: 06/06/24 Procedure Start Time: 14:34 Procedure Stop Time: 18:52 Pre-Operative Diagnosis: 1. Displaced Trimalleolar Ankle Fracture Left Leg 2. Syndesmotic Ligament Disruption Left Leg Post-Operative Diagnosis: 1. Displaced Trimalleolar Ankle Fracture Left Leg 2. Syndesmotic Ligament Disruption Left Leg Select all DRAINS/GRAFTS/IMPLANTS that apply: None Type of Anesthesia: General/Regional (Popliteal block performed by anesthesia team Left Lower Extremity) Estimated Blood Loss: < 50mL Specimen collected: No Description of surgery: HPI/Indication: This is a 39-year-old female who was ambulating down stairs in the rain on 05/06/2024 missing the last step and fell fracturing the left ankle. She did go to [facility] ED and was seen and reduced and splinted in sugar-tong splint. Radiographs at that time demonstrated displaced bimalleolar ankle fracture with likely syndesmotic disruption. She presented to office on 05/09/2024 for discussion of surgical fixation. Patient was unable to get medical clearance until a week later with her PCP but was cleared for surgery following their appointment. She did return to sign surgical paperwork and consent for the procedure. Discussed the surgical fixation/ORIF of displaced trimalleolar ankle fracture of the left lower extremity with repair of the ruptured syndesmosis. I reviewed the condition and the treatment options with the patient. Patient is noted to have an unstable ankle fracture thus necessitating surgical correction. Patient would like to proceed forward with the intervention. Procedure was discussed in great detail. Discussed all possible benefits versus risks and potential complications in detail. Advised the patient the risks include but are not limited to the following: Pain, continued pain, complex regional pain syndrome, deformity, continued deformity, recurrence, overcorrection, under correction, numbness/neuritis, swelling, scar ring, poor cosmetic result, bleeding, hardware failure, symptomatic hardware, the need for further surgery/procedures, fracture, nonunion, delayed union, nonhealing/delayed healing, dehiscence, infection, blood clots, allergic reaction, transfer lesion, postoperative arthritis, weakness, shoe gear problems, inability to walk, inability to wear shoe gear, stroke, heart attack, addiction to pain medication, loss of function, loss of limb, loss of life. Patient expressed understanding with and was able to repeat these back. Typical postoperative course was reviewed with the patient the patient expressed understanding and agreement. Consent forms were reviewed and signed at patient's free will. No promises were made. No guarantees were given. Patient was informed that she should stop smoking to optimize healing postsurgery. There was delay in surgical time for procedure secondary to scheduling. All diagnostic data was reviewed prior to entering the OR. Operative limb was signed prior to entering the OR. Staff reports taking her back to the OR the patient did strongly smell of cigarette smoke. Patient was scheduled to undergo ORIF of the left ankle with syndesmotic repair at [facility] on 06/06/2024. Procedure: Prior to entering the OR patient did undergo popliteal block by anesthesia team in PACU. Under mild sedation patient was brought into the operating room placed on the table in supine position. Patient was secured to table with safety belt. Right leg was secured with taping/strapping. Following induction of general anesthetic with airway placement secured a blanket bump was placed under the left hip. Left lower extremity was elevated via a blanket bump. A well-padded pneumatic thigh tourniquet was then placed about the patient's left thigh and secured via Coban wrapping. The left lower extremity was then scrubbed, prepped, and draped in the usual aseptic manner. Next, prominent landmarks were marked utilizing guidance of fluoroscopy including level of the fracture of the medial malleolus and distal fibula. Esmarch bandage was utilized to exsanguinate the left foot and the pneumatic thigh tourniquet was inflated to 300 mmHg. At this time attention was directed to the lateral ankle where a linear incision was made utilizing a #15 blade overlying the distal aspect of the fibula and lateral malleolus. Incision was deepened via sharp and blunt dissection. Care was taken to identify and retract all vital neurovascular structures. An incision was made through the periosteum and the fracture site utilizing #15 blade. At this time the fracture is noted to be mildly displaced with some external rotation of the distal fibula and abnormal healing secondary to age of fracture. An osteotome was utilized to dissect the callus formation and to free the fracture fragments to mobilize them for reduction. Attempted reduction was made utilizing [id number] reduction clamp, lobster-claw, and push pull technique however difficulty with reduction was noted secondary to scar tissue and soft tissue contracture secondary to fracture age. At this time decision was made to resect portions of fracture to allow for more adequate reduction to the fracture pattern utilizing sagittal saw. Following remodeling of the fracture site a pointed reduction clamp was utilized to reduce the fracture with adequate reduction in anatomic alignment noted. Next, a 10 hole locking straight plate was applied to the lateral aspect of the fibula and temporarily pinned utilizing olive wires. Placement of the plate was visualized under g uidance of fluoroscopic imaging and deemed sufficient placement. Following AO principles proximal to the fracture site a 3.5 x 14 mm cortical screw was placed. Next, proximal to this the next 2 holes were filled with a 3.5 x 14 mm locking screw respectively. Next, distal to the fracture site the next 2 holes were filled with 3.5 x 16 mm locking screws respectively. The most distal hole on the plate was filled with a 3.5 x 14 mm locking screw. At this time the pneumatic ankle tourniquet was deflated and a prompt hyperemic response was noted to the digits of the left foot. Following a breathing time an Esmarch bandage was utilized to exsanguinate the foot and the pneumatic ankle tourniquet was inflated to 300 mmHg. At this time attention was directed to the medial aspect of the left ankle overlying the medial malleolus where a linear incision was made utilizing a #15 blade. Incision was deepened via sharp and blunt dissection and care was taken to identify and retract all vital neurovascular structures. Incision was deepened to the level of the periosteal tissue and the fracture fragment was identified under guidance of fluoroscopy and was reduced via pointed reduction clamp and confirmed reduction in multiple fluoroscopic views. Next, an Arthrex 3-hole medial hook plate was applied to the medial malleolus and following AO principles the center hole proximally was filled with a 4.0 x 24 mm cancellous screw. The hole proximal to this was also filled with a 4.0 x 24 mm cancellous screw. The hole proximal to the level of fracture was filled with a 3.5 x 24 mm locking screw in the hole below the fracture level was filled with a 3.5 x 12 mm locking screw. At this time the syndesmosis was tested for instability via hook test and there was noted instability under fuentes dance of live fluoroscopy. Next, following AO principle attention was directed to the lateral aspect of the ankle where through the 2 remaining distal holes in the 10 hole plate, 2 syndesmotic tight ropes were deployed for syndesmotic repair. Following repair of the syndesmosis the site underwent retesting for instability via hook testing in which no instability was noted. Final fluoroscopic imaging was obtained in multiple views with fixation deemed adequate. Surgical incision sites were then flushed with copious amounts of normal sterile saline. Next, the fibular fracture portion was augmented via Arthrocell bone graft for healing at the remodeled fibular fracture site as patient is a habitual smoker. Next, medial incision site deep layer was closed utilizing 2-0 Vicryl. Subcutaneous tissues closed utilizing 4-0 Monocryl. Skin was then reapproximated utilizing 2-0 Prolene in simple interrupted fashion. Next, lateral incision deep layer was closed utilizing 2-0 Vicryl. Subcutaneous tissues closed utilizing 4-0 Monocryl. At this time the pneumatic thigh tourniquet was deflated and a prompt hyperemic response was noted to the digits of the left foot. Skin was then reapproximated utilizing 2-0 Prolene in simple interrupted fashion. Incision sites were then dressed with Betadine soaked Adaptic, 4 x 4 gauze, ABD, Kerlix x 2, Webril cast padding, 4 inch Rodney wrap and 6 inch Rodney wrap. A well molded AO sugar-tong splint was applied and anchored with a 4 inch and 6 inch Rodney wrap and modified Lara compression fashion. The patient tolerated the procedure and anesthesia well was transported from to PACU with vital signs stable vascular status intact to the left foot. During postoperative discussion with family they have informed me that they utilized a hospital transport service to get the patient to surgery today and the transport service is no longer operational and will begin rides again in the a.m. Patient's family states that they will be unable to take her home tonight in the truck that they currently have and have requested patient to be admitted overnight for pain management until patient can arrange for a ride tomorrow. Patient was admitted for postoperative pain control until they can arrange transport home tomorrow. She will continue to elevate left lower extremity at all times of rest for postoperative edema control. She will keep the splint intact and dressings clean, dry, and intact to the left lower extremity. She is to remain nonweightbearing to the left lower extremity with the assistance of a walker or wheelchair. Following her discharge she will continue to follow in office with me for continued postoperative care. 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
[2024-06-06] MEDS: oxyCODONE 5 MG Tablet PO (21:48)
[2024-06-06] MEDS: Acetaminophen 325 MG Tablet 650 MG PO (22:07)
[2024-06-07] VITALS (11 sets, daily range): BP systolic 108–139; BP diastolic 67–85; PULSE 98–117; RESP 16–18; TEMP 36.3–36.8; O2SAT 91–99
--- NOTE | 2024-06-07 01:09 | PCM.POSTANE2 ---
Anesthesia Postop Eval I Sum Postop Eval Completion status Anesthesia document: Postop Eval 1 completed: Yes Anesthesia Postop Eval I Summary Anesthesia Postop Eval I Summary: Anesthesia Postop Eval I: Assessment Summary Airway patent Yes 06/06/24 19:25 Spontaneous unlabored Yes 06/06/24 19:25 respirations Mental status Awake 06/06/24 19:25 nausea No 06/06/24 19:25 Vomiting No 06/06/24 19:25 Anesthesia Postop Eval I: Fluid Summary Crystalloid volume administer 1,400 06/06/24 19:25 (ml) Colloids volume administered ( ml) Blood Product volume administered (ml) Total IV fluid infused 1,400 06/06/24 19:25 Anesthesia Postop Eval I: Summary Notes Anesthesia Complication No 06/06/24 19:25 Anesthesia Complication Comment: Post-operative progress note Anesthesia: Postop Eval II Evaluation Mental status: Awake and Calm Pain Level: 3 nausea: No Vomiting: No Complications Anesthesia Complication: No
[2024-06-07] MEDS: oxyCODONE 5 MG Tablet PO ×6 (02:37→23:45)
[2024-06-07] MEDS: Acetaminophen 325 MG Tablet 650 MG PO ×2 (06:41→23:44)
--- NOTE | 2024-06-07 09:55 | CASEMGMT ---
WISAM HOROWITZ Assessment: Face to Face with pt for initial transition planning/care coordination assessment. WISAM HOROWITZ introduced self and role at [facility], pt voices understanding and consents to assessment. Pt is A&O x4 and answers all questions appropriately at this time. Pt lying in bed in no distress. Care providers, pharmacy, and demographics verified/updated. Strata: 2 Admitting Dx: Post Op ORIF L Ankle PCP: Mer[facility] Specialists: Eusebio Cisneros. Preferred Pharmacy: [facility] Insurance: [employer] Dual Prescription Benefit: yes LNOK: Living Arrangements: Pt lives with , kids, sister and grandma in a mobile home with a ramp to enter. ADLs: Pt states I at baseline. Family provides support when needed. Transportation: Pt son provides transportation. Pt states will need to call [id number] at time of DC. DME: Wheelchair, hospital bed, shower bench, bed boucher. Pt states had a CPAP several years ago but no longer uses it. Reports she lost it in [place] about 6 years ago. HHC/SNF: Denies Hx of. Pt denies wanting HHC services at time of DC. Pt states no concerns with going home at time of dc. Pt states no further concerns/needs. CM to follow. Advised pt to ask CM if any further question/concerns/needs arise, voices understanding. Pt Goal: Home Plan: Home, follow plan of care. Radha JOEL CM
[2024-06-07] MEDS: Morphine 4 MG/ML Syringe IV ×3 (11:57→21:18)
[2024-06-07] MEDS: 0.9% Saline Lock 10 ML Syringe IV ×4 (11:58→21:18)
[2024-06-07] MEDS: Ondansetron 4 MG/2 ML Vial IV ×2 (12:03→21:18)
--- NOTE | 2024-06-07 15:08 | CASEMGMT ---
RN CM with RN into see pt, pt in room. Pt states refusing to go home today due to pain. Pt states will be able to go home at time of DC, states family able to support at home. Refusing HHC. Discussed O2 needs at time of DC, pt states she uses [facility] for DME and would prefer [facility] for O2 if needed at time of DC.
--- NOTE | 2024-06-07 15:09 | CASEMGMT ---
Met with patient to complete JOHNSON form. JOHNSON form explained to patient who voiced understanding and signed form. Original form placed in pt?s chart and copy provided to patient. Kaye Aponte, Discharge Planning Asst
[2024-06-07] MEDS: Aspirin 325 MG Tablet PO (18:02)
--- NOTE | 2024-06-07 19:30 | PN_ITS ---
Subjective Subjective Patient seen this evening and is doing well postoperatively. Does states she has some pain following the popliteal block wearing off. Has been able to void without difficulty. Is remaining nonweightbearing to the left lower extremity. Surgical dressings and splint remain intact. Denies further complaints Objective Data Objective Data Vital Signs: Vital Signs Temp Pulse Resp BP Pulse Ox O2 Del Method O2 Flow Rate 97.8 F 109 H 18 126/70 H 95 Room Air 2 06/07/24 15:11 06/07/24 15:11 06/07/24 15:11 06/07/24 15:11 06/07/24 15:11 06/07/24 15:11 06/07/24 09:13 Oxygen Flow Rate (L/min) 2 Oxygen Delivery Method Room Air Weight: 178 kg Body Mass Index (BMI) 54.9 Intake & Output: Intake and Output for Last 24 Hours 06/05/24 06/06/24 06/07/24 23:59 23:59 23:59 Intake Total 1250 / 1250 1738.5 / 1738.5 Output Total 500 / 500 1900 / 1900 Balance 750 / 750 -161.5 / -161.5 Radiography Diagnostic Testing: Radiology Impression Ankle X-Ray 06/06/24 13:43 IMPRESSION: Intraoperative exam as described above. Electronically Signed: Henry Conn MD at 8:28 EDT , Ankle X-Ray 06/06/24 19:40 IMPRESSION: Postoperative changes. Electronically Signed: Jessica Medellin MD at 21:25 EDT , Physical Exam Const alert, oriented x3 and no apparent distress General Appearance: cooperative HEENT normocephalic Eyes General Eye: normal appearance of both eyes Neck General: normal visual inspection Lymph Lymphatic: no lymphadenopathy noted and no lymphedema noted Resp normal respiratory effort Cardio regular rate and regular rhythm Extremity normal capillary refill, no joint enlargement, no calf tenderness and no pedal edema Extremity Narrative: Left lower extremity: Vascular: DP and PT pulses palpable. CFT is brisk to all digits. Normal temperature gradient. Hair growth is present to digits. Neurologic: Gross sensation intact. Epicritic sensation intact. No focal deficits noted. Musculoskeletal: Muscle strength and range of motion deferred secondary to ORIF of the left ankle. Dermatologic: Incision medial ankle with sutures intact. Incision lateral ankle with sutures intact. No signs of infection. Surgical dressings intact with sugar-tong splint to the left lower extremity. Skin no rashes or lesions noted, skin turgor normal and no jaundice Neuro moves all extremities Assessment & Plan Assessment/Plan (1) Displaced trimalleolar fracture of left lower leg, initial encounter for closed fracture: (2) Syndesmotic disruption of left ankle: (3) Pain in left lower leg: PLAN: Plan Patient seen and evaluated Patient underwent ORIF of left bimalleolar ankle fracture with syndesmotic fixation. DOS 06/06/2024. POD #1 Incision medial ankle with sutures intact. Incision lateral ankle with sutures intact. No signs of infection. Surgical dressings intact with sugar-tong splint to the left lower extremity. Postoperative splint the lower extremity to remain intact. She is to remain nonweightbearing to the left lower extremity with the assistance of walker or wheelchair She is to elevate left lower extremity at all times of rest for postoperative edema control May apply ice behind left knee to aid in postoperative pain control Pain management: 4 mg morphine every 4 hours for postoperative pain. May also have 5 mg Oxy IR for pain. May also alternate Tylenol 600 mg every 6 hours. May give Zofran 4 mg as needed nausea. Patient did have continued pain following the popliteal block wearing off and will likely stay an additional night for continued pain management. Will stay for postoperative pain control and will arrange transport for ride home tomorrow. Yemi Cisneros Jr. D.P.M. [facility] [phone]
[2024-06-08 04:37] VITALS: BP 112/65; PULSE 93; RESP 16; TEMP 36.8; O2SAT 100
[2024-06-08] MEDS: oxyCODONE 5 MG Tablet PO ×6 (04:38→23:58)
[2024-06-08 08:53] VITALS: BP 110/70; PULSE 96; RESP 16; TEMP 36.6; O2SAT 98
[2024-06-08 10:11] VITALS: BP 110/70; PULSE 98; RESP 16; TEMP 36.6; O2SAT 98
[2024-06-08 10:31] VITALS: BP 127/74; PULSE 103; RESP 18; O2SAT 99
[2024-06-08] MEDS: Morphine 4 MG/ML Syringe IV (10:33)
[2024-06-08] MEDS: 0.9% Saline Lock 10 ML Syringe IV (10:34)
[2024-06-08] MEDS: Ondansetron 4 MG/2 ML Vial IV (10:38)
[2024-06-08 13:32] VITALS: BP 118/74; PULSE 92; RESP 16; TEMP 36.8; O2SAT 94
--- NOTE | 2024-06-08 13:32 | DS.PCM_ITS ---
Providers Date of Admission: 06/07/24 Date of Discharge: 06/08/24 Primary Care Physician: PAN Arora Reason For Visit: POST OP ORIF LEFT ANKLE Diagnosis Discharge Diagnosis (1) Displaced trimalleolar fracture of left lower leg, initial encounter for closed fracture: Status: Acute Code(s): S82.852A - Displaced trimalleolar fracture of left lower leg, initial encounter for closed fracture (2) Syndesmotic disruption of left ankle: Status: Acute Code(s): S93.432A - Sprain of tibiofibular ligament of left ankle, initial encounter (3) Pain in left lower leg: Status: Acute Code(s): M79.662 - Pain in left lower leg Plan Patient seen and evaluated Patient underwent ORIF of left bimalleolar ankle fracture with syndesmotic fixa tion. DOS 06/06/2024. POD #1 Incision medial ankle with sutures intact. Incision lateral ankle with sutures intact. No signs of infection. Surgical dressings intact with sugar-tong splint to the left lower extremity. Postoperative splint the lower extremity to remain intact. She is to remain nonweightbearing to the left lower extremity with the assistance of walker or wheelchair She is to elevate left lower extremity at all times of rest for postoperative edema control May apply ice behind left knee to aid in postoperative pain control Pain management: 4 mg morphine every 4 hours for postoperative pain. May also have 5 mg Oxy IR for pain. May also alternate Tylenol 600 mg every 6 hours. May give Zofran 4 mg as needed nausea. Patient did have continued pain following the popliteal block wearing off and will likely stay an additional night for continued pain management. Will stay for postoperative pain control and will arrange transport for ride home tomorrow. Yemi Cisneros Jr. D.P.M. [facility] [phone] Medications at Discharge Home Medications escitalopram oxalate 20 mg tablet 20 mg PO DAILY DEPRESSION #90 tabs 12/21/22 albuterol sulfate 90 mcg/actuation aerosol inhaler (Ventolin HFA) 1 - 2 puff inhalation Q4H PRN PRN Wheezing ##1 04/07/23 omeprazole 40 mg capsule,delayed release 40 mg PO DAILY 10/25/23 ondansetron 4 mg disintegrating tablet 4 mg PO BID WITH USE OF CHANTIX 10/25/23 varenicline 1 mg tablet 1 mg PO BID 10/25/23 acetaminophen 500 mg tablet (Tylenol Extra Strength) 1,000 mg PO Q6H PRN fever or pain 11/15/23 nystatin 100,000 unit/mL oral suspension 2 ml PO 4X/DAY #100 mL 03/17/24 miscellaneous medical supply #1 ea 05/06/24 oxycodone 5 mg tablet 5 mg PO Q6H PRN pain 3 days #15 tabs 05/06/24 oxycodone 5 mg tablet 5 mg PO Q6H PRN pain 2 days #8 tabs 05/28/24 ibuprofen 800 mg tablet 800 mg PO TID PRN PRN pain 05/30/24 levothyroxine 137 mcg tablet 137 mcg PO QHS 05/30/24 aspirin 325 mg tablet 325 mg PO DAILY #20 tabs 06/06/24 doxycycline hyclate 100 mg capsule 100 mg PO DAILY #10 caps 06/06/24 oxycodone-acetaminophen 5 mg-325 mg tablet 1 tab PO Q8H PRN pain 7 days #35 tabs 06/06/24 Hospital Course Operations - (ORIF Left Trimalleolar Ankle Fracture 06/06/24) Summary of Care Provided Hospital Course: This is a 39-year-old female suffered left ankle fracture on 05/06/2024 while going down the stairs slipping on wet steps leading to fall and fracture of her left ankle. Patient did go to [facility] ED and underwent reduction and radiographs demonstrating a displaced trimalleolar fracture of the left ankle. She did follow-up with me in office on 05/09/2024 for discussion of surgery. Did undergo successful ORIF for a bimalleolar left ankle fracture with syndesmotic repair on 06/06/2024. Following surgical intervention family informs me she was transported by provider transport and thus did not have a ride home and family did not feel safe taking her home themselves. She was thus admitted for observation until transport can be arranged in addition to providing pain control. AO splint remains intact in addition to surgical dressings to the left lower extremity. She remains nonweightbearing to the left lower extremity and has worked with physical therapy on maintaining nonweightbearing status. Patient to be discharged and will continue to follow in outpatient setting in office for postoperative care s/p ORIF of the left ankle with appointment this , 06/13/2024. Physical Exam Const alert, oriented x3 and no apparent distress General Appearance: cooperative HEENT normocephalic Eyes General Eye: normal appearance of both eyes Neck General: normal visual inspection Lymph Lymphatic: no lymphadenopathy noted and no lymphedema noted Resp normal respiratory effort Cardio regular rate and regular rhythm Extremity normal capillary refill, no joint enlargement, no calf tenderness and no pedal edema Extremity Narrative: Left lower extremity: Vascular: DP and PT pulses palpable. CFT is brisk to all digits. Normal temperature gradient. Hair growth is present to digits. Neurologic: Gross sensation intact. Epicritic sensation intact. No focal deficits noted. Musculoskeletal: Muscle strength and range of motion deferred secondary to ORIF of the left ankle. Dermatologic: Incision medial ankle with sutures intact. Incision lateral ankle with sutures intact. No signs of infection. Surgical dressings intact with AO splint/sugar-tong splint to the left lower extremity. Skin no rashes or lesions noted, skin turgor normal and no jaundice Neuro moves all extremities Weight / BMI Weight Weight: 178 kg Body Mass Index (BMI) 54.9 D/C Instructions Discharge Diet: No restrictions Discharge Activity: May Not Drive, May Shower (-Cast bag covering to keep left lower extremity clean, dry, and intact during showering. Must be seated on shower chair while showering to remain nonweightbearing to left lower extremity.) and Use Walker (May utilize walker/wheelchair to remain nonweightbearing to the left lower extremity) Weight Bearing Status: No weight bearing (Nonweightbearing left lower extremity. Use walker, knee scooter, or wheelchair to remain in compliance with the nonweightbearing status.) Keep extremity elevated above heart level: Left Leg (Elevate left lower extremi ty at all times of rest for postoperative edema control) Call your doctor if you observe: Fever of 101 or Higher, Shortness of breath, Chest pain and Calf discomfort Change Dressing in: do not change dressing Remove Dressing in: leave in place till F/U (Do not change dressing. Leave dressing intact and physician will change dressing at first postoperative appointment.) Cleanse incision/area with: Do not get Incision Wet and Keep Dressing Clean & Dry (Do not get site wet and keep dressings clean, dry, and intact to the left lower extremity) Please Follow Up With: Yemi Cisneros DPM When: Patient has first postoperative appointment scheduled with me in office , 06/13/2024. Meaningful Use Info Meaningful Use Meaningful Use Diagnoses (Choose all that apply): None applicable Ischemic Stroke Statin Dosing Therapy Reference: STATIN DOSE THERAPY REFERENCE: * Patients > 75 years receive moderate or high dose statin therapy. * Patients 75 years or YOUNGER should receive HIGH intensity statin dose unless contraindicated. You will be required to document reason for non-treatment if statin daily dose does not meet guidelines. HIGH DOSE STATIN THERAPY DAILY Atorvastatin > than or = to 40 mg Rosuvastatin > than or = to 20 mg Amlodipine + Atorvastatin > than or = to 2.5/40 mg Ezetimibe + Simvastatin 10/80 mg Simvastatin 80mg Discharge Plan Admission Admit Date/Time: 06/07/24 11:39 Attending Provider: Yemi Cisneros Primary Care Provider: Blaine Gage Cory Discharge Orders/Prescriptions Prescriptions: New oxycodone 5 mg tablet 5 mg PO Q6H PRN (Reason: pain) 2 Days Qty: 8 0RF aspirin 325 mg tablet 325 mg PO DAILY Qty: 20 0RF doxycycline hyclate 100 mg capsule 100 mg PO DAILY Qty: 10 0RF oxycodone-acetaminophen 5-325 mg tablet 1 tab PO Q8H PRN (Reason: pain) 7 Days Qty: 35 0RF No Action escitalopram oxalate 20 mg tablet 20 mg PO DAILY Qty: 90 3RF acetaminophen [Tylenol Extra Strength] 500 mg tablet 1,000 mg PO Q6H PRN (Reason: fever or pain) albuterol sulfate [Ventolin HFA] 90 mcg/actuation HFA aerosol inhaler 1 - 2 puff inhalation Q4H PRN PRN (Reason: Wheezing) Qty: 1 0RF varenicline 1 mg tablet 1 mg PO BID omeprazole 40 mg capsule,delayed release(DR/EC) 40 mg PO DAILY ondansetron 4 mg tablet,disintegrating 4 mg PO BID (DME) miscellaneous medical supply Misc See Rx Instructions .Route Qty: 1 0RF Rx Instructions: As directed oxycodone 5 mg tablet 5 mg PO Q6H PRN (Reason: pain) 3 Days Qty: 15 0RF ibuprofen 800 mg tablet 800 mg PO TID PRN PRN (Reason: pain) levothyroxine 137 mcg tablet 137 mcg PO QHS nystatin 100,000 unit/mL suspension 2 ml PO 4X/DAY Qty: 100 0RF Rx Instructions: Put 1 mL in each side of mouth 4 times a day. Referrals / Follow Up: Eli Merino, MEASUREMENT DEPARTMENT CHIEF CLERK-C [[facility]] - Disposition Disposition (needs filled in before D/C Order can be placed): Home, Self Care
--- NOTE | 2024-06-08 14:04 | CASEMGMT ---
Social Work RN called SW inquiring how pt would get home. SW reviewed CM notes, indicating pt is to call Provide a Ride. If this does not work we can set up an ambulance, let RN know to inform pt this may not be covered by insurance however. LOR King checked w/RN, Provide a Ride not available, pt is trying another service for transport home. If this service is not available an ambulance form was provided to the floor if this is the only way we can get pt home. SHAW Vasquez
[2024-06-08] MEDS: Aspirin 325 MG Tablet PO (16:43)
[2024-06-08] MEDS: Acetaminophen 325 MG Tablet 650 MG PO ×2 (16:45→23:58)
[2024-06-08 19:40] VITALS: BP 111/71; PULSE 98; RESP 18; TEMP 36.8; O2SAT 93
[2024-06-08] MEDS: Ibuprofen 400 MG Tablet 800 MG PO (22:35)
== END 2024-06-09 | disposition home or self-care (01) ==
LOC: MS3 06-07 02:05 → SDC 06-07 02:07 → MS3 06-07 09:33
PROVIDERS: Admitting Provider Student in an Organized Health Care Education/Training Program; PCP Nurse Practitioner Family; Referring Provider Student in an Organized Health Care Education/Training Program; Visit Provider Student in an Organized Health Care Education/Training Program
PROC: (CPT 27822; principal; 2024-06-06 12:40)
DX: S82.852A Displaced trimalleolar fracture of left lower leg, initial encounter for closed fracture (principal); J44.9 Chronic obstructive pulmonary disease, unspecified; G89.18 Other acute postprocedural pain; F17.210 Nicotine dependence, cigarettes, uncomplicated; S93.432A Sprain of tibiofibular ligament of left ankle, initial encounter; W10.9XXA Fall (on) (from) unspecified stairs and steps, initial encounter; Y93.01 Activity, walking, marching and hiking; K21.9 Gastro-esophageal reflux disease without esophagitis; G47.33 Obstructive sleep apnea (adult) (pediatric); Z79.899 Other long term (current) drug therapy; Z79.82 Long term (current) use of aspirin; Z79.890 Hormone replacement therapy; E03.9 Hypothyroidism, unspecified
CPT/HCPCS: 27822; 01480; 27829; 73610; 76000; 96374; 96375; 96376; 97110; 97162; 97166; 97530; 99221; 99406; C1713; A4216; G0378; J2405

== ENCOUNTER 2024-09-11 14:42 | Emergency (ER) | payer MEDICARE, MEDICAID, SELFPAY ==
[2024-09-11 14:42] VITALS: BP 98/70; PULSE 126; RESP 24; TEMP 39.4; O2SAT 91
--- NOTE | 2024-09-11 17:00 | EDS_ITS ---
HPI History of Present Illness Chief Complaint: Fever Informant: patient Narrative Narrative: 39-year-old female presenting to the emergency room for fever and shortness of breath. Patient states that on Monday she became ill. She notes fever cough vomiting. She states she feels dehydrated. She last had liquid Tylenol at 1000 hours today. She states that she went to see her doctor today and they brought me here. She states that she has fast heart rate low blood pressure and is short of breath. She states that she is decided to quit smoking because of this illness. She states she has a history of asthma has an inhaler which she tells me is blue and kent. She denies any diarrhea. She notes her left foot is in a boot orthosis due to fracture 4 months ago and surgery 3 months ago. When asked if she was having problems healing she states no that it seems to be going fine. [facility] Medical History Ankle fracture Left hip pain Right hip pain Nodular goiter Arthritis Migraine headache History of pain when walking History of edema Shortness of breath on exertion Gastric reflux CPAP (continuous positive airway pressure) dependence Hypothyroidism Thyromegaly COVID-19 Wears glasses Edentulous History of brain disorder Herniated disc Smoker Chronic cough ZANA (obstructive sleep apnea) Obesity Chronic low back pain Kidney stones COPD (chronic obstructive pulmonary disease) Anemia Hydocephalus Panic attacks Bipolar depression manic phase Anxiety Home Medications ?Medication ?Instructions ?Recorded ?Last Taken ?Type escitalopram oxalate 20 mg tablet 20 mg PO DAILY DEPRESSION #90 tabs 12/21/22 06/06/24 07:30 Rx albuterol sulfate 90 mcg/actuation 1 - 2 puff inhalation Q4H PRN PRN 04/07/23 Unknown Rx aerosol inhaler (Ventolin HFA) Wheezing ##1 omeprazole 40 mg capsule,delayed 40 mg PO DAILY 10/25/23 06/06/24 07:30 History release ondansetron 4 mg disintegrating 4 mg PO BID WITH USE OF CHANTIX 10/25/23 06/06/24 07:30 History tablet varenicline tartrate 1 mg tablet 1 mg PO BID 10/25/23 03/08/24 History acetaminophen 500 mg tablet 1,000 mg PO Q6H PRN fever or pain 11/15/23 Unknown History (Tylenol Extra Strength) miscellaneous medical supply #1 ea 05/06/24 Unknown Rx ibuprofen 800 mg tablet 800 mg PO TID PRN PRN pain 05/30/24 Unknown History aspirin 325 mg tablet 325 mg PO DAILY #20 tabs 06/06/24 Unknown Rx doxycycline hyclate 100 mg capsule 100 mg PO DAILY #10 caps 06/06/24 Unknown Rx cyclobenzaprine 10 mg tablet 10 mg PO TID muscle spasm 7 days 06/15/24 Unknown Rx #21 tabs oxycodone-acetaminophen 5 mg-325 1 tab PO Q6H pain 7 days #28 tabs 06/15/24 Unknown Rx mg tablet (Endocet) levothyroxine 150 mcg tablet 150 mcg PO QDAY #90 tabs 07/05/24 Unknown Rx Allergy/AdvReac Type Severity Reaction Status Date / Time ceftriaxone sodium (From Allergy Hives Verified 09/11/24 14:46 Rocephin) tramadol Allergy Hives Verified 09/11/24 14:46 bupropion HCl (From AdvReac MAKES Verified 09/11/24 14:46 Wellbutrin) ANXIETY WORSE Family History Grandmother Asthma Thyroid disorder Mother Asthma Thyroid disorder COPD (chronic obstructive pulmonary disease) Aunt Asthma Heart disease Hypertension Thyroid disorder Emphysema, unspecified Grandfather Asthma Diabetes Hypertension Hyperlipidemia COPD (chronic obstructive pulmonary disease) Surgical History H/O ventral hernia repair History of incisional hernia repair H/O: hysterectomy History of ankle surgery History of cholecystectomy History of bilateral tubal ligation D&C left ankle ligament repair History of tonsillectomy History of 3 sections Social History household members: family housing: house number of children: 3 current occupational status: unemployed pets and animals: Yes Smoking Status: Current every day smoker tobacco type: cigarettes second hand exposure: Yes alcohol intake: never substance use type: does not use caffeine: No what type of physical activity do you participate in: walking frequency: daily seatbelt use: always do you feel safe at home: Yes ROS ROS ED Constitutional Constitutional ED: Reports chills, fever(s) and sweats; Denies weight loss Eyes Eyes: Denies change in vision or diplopia ENT ENT ED: Reports rhinorrhea; Denies ear pain or sore throat Cardiovascular Cardiovascular: Denies chest pain, orthopnea, palpitations or racing heartbeat Respiratory/Chest Respiratory/Chest: Reports cough, dyspnea and dyspnea on exertion; Denies orthopnea Gastrointestinal Gastrointestinal: Reports nausea and vomiting; Denies abdominal pain or diarrhea Genitourinary Genitourinary ED: Reports other Details: Decreased urination ; Denies dysuria, hematuria or urinary frequency Musculoskeletal Musculoskeletal: Reports myalgias; Denies arthralgias Integumentary Denies abscess or rash Neurologic Neurologic: Reports headache(s); Denies weakness Psychiatric Psychiatric: Denies anxiety, depression, suicidal ideation or suicidal thoughts Endocrine Endocrinology: Denies polydipsia, polyphagia or polyuria Allergic/Immunologic Allergic/Immunologic ED: Denies mouth swelling, tongue swelling or urticaria EXAM Physical Exam Const Vital Signs: 09/11/24 14:42 09/11/24 17:15 09/11/24 17:53 Temperature 103 F H 99.9 F H Temperature Source Oral Oral Pulse Rate 126 H 116 H Respiratory Rate 24 H 25 H Respiratory Effort Respiratory Pattern Blood Pressure 98/70 120/68 Blood Pressure Mean 79 85 Pulse Ox 91 88 93 Oxygen Delivery Method Room Air Nasal Cannula Oxygen Flow Rate (L/min) 2 09/11/24 17:53 09/11/24 18:00 09/11/24 19:00 Temperature 100.3 F H 100 F H Temperature Source Oral Oral Pulse Rate 118 H 109 H Respiratory Rate 31 H 22 H Respiratory Effort Short of Breath Respiratory Pattern Tachypnea Blood Pressure 125/66 H 128/81 H Blood Pressure Mean 85 96 Pulse Ox 93 96 Oxygen Delivery Method Nasal Cannula Nasal Cannula Oxygen Flow Rate (L/min) 2 09/11/24 19:44 Temperature 98.9 F Temperature Source Pulse Rate 103 H Respiratory Rate 21 H Respiratory Effort Respiratory Pattern Blood Pressure 129/72 H Blood Pressure Mean 91 Pulse Ox 95 Oxygen Delivery Method Oxygen Flow Rate (L/min) Positive well nourished, well developed and obese General Appearance ED: well developed and NAD Nutritional Appearance: obese HEENT Reports normocephalic, head/scalp atraumatic and moist mucous membranes Eyes PERRL and EOMs intact bilaterally Neck no lymphadenopathy, supple and no JVD Resp clear to auscultation bilaterally Resp Narrative: Patient is breathing fast but is able to speak in complete sentences. Cardio regular rate, regular rhythm and no murmurs Rate: tachycardic GI normal to inspection, nondistended, normoactive bowel sounds and non-tender Palpation: soft Back/Spine no CVA tenderness and normal ROM Extremity Extremity Narrative: Left foot/ankle in boot othosis General Extremety ED: Negative for edema General Extremity: Negative for edema Neuro oriented x3 and CN's II-XII intact bilaterally Sensorium / Orientation: alert Motor Exam: strength 5/5 throughout Psych Attitude: agitated Mood & Affect: anxious; Negative for depressed or tearful Skin no rashes or lesions noted and no wounds MDM MDM MDM Narrative Medical decision making narrative: Differential diagnosis includes but not limited to viral syndrome dehydration pneumonia bronchitis asthma exacerbation electrolyte abnormalities ESTHER Patient is influenza A positive my independent interpretation of the chest x-ray is no acute process. White count is 11.6 hemoglobin 10.6 platelet count is 313. Glucose 99 sodium potassium within normal limits. Serum CO2 at 25 anion gap is 7 creatinine 0.56. Patient received a dose of Tylenol Toradol Zofran and IV fluids. She received an additional dose of ibuprofen and it appears that the fever has broken. Patient was advised that the fever most likely return. I would recommend aggressive fever control oral hydration monitoring breathing. She stated she has Zofran at home. Patient to be discharged home. History & Record Review Discussion w/independent historian: Patient Lab Data Labs: Laboratory Results - last 24 hr 09/11/24 17:25 WBC 11.6 H RBC 4.43 Hgb 10.6 L Hct 33.7 L MCV 76.1 L MCH 23.9 L MCHC 31.5 L RDW Std Deviation 54.5 H RDW Coeff of Thony 20.5 H Plt Count 313 MPV 9.8 Immature Gran % (Auto) 0.500 Neut % (Auto) 86.8 H Lymph % (Auto) 5.8 L Coke % (Auto) 6.6 Eos % (Auto) 0.0 Baso % (Auto) 0.3 Absolute Neuts (auto) 10.1 H Absolute Lymphs (auto) 0.67 L Nucleated RBC % 0.2 Differential Comment SCANNED Platelet Estimate ADEQUATE Anisocytosis 2+ Sodium 137 Potassium 3.7 Chloride 106 Carbon Dioxide 25.0 Anion Gap 7 BUN 5 L Creatinine 0.56 Est GFR (MDRD) Af Amer 156 Est GFR (MDRD) Non-Af 129 BUN/Creatinine Ratio 8.9 L Glucose 99 Calcium 8.9 Radiography Diagnostic Testing: Clinical Impression(s) from Imaging Studies Chest X-Ray 09/11/24 17:20 IMPRESSION: No radiographic evidence of acute cardiopulmonary disease [facility] Dis[facility] Triage Chief Complaint: Fever ED Provider: Giovanni Feldman Dx/Rx/DC Orders Clinical Impression: Influenza A, Acute dehydration Instructions: ED Dehydration (Adult), ED Influenza (Adult) Prescriptions: No Action escitalopram oxalate 20 mg tablet 20 mg PO DAILY Qty: 90 3RF acetaminophen [Tylenol Extra Strength] 500 mg tablet 1,000 mg PO Q6H PRN (Reason: fever or pain) levothyroxine 150 mcg tablet 150 mcg PO QDAY Qty: 90 3RF albuterol sulfate [Ventolin HFA] 90 mcg/actuation HFA aerosol inhaler 1 - 2 puff inhalation Q4H PRN PRN (Reason: Wheezing) Qty: 1 0RF varenicline tartrate 1 mg tablet 1 mg PO BID omeprazole 40 mg capsule,delayed release(DR/EC) 40 mg PO DAILY ondansetron 4 mg tablet,disintegrating 4 mg PO BID (DME) miscellaneous medical supply Misc See Rx Instructions .Route Qty: 1 0RF Rx Instructions: As directed ibuprofen 800 mg tablet 800 mg PO TID PRN PRN (Reason: pain) aspirin 325 mg tablet 325 mg PO DAILY Qty: 20 0RF doxycycline hyclate 100 mg capsule 100 mg PO DAILY Qty: 10 0RF oxycodone-acetaminophen [Endocet] 5-325 mg tablet 1 tab PO Q6H 7 Days Qty: 28 0RF cyclobenzaprine 10 mg tablet 10 mg PO TID 7 Days Qty: 21 0RF Primary Care Provider: Blaine Gage Referrals: Blaine Gage, [employer] [Primary Care Provider] - As Needed Print Language: Kiswahili Disposition Disposition: Home, Self Care Discharge Date/Time: 09/11/24 19:46
[2024-09-11 17:15] VITALS: BP 120/68; PULSE 116; RESP 25; TEMP 37.7; O2SAT 88
[2024-09-11] MEDS: Ondansetron 4 MG/2 ML Vial IV (17:20)
--- NOTE | 2024-09-11 17:20 | RAD_ITS ---
PROCEDURE: CHEST 1 VIEW REASON FOR EXAM: Shortness of breath TECHNIQUE: Frontal view of the chest. COMPARISON: 04/20/2023 FINDINGS: The cardiac and mediastinal contours are normal. The lungs are clear. RAD/Chest 1 View IMPRESSION: No radiographic evidence of acute cardiopulmonary disease [facility]
[2024-09-11] MEDS: Acetaminophen 160 MG/5 ML UDC 650 MG PO (17:21)
[2024-09-11] MEDS: Ketorolac 30 MG/ML Syringe IV (17:21)
[2024-09-11] MEDS: 0.9% Normal Saline (1000mL) 1,000 ML 999 ML IV (17:21)
[2024-09-11 17:36] LABS: Absolute Lymphocyte Count 0.67 X10^3/uL (0.83-4.51); Absolute Neutrophil Count 10.1 X10^3/uL (2.0-7.7); Basophil# 0.03 X10^3/uL; Basophil% 0.3 % (0-1); Hematocrit 33.7 % (37-47); Hemoglobin 10.6 g/dL (12.0-15.0); Lymphocyte # 0.67 X10^3/ul (0.83-4.51); Lymphocyte % 5.8 % (19-41); Mean Corp Hgb Conc 31.5 g/dL (32-36); Mean Corpuscular Hgb 23.9 pg (27.0-32.0); Mean Corpuscular Volume 76.1 fL (81-99); Mean Platelet Vol. 9.8 fl (6.2-12.0); Monocyte# 0.77 X10^3/uL; Monocyte% 6.6 % (0-10); NRBC Flagged by Analyzer 0.2 % (0-5); Neutrophil # 10.11 X10^3/uL (2.7-7.7); Neutrophil % 86.8 % (47-70); POSITIVE MORPHOLOGY YES; Platelet Count 313 K/mm3 (150-450); RBC Distribution Width CV 20.5 % (11.6-14.6); RBC Distribution Width SD 54.5 fl (35.1-43.9); Red Blood Count 4.43 M/mm3 (4.2-5.4); White Blood Count 11.6 K/mm3 (4.4-11.0)
[2024-09-11 17:53] VITALS: O2SAT 93
[2024-09-11 17:53] LABS: Differential Indicated SCAN CRITERIA MET
[2024-09-11 17:55] LABS: Anisocytosis 2+; Differential Comment SCANNED; Platelet Estimate ADEQUATE (ADEQ)
[2024-09-11 18:00] VITALS: BP 125/66; PULSE 118; RESP 31; TEMP 37.9; O2SAT 93
[2024-09-11 18:00] LABS: Anion Gap 7 (5-15); BUN 5 mg/dL (7-18); BUN/Creat Ratio 8.9 RATIO (10-20); Calcium,Total 8.9 mg/dL (8.5-10.1); Chloride 106 mmol/L (98-107); Creatinine, Serum 0.56 mg/dL (0.55-1.02); EST Glomerular Filtration Rate 129 mL/min (>60); Est Glom Filt Rate - Afr Amer 156 mL/min (>60); Glucose 99 mg/dL (74-106); Potassium 3.7 mmol/L (3.5-5.1); Sodium Level 137 mmol/L (136-145)
[2024-09-11] MEDS: Ibuprofen 100 MG/5 ML UDC 600 MG PO (18:59)
[2024-09-11 19:00] VITALS: BP 128/81; PULSE 109; RESP 22; TEMP 37.7; O2SAT 96
[2024-09-11 19:44] VITALS: BP 129/72; PULSE 103; RESP 21; TEMP 37.2; O2SAT 95
== END 2024-09-11 19:46 | disposition home or self-care (01) ==
PROVIDERS: Emergency Provider Emergency Medicine; PCP Nurse Practitioner Family; Visit Provider Emergency Medicine
DX: J10.1 Influenza due to other identified influenza virus with other respiratory manifestations (principal); F31.9 Bipolar disorder, unspecified; J44.9 Chronic obstructive pulmonary disease, unspecified; E86.0 Dehydration; K21.9 Gastro-esophageal reflux disease without esophagitis; E03.9 Hypothyroidism, unspecified; E66.9 Obesity, unspecified; F41.9 Anxiety disorder, unspecified; G47.33 Obstructive sleep apnea (adult) (pediatric); F17.210 Nicotine dependence, cigarettes, uncomplicated; Z88.1 Allergy status to other antibiotic agents; Z79.890 Hormone replacement therapy; Z79.82 Long term (current) use of aspirin; Z79.899 Other long term (current) drug therapy
CPT/HCPCS: 71045; 80048; 85025; 87631; 96361; 96374; 96375; 99284; J2405

== ENCOUNTER → 2024-11-21 | Outpatient (CLI) | payer MEDICARE, MEDICAID, SELFPAY ==
[2024-11-21 12:48] LABS: Absolute Lymphocyte Count 2.16 X10^3/uL (0.83-4.51); Absolute Neutrophil Count 9.5 X10^3/uL (2.0-7.7); Basophil# 0.06 X10^3/uL; Basophil% 0.5 % (0-1); Eosinophil# 0.33 X10^3/uL; Eosinophils% 2.6 % (0-5); Hemoglobin 12.2 g/dL (12.0-15.0); Lymphocyte # 2.16 X10^3/ul (0.83-4.51); Lymphocyte % 16.7 % (19-41); Mean Corp Hgb Conc 30.5 g/dL (32-36); Mean Corpuscular Hgb 23.5 pg (27.0-32.0); Mean Corpuscular Volume 76.9 fL (81-99); Mean Platelet Vol. 10.1 fl (6.2-12.0); Monocyte# 0.81 X10^3/uL; Monocyte% 6.3 % (0-10); NRBC Flagged by Analyzer 0 % (0-5); Neutrophil # 9.51 X10^3/uL (2.7-7.7); Neutrophil % 73.5 % (47-70); POSITIVE MORPHOLOGY YES; Platelet Count 441 K/mm3 (150-450); RBC Distribution Width CV 20.1 % (11.6-14.6); RBC Distribution Width SD 55.4 fl (35.1-43.9); White Blood Count 12.9 K/mm3 (4.4-11.0)
[2024-11-21 12:57] LABS: Differential Indicated SCAN CRITERIA MET
[2024-11-21 13:17] LABS: AST(SGOT) 16 U/L (<=31); Alanine Aminotransfer ALT/SGPT 10 U/L (<=34); Albumin, Serum 3.9 g/dL (3.5-5.0); Alkaline Phosphatase 120 U/L (35-104); Anion Gap 11 (5-15); BUN 10 mg/dL (4-19); Calcium,Total 9.6 mg/dL (7.6-11.0); Carbon Dioxide 23.4 mmol/L (21.0-32.0); Chloride 101 mmol/L (98-108); Creatinine, Serum 0.57 mg/dL (0.70-1.20); EST Glomerular Filtration Rate 120 (>60); Globulin 3.9 g/dL (2.2-4.2); Glucose 89 mg/dL (70-99); Potassium 4.6 mmol/L (3.3-5.1); Protein, Total 7.8 g/dL (5.9-8.4); Sodium Level 136 mmol/L (133-145)
== END | disposition home or self-care (01) ==
LOC: VSLAB 08:58
PROVIDERS: Internal Medicine Endocrinology, Diabetes & Metabolism; PCP Nurse Practitioner Family
DX: Z01.818 Encounter for other preprocedural examination (principal); E04.1 Nontoxic single thyroid nodule
CPT/HCPCS: 36415; 80053; 84439; 84443; 85025

== ENCOUNTER 2024-11-24 16:28 | Emergency (ER) | payer MEDICARE, MEDICAID, SELFPAY ==
[2024-11-24 16:29] VITALS: BP 113/72; PULSE 105; RESP 18; TEMP 37.4; O2SAT 98
--- NOTE | 2024-11-24 16:52 | EX.ED.DYSGE1 ---
HPI <CARLEEN Claire - Last Filed: 11/25/24 11:33> History of Present Illness Chief Complaint: Lower Extremity Injury Narrative Narrative: 39-year-old female had a fall and left trimalleolar fracture in May 2024 and had surgery with Dr. Cisneros. 2 weeks ago she developed pain near the medial ankle incision. She saw Dr. Cisneros a few days ago and the office and was told one of the screws is out of place. She is scheduled for revision surgery on November 26. She is wearing the compressive tube socks and an Rodney wrap but when moving her leg the medial ankle has popped several times and is acutely more painful despite taking ibuprofen and a muscle relaxer prompting her visit. She had no fall or trauma. [facility] <CARLEEN Claire - Last Filed: 11/25/24 11:33> [facility] Medical History (Updated 11/24/24 @ 17:01 by CARLEEN Claire) Thyroid disease Left hip pain Right hip pain Nodular goiter Arthritis Migraine headache History of pain when walking History of edema Shortness of breath on exertion Gastric reflux CPAP (continuous positive airway pressure) dependence Hypothyroidism Thyromegaly COVID-19 Wears glasses Edentulous History of brain disorder Herniated disc Smoker Chronic cough Obesity Chronic low back pain Kidney stones COPD (chronic obstructive pulmonary disease) Anemia Hydocephalus Panic attacks Bipolar depression manic phase Anxiety Home Medications ?Medication ?Instructions ?Recorded ?Last Taken ?Type escitalopram oxalate 20 mg tablet 20 mg PO DAILY DEPRESSION #90 tabs 12/21/22 06/06/24 07:30 Rx albuterol sulfate 90 mcg/actuation 1 - 2 puff inhalation Q4H PRN PRN 04/07/23 Unknown Rx aerosol inhaler (Ventolin HFA) Wheezing ##1 omeprazole 40 mg capsule,delayed 40 mg PO DAILY 10/25/23 06/06/24 07:30 History release ondansetron 4 mg disintegrating 4 mg PO BID WITH USE OF CHANTIX 10/25/23 06/06/24 07:30 History tablet acetaminophen 500 mg tablet 1,000 mg PO Q6H PRN fever or pain 11/15/23 Unknown History (Tylenol Extra Strength) miscellaneous medical supply #1 ea 05/06/24 Unknown Rx ibuprofen 800 mg tablet 800 mg PO TID PRN PRN pain 05/30/24 Unknown History cyclobenzaprine 10 mg tablet 10 mg PO TID muscle spasm 7 days 06/15/24 Unknown Rx #21 tabs cariprazine 1.5 mg capsule 1.5 mg PO DAILY 11/22/24 Unknown History (Vraylar) hydroxyzine HCl 10 mg tablet 10 mg PO TID PRN anxiety 11/22/24 Unknown History levothyroxine 200 mcg tablet 200 mcg PO QDAY #90 tabs 11/22/24 Unknown Rx lorazepam 0.5 mg tablet 0.5 mg PO DAILY PRN anxiety 11/22/24 Unknown History hydrocodone-acetaminophen 5-325mg 1 tab PO Q6H PRN PRN Pain 2 days 11/24/24 Unknown Rx 5mg-325mg #12 TABLETS Allergy/AdvReac Type Severity Reaction Status Date / Time ceftriaxone sodium (From Allergy Hives Verified 11/24/24 16:28 Rocephin) tramadol Allergy Hives Verified 11/24/24 16:28 bupropion HCl (From AdvReac MAKES Verified 11/24/24 16:28 Wellbutrin) ANXIETY WORSE Family History Grandmother Asthma Thyroid disorder Mother Asthma Thyroid disorder COPD (chronic obstructive pulmonary disease) Aunt Asthma Heart disease Hypertension Thyroid disorder Emphysema, unspecified Grandfather Asthma Diabetes Hypertension Hyperlipidemia COPD (chronic obstructive pulmonary disease) Surgical History (Updated 11/22/24 @ 15:10 by Мария Sampson) H/O ventral hernia repair History of incisional hernia repair H/O: hysterectomy History of ankle surgery History of cholecystectomy History of bilateral tubal ligation D&C left ankle ligament repair History of tonsillectomy History of 3 sections Social History household members: family housing: house number of children: 3 current occupational status: unemployed pets and animals: Yes Smoking Status: Current every day smoker tobacco type: cigarettes second hand exposure: Yes alcohol intake: never substance use type: does not use caffeine: No what type of physical activity do you participate in: walking frequency: daily seatbelt use: always do you feel safe at home: Yes ROS <CARLEEN Claire - Last Filed: 11/25/24 11:33> ROS ED ROS Narrative Neuro: Negative for motor/sensory dysfunction. Skin: Negative for rash, abscess, or wound. Musc: Positive for left ankle pain. EXAM <CARLEEN Claire - Last Filed: 11/25/24 11:33> Physical Exam Narrative Exam Narrative: CONST: Patient sitting in no acute distress. EYES: Normal inspection. NECK: Normal inspection. RESP: No respiratory distress, CTAB. CVS: Regular rate and rhythm, no murmur, no gallop. SKIN: Color normal, no rash, warm, dry, intact. EXTREMITIES: Medial ankle has chronic healed surgical scar. She is tender over this area and just posterior to the scar. No deformity or crepitus. 2+ DP pulse. NEURO: Alert and answering questions appropriately. PSYCH: Normal affect. Const Vital Signs: 11/24/24 16:29 Temperature 99.3 F H Temperature Source Oral Pulse Rate 105 H Respiratory Rate 18 Blood Pressure 113/72 Blood Pressure Mean 85 Pulse Ox 98 Oxygen Delivery Method Room Air <Dr. Giovanni Feldman DO - Last Filed: 11/24/24 18:50> Physical Exam Const Vital Signs: 11/24/24 16:29 Temperature 99.3 F H Temperature Source Oral Pulse Rate 105 H Respiratory Rate 18 Blood Pressure 113/72 Blood Pressure Mean 85 Pulse Ox 98 Oxygen Delivery Method Room Air MDM <CARLEEN Claire - Last Filed: 11/25/24 11:33> [facility] Narrative Medical decision making narrative: 39-year-old female who has a history of remote ORIF for left trimalleolar fracture. She is scheduled for revision surgery in 2 days due to a displaced screw. She felt several pops in her ankle today and has increased pain. There is no trauma. Neurovascularly intact. X-ray shows no new findings. She was treated with oxycodone and given a short prescription for home to get her through till surgery. OARRS reviewed. She was comfortable with this plan and discharged home in stable condition. 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 I performed a substantive portion of the visit including all aspects of the following. My bui findings include: History is 39-year-old female presenting to the emergency room with left ankle pain. Patient underwent ORIF last year with podiatry. She is scheduled for surgery on Monday due to failed hardware. Today she felt a pop in that ankle again and is worried that more hardware is failed. Exam is chronic changes healed surgical incision. Tenderness to palpation. No acute distress. No evidence of DVT. Medical Decison Making my independent interpretation plain films of the ankle is no obvious hardware failure of the screws. There is nonunion of the fracture fragments. Patient was given pain medication. She needs to speak with her surgeon before surgery regarding her symptomology. Discharge Plan Triage Chief Complaint: Lower Extremity Injury ED Midlevel Provider: Veronika Juan ED Provider: Giovnani Feldman Dx/Rx/DC Orders Clinical Impression: Acute left ankle pain Instructions: Understanding the Pain Response Prescriptions: New hydrocodone-acetaminophen 5-325 mg tablet 1 tab PO Q6H PRN PRN (Reason: Pain) 2 Days Qty: 12 0RF No Action escitalopram oxalate 20 mg tablet 20 mg PO DAILY Qty: 90 3RF acetaminophen [Tylenol Extra Strength] 500 mg tablet 1,000 mg PO Q6H PRN (Reason: fever or pain) albuterol sulfate [Ventolin HFA] 90 mcg/actuation HFA aerosol inhaler 1 - 2 puff inhalation Q4H PRN PRN (Reason: Wheezing) Qty: 1 0RF omeprazole 40 mg capsule,delayed release(DR/EC) 40 mg PO DAILY ondansetron 4 mg tablet,disintegrating 4 mg PO BID (DME) miscellaneous medical supply Misc See Rx Instructions .Route Qty: 1 0RF Rx Instructions: As directed ibuprofen 800 mg tablet 800 mg PO TID PRN PRN (Reason: pain) cyclobenzaprine 10 mg tablet 10 mg PO TID 7 Days Qty: 21 0RF lorazepam 0.5 mg tablet 0.5 mg PO DAILY PRN (Reason: anxiety) Vraylar 1.5 mg capsule 1.5 mg PO DAILY hydroxyzine HCl 10 mg tablet 10 mg PO TID PRN (Reason: anxiety) levothyroxine 200 mcg tablet 200 mcg PO QDAY Qty: 90 1RF Primary Care Provider: Blaine Gage Referrals: Yemi Cisneros, HALEIGH [Med Staff - Active Staff] - Blaine Gage, CONNIE SCRATCHER-C [Primary Care Provider] - Activity Restrictions/Additional Instructions: Use the Omer as needed and follow-up with your surgeon as scheduled Print Language: Ghanaian Disposition Disposition: Home, Self Care Discharge Date/Time: 11/24/24 19:02
[2024-11-24] MEDS: Ketorolac 30 MG/ML Syringe IM (17:06)
[2024-11-24] MEDS: oxyCODONE 5 MG Tablet PO (17:06)
[2024-11-24] MEDS: Ondansetron ODT 4 MG Tablet PO (17:07)
--- NOTE | 2024-11-24 17:46 | RAD_ITS ---
PROCEDURE: ANKLE MIN 3 VIEWS 11/24/2024 REASON FOR EXAM: ANKLE TECHNIQUE: 3 views of the left ankle COMPARISON: 06/06/2024 FINDINGS: Bones: Persistent fracture of the distal fibula after open reduction internal fixation with a lateral plate and screws consistent with nonunion. Persistent fracture through the base of medial malleolus and tibia after open reduction internal fixation with a medial plate and screws consistent with nonunion. Joints: Unremarkable. Soft tissues: Unremarkable. 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
== END 2024-11-24 19:02 | disposition home or self-care (01) ==
LOC: ED 17:31
PROVIDERS: Emergency Provider Emergency Medicine; PCP Nurse Practitioner Family; Visit Provider Emergency Medicine
DX: M25.572 Pain in left ankle and joints of left foot (principal); F31.9 Bipolar disorder, unspecified; J44.9 Chronic obstructive pulmonary disease, unspecified; Z96.89 Presence of other specified functional implants; K21.9 Gastro-esophageal reflux disease without esophagitis; E03.9 Hypothyroidism, unspecified; F41.9 Anxiety disorder, unspecified; M54.50 Low back pain, unspecified; G89.29 Other chronic pain; F17.210 Nicotine dependence, cigarettes, uncomplicated; Z79.890 Hormone replacement therapy; Z79.899 Other long term (current) drug therapy
CPT/HCPCS: 73610; 96372; 99283

== ENCOUNTER → 2024-11-25 | Outpatient (CLI) | payer MEDICARE, MEDICAID, SELFPAY | END | disposition home or self-care (01) | LOC: LAB 10:43 | PROVIDERS: PCP Nurse Practitioner Family; Referring Provider Nurse Practitioner Family; Visit Provider Nurse Practitioner Family | DX: E03.8 Other specified hypothyroidism (principal); E06.3 Autoimmune thyroiditis | CPT/HCPCS: 36415; 84439; 84443 ==

== ENCOUNTER 2024-11-26 09:14 | Day surgery (SDC) | payer MEDICARE, MEDICAID, SELFPAY ==
--- NOTE | 2024-11-22 15:15 | PAT.ANE_ITS ---
Pre-Assessment Diagnosis/Proposed Procedure Planned Operative Procedure(s): HARDWARE REMOVAL AND REPAIR LEFT ANKLE Anesthesia History Anesthesia History - psychiatric secretary: Anesthesia History - psychiatric secretary Hx Hospitalization No 11/22/24 15:05 Any Problems With Anesthesia No 11/22/24 15:05 Cholinesterase deficiency No 11/22/24 15:05 You/Your Family Experience No 11/22/24 15:05 fever (hyperthermia) with Relationship Recent Exposure to Contagious No 06/06/24 11:05 Disease Does patient have nerve No 11/22/24 15:05 stimulator Patient instructed to have device shut off --Does patient have Pacemaker or ICD? When Was Last Pacemaker Check QUESTION #4 FULL TEXT: You/Your Family Experience fever (hyperthermia) with Anesthesia Last Oral Intake Last Oral intake: Last Oral Intake NPO since Meds taken in AM with sips of water? Meds patient instructed to take am of surgery PONV PONV - psychiatric secretary: PONV - psychiatric secretary Female Yes 11/22/24 15:05 HX of Motion Sickness No 11/22/24 15:05 HX of N/V After Surgery No 11/22/24 15:05 Non-Smoker No 11/22/24 15:05 Duration of Surgery greater Yes 11/22/24 15:05 than 60 minutes Number of Risk Factors 2 11/22/24 15:05 PONV Score Moderate Risk 11/22/24 15:05 Height & Weight Height & Weight: Anesthesia: Height & Weight Height 5 ft 10 in 09/11/24 14:42 Respiratory Assessment Respiratory Assessment - psychiatric secretary: Respiratory Tract Infection Hx - psychiatric secretary Hx Respiratory Tract Infection No 11/22/24 15:05 STOP Sleep Apnea STOP Sleep Apnea - psychiatric secretary: STOP Sleep Apnea - psychiatric secretary Hx Hypertension No 11/22/24 15:05 Hx Sleep Apnea Yes 11/22/24 15:05 CPAP Yes: NONCOMPLIANT 11/22/24 15:05 BIPAP No 11/22/24 15:05 Do you snore loudly (louder than talking or can be heard Do you often feel tired/ fatigued/ sleepy during daytime? Has anyone observed you stop breathing during sleep? STOP Results Positive 11/22/24 15:05 QUESTION #5 FULL TEXT : Do you snore loudly (louder than talking or can be heard through closed doors)? 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 Specify any problems Hx of Preganancy in last 3 No 11/22/24 15:05 Months Nurse Filling Out Transfusion DSCHRIBER 11/22/24 15:05 & Questions: Date: 11/22/24 11/22/24 15:05 Time: 15:07 11/22/24 15:05 Patient unable to answer at this time (ie. confused, unrespo /Reproduction History /Reproductive History - psychiatric secretary: /Reproductive Hx- psychiatric secretary Hx Now No 11/22/24 15:05 Gestational Age (in weeks): EDC: Hx Hx Para Hx Section SAB No 11/22/24 15:05 PFSH Medical History (Updated 11/22/24 @ 15:10 by Мария Sampson) Thyroid disease Left hip pain Right hip pain Nodular goiter Arthritis Migraine headache History of pain when walking History of edema Shortness of breath on exertion Gastric reflux CPAP (continuous positive airway pressure) dependence Hypothyroidism Thyromegaly COVID-19 Wears glasses Edentulous History of brain disorder Herniated disc Smoker Chronic cough Obesity Chronic low back pain Kidney stones COPD (chronic obstructive pulmonary disease) Anemia Hydocephalus Panic attacks Bipolar depression manic phase Anxiety Home Medications ?Medication ?Instructions ?Recorded ?Last Taken ?Type escitalopram oxalate 20 mg tablet 20 mg PO DAILY DEPRE SSION #90 tabs 12/21/22 06/06/24 07:30 Rx albuterol sulfate 90 mcg/actuation 1 - 2 puff inhalati on Q4H PRN PRN 04/07/23 Unknown Rx aerosol inhaler (Ventolin HFA) Wheezing ##1 omeprazole 40 mg capsule,delayed 40 mg PO DAILY 06/06/24 07:30 History release ondansetron 4 mg disintegrating 4 mg PO BID WITH USE O F CHANTIX 10/25/23 06/06/24 07:30 History tablet acetaminophen 500 mg tablet 1,000 mg PO Q6H PRN fever or pain 11/15/23 Unknown History (Tylenol Extra Strength) miscellaneous medical supply #1 ea 05/06/24 Unknown Rx ibuprofen 800 mg tablet 800 mg PO TID PRN PRN pain 1 Unknown History cyclobenzaprine 10 mg tablet 10 mg PO TID muscle spasm 7 days 06/15/24 Unknown Rx #21 tabs cariprazine 1.5 mg capsule 1.5 mg PO DAILY 11/22/24 Un known History (Vraylar) hydroxyzine HCl 10 mg tablet 10 mg PO TID PRN anxiety 11/22/24 Unknown History levothyroxine 150 mcg tablet 150 mcg PO QHS 11/22/24 U nknown History lorazepam 0.5 mg tablet 0.5 mg PO DAILY PRN anxiety 11/22/24 Unknown History Allergy/AdvReac Type Severity Reaction Status Date / Time ceftriaxone sodium (From Allergy Hives Verified 11/22/24 15:00 Rocephin) tramadol Allergy Hives Verified 11/22/24 15:00 bupropion HCl (From AdvReac MAKES Verified 11/22/24 15:00 Wellbutrin) ANXIETY WORSE Family History Grandmother Asthma Thyroid disorder Mother Asthma Thyroid disorder COPD (chronic obstructive pulmonary disease) Aunt Asthma Heart disease Hypertension Thyroid disorder Emphysema, unspecified Grandfather Asthma Diabetes Hypertension Hyperlipidemia COPD (chronic obstructive pulmonary disease) Surgical History (Updated 11/22/24 @ 15:10 by Мария Sampson) H/O ventral hernia repair History of incisional hernia repair H/O: hysterectomy History of ankle surgery History of cholecystectomy History of bilateral tubal ligation D&C left ankle ligament repair History of tonsillectomy History of 3 sections Social History household members: family housing: house number of children: 3 current occupational status: unemployed pets and animals: Yes Smoking Status: Current every day smoker tobacco type: cigarettes second hand exposure: Yes alcohol intake: never substance use type: does not use caffeine: No what type of physical activity do you participate in: walking frequency: daily seatbelt use: always do you feel safe at home: Yes Audit: Pertinent Findings Pertinent Findings EKG Perinent findings: 10/27/2023. Normal sinus rhythm 91 bpm. Septal infarct age undetermined. Pulmonary function results/spirometer pertinent findings: Chest x-ray 09/11/2024. No radiographic evidence of acute cardiopulmonary disease. Additional pertinent findings: TSH is 16. 11/21/2024 lab. Free T4 is also low at 0.5 ng/dL. Current Visit Impressions Current Visit Impressions: Should have Synthroid adjusted due to elevated TSH level. Recommendation Anesthesia Recommendation Anesthesia recommendation: Anesthesia NOT approved
--- NOTE | 2024-11-25 14:26 | PAT.ANE_ITS ---
Pre-Assessment Diagnosis/Proposed Procedure Planned Operative Procedure(s): HARDWARE REMOVAL AND REPAIR LEFT ANKLE Anesthesia History Anesthesia History - delivery representative: Anesthesia History - delivery representative Hx Hospitalization No 11/22/24 15:05 Any Problems With Anesthesia No 11/22/24 15:05 Cholinesterase deficiency No 11/22/24 15:05 You/Your Family Experience No 11/22/24 15:05 fever (hyperthermia) with Relationship Recent Exposure to Contagious No 06/06/24 11:05 Disease Does patient have nerve No 11/22/24 15:05 stimulator Patient instructed to have device shut off --Does patient have Pacemaker or ICD? When Was Last Pacemaker Check QUESTION #4 FULL TEXT: You/Your Family Experience fever (hyperthermia) with Anesthesia Last Oral Intake Last Oral intake: Last Oral Intake NPO since Meds taken in AM with sips of water? Meds patient instructed to take am of surgery PONV PONV - delivery representative: PONV - delivery representative Female Yes 11/22/24 15:05 HX of Motion Sickness No 11/22/24 15:05 HX of N/V After Surgery No 11/22/24 15:05 Non-Smoker No 11/22/24 15:05 Duration of Surgery greater Yes 11/22/24 15:05 than 60 minutes Number of Risk Factors 2 11/22/24 15:05 PONV Score Moderate Risk 11/22/24 15:05 Height & Weight Height & Weight: Anesthesia: Height & Weight Height 5 ft 10 in 11/25/24 10:43 Weight: 147.871 kg 11/25/24 10:43 Respiratory Assessment Respiratory Assessment - delivery representative: Respiratory Tract Infection Hx - delivery representative Hx Respiratory Tract Infection No 11/22/24 15:05 STOP Sleep Apnea STOP Sleep Apnea - delivery representative: STOP Sleep Apnea - delivery representative Hx Hypertension No 11/22/24 15:05 Hx Sleep Apnea Yes 11/22/24 15:05 CPAP Yes: NONCOMPLIANT 11/22/24 15:05 BIPAP No 11/22/24 15:05 Do you snore loudly (louder than talking or can be heard Do you often feel tired/ fatigued/ sleepy during daytime? Has anyone observed you stop breathing during sleep? STOP Results Positive 11/22/24 15:05 QUESTION #5 FULL TEXT : Do you snore loudly (louder than talking or can be heard through closed doors)? 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 Specify any problems Hx of Preganancy in last 3 No 11/22/24 15:05 Months Nurse Filling Out Transfusion DSCHRIBER 11/22/24 15:05 & Questions: Date: 11/22/24 11/22/24 15:05 Time: 15:07 11/22/24 15:05 Patient unable to answer at this time (ie. confused, unrespo /Reproduction History /Reproductive History - delivery representative: /Reproductive Hx- delivery representative Hx Now No 11/22/24 15:05 Gestational Age (in weeks): EDC: Hx Hx Para Hx Section SAB No 11/24/24 16:29 PFSH Medical History (Updated 11/24/24 @ 17:01 by CARLEEN Claire) Thyroid disease Left hip pain Right hip pain Nodular goiter Arthritis Migraine headache History of pain when walking History of edema Shortness of breath on exertion Gastric reflux CPAP (continuous positive airway pressure) dependence Hypothyroidism Thyromegaly COVID-19 Wears glasses Edentulous History of brain disorder Herniated disc Smoker Chronic cough Obesity Chronic low back pain Kidney stones COPD (chronic obstructive pulmonary disease) Anemia Hydocephalus Panic attacks Bipolar depression manic phase Anxiety Home Medications ?Medication ?Instructions ?Recorded ?Last Taken ?Type escitalopram oxalate 20 mg tablet 20 mg PO DAILY DEPRE SSION #90 tabs 12/21/22 06/06/24 07:30 Rx albuterol sulfate 90 mcg/actuation 1 - 2 puff inhalati on Q4H PRN PRN 04/07/23 Unknown Rx aerosol inhaler (Ventolin HFA) Wheezing ##1 omeprazole 40 mg capsule,delayed 40 mg PO DAILY 06/06/24 07:30 History release ondansetron 4 mg disintegrating 4 mg PO BID WITH USE O F CHANTIX 10/25/23 06/06/24 07:30 History tablet acetaminophen 500 mg tablet 1,000 mg PO Q6H PRN fever or pain 11/15/23 Unknown History (Tylenol Extra Strength) miscellaneous medical supply #1 ea 05/06/24 Unknown Rx ibuprofen 800 mg tablet 800 mg PO TID PRN PRN pain 1 Unknown History cyclobenzaprine 10 mg tablet 10 mg PO TID muscle spasm 7 days 06/15/24 Unknown Rx #21 tabs cariprazine 1.5 mg capsule 1.5 mg PO DAILY 11/22/24 Un known History (Vraylar) hydroxyzine HCl 10 mg tablet 10 mg PO TID PRN anxiety 11/22/24 Unknown History levothyroxine 200 mcg tablet 200 mcg PO QDAY #90 tabs 11/22/24 Unknown Rx lorazepam 0.5 mg tablet 0.5 mg PO DAILY PRN anxiety 11/22/24 Unknown History hydrocodone-acetaminophen 5-325mg 1 tab PO Q6H PRN PRN Pain 2 days 11/24/24 Unknown Rx 5mg-325mg #12 TABLETS Allergy/AdvReac Type Severity Reaction Status Date / Time ceftriaxone sodium (From Allergy Hives Verified 11/24/24 16:28 Rocephin) tramadol Allergy Hives Verified 11/24/24 16:28 bupropion HCl (From AdvReac MAKES Verified 11/24/24 16:28 Wellbutrin) ANXIETY WORSE Family History Grandmother Asthma Thyroid disorder Mother Asthma Thyroid disorder COPD (chronic obstructive pulmonary disease) Aunt Asthma Heart disease Hypertension Thyroid disorder Emphysema, unspecified Grandfather Asthma Diabetes Hypertension Hyperlipidemia COPD (chronic obstructive pulmonary disease) Surgical History (Updated 11/22/24 @ 15:10 by Мария Sampson) H/O ventral hernia repair History of incisional hernia repair H/O: hysterectomy History of ankle surgery History of cholecystectomy History of bilateral tubal ligation D&C left ankle ligament repair History of tonsillectomy History of 3 sections Social History household members: family housing: house number of children: 3 current occupational status: unemployed pets and animals: Yes Smoking Status: Current every day smoker tobacco type: cigarettes second hand exposure: Yes alcohol intake: never substance use type: does not use caffeine: No what type of physical activity do you participate in: walking frequency: daily seatbelt use: always do you feel safe at home: Yes Audit: Pertinent Findings HISTORY of Pertinent Findings History of Pertinent Findings: EKG Pertinent Findings EKG Perinent findings 10/27/2023. Normal sinus 11/22/24 15:18 rhythm 91 bpm. Septal infarct age undetermined. Pulmonary Function Pertinent Findings Pulmonary function results/ Chest x-ray 09/11/2024. No 11/22/24 15:18 spirometer pertinent findings radiographic evidence of acute cardiopulmonary disease. Additional Pertinent Findings Additional pertinent findings TSH is 16. 11/21/2024 lab. 11/22/24 15:18 Free T4 is also low at 0.5 ng/dL. Current Visit Impressions Current Visit Impressions: Repeat TSH is below 7. Should be okay to proceed with anesthesia. Recommendation Anesthesia Recommendation Anesthesia recommendation: OPTIMIZED for anesthesia
[2024-11-26] VITALS (11 sets, daily range): BP systolic 93–146; BP diastolic 63–96; PULSE 100–108; RESP 16–18; TEMP 36.1–36.6; O2SAT 90–100; BMI 51.9
[2024-11-26] MEDS: 0.9% Normal Saline (1000mL) 1,000 ML 15 ML IV (10:07)
--- NOTE | 2024-11-26 10:26 | PRE.ANES_ITS ---
ASA Classification* ASA Classification ASA Classification: 3 Assessment & Plan Anesthesia* Anesthesia Assessment Anesthesia Assessment: Discussed sedation and/or anesthesia options, risks, benefits, and alternatives with patient/parents/legal guardian/POA. Questions invited. The patient/parents/legal guardian/POA seems to understand and agrees to proceed with anesthesia plan. Reviewed the physical assessment, medical history, allergy history and patient home medications list prior to surgery/procedure/anesthetic and documented any changes. Performed airway and anesthesia risk assessments. Anesthesia Type Anesthesia Type: General and Block (Block was discussed with the patient. She did not have good results the last time and would like to skip it this surgery.) History Source History Obtained from:: Patient and Chart Anesthesia Focused Assessment* Temperature: 97.9 F Pulse Rate: 102 Blood Pressure: 104/77 Respiratory Rate: 16 Pulse Ox: 97 Oxygen Delivery Method: Room Air Airway Assessment Mouth opens: 2 cm Mallampati Score: IV Teeth Condition: Missing (Patient is edentulous.) Neck Range of motion (ROM): Full ROM Focused Labs Anesthesia Preop lab: CBC WBC 12.9 K/mm3 (4.4-11.0) H 11/21/24 09:06 5 RBC 5.20 M/mm3 (4.2-5.4) 11/21/24 09:06 11/21/24 Hgb 12.2 g/dL (12.0-15.0) 11/21/24 09:06 11/21/24 Hct 40.0 % (37-47) 11/21/24 09:06 11/21/24 Plt Count 441 K/mm3 (150-450) 11/21/24 09:06 11/21/24 CHEMISTRY Potassium 4.6 mmol/L (3.3-5.1) 11/21/24 09:06 11/21/24 Sodium 136 mmol/L (133-145) 11/21/24 09:06 11/21/24 Magnesium 1.9 mg/dL (1.6-2.6) 07/28/21 12:49 07/28/21 BUN 10 mg/dL (4-19) 11/21/24 09:06 11/21/24 Creatinine 0.57 mg/dL (0.70-1.20) L 11/21/24 09:06 Glucose 89 mg/dL (70-99) 11/21/24 09:06 11/21/24 POC Glucose 94 mg/dL (70-110) 08/02/21 06:29 08/02/21 TSH 6.170 uIU/mL (0.300-4.200) H 11/25/24 10:45 COAG PT 13.7 SECONDS (11.7-14.9) 05/15/24 16:00 HCG, Quant < 1 mIU/mL (<9 non-preg) 10/21/18 15:22 Urine Test Negative Negative 08/02/21 06:18 08/02/21 Pre-Assessment Diagnosis/Proposed Procedure Planned Operative Procedure(s): HARDWARE REMOVAL AND REPAIR LEFT ANKLE Anesthesia History Anesthesia History - 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 When Was Last Pacemaker Check QUESTION #4 FULL TEXT: You/Your Family Experience fever (hyperthermia) with Anesthesia Last Oral Intake Last Oral intake: Last Oral Intake NPO since 05:00 11/26/24 09:47 Meds taken in AM with sips of Yes 11/26/24 09:47 water? Meds patient instructed to take am of surgery Any additional information?: Yes NPO since: 05:00 Meds taken in AM with sips of water?: Yes PONV PONV - marketing regional consultant: PONV - marketing regional consultant Female Yes 11/22/24 15:05 HX of Motion Sickness No 11/22/24 15:05 HX of N/V After Surgery No 11/22/24 15:05 Non-Smoker No 11/22/24 15:05 Duration of Surgery greater Yes 11/22/24 15:05 than 60 minutes Number of Risk Factors 2 11/22/24 15:05 PONV Score Moderate Risk 11/22/24 15:05 Height & Weight Height & Weight: Anesthesia: Height & Weight Height 5 ft 10 in 11/26/24 09:47 Weight: 164.2 kg 11/26/24 09:47 Body Mass Index (BMI) 51.9 11/26/24 09:47 Respiratory Assessment Respiratory Assessment - marketing regional consultant: Respiratory Tract Infection Hx - marketing regional consultant Hx Respiratory Tract Infection No 11/22/24 15:05 STOP Sleep Apnea STOP Sleep Apnea - marketing regional consultant: STOP Sleep Apnea - marketing regional consultant Hx Hypertension No 11/22/24 15:05 Hx Sleep Apnea Yes 11/22/24 15:05 CPAP Yes: NONCOMPLIANT 11/22/24 15:05 BIPAP No 11/22/24 15:05 Do you snore loudly (louder than talking or can be heard Do you often feel tired/ fatigued/ sleepy during daytime? Has anyone observed you stop breathing during sleep? STOP Results Positive 11/22/24 15:05 QUESTION #5 FULL TEXT : Do you snore loudly (louder than talking or can be heard through closed doors)? Tobacco Use History Tobacco Use History - marketing regional consultant: Tobacco Use History - marketing regional consultant Tobacco Use Smoking Status Current every day smoker 11/24/24 16:44 Hx Tobacco Use Yes 11/22/24 15:05 Years Smoking Packs Smoked per Day Smoking Cessation Date was within the last 15 years Hx Smoking Cessation Date Hx Smoking Cessation No 11/24/24 16:44 Counseling Any additional information?: Yes Smoking Status: Current every day smoker (Patient smoked today.) Hematologic Medial History Hematologic Hx - marketing regional consultant: Hematologic Medical Hx - clinical documentation developer Hx of Blood Transfusion Yes 11/22/24 15:05 Hx of Transfusion in last 3 No 11/22/24 15:05 Months Date of Last Transfusion (if within last 3 months) Ever experience any problems No 11/22/24 15:05 with transfusion(s)? Specify any problems Hx of Preganancy in last 3 No 11/22/24 15:05 Months Nurse Filling Out Transfusion DSCHRIBER 11/22/24 15:05 & Questions: Date: 11/22/24 11/22/24 15:05 Time: 15:07 11/22/24 15:05 Patient unable to answer at this time (ie. confused, unrespo /Reproduction History /Reproductive History - marketing regional consultant: /Reproductive Hx- marketing regional consultant Hx Now No 11/22/24 15:05 Gestational Age (in weeks): EDC: Hx Hx Para Hx Section SAB No 11/24/24 16:29 Active Medications Active Medications: Current Medications Generic Name Dose Route Start Last Admin Trade Name Freq PRN Reason Stop Dose Admin Clindamycin Phosphate 900 mg in 50 mls @ 75 mls/hr 11/26/24 11:30 Cleocin IV 11/26/24 12:09 PREOP ONE Sodium Chloride 1,000 mls @ 15 mls/hr 11/26/24 09:35 11/26/24 10:07 IV 15 mls/hr .Q48H VALENTÍN Administration PFSH Medical History Thyroid disease Left hip pain Right hip pain Nodular goiter Arthritis Migraine headache History of pain when walking History of edema Shortness of breath on exertion Gastric reflux CPAP (continuous positive airway pressure) dependence Hypothyroidism Thyromegaly COVID-19 Wears glasses Edentulous History of brain disorder Herniated disc Smoker Chronic cough Obesity Chronic low back pain Kidney stones COPD (chronic obstructive pulmonary disease) Anemia Hydocephalus Panic attacks Bipolar depression manic phase Anxiety Home Medications ?Medication ?Instructions ?Recorded ?Last Taken ?Type escitalopram oxalate 20 mg tablet 20 mg PO DAILY DEPRE SSION #90 tabs 12/21/22 11/26/24 05:00 Rx albuterol sulfate 90 mcg/actuation 1 - 2 puff inhalati on Q4H PRN PRN 04/07/23 Unknown Rx aerosol inhaler (Ventolin HFA) Wheezing ##1 omeprazole 40 mg capsule,delayed 40 mg PO DAILY 06/06/24 07:30 History release ondansetron 4 mg disintegrating 4 mg PO BID WITH USE O F CHANTIX 10/25/23 06/06/24 07:30 History tablet acetaminophen 500 mg tablet 1,000 mg PO Q6H PRN fever or pain 11/15/23 Unknown History (Tylenol Extra Strength) miscellaneous medical supply #1 ea 05/06/24 Unknown Rx ibuprofen 800 mg tablet 800 mg PO TID PRN PRN pain 1 Unknown History cyclobenzaprine 10 mg tablet 10 mg PO TID muscle spasm 7 days 06/15/24 Unknown Rx #21 tabs cariprazine 1.5 mg capsule 1.5 mg PO DAILY 11/22/24 05:00 History (Vraylar) hydroxyzine HCl 10 mg tablet 10 mg PO TID PRN anxiety 11/22/24 Unknown History levothyroxine 200 mcg tablet 200 mcg PO QDAY #90 tabs 11/22/24 11/26/24 04:00 Rx lorazepam 0.5 mg tablet 0.5 mg PO DAILY PRN anxiety 11/22/24 Unknown History hydrocodone-acetaminophen 5-325mg 1 tab PO Q6H PRN PRN Pain 2 days 11/24/24 Unknown Rx 5mg-325mg #12 TABLETS Allergy/AdvReac Type Severity Reaction Status Date / Time ceftriaxone sodium (From Allergy Hives Verified 11/26/24 09:46 Rocephin) tramadol Allergy Hives Verified 11/26/24 09:46 bupropion HCl (From AdvReac MAKES Verified 11/26/24 09:46 Wellbutrin) ANXIETY WORSE Family History Grandmother Asthma Thyroid disorder Mother Asthma Thyroid disorder COPD (chronic obstructive pulmonary disease) Aunt Asthma Heart disease Hypertension Thyroid disorder Emphysema, unspecified Grandfather Asthma Diabetes Hypertension Hyperlipidemia COPD (chronic obstructive pulmonary disease) Surgical History H/O ventral hernia repair History of incisional hernia repair H/O: hysterectomy History of ankle surgery History of cholecystectomy History of bilateral tubal ligation D&C left ankle ligament repair History of tonsillectomy History of 3 sections Social History household members: family housing: house number of children: 3 current occupational status: unemployed pets and animals: Yes Smoking Status: Current every day smoker (Patient smoked today.) tobacco type: cigarettes second hand exposure: Yes alcohol intake: never substance use type: does not use caffeine: No what type of physical activity do you participate in: walking frequency: daily seatbelt use: always do you feel safe at home: Yes Review of Systems (Anesthesia) ROS Narrative System reviewed and no additional complaints, except as documented.
[2024-11-26] MEDS: Clindamycin 900 MG/50 ML BAG 75 MG IV (10:48)
--- NOTE | 2024-11-26 11:15 | RAD_ITS ---
PROCEDURE: ANKLE 2 VIEWS 11/26/2024 REASON FOR EXAM: HARDWARE REMOVAL LT ANKLE TECHNIQUE: Intraoperative fluoroscopic views of the left ankle. 6 images are provided. Radiation dose: 2.65 mGy. Radiation exposure: 68.4 seconds. COMPARISON: 07/28/2025. FINDINGS: Unremarkable fibular metallic plate and screws. Ununited distal fibular fracture, unchanged. Medial malleolar metallic plate and screws were removed. 2 metallic screws have been inserted in the medial malleolus. Good alignment is noted at the level of the fracture line. RAD/Ankle 2 Views IMPRESSION: Unremarkable fibular metallic plate and screws. Ununited distal fibular fracture, unchanged. Medial malleolar metallic plate and screws were removed. 2 metallic screws have been inserted in the medial malleolus. Good alignment is noted at the level of the fracture line. Reading [facility]
[2024-11-26] MEDS: Lidocaine 1% (20 ml mdv) 20 ML Vial (11:48)
[2024-11-26] MEDS: Bupivacaine Mpf 0.5% 30 ML VIAL (11:48)
--- NOTE | 2024-11-26 12:59 | PCM.DC ---
Discharge Instructions Diet Discharge Diet: No restrictions DC O2, CPAP, BIPAP needs Home O2 Discharge instructions: No Dressing / Incision Discharge Activity: May Not Drive, May Shower (Please utilize cast bag covering when showering to keep dressings clean, dry, and intact while seated on shower chair) and Use Crutches (She will remain nonweightbearing to left lower extremity with the assistance of wheelchair) Weight Bearing Status: No weight bearing (Remain nonweightbearing to left lower extremity with the assistance of wheelchair) Keep extremity elevated above heart level: Left Leg (Please elevate left lower extremity at all times of rest for postoperative edema control) Dressing / Incision Call your doctor if you observe: Fever of 101 or Higher, Shortness of breath, Chest pain, Calf discomfort and Uncontrolled pain Change Dressing in: do not change dressing Remove Dressing in: leave in place till F/U (Do not change dressing. Physician will change dressing at first postoperative appointment) Cleanse incision/area with: Do not get Incision Wet and Keep Dressing Clean & Dry (Do not get wet. Please keep dressing clean, dry, and intact to the left lower extremity and utilize cast bag when showering to remain compliant) Follow Up Care Please Follow Up With: Yemi Cisneros DPM When: Patient has first postoperative appointment early next week Test Results: Test results from this visit will be discussed in further detail at your follow-up appointment, if applicable. Discharge Plan Admission Attending Provider: Yemi Cisneros Primary Care Provider: Blaine Gage Cory Instructions Print Language: Indonesian Discharge Orders/Prescriptions Prescriptions: New doxycycline hyclate 100 mg capsule 100 mg PO DAILY Qty: 10 0RF aspirin 325 mg tablet 325 mg PO DAILY 20 Days Qty: 20 0RF oxycodone-acetaminophen 5-325 mg tablet 1 tab PO Q6H PRN (Reason: pain) 7 Days Qty: 42 0RF No Action escitalopram oxalate 20 mg tablet 20 mg PO DAILY Qty: 90 3RF acetaminophen [Tylenol Extra Strength] 500 mg tablet 1,000 mg PO Q6H PRN (Reason: fever or pain) albuterol sulfate [Ventolin HFA] 90 mcg/actuation HFA aerosol inhaler 1 - 2 puff inhalation Q4H PRN PRN (Reason: Wheezing) Qty: 1 0RF omeprazole 40 mg capsule,delayed release(DR/EC) 40 mg PO DAILY ondansetron 4 mg tablet,disintegrating 4 mg PO BID (DME) miscellaneous medical supply Misc See Rx Instructions .Route Qty: 1 0RF Rx Instructions: As directed ibuprofen 800 mg tablet 800 mg PO TID PRN PRN (Reason: pain) cyclobenzaprine 10 mg tablet 10 mg PO TID 7 Days Qty: 21 0RF lorazepam 0.5 mg tablet 0.5 mg PO DAILY PRN (Reason: anxiety) Vraylar 1.5 mg capsule 1.5 mg PO DAILY hydroxyzine HCl 10 mg tablet 10 mg PO TID PRN (Reason: anxiety) hydrocodone-acetaminophen 5-325 mg tablet 1 tab PO Q6H PRN PRN (Reason: Pain) 2 Days Qty: 12 0RF levothyroxine 200 mcg tablet 200 mcg PO QDAY Qty: 90 1RF Referrals / Follow Up: Blaine Gage Cory, GERIATRIC ASSISTANT-C [Primary Care Provider] - Disposition Disposition (needs filled in before D/C Order can be placed): Home, Self Care
--- NOTE | 2024-11-26 13:06 | OP.PCM_ITS ---
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 ORIF medial malleolus left ankle 2. Removal of hardware left ankle 3. Application of AO splint left lower extremity space systems operations superintendent: Yes Fire Supervisor: Dr. Lillie Borges, DPM PGY-2 Tasks completed by porcelain buildup assistant: Opening & closing, Dissecting tissue and Implanting device Type of Anesthesia: General and Local (20 cc one-to-one mixture 1% lidocaine plain and 0.5% Marcaine plain) RN Documented Start/Stop Times: Operation Date: 11/26/24 11:30 Case Time Into Pre-Op 11/26/24 09:31 Out of Pre-Op 11/26/24 10:44 Anesthesia Start 11/26/24 10:48 Into Room 11/26/24 10:48 Procedure Start 11/26/24 11:21 Procedure End 11/26/24 12:32 Anesthesia End 11/26/24 12:37 Out of Room 11/26/24 12:37 Into Recovery 11/26/24 12:38 Procedure Start Time: 11:21 Procedure Stop Time: 12:32 Select all DRAINS/GRAFTS/IMPLANTS that apply: Implanted device Implanted device details: 4.0 x 44 mm partially threaded cannulated screw with washer; 4.0 x 50 mm partially cannulated screw with washer Estimated Blood Loss: < 2mL Specimen collected: No Description of surgery: HPI/indication: This is a 39-year-old female who previously underwent ORIF on 06/06/2024 for bimalleolar fracture. Earlier in October patient states she was in [place] looking for a new place to live and later at night placed weight to the foot to shift in bed hearing a pop in the ankle with increased pain. She had previously been undergoing bone stimulator to her fracture sites to treat ongoing nonunion due to continued smoking during time of incident. She did follow-up in office last week with new x-rays were taken demonstrating refracture of the medial mall component with disruption of the surgical hardware and ongoing nonunion. Discussed returning to the OR for surgical fixation/ORIF of displaced medial malleoli fracture of the left lower extremity. She is in agreement that the site does require fixation as the fragment is now malpositioned and hardware disrupted. I reviewed the condition and the treatment options with the patient. Patient is noted to have an unstable and nonhealing fracture of the medial malleolus thus necessitating surgical correction. Patient would like to proceed forward with the intervention. Procedure was discussed in great detail. Discussed all possible benefits versus risks and potential complications in detail. Advised the patient the risks include but are not limited to the following: Pain, continued pain, complex regional pain syndrome, deformity, continued deformity, recurrence, overcorrection, under correction, numbness/neuritis, swelling, scarring, poor cosmetic result, bleeding, hardware failure, symptomatic hardware, the need for further surgery/procedures, fracture, nonunion, delayed union, nonhealing/delayed healing, dehiscence, infection, blood clots, allergic reaction, transfer lesion, postoperative arthritis, weakness, shoe gear problems, inability to walk, inability to wear shoe gear, stroke, heart attack, addiction to pain medication, loss of function, loss of limb, loss of life. Patient expressed understanding with and was able to repeat these back. Typical postoperative course was reviewed with the patient the patient expressed understanding and agreement. Consent forms were reviewed and signed at patient's free will. No promises were made. No guarantees were given. Patient was informed again that she should stop smoking to optimize healing postsurgery in addition to continued use of her bone stimulator. All diagnostic data was re viewed prior to entering the OR. Operative limb was signed prior to entering the OR. Patient was scheduled to undergo ORIF of the left ankle medial malleolus with hardware removal and implantation of new hardware at [facility] on 11/26/2024. Procedure: Prior to entering OR patient was set to undergo popliteal block by anesthesia team in PACU however patient refused this stating she does not like the altered sensation. Under mild sedation patient was then brought into the operating room placed on the table in the supine position. Patient was secured to table with safety belt. Right leg was secured with taping/strapping. Following induction of general anesthetic with airway placement secured, a blanket bump was placed under the left hip. Left lower extremity was elevated via a blanket bump. A well-padded pneumatic thigh tourniquet was then placed about the patient's left thigh and secured via Coban wrapping. The left lower extremity was then scrubbed, prepped, and draped in the usual aseptic manner. Next, prominent landmarks were marked utilizing guidance of fluoroscopy including the level of her fracture of the medial malleolus and hardware sites. A local anesthetic block was then performed proximal to the surgical site to the posterior tibial nerve and the saphenous nerve utilizing 10 cc of a one-to-one mixture of 1% lidocaine plain and 0.5% Marcaine plain. Esmarch bandage was utilized to exsanguinate the left foot and the pneumatic thigh tourniquet was inflated to 300 mmHg. At this time attention was directed to the medial ankle where a linear incision was made overlying the medial malleolus through previous surgical incision utilizing a #15 blade. Incision was deepened via sharp and blunt dissection. There was noted scar tissue at the surgical site extending down to the previous surgical hardware. Care was taken to identify and retract all vital neurovascular structures. Incision was made through the periosteum and the fracture site utilizing a #15 blade exposing the surgical hardware and the displaced nonunion of her medial malleolus. 4 total screws were then removed from the 3-hole medial hook plate. Screw sizes measured 4.0 x 24 mm cancellous screw, 4.0 x 24 mm cancellous screw, 3.5 x 24 mm locking screw, and a 3.5 x 12 mm locking screw. Screws were passed from the operative field to the table in toto and discarded per policy. The medial hook plate was then freed from the site utilizing a [place] and passed from the operative field to the table in toto. Plate was discarded per policy. Site was then flushed with copious amounts of normal sterile saline. Surgical site was refresh and utilizing curettage and was reduced via pointed reduction clamp. Fragment was noted to be soft secondary to continued smoking despite use of her bone stimulator thus necessitating utilization of washer for screw placement. Fluoroscopic imaging was obtained in multiple views demonstrating improved placement and reduction of her medial malleolus fragment. Next, following AO principle 2 screws were placed in the medial malleolar fragment measuring 4.0 x 44 mm cannulated screw with washer and 4.0 x 50 mm cannulated screw with washer. Site was again flushed with copious amounts of normal sterile saline. Fluoroscopic imaging was obtained following hardware placement demonstrating improved reduction and alignment of the ankle mortise with reduction of her medial malleolus fragment. Next, deep tissues were closed utilizing 3-0 Vicryl. Subcuticular stitch was then performed utilizing 4-0 Monocryl. Skin was then reapproximated utilizing 2-0 Prolene in simple interrupted fashion. At this time pneumatic thigh tourniquet was deflated and a prompt hyperemic response was noted to the digits of the left foot. A postoperative pain control block was then performed proximal to the surgical site consisting of 10 cc of a one-to-one mixture of 1% lidocaine plain and 0.5% Marcaine plain. Incision sites were then dressed with Betadine soaked Adaptic, 4 x 4 gauze, Kerlix, Webril cast padding, 4 inch Rodney wrap and 6 inch Rodney wrap. A well molded AO splint was then applied and anchored with a 4 inch and 6 inch Rodney wrap and modified Lara compression fashion. Patient tolerated the procedure and anesthesia well was transported the PACU vital signs stable vascular status intact of the left foot. She will remain nonweightbearing to the left lower extremity with the assistance of walker and wheelchair. She will continue to elevate left lower extremity at all times of rest for postoperative edema control. She is also instructed to keep all dressings clean, dry, and intact to the left lower extremity. She will take all postoperative medication as instructed. She will follow with me in office for first postoperative appointment early next week. Patient is set to move to [place], [place] on December 06, 2024. We have discussed establishing new provider in the area for continued follow-up care. Surgical Findings: Displaced medial malleolar fracture with nonunion Left Ankle and disruption of surgical hardware. Complications Complications: No Admit VTE Documentation VTE Present on Admission: No VTE Mechan Device Prophylaxis: SCD's VTE Pharm Prophylaxis ordered?: Yes
--- NOTE | 2024-11-26 13:15 | RAD_ITS ---
PROCEDURE: ANKLE MIN 3 VIEWS 11/26/2024 REASON FOR EXAM: POSTOP REVISION MEDIAL MAL(PACU) TECHNIQUE: 4 views of the left ankle COMPARISON: 06/02/2020, 11/24/2024; 11/26/2024 intraoperative images FINDINGS: Bones: Medial malleolar fracture ORIF revision appears well aligned. Distal fibula ORIF with persistent lack of bone bridging or callus formation across the fracture. Joints: Normal alignment. Mortise appears intact. No effusion. Soft tissues: Lateral swelling. RAD/Ankle min 3 Views IMPRESSION: Expected postoperative appearance of medial malleolus ORIF. Reading Location: [facility]
[2024-11-26] MEDS: oxyCODONE 5 MG Tablet PO (14:00)
--- NOTE | 2024-11-26 15:03 | PCM.POST.ANE ---
Anesthesia: Postop Eval I Current Vital Signs Temperature: 97.6 F Pulse Rate: 100 Blood Pressure: 93/63 Respiratory Rate: 18 Pulse Ox: 95 Oxygen Delivery Method: Room Air Assessment Airway patent: Yes Spontaneous unlabored respirations: Yes Mental status: Awake nausea: No Vomiting: No Anesthesia Complication: No Fluid Hydration Crystalloid volume administer (ml): 1,000 Total IV fluid infused: 1,000 Progress Note Anesthesia document: Postop Eval 1 completed: Yes
--- NOTE | 2024-11-26 16:25 | POSTOPAN2_ITS ---
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/MATERIALS EXCHANGE SPECIALIST.ACAR Spontaneous unlabored Yes 11/26/24 15:04 WASTE/MATERIALS EXCHANGE SPECIALIST.ACAR respirations Mental status Awake 11/26/24 15:04 WASTE/MATERIALS EXCHANGE SPECIALIST.ACAR nausea No 11/26/24 15:04 WASTE/MATERIALS EXCHANGE SPECIALIST.ACAR Vomiting No 11/26/24 15:04 WASTE/MATERIALS EXCHANGE SPECIALIST.ACAR Anesthesia Postop Eval I: Fluid Summary Crystalloid volume administer 1,000 11/26/24 15:04 WASTE/MATERIALS EXCHANGE SPECIALIST.ACAR (ml) Colloids volume administered ( ml) Blood Product volume administered (ml) Total IV fluid infused 1,000 11/26/24 15:04 WASTE/MATERIALS EXCHANGE SPECIALIST.ACAR Anesthesia Postop Eval I: Summary Notes Anesthesia Complication No 11/26/24 15:04 WASTE/MATERIALS EXCHANGE SPECIALIST.ACAR Anesthesia Complication Comment: Post-operative progress note Anesthesia: Postop Eval II Evaluation Mental status: Awake and Calm Pain Level: 2 nausea: No Vomiting: No Progress Note Post-operative progress note: Doing well on IV morphine. Patient is still okay without getting the block. Complications Anesthesia Complication: No
--- NOTE | 2024-11-26 16:25 | PCM.POSTANE2 ---
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 Spontaneous unlabored Yes 11/26/24 15:04 BILLBOARD POSTER HELPER.ACAR respirations Mental status Awake 11/26/24 15:04 BILLBOARD POSTER HELPER.ACAR nausea No 11/26/24 15:04 BILLBOARD POSTER HELPER.ACAR Vomiting No 11/26/24 15:04 BILLBOARD POSTER HELPER.ACAR Anesthesia Postop Eval I: Fluid Summary Crystalloid volume administer 1,000 11/26/24 15:04 BILLBOARD POSTER HELPER.ACAR (ml) Colloids volume administered ( ml) Blood Product volume administered (ml) Total IV fluid infused 1,000 11/26/24 15:04 BILLBOARD POSTER HELPER.ACAR Anesthesia Postop Eval I: Summary Notes Anesthesia Complication No 11/26/24 15:04 BILLBOARD POSTER HELPER.ACAR Anesthesia Complication Comment: Post-operative progress note Anesthesia: Postop Eval II Evaluation Mental status: Awake and Calm Pain Level: 2 nausea: No Vomiting: No Progress Note Post-operative progress note: Doing well on IV morphine. Patient is still okay without getting the block. Complications Anesthesia Complication: No
== END 2024-11-26 15:07 | disposition home or self-care (01) ==
LOC: SDC 09:16 → AC 09:16
PROVIDERS: PCP Nurse Practitioner Family; Referring Provider Student in an Organized Health Care Education/Training Program; Visit Provider Student in an Organized Health Care Education/Training Program
PROC: (CPT 27766; principal; 2024-11-26 11:15)
DX: S82.52XK Displaced fracture of medial malleolus of left tibia, subsequent encounter for closed fracture with nonunion (principal); F31.9 Bipolar disorder, unspecified; J44.9 Chronic obstructive pulmonary disease, unspecified; Z68.43 Body mass index [BMI] 50.0-59.9, adult; T84.428A Displacement of other internal orthopedic devices, implants and grafts, initial encounter; Y79.8 Miscellaneous orthopedic devices associated with adverse incidents, not elsewhere classified; X58.XXXA Exposure to other specified factors, initial encounter; K21.9 Gastro-esophageal reflux disease without esophagitis; E03.9 Hypothyroidism, unspecified; F41.9 Anxiety disorder, unspecified; E66.9 Obesity, unspecified; F17.210 Nicotine dependence, cigarettes, uncomplicated; Z90.49 Acquired absence of other specified parts of digestive tract; Z86.69 Personal history of other diseases of the nervous system and sense organs; Z79.890 Hormone replacement therapy; Z79.899 Other long term (current) drug therapy
CPT/HCPCS: 27766; 20680; 01480; 73600; 73610; 76000; C1713; J2405

== ENCOUNTER → 2025-02-04 | Outpatient (CLI) | payer MEDICARE, MEDICAID, SELFPAY ==
[2025-02-04 12:27] LABS: Absolute Lymphocyte Count 2.07 X10^3/uL (0.83-4.51); Absolute Neutrophil Count 8.5 X10^3/uL (2.0-7.7); Basophil# 0.06 X10^3/uL; Basophil% 0.5 % (0-1); Eosinophil# 0.33 X10^3/uL; Eosinophils% 2.8 % (0-5); Hematocrit 39.6 % (37-47); Hemoglobin 12.1 g/dL (12.0-15.0); Lymphocyte # 2.07 X10^3/ul (0.83-4.51); Lymphocyte % 17.6 % (19-41); Mean Corp Hgb Conc 30.6 g/dL (32-36); Mean Corpuscular Hgb 22.5 pg (27.0-32.0); Mean Corpuscular Volume 73.7 fL (81-99); Mean Platelet Vol. 10.5 fl (6.2-12.0); Monocyte% 6.8 % (0-10); NRBC Flagged by Analyzer 0 % (0-5); Neutrophil # 8.47 X10^3/uL (2.7-7.7); POSITIVE MORPHOLOGY YES; Platelet Count 345 K/mm3 (150-450); RBC Distribution Width CV 23.8 % (11.6-14.6); RBC Distribution Width SD 61.4 fl (35.1-43.9); Red Blood Count 5.37 M/mm3 (4.2-5.4); White Blood Count 11.8 K/mm3 (4.4-11.0)
[2025-02-04 12:54] LABS: Differential Indicated SCAN CRITERIA MET
[2025-02-04 13:02] LABS: AST(SGOT) 18 U/L (<=31); Alanine Aminotransfer ALT/SGPT 11 U/L (<=34); Albumin, Serum 3.8 g/dL (3.5-5.0); Alkaline Phosphatase 115 U/L (35-104); Anion Gap 12 (5-15); BUN 10 mg/dL (4-19); BUN/Creat Ratio 19.3 RATIO (10-20); Calcium,Total 9.4 mg/dL (7.6-11.0); Carbon Dioxide 24.7 mmol/L (21.0-32.0); Chloride 102 mmol/L (98-108); Creatinine, Serum 0.52 mg/dL (0.70-1.20); EST Glomerular Filtration Rate 122 (>60); Globulin 3.8 g/dL (2.2-4.2); Glucose 69 mg/dL (70-99); Potassium 3.9 mmol/L (3.3-5.1); Protein, Total 7.6 g/dL (5.9-8.4); Sodium Level 138 mmol/L (133-145); Total Bilirubin 0.41 mg/dL (0.00-1.30)
[2025-02-04 13:25] LABS: Anisocytosis RARE
[2025-02-04 13:57] LABS: Microalbumin,Random Urine 12.8 mg/L (NO RANGE EST.)
[2025-02-06 15:33] LABS: Ferritin 73 ng/mL (22-378); Iron 21 ug/dL (50-170); Iron Binding Capacity,Total 288 ug/dL (250-450); Iron Binding Capacity,Unsat 267 ug/dL (228-428)
== END | disposition home or self-care (01) ==
LOC: VSLAB 09:18
PROVIDERS: PCP Nurse Practitioner Family
DX: I10 Essential (primary) hypertension (principal); Z13.1 Encounter for screening for diabetes mellitus; R53.83 Other fatigue
CPT/HCPCS: 36415; 80053; 82043; 82728; 83540; 83550; 85025

== ENCOUNTER → 2025-03-10 | Outpatient (CLI) | payer MEDICARE, MEDICAID, SELFPAY ==
--- NOTE | 2025-03-10 13:37 | US_ITS ---
PROCEDURE: HEAD/NECK SOFT TISSUE 03/10/2025 REASON FOR EXAM: LOCALIZED SWELLING, MASS LUMP NECK TECHNIQUE: HEAD/NECK SOFT TISSUE COMPARISON: None FINDINGS: The palpable lump corresponds to an 8 mm x 10 mm x 4 mm benign-appearing lymph node. US/Head/Neck Soft Tissue IMPRESSION: The palpable lump corresponds to an 8 mm x 10 mm x 4 mm benign-appearing lymph node. Reading Location: [id number]
== END | disposition home or self-care (01) ==
LOC: US 13:33
PROVIDERS: PCP Nurse Practitioner Family
DX: R22.1 Localized swelling, mass and lump, neck (principal)
CPT/HCPCS: 76536

== ENCOUNTER → 2025-03-28 | Outpatient (CLI) | payer MEDICARE, MEDICAID, SELFPAY ==
[2025-03-28 12:20] LABS: Hematocrit 40.6 % (37-47); Hemoglobin 12.7 g/dL (12.0-15.0); Immature Granulocytes Count 0.030 X10^3/uL (0.0-0.0); Mean Corp Hgb Conc 31.3 g/dL (32-36); Mean Corpuscular Volume 78.2 fL (81-99); Mean Platelet Vol. 9.9 fl (6.2-12.0); NRBC Flagged by Analyzer 0 % (0-5); POSITIVE MORPHOLOGY YES; Platelet Count 356 K/mm3 (150-450); RBC Distribution Width CV 22.1 % (11.6-14.6); RBC Distribution Width SD 62.0 fl (35.1-43.9); Red Blood Count 5.19 M/mm3 (4.2-5.4); White Blood Count 10.3 K/mm3 (4.4-11.0)
[2025-03-28 12:25] LABS: Differential Indicated SCAN CRITERIA MET
[2025-03-28 12:56] LABS: Anisocytosis 1+
[2025-03-28 13:00] LABS: Ferritin 85 ng/mL (22-378); Iron 40 ug/dL (50-170); Iron Binding Capacity,Total 281 ug/dL (250-450); Iron Binding Capacity,Unsat 241 ug/dL (228-428)
== END | disposition home or self-care (01) ==
LOC: VSLAB 10:50
PROVIDERS: PCP Nurse Practitioner Family; Visit Provider Nurse Practitioner Family
DX: E03.9 Hypothyroidism, unspecified (principal); D50.9 Iron deficiency anemia, unspecified
CPT/HCPCS: 36415; 82728; 83540; 83550; 84439; 84443; 85025